=== PATIENT | female | born 1955 | race Caucasian/White ===

== ENCOUNTER → 2018-09-07 07:41 | Outpatient (CLI) | payer BC, SELFPAY ==
--- NOTE | 2018-09-07 07:50 | RAD_ITS ---
STUDY: X-RAY - RIGHT SHOULDER REASON FOR EXAM: Female, 62 years old. Pain. TECHNIQUE: 4 view(s) of the shoulder. COMPARISON: None. FINDINGS: There is mild degenerative arthrosis of the glenohumeral articulation. There is degenerative arthrosis of the acromioclavicular joint without inferior osseous spur formation. Normal acromion. There is no acute fracture, dislocation or destructive osseous pathology. Normal humeral head and visualized proximal humerus. The soft tissue structures are unremarkable. There are surgical clips in the axilla. There is a questionable infiltrate in the lateral right upper lobe. RAD/Shoulder min 2 Views IMPRESSION: 1. Mild degenerative changes of the shoulder without fracture or dislocation. 2. Question infiltrate or mass in the right upper lobe. 3. Surgical clips in the right axilla. Electronically Signed: Aleksandr Velasquez DO at 22:37 EST Tel [phone], Service support ,
--- NOTE | 2018-09-07 07:50 | RAD_ITS ---
STUDY: X-RAY - CERVICAL SPINE REASON FOR EXAM: Female, 62 years old. Back pain. TECHNIQUE: 3 view(s) of the cervical spine were obtained. COMPARISON: None FINDINGS: There are degenerative changes of the anterior atlantoaxial articulation. Normal odontoid process. Normal cervical lordosis. There is mild endplate spondylosis and disc space narrowing at C6-7. The remainder of the disc spaces appear normal. There is no evidence of acute fracture or loss of vertebral axial height.. There is maintenance of normal alignment The soft tissue structures are unremarkable. RAD/Cerv Spine 2 or 3 Views IMPRESSION: Mild degenerative changes of the cervical spine. Electronically Signed: Aleksandr Velasquez DO at 23:23 EST Tel [phone], Service support ,
== END ==
PROVIDERS: Family Provider Internal Medicine; PCP Internal Medicine; Referring Provider Nurse Practitioner Gerontology; Visit Provider Nurse Practitioner Gerontology
DX: M25.511 Pain in right shoulder (principal)
CPT/HCPCS: 72040; 73030

== ENCOUNTER 2018-09-13 16:22 | Outpatient (RCR) | payer BC, SELFPAY ==
--- NOTE | 2018-09-13 18:23 | HP.PTEVAL ---
Patient's Visit Information MARTY LARA is a 62 year old F referred to Physical Therapy by JERRELL Vásquez with a diagnosis of R shoulder pain. Date of Evaluation: 09/13/18 Physical Therapist: DARIEN Snow - Visit Plan Plan: Hold chart X3 weeks and give HEP consisting of watching posture and mid rows with green t-band. Pt reports that she has not had pain since Tuesday. She reports that she is having an old L shoulder issue and nothing now in her R shoulder. - Subjective Findings: Pt was having some pain to the elbow and sometimes to the wrist. Last she could not get her arm behind her back, could not raise it over her head. She did have an x-ray and showed arthritis. She got a inflammation pill and tyleonl and by sat it felt great. It was down her R arm. She has no neck pain. No weakness in arm and fingers. The tuesday before she twisted 250 caps at work repetitive... and it was bothering her a little before. No N$T. Sits some at a computer or lifts 50# pails or repetitive work. She can sleep on that shoulder now. - Pain R shoulder pain Pain Intensity (Out of 10): 0 - Objective Full R shoulder AROM... Pt has some decreased ROM of her L shoulder especially flexion and IR. 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 C-spine AROM: flex 100%, ext 75%, Rot B 75%. No tenderness to palpation. UE MMT: R shld flex 4/5, L 4-/5, L shld abd 4/5 and R NT, L ER 4/5 and IR L 4/5. -Drop arm test L, - empty can test L, -HK test lest, -impingement L - Rehabilitation Potential Rehabilitation Potential: Good - Anticipated Interventions Thank you for the opportunity to evaluate your patient. For Medicare and Medicare HMO plans, please review the plan of care and approve it. It will need to be FAXED BACK to us at [phone] for Medicare purposes. For Medicare only, by signing this I certify the plan of care. Please let me know if there are questions or concerns regarding this plan of care. Physician Signature: Date:
--- OUTSIDE RECORDS SUMMARY | 2018-11-18 16:18 | XMS RPT_ITS | Continuity of Care Document ---
:1955 Author Organization [facility] Address [facility] [address] [place] [address] Phone Care Team Providers Name Role Phone Kalyn Forbes DO Unavailable Ekaterina SIM, Dr. Fidencio Pena Unavailable Bethany Hutchison Unavailable Kalyn Forbes DO Unavailable VENKAT Arthur Unavailable Unavailable Unavailable Unavailable Problems Name Dates Details Acne, NOS (706.1) Comments: L ear ext canal Status: Active Acute sinusitis, unspecified (J01.90, 461.9) Status: Active Allergic Rhinitis (J30.9, 477.9) Status: Active Anxiety (F41.9, 300.00) Status: Active Asthma (J45.909, 493.90) Status: Active BMI 26.0-26.9,adult (Z68.26, V85.22) Status: Active BMI 27.0-27.9,adult (Z68.27, V85.23) Status: Active BMI 28.0-28.9,adult (Z68.28, V85.24) Status: Active BRONCHITIS, NOT SPECIFIED ACUTE OR CHRONIC (490.) (J40, 490) Status: Active Controlled diabetes mellitus type II without complication (E11.9, 250.00) Status: Active Cough (R05, 786.2) Status: Active DEFORMITY, ACQUIRED, CHEST/RIB (738.3) Status: Active Depression (F32.9, 311) Comments: stalbe Status: Active Diabetes type 2, uncontrolled (E11.65, 250.02) Comments: big jump -pt thnks stress and stress eatign related will do laura for stress cortisol reduction , eat clean and exercise again and if doenst improve next visit will chg meds Status: Active Dizziness (R42, 780.4) Comments: currently described as vertigo -- if persistent pt will let me know -- PT for deanne-- or mri to assure no acoustic neuroma Status: Active Dysuria (R30.0, 788.1) Comments: cont to drink oy1esxybyf juice Status: Active Eustachian tube dysfunction (H69.80, 381.81) Status: Active History of breast cancer in adulthood (Z85.3, V10.3) Comments: x 2- different occurrences Status: Active Hypertension, benign (I10, 401.1) Status: Active Influenza vaccination declined (Renamed from Refused influenza vaccine) (Z28.21, V64.06) Status: Active LEUKEMIA, 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) Status: Active Leukocytosis, unspecified type (D72.829, 288.60) Status: Active Leukopenia (D72.819, 288.50) Comments: also elevated LFT -- will stop chemo at end of march and masci thnks they will resolve-- Status: Active Microalbuminuria (R80.9, 791.0) Comments: on Peter Status: Active Mixed hyperlipidemia (E78.2, 272.2) Comments: didnt tolerate lipitor from elev liver fcnlil uncontrolled pt will work on diet and exericse Status: Active Non-smoker (Z78.9, V49.89) Status: Active Otalgia, unspecified ear (H92.09, 388.70) Status: Active Other specified viral infection, in conditions classified elsewhere and of unspecified site (B97.89, 079.89) Comments: start off with martha if not better day 7-10 then get script Status: Active Scleral icterus (R17, 782.4) Status: Active Unspecified Diagnosis Status: Active Vitamin D deficiency, unspecified (E55.9, 268.9) Comments: increaze 5-6,000 daily Status: Active Medications Name Dates Details Advair Diskus 100-50 MCG/DOSE Inhalation Aerosol Powder Breath Activated 1 Misc bid for 0 days Quantity: 1 {Canister} Refills: 5 Ordered:30-Apr-2016 Chris Forbes DO, DO, Kathleen Start : 30-Apr-2016 Active Effexor XR 75 MG Oral Capsule Extended Release 24 Hour 1 (one) Capsule qd for 90 days Quantity: 90 {Capsule} Refills: 2 Ordered:14-Nov-2017 Chris Forbes DO, DO, Kathleen Start : 14-Nov-2017 Active FLONASE, 50MCG/ACT (Nasal Suspension) 2 (two) Puff(s) daily for 0 days Quantity: 1 {Bottle} Refills: 0 Ordered:23-Apr-2015 Lavonne French CNP Start : 23-Apr-2015 Active FREESTYLE LITE TEST (In Vitro Strip) 1 Strip bid for 0 days Quantity: 100 {Strip} Refills: 11 Ordered:11-Mar-2014 Chris Forbes DO, DO, Kathleen Start : 11-Mar-2014 Active Comments:dx 250.00 Glucophage XR 500 MG Oral Tablet Extended Release 24 Hour 2 (two) Tablet ER 24HR bid for 90 days Quantity: 360 {Tablet} Refills: 3 Ordered:21-Apr-2018 Chris Forbes DO, DO, Kathleen Start : 21-Apr-2018 Active Glucophage XR 500 MG Oral Tablet Extended Release 24 Hour 2 (two) Tablet ER 24HR bid for 0 days Quantity: 360 {Tablet} Refills: 3 Ordered:21-Apr-2018 Chris Forbes DO, DO, Kathleen Start : 21-Apr-2018 Active Lisinopril-Hydrochlorothiazide 20-12.5 MG Oral Tablet 1 (one) Tablet qd for 0 days Quantity: 90 {Tablet} Refills: 3 Ordered:13-Mar-2018 Chris Forbes DO, DO, Kathleen Start : 13-Mar-2018 Active Proventil HFA 108 (90 Base) MCG/ACT Inhalation Aerosol Solution 2 (two) Aerosol Soln Aerosol Soln Q 6hr/PRN for 0 days Quantity: 1 {Inhaler} Refills: 0 Ordered:07-Oct-2017 Brenda Arthur LPN Start : 07-Oct-2017 Active Victoza 18 MG/3ML Subcutaneous Solution Pen-injector 1.8 mg qd sc for 90 days Quantity: 3 {Each} Refills: 3 Ordered:08-May-2018 Evan CAMPBELL KalynEvan Kalyn Start : 08-May-2018 Active ACYCLOVIR, 400MG (Oral Tablet) 1 Tablet bid for 30 days Refills: 0 Ordered:29-Jun-2013 Brenda Arthur LPN Start : 23-Feb-2012 End : 29-Jun-2013 Inactive ALBUTEROL SULFATE, 4MG (Oral Tablet Extended Release 12 Hour) 1 (one) Tablet ER 12HR Twice daily for 0 days Quantity: 10 {Tablet_ER_12HR} Refills: 0 Ordered:08-Nov-2007 Sofia Ahmadi Start : 08-Nov-2007 End : 19-Jan-2008 Inactive allergy shots she gives herself Inactive AMARYL, 1MG (Oral Tablet) 1 Tablet bid for 0 days Quantity: 60 {Tablet} Refills: 4 Ordered:21-Feb-2012 Brenda Arthur LPN Start : 25-Oct-2011 End : 21-Feb-2012 Inactive ASPIRIN LOW DOSE, 81MG (Oral Tablet) 1 QD for 0 days Refills: 0 Ordered:17-May-2008 Sofia Ahmadi End : 12-Jun-2007 Inactive AVELOX, 400MG (Oral Tablet) 1 (one) Tablet Daily for 0 days Quantity: 7 {Tablet} Refills: 0 Ordered:08-Oct-2009 Brenda Arthur LPN Start : 22-May-2009 Inactive Benzonatate 200 MG Oral Capsule 1 (one) Capsule tid prn cough for 0 days Quantity: 30 {Capsule} Refills: 0 Ordered:26-May-2018 Brenda Arthur LPN Start : 07-Oct-2017 End : 26-May-2018 Inactive Bethanechol Chloride 10 MG Oral Tablet 1 (one) Tablet qd for 30 days Quantity: 30 {Tablet} Refills: 3 Ordered:13-Aug-2016 Brenda Arthur LPN Start : 04-Apr-2015 End : 13-Aug-2016 Inactive BIAXIN XL PAC, 500MG (Oral Tablet Extended Release 24 Hour) 2 (two) Tablet ER 24HR daily for 10 days Quantity: 20 {Tablet} Refills: 0 Ordered:23-Apr-2015 Lavonne French CNP Start : 23-Apr-2015 End : 03-May-2015 Inactive BIAXIN, 500MG (Oral Tablet) 1 Tablet Twice daily for 0 days Quantity: 20 {Tablet} Refills: 0 Ordered:08-Oct-2009 Brenda Arthur LPN Start : 18-Aug-2009 Inactive CEFDINIR, 300MG (Oral Capsule) 1 Capsule bid for 0 days Quantity: 10 {Capsule} Refills: 0 Ordered:09-Aug-2011 Maria Del Rosario Julien LPN Start : 02-Jul-2011 End : 09-Aug-2011 Inactive CEPHALEXIN, 500MG (Oral Capsule) 1 Capsule tid for 0 days Quantity: 30 {Capsule} Refills: 0 Ordered:30-Mar-2013 Brenda Arthur LPN Start : 01-Jan-2013 End : 30-Mar-2013 Inactive CIPRO HC, 0.2-1% (Otic Suspension) 2 (two) Drop(s) tid for 0 days Quantity: 1 {Bottle(s)} Refills: 0 Ordered:19-Nov-2011 Brenda Arthur LPN Start : 26-Oct-2011 End : 19-Nov-2011 Inactive Claritin 10 MG Oral Capsule 1 (one) Capsule Capsule daily for 0 days Quantity: 30 {Capsule} Refills: 0 Ordered:13-Aug-2016 Brenda Arthur LPN Start : 23-Apr-2015 End : 13-Aug-2016 Inactive CLINDAMYCIN HCL, 150MG (Oral Capsule) 2 Capsule qid for 0 days Quantity: 16 {Capsule} Refills: 0 Ordered:27-Feb-2009 CORBIN Kwok Start : 29-Nov-2008 End : 27-Feb-2009 Inactive COD LIVER OIL (Oral Capsule) 3 (three) Capsule Capsule qd for 360 days Refills: 0 Ordered:11-Jul-2015 Brenda Arthur LPN Start : 27-Dec-2014 End : 11-Jul-2015 Inactive Comments:std process DRISDOL, [id number] (Oral Capsule) 1 Capsule qweek for 360 days Refills: 0 Ordered:02-Aug-2011 Brenda Arthur LPN Start : 20-Jul-2010 End : 15-Jul-2011 Inactive EFFEXOR XR, 37.5MG (Oral Capsule Extended Release 24 Hour) 1 qd (37.5 MG) Inactive ETODOLAC CR, 400MG (Oral Tablet Extended Release 24 Hour) 2 (two) Tablet ER 24HR qd with food for 0 days Quantity: 30 {Tablet_ER_24HR} Refills: 0 Ordered:09-Aug-2011 Maria Del Rosario Julien LPN Start : 31-May-2011 End : 09-Aug-2011 Inactive FOLIC ACID, 1MG (Oral Tablet) 1 Tablet qd for 30 days Refills: 0 Ordered:30-Mar-2013 Brenda Arthur LPN Start : 17-Oct-2012 End : 30-Mar-2013 Inactive Comments:none on tuesday GABAPENTIN, 300MG (Oral Capsule) 1 Capsule qd for 30 days Refills: 0 Ordered:02-Jul-2011 Evan CAMPBELL Sebmark Kalyn Start : 10-May-2011 End : 09-Jun-2011 Inactive HUMALOG MIX 75/25 KWIKPEN, (75-25) 100UNIT/ML (Subcutaneous Suspension Pen-injector) tad Suspension 10 units in am and 10 units in pm for 0 days Quantity: 1 {Suspension} Refills: 6 Ordered:04-Oct-2014 Brenda Arthur LPN Start : 01-Oct-2013 End : 04-Oct-2014 Inactive Comments:new dose HYCODAN, 5-1.5MG/5ML (Oral Syrup) 1 (one) Syrup QHS / HS for 0 days Quantity: 60 {Syrup} Refills: 0 Ordered:08-Nov-2007 Sofia Ahmadi Start : 08-Nov-2007 End : 19-Jan-2008 Inactive LEVAQUIN, 500MG (Oral Tablet) 1 Tablet daily for 10 days Quantity: 10 {Tablet} Refills: 0 Ordered:27-Dec-2014 Brenda Arthur LPN Start : 25-Nov-2014 End : 27-Dec-2014 Inactive LOVAZA, 1GM (Oral Capsule) 4 Capsule Daily for 0 days Refills: 0 Ordered:03-Aug-2007 Sofia Ahmadi Start : 03-Aug-2007 End : 19-Jan-2008 Inactive MAGNESIUM OXIDE, 400MG (Oral Capsule) 1 Capsule bid for 30 days Refills: 0 Ordered:17-Oct-2012 Brenda Arthur LPN Start : 05-Jun-2012 End : 17-Oct-2012 Inactive METAXALONE, 800MG (Oral Tablet) 1 Tablet tid prn for 0 days Quantity: 30 {Tablet} Refills: 0 Ordered:09-Aug-2011 Maria Del Rosario Julien LPN Start : 31-May-2011 End : 09-Aug-2011 Inactive Comments:thirty OMNICEF, 300MG (Oral Capsule) Capsule BID for 0 days Quantity: 20 {Capsule} Refills: 0 Ordered:08-Oct-2009 Brenda Arthur LPN Start : 07-Mar-2009 Inactive PAXIL, 40MG (Oral Tablet) 1 QD for 0 days Refills: 0 Ordered:17-May-2008 Sofia Ahmadi End : 12-Jun-2007 Inactive PREDNISONE, 20MG (Oral Tablet) 1 Tablet Daily for 0 days Quantity: 3 {Tablet} Refills: 0 Ordered:10-May-2011 Brenda Arthur LPN Start : 29-Mar-2011 End : 10-May-2011 Inactive SINGULAIR, 10MG (Oral Tablet) 1 tab Daily for 0 days Refills: 0 Ordered:08-Oct-2009 Brenda Arthurtive Tamoxifen Citrate 10 MG Oral Tablet (10 MG) Inactive Comments:daily TESSALON, 200MG (Oral Capsule) 1 (one) Capsule TID for 0 days Quantity: 30 {Capsule} Refills: 0 Ordered:08-Nov-2007 Sofia Ahmadi Start : 08-Nov-2007 End : 19-Jan-2008 Inactive TRETINOIN, 10MG (Oral Capsule) 4 Capsule bid for 30 days Refills: 0 Ordered:30-Mar-2013 Brenda Arthur LPN Start : 17-Oct-2012 End : 30-Mar-2013 Inactive Comments:start this after cancer tx VESICARE, 5MG (Oral Tablet) 1 qd for 0 days Refills: 0 Ordered:29-Nov-2008 Brenda Arthur LPN End : 29-Nov-2008 Inactive VICODIN HP, 10-660MG (Oral Tablet) 1 Tablet q6-8 hrs prn pain for 0 days Quantity: 10 {Tablet} Refills: 0 Ordered:19-Nov-2011 Brenda Arthur LPN Start : 27-Oct-2011 End : 19-Nov-2011 Inactive Comments:ten VITAMIN D, 92337PSDE (Oral Capsule) 1 q week (25086 U) Inactive VITAMIN D3, 2000UNIT (Oral Capsule) 1 (one) Capsule Capsule qd for 120 days Refills: 0 Ordered:07-Feb-2014 Brenda Arthur LPN Start : 01-Oct-2013 End : 29-Jan-2014 Inactive VITAMIN D3, 99651DYNW (Oral Capsule) 1 Capsule weekly for 0 days Quantity: 4 {Capsule} Refills: 4 Ordered:17-Oct-2012 Brenda Arthur LPN Start : 11-Sep-2012 End : 17-Oct-2012 Inactive Zithromax Z-Tray 250 MG Oral Tablet tad Tablet qd for 0 days Quantity: 1 {Package} Refills: 0 Ordered:26-May-2018 Brenda Arthur LPN Start : 07-Oct-2017 End : 26-May-2018 Inactive ARIMIDEX, 1MG (Oral Tablet) 1 qd (1 MG) End : 25-Mar-2016 Discontinued Benicar HCT 20-12.5 MG Oral Tablet 1 (one) Tablet daily for 0 days Quantity: 30 {Tablet} Refills: 3 Ordered:06-Dec-2016 Chris Forbes DO, DO, Kathleen Start : 06-Dec-2016 End : 06-Dec-2016 Discontinued LIPITOR, 20MG (Oral Tablet) 1 Tablet qd for 0 days Quantity: 30 {Tablet} Refills: 6 Ordered:13-Nov-2012 Chris Forbes DO, DO, Kathleen Start : 13-Nov-2012 End : 13-Nov-2012 Discontinued Comments:elev lft Meclizine HCl 25 MG Oral Tablet 1 (one) Tablet q 8 hr prn for 0 days Quantity: 20 {Tablet} Refills: 0 Ordered:30-Apr-2016 Fatuma Zambrano LPN Start : 25-Mar-2016 End : 30-Apr-2016 Discontinued ONGLYZA, 5MG (Oral Tablet) 1 Tablet qd for 0 days Quantity: 30 {Tablet} Refills: 3 Ordered:04-Jan-2014 Chris Forbes DO, DO, Kathleen Start : 04-Jan-2014 End : 04-Jan-2014 Discontinued Allergies and Adverse Reactions Name Dates Details Penicillins (Allergy) Status: Active Comments: rash and swelling years ago Vicodin *ANALGESICS - OPIOID* (Allergy) Status: Active Past Medical History Name Dates Details Abnormal lung sounds (R09.89, 786.7) Status: Inactive as of 27-Feb-2009 Benign essential hypertension (I10, 401.1) Status: Resolved as of 27-Feb-2009 Cellulitis (L03.90, 682.9) Comments: patient phone call sat- small area on arm red and she has hx of cellulitis- chemo last week as far as she knows recent white count normal- told her to go to er if worse fever feels ill- ;which she felt fine and no fever now-called to [facility] in [place] Status: Inactive as of 30-Mar-2013 Cellulitis of arm (L03.119, 682.3) Status: Inactive as of 12-Jan-2010 Chest pain (R07.9, 786.59) Comments: GI RELATED?? TUMS MADE BETTER - EHCO AND PREV STRSS OK Status: Inactive as of 27-Feb-2009 Cough (R05, 786.2) Status: Inactive as of 22-Jan-2009 Cough (R05, 786.2) Status: Resolved as of 26-May-2018 Fatigue (R53.83, 780.79) Comments: exercise--mvi--and r/o dm Status: Inactive as of 22-Jan-2009 Foot pain (M79.673, 729.5) Comments: ? etiology unclear? Status: Inactive as of 22-Jan-2009 Hyperlipidemia (E78.5, 272.4) Status: Inactive as of 27-Feb-2009 Hypertension (I10, 401.9) Status: Inactive as of 13-Aug-2016 Inflamed skin tag (L91.8, 701.9) Comments: skin cleansed-- [place]ipped [place] and [place] well #11 in total Status: Inactive as of 22-Jan-2009 Jaundice, hepatocellular (573.8) Comments: stopped lipitor adn only on liver clearing chemo agents Status: Resolved as of 13-Nov-2012 Low back pain potentially associated with radiculopathy (M54.5, 724.2) Status: Resolved as of 02-Jul-2011 Malignant neoplasm of breast (female) (C50.919, 174.9) Comments: 1997 and 2009- 2 separate occurrences and 2 separate pathology Status: Inactive as of 31-Jul-2012 Nausea and Vomiting (R11.2, 787.01) Status: Inactive as of 31-Oct-2012 Neoplasm of uncertain behavior, site unspecified (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 no alcohol no pork-- but soft tissue area more tedner so ???will tx with pred nad x-ray to see if improves - if doenst will get in to see pod this week Status: Inactive as of 17-Oct-2012 Pain of lower leg, unspecified laterality (M79.669, 729.5) Status: Inactive as of 27-Feb-2009 Sinusitis, bacterial (J32.9, 473.9) Status: Resolved as of 26-May-2018 Skin lesion (L98.9, 709.9) Comments: irritatedresembles irritated skin tag--no pathology sent Status: Inactive as of 22-Jan-2009 Unspecified asthma with (acute) exacerbation (J45.901, 493.92) Status: Resolved as of 27-Feb-2009 WWV V72.31 Comments: colonscopy 2007 Dr. modesta ugarte, talk about skin screen with assoc melanoma and breast ca Status: Inactive as of 12-Jan-2010 Procedures Procedure Dates Details Colonoscopy Completed Comments: 08/14/07 - Dr. Cramer Hysterectomy; Total Completed Comments: 02/12/13 Tonsillectomy Completed Date Value Details 04-Apr-2015 Spirometry (31288) Comments: restriction disease-technique dependent Result: 01-Apr-2014 Spirometry (22126) Comments: normal Result: Family History Unknown Family Member Name Dates Details Father Comments: perfect health-- from colon cancer at age 70 Status: Active Mother Comments: hi cholesterol Status: Active Social History Name Dates Details No Drug Use Status: Active Non Drinker/No Alcohol Use Status: Active Non Smoker/No Tobacco Use Status: Active Tobacco use: Never smoker. Comments: 11/19/11 Status: Active Tobacco use: Never smoker. Status: Active Smoking Status Name Dates Details Never smoker Vital Signs Date Test Result Details [id number] Temperature 97.5 f Comments: Method: Temporal Pulse 110 /min Comments: Pattern: Regular Respiration Rate 18 /min Comments: Pattern: Unlabored O2 SAT 96 % Comments: Room air BP Systolic 120 mm[Hg] Comments: Patient Position: Sitting; Cuff Location: Left Arm; Cuff Size: Large BP Diastolic 82 mm[Hg] Comments: Patient Position: Sitting; Cuff Location: Left Arm; Cuff Size: Large Weight 164.125 lb Height 65 in Body Mass Index Calculated 27.31 kg/m2 Body Surface Area Calculated 1.82 m2 :15 Pulse 65 /min Comments: Pattern: Regular Respiration Rate 18 /min Comments: Pattern: Unlabored O2 SAT 97 % Comments: Room air BP Systolic 104 mm[Hg] Comments: Patient Position: Sitting; Cuff Location: Left Arm; Cuff Size: Standard BP Diastolic 68 mm[Hg] Comments: Patient Position: Sitting; Cuff Location: Left Arm; Cuff Size: Standard Weight 162.5 lb Height 65 in Body Mass Index Calculated 27.04 kg/m2 Body Surface Area Calculated 1.81 m2 :59 Temperature 98.2 f Comments: Method: Temporal Pulse 119 /min Comments: Pattern: Regular Respiration Rate 18 /min Comments: Pattern: Unlabored O2 SAT 97 % Comments: Room air BP Systolic 128 mm[Hg] Comments: Patient Position: Sitting; Cuff Location: Left Arm; Cuff Size: Large BP Diastolic 78 mm[Hg] Comments: Patient Position: Sitting; Cuff Location: Left Arm; Cuff Size: Large Weight 161.25 lb Height 65 in Body Mass Index Calculated 26.83 kg/m2 Body Surface Area Calculated 1.81 m2 :18 Pulse 94 /min Comments: Pattern: Regular Respiration Rate 18 /min Comments: Pattern: Unlabored O2 SAT 95 % Comments: Room air BP Systolic 120 mm[Hg] Comments: Patient Position: Sitting; Cuff Location: Left Arm; Cuff Size: Large BP Diastolic 78 mm[Hg] Comments: Patient Position: Sitting; Cuff Location: Left Arm; Cuff Size: Large Weight 161.25 lb Height 65 in Body Mass Index Calculated 26.83 kg/m2 Body Surface Area Calculated 1.81 m2 :57 Pulse 107 /min Comments: Pattern: Regular Respiration Rate 18 /min Comments: Pattern: Unlabored O2 SAT 97 % Comments: Room air BP Systolic 118 mm[Hg] Comments: Patient Position: Sitting; Cuff Location: Left Arm; Cuff Size: Large BP Diastolic 80 mm[Hg] Comments: Patient Position: Sitting; Cuff Location: Left Arm; Cuff Size: Large Weight 161.375 lb Height 65 in Body Mass Index Calculated 26.85 kg/m2 Body Surface Area Calculated 1.81 m2 :36 Pulse 84 /min Comments: Pattern: Regular Respiration Rate 18 /min Comments: Pattern: Unlabored O2 SAT 98 % Comments: Room air BP Systolic 120 mm[Hg] Comments: Patient Position: Sitting; Cuff Location: Left Arm; Cuff Size: Large BP Diastolic 80 mm[Hg] Comments: Patient Position: Sitting; Cuff Location: Left Arm; Cuff Size: Large Weight 169.5 lb Height 65 in Body Mass Index Calculated 28.21 kg/m2 Body Surface Area Calculated 1.84 m2 :10 Pulse 94 /min Comments: Pattern: Regular Respiration Rate 18 /min Comments: Pattern: Unlabored O2 SAT 96 % Comments: Room air BP Systolic 120 mm[Hg] Comments: Patient Position: Sitting; Cuff Location: Left Arm; Cuff Size: Standard BP Diastolic 78 mm[Hg] Comments: Patient Position: Sitting; Cuff Location: Left Arm; Cuff Size: Standard Weight 172.125 lb Height 65 in Body Mass Index Calculated 28.64 kg/m2 Body Surface Area Calculated 1.86 m2 :27 Pulse 96 /min Comments: Pattern: Regular Respiration Rate 18 /min Comments: Pattern: Unlabored O2 SAT 97 % Comments: Room air BP Systolic 122 mm[Hg] Comments: Patient Position: Sitting; Cuff Location: Left Arm; Cuff Size: Large BP Diastolic 70 mm[Hg] Comments: Patient Position: Sitting; Cuff Location: Left Arm; Cuff Size: Large Weight 174.125 lb Height 65 in Body Mass Index Calculated 28.98 kg/m2 Body Surface Area Calculated 1.87 m2 :15 Pulse 111 /min Comments: Pattern: Regular Respiration Rate 18 /min Comments: Pattern: Unlabored O2 SAT 96 % Comments: Room air BP Systolic 122 mm[Hg] Comments: Patient Position: Sitting; Cuff Location: Left Arm; Cuff Size: Large BP Diastolic 68 mm[Hg] Comments: Patient Position: Sitting; Cuff Location: Left Arm; Cuff Size: Large Weight 174.125 lb Height 65 in Body Mass Index Calculated 28.98 kg/m2 Body Surface Area Calculated 1.87 m2 :14 Temperature 97.2 f Pulse 99 /min Comments: Pattern: Regular Respiration Rate 17 /min Comments: Pattern: Unlabored O2 SAT 96 % Comments: Room air BP Systolic 122 mm[Hg] Comments: Patient Position: Sitting; Cuff Location: Left Arm; Cuff Size: Standard BP Diastolic 80 mm[Hg] Comments: Patient Position: Sitting; Cuff Location: Left Arm; Cuff Size: Standard Weight 173 lb Height 65 in Body Mass Index Calculated 28.79 kg/m2 Body Surface Area Calculated 1.86 m2 :57 Temperature 97.6 f Pulse 80 /min Comments: Pattern: Regular Respiration Rate 18 /min Comments: Pattern: Unlabored O2 SAT 98 % Comments: Room air BP Systolic 118 mm[Hg] Comments: Patient Position: Sitting; Cuff Location: Left Arm; Cuff Size: Standard BP Diastolic 80 mm[Hg] Comments: Patient Position: Sitting; Cuff Location: Left Arm; Cuff Size: Standard Weight 179.375 lb Height 65 in Body Mass Index Calculated 29.85 kg/m2 Body Surface Area Calculated 1.89 m2 :57 Pulse 93 /min Comments: Pattern: Regular Respiration Rate 18 /min Comments: Pattern: Unlabored O2 SAT 98 % Comments: Room air BP Systolic 122 mm[Hg] Comments: Patient Position: Sitting; Cuff Location: Left Arm; Cuff Size: Standard BP Diastolic 78 mm[Hg] Comments: Patient Position: Sitting; Cuff Location: Left Arm; Cuff Size: Standard Weight 179.375 lb Height 65 in Body Mass Index Calculated 29.85 kg/m2 Body Surface Area Calculated 1.89 m2 :09 Temperature 97.7 f Comments: Method: Temporal Pulse 105 /min Comments: Pattern: Regular Respiration Rate 18 /min Comments: Pattern: Unlabored O2 SAT 98 % Comments: Room air BP Systolic 108 mm[Hg] Comments: Patient Position: Sitting; Cuff Location: Left Arm; Cuff Size: Large BP Diastolic 58 mm[Hg] Comments: Patient Position: Sitting; Cuff Location: Left Arm; Cuff Size: Large Weight 175.375 lb Height 65 in Body Mass Index Calculated 29.18 kg/m2 Body Surface Area Calculated 1.87 m2 :00 Pulse 97 /min Comments: Pattern: Regular Respiration Rate 18 /min Comments: Pattern: Unlabored O2 SAT 97 % Comments: Room air BP Systolic 122 mm[Hg] Comments: Patient Position: Sitting; Cuff Location: Left Arm; Cuff Size: Large BP Diastolic 78 mm[Hg] Comments: Patient Position: Sitting; Cuff Location: Left Arm; Cuff Size: Large Weight 179.25 lb Height 65 in Body Mass Index Calculated 29.83 kg/m2 Body Surface Area Calculated 1.89 m2 :56 Temperature 98.2 f Pulse 103 /min Comments: Pattern: Regular Respiration Rate 16 /min Comments: Pattern: Unlabored O2 SAT 96 % Comments: Room air BP Systolic 122 mm[Hg] Comments: Patient Position: Sitting; Cuff Location: Left Arm; Cuff Size: Standard BP Diastolic 78 mm[Hg] Comments: Patient Position: Sitting; Cuff Location: Left Arm; Cuff Size: Standard Weight 174 lb Height 65 in Body Mass Index Calculated 28.95 kg/m2 Body Surface Area Calculated 1.86 m2 :13 Pulse 97 /min Comments: Pattern: Regular Respiration Rate 18 /min Comments: Pattern: Unlabored O2 SAT 97 % Comments: Room air BP Systolic 118 mm[Hg] Comments: Patient Position: Sitting; Cuff Location: Left Arm; Cuff Size: Large BP Diastolic 62 mm[Hg] Comments: Patient Position: Sitting; Cuff Location: Left Arm; Cuff Size: Large Weight 176.5 lb Height 65 in Body Mass Index Calculated 29.37 kg/m2 Body Surface Area Calculated 1.88 m2 :20 Pulse 72 /min Comments: Pattern: Regular Respiration Rate 18 /min Comments: Pattern: Unlabored O2 SAT 96 % Comments: Room air BP Systolic 120 mm[Hg] Comments: Patient Position: Sitting; Cuff Location: Left Arm; Cuff Size: Large BP Diastolic 78 mm[Hg] Comments: Patient Position: Sitting; Cuff Location: Left Arm; Cuff Size: Large Weight 173.125 lb Height 65 in Body Mass Index Calculated 28.81 kg/m2 Body Surface Area Calculated 1.86 m2 :59 Temperature 97.1 f Comments: Method: Temporal Pulse 107 /min Comments: Pattern: Regular Respiration Rate 18 /min Comments: Pattern: Unlabored O2 SAT 97 % Comments: Room air BP Systolic 128 mm[Hg] Comments: Patient Position: Sitting; Cuff Location: Left Arm; Cuff Size: Large BP Diastolic 78 mm[Hg] Comments: Patient Position: Sitting; Cuff Location: Left Arm; Cuff Size: Large Weight 172.375 lb Height 65 in Body Mass Index Calculated 28.68 kg/m2 Body Surface Area Calculated 1.86 m2 :08 Pulse 102 /min Comments: Pattern: Regular Respiration Rate 20 /min Comments: Pattern: Unlabored O2 SAT 97 % Comments: Room air BP Systolic 118 mm[Hg] Comments: Patient Position: Sitting; Cuff Location: Left Arm; Cuff Size: Large BP Diastolic 70 mm[Hg] Comments: Patient Position: Sitting; Cuff Location: Left Arm; Cuff Size: Large Weight 172.25 lb Height 65 in Body Mass Index Calculated 28.66 kg/m2 Body Surface Area Calculated 1.86 m2 :03 Pulse 94 /min Comments: Pattern: Regular Respiration Rate 20 /min Comments: Pattern: Unlabored O2 SAT 98 % Comments: Room air BP Systolic 118 mm[Hg] Comments: Patient Position: Sitting; Cuff Location: Left Arm; Cuff Size: Large BP Diastolic 68 mm[Hg] Comments: Patient Position: Sitting; Cuff Location: Left Arm; Cuff Size: Large Weight 176.5625 lb Height 65 in Body Mass Index Calculated 29.38 kg/m2 Body Surface Area Calculated 1.88 m2 :00 Temperature 97.9 f Comments: Method: Oral Pulse 65 /min Comments: Pattern: Regular Respiration Rate 18 /min Comments: Pattern: Unlabored O2 SAT 98 % Comments: Room air BP Systolic 118 mm[Hg] Comments: Patient Position: Sitting; Cuff Location: Left Arm; Cuff Size: Standard BP Diastolic 78 mm[Hg] Comments: Patient Position: Sitting; Cuff Location: Left Arm; Cuff Size: Standard Weight 173 lb Height 65 in Body Mass Index Calculated 28.79 kg/m2 Body Surface Area Calculated 1.86 m2 :19 Pulse 80 /min Comments: Pattern: Regular Respiration Rate 18 /min Comments: Pattern: Unlabored O2 SAT 98 % Comments: Room air BP Systolic 118 mm[Hg] Comments: Patient Position: Sitting; Cuff Location: Left Arm; Cuff Size: Standard BP Diastolic 80 mm[Hg] Comments: Patient Position: Sitting; Cuff Location: Left Arm; Cuff Size: Standard Weight 177.5625 lb Height 65 in Body Mass Index Calculated 29.55 kg/m2 Body Surface Area Calculated 1.88 m2 :10 Pulse 112 /min Comments: Pattern: Regular Respiration Rate 20 /min Comments: Pattern: Unlabored O2 SAT 98 % Comments: Room air BP Systolic 118 mm[Hg] Comments: Patient Position: Sitting; Cuff Location: Left Arm; Cuff Size: Large BP Diastolic 62 mm[Hg] Comments: Patient Position: Sitting; Cuff Location: Left Arm; Cuff Size: Large Weight 181.375 lb Height 65 in Body Mass Index Calculated 30.18 kg/m2 Body Surface Area Calculated 1.9 m2 :07 Temperature 98.4 f Comments: Method: Oral Pulse 93 /min Comments: Pattern: Regular Respiration Rate 16 /min Comments: Pattern: Unlabored O2 SAT 98 % Comments: Room air BP Systolic 122 mm[Hg] Comments: Patient Position: Sitting; Cuff Location: Left Arm; Cuff Size: Large BP Diastolic 70 mm[Hg] Comments: Patient Position: Sitting; Cuff Location: Left Arm; Cuff Size: Large Weight 186.25 lb Height 65 in Body Mass Index Calculated 30.99 kg/m2 Body Surface Area Calculated 1.92 m2 :35 Pulse 110 /min Comments: Pattern: Regular Respiration Rate 18 /min Comments: Pattern: Unlabored O2 SAT 98 % Comments: Room air BP Systolic 122 mm[Hg] Comments: Patient Position: Sitting; Cuff Location: Left Arm; Cuff Size: Large BP Diastolic 82 mm[Hg] Comments: Patient Position: Sitting; Cuff Location: Left Arm; Cuff Size: Large Weight 186.25 lb Height 65 in Body Mass Index Calculated 30.99 kg/m2 Body Surface Area Calculated 1.92 m2 :41 Temperature 97.6 f Comments: Method: Oral Pulse 60 /min Comments: Pattern: Regular Respiration Rate 20 /min Comments: Pattern: Unlabored BP Systolic 122 mm[Hg] Comments: Patient Position: Sitting; Cuff Location: Left Arm; Cuff Size: Large BP Diastolic 70 mm[Hg] Comments: Patient Position: Sitting; Cuff Location: Left Arm; Cuff Size: Large Weight 184.4375 lb Height 65 in Body Mass Index Calculated 30.69 kg/m2 Body Surface Area Calculated 1.91 m2 :37 Temperature 98.6 f Comments: Method: Oral Pulse 64 /min Comments: Pattern: Regular Respiration Rate 18 /min Comments: Pattern: Unlabored BP Systolic 108 mm[Hg] Comments: Patient Position: Sitting; Cuff Location: Left Arm; Cuff Size: Thigh BP Diastolic 68 mm[Hg] Comments: Patient Position: Sitting; Cuff Location: Left Arm; Cuff Size: Thigh Weight 178.3125 lb Height 65 in Body Mass Index Calculated 29.67 kg/m2 Body Surface Area Calculated 1.88 m2 :03 Temperature 97.4 f Comments: Method: Oral Pulse 60 /min Comments: Pattern: Regular Respiration Rate 18 /min Comments: Pattern: Unlabored BP Systolic 110 mm[Hg] Comments: Patient Position: Sitting; Cuff Location: Left Arm; Cuff Size: Large BP Diastolic 60 mm[Hg] Comments: Patient Position: Sitting; Cuff Location: Left Arm; Cuff Size: Large Weight 176.4375 lb Height 65 in Body Mass Index Calculated 29.36 kg/m2 Body Surface Area Calculated 1.88 m2 :44 Temperature 98.6 f Comments: Method: Oral Pulse 88 /min Comments: Pattern: Regular Respiration Rate 16 /min Comments: Pattern: Unlabored BP Systolic 116 mm[Hg] Comments: Patient Position: Sitting; Cuff Location: Left Arm; Cuff Size: Standard BP Diastolic 70 mm[Hg] Comments: Patient Position: Sitting; Cuff Location: Left Arm; Cuff Size: Standard Weight 176.4375 lb Height 65 in Body Mass Index Calculated 29.36 kg/m2 Body Surface Area Calculated 1.88 m2 :56 Temperature 97.9 f Comments: Method: Oral Pulse 72 /min Comments: Pattern: Regular Respiration Rate 16 /min Comments: Pattern: Unlabored BP Systolic 118 mm[Hg] Comments: Patient Position: Sitting; Cuff Location: Left Arm; Cuff Size: Standard BP Diastolic 78 mm[Hg] Comments: Patient Position: Sitting; Cuff Location: Left Arm; Cuff Size: Standard Weight 175.125 lb Height 65 in Body Mass Index Calculated 29.14 kg/m2 Body Surface Area Calculated 1.87 m2 :06 Temperature 98.8 f Comments: Method: Oral Pulse 72 /min Comments: Pattern: Regular Respiration Rate 20 /min Comments: Pattern: Unlabored BP Systolic 118 mm[Hg] Comments: Patient Position: Sitting; Cuff Location: Left Arm; Cuff Size: Large BP Diastolic 70 mm[Hg] Comments: Patient Position: Sitting; Cuff Location: Left Arm; Cuff Size: Large Weight 175.4375 lb Height 65 in Body Mass Index Calculated 29.19 kg/m2 Body Surface Area Calculated 1.87 m2 :02 Temperature 99 f Comments: Method: Oral Pulse 94 /min Comments: Pattern: Regular Respiration Rate 16 /min Comments: Pattern: Unlabored O2 SAT 98 % Comments: Room air BP Systolic 112 mm[Hg] Comments: Patient Position: Sitting; Cuff Location: Left Arm; Cuff Size: Standard BP Diastolic 60 mm[Hg] Comments: Patient Position: Sitting; Cuff Location: Left Arm; Cuff Size: Standard Weight 177.4375 lb Height 65 in Body Mass Index Calculated 29.53 kg/m2 Body Surface Area Calculated 1.88 m2 :10 Pulse 88 /min Comments: Pattern: Regular Respiration Rate 20 /min Comments: Pattern: Unlabored BP Systolic 118 mm[Hg] Comments: Patient Position: Sitting; Cuff Location: Left Arm; Cuff Size: Large BP Diastolic 62 mm[Hg] Comments: Patient Position: Sitting; Cuff Location: Left Arm; Cuff Size: Large Weight 179.4375 lb Height 65 in Body Mass Index Calculated 29.86 kg/m2 Body Surface Area Calculated 1.89 m2 :00 Temperature 98.1 f Comments: Method: Oral Pulse 60 /min Comments: Pattern: Regular Respiration Rate 18 /min Comments: Pattern: Unlabored BP Systolic 122 mm[Hg] Comments: Patient Position: Sitting; Cuff Location: Left Arm; Cuff Size: Large BP Diastolic 70 mm[Hg] Comments: Patient Position: Sitting; Cuff Location: Left Arm; Cuff Size: Large Weight 179.4375 lb Height 65 in Body Mass Index Calculated 29.86 kg/m2 Body Surface Area Calculated 1.89 m2 :52 Temperature 98 f Comments: Method: Oral Pulse 60 /min Comments: Pattern: Regular Respiration Rate 18 /min Comments: Pattern: Unlabored BP Systolic 118 mm[Hg] Comments: Patient Position: Sitting; Cuff Location: Left Arm; Cuff Size: Large BP Diastolic 72 mm[Hg] Comments: Patient Position: Sitting; Cuff Location: Left Arm; Cuff Size: Large Weight 181.5 lb Height 65 in Body Mass Index Calculated 30.2 kg/m2 Body Surface Area Calculated 1.9 m2 :34 Temperature 97.6 f Comments: Method: Temporal Pulse 68 /min Comments: Pattern: Regular Respiration Rate 16 /min Comments: Pattern: Unlabored BP Systolic 122 mm[Hg] Comments: Patient Position: Sitting; Cuff Location: Left Arm; Cuff Size: Standard BP Diastolic 76 mm[Hg] Comments: Patient Position: Sitting; Cuff Location: Left Arm; Cuff Size: Standard Weight 181.1875 lb Height 65 in Body Mass Index Calculated 30.15 kg/m2 Body Surface Area Calculated 1.9 m2 :16 Temperature 98.9 f Comments: Method: Oral Pulse 88 /min Comments: Pattern: Regular Respiration Rate 20 /min Comments: Pattern: Unlabored BP Systolic 120 mm[Hg] Comments: Patient Position: Sitting; Cuff Location: Left Arm; Cuff Size: Large BP Diastolic 72 mm[Hg] Comments: Patient Position: Sitting; Cuff Location: Left Arm; Cuff Size: Large Weight 179.1875 lb Height 65 in Body Mass Index Calculated 29.82 kg/m2 Body Surface Area Calculated 1.89 m2 :13 Temperature 98.1 f Comments: Method: Oral Pulse 88 /min Comments: Pattern: Regular Respiration Rate 20 /min Comments: Pattern: Unlabored BP Systolic 118 mm[Hg] Comments: Patient Position: Sitting; Cuff Location: Left Arm; Cuff Size: Large BP Diastolic 60 mm[Hg] Comments: Patient Position: Sitting; Cuff Location: Left Arm; Cuff Size: Large Weight 177.375 lb Height 65 in Body Mass Index Calculated 29.52 kg/m2 Body Surface Area Calculated 1.88 m2 :56 Temperature 98 f Comments: Method: Oral Pulse 60 /min Comments: Pattern: Regular Respiration Rate 18 /min Comments: Pattern: Unlabored BP Systolic 122 mm[Hg] Comments: Patient Position: Sitting; Cuff Location: Left Arm; Cuff Size: Large BP Diastolic 80 mm[Hg] Comments: Patient Position: Sitting; Cuff Location: Left Arm; Cuff Size: Large Weight 168.125 lb Height 65 in Body Mass Index Calculated 27.98 kg/m2 Body Surface Area Calculated 1.84 m2 :11 Temperature 99.2 f Comments: Method: Oral Pulse 80 /min Comments: Pattern: Regular Respiration Rate 20 /min Comments: Pattern: Unlabored BP Systolic 122 mm[Hg] Comments: Patient Position: Sitting; Cuff Location: Left Arm; Cuff Size: Large BP Diastolic 64 mm[Hg] Comments: Patient Position: Sitting; Cuff Location: Left Arm; Cuff Size: Large Weight 185.3125 lb Height 65 in Body Mass Index Calculated 30.84 kg/m2 Body Surface Area Calculated 1.92 m2 :06 Temperature 98.1 f Comments: Method: Oral Pulse 78 /min Comments: Pattern: Regular Respiration Rate 18 /min Comments: Pattern: Unlabored BP Systolic 138 mm[Hg] Comments: Patient Position: Sitting; Cuff Location: Left Arm; Cuff Size: Standard BP Diastolic 84 mm[Hg] Comments: Patient Position: Sitting; Cuff Location: Left Arm; Cuff Size: Standard Weight 187.5625 lb Height 65 in Body Mass Index Calculated 31.21 kg/m2 Body Surface Area Calculated 1.93 m2 :51 Temperature 98.2 f Comments: Method: Oral Pulse 74 /min Comments: Pattern: Regular Respiration Rate 18 /min Comments: Pattern: Unlabored BP Systolic 124 mm[Hg] Comments: Patient Position: Sitting; Cuff Location: Left Arm; Cuff Size: Standard BP Diastolic 74 mm[Hg] Comments: Patient Position: Sitting; Cuff Location: Left Arm; Cuff Size: Standard Weight 189 lb Height 65 in Body Mass Index Calculated 31.45 kg/m2 Body Surface Area Calculated 1.93 m2 :55 Pulse 90 /min Comments: Pattern: Regular Respiration Rate 20 /min Comments: Pattern: Unlabored BP Systolic 122 mm[Hg] Comments: Patient Position: Sitting; Cuff Location: Left Arm; Cuff Size: Standard BP Diastolic 72 mm[Hg] Comments: Patient Position: Sitting; Cuff Location: Left Arm; Cuff Size: Standard Weight 189.4375 lb Height 65 in Body Mass Index Calculated 31.52 kg/m2 Body Surface Area Calculated 1.93 m2 :27 Temperature 99.3 f Comments: Method: Oral Pulse 68 /min Comments: Pattern: Regular Respiration Rate 20 /min Comments: Pattern: Unlabored BP Systolic 138 mm[Hg] Comments: Patient Position: Sitting; Cuff Location: Left Arm; Cuff Size: Large BP Diastolic 70 mm[Hg] Comments: Patient Position: Sitting; Cuff Location: Left Arm; Cuff Size: Large Weight 187 lb Height 65 in Body Mass Index Calculated 31.12 kg/m2 Body Surface Area Calculated 1.92 m2 :47 Temperature 98.4 f Comments: Method: Oral Pulse 80 /min Comments: Pattern: Regular Respiration Rate 20 /min Comments: Pattern: Unlabored BP Systolic 124 mm[Hg] Comments: Patient Position: Sitting; Cuff Location: Left Arm; Cuff Size: Large BP Diastolic 70 mm[Hg] Comments: Patient Position: Sitting; Cuff Location: Left Arm; Cuff Size: Large Weight 183.25 lb Height 65 in Body Mass Index Calculated 30.49 kg/m2 Body Surface Area Calculated 1.91 m2 :16 Temperature 97.8 f Comments: Method: Oral Pulse 60 /min Comments: Pattern: Regular Respiration Rate 20 /min Comments: Pattern: Unlabored BP Systolic 128 mm[Hg] Comments: Patient Position: Sitting; Cuff Location: Left Arm; Cuff Size: Standard BP Diastolic 82 mm[Hg] Comments: Patient Position: Sitting; Cuff Location: Left Arm; Cuff Size: Standard Weight 183.125 lb Height 65 in Body Mass Index Calculated 30.47 kg/m2 Body Surface Area Calculated 1.91 m2 :46 Temperature 97.8 f Comments: Method: Oral Pulse 68 /min Comments: Pattern: Regular Respiration Rate 20 /min Comments: Pattern: Unlabored BP Systolic 122 mm[Hg] Comments: Patient Position: Sitting; Cuff Location: Left Arm; Cuff Size: Large BP Diastolic 68 mm[Hg] Comments: Patient Position: Sitting; Cuff Location: Left Arm; Cuff Size: Large Weight 184.1875 lb Height 65 in Body Mass Index Calculated 30.65 kg/m2 Body Surface Area Calculated 1.91 m2 :31 Pulse 60 /min Comments: Pattern: Regular Respiration Rate 20 /min Comments: Pattern: Unlabored BP Systolic 118 mm[Hg] Comments: Patient Position: Sitting; Cuff Location: Left Arm; Cuff Size: Standard BP Diastolic 62 mm[Hg] Comments: Patient Position: Sitting; Cuff Location: Left Arm; Cuff Size: Standard Weight 179.375 lb Height 65 in Body Mass Index Calculated 29.85 kg/m2 Body Surface Area Calculated 1.89 m2 :50 Temperature 97 f Comments: Method: Oral Pulse 81 /min Comments: Pattern: Regular Respiration Rate 14 /min Comments: Pattern: Unlabored BP Systolic 118 mm[Hg] Comments: Patient Position: Sitting; Cuff Location: Left Arm; Cuff Size: Large BP Diastolic 74 mm[Hg] Comments: Patient Position: Sitting; Cuff Location: Left Arm; Cuff Size: Large Weight 186.5 lb Height 65 in Body Mass Index Calculated 31.03 kg/m2 Body Surface Area Calculated 1.92 m2 :59 Temperature 99 f Comments: Method: Oral Pulse 60 /min Comments: Pattern: Regular Respiration Rate 20 /min Comments: Pattern: Unlabored BP Systolic 122 mm[Hg] Comments: Patient Position: Sitting; Cuff Location: Left Arm; Cuff Size: Large BP Diastolic 78 mm[Hg] Comments: Patient Position: Sitting; Cuff Location: Left Arm; Cuff Size: Large Weight 187.25 lb Height 65 in Body Mass Index Calculated 31.16 kg/m2 Body Surface Area Calculated 1.92 m2 :45 Pulse 62 /min Comments: Pattern: Regular Respiration Rate 16 /min Comments: Pattern: Unlabored BP Systolic 140 mm[Hg] Comments: Patient Position: Sitting; Cuff Location: Left Arm; Cuff Size: Standard BP Diastolic 80 mm[Hg] Comments: Patient Position: Sitting; Cuff Location: Left Arm; Cuff Size: Standard Weight 186.0625 lb Height 65 in Body Mass Index Calculated 30.96 kg/m2 Body Surface Area Calculated 1.92 m2 :14 Pulse 68 /min Comments: Pattern: Regular Respiration Rate 20 /min Comments: Pattern: Unlabored BP Systolic 122 mm[Hg] Comments: Patient Position: Sitting; Cuff Location: Left Arm; Cuff Size: Standard BP Diastolic 82 mm[Hg] Comments: Patient Position: Sitting; Cuff Location: Left Arm; Cuff Size: Standard Weight 187.1875 lb Height 65 in Body Mass Index Calculated 31.15 kg/m2 Body Surface Area Calculated 1.92 m2 :18 Pulse 64 /min Comments: Pattern: Regular Respiration Rate 20 /min Comments: Pattern: Unlabored BP Systolic 118 mm[Hg] Comments: Patient Position: Sitting; Cuff Location: Bilateral Arms; Cuff Size: Large BP Diastolic 76 mm[Hg] Comments: Patient Position: Sitting; Cuff Location: Bilateral Arms; Cuff Size: Large Weight 188.25 lb Height 65 in Body Mass Index Calculated 31.33 kg/m2 Body Surface Area Calculated 1.93 m2 :20 Pulse 60 /min Comments: Pattern: Regular Respiration Rate 20 /min Comments: Pattern: Unlabored BP Systolic 122 mm[Hg] Comments: Patient Position: Sitting; Cuff Location: Left Arm; Cuff Size: Large BP Diastolic 70 mm[Hg] Comments: Patient Position: Sitting; Cuff Location: Left Arm; Cuff Size: Large Weight 184 lb Height 65 in Body Mass Index Calculated 30.62 kg/m2 Body Surface Area Calculated 1.91 m2 :08 Pulse 72 /min Comments: Pattern: Regular Respiration Rate 20 /min Comments: Pattern: Unlabored BP Systolic 128 mm[Hg] Comments: Patient Position: Sitting; Cuff Location: Left Arm; Cuff Size: Large BP Diastolic 70 mm[Hg] Comments: Patient Position: Sitting; Cuff Location: Left Arm; Cuff Size: Large Weight 191.25 lb Height 65 in Body Mass Index Calculated 31.83 kg/m2 Body Surface Area Calculated 1.94 m2 :22 Temperature 100.6 f Comments: Method: Oral Pulse 80 /min Comments: Pattern: Regular Respiration Rate 20 /min Comments: Pattern: Unlabored BP Systolic 118 mm[Hg] Comments: Patient Position: Sitting; Cuff Location: Left Arm; Cuff Size: Large BP Diastolic 78 mm[Hg] Comments: Patient Position: Sitting; Cuff Location: Left Arm; Cuff Size: Large Weight 191.5 lb Height 0 in Head Circumference 0.00 cm :10 Temperature 97.8 f Comments: Method: Oral Pulse 78 /min Comments: Pattern: Regular Respiration Rate 18 /min Comments: Pattern: Unlabored BP Systolic 128 mm[Hg] Comments: Patient Position: Sitting; Cuff Location: Left Arm; Cuff Size: Standard BP Diastolic 74 mm[Hg] Comments: Patient Position: Sitting; Cuff Location: Left Arm; Cuff Size: Standard Weight 191.5 lb Height 0 in Head Circumference 0.00 cm :43 Temperature 97.2 f Comments: Method: Oral Pulse 74 /min Comments: Pattern: Regular Respiration Rate 20 /min Comments: Pattern: Unlabored BP Systolic 118 mm[Hg] Comments: Patient Position: Sitting; Cuff Location: Left Arm; Cuff Size: Large BP Diastolic 76 mm[Hg] Comments: Patient Position: Sitting; Cuff Location: Left Arm; Cuff Size: Large Weight 189 lb Height 65 in Body Mass Index Calculated 31.45 kg/m2 Body Surface Area Calculated 1.93 m2 Head Circumference 0.00 cm :24 Pulse 84 /min Comments: Pattern: Regular Respiration Rate 16 /min Comments: Pattern: Unlabored BP Systolic 126 mm[Hg] Comments: Patient Position: Sitting; Cuff Location: Left Arm; Cuff Size: Large BP Diastolic 80 mm[Hg] Comments: Patient Position: Sitting; Cuff Location: Left Arm; Cuff Size: Large Weight 0 lb Height 0 in Head Circumference 0.00 cm :32 Pulse 88 /min Comments: Pattern: Regular Respiration Rate 16 /min Comments: Pattern: Unlabored BP Systolic 130 mm[Hg] Comments: Patient Position: Supine; Cuff Location: Left Arm; Cuff Size: Standard BP Diastolic 78 mm[Hg] Comments: Patient Position: Supine; Cuff Location: Left Arm; Cuff Size: Standard Weight 189 lb Height 65 in Body Mass Index Calculated 31.45 kg/m2 Body Surface Area Calculated 1.93 m2 Head Circumference 0.00 cm :57 Pulse 84 /min Comments: Pattern: Regular Respiration Rate 16 /min Comments: Pattern: Unlabored BP Systolic 120 mm[Hg] Comments: Patient Position: Sitting; Cuff Location: Left Arm; Cuff Size: Standard BP Diastolic 78 mm[Hg] Comments: Patient Position: Sitting; Cuff Location: Left Arm; Cuff Size: Standard Weight 189 lb Height 0 in Head Circumference 0.00 cm :28 Temperature 97.7 f Comments: Method: Oral Pulse 80 /min Comments: Pattern: Regular Respiration Rate 16 /min Comments: Pattern: Unlabored BP Systolic 102 mm[Hg] Comments: Patient Position: Supine; Cuff Location: Left Arm; Cuff Size: Standard BP Diastolic 64 mm[Hg] Comments: Patient Position: Supine; Cuff Location: Left Arm; Cuff Size: Standard Weight 189 lb Height 65 in Body Mass Index Calculated 31.45 kg/m2 Body Surface Area Calculated 1.93 m2 Head Circumference 0.00 cm :41 Pulse 88 /min Comments: Pattern: Regular Respiration Rate 18 /min Comments: Pattern: Unlabored BP Systolic 120 mm[Hg] Comments: Patient Position: Sitting; Cuff Location: Left Arm; Cuff Size: Large BP Diastolic 78 mm[Hg] Comments: Patient Position: Sitting; Cuff Location: Left Arm; Cuff Size: Large Weight 188.4375 lb Height 67 in Body Mass Index Calculated 29.51 kg/m2 Body Surface Area Calculated 1.97 m2 Head Circumference 0.00 cm :54 Pulse 80 /min Comments: Pattern: Regular Respiration Rate 20 /min Comments: Pattern: Unlabored BP Systolic 122 mm[Hg] Comments: Patient Position: Sitting; Cuff Location: Left Arm; Cuff Size: Large BP Diastolic 78 mm[Hg] Comments: Patient Position: Sitting; Cuff Location: Left Arm; Cuff Size: Large Weight 191.4375 lb Height 67 in Body Mass Index Calculated 29.98 kg/m2 Body Surface Area Calculated 1.98 m2 Head Circumference 0.00 cm :57 Pulse 80 /min Comments: Pattern: Regular Respiration Rate 20 /min Comments: Pattern: Unlabored BP Systolic 138 mm[Hg] Comments: Patient Position: Sitting; Cuff Location: Left Arm; Cuff Size: Standard BP Diastolic 80 mm[Hg] Comments: Patient Position: Sitting; Cuff Location: Left Arm; Cuff Size: Standard Weight 185.5625 lb Height 67 in Body Mass Index Calculated 29.06 kg/m2 Body Surface Area Calculated 1.96 m2 Head Circumference 0.00 cm :31 Temperature 98.5 f Comments: Method: Oral Pulse 72 /min Comments: Pattern: Regular Respiration Rate 20 /min Comments: Pattern: Unlabored BP Systolic 122 mm[Hg] Comments: Patient Position: Sitting; Cuff Location: Left Arm; Cuff Size: Standard BP Diastolic 64 mm[Hg] Comments: Patient Position: Sitting; Cuff Location: Left Arm; Cuff Size: Standard Weight 185.5625 lb Height 67 in Body Mass Index Calculated 29.06 kg/m2 Body Surface Area Calculated 1.96 m2 Head Circumference 0.00 cm :29 Temperature 97.7 f Comments: Method: Oral Pulse 88 /min Comments: Pattern: Regular Respiration Rate 18 /min Comments: Pattern: Unlabored BP Systolic 116 mm[Hg] Comments: Patient Position: Sitting; Cuff Location: Right Arm; Cuff Size: Large BP Diastolic 70 mm[Hg] Comments: Patient Position: Sitting; Cuff Location: Right Arm; Cuff Size: Large Weight 185.5625 lb Height 67 in Body Mass Index Calculated 29.06 kg/m2 Body Surface Area Calculated 1.96 m2 Head Circumference 0.00 cm :23 Pulse 88 /min Comments: Pattern: Regular Respiration Rate 20 /min Comments: Pattern: Unlabored BP Systolic 124 mm[Hg] Comments: Patient Position: Sitting; Cuff Location: Left Arm; Cuff Size: Standard BP Diastolic 62 mm[Hg] Comments: Patient Position: Sitting; Cuff Location: Left Arm; Cuff Size: Standard Weight 185.5625 lb Height 67 in Body Mass Index Calculated 29.06 kg/m2 Body Surface Area Calculated 1.96 m2 Head Circumference 0.00 cm :09 Pulse 80 /min Comments: Pattern: Regular Respiration Rate 20 /min Comments: Pattern: Unlabored BP Systolic 116 mm[Hg] Comments: Patient Position: Sitting; Cuff Location: Right Arm; Cuff Size: Standard BP Diastolic 62 mm[Hg] Comments: Patient Position: Sitting; Cuff Location: Right Arm; Cuff Size: Standard Weight 184.25 lb Height 67 in Body Mass Index Calculated 28.86 kg/m2 Body Surface Area Calculated 1.95 m2 Head Circumference 0.00 cm :46 Weight 182.375 lb Height 67 in Body Mass Index Calculated 28.56 kg/m2 Body Surface Area Calculated 1.94 m2 Head Circumference 0.00 cm :17 Pulse 80 /min Comments: Pattern: Regular Respiration Rate 18 /min Comments: Pattern: Unlabored BP Systolic 120 mm[Hg] Comments: Patient Position: Sitting; Cuff Location: Left Arm; Cuff Size: Standard BP Diastolic 68 mm[Hg] Comments: Patient Position: Sitting; Cuff Location: Left Arm; Cuff Size: Standard Weight 0 lb Height 0 in Head Circumference 0.00 cm :31 Pulse 88 /min Comments: Pattern: Regular Respiration Rate 16 /min Comments: Pattern: Unlabored BP Systolic 128 mm[Hg] Comments: Patient Position: Sitting; Cuff Location: Left Arm; Cuff Size: Standard BP Diastolic 84 mm[Hg] Comments: Patient Position: Sitting; Cuff Location: Left Arm; Cuff Size: Standard Weight 188.5 lb Height 67 in Body Mass Index Calculated 29.52 kg/m2 Body Surface Area Calculated 1.97 m2 Head Circumference 0.00 cm :17 Temperature 98.2 f Comments: Method: Oral Pulse 84 /min Comments: Pattern: Regular Respiration Rate 20 /min Comments: Pattern: Unlabored BP Systolic 144 mm[Hg] Comments: Patient Position: Sitting; Cuff Location: Left Arm; Cuff Size: Standard BP Diastolic 90 mm[Hg] Comments: Patient Position: Sitting; Cuff Location: Left Arm; Cuff Size: Standard Weight 191.125 lb Height 67 in Body Mass Index Calculated 29.93 kg/m2 Body Surface Area Calculated 1.98 m2 Head Circumference 0.00 cm : Temperature 98.2 f Comments: Method: Oral Pulse 84 /min Comments: Pattern: Regular Respiration Rate 20 /min Comments: Pattern: Unlabored BP Systolic 124 mm[Hg] Comments: Patient Position: Sitting; Cuff Location: Left Arm; Cuff Size: Standard BP Diastolic 72 mm[Hg] Comments: Patient Position: Sitting; Cuff Location: Left Arm; Cuff Size: Standard Weight 195.1875 lb Height 67 in Body Mass Index Calculated 30.57 kg/m2 Body Surface Area Calculated 2 m2 Head Circumference 0.00 cm :19 Pulse 76 /min Comments: Pattern: Regular Respiration Rate 16 /min Comments: Pattern: Unlabored BP Systolic 136 mm[Hg] Comments: Patient Position: Sitting; Cuff Location: Left Arm; Cuff Size: Standard BP Diastolic 80 mm[Hg] Comments: Patient Position: Sitting; Cuff Location: Left Arm; Cuff Size: Standard Weight 193.3125 lb Height 0 in Head Circumference 0.00 cm :10 Temperature 99.2 f Comments: Method: Oral Pulse 80 /min Comments: Pattern: Regular Respiration Rate 17 /min Comments: Pattern: Unlabored BP Systolic 124 mm[Hg] Comments: Patient Position: Sitting; Cuff Location: Left Arm; Cuff Size: Standard BP Diastolic 78 mm[Hg] Comments: Patient Position: Sitting; Cuff Location: Left Arm; Cuff Size: Standard Weight 196 lb Height 67 in Body Mass Index Calculated 30.7 kg/m2 Body Surface Area Calculated 2 m2 Head Circumference 0.00 cm :23 Temperature 98.2 f Comments: Method: Undefined Pulse 78 /min Comments: Pattern: Regular Respiration Rate 16 /min Comments: Pattern: Undefined BP Systolic 130 mm[Hg] Comments: Patient Position: Undefined; Cuff Location: Undefined; Cuff Size: Undefined BP Diastolic 80 mm[Hg] Comments: Patient Position: Undefined; Cuff Location: Undefined; Cuff Size: Undefined Weight 0 lb Height 0 in Head Circumference 0.00 cm :39 Temperature 98.4 f Comments: Method: Oral Pulse 62 /min Comments: Pattern: Regular Respiration Rate 16 /min Comments: Pattern: Unlabored BP Systolic 136 mm[Hg] Comments: Patient Position: Sitting; Cuff Location: Left Arm; Cuff Size: Standard BP Diastolic 88 mm[Hg] Comments: Patient Position: Sitting; Cuff Location: Left Arm; Cuff Size: Standard Weight 196 lb Height 67 in Body Mass Index Calculated 30.7 kg/m2 Body Surface Area Calculated 2 m2 Head Circumference 0.00 cm :10 Temperature 97.9 f Comments: Method: Undefined Pulse 68 /min Comments: Pattern: Regular Respiration Rate 16 /min Comments: Pattern: Undefined BP Systolic 148 mm[Hg] Comments: Patient Position: Sitting; Cuff Location: Left Arm; Cuff Size: Large BP Diastolic 80 mm[Hg] Comments: Patient Position: Sitting; Cuff Location: Left Arm; Cuff Size: Large Weight 0 lb Height 0 in Head Circumference 0.00 cm :13 Temperature 97.7 f Comments: Method: Undefined Pulse 68 /min Comments: Pattern: Regular Respiration Rate 16 /min Comments: Pattern: Undefined BP Systolic 156 mm[Hg] Comments: Patient Position: Sitting; Cuff Location: Left Arm; Cuff Size: Standard BP Diastolic 82 mm[Hg] Comments: Patient Position: Sitting; Cuff Location: Left Arm; Cuff Size: Standard Weight 196 lb Height 67 in Body Mass Index Calculated 30.7 kg/m2 Body Surface Area Calculated 2 m2 Head Circumference 0.00 cm Results Date Description Value Details :56 HgA1C , Office (46886) HgA1C , Office 6.7 % (Normal) Range: 4.6 - 7.1 :56 Blood Glucose , Office (28431) Blood Glucose , Office 150 (Normal) :42 HgA1C , Office (10573) HgA1C , Office 6.2 % (Normal) Range: 4.6 - 7.1 :19 HgA1C , Office (63031) HgA1C , Office 7.1 % (Normal) Range: 4.6 - 7.1 :19 Blood Glucose , Office (21030) Blood Glucose , Office 89 (Normal) :25 HgA1C , Office (42828) HgA1C , Office 6.9 % (Normal) Range: 4.6 - 7.1 :25 Blood Glucose , Office (27570) Blood Glucose , Office 112 (Normal) :14 HgA1C , Office (88246) HgA1C , Office 6.5 % (Normal) Range: 4.6 - 7.1 :14 Blood Glucose , Office (23787) Blood Glucose , Office 159 (Normal) :48 HgA1C , Office (10671) HgA1C , Office 6.4 % (Normal) Range: 4.6 - 7.1 :48 Blood Glucose , Office (99938) Blood Glucose , Office 91 (Normal) :39 Microscopic Examination Comments: PATIENT WAS FASTINGPERFORMED BY: [facility] Dcrivk9960 [address] RoadDublin [place] [id number] Bacteria Few (Normal) Mucus Threads Present (Normal) Epithelial Cells (non renal) 0-10 {/hpf} (Normal) Range: 0 - 10 RBC 0-2 {/hpf} (Normal) Range: 0 - 2 WBC 0-5 {/hpf} (Normal) Range: 0 - 5 :39 CALCIFIDIOL (34769) VIT D 25 Comments: PATIENT WAS FASTINGPERFORMED BY: [facility] Rmgylc4330 [address]Dublin [place] [id number] Vitamin D, 25-Hydroxy 37.4 ng/mL (Normal) Range: 30.0-100.0 Comments: Vitamin D deficiency has been defined by the Jackson ofMedicine and an Endocrine Society practice guideline as alevel of serum 25-OH vitamin D less than 20 ng/mL (1,2).The Endocrine Society went on to further define vitamin Dinsufficiency as a level between 21 and 29 ng/mL (2).1. IOM (Jackson of Medicine). 2010. Dietary reference intakes for calcium and D. [place]: The National Academies Press.2. Elizabeth MF, Charles NC, Silke BATISTA, et al. Evaluation, treatment, and prevention of vitamin D deficiency: an Endocrine Society clinical practice guideline. JCEM. 2010; 96(7):1911-30. :39 TSH (06857) Comments: PATIENT WAS FASTINGPERFORMED BY: CB [facility] Niiprh50[address]Dublin [place] [id number] TSH 1.340 {uIU/mL} (Normal) Range: 0.450-4.500 :39 URINALYSIS, W/ MICRO (45342) Comments: PATIENT WAS FASTINGPERFORMED BY: [facility] Yumhlb38[address] RoadDublin [place] [id number] Microscopic Examination See below: (Normal) Comments: Microscopic was indicated and was performed. Microscopic Examination MICRON (Normal) Comments: Microscopic follows if indicated. Nitrite, Urine Negative (Normal) Urobilinogen,Semi-Qn 0.2 mg/dL (Normal) Range: 0.2-1.0 Bilirubin Negative (Normal) Occult Blood Negative (Normal) Ketones Negative (Normal) Glucose Trace (Abnormal) Protein Negative (Normal) WBC Esterase Negative (Normal) Appearance Clear (Normal) Urine-Color Yellow (Normal) pH 6.0 (Normal) Range: 5.0-7.5 Specific [place] 1.021 (Normal) Range: 1.005-1.030 :39 MICROALBUMIN: CREATININE RATIO Comments: PATIENT WAS FASTINGPERFORMED BY: [facility] Tpibzd3255 [facility] [id number] ([id number]) AND (65709) Microalb/Creat Ratio <3.1 {mg/g_creat} (Normal) Range: 0.0-30.0 Microalbumin, Urine <3.0 ug/mL (Normal) Creatinine, Urine 97.1 mg/dL (Normal) :39 METABOLIC PANEL, COMPREHENSIVE Comments: PATIENT WAS FASTINGPERFORMED BY: [facility] Idhohc0027 [facility] [id number] (54131) ALT (SGPT) 40 [iU]/L (Abnormal) Range: 0-32 AST (SGOT) 33 [iU]/L (Normal) Range: 0-40 Alkaline Phosphatase, S 114 [iU]/L (Normal) Range: 39-117 Bilirubin, Total 0.3 mg/dL (Normal) Range: 0.0-1.2 A/G Ratio 1.7 (Normal) Range: 1.1-2.5 Globulin, Total 2.3 g/dL (Normal) Range: 1.5-4.5 Albumin, Serum 3.9 g/dL (Normal) Range: 3.6-4.8 Protein, Total, Serum 6.2 g/dL (Normal) Range: 6.0-8.5 Calcium, Serum 8.6 mg/dL (Abnormal) Range: 8.7-10.3 Carbon Dioxide, Total 23 mmol/L (Normal) Range: 18-29 Chloride, Serum 102 mmol/L (Normal) Range: 97-108 Potassium, Serum 4.1 mmol/L (Normal) Range: 3.5-5.2 Sodium, Serum 143 mmol/L (Normal) Range: 134-144 BUN/Creatinine Ratio 23 (Normal) Range: 11-26 eGFR If Africn Am 112 mL/min/1.73 (Normal) eGFR If NonAfricn Am 97 mL/min/1.73 (Normal) Creatinine, Serum 0.61 mg/dL (Normal) Range: 0.57-1.00 BUN 14 mg/dL (Normal) Range: 8-27 Glucose, Serum 151 mg/dL (Abnormal) Range: 65-99 :39 LIPID PANEL (02574) Comments: PATIENT WAS FASTINGPERFORMED BY: [employer] FloobitsAt[facility] [id number] LDL/HDL Ratio 1.9 {ratio_units} (Normal) Range: 0.0-3.2 Comments: LDL/HDL Ratio Men Women 1/2 Avg.Risk 1.0 1.5 Av g.Risk 3.6 3.2 2X Avg.Risk 6.2 5.0 3X Avg.Risk 8.0 6.1 LDL Cholesterol Calc 101 mg/dL (Abnormal) Range: 0-99 VLDL Cholesterol Josep 21 mg/dL (Normal) Range: 5-40 HDL Cholesterol 52 mg/dL (Normal) Comments: According to ATP-III Guidelines, HDL-C >59 mg/dL is considered anegative risk factor for CHD. Triglycerides 104 mg/dL (Normal) Range: 0-149 Cholesterol, Total 174 mg/dL (Normal) Range: 100-199 :39 CBC W/AUTO DIFF WBC Comments: PATIENT WAS FASTINGPERFORMED BY: [employer] GroupHackettstown Medical CenterNbusvx1957 [facility] [id number] Information: [id number] (62918) Immature Grans (Abs) 0.0 {x10E3/uL} (Normal) Range: 0.0-0.1 Immature Granulocytes 0 % (Normal) Baso (Absolute) 0.0 {x10E3/uL} (Normal) Range: 0.0-0.2 Eos (Absolute) 0.4 {x10E3/uL} (Normal) Range: 0.0-0.4 Monocytes(Absolute) 0.3 {x10E3/uL} (Normal) Range: 0.1-0.9 Lymphs (Absolute) 1.7 {x10E3/uL} (Normal) Range: 0.7-3.1 Neutrophils (Absolute) 2.2 {x10E3/uL} (Normal) Range: 1.4-7.0 Basos 0 % (Normal) Eos 8 % (Normal) Monocytes 6 % (Normal) Lymphs 38 % (Normal) Neutrophils 48 % (Normal) Platelets 144 {x10E3/uL} (Abnormal) Range: 150-379 RDW 14.0 % (Normal) Range: 12.3-15.4 MCHC 33.9 g/dL (Normal) Range: 31.5-35.7 MCH 31.5 pg (Normal) Range: 26.6-33.0 MCV 93 fL (Normal) Range: 79-97 Hematocrit 38.9 % (Normal) Range: 34.0-46.6 Hemoglobin 13.2 g/dL (Normal) Range: 11.1-15.9 RBC 4.19 {x10E6/uL} (Normal) Range: 3.77-5.28 WBC 4.5 {x10E3/uL} (Normal) Range: 3.4-10.8 :56 Blood Glucose , Office (64597) Blood Glucose , Office 130 (Normal) 72-Jrk-043941:41 HgA1C , Office (85450) HgA1C , Office 6.8 % (Normal) Range: 4.6 - 7.1 96-Afh-429780:41 Blood Glucose , Office (29713) Blood Glucose , Office 92 (Normal) 26-Vbg-519441:03 LIPID PANEL (17017) Comments: PATIENT WAS FASTINGPERFORMED BY: LabCoHackettstown Medical CenterOoxmpt5450 [facility] [id number] Information: [id number] LDL/HDL Ratio 2.4 {ratio_units} (Normal) Range: 0.0-3.2 Comments: LDL/HDL Ratio Men Women 1/2 Avg.Risk 1.0 1.5 Av g.Risk 3.6 3.2 2X Avg.Risk 6.2 5.0 3X Avg.Risk 8.0 6.1 LDL Cholesterol Calc 125 mg/dL (Abnormal) Range: 0-99 VLDL Cholesterol Josep 25 mg/dL (Normal) Range: 5-40 HDL Cholesterol 53 mg/dL (Normal) Comments: According to ATP-III Guidelines, HDL-C >59 mg/dL is considered anegative risk factor for CHD. Triglycerides 123 mg/dL (Normal) Range: 0-149 Cholesterol, Total 203 mg/dL (Abnormal) Range: 100-199 35-Vwy-478752:03 CALCIFIDIOL (93341) VIT D 25 Comments: PATIENT WAS FASTINGPERFORMED BY: LabCoHackettstown Medical CenterYfnvvp0334 [facility] [id number] Vitamin D, 25-Hydroxy 26.2 ng/mL (Abnormal) Range: 30.0-100.0 Comments: Vitamin D deficiency has been defined by the Jackson ofThe [facility]cine and an Endocrine Society practice guideline as alevel of serum 25-OH vitamin D less than 20 ng/mL (1,2).The Endocrine Society went on to further define vitamin Dinsufficiency as a level between 21 and 29 ng/mL (2).1. IOM (Jackson of Medicine). 2010. Dietary reference intakes for calcium and D. [place]: The National Academies Press.2. Elizabeth MF, Charles NC, Silke BATISTA, et al. Evaluation, treatment, and prevention of vitamin D deficiency: an Endocrine Society clinical practice guideline. JCEM. 2010; 96(7):1911-30. :11 Blood Glucose , Office (74089) Blood Glucose , Office 118 (Normal) :10 HgA1C , Office (26410) HgA1C , Office 6.4 % (Normal) Range: 4.6 - 7.1 :02 Blood Glucose , Office (20536) Blood Glucose , Office 103 (Normal) :02 HgA1C , Office (73404) HgA1C , Office 6.7 % (Normal) Range: 4.6 - 7.1 :25 HgA1C , Office (75703) HgA1C , Office 6.2 % (Normal) Range: 4.6 - 7.1 :25 Blood Glucose , Office (67533) Blood Glucose , Office 135 (Normal) :27 Blood Glucose , Office (61114) Blood Glucose , Office 73 (Normal) :27 HgA1C , Office (26342) HgA1C , Office 5.9 % (Normal) Range: 4.6 - 7.1 :46 HgA1C , Office (86595) HgA1C , Office 5.8 % (Normal) Range: 4.6 - 7.1 :46 Blood Glucose , Office (22333) Blood Glucose , Office 118 (Normal) :58 HgA1C , Office (07862) HgA1C , Office 5.9 % (Normal) Range: 4.6 - 7.1 :58 Blood Glucose , Office (96587) Blood Glucose , Office 75 (Normal) :58 HgA1C , Office (33933) HgA1C , Office 5.6 % (Normal) Range: 4.6 - 7.1 :58 Blood Glucose , Office (90700) Blood Glucose , Office 99 (Normal) :06 BMP GAP 10 (Normal) Range: 5-15 CO2 30.0 mmol/L (Normal) Range: 21.0-32.0 CL 104 mmol/L (Normal) Range: 98-107 K 3.9 mmol/L (Normal) Range: 3.5-5.1 NA 144 mmol/L (Normal) Range: 136-145 CA 9.4 mg/dL (Normal) Range: 8.5-10.1 BC 18.6 {RATIO} (Normal) Range: 10-20 GFRAA 110 mL/min (Normal) GFR 91 mL/min (Normal) CREAT 0.7 mg/dL (Normal) Range: 0.6-1.0 BUN 13 mg/dL (Normal) Range: 7-18 GLU 100 mg/dL (Normal) Range: 70-110 77-Dkw-381827:06 LIPID VLDL 20 mg/dL (Normal) Range: 5-40 HDL 49 mg/dL (Normal) Comments: Reference RangeHDL <40 mg/dL Low HDL CholesterolHDL >or= 60 mg/dL High HDL Cholesterol LDL 138 mg/dL (Abnormal) Range: 0-130 TRIG 98 mg/dL (Normal) Range: 0-199 Comments: Serum Triglycerides Reference IntervalNormal <150 mg/dLBorderline high 150 - 199 mg/dLHigh 200 - 499 mg/ dLVery High > or = 500 mg/dL CHOL 207 mg/dL (Abnormal) Comments: <200 mg/dL Uylwdikpj367-640 mg/dL Borderline>240 mg/dL High Risk 18-Pkp-829119:06 MIACRE MIALB 10.6 mg/L (Normal) tMICROCREAT 8.1 {mg/g_CRE} (Normal) CREU 130.8 mg/dL (Normal) 71-Sla-578468:06 TSH 1.00 {uIU/mL} (Normal) Range: 0.358-3.74 23-Eex-573942:06 VITD 50.4 mg/mL (Normal) Comments: Vitamin D 25(OH) Status RangeDeficiency <20 ng/mL (50nmol/L)Insuffciency 20 - 30 ng/mL (50 - 75 nmol/L)Sufficiency 30 - 100 ng/mL (75 - 250 nmol/L)Toxicity >100 ng/mL (>250 nmol/L) 5-Gxo-684094:26 URINE KASHIF CULTURE-IDENTIFICATN Comments: PATIENT NOT FASTINGPERFORMED BY: [facility] Tsaukp1701 [facility] [id number] Information: [id number] (54624) Result 1 BETAGB (Abnormal) Comments: Beta hemolytic Streptococcus, group B200 Colonies/mL .Penicillin and ampicillin are drugs of choice for treatment ofbeta-hemolytic streptococcal infe ctions. Susceptibility testing ofpenicillins and other beta-lactam agents approved by the FDA fortreatment of beta-hemolytic streptococcal infections need not beperformed routinely because nonsusceptibl e isolates are extremelyrare in any beta-hemolytic streptococcus and have not been reportedfor Streptococcus pyogenes (group A). (CLSI 2011) Urine Final report (Abnormal) Culture,Comprehensive 6-Hif-340886:07 Urinalysis, Office (24035) UA - LEUKOCYTE ESTERASE Small (Normal) UA - NITRITE Negative (Normal) URINE UROBILINGN ALEX TIMED Normal mg/dL (Normal) UA - PROTEIN Negative mg/dL (Normal) UA - PH 5 (Abnormal) UA - BLOOD Negative (Normal) UA - SPECIFIC GRAVITY 1.010 (Normal) UA - KETONES Negative mg/dL (Normal) UA - BILIRUBIN Negative (Normal) UA - GLUCOSE Negative (Normal) :06 HgA1C , Office (49867) HgA1C , Office 7.0 % (Normal) Range: 4.6 - 7.1 :06 Blood Glucose , Office (95911) Blood Glucose , Office 82 (Normal) :38 HgA1C , Office (60366) HgA1C , Office 6.4 % (Normal) Range: 4.6 - 7.1 :38 Blood Glucose , Office (96018) Blood Glucose , Office 106 (Normal) 19-Rrk-015069:47 CBCD ANC 2.3 {X10_3/uL} (Normal) Range: 2.0-7.7 IG% 0.200 % (Normal) Range: 0.0-0.9 Comments: IG% - Immature Granulocytes (promyelocytes, myelocytes andmetamyelocytes) > 1% indicates that a LEFT SHIFT is Present. B% 0.2 % (Normal) Range: 0-1 E% 4.4 % (Normal) Range: 0-5 M% 8.5 % (Normal) Range: 0-10 L% 34.4 % (Normal) Range: 19-41 N% 52.3 % (Normal) Range: 47-70 MPV 9.3 fL (Normal) Range: 6.2-12.0 PLT 169 K/mm3 (Normal) Range: 150-450 RDWSD 43.7 fL (Normal) Range: 35.1-43.9 RDWCV 12.9 % (Normal) Range: 11.6-14.6 MCHC 34.3 {g/gl} (Normal) Range: 32-36 MCH 32.3 pg (Abnormal) Range: 27.0-32.0 HCT 38.2 % (Normal) Range: 37-47 MCV 94.1 fL (Normal) Range: 81-99 HGB 13.1 g/dL (Normal) Range: 12.0-15.0 RBC 4.06 {M/mm3} (Abnormal) Range: 4.2-5.4 WBC 4.4 K/mm3 (Normal) Range: 4.4-11.0 13-Ttj-783481:47 CMP GAP 6 (Normal) Range: 5-15 CO2 28.0 mmol/L (Normal) Range: 21.0-32.0 CL 106 mmol/L (Normal) Range: 98-107 K 3.9 mmol/L (Normal) Range: 3.5-5.1 NA 140 mmol/L (Normal) Range: 136-145 BIT 0.40 mg/dL (Normal) Range: 0.00-1.00 ALT 78 U/L (Normal) Range: 12-78 ALK 122 U/L (Normal) Range: 50-136 AST 41 U/L (Abnormal) Range: 15-37 CA 8.8 mg/dL (Normal) Range: 8.5-10.1 AG 0.9 {RATIO} (Normal) Range: 0.9-2.4 GLOB 3.8 g/dL (Normal) Range: 2.7-4.2 ALB 3.6 g/dL (Normal) Range: 3.4-5.0 TPROT 7.4 g/dL (Normal) Range: 6.4-8.2 BC 23.3 {RATIO} (Abnormal) Range: 10-20 GFRAA 132 mL/min (Normal) GFR 109 mL/min (Normal) CREAT 0.6 mg/dL (Normal) Range: 0.6-1.0 BUN 14 mg/dL (Normal) Range: 7-18 GLU 127 mg/dL (Abnormal) Range: 70-110 Comments: Fasting Glucose result greater than or equal to 126 mg/dLsuggests DIABETES MELLITUS per A.D.A. criteria. 53-Jjr-645375:47 LIPID LDL 121 mg/dL (Normal) Range: 0-130 VLDL 22 mg/dL (Normal) Range: 5-40 HDL 55 mg/dL (Normal) Comments: Reference RangeHDL <40 mg/dL Low HDL CholesterolHDL >or= 60 mg/dL High HDL Cholesterol TRIG 109 mg/dL (Normal) Range: 0-199 Comments: Serum Triglycerides Reference IntervalNormal <150 mg/dLBorderline high 150 - 199 mg/dLHigh 200 - 499 mg/ dLVery High > or = 500 mg/dL CHOL 198 mg/dL (Normal) Comments: <200 mg/dL Eegqqojyg694-477 mg/dL Borderline>240 mg/dL High Risk :47 MIACRE tMICROCREAT 5.7 {mg/g_CRE} (Normal) MIALB 5.0 mg/L (Normal) CREU 87.7 mg/dL (Normal) :47 TSH 0.62 {uIU/mL} (Normal) Range: 0.358-3.74 49-Axe-014973:47 UAC Comments: How was Urine Obtained? CLEAN CATCH UMUC 0 SEEN {/hpf} (Normal) UBAC 0 SEEN {/hpf} (Normal) UEPIS 0-5 SEEN {/hpf} (Normal) Range: 5-10 URBC 0 SEEN {/hpf} (Normal) Range: 0-5 UWBC 0-5 SEEN {/hpf} (Normal) Range: 0-5 CHAUNCEY 100 /ul (Abnormal) KANA Negative (Normal) UOB Negative /ul (Normal) UROBU Normal mg/dL (Normal) BANDAR 6.0 (Normal) Range: 5.0 - 8.0 uPROTU Negative mg/dL (Normal) KETU Negative mg/dL (Normal) SGU 1.015 (Normal) Range: 1.002-1.030 BILIU Negative mg/dL (Normal) GLUR Normal mg/dL (Normal) UCLAR Clear (Normal) UCOL Yellow (Normal) :47 VITD 24.7 mg/mL (Normal) Comments: Vitamin D 25(OH) Status RangeDeficiency <20 ng/mL (50nmol/L)Insuffciency 20 - 30 ng/mL (50 - 75 nmol/L)Sufficiency 30 - 100 ng/mL (75 - 250 nmol/L)Toxicity >100 ng/mL (>250 nmol/L) :35 HgA1C , Office (28006) HgA1C , Office 6.1 % (Normal) Range: 4.6 - 7.1 :35 Blood Glucose , Office (12100) Blood Glucose , Office 102 (Normal) :24 HgA1C , Office (95436) HgA1C , Office 5.9 % (Normal) Range: 4.6 - 7.1 :24 Blood Glucose , Office (93869) Blood Glucose , Office 375 (Normal) 75-Svc-156718:13 CBCMD ANC 3.2 3/uL (Normal) Range: 2.0-7.7 IG% 0.50 % (Normal) Range: 0.0-0.9 Comments: IG% - Immature Granulocytes (promyelocytes, myelocytes,metamyelocytes) >1.0% indicates that a LEFT SHIFT ispresent. B% 0.7 % (Normal) Range: 0-1 E% 3.4 % (Normal) Range: 0-5 M% 8.2 % (Normal) Range: 0-10 L% 28.3 % (Normal) Range: 19-41 N% 58.9 % (Normal) Range: 47-70 MPV 9.9 fL (Normal) Range: 6.2-12.0 PLT 152 K/mm3 (Normal) Range: 150-450 RDWSD 45.7 fL (Abnormal) Range: 35.1-43.9 RDWCV 13.5 % (Normal) Range: 11.6-14.6 MCHC 34.7 g/dL (Normal) Range: 32-36 MCH 33.5 pg (Abnormal) Range: 27.0-32.0 MCV 96.7 fL (Normal) Range: 81-99 HCT 37.8 % (Normal) Range: 37-47 HGB 13.1 g/dL (Normal) Range: 12.0-15.0 RBC 3.91 {M/mm3} (Abnormal) Range: 4.2-5.4 WBC 5.5 {k/mm3} (Normal) Range: 4.4-11.0 :13 CMP GAP 6 (Normal) Range: 5-15 CO2 29.0 mmol/L (Normal) Range: 21.0-32.0 CL 104 mmol/L (Normal) Range: 98-107 K 4.0 mmol/L (Normal) Range: 3.5-5.1 NA 139 mmol/L (Normal) Range: 136-145 BIT 0.50 mg/dL (Normal) Range: 0.00-1.00 ALT 82 U/L (Abnormal) Range: 12-78 ALK 112 U/L (Normal) Range: 50-136 AST 57 U/L (Abnormal) Range: 15-37 CA 8.6 mg/dL (Normal) Range: 8.5-10.1 AG 1.1 {RATIO} (Normal) Range: 0.9-2.4 GLOB 3.5 g/dL (Normal) Range: 2.7-4.2 ALB 3.7 g/dL (Normal) Range: 3.4-5.0 TPROT 7.2 g/dL (Normal) Range: 6.4-8.2 BC 21.4 {RATIO} (Abnormal) Range: 10-20 GFRAA 110 mL/min (Normal) GFR 91 mL/min (Normal) CREAT 0.7 mg/dL (Normal) Range: 0.6-1.0 BUN 15 mg/dL (Normal) Range: 7-18 GLU 132 mg/dL (Abnormal) Range: 70-110 Comments: Fasting Glucose result greater than or equal to 126 mg/dLsuggests DIABETES MELLITUS per A.D.A. criteria. :13 LIPID VLDL 40 mg/dL (Normal) Range: 5-40 LDL 151 mg/dL (Abnormal) Range: 0-130 HDL 40 mg/dL (Normal) Comments: Reference RangeHDL <40 mg/dL Low HDL CholesterolHDL >or= 60 mg/dL High HDL Cholesterol TRIG 201 mg/dL (Abnormal) Comments: Serum Triglycerides Reference IntervalNormal <150 mg/dLBorderline high 150 - 199 mg/dLHigh 200 - 499 mg/ dLVery High > or = 500 mg/dL CHOL 231 mg/dL (Abnormal) Comments: <200 mg/dL Grysskjip940-882 mg/dL Borderline>240 mg/dL High Risk :13 MIACRE tMICROCREAT 7.0 {mg/g_CRE} (Normal) MIALB 9.2 mg/L (Normal) CREU 130.6 mg/dL (Normal) :13 TSH 0.64 {uIU/mL} (Normal) Range: 0.358-3.74 :13 UAC UMUC 0 SEEN {/hpf} (Normal) UBAC 0 SEEN {/hpf} (Normal) UEPIS 0-5 SEEN {/hpf} (Normal) Range: 5-10 URBC 0-5 SEEN {/hpf} (Normal) Range: 0-5 UWBC 0-5 SEEN {/hpf} (Normal) Range: 0-5 CHAUNCEY 500 /ul (Abnormal) UOB 10 /ul (Abnormal) KANA Negative (Normal) UROBU Normal mg/dL (Normal) uPROTU Negative mg/dL (Normal) BANDAR 5 (Normal) Range: 5.0 - 8.0 SGU 1.020 (Normal) Range: 1.002-1.030 KETU Negative mg/dL (Normal) BILIU Negative mg/dL (Normal) GLUR Normal mg/dL (Normal) UCLAR Clear (Normal) UCOL Yellow (Normal) 14-Zkx-296400:13 VITD 28.1 ng/mL (Normal) Comments: Vitamin D 25(OH) Status RangeDeficiency <20 ng/mL (50nmol/L)Insufficiency 20 - 30 ng/mL (50 - 75 nmol/L)Sufficiency 30 - 100 ng/mL (75 - 250 nm ol/L)Toxicity >100 ng/mL (250 nmol/L) :40 HgA1C , Office (30211) HgA1C , Office 7.1 % (Normal) Range: 4.6 - 7.1 :40 Blood Glucose , Office (46896) Blood Glucose , Office 123 (Normal) :05 Blood Glucose , Office (79967) Blood Glucose , Office 176 (Normal) :43 HEPATIC FUNCTION PANEL Comments: PATIENT NOT FASTINGPERFORMED BY: LabCoHackettstown [facility] CenterAmrsey8077 [facility] [id number] Information: [id number] (41975) ALT (SGPT) 146 [iU]/L (Abnormal) Range: 0-32 AST (SGOT) 101 [iU]/L (Abnormal) Range: 0-40 Alkaline Phosphatase, S 94 [iU]/L (Normal) Range: 25-150 Bilirubin, Direct 0.20 mg/dL (Normal) Range: 0.00-0.40 Albumin, Serum 4.5 g/dL (Normal) Range: 3.5-5.5 Bilirubin, Total 0.6 mg/dL (Normal) Range: 0.0-1.2 Protein, Total, Serum 7.1 g/dL (Normal) Range: 6.0-8.5 :14 Blood Glucose , Office ([id number]) Blood Glucose , Office 193 (Normal) :11 MICROALBUMIN: CREATININE RATIO Comments: PATIENT WAS FASTINGPERFORMED BY: [email or web address] [id number] [facility] [id number] ([id number]) AND ([id number]) Microalb/Creat Ratio 3.8 {mg/g_creat} (Normal) Range: 0.0-30.0 Microalbumin, Urine 6.3 ug/mL (Normal) Range: 0.0-17.0 Creatinine, Urine 167.6 mg/dL (Normal) Range: 15.0-278.0 :11 METABOLIC PANEL, COMPREHENSIVE Comments: PATIENT WAS FASTINGPERFORMED BY: [email or web address] [id number] [facility] [id number] ([id number]) ALT (SGPT) 59 [iU]/L (Abnormal) Range: 0-32 AST (SGOT) 37 [iU]/L (Normal) Range: 0-40 Alkaline Phosphatase, S 101 [iU]/L (Normal) Range: 25-150 Bilirubin, Total 0.3 mg/dL (Normal) Range: 0.0-1.2 A/G Ratio 1.6 (Normal) Range: 1.1-2.5 Globulin, Total 2.7 g/dL (Normal) Range: 1.5-4.5 Albumin, Serum 4.4 g/dL (Normal) Range: 3.5-5.5 Protein, Total, Serum 7.1 g/dL (Normal) Range: 6.0-8.5 Calcium, Serum 9.7 mg/dL (Normal) Range: 8.7-10.2 Carbon Dioxide, Total 19 mmol/L (Abnormal) Range: 20-32 Chloride, Serum 106 mmol/L (Normal) Range: 97-108 Potassium, Serum 4.4 mmol/L (Normal) Range: 3.5-5.2 Sodium, Serum 145 mmol/L (Abnormal) Range: 134-144 BUN/Creatinine Ratio 21 (Normal) Range: 9-23 eGFR If Africn Am 105 mL/min/1.73 (Normal) eGFR If NonAfricn Am 91 mL/min/1.73 (Normal) Creatinine, Serum 0.73 mg/dL (Normal) Range: 0.57-1.00 BUN 15 mg/dL (Normal) Range: 6-24 Glucose, Serum 177 mg/dL (Abnormal) Range: 65-99 [id number] CBC WITH MANUAL DIFF Comments: PATIENT WAS FASTINGPERFORMED BY: [id number] [id number] Information: [id number] (92705) Immature Grans (Abs) 0.0 {x10E3/uL} (Normal) Range: 0.0-0.1 Immature Granulocytes 0 % (Normal) Range: 0-2 Baso (Absolute) 0.0 {x10E3/uL} (Normal) Range: 0.0-0.2 Eos (Absolute) 0.2 {x10E3/uL} (Normal) Range: 0.0-0.4 Monocytes(Absolute) 0.4 {x10E3/uL} (Normal) Range: 0.1-1.0 Lymphs (Absolute) 1.1 {x10E3/uL} (Normal) Range: 0.7-4.5 Neutrophils (Absolute) 2.0 {x10E3/uL} (Normal) Range: 1.8-7.8 Basos 1 % (Normal) Range: 0-3 Eos 5 % (Normal) Range: 0-7 Monocytes 10 % (Normal) Range: 4-13 Lymphs 29 % (Normal) Range: 14-46 Neutrophils 55 % (Normal) Range: 40-74 Platelets 145 {x10E3/uL} (Normal) Range: 140-415 RDW 14.5 % (Normal) Range: 12.3-15.4 MCHC 34.0 g/dL (Normal) Range: 31.5-35.7 MCH 33.6 pg (Abnormal) Range: 26.6-33.0 MCV 99 fL (Abnormal) Range: 79-97 Hematocrit 36.5 % (Normal) Range: 34.0-46.6 Hemoglobin 12.4 g/dL (Normal) Range: 11.1-15.9 RBC 3.69 {x10E6/uL} (Abnormal) Range: 3.77-5.28 WBC 3.7 {x10E3/uL} (Abnormal) Range: 4.0-10.5 :11 LIPID PANEL (39313) Comments: PATIENT WAS FASTINGPERFORMED BY: [facility] [facility] [id number] LDL/HDL Ratio 2.9 {ratio_units} (Normal) Range: 0.0-3.2 LDL Cholesterol Calc 153 mg/dL (Abnormal) Range: 0-99 VLDL Cholesterol Josep 32 mg/dL (Normal) Range: 5-40 HDL Cholesterol 53 mg/dL (Normal) Comments: According to ATP-III Guidelines, HDL-C >59 mg/dL is considered anegative risk factor for CHD. Triglycerides 162 mg/dL (Abnormal) Range: 0-149 Cholesterol, Total 238 mg/dL (Abnormal) Range: 100-199 :11 Vitamin D Hydroxy (68260) Comments: PATIENT WAS FASTINGPERFORMED BY: [facility] [facility] [id number] Vitamin D, 25-Hydroxy 63.5 ng/mL (Normal) Range: 30.0-100.0 Comments: Vitamin D deficiency has been defined by the Jackson ofMedicine and an Endocrine Society practice guideline as alevel of serum 25-OH vitamin D less than 20 ng/mL (1,2).The Endocrine Society went on to further define vitamin Dinsufficiency as a level between 21 and 29 ng/mL (2).1. IOM (Jackson of Medicine). 2010. Dietary reference intakes for calcium and D. [place]: The National Academies Press.2. Elizabeth MF, Charles NC, Silke BATISTA, et al. Evaluation, treatment, and prevention of vitamin D deficiency: an Endocrine Society clinical practice guideline. JCEM. 2010; 96(7):1911-30. :10 HgA1C , Office (18292) HgA1C , Office 5.8 % (Normal) Range: 4.6 - 7.1 :10 Blood Glucose , Office (34194) Blood Glucose , Office 194 (Normal) Comments: fasting :15 HgA1C , Office (92825) HgA1C , Office 5.7 % (Normal) Range: 4.6 - 7.1 :15 Blood Glucose , Office (93081) Blood Glucose , Office 178 (Normal) :15 Vitamin D Hydroxy (61143) Comments: PATIENT NOT FASTINGPERFORMED BY: [facility] [facility] [id number] Information: [id number] Vitamin D, 25-Hydroxy 60.0 ng/mL (Normal) Range: 30.0-100.0 Comments: Vitamin D deficiency has been defined by the Jackson ofMedicine and an Endocrine Society practice guideline as alevel of serum 25-OH vitamin D less than 20 ng/mL (1,2).The Endocrine Society went on to further define vitamin Dinsufficiency as a level between 21 and 29 ng/mL (2).1. IOM (Jackson of Medicine). 2010. Dietary reference intakes for calcium and D. [place]: The National Academies Press.2. Elizabeth MF, Charles LUNDY, Silke BATISTA, et al. Evaluation, treatment, and prevention of vitamin D deficiency: an Endocrine Society clinical practice guideline. JCEM. 2010; 96(7):1911-30. :54 METABOLIC PANEL, Comments: PATIENT WAS FASTINGPERFORMED BY: [facility] [facility] [id number] Information: [id number] COMPREHENSIVE (68932) ALT (SGPT) 24 [iU]/L (Normal) Range: 0-40 AST (SGOT) 28 [iU]/L (Normal) Range: 0-40 Alkaline Phosphatase, S 128 [iU]/L (Normal) Range: 25-150 Bilirubin, Total 0.5 mg/dL (Normal) Range: 0.0-1.2 A/G Ratio 1.9 (Normal) Range: 1.1-2.5 Globulin, Total 2.4 g/dL (Normal) Range: 1.5-4.5 Albumin, Serum 4.5 g/dL (Normal) Range: 3.5-5.5 Protein, Total, Serum 6.9 g/dL (Normal) Range: 6.0-8.5 Calcium, Serum 9.5 mg/dL (Normal) Range: 8.7-10.2 Carbon Dioxide, Total 23 mmol/L (Normal) Range: 20-32 Chloride, Serum 105 mmol/L (Normal) Range: 97-108 Potassium, Serum 4.4 mmol/L (Normal) Range: 3.5-5.2 Sodium, Serum 142 mmol/L (Normal) Range: 134-144 BUN/Creatinine Ratio 23 (Normal) Range: 9-23 eGFR If Africn Am 116 mL/min/1.73 (Normal) eGFR If NonAfricn Am 101 mL/min/1.73 (Normal) Creatinine, Serum 0.60 mg/dL (Normal) Range: 0.57-1.00 BUN 14 mg/dL (Normal) Range: 6-24 Glucose, Serum 105 mg/dL (Abnormal) Range: 65-99 :54 LIPID PANEL (87160) Comments: PATIENT WAS FASTINGPERFORMED BY: [employer] [id number] LDL/HDL Ratio 2.5 {ratio_units} (Normal) Range: 0.0-3.2 LDL Cholesterol Calc 144 mg/dL (Abnormal) Range: 0-99 VLDL Cholesterol Josep 28 mg/dL (Normal) Range: 5-40 HDL Cholesterol 58 mg/dL (Normal) Comments: According to ATP-III Guidelines, HDL-C >59 mg/dL is considered anegative risk factor for CHD. Triglycerides 141 mg/dL (Normal) Range: 0-149 Cholesterol, Total 230 mg/dL (Abnormal) Range: 100-199 :54 Vitamin D Hydroxy (72584) Comments: PATIENT WAS FASTINGPERFORMED BY: [facility] [address]tlxpj[address] [facility] [id number] Vitamin D, 25-Hydroxy 28.0 ng/mL (Abnormal) Range: 30.0-100.0 Comments: Vitamin D deficiency has been defined by the Jackson ofMedicine and an Endocrine Society practice guideline as alevel of serum 25-OH vitamin D less than 20 ng/mL (1,2).The Endocrine Society went on to further define vitamin Dinsufficiency as a level between 21 and 29 ng/mL (2).1. IOM (Jackson of Medicine). 2010. Dietary reference intakes for calcium and D. [place]: The National Academies Press.2. Elizabeth MF, Charles NC, Silke BATISTA, et al. Evaluation, treatment, and prevention of vitamin D deficiency: an Endocrine Society clinical practice guideline. JCEM. 2010; 96(7):1911-30. [id number]:35 HgA1C , Office (31121) HgA1C , Office 5.6 % (Normal) Range: 4.6 - 7.1 22-[id number]-181636:35 Blood Glucose , Office (68293) Blood Glucose , Office 129 (Normal) 66-Kou-81623:45 CBC With Differential/Platelet Comments: Test(s) WBC; Platelets; Neutrophils (Absolute) called to YUNIER Jenkins on 11/29/2011 at 14:08 ESTPATIENT WAS FASTINGPERFORMED BY: [facility] [address]jxcg[address] [facility] [id number] Hematology Comments: Note: (Normal) Comments: Manual differential was performed. Baso (Absolute) 0.0 {x10E3/uL} (Normal) Range: 0.0-0.2 Eos (Absolute) 0.0 {x10E3/uL} (Normal) Range: 0.0-0.4 Monocytes(Absolute) 0.0 {x10E3/uL} (Abnormal) Range: 0.1-1.0 Lymphs (Absolute) 0.8 {x10E3/uL} (Normal) Range: 0.7-4.5 Neutrophils (Absolute) 0.3 {x10E3/uL} (Abnormal) Range: 1.8-7.8 Immature Cells Note (Normal) Basos 0 % (Normal) Range: 0-3 Eos 1 % (Normal) Range: 0-7 Monocytes 1 % (Abnormal) Range: 4-13 Lymphs 58 % (Abnormal) Range: 14-46 Neutrophils 19 % (Abnormal) Range: 40-74 Platelets 61 {x10E3/uL} (Abnormal) Range: 140-415 RDW 18.5 % (Abnormal) Range: 11.7-15.0 MCHC 34.3 g/dL (Normal) Range: 32.0-36.0 MCH 32.3 pg (Normal) Range: 27.0-34.0 MCV 94 fL (Normal) Range: 80-98 Hematocrit 28.0 % (Abnormal) Range: 34.0-44.0 Hemoglobin 9.6 g/dL (Abnormal) Range: 11.5-15.0 RBC 2.97 {x10E6/uL} (Abnormal) Range: 3.80-5.10 WBC 1.4 {x10E3/uL} (Abnormal) Range: 4.0-10.5 :45 Immature Cells Comments: Test(s) WBC; Platelets; Neutrophils (Absolute) called to YUNIER on 11/29/2011 at 14:08 ESTPATIENT WAS FASTINGPERFORMED BY: [email or web address] [id number] [facility] [id number] Blasts/blast like cells 21 % (Abnormal) Range: 0 - 0 :45 Lipid Panel With LDL/HDL Comments: Test(s) WBC; Platelets; Neutrophils (Absolute) called to YUNIER on 11/29/2011 at 14:08 ESTPATIENT WAS FASTINGPERFORMED BY: [email or web address] [id number] [facility] [id number] Ratio LDL/HDL Ratio 1.2 {ratio_units} (Normal) Range: 0.0-3.2 LDL Cholesterol Calc 52 mg/dL (Normal) Range: 0-99 VLDL Cholesterol Josep 22 mg/dL (Normal) Range: 5-40 HDL Cholesterol 43 mg/dL (Normal) Comments: According to ATP-III Guidelines, HDL-C >59 mg/dL is considered anegative risk factor for CHD. Cholesterol, Total 117 mg/dL (Normal) Range: 100-199 Triglycerides 109 mg/dL (Normal) Range: 0-149 :45 Path Review, Per Protocol Comments: Test(s) WBC; Platelets; Neutrophils (Absolute) called to YUNIER on 11/29/2011 at 14:08 ESTPATIENT WAS FASTINGPERFORMED BY: [email or web address] Medical CenterZtfgnu8[address] [facility] [id number] Comments/Recommendations Comment: (Normal) Comments: 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 Suggest bone marrowevaluation and flow cytometry and cytogenetics. Pathologist Comment: (Normal) Comments: This case was reviewed by Lila [place], M.D. PLTs Comment: (Normal) Comments: Thrombocytopenia.Few large platelets were observed. RBC Comment: (Normal) Comments: Decreased.Slight anisocytosis.Poikilocytosis.Rare nucleated RBC seen. WBC Comment: (Normal) Comments: Leukopenia. :54 HgA1C , Office (62689) HgA1C , Office 6.6 % (Normal) Range: 4.6 - 7.1 :54 Blood Glucose , Office (44150) Blood Glucose , 197 (Normal) Office Vitamin D, 23.4 ng/mL Comments: Test(s) WBC; Neutrophils (Absolute) called to Dr Wilson on 11/18/2011 at 05:44 ESTPATIENT NOT FASTINGPERFORMED BY: [email or web address] [id number] [facility] HospitalEcreboSt[facility] [id number] :05 25-Hydroxy (Abnormal) Range: 30.0-100.0 Comments: Vitamin D deficiency has been defined by the Jackson ofThe Jewish Hospitalcine and an Endocrine Society practice guideline as alevel of serum 25-OH vitamin D less than 20 ng/mL (1,2).The Endocrine Society went on to further define vitamin Dinsufficiency as a level between 21 and 29 ng/mL (2).1. IOM (Jackson of Medicine). 2010. Dietary reference intakes for calcium and D. [place]: The National Academies Press.2. lEizabeth MF, Charles LUNDY, Silke BATISTA, et al. Evaluation, treatment, and prevention of vitamin D deficiency: an Endocrine Society clinical practice guideline. JCEM. 2010; 96(7):1911-30. [id number]:05 BLD CNT, MANUAL CELL COUNT, Comments: Test(s) WBC; Neutrophils (Absolute) called to Dr Wilson on 11/18/2011 at 05:44 ESTPATIENT NOT FASTINGPERFORMED BY: [email or web address] Practice Management [employer] [facility] [id number] EACH (06269) Hematology Comments: Note: (Normal) Comments: Verified by microscopic examination. Immature Grans (Abs) 0.0 {x10E3/uL} (Normal) Range: 0.0-0.1 Immature Granulocytes 0 % (Normal) Range: 0-2 Baso (Absolute) 0.0 {x10E3/uL} (Normal) Range: 0.0-0.2 Eos (Absolute) 0.0 {x10E3/uL} (Normal) Range: 0.0-0.4 Monocytes(Absolute) 0.2 {x10E3/uL} (Normal) Range: 0.1-1.0 Lymphs (Absolute) 0.7 {x10E3/uL} (Normal) Range: 0.7-4.5 Neutrophils (Absolute) 0.2 {x10E3/uL} (Abnormal) Range: 1.8-7.8 Basos 1 % (Normal) Range: 0-3 Eos 1 % (Normal) Range: 0-7 Monocytes 16 % (Abnormal) Range: 4-13 Lymphs 61 % (Abnormal) Range: 14-46 Neutrophils 21 % (Abnormal) Range: 40-74 Platelets 104 {x10E3/uL} (Abnormal) Range: 140-415 RDW 17.2 % (Abnormal) Range: 11.7-15.0 MCHC 34.6 g/dL (Normal) Range: 32.0-36.0 MCH 31.6 pg (Normal) Range: 27.0-34.0 MCV 92 fL (Normal) Range: 80-98 Hematocrit 30.1 % (Abnormal) Range: 34.0-44.0 Hemoglobin 10.4 g/dL (Abnormal) Range: 11.5-15.0 RBC 3.29 {x10E6/uL} (Abnormal) Range: 3.80-5.10 WBC 1.2 {x10E3/uL} (Abnormal) Range: 4.0-10.5 [id number]-[id number]:05 EBV Panel (32018) Comments: Test(s) WBC; Neutrophils (Absolute) called to Dr Wilson on 11/18/2011 at 05:44 ESTPATIENT NOT FASTINGPERFORMED BY: [facility] [facility] [id number] Interpretation: SPRCS (Normal) Comments: EBV Interpretation Chart . Interpretation VCA-IgM EA-IgG VCA-IgG NA-ABS . Susceptible - - - - Acute Infection + +or- +or- - Convalescent Phase +or- +or- + + Chronic or Reactivated - + + +or- Old Infection - - +or- + + Antibody Present - Antibody Absent EBV Nuclear Antigen Ab, IgG >8.0 {AI} (Abnormal) Range: 0.0-0.8 Comments: Negative <0.9 Equivocal 0.9 - 1.0 Positive >1.0 EBV Ab VCA, IgG 3.2 {AI} (Abnormal) Range: 0.0-0.8 Comments: Negative <0.9 Equivocal 0.9 - 1.0 Positive >1.0 EBV Early Antigen Ab, IgG <0.2 {AI} (Normal) Range: 0.0-0.8 Comments: Negative <0.9 Equivocal 0.9 - 1.0 Positive >1.0 EBV Ab VCA, IgM 0.5 {AI} (Normal) Range: 0.0-0.8 Comments: Negative <0.9 Equivocal 0.9 - 1.0 Positive >1.0 [id number] CBCMD PATHR Reviewed (Normal) Comments: Leukopenia and neutropenia.Clinical correlation necessary.Ron Ramírez M.D. 11/16/11 AMENDED REPORT 11/16/11 1545 PATH REV previously reported as: Gabriella gorman Reason: Pathologist comment added STIP 1+ (Normal) POLY 1+ (Normal) PE ADEQUATE (Normal) NRBC 1 % (Normal) Range: 0-5 MON 3 % (Normal) Range: 0-10 LYMPH 70 % (Abnormal) Range: 19-41 PMN 27 % (Abnormal) Range: 47-70 MARTHA 100 (Normal) ANC 0.3 3/uL (Abnormal) Range: 2.0-7.7 PLT 161 K/mm3 (Normal) Range: 150-450 RDW 16.3 % (Abnormal) Range: 11.6-14.6 MCHC 35.1 g/dL (Normal) Range: 32-36 MCH 33.0 pg (Abnormal) Range: 27.0-32.0 MCV 94.0 fL (Normal) Range: 81-99 HCT 31.9 % (Abnormal) Range: 37-47 HGB 11.2 g/dL (Abnormal) Range: 12.0-16.0 RBC 3.40 {M/mm3} (Abnormal) Range: 4.2-5.4 WBC 1.2 K/mm3 (Abnormal) Range: 4.4-11.0 Comments: RESULTS CALLED TO DR FORBES 11/13/11 EILEEN OLSON.REPORT READ BACK BY SAME . :55 CMP GAP 6 (Normal) Range: 5-15 CO2 31.0 mmol/L (Normal) Range: 21.0-32.0 CL 103 mmol/L (Normal) Range: 98-107 K 4.1 mmol/L (Normal) Range: 3.5-5.1 NA 140 mmol/L (Normal) Range: 136-145 BIT 0.70 mg/dL (Normal) Range: 0.00-1.00 ALT 53 U/L (Normal) Range: 12-78 ALK 107 U/L (Normal) Range: 50-136 AST 36 U/L (Normal) Range: 15-37 CA 8.9 mg/dL (Normal) Range: 8.5-10.1 AG 1.2 {RATIO} (Normal) Range: 0.9-2.4 GLOB 3.3 g/dL (Normal) Range: 2.7-4.2 ALB 3.9 g/dL (Normal) Range: 3.4-5.0 TPROT 7.2 g/dL (Normal) Range: 6.4-8.2 BC 20.0 {RATIO} (Normal) Range: 10-20 GFRAA 110 mL/min (Normal) GFR 91 mL/min (Normal) CREAT 0.7 mg/dL (Normal) Range: 0.6-1.0 BUN 14 mg/dL (Normal) Range: 7-18 GLU 158 mg/dL (Abnormal) Range: 70-110 Comments: Fasting Glucose result greater than or equal to 126 mg/dL suggests DIABETES MELLITUS per A.D.A. criteria. :55 MIACRE tMICROCREAT 4.7 {mg/g_CRE} (Normal) MIALB 7.9 mg/L (Normal) CREU 166.4 mg/dL (Normal) :55 TSH 0.80 {uIU/mL} (Normal) Range: 0.358-3.74 :55 UA UMUC 1+ {/hpf} (Normal) UBAC 0 SEEN {/hpf} (Normal) UEPIS 5-10 SEEN {/hpf} (Normal) Range: 5-10 URBC 0 SEEN {/hpf} (Normal) Range: 0-5 UWBC 0-5 SEEN {/hpf} (Normal) Range: 0-5 CHAUNCEY NEGATIVE (Normal) UOB NEGATIVE (Normal) KANA NEGATIVE (Normal) UROBU 0.2 EU/dl (Normal) Range: 0.2 - 1.0 uPROTU NEGATIVE (Normal) BANDAR 6.5 (Normal) Range: 5.0-8.0 SGU 1.015 (Normal) Range: 1.002-1.030 KETU NEGATIVE mg/dL (Normal) BILIU NEGATIVE (Normal) GLUR NEGATIVE (Normal) UCLAR SL CLOUDY (Normal) UCOL YELLOW (Normal) 38-Ybs-12560:55 VITD 24.5 ng/mL (Abnormal) Range: 30.0-100.0 Comments: Vitamin D deficiency has been defined by the Jackson ofThe [facility] Hospitalcine and an Endocrine Society practice guideline as alevel of serum 25-OH vitamin D less than 20 ng/mL (1,2).The Endocrine Society went on to further define vitamin Dinsufficiency as a level between 21 and 29 ng/mL (2).1. IOM (Jackson of Medicine). 2010. Dietary reference intakes for calcium and D. [place]: The National Academies Press.2. Elizabeth MF, Charles NC, Silke BATISTA, et al. Evaluation, treatment, and prevention of vitamin D deficiency: an Endocrine Society clinical practice guideline. JCEM. 2010; 96(7): 1911-30. .Effective November 01, 2011, Vitamin D, 25 Hydroxy specimen requirements will change to serum only.Performed at: - Lab[address] [id number] Director: Lila Kingsley MD, Phone: [phone] :[phone] GLU 158 mg/dL (Abnormal) Comments: PATIENT NOT FASTING/DEMANDED TO BE DRAWN Range: 70-110 Comments: Fasting Glucose result greater than or equal to 126 mg/dL suggests DIABETES MELLITUS per A.D.A. criteria. :41 HGB A1C 6.6 % (Abnormal) Comments: PATIENT NOT FASTING/DEMANDED TO BE DRAWN Range: 4.2-6.3 :09 L/S SPINE,MIN 4 VIEWS Radiology Report See Note (Normal) Comments: PROCEDURE: X-RAY - LUMBAR SPINE REASON FOR EXAM: Female, 55 years old. The patient presents withchroniclow back pain. TECHNIQUE: Six views of the lumbar spine were obtained. COMPARISON: None FI NDINGS:Normal lumbar lordosis. There is no substantial scoliosis. Normal lumbar vertebrae. There is a moderate degree of disk space narrowing at the L4, L5, and L5,S1 level, with spondylosis. There's also evidence of facet jointosteoarthritis. The soft tissue structures are unremarkable. IMPRESSION:Degenerative changes of the spine, as detailed above. Dictated on 05/31/111617 by Gilberto Street MD rieleTranscribed on 06/01/111702 by ITS IMPORTSign by Mitch Street MD on 06/01/111702 Sign by: Mitch Street MD 62-Trf-248216:20 HgA1C , Office (41504) HgA1C , Office 6.7 % (Normal) Range: 4.6 - 7.1 93-Fkc-646731:20 Blood Glucose , Office (13606) Blood Glucose , Office 175 (Normal) 9-Ycj-785566:00 LIVER D BILI 0.11 mg/dL (Normal) Range: 0.00-0.30 T BILI 0.40 mg/dL (Normal) Range: 0.00-1.00 ALT 40 U/L (Normal) Range: 12-78 ALK P 89 U/L (Normal) Range: 50-136 AST 19 U/L (Normal) Range: 15-37 ALB 3.6 g/dL (Normal) Range: 3.4-5.0 T PROT 6.8 g/dL (Normal) Range: 6.4-8.2 :00 BMP GAP 9 (Normal) Range: 5-15 CO2 29.0 mmol/L (Normal) Range: 21.0-32.0 CL 103 mmol/L (Normal) Range: 98-107 K 4.3 mmol/L (Normal) Range: 3.5-5.1 NA 141 mmol/L (Normal) Range: 136-145 CA 9.3 mg/dL (Normal) Range: 8.5-10.1 BUN/CRE 21.4 {RATIO} (Abnormal) Range: 10-20 EST GFR - AA 112 mL/min (Normal) EST GFR 92 mL/min (Normal) CREAT,SERUM 0.7 mg/dL (Normal) Range: 0.6-1.0 BUN 15 mg/dL (Normal) Range: 7-18 GLU 184 mg/dL (Abnormal) Range: 70-110 Comments: Fasting Glucose result greater than or equal to 126 mg/dL suggests DIABETES MELLITUS per A.D.A. criteria. :22 HgA1C , Office (31184) HgA1C , Office 6.7 % (Normal) Range: 4.6 - 7.1 :22 Blood Glucose , Office (63806) Blood Glucose , Office 205 (Normal) :00 CHEST WITH CONTRAST Radiology Report See Note (Normal) Comments: CLINICAL:Female, 55 years old. Breast carcinoma, evaluate for malignancy. CT CHEST WITH CONTRAST TECHNIQUE:High resolution transaxial imaging was performed following intravenousadministration of 100 ml of Isovue 300 contrast material. COMPARISON:11/09/2007 chest x-ray. FINDINGS: The trachea and visualized bronchi are normal. Fairly extensive left upper lobe airspace opacity laterally most likelyrelates to radiation fibrosis. Lungs otherwise are clear. There is asmallpartially calcified pleural plaque in the right lower lobe posteriorly onimage 90. Normal heart and pericardium. Normal mediastinum. Nor mal hilar regions. Normal enhancement of the pulmonary arteries. Normal thoracic aorta andvisualized great vessels. Right axillary lymph node dissection, left axillary lymph node dissectionand left lump ectomy cavity are noted. Normal osseous structures. IMPRESSION:No evidence of metastatic disease. 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 Benign-appearing, minimal partially calcified pleural plaque formation inthe right. Postop changes as discussed above. Dictated on 11/18/10 1707 by JAMARI HARRIS MDTranscribed on 11/19/10 1325 by ITS IMPORTSign by JAMARI HARRIS MD on 11/19/10 1326 Sign by: JAMARI HARRIS MD :47 HgA1C , Office (00783) HgA1C , Office 6.8 % (Normal) Range: 4.6 - 7.1 :47 Blood Glucose , Office (97409) Blood Glucose , Office 175 (Normal) :54 CBCD,SMEAR DIFF RED CELL MORPH SeeNote {NORMAL} (Normal) Comments: Result: NORM C+C EOS 7 % (Abnormal) Range: 0-5 MONOCYTE 8 % (Normal) Range: 0-10 PLT EST SeeNote (Normal) Comments: Result: ADEQUATE ABSOLUTE NEUT 2.9 3/uL (Normal) Range: 2.0-7.7 CELLS COUNTED 100 (Normal) LYMPH 27 % (Normal) Range: 19-41 SEGS 58 % (Normal) Range: 47-70 PLT 233 K/mm3 (Normal) Range: 150-450 RDW 13.6 % (Normal) Range: 11.6-14.6 MCH 31.5 pg (Normal) Range: 27.0-32.0 MCHC 35.2 g/dL (Normal) Range: 32-36 MCV 89.3 fL (Normal) Range: 81-99 HCT 38.7 % (Normal) Range: 37-47 HGB 13.6 g/dL (Normal) Range: 12.0-16.0 RBC 4.34 {M/mm3} (Normal) Range: 4.2-5.4 WBC 5.1 K/mm3 (Normal) Range: 4.4-11.0 :54 COMP METABOLIC CO2 27.0 mmol/L (Normal) Range: 21.0-32.0 GAP 9 (Normal) Range: 5-15 CL 106 mmol/L (Normal) Range: 98-107 K 4.4 mmol/L (Normal) Range: 3.5-5.1 NA 142 mmol/L (Normal) Range: 136-145 T BILI 0.40 mg/dL (Normal) Range: 0.00-1.00 ALT 43 U/L (Normal) Range: 12-78 ALK P 98 U/L (Normal) Range: 50-136 A/G 0.9 {RATIO} (Normal) Range: 0.9-2.4 AST 22 U/L (Normal) Range: 15-37 CA 9.5 mg/dL (Normal) Range: 8.5-10.1 GLOB 3.7 g/dL (Normal) Range: 2.7-4.2 ALB 3.5 g/dL (Normal) Range: 3.4-5.0 T PROT 7.2 g/dL (Normal) Range: 6.4-8.2 BUN/CRE 17.5 {RATIO} (Normal) Range: 10-20 EST GFR - AA 96 mL/min (Normal) CREAT,SERUM 0.8 mg/dL (Normal) Range: 0.6-1.0 EST GFR 79 mL/min (Normal) BUN 14 mg/dL (Normal) Range: 7-18 GLU 145 mg/dL (Abnormal) Range: 70-110 Comments: Fasting Glucose result greater than or equal to 126 mg/dL suggests DIABETES MELLITUS per A.D.A. criteria. :54 COMPLETE UA BACTERIA 1+ {/hpf} (Normal) MUCUS, URINE 1+ {/hpf} (Normal) RBC-UA 0 SEEN {/hpf} (Normal) Range: 0-5 SQUAM EPI SeeNote {/hpf} (Normal) Range: 5-10 Comments: Result: 0-5 SEEN WBC SeeNote {/hpf} (Normal) Range: 0-5 Comments: Result: 0-5 SEEN LEUK ESTERASE TRACE (Abnormal) NITRITE UR SeeNote (Normal) Comments: Result: NEGATIVE OCCULT BLOOD-UR SeeNote (Normal) Comments: Result: NEGATIVE UROBILI 0.2 EU/dl (Normal) Range: 0.2 - 1.0 pH UR 6.0 (Normal) Range: 5.0-8.0 PROT DIPSTX SeeNote (Normal) Comments: Result: NEGATIVE SP.GR. DIPSTX 1.015 (Normal) Range: 1.002-1.030 BILIRUBIN URINE SeeNote (Normal) Comments: Result: NEGATIVE GLUCOSE, UR SeeNote (Normal) Comments: Result: NEGATIVE KETONE UR SeeNote mg/dL (Normal) Comments: Result: NEGATIVE CLARITY CLEAR (Normal) COLOR YELLOW (Normal) :54 MICROALB:CRE UR MALB:CREAT 5.2 {mg/g_CRE} (Normal) MICROALBUMIN,UR 5.6 mg/L (Normal) UR CREAT 106.9 mg/dL (Normal) :54 TSH 0.77 {uIU/mL} (Normal) Range: 0.358-3.74 :54 VITD 53955 39.5 pg/mL (Normal) Range: 10.0-75.0 Comments: Performed at: [facility] [id number] Director: Madi Chandler MD, Phone: [phone] HgA1C , Office (73630) HgA1C , Office 6.8 % (Normal) Range: 4.6 - 7.1 :52 Blood Glucose , Office (08487) Blood Glucose , Office 117 (Normal) :35 LIPID HDL 51 mg/dL (Normal) Comments: Reference Range HDL <40 mg/dL Low HDL Cholesterol HDL >or= 60 mg/dL High HDL Cholesterol LDL 69 mg/dL (Normal) Range: 0-130 TRIG 96 mg/dL (Normal) Comments: Serum Triglycerides Reference Interval Normal <150 mg/dL Borderline high 150 - 199 mg/dL High 200 - 499 mg/dL Very High > or = 500 mg/dL VLDL 19 mg/dL (Normal) Range: 5-40 CHOL 139 mg/dL (Normal) Comments: <200 mg/dL Desirable 200-240 mg/dL Borderline >240 mg/dL High Risk :55 HgA1C , Office ([id number]) Comments: done km HgA1C , Office 6.3 % (Normal) Range: 4.6 - 7.1 :55 Blood Glucose , Office ([id number]) Comments: done Blood Glucose , Office 111 (Normal) :10 HgA1C , Office ([id number]) Comments: done km HgA1C , Office 6.6 % (Normal) Range: 4.6 - 7.1 :10 Blood Glucose , Office ([id number]) Comments: done km Blood Glucose , Office 108 (Normal) :00 CBCD,SMEAR DIFF ABSOLUTE NEUT 2.6 3/uL (Normal) Range: 2.0-7.7 BAND 1 % (Normal) Range: 0-5 CELLS COUNTED 100 (Normal) EOS 5 % (Normal) Range: 0-5 LYMPH 47 % (Abnormal) Range: 19-41 MCHC 34.2 g/dL (Normal) Range: 32-36 MONOCYTE 3 % (Normal) Range: 0-10 PLT 198 K/mm3 (Normal) Range: 150-450 PLT EST SeeNote (Normal) Comments: Result: ADEQUATE RDW 13.5 % (Normal) Range: 11.6-14.6 RED CELL MORPH SeeNote {NORMAL} (Normal) Comments: Result: NORM C+C SEGS 44 % (Abnormal) Range: 47-70 HCT 39.3 % (Normal) Range: 37-47 HGB 13.4 g/dL (Normal) Range: 12.0-16.0 MCH 31.1 pg (Normal) Range: 27.0-32.0 MCV 91.0 fL (Normal) Range: 81-99 RBC 4.32 {M/mm3} (Normal) Range: 4.2-5.4 WBC 5.5 K/mm3 (Normal) Range: 4.4-11.0 [id number] COMP METABOLIC ALK P 94 U/L (Normal) Range: 50-136 ALT 31 U/L (Normal) Range: 12-78 CL 104 mmol/L (Normal) Range: 98-107 CO2 28.0 mmol/L (Normal) Range: 21.0-32.0 GAP 7 (Normal) Range: 5-15 K 3.9 mmol/L (Normal) Range: 3.5-5.1 NA 139 mmol/L (Normal) Range: 136-145 T BILI 0.40 mg/dL (Normal) Range: 0.00-1.00 A/G 1.1 {RATIO} (Normal) Range: 0.9-2.4 ALB 3.6 g/dL (Normal) Range: 3.4-5.0 AST 12 U/L (Abnormal) Range: 15-37 BUN 13 mg/dL (Normal) Range: 7-18 BUN/CRE 14.4 {RATIO} (Normal) Range: 10-20 CA 8.4 mg/dL (Abnormal) Range: 8.5-10.1 CREAT,SERUM 0.9 mg/dL (Normal) Range: 0.6-1.0 EST GFR 69 mL/min (Normal) EST GFR - AA 84 mL/min (Normal) GLOB 3.4 g/dL (Normal) Range: 2.7-4.2 T PROT 7.0 g/dL (Normal) Range: 6.4-8.2 GLU 121 mg/dL (Abnormal) Range: 70-110 Comments: Fasting Glucose result from 110 to <126 mg/dLsuggests IMPAIRED HOMEOSTASIS per A.D.A. criteria. [id number] LIPID CHOL 129 mg/dL (Normal) Comments: <200 mg/dL [id number] mg/dL Borderline>240 mg/dL High Risk HDL 46 mg/dL (Normal) Comments: Reference RangeHDL <40 mg/dL Low HDL CholesterolHDL >or= 60 mg/dL High HDL Cholesterol LDL 69 mg/dL (Normal) Range: 0-130 TRIG 69 mg/dL (Normal) Comments: Serum Triglycerides Reference IntervalNormal <150 mg/dLBorderline high 150 - 199 mg/dLHigh 200 - 499 mg/ dLVery High > or = 500 mg/dL VLDL 14 mg/dL (Normal) Range: 5-40 [id number]-[id number]:00 MICROALB:CRE UR MALB:CREAT 3.4 {mg/g_CRE} (Normal) MICROALBUMIN,UR 6.9 mg/L (Normal) UR CREAT 199.6 mg/dL (Normal) [id number]-Aje-451024:00 NMR LIPOPROFILE HDL SIZE 8.5 nm (Abnormal) Comments: Small LDL-P, LDL Particle Size, Large HDL-P, Large VLDL-PVLDL Size, HDL Size, HDL Particle, and LP-IR Scorehave been validated by [facility] but not cleared by US FDA;the clinical utility of these test results has not been fully established. LARGE HDL-P 2.4 umol/L (Abnormal) LDL SIZE 19.9 nm (Abnormal) LP-IR SCORE 62 (Abnormal) Comments: LP-IR Score is inaccurate if patient is non-fasting.The LP-IR Score combines the information from Large VLDL-P,Small LDL-P, Large HDL-P, VLDL Size, LDL Size and HDL Sizeto give improved assessment of in sulin resistance anddiabetes risk. INSULIN RESISTANCE / DIABETES RISK MARKERS<--Insulin Sensitive Insulin Resistant-->Percentile in Re [facility] PopulationLarge VLDL-P Low 25th 50th 75th High<0.9 0.9 2.7 6.9 >6.9.Small LDL-P Low 25th 50th 75th High<117 117 527 839 >839.Large HDL-P High 75th 50th 25th Low>7.3 7.3 4.8 3.1 <3.1.VLDL Size Small 25th 50th 75th Large<42.4 42.4 46.6 52.5 >52.5.LDL Size Large 75th 50th 25th Small>21.2 21.2 20.8 20.4 <20.4.HDL Size Large 75th 50th 25th Small>9.6 9 .6 9.2 8.9 >8.9Insulin Resistance ScoreLP-IR SCORE Low 25th 50th 75th High<27 27 45 63 >63 Performed at: [facility] [id number] [place], [place] [id number] Director: Kirit Venegas PhD SMALL LDL-P 889 nmol/L (Abnormal) VLDL SIZE 44.7 nm (Normal) HDL-C 46 mg/dL (Normal) HDL-P TOTAL 36.3 umol/L (Normal) INS RES/DIAB RK . (Normal) LARGE VLDL-P 1.8 nmol/L (Normal) LD HD PARTICLES . (Normal) LDL SIZE 19.9 nm (Abnormal) Comments: INTERPRETATIVE INFORMATIONPARTICLE CONCENTRATION AND SIZE<--Lower CVD Risk Higher CVD Risk-->LDL AND HDL PARTICLES Percentile i n Reference PopulationHDL-P (total) High 75th 50th 25th Low>34.9 34.9 30.5 26.7 <26.7.Small LDL-P Low 25th 50th 75th High<117 117 527 839 >839.LDL Size <-Large (Pattern A)-> <-Small (Pattern B)->23.0 20.6 20.5 19.0 LDL-C 83 mg/dL (Normal) Comments: LDL-C is inaccurate if patient is nonfasting..Optimal < 100Above optimal 100 - 129Borderline 130 - 159High 160 - 189Very high > 189. LDL-P 1160 nmol/L (Abnormal) Comments: Low < 1000Moderate 1000 - 1299Borderline-High 1300 - 1599High 1600 - 2000Very High > 2000 SMALL LDL-P 889 nmol/L (Abnormal) TRIGLYCERIDES 65 mg/dL (Normal) CHOLESTEROL TOT 142 mg/dL (Normal) LIPIDS . (Normal) :00 TSH 0.79 {uIU/mL} (Normal) Range: 0.358-3.74 :44 HgA1C , Office (40329) Comments: done HgA1C , Office 7.3 % (Abnormal) Range: 4.6 - 7.1 :44 Blood Glucose , Office (09893) Comments: done Blood Glucose , Office 153 (Normal) :59 Blood Glucose , Office (87478) Blood Glucose , Office 102 (Normal) :59 HgA1C , Office (87411) HgA1C , Office 6.5 % (Normal) Range: 4.6 - 7.1 :33 CBCD,SMEAR DIFF BAND 1 % (Normal) Range: 0-5 CELLS COUNTED 100 (Normal) EOS 6 % (Abnormal) Range: 0-5 HCT 40.6 % (Normal) Range: 37-47 HGB 14.1 g/dL (Normal) Range: 12.0-16.0 LYMPH 42 % (Abnormal) Range: 19-41 MCH 30.7 pg (Normal) Range: 27.0-32.0 MCHC 34.6 g/dL (Normal) Range: 32-36 MCV 88.6 fL (Normal) Range: 81-99 MONOCYTE 4 % (Normal) Range: 0-10 PLT 196 K/mm3 (Normal) Range: 150-450 PLT EST SeeNote (Normal) Comments: Result: ADEQUATE RBC 4.59 {M/mm3} (Normal) Range: 4.2-5.4 RDW 13.2 % (Normal) Range: 11.6-14.6 RED CELL MORPH SeeNote {NORMAL} (Normal) Comments: Result: NORM C+C SEGS 47 % (Normal) Range: 47-70 WBC 4.9 K/mm3 (Normal) Range: 4.4-11.0 :33 COMP METABOLIC A/G 1.0 {RATIO} (Normal) Range: 0.9-2.4 ALB 3.6 g/dL (Normal) Range: 3.4-5.0 ALK P 101 U/L (Normal) Range: 50-136 ALT 48 U/L (Normal) Range: 30-65 AST 21 U/L (Normal) Range: 15-37 BUN 14 mg/dL (Normal) Range: 7-18 BUN/CRE 20.0 {RATIO} (Normal) Range: 10-20 CA 8.6 mg/dL (Normal) Range: 8.5-10.1 CL 104 mmol/L (Normal) Range: 98-107 CO2 26.0 mmol/L (Normal) Range: 21.0-32.0 CREAT,SERUM 0.7 mg/dL (Normal) Range: 0.6-1.0 EST GFR 92 mL/min (Normal) EST GFR - AA 112 mL/min (Normal) GAP 9 (Normal) Range: 5-15 GLOB 3.5 g/dL (Normal) Range: 2.7-4.2 GLU 149 mg/dL (Abnormal) Range: 70-110 Comments: Fasting Glucose result greater than or equal to 126 mg/dL suggests DIABETES MELLITUS per A.D.A. criteria. K 3.9 mmol/L (Normal) Range: 3.5-5.1 NA 139 mmol/L (Normal) Range: 136-145 T BILI 0.50 mg/dL (Normal) Range: 0.00-1.00 T PROT 7.1 g/dL (Normal) Range: 6.4-8.2 :33 MICROALB:CRE UR MALB:CREAT <TEST NOT PERFORMED> {mg/g_CRE} (Normal) MICROALBUMIN,UR < 5.0 mg/L (Normal) UR CREAT 93.6 mg/dL (Normal) :33 TSH 0.63 {uIU/mL} (Normal) Range: 0.358-3.74 :56 HgA1C , Office (08148) HgA1C , Office 6.4 % (Normal) Range: 4.6 - 7.1 :56 Blood Glucose , Office (87841) Blood Glucose , Office 235 (Normal) :55 HgA1C , Office (86177) Comments: done km HgA1C , Office 6.7 % (Normal) Range: 4.6 - 7.1 :55 Blood Glucose , Office (62617) Comments: done km Blood Glucose , Office 123 (Normal) :54 UPPER EXT/NO JT W/O CONTRAST Radiology Report See Note (Normal) Comments: Exam Number: [id number] MRI LEFT UPPER EXTREMITY ON THE OPEN MAGNET INDICATIONPalpable lump. COMPARISONNone. TECHNIQUELong and short axis fat and water-weighted MR images were obtainedthrough the mid-lef t humeral shaft in the area of clinical concern inthe coronal, sagittal and axial planes on the open magnet. REPORTMarkers are placed anteriorly localizing the area of a palpable lump. No abnormal mas s, focal signal change, fluid collection or otherabnormality is identified. The visualized musculature demonstratesnormal signal and morphology. Visualized marrow signal is withinnormal limits. IMPRES SIONUnremarkable examination. No abnormality is identified to account forthe clinically-palpable lump. Reported By: JAMARI TRAN M.D. :02 HgA1C , Office (54417) HgA1C , Office 6.0 % (Normal) Range: 4.6 - 7.1 :02 Blood Glucose , Office (43747) Blood Glucose , Office 151 (Normal) :33 HgA1C , Office (78900) HgA1C , Office 6.3 % (Normal) Range: 4.6 - 7.1 Comments: aw :33 Blood Glucose , Office (02958) Blood Glucose , Office 136 (Normal) Comments: :44 CBCD,SMEAR DIFF BASOPHIL 1 % (Normal) Range: 0-1 CELLS COUNTED 100 (Normal) EOS 6 % (Abnormal) Range: 0-5 HCT 41.9 % (Normal) Range: 37-47 HGB 14.4 g/dL (Normal) Range: 12.0-16.0 LYMPH 45 % (Abnormal) Range: 19-41 MCH 31.2 pg (Normal) Range: 27.0-32.0 MCHC 34.5 g/dL (Normal) Range: 32-36 MCV 90.4 fL (Normal) Range: 81-99 MONOCYTE 5 % (Normal) Range: 0-10 PLT 236 K/mm3 (Normal) Range: 150-450 PLT EST SeeNote (Normal) Comments: Result: ADEQUATE RBC 4.63 {M/mm3} (Normal) Range: 4.2-5.4 RDW 13.5 % (Normal) Range: 11.6-14.6 REACTIVE LYMPH 1+ (Normal) RED CELL MORPH SeeNote {NORMAL} (Normal) Comments: Result: NORM C+C SEGS 43 % (Abnormal) Range: 47-70 WBC 6.1 K/mm3 (Normal) Range: 4.4-11.0 :44 COMP METABOLIC A/G 1.1 {RATIO} (Normal) Range: 0.9-2.4 ALB 3.8 g/dL (Normal) Range: 3.4-5.0 ALK P 101 U/L (Normal) Range: 50-136 ALT 46 U/L (Normal) Range: 30-65 AST 19 U/L (Normal) Range: 15-37 BUN 12 mg/dL (Normal) Range: 7-18 BUN/CRE 20.0 {RATIO} (Normal) Range: 10-20 CA 9.0 mg/dL (Normal) Range: 8.5-10.1 CL 106 mmol/L (Normal) Range: 98-107 CO2 28.1 mmol/L (Normal) Range: 21.0-32.0 CREAT,SERUM 0.6 mg/dL (Normal) Range: 0.6-1.0 GAP 9 (Normal) Range: 5-15 GLOB 3.4 g/dL (Normal) Range: 2.7-4.2 GLU 110 mg/dL (Normal) Range: 70-110 Comments: Fasting Glucose result from 110 to <126 mg/dL suggests IMPAIRED HOMEOSTASIS per A.D.A. criteria. K 3.7 mmol/L (Normal) Range: 3.5-5.1 NA 143 mmol/L (Normal) Range: 136-145 T BILI 0.47 mg/dL (Normal) Range: 0.00-1.00 T PROT 7.2 g/dL (Normal) Range: 6.4-8.2 :44 LIPID CHOL 141 mg/dL (Normal) Comments: <200 mg/dL Desirable 200-240 mg/dL Borderline >240 mg/dL High Risk HDL 48 mg/dL (Normal) Comments: Reference Range HDL <40 mg/dL Low HDL Cholesterol HDL >or= 60 mg/dL High HDL Cholesterol LDL 82 mg/dL (Normal) Range: 0-130 TRIG 55 mg/dL (Normal) Comments: Serum Triglycerides Reference Interval Normal <150 mg/dL Borderline high 150 - 199 mg/dL High 200 - 499 mg/dL Very High > or = 500 mg/dL VLDL 11 mg/dL (Normal) Range: 5-40 :44 MICROALB:CRE UR MALB:CREAT <TEST NOT PERFORMED> {mg/g_CRE} (Normal) MICROALBUMIN,UR < 1.3 mg/L (Normal) UR CREAT 93.6 mg/dL (Normal) :44 ROUTINE UA LEUK ESTERASE SeeNote (Normal) Comments: Result: NEGATIVE NITRITE UR SeeNote (Normal) Comments: Result: NEGATIVE OCCULT BLOOD-UR SeeNote (Normal) Comments: Result: NEGATIVE pH UR 6.0 (Normal) Range: 5.0-8.0 PROT DIPSTX SeeNote (Normal) Comments: Result: NEGATIVE UROBILI 0.2 EU/dl (Normal) Range: 0.2 - 1.0 BILIRUBIN URINE SeeNote (Normal) Comments: Result: NEGATIVE CLARITY CLEAR (Normal) COLOR STRAW (Normal) GLUCOSE, UR SeeNote (Normal) Comments: Result: NEGATIVE KETONE UR SeeNote mg/dL (Normal) Comments: Result: NEGATIVE SP.GR. DIPSTX 1.020 (Normal) Range: 1.002-1.030 :44 TSH 0.75 {uIU/mL} (Normal) Range: 0.34-4.82 :58 HgA1C , Office (52303) HgA1C , Office 5.9 % (Normal) Range: 4.6 - 7.1 Comments: aw :00 LIVER ALB 4.2 g/dL (Normal) Range: 3.4-5.0 ALK P 115 U/L (Normal) Range: 50-136 ALT 45 U/L (Normal) Range: 30-65 AST 19 U/L (Normal) Range: 15-37 D BILI 0.11 mg/dL (Normal) Range: 0.00-0.30 T BILI 0.44 mg/dL (Normal) Range: 0.00-1.00 T PROT 7.5 g/dL (Normal) Range: 6.4-8.2 :39 CBCD,SMEAR DIFF CELLS COUNTED 100 (Normal) EOS 4 % (Normal) Range: 0-5 HCT 41.0 % (Normal) Range: 37-47 HGB 14.1 g/dL (Normal) Range: 12.0-16.0 LYMPH 47 % (Abnormal) Range: 19-41 MCH 30.8 pg (Normal) Range: 27.0-32.0 MCHC 34.4 g/dL (Normal) Range: 32-36 MCV 89.5 fL (Normal) Range: 81-99 MONOCYTE 4 % (Normal) Range: 0-10 PLT 247 K/mm3 (Normal) Range: 150-450 PLT EST SeeNote (Normal) Comments: Result: ADEQUATE RBC 4.58 {M/mm3} (Normal) Range: 4.2-5.4 RDW 14.0 % (Normal) Range: 11.6-14.6 RED CELL MORPH SeeNote {NORMAL} (Normal) Comments: Result: NORM C+C SEGS 45 % (Abnormal) Range: 47-70 WBC 5.8 K/mm3 (Normal) Range: 4.4-11.0 :39 COMP METABOLIC A/G 1.0 {RATIO} (Normal) Range: 0.9-2.4 ALB 3.5 g/dL (Normal) Range: 3.4-5.0 ALK P 83 U/L (Normal) Range: 50-136 ALT 46 [iU]/L (Normal) Range: 30-65 AST 19 U/L (Normal) Range: 15-37 BUN 17 mg/dL (Normal) Range: 7-18 BUN/CRE 21.3 {RATIO} (Abnormal) Range: 10-20 CA 8.3 mg/dL (Abnormal) Range: 8.5-10.1 CL 103 mmol/L (Normal) Range: 98-107 CO2 31.6 mmol/L (Normal) Range: 21.0-32.0 CREAT,SERUM 0.8 mg/dL (Normal) Range: 0.6-1.0 GAP 4 (Abnormal) Range: 5-15 GLOB 3.4 g/dL (Normal) Range: 2.7-4.2 GLU 109 mg/dL (Normal) Range: 70-110 K 3.9 mmol/L (Normal) Range: 3.5-5.1 NA 139 mmol/L (Normal) Range: 136-145 T BILI 0.55 mg/dL (Normal) Range: 0.00-1.00 T PROT 6.9 g/dL (Normal) Range: 6.4-8.2 :39 LIPID CHOL 203 mg/dL (Abnormal) Comments: <200 mg/dL Desirable 200-240 mg/dL Borderline >240 mg/dL High Risk HDL 51 mg/dL (Normal) Comments: Reference Range HDL <40 mg/dL Low HDL Cholesterol HDL >or= 60 mg/dL High HDL Cholesterol LDL 141 mg/dL (Abnormal) Range: 0-130 TRIG 53 mg/dL (Normal) Comments: Serum Triglycerides Reference Interval Normal <150 mg/dL Borderline high 150 - 199 mg/dL High 200 - 499 mg/dL Very High > or = 500 mg/dL VLDL 11 mg/dL (Normal) Range: 5-40 :39 MICROALB:CRE UR MALB:CREAT 4.7 {mg/g_CRE} (Normal) MICROALBUMIN,UR 8.7 mg/L (Normal) UR CREAT 185.5 mg/dL (Normal) :39 TSH 0.70 {uIU/mL} (Normal) Range: 0.34-4.82 :57 CHEST, PA AND LATERAL Radiology Report See Note (Normal) Comments: Exam Number: [id number] PA AND LATERAL CHEST HISTORY Being done for cough. Cardiac configuration is normal. No acute infiltrate, effusion, orpneumothorax is identified. IMPRESSIONNo acu te change no marion in the lungs. Reported By: LESLIE VOSS M.D. 70-Hkq-[id number]:19 HgA1C , Office (02000) Comments: done HgA1C , Office 6.0 % (Normal) Range: 4.6 - 7.1 92-Zvj-357231:19 Blood Glucose , Office (26930) Comments: done Blood Glucose , Office 93 (Normal) 4-Qkm-[id number]:12 FOOT,MIN 3 VIEWS Radiology Report See Note (Normal) Comments: Exam Number: [id number] LEFT FOOT, 3 VIEWS HISTORYPain. TECHNIQUEAP, lateral, and oblique views of the left foot were obtained. FINDINGSThere is mild to moderate narrowing in the first metata rsophalangea ljoint. The remainder of the joint spaces is unremarkable. Nofractures are seen. Bony trabecular pattern and soft tissues areunremarkable. If there has been trauma, repeat study in 5 to 7 dayssugges marion. Incidental findings are a small plantar tendon attachment. IMPRESSIONDegenerative changes of the first metatarsal head. Reported By: LESLIE VOSS M.D. 6-[id number]:11 LIPID CHOL 205 mg/dL (Abnormal) Comments: <200 mg/dL Desirable 200-240 mg/dL Borderline >240 mg/dL High Risk HDL 43 mg/dL (Normal) Comments: Reference Range HDL <40 mg/dL Low HDL Cholesterol HDL >or= 60 mg/dL High HDL Cholesterol LDL 147 mg/dL (Abnormal) Range: 0-130 TRIG 77 mg/dL (Normal) Comments: Serum Triglycerides Reference Interval Normal <150 mg/dL Borderline high 150 - 199 mg/dL High 200 - 499 mg/dL Very High > or = 500 mg/dL VLDL 15 mg/dL (Normal) Range: 5-40 [id number]-Tur-[id number]:15 HgA1C , Office (28802) Comments: HgA1C , Office 6.0 % (Normal) Range: 4.6 - 7.1 1-Xfv-377259:15 Blood Glucose , Office (68033) Comments: Blood Glucose , Office 90 (Normal) 4-Dec-15880:10 LIPID PANEL (58881) Comments: do in 3mo; PATIENT WAS FASTINGClinical Information: ADD DRAW FEE [id number] ADD J0 [id number] PERFORMED BY: GURDEEP [facility] [id number] [place] [id number] Cholesterol, Total 227 mg/dL (Abnormal) Range: 100-199 Comment SPRCS (Normal) Comments: If initial LDL-cholesterol result is >100 mg/dL, assess forrisk factors. HDL Cholesterol 46 mg/dL (Normal) Range: 40-59 LDL Cholesterol Calc 165 mg/dL (Abnormal) Range: 0-99 LDL/HDL Ratio 3.6 {ratio_units} (Abnormal) Range: 0.0-3.2 Triglycerides 79 mg/dL (Normal) Range: 0-149 VLDL Cholesterol Josep 16 mg/dL (Normal) Range: 5-40 :55 Blood Glucose , Office (64754) Comments: done Blood Glucose , Office 123 (Normal) :55 HgA1C , Office (23116) Comments: done HgA1C , Office 7.7 % (Abnormal) Range: 4.6 - 7.1 :55 GLUP 343 mg/dL (Abnormal) Comments: GLU,2HPPG 75gm GLUC PPG GLUP from 0825:[id number]. Comments: Glucose result greater than or equal to 200 mg/dLsuggests DIABETES MELLITUS per A.D.A. criteria. 08-Fyv-[id number]:05 MICROALBUMIN,UR 17.2 mg/L (Normal) :05 ROUTINE UA BILIRUBIN URINE SeeNote (Normal) Comments: Result: NEGATIVE CLARITY SeeNote (Normal) Comments: Result: SL CLOUDY COLOR YELLOW (Normal) GLUCOSE, UR TRACE (Normal) KETONE UR SeeNote mg/dL (Normal) Comments: Result: NEGATIVE LEUK ESTERASE SeeNote (Normal) Comments: Result: NEGATIVE NITRITE UR SeeNote (Normal) Comments: Result: NEGATIVE OCCULT BLOOD-UR SeeNote (Abnormal) Comments: Result: TRACE-LYSED pH UR 6.0 (Normal) Range: 5.0-8.0 PROT DIPSTX SeeNote (Normal) Comments: Result: NEGATIVE SP.GR. DIPSTX 1.020 (Normal) Range: 1.002-1.030 UROBILI 0.2 EU/dl (Normal) Range: 0.2 - 1.0 :44 TYESHA-D [id number] TYESHA-DIRECT 57 U/mL (Normal) Range: 0-99 Comments: Negative <100 Equivocal 100 - 120 Positive >120 :44 B12/FOLATES FOLATES,SERUM 20.80 ng/mL (Normal) VITAMIN B12 466 pg/mL (Normal) Range: 211-911 :44 C-REACTIVE PROT 15.56 mg/L (Abnormal) Range: 0.0-6.0 Comments: Test performed using the Dimension C-Reactive ProteinExtended Range assay method. This assay meets the AHA/CDC 2003 recommendations fordetermining patients at high risk for cardiovasculardisease. Reference: High risk CRP >3.0 mg/L :44 CBCD,SMEAR DIFF BAND 2 % (Normal) Range: 0-5 CELLS COUNTED 100 (Normal) HCT 40.1 % (Normal) Range: 37-47 HGB 13.8 g/dL (Normal) Range: 12.0-16.0 LYMPH 54 % (Abnormal) Range: 19-41 MCH 30.2 pg (Normal) Range: 27.0-32.0 MCHC 34.3 g/dL (Normal) Range: 32-36 MCV 87.9 fL (Normal) Range: 81-99 MONOCYTE 2 % (Normal) Range: 0-10 PLT 230 K/mm3 (Normal) Range: 150-450 PLT EST SeeNote (Normal) Comments: Result: ADEQUATE RBC 4.56 {M/mm3} (Normal) Range: 4.2-5.4 RDW 13.3 % (Normal) Range: 11.6-14.6 RED CELL MORPH SeeNote {NORMAL} (Normal) Comments: Result: NORM C&C SEGS 42 % (Abnormal) Range: 47-70 WBC 4.7 K/mm3 (Normal) Range: 4.4-11.0 :44 COMP METABOLIC A/G 0.9 {RATIO} (Normal) Range: 0.9-2.4 ALB 3.5 g/dL (Normal) Range: 3.4-5.0 ALK P 113 U/L (Normal) Range: 50-136 ALT 89 [iU]/L (Abnormal) Range: 30-65 AST 48 U/L (Abnormal) Range: 15-37 BUN 11 mg/dL (Normal) Range: 7-18 BUN/CRE 15.7 {RATIO} (Normal) Range: 10-20 CA 8.4 mg/dL (Abnormal) Range: 8.5-10.1 CL 103 mmol/L (Normal) Range: 98-107 CO2 29.0 mmol/L (Normal) Range: 22.0-29.0 CREAT,SERUM 0.7 mg/dL (Normal) Range: 0.6-1.0 GAP 6 (Normal) Range: 5-15 GLOB 3.7 g/dL (Abnormal) Range: 2.3-3.5 GLU 201 mg/dL (Abnormal) Range: 70-110 Comments: Glucose result greater than or equal to 200 mg/dLsuggests DIABETES MELLITUS per A.D.A. criteria. K 4.3 mmol/L (Normal) Range: 3.5-5.1 NA 138 mmol/L (Normal) Range: 136-145 T BILI 0.40 mg/dL (Normal) Range: 0.00-1.00 T PROT 7.2 g/dL (Normal) Range: 6.4-8.2 :44 ESR SED RATE 21 mm/h (Normal) Range: 0-30 :44 LIPID CHOL 193 mg/dL (Normal) Comments: <200 mg/dL Desirable 200-240 mg/dL Borderline >240 mg/dL High Risk HDL 44 mg/dL (Normal) Comments: Reference Range HDL <40 mg/dL Low HDL Cholesterol HDL >or= 60 mg/dL High HDL Cholesterol LDL 132 mg/dL (Abnormal) Range: 0-130 TRIG 87 mg/dL (Normal) Comments: Serum Triglycerides Reference Interval Normal <150 mg/dL Borderline high 150 - 199 mg/dL High 200 - 499 mg/dL Very High > or = 500 mg/dL VLDL 17 mg/dL (Normal) Range: 5-40 :44 RA LATEX 6502 5.9 {IU/mL} (Normal) Range: 0.0-13.9 Comments: Performed At: [address] [id number] :44 TSH 0.76 {uIU/mL} (Normal) Range: 0.34-4.82 84-Tku-738378:46 MYOCARD PERF SPECT REST/STRESS Radiology Report See Note (Normal) Comments: Exam Number: [id number] MYOCARDIAL PERFUSION SCAN 13.8 millicuries of Tc99m Sestamibi was injected at rest. The patientthen exercised according to the regular Aguilar protocol for 6 minutesand 5 seconds a ttaining 97% of maximum predicted heart rate and workload of 7.1 METs. At peak exercise, 36.0 millicuries of [id number] was injected. Stress images were then obtained. Stress andrest images were r econstructed and compared in the short axis,vertical long and horizontal long axes. Gated images were alsoobtained. Review of the stress images demonstrate normal uptake of tracer notedin all areas of the myocardium. The resting images similarlydemonstrate normal uptake of tracer in all areas of the myocardium. The gated ejection fraction is noted to be 63%. CONCLUSION1. Exercise stress test with no evidence of ischemia at a high work load.2. Preserved ejection fraction. Reported By: MARYLIN FELIPE M.D. Plan of Care Name Dates Details Instructions Hypertension, benign : Diet, Exercise, and Wt loss Indication: Hypertension, benign Hypertension, benign : HTN/CAD Red Flags Indication: Hypertension, benign Mixed hyperlipidemia : Cholesterol mgmt Indication: Mixed hyperlipidemia Diabetes type 2, uncontrolled : Follow up in 3 months Indication: Diabetes type 2, uncontrolled Asthma : Continue Current Prescription(s) Indication: Asthma Diabetes type 2, uncontrolled : Reviewed Lab Indication: Diabetes type 2, uncontrolled Diabetes type 2, uncontrolled : Diet, Exercise, and Wt loss Indication: Diabetes type 2, uncontrolled Diabetes type 2, uncontrolled : *Diabetes Education Indication: Diabetes type 2, uncontrolled Mixed hyperlipidemia : Cholesterol mgmt Indication: Mixed hyperlipidemia Hypertension, benign : Diet, Exercise, and Wt loss Indication: Hypertension, benign Hypertension, benign : HTN/CAD Red Flags Indication: Hypertension, benign Controlled diabetes mellitus type II without complication : Follow up in 4 months Indication: Controlled diabetes mellitus type II without complication Controlled diabetes mellitus type II without complication : Reviewed Lab Indication: Controlled diabetes mellitus type II without complication Hypertension, benign : Continue Current Prescription(s) Indication: Hypertension, benign Hypertension, benign : Diet, Exercise, and Wt loss Indication: Hypertension, benign Hypertension, benign : HTN/CAD Red Flags Indication: Hypertension, benign Mixed hyperlipidemia : Cholesterol mgmt Indication: Mixed hyperlipidemia Controlled diabetes mellitus type II without complication : Diet, Exercise, and Wt loss Indication: Controlled diabetes mellitus type II without complication Controlled diabetes mellitus type II without complication : *Diabetes Education Indication: Controlled diabetes mellitus type II without complication Asthma : Continue Current Prescription(s) Indication: Asthma Controlled diabetes mellitus type II without complication : Follow up in 3 months Indication: Controlled diabetes mellitus type II without complication Hypertension, benign : Diet, Exercise, and Wt loss Indication: Hypertension, benign Hypertension, benign : HTN/CAD Red Flags Indication: Hypertension, benign Mixed hyperlipidemia : Cholesterol mgmt Indication: Mixed hyperlipidemia Controlled diabetes mellitus type II without complication : *Diabetes Education Indication: Controlled diabetes mellitus type II without complication Controlled diabetes mellitus type II without complication : Follow up in 3 months Indication: Controlled diabetes mellitus type II without complication Mixed hyperlipidemia : Cholesterol mgmt Indication: Mixed hyperlipidemia Hypertension, benign : Diet, Exercise, and Wt loss Indication: Hypertension, benign Hypertension, benign : HTN/CAD Red Flags Indication: Hypertension, benign Controlled diabetes mellitus type II without complication : Diet, Exercise, and Wt loss Indication: Controlled diabetes mellitus type II without complication Controlled diabetes mellitus type II without complication : *Diabetes Education Indication: Controlled diabetes mellitus type II without complication Hypertension, benign : Diet, Exercise, and Wt loss Indication: Hypertension, benign Hypertension, benign : HTN/CAD Red Flags Indication: Hypertension, benign Hypertension, benign : Continue Current Prescription(s) Indication: Hypertension, benign Hypertension, benign : Eprescribed prescriptions ([id number]) Indication: Hypertension, benign Diabetes type 2, uncontrolled : Reviewed Lab Indication: Diabetes type 2, uncontrolled Hypertension, benign : Follow up in 3 weeks- bp ck Indication: Hypertension, benign Asthma : Continue Current Prescription(s) Indication: Asthma Diabetes type 2, uncontrolled : Follow up in 3 months Indication: Diabetes type 2, uncontrolled Hypertension, benign : HTN/CAD Red Flags Indication: Hypertension, benign Mixed hyperlipidemia : Cholesterol mgmt Indication: Mixed hyperlipidemia Diabetes type 2, uncontrolled : Diabetes and Exercise: Preventing Low Blood Sugar: blood sugar Indication: Diabetes type 2, uncontrolled Controlled diabetes mellitus type II without complication : Eprescribed prescriptions ([id number]) Indication: Controlled diabetes mellitus type II without complication Controlled diabetes mellitus type II without complication : Follow up in 3 months Indication: Controlled diabetes mellitus type II without complication Mixed hyperlipidemia : Cholesterol mgmt Indication: Mixed hyperlipidemia Hypertension, benign : HTN/CAD Red Flags Indication: Hypertension, benign Hypertension, benign : Diet, Exercise, and Wt loss Indication: Hypertension, benign Controlled diabetes mellitus type II without complication : Diabetes and Exercise: Preventing Low Blood Sugar: blood sugar Indication: Controlled diabetes mellitus type II without complication Controlled diabetes mellitus type II without complication : Follow up in 3 months Indication: Controlled diabetes mellitus type II without complication LEUKEMIA, PLASMA CELL IN REMISSION : Reviewed Sheet Heater Letter Indication: LEUKEMIA, PLASMA CELL IN REMISSION Mixed hyperlipidemia : Cholesterol mgmt Indication: Mixed hyperlipidemia Hypertension : Diet, Exercise, and Wt loss Indication: Hypertension Hypertension : HTN/CAD Red Flags Indication: Hypertension Controlled diabetes mellitus type II without complication : Eprescribed prescriptions (G8553) Indication: Controlled diabetes mellitus type II without complication Controlled diabetes mellitus type II without complication : Diabetes and Exercise: Preventing Low Blood Sugar: blood sugar Indication: Controlled diabetes mellitus type II without complication Dizziness : Eprescribed prescriptions (G8553) Indication: Dizziness Dizziness : Eprescribed prescriptions (G8553) Indication: Dizziness Asthma : Continue Current Prescription(s) Indication: Asthma Hypertension : Diet, Exercise, and Wt loss Indication: Hypertension Hypertension : HTN/CAD Red Flags Indication: Hypertension Mixed hyperlipidemia : Cholesterol mgmt Indication: Mixed hyperlipidemia Diabetes type 2, uncontrolled : Follow up in 3 months Indication: Diabetes type 2, uncontrolled Diabetes type 2, uncontrolled : Eprescribed prescriptions (G8553) Indication: Diabetes type 2, uncontrolled Diabetes type 2, uncontrolled : Diabetes and Exercise: Preventing Low Blood Sugar: blood sugar Indication: Diabetes type 2, uncontrolled Controlled diabetes mellitus type II without complication : Follow up in 3 months Indication: Controlled diabetes mellitus type II without complication Controlled diabetes mellitus type II without complication : Reviewed Lab Indication: Controlled diabetes mellitus type II without complication Mixed hyperlipidemia : Cholesterol mgmt Indication: Mixed hyperlipidemia Controlled diabetes mellitus type II without complication : Diabetes and Exercise: Preventing Low Blood Sugar: blood sugar Indication: Controlled diabetes mellitus type II without complication Mixed hyperlipidemia : Cholesterol mgmt Indication: Mixed hyperlipidemia Hypertension : HTN/CAD Red Flags Indication: Hypertension Asthma : Continue Current Prescription(s) Indication: Asthma Diabetes type 2, uncontrolled : Eprescribed prescriptions (G8553) Indication: Diabetes type 2, uncontrolled Diabetes type 2, uncontrolled : Diabetes and Exercise: Preventing Low Blood Sugar: blood sugar Indication: Diabetes type 2, uncontrolled LEUKEMIA, PLASMA CELL IN REMISSION : Reviewed Sheet Heater Letter Indication: LEUKEMIA, PLASMA CELL IN REMISSION Controlled diabetes mellitus type II without complication : Follow up in 3 months Indication: Controlled diabetes mellitus type II without complication Mixed hyperlipidemia : Reviewed Lab Indication: Mixed hyperlipidemia Controlled diabetes mellitus type II without complication : Follow up in 3 months Indication: Controlled diabetes mellitus type II without complication Mixed hyperlipidemia : Cholesterol mgmt Indication: Mixed hyperlipidemia Hypertension : HTN/CAD Red Flags Indication: Hypertension Cough : Eprescribed prescriptions (G8553) Indication: Cough Controlled diabetes mellitus type II without complication : Follow up 2 week fu cleanse Indication: Controlled diabetes mellitus type II without complication Controlled diabetes mellitus type II without complication : Reviewed Lab Indication: Controlled diabetes mellitus type II without complication Controlled diabetes mellitus type II without complication : Follow up in 3 months Indication: Controlled diabetes mellitus type II without complication Asthma : Continue Current Prescription(s) Indication: Asthma Mixed hyperlipidemia : Cholesterol mgmt Indication: Mixed hyperlipidemia Controlled diabetes mellitus type II without complication : Eprescribed prescriptions (G8553) Indication: Controlled diabetes mellitus type II without complication Controlled diabetes mellitus type II without complication : Diabetes and Exercise: Preventing Low Blood Sugar: blood sugar Indication: Controlled diabetes mellitus type II without complication Controlled diabetes mellitus type II without complication : Follow up in 3 months Indication: Controlled diabetes mellitus type II without complication Hypertension : HTN/CAD Red Flags Indication: Hypertension Mixed hyperlipidemia : Cholesterol mgmt Indication: Mixed hyperlipidemia Hypertension : Continue Current Prescription(s) Indication: Hypertension Controlled diabetes mellitus type II without complication : Eprescribed prescriptions (G8553) Indication: Controlled diabetes mellitus type II without complication Controlled diabetes mellitus type II without complication : Diabetes and Exercise: Preventing Low Blood Sugar: blood sugar Indication: Controlled diabetes mellitus type II without complication Controlled diabetes mellitus type II without complication : Follow up in 3 months Indication: Controlled diabetes mellitus type II without complication Controlled diabetes mellitus type II without complication : Reviewed Lab Indication: Controlled diabetes mellitus type II without complication Controlled diabetes mellitus type II without complication : *Diabetes Education Indication: Controlled diabetes mellitus type II without complication Mixed hyperlipidemia : *Cholesterol - Nonprescription Treatment Indication: Mixed hyperlipidemia Mixed hyperlipidemia : Cholesterol mgmt Indication: Mixed hyperlipidemia Hypertension : HTN/CAD Red Flags Indication: Hypertension Controlled diabetes mellitus type II without complication : Eprescribed prescriptions (G8553) Indication: Controlled diabetes mellitus type II without complication Controlled diabetes mellitus type II without complication : Diabetes and Exercise: Preventing Low Blood Sugar: blood sugar Indication: Controlled diabetes mellitus type II without complication Diabetes type 2, uncontrolled : Follow up -- at march appt Indication: Diabetes type 2, uncontrolled Diabetes type 2, uncontrolled : Follow up in 2 weeks- rev Indication: Diabetes type 2, uncontrolled Diabetes type 2, uncontrolled : Continue Current Prescription(s) Indication: Diabetes type 2, uncontrolled Diabetes type 2, uncontrolled : Follow up in 3 months- gen med Indication: Diabetes type 2, uncontrolled Diabetes type 2, uncontrolled : Follow up in 3 weeks: ck bs Indication: Diabetes type 2, uncontrolled Asthma : Continue Current Prescription(s) Indication: Asthma Mixed hyperlipidemia : Cholesterol mgmt Indication: Mixed hyperlipidemia Vitamin D deficiency, unspecified : Continue Current Prescription(s) Indication: Vitamin D deficiency, unspecified Hypertension : Continue Current Prescription(s) Indication: Hypertension Controlled diabetes mellitus type II without complication : Follow up in 3 months Indication: Controlled diabetes mellitus type II without complication Controlled diabetes mellitus type II without complication : Diet, Exercise, and Wt loss Indication: Controlled diabetes mellitus type II without complication Controlled diabetes mellitus type II without complication : *Diabetes Education Indication: Controlled diabetes mellitus type II without complication Hypertension : Reviewed Lab Indication: Hypertension Mixed hyperlipidemia : *Cholesterol - Nonprescription Treatment Indication: Mixed hyperlipidemia Mixed hyperlipidemia : Cholesterol mgmt Indication: Mixed hyperlipidemia Controlled diabetes mellitus type II without complication : Follow up in 3 months Indication: Controlled diabetes mellitus type II without complication Vitamin D deficiency, unspecified : Continue Current Prescription(s) Indication: Vitamin D deficiency, unspecified LEUKEMIA, PLASMA CELL IN REMISSION : Reviewed Sheet Heater Letter Indication: LEUKEMIA, PLASMA CELL IN REMISSION Asthma : Continue Current Prescription(s) Indication: Asthma Mixed hyperlipidemia : Cholesterol mgmt Indication: Mixed hyperlipidemia Controlled diabetes mellitus type II without complication : Diabetes Mellitus: Type 2 *: diabetes mellitus Indication: Controlled diabetes mellitus type II without complication LEUKEMIA, PLASMA CELL IN REMISSION : Reviewed Sheet Heater Letter Indication: LEUKEMIA, PLASMA CELL IN REMISSION Controlled diabetes mellitus type II without complication : Follow up in 3 months Indication: Controlled diabetes mellitus type II without complication Mixed hyperlipidemia : Cholesterol mgmt Indication: Mixed hyperlipidemia Controlled diabetes mellitus type II without complication : Diabetes Overview (Living with Diabetes): type 2 diabetes Indication: Controlled diabetes mellitus type II without complication Cellulitis : Continue Current Prescription(s) Indication: Cellulitis Diabetes type 2, uncontrolled : Follow up in 3 months Indication: Diabetes type 2, uncontrolled Vitamin D deficiency, unspecified : Continue Current Prescription(s) Indication: Vitamin D deficiency, unspecified Depression : Continue Current Prescription(s) Indication: Depression Asthma : Continue Current Prescription(s) Indication: Asthma Mixed hyperlipidemia : Cholesterol mgmt Indication: Mixed hyperlipidemia Hypertension : Diet, Exercise, and Wt loss Indication: Hypertension Hypertension : HTN/CAD Red Flags Indication: Hypertension Diabetes type 2, uncontrolled : Diabetes Overview (Living with Diabetes): diabetes type 2 Indication: Diabetes type 2, uncontrolled Hypertension : Follow up next week for gen med Indication: Hypertension Hypertension : Follow up in 3 weeks Indication: Hypertension Hypertension : Diabetes and Illness: diabetes Indication: Hypertension Controlled diabetes mellitus type II without complication : Diet, Exercise, and Wt loss Indication: Controlled diabetes mellitus type II without complication Controlled diabetes mellitus type II without complication : *Diabetes Education Indication: Controlled diabetes mellitus type II without complication Diabetes type 2, uncontrolled : Follow up in 1 week Indication: Diabetes type 2, uncontrolled Diabetes type 2, uncontrolled : Follow up in 1 week Indication: Diabetes type 2, uncontrolled Diabetes type 2, uncontrolled : *Diabetes Education Indication: Diabetes type 2, uncontrolled Nausea and Vomiting : Follow up tuesday to review blood sugars and new meds Indication: Nausea and Vomiting Nausea and Vomiting : Reviewed Sheet Heater Letter Indication: Nausea and Vomiting Nausea and Vomiting : Continue Current Prescription(s) Indication: Nausea and Vomiting Diabetes type 2, uncontrolled : Reviewed Lab Indication: Diabetes type 2, uncontrolled Controlled diabetes mellitus type II without complication : Follow up in 2 weeks Indication: Controlled diabetes mellitus type II without complication Controlled diabetes mellitus type II without complication : Diabetes Mellitus: Type 2 *: diabetes mellitus Indication: Controlled diabetes mellitus type II without complication Controlled diabetes mellitus type II without complication : Follow up in 3 months Indication: Controlled diabetes mellitus type II without complication Controlled diabetes mellitus type II without complication : *Diabetes Education Indication: Controlled diabetes mellitus type II without complication Mixed hyperlipidemia : Cholesterol mgmt Indication: Mixed hyperlipidemia Controlled diabetes mellitus type II without complication : Flu Shots (Influenza Vaccine): prevention Indication: Controlled diabetes mellitus type II without complication Asthma : Continue Current Prescription(s) Indication: Asthma Controlled diabetes mellitus type II without complication : Follow up in 3 months Indication: Controlled diabetes mellitus type II without complication Mixed hyperlipidemia : Cholesterol mgmt Indication: Mixed hyperlipidemia Mixed hyperlipidemia : *Cholesterol - Nonprescription Treatment Indication: Mixed hyperlipidemia LEUKEMIA, PLASMA CELL IN REMISSION : Reviewed Sheet Heater Letter Indication: LEUKEMIA, PLASMA CELL IN REMISSION Vitamin D deficiency, unspecified : Reviewed Lab Indication: Vitamin D deficiency, unspecified Controlled diabetes mellitus type II without complication : Diabetes Mellitus: Type 2 *: high blood glucose Indication: Controlled diabetes mellitus type II without complication Controlled diabetes mellitus type II without complication : Reviewed Sheet Heater Letter Indication: Controlled diabetes mellitus type II without complication Controlled diabetes mellitus type II without complication : Follow up in 3 months Indication: Controlled diabetes mellitus type II without complication Controlled diabetes mellitus type II without complication : Continue Current Prescription(s) Indication: Controlled diabetes mellitus type II without complication Hypertension : Diet, Exercise, and Wt loss Indication: Hypertension Hypertension : HTN/CAD Red Flags Indication: Hypertension Controlled diabetes mellitus type II without complication : Diabetes and Exercise: Preventing Low Blood Sugar: blood sugar Indication: Controlled diabetes mellitus type II without complication Hypertension : Continue Current Prescription(s) Indication: Hypertension Hypertension : HTN/CAD Red Flags Indication: Hypertension Mixed hyperlipidemia : *Cholesterol - Nonprescription Treatment Indication: Mixed hyperlipidemia Mixed hyperlipidemia : Cholesterol mgmt Indication: Mixed hyperlipidemia Diabetes type 2, uncontrolled : Follow up in 3 months Indication: Diabetes type 2, uncontrolled Diabetes type 2, uncontrolled : Reviewed Lab Indication: Diabetes type 2, uncontrolled Leukopenia : Reviewed Lab Indication: Leukopenia Diabetes type 2, uncontrolled : Diet, Exercise, and Wt loss Indication: Diabetes type 2, uncontrolled Diabetes type 2, uncontrolled : *Diabetes Education Indication: Diabetes type 2, uncontrolled Other specified viral infection, in conditions classified elsewhere and of unspecified site : *URI Treatment Indication: Other specified viral infection, in conditions classified elsewhere and of unspecified site Other specified viral infection, in conditions classified elsewhere and of unspecified site : *URI Symptoms Indication: Other specified viral infection, in conditions classified elsewhere and of unspecified site Diabetes type 2, uncontrolled : Follow up in 3 months Indication: Diabetes type 2, uncontrolled Mixed hyperlipidemia : *Cholesterol - Nonprescription Treatment Indication: Mixed hyperlipidemia Mixed hyperlipidemia : Cholesterol mgmt Indication: Mixed hyperlipidemia Diabetes type 2, uncontrolled : Diet, Exercise, and Wt loss Indication: Diabetes type 2, uncontrolled Diabetes type 2, uncontrolled : *Diabetes Education Indication: Diabetes type 2, uncontrolled Low back pain potentially associated with radiculopathy : Reviewed Diagnostic Tests Indication: Low back pain potentially associated with radiculopathy Low back pain potentially associated with radiculopathy : Follow up in 1 month Indication: Low back pain potentially associated with radiculopathy Diabetes type 2, uncontrolled : Follow up in 3 months-do ekg at visit Indication: Diabetes type 2, uncontrolled Diabetes type 2, uncontrolled : Diet, Exercise, and Wt loss Indication: Diabetes type 2, uncontrolled Diabetes type 2, uncontrolled : *Diabetes Education Indication: Diabetes type 2, uncontrolled Hypertension : Diet, Exercise, and Wt loss Indication: Hypertension Hypertension : HTN/CAD Red Flags Indication: Hypertension Mixed hyperlipidemia : *Cholesterol - Medication Side Effects Indication: Mixed hyperlipidemia Mixed hyperlipidemia : *Cholesterol - Nonprescription Treatment Indication: Mixed hyperlipidemia Mixed hyperlipidemia : Cholesterol mgmt Indication: Mixed hyperlipidemia Diabetes type 2, uncontrolled : FOLLOW UP IN 3 MONTHS Indication: Diabetes type 2, uncontrolled Mixed hyperlipidemia : CHOLESTEROL MGMT. Indication: Mixed hyperlipidemia Mixed hyperlipidemia : *Cholesterol - Nonprescription Treatment Indication: Mixed hyperlipidemia Mixed hyperlipidemia : *Cholesterol - Medication Side Effects Indication: Mixed hyperlipidemia Diabetes type 2, uncontrolled : Diet, Exercise, and Wt loss Indication: Diabetes type 2, uncontrolled Diabetes type 2, uncontrolled : *Diabetes Education Indication: Diabetes type 2, uncontrolled Asthma : FOLLOW UP IN 2 WEEKS Indication: Asthma Diabetes type 2, uncontrolled : FOLLOW UP IN 3 MONTHS Indication: Diabetes type 2, uncontrolled Mixed hyperlipidemia : Reviewed Lab Indication: Mixed hyperlipidemia Mixed hyperlipidemia : *Cholesterol - Nonprescription Treatment Indication: Mixed hyperlipidemia Mixed hyperlipidemia : CHOLESTEROL MGMT. Indication: Mixed hyperlipidemia Diabetes type 2, uncontrolled : *Diabetes Education Indication: Diabetes type 2, uncontrolled Diabetes type 2, uncontrolled : Diet, Exercise, and Wt loss Indication: Diabetes type 2, uncontrolled Hypertension : Diet, Exercise, and Wt loss Indication: Hypertension Hypertension : HTN/CAD Red Flags Indication: Hypertension Mixed hyperlipidemia : Reviewed Lab Indication: Mixed hyperlipidemia Diabetes type 2, uncontrolled : FOLLOW UP IN 3 MONTHS Indication: Diabetes type 2, uncontrolled Mixed hyperlipidemia : *Cholesterol - Nonprescription Treatment Indication: Mixed hyperlipidemia Mixed hyperlipidemia : CHOLESTEROL MGMT. Indication: Mixed hyperlipidemia Diabetes type 2, uncontrolled : Diet, Exercise, and Wt loss Indication: Diabetes type 2, uncontrolled Diabetes type 2, uncontrolled : *Diabetes Education Indication: Diabetes type 2, uncontrolled Diabetes type 2, uncontrolled : FOLLOW UP IN 3 MONTHS Indication: Diabetes type 2, uncontrolled Hypertension : Diet, Exercise, and Wt loss Indication: Hypertension Hypertension : HTN/CAD Red Flags Indication: Hypertension Mixed hyperlipidemia : CHOLESTEROL MGMT. Indication: Mixed hyperlipidemia Mixed hyperlipidemia : *Cholesterol - Nonprescription Treatment Indication: Mixed hyperlipidemia Mixed hyperlipidemia : *Cholesterol - Medication Side Effects Indication: Mixed hyperlipidemia Mixed hyperlipidemia : Diet, Exercise, and Wt loss Indication: Mixed hyperlipidemia Diabetes type 2, uncontrolled : *Diabetes Education Indication: Diabetes type 2, uncontrolled Diabetes type 2, uncontrolled : FOLLOW UP IN 3 MONTHS Indication: Diabetes type 2, uncontrolled Diabetes type 2, uncontrolled : *Diabetes Education Indication: Diabetes type 2, uncontrolled Diabetes type 2, uncontrolled : Diet, Exercise, and Wt loss Indication: Diabetes type 2, uncontrolled Mixed hyperlipidemia : CHOLESTEROL MGMT. Indication: Mixed hyperlipidemia Mixed hyperlipidemia : *Cholesterol - Nonprescription Treatment Indication: Mixed hyperlipidemia Mixed hyperlipidemia : *Cholesterol - Medication Side Effects Indication: Mixed hyperlipidemia Hypertension : Diet, Exercise, and Wt loss Indication: Hypertension Hypertension : HTN/CAD Red Flags Indication: Hypertension Diabetes type 2, uncontrolled : FOLLOW UP IN 3 MONTHS Indication: Diabetes type 2, uncontrolled Mixed hyperlipidemia : CHOLESTEROL MGMT. Indication: Mixed hyperlipidemia Mixed hyperlipidemia : *Cholesterol - Nonprescription Treatment Indication: Mixed hyperlipidemia Mixed hyperlipidemia : *Cholesterol - Medication Side Effects Indication: Mixed hyperlipidemia Hypertension : Diet, Exercise, and Wt loss Indication: Hypertension Hypertension : HTN/CAD Red Flags Indication: Hypertension Diabetes type 2, uncontrolled : *Diabetes Education Indication: Diabetes type 2, uncontrolled Acute sinusitis, unspecified : *URI Treatment Indication: Acute sinusitis, unspecified Acute sinusitis, unspecified : Antibiotic Usage Education - Female Indication: Acute sinusitis, unspecified Acute sinusitis, unspecified : URI Symptoms Indication: Acute sinusitis, unspecified Hypertension : HTN/CAD Red Flags Indication: Hypertension Controlled diabetes mellitus type II without complication : *Diabetes Education Indication: Controlled diabetes mellitus type II without complication Controlled diabetes mellitus type II without complication : Diet, Exercise, and Wt loss Indication: Controlled diabetes mellitus type II without complication Mixed hyperlipidemia : CHOLESTEROL MGMT. Indication: Mixed hyperlipidemia Mixed hyperlipidemia : Cholesterol - Medication Side Effects Indication: Mixed hyperlipidemia Mixed hyperlipidemia : Cholesterol - Nonprescription Treatment Indication: Mixed hyperlipidemia Cellulitis of arm : Continue Current Prescription(s) Indication: Cellulitis of arm Cellulitis of arm : Reviewed Lab Indication: Cellulitis of arm Cellulitis of arm : Reviewed Diagnostic Tests Indication: Cellulitis of arm Mixed hyperlipidemia : CHOLESTEROL MGMT. Indication: Mixed hyperlipidemia Mixed hyperlipidemia : Cholesterol - Nonprescription Treatment Indication: Mixed hyperlipidemia Mixed hyperlipidemia : Cholesterol - Medication Side Effects Indication: Mixed hyperlipidemia Benign essential hypertension : Continue Current Prescription(s) Indication: Benign essential hypertension Controlled diabetes mellitus type II without complication : *Diabetes Education Indication: Controlled diabetes mellitus type II without complication Controlled diabetes mellitus type II without complication : Reviewed Lab Indication: Controlled diabetes mellitus type II without complication Benign essential hypertension : Reviewed Lab Indication: Benign essential hypertension Benign essential hypertension : Continue Current Prescription(s) Indication: Benign essential hypertension Mixed hyperlipidemia : Cholesterol - Nonprescription Treatment Indication: Mixed hyperlipidemia Mixed hyperlipidemia : CHOLESTEROL MGMT. Indication: Mixed hyperlipidemia Mixed hyperlipidemia : Cholesterol - Medication Side Effects Indication: Mixed hyperlipidemia Unspecified asthma with (acute) exacerbation : MDI Education Indication: Unspecified asthma with (acute) exacerbation Abnormal lung sounds : Solu Medrol Injection/ Education Indication: Abnormal lung sounds Acute sinusitis, unspecified : *URI Treatment Indication: Acute sinusitis, unspecified Acute sinusitis, unspecified : Antibiotic Usage Education - Female Indication: Acute sinusitis, unspecified Acute sinusitis, unspecified : URI Symptoms Indication: Acute sinusitis, unspecified Controlled diabetes mellitus type II without complication : *Diabetes Education Indication: Controlled diabetes mellitus type II without complication Mixed hyperlipidemia : Cholesterol - Nonprescription Treatment Indication: Mixed hyperlipidemia Mixed hyperlipidemia : CHOLESTEROL MGMT. Indication: Mixed hyperlipidemia Benign essential hypertension : Diet, Exercise, and Wt loss Indication: Benign essential hypertension Benign essential hypertension : HTN/CAD Red Flags Indication: Benign essential hypertension Benign essential hypertension : Diet, Exercise, and Wt loss Indication: Benign essential hypertension Benign essential hypertension : HTN/CAD Red Flags Indication: Benign essential hypertension Mixed hyperlipidemia : CHOLESTEROL MGMT. Indication: Mixed hyperlipidemia Mixed hyperlipidemia : Cholesterol - Medication Side Effects Indication: Mixed hyperlipidemia Mixed hyperlipidemia : Cholesterol - Nonprescription Treatment Indication: Mixed hyperlipidemia Abnormal lung sounds : MDI Education Indication: Abnormal lung sounds Abnormal lung sounds : Solu Medrol Injection/ Education Indication: Abnormal lung sounds BRONCHITIS, NOT SPECIFIED ACUTE OR CHRONIC (490.) : *URI Treatment Indication: BRONCHITIS, NOT SPECIFIED ACUTE OR CHRONIC (490.) BRONCHITIS, NOT SPECIFIED ACUTE OR CHRONIC (490.) : Antibiotic Usage Education - Female Indication: BRONCHITIS, NOT SPECIFIED ACUTE OR CHRONIC (490.) BRONCHITIS, NOT SPECIFIED ACUTE OR CHRONIC (490.) : URI Symptoms Indication: BRONCHITIS, NOT SPECIFIED ACUTE OR CHRONIC (490.) Hyperlipidemia : CHOLESTEROL MGMT. Indication: Hyperlipidemia Hyperlipidemia : Cholesterol - Medication Side Effects Indication: Hyperlipidemia Hyperlipidemia : Cholesterol - Nonprescription Treatment Indication: Hyperlipidemia Controlled diabetes mellitus type II without complication : Diet, Exercise, and Wt loss Indication: Controlled diabetes mellitus type II without complication Controlled diabetes mellitus type II without complication : *Diabetes Education Indication: Controlled diabetes mellitus type II without complication Benign essential hypertension : Diet, Exercise, and Wt loss Indication: Benign essential hypertension Benign essential hypertension : HTN/CAD Red Flags Indication: Benign essential hypertension Benign essential hypertension : Continue Current Prescription(s) Indication: Benign essential hypertension Mixed hyperlipidemia : CHOLESTEROL MGMT. Indication: Mixed hyperlipidemia Mixed hyperlipidemia : Cholesterol - Medication Side Effects Indication: Mixed hyperlipidemia Mixed hyperlipidemia : Cholesterol - Nonprescription Treatment Indication: Mixed hyperlipidemia Benign essential hypertension : Continue Current Prescription(s) Indication: Benign essential hypertension Hypertension : FOLLOW UP IN 3 WEEKS Indication: Hypertension Diabetes type 2, uncontrolled : Diet and Exercise Indication: Diabetes type 2, uncontrolled Mixed hyperlipidemia : CHOLESTEROL MGMT. Indication: Mixed hyperlipidemia Mixed hyperlipidemia : Cholesterol - Medication Side Effects Indication: Mixed hyperlipidemia Mixed hyperlipidemia : Cholesterol - Nonprescription Treatment Indication: Mixed hyperlipidemia Hypertension : HTN/CAD Red Flags Indication: Hypertension Diabetes type 2, uncontrolled : *Diabetes Education Indication: Diabetes type 2, uncontrolled Mixed hyperlipidemia : CHOLESTEROL MGMT. Indication: Mixed hyperlipidemia Mixed hyperlipidemia : Cholesterol - Nonprescription Treatment Indication: Mixed hyperlipidemia Mixed hyperlipidemia : Cholesterol - Medication Side Effects Indication: Mixed hyperlipidemia Hypertension : Continue Current Prescription(s) Indication: Hypertension Hypertension : BP MONITORING - SELF Indication: Hypertension Hypertension : HTN/CAD Red Flags Indication: Hypertension Acute sinusitis, unspecified : Antibiotic Usage Education - Female Indication: Acute sinusitis, unspecified Acute sinusitis, unspecified : URI Symptoms Indication: Acute sinusitis, unspecified Acute sinusitis, unspecified : URI treament Indication: Acute sinusitis, unspecified Skin lesion : Shave Biopsy without Epi Indication: Skin lesion Hypertension : Diet and Exercise Indication: Hypertension Inflamed skin tag : Skin Tags Indication: Inflamed skin tag Inflamed skin tag : Skin Infection - Signs and Symptoms Indication: Inflamed skin tag Hypertension : HTN/CAD Red Flags Indication: Hypertension Hyperlipidemia : Diet and Exercise Indication: Hyperlipidemia Hyperlipidemia : Cholesterol - Nonprescription Treatment Indication: Hyperlipidemia Planned Observations LIPOPROTEIN, BLD, BY NMR ([id number])Indication: Mixed hyperlipidemia On: :54 Request CALCIFIDIOL ([id number]) VIT D 25Indication: Vitamin D deficiency, unspecified On: :54 Request TSH ([id number])Indication: Controlled diabetes mellitus type II without complication On: :53 Request URINALYSIS, W/ MICRO ([id number])Indication: Controlled diabetes mellitus type II without complication On: :53 Request MICROALBUMIN: CREATININE RATIO ([id number]) AND ([id number])Indication: Controlled diabetes mellitus type II without complication On: :53 Request METABOLIC PANEL, COMPREHENSIVE ([id number])Indication: Controlled diabetes mellitus type II without complication On: 53 Request CBC W/AUTO DIFF WBC ([id number])Indication: Controlled diabetes mellitus type II without complication On: 33-Lhg-761664:53 Request HGB A1C ([id number])Indication: Diabetes type 2, uncontrolled On: 43-Rjc-259373:41 Request MICROALBUMIN: CREATININE RATIO ([id number]) AND ([id number])Indication: Hypertension, benign On: 10-Hnk-574030:03 Request URINALYSIS ([id number])Indication: Hypertension, benign On: 70-Xex-349897:03 Request Metabolic Panel, Comprehensive ([id number])Indication: Hypertension, benign On: :03 Request TSH ([id number])Indication: Hypertension, benign On: 70-Qlk-524594:03 Request CALCIFEDIOL ([id number])Indication: Vitamin D deficiency, unspecified On: : Request CBC WITH MANUAL DIFF ([id number])Indication: Mixed hyperlipidemia On: :02 Request Lipid Panel ([id number])Indication: Mixed hyperlipidemia On: 69-Cck-017273:02 Request HGB A1C ([id number])Indication: Diabetes type 2, uncontrolled On: 04-Lag-373311:02 Request CALCIFEDIOL ([id number])Indication: Vitamin D deficiency, unspecified On: 0-Rdg-262145:59 Request HGB A1C ([id number])Indication: Controlled diabetes mellitus type II without complication On: 7-Gjl-545396:42 Request CALCIFIDIOL ([id number]) VIT D 25Indication: Vitamin D deficiency, unspecified On: :32 Request TSH ([id number])Indication: Controlled diabetes mellitus type II without complication On: :32 Request URINALYSIS, W/ MICRO ([id number])Indication: Controlled diabetes mellitus type II without complication On: :32 Request MICROALBUMIN: CREATININE RATIO ([id number]) AND ([id number])Indication: Controlled diabetes mellitus type II without complication On: :32 Request METABOLIC PANEL, COMPREHENSIVE ([id number])Indication: Controlled diabetes mellitus type II without complication On: :32 Request LIPID PANEL ([id number])Indication: Controlled diabetes mellitus type II without complication On: :32 Request CBC W/AUTO DIFF WBC ([id number])Indication: Controlled diabetes mellitus type II without complication On: :32 Request TSH ([id number])Indication: Mixed hyperlipidemia On: :55 Request URINALYSIS, W/ MICRO ([id number])Indication: Controlled diabetes mellitus type II without complication On: :55 Request MICROALBUMIN: CREATININE RATIO ([id number]) AND ([id number])Indication: Controlled diabetes mellitus type II without complication On: :55 Request CBC W/AUTO DIFF WBC ([id number])Indication: Controlled diabetes mellitus type II without complication On: :52 Request METABOLIC PANEL, COMPREHENSIVE ([id number])Indication: Controlled diabetes mellitus type II without complication On: :52 Request CALCIFIDIOL ([id number]) VIT D 25Indication: Vitamin D deficiency, unspecified On: :52 Request LIPID PANEL ([id number])Indication: Mixed hyperlipidemia On: :52 Request CALCIFIDIOL ([id number]) VIT D 25Indication: Vitamin D deficiency, unspecified On: :32 Request TSH ([id number])Indication: Controlled diabetes mellitus type II without complication On: 5-Adp-809422:32 Request URINALYSIS, W/ MICRO ([id number])Indication: Controlled diabetes mellitus type II without complication On: :32 Request MICROALBUMIN: CREATININE RATIO ([id number]) AND ([id number])Indication: Controlled diabetes mellitus type II without complication On: :32 Request METABOLIC PANEL, COMPREHENSIVE ([id number])Indication: Controlled diabetes mellitus type II without complication On: :32 Request CBC W/AUTO DIFF WBC ([id number])Indication: Controlled diabetes mellitus type II without complication On: :32 Request TSH ([id number])Indication: Diabetes type 2, uncontrolled On: :28 Request URINALYSIS, W/ MICRO ([id number])Indication: Diabetes type 2, uncontrolled On: :28 Request MICROALBUMIN: CREATININE RATIO ([id number]) AND ([id number])Indication: Diabetes type 2, uncontrolled On: :28 Request METABOLIC PANEL, COMPREHENSIVE ([id number])Indication: Diabetes type 2, uncontrolled On: :27 Request LIPID PANEL ([id number])Indication: Mixed hyperlipidemia On: :27 Request CBC W/AUTO DIFF WBC ([id number])Indication: Diabetes type 2, uncontrolled On: : Request CALCIFIDIOL ([id number]) VIT D 25Indication: Vitamin D deficiency, unspecified On: :27 Request Vitamin D Hydroxy ([id number])Indication: Vitamin D deficiency, unspecified On: :46 Request TSH ([id number])Indication: Controlled diabetes mellitus type II without complication On: :17 Request URINALYSIS, W/ MICRO ([id number])Indication: Hypertension On: :17 Request MICROALBUMIN: CREATININE RATIO ([id number]) AND ([id number])Indication: Controlled diabetes mellitus type II without complication On: :17 Request METABOLIC PANEL, COMPREHENSIVE ([id number])Indication: Hypertension On: :17 Request LIPID PANEL ([id number])Indication: Hypertension On: :17 Request CBC with auto diff ([id number])Indication: Hypertension On: :17 Request Vitamin D Hydroxy ([id number])Indication: Vitamin D deficiency, unspecified On: 5-Bnr-751355:17 Request Vitamin D Hydroxy ([id number])Indication: Controlled diabetes mellitus type II without complication On: 1-Twa-236738:57 Request TSH ([id number])Indication: Controlled diabetes mellitus type II without complication On: :57 Request URINALYSIS, W/ MICRO ([id number])Indication: Controlled diabetes mellitus type II without complication On: :57 Request MICROALBUMIN: CREATININE RATIO ([id number]) AND ([id number])Indication: Controlled diabetes mellitus type II without complication On: :57 Request METABOLIC PANEL, COMPREHENSIVE ([id number])Indication: Controlled diabetes mellitus type II without complication On: 3-Adb-349581:57 Request LIPID PANEL ([id number])Indication: Mixed hyperlipidemia On: :57 Request CBC W/AUTO DIFF WBC ([id number])Indication: Controlled diabetes mellitus type II without complication On: :56 Request Vitamin D Hydroxy ([id number])Indication: Vitamin D deficiency, unspecified On: 8-Szs-692005:01 Request LIPID PANEL ([id number])Indication: Mixed hyperlipidemia On: 6-Jkq-994177:01 Request TSH ([id number])Indication: Diabetes type 2, uncontrolled On: :00 Request URINALYSIS, W/ MICRO ([id number])Indication: Diabetes type 2, uncontrolled On: 8-Bbg-978622:00 Request MICROALBUMIN: CREATININE RATIO ([id number]) AND ([id number])Indication: Diabetes type 2, uncontrolled On: : Request METABOLIC PANEL, COMPREHENSIVE (61572)Indication: Diabetes type 2, uncontrolled On: :00 Request CBC WITH MANUAL DIFF ([id number])Indication: Diabetes type 2, uncontrolled On: : Request CALCIFIDIOL ([id number]) VIT D 25Indication: Vitamin D deficiency, unspecified On: 4-Hoc-107638:55 Request Vitamin D Hydroxy ([id number])Indication: Vitamin D deficiency, unspecified On: :13 Request TSH ([id number])Indication: Diabetes type 2, uncontrolled On: 0-Rha-052336:13 Request URINALYSIS, W/ MICRO ([id number])Indication: Diabetes type 2, uncontrolled On: 1-Drw-664617:13 Request MICROALBUMIN: CREATININE RATIO ([id number]) AND ([id number])Indication: Diabetes type 2, uncontrolled On: :13 Request METABOLIC PANEL, COMPREHENSIVE ([id number])Indication: Diabetes type 2, uncontrolled On: :13 Request CBC WITH MANUAL DIFF ([id number])Indication: Diabetes type 2, uncontrolled On: 9-Coq-332261:13 Request LIPID PANEL ([id number])Indication: Diabetes type 2, uncontrolled On: 7-Agx-838380:13 Request Vitamin D Hydroxy ([id number])Indication: Vitamin D deficiency, unspecified On: 0-Sgw-482630:00 Request TSH ([id number])Indication: Diabetes type 2, uncontrolled On: :59 Request URINALYSIS, W/ MICRO ([id number])Indication: Diabetes type 2, uncontrolled On: 1-Pvu-363370:59 Request MICROALBUMIN: CREATININE RATIO ([id number]) AND ([id number])Indication: Diabetes type 2, uncontrolled On: 3-Ycb-205757:59 Request METABOLIC PANEL, COMPREHENSIVE ([id number])Indication: Diabetes type 2, uncontrolled On: :59 Request LIPID PANEL ([id number])Indication: Diabetes type 2, uncontrolled On: :59 Request CBC WITH MANUAL DIFF ([id number])Indication: Diabetes type 2, uncontrolled On: :59 Request Lipid Panel ([id number])Indication: Mixed hyperlipidemia On: :12 Request HEPATIC FUNCTION PANEL (43833)Indication: Mixed hyperlipidemia On: :12 Request LIPID PANEL ([id number])Indication: Mixed hyperlipidemia On: 8-Wyz-585764:04 Request CBC with manual diff ([id number])Indication: Leukopenia On: :14 Request VITAMIN B12 AND FOLATES ([id number])Indication: Leukopenia On: 15-Ctd-169669:14 Request TSH ([id number])Indication: Diabetes type 2, uncontrolled On: :42 Request URINALYSIS, W/ MICRO ([id number])Indication: Diabetes type 2, uncontrolled On: 57-Ioi-497499:42 Request MICROALBUMIN: CREATININE RATIO ([id number]) AND ([id number])Indication: Diabetes type 2, uncontrolled On: :42 Request METABOLIC PANEL, COMPREHENSIVE ([id number])Indication: Diabetes type 2, uncontrolled On: :42 Request CBC WITH MANUAL DIFF ([id number])Indication: Diabetes type 2, uncontrolled On: 91-Yzh-388164:42 Request CALCIFIDIOL ([id number]) VIT D 25Indication: Vitamin D deficiency, unspecified On: 43-Drq-913899:42 Request LIPID PANEL ([id number])Indication: Mixed hyperlipidemia On: 74-Kuy-027436:06 Request TSH ([id number])Indication: Diabetes type 2, uncontrolled On: 26-Asv-894075:33 Request MICROALBUMIN: CREATININE RATIO ([id number]) AND ([id number])Indication: Diabetes type 2, uncontrolled On: :33 Request METABOLIC PANEL, COMPREHENSIVE ([id number])Indication: Diabetes type 2, uncontrolled On: 10-Anf-786695:33 Request LIPOPROTEIN, BLD, BY NMR ([id number])Indication: Diabetes type 2, uncontrolled On: :33 Request LIPID PANEL ([id number])Indication: Diabetes type 2, uncontrolled On: :33 Request CBC WITH MANUAL DIFF ([id number])Indication: Diabetes type 2, uncontrolled On: :33 Request LIPID PANEL ([id number])Indication: Mixed hyperlipidemia On: : Request LIPOPROTEIN, BLD, BY NMR ([id number])Indication: Mixed hyperlipidemia On: : Request Comments: DO IN 3 MONTHS TSH ([id number])Indication: Controlled diabetes mellitus type II without complication On: :34 Request MICROALBUMIN: CREATININE RATIO ([id number]) AND ([id number])Indication: Controlled diabetes mellitus type II without complication On: :34 Request METABOLIC PANEL, COMPREHENSIVE ([id number])Indication: Controlled diabetes mellitus type II without complication On: :34 Request LIPOPROTEIN, BLD, BY NMR ([id number])Indication: Controlled diabetes mellitus type II without complication On: :34 Request LIPID PANEL ([id number])Indication: Controlled diabetes mellitus type II without complication On: :34 Request CBC WITH MANUAL DIFF ([id number])Indication: Controlled diabetes mellitus type II without complication On: 76-Fqj-812819:34 Request MICROALBUMIN: CREATININE RATIO ([id number]) AND ([id number])Indication: Controlled diabetes mellitus type II without complication On: 48-Oat-357683:08 Request URINALYSIS W/O MICRO ([id number])Indication: Benign essential hypertension On: 52-Qgy-623908:08 Request TSH ([id number])Indication: Benign essential hypertension On: 26-Jff-388625:08 Request LIPID PANEL ([id number])Indication: Benign essential hypertension On: 34-Lit-838145:08 Request METABOLIC PANEL, COMPREHENSIVE ([id number])Indication: Benign essential hypertension On: 87-Mqm-967804:08 Request CBC WITH MANUAL DIFF ([id number])Indication: Benign essential hypertension On: 36-Axm-734516:08 Request HEPATIC FUNCTION PANEL ([id number])Indication: Mixed hyperlipidemia On: 15-Thn-322929:58 Request TSH ([id number])Indication: Controlled diabetes mellitus type II without complication On: 57-Eyt-112878:17 Request MICROALBUMIN: CREATININE RATIO ([id number]) AND ([id number])Indication: Controlled diabetes mellitus type II without complication On: :17 Request METABOLIC PANEL, COMPREHENSIVE ([id number])Indication: Controlled diabetes mellitus type II without complication On: : Request CBC WITH MANUAL DIFF ([id number])Indication: Controlled diabetes mellitus type II without complication On: :17 Request LIPID PANEL ([id number])Indication: Controlled diabetes mellitus type II without complication On: : Request LIPID PANEL ([id number])Indication: Mixed hyperlipidemia On: :46 Request Glucose, PP/2 Hour ([id number])Indication: Other specified abnormal findings of blood chemistry On: : Request LIPID PANEL ([id number])Indication: Mixed hyperlipidemia On: : Request Comments: do in 4 months TSH ([id number])Indication: Fatigue On: : Request Folate ([id number])Indication: Fatigue On: Request VITAMIN B-12 (CYANOCOBALAMIN) ([id number])Indication: Fatigue On: : Request SED RATE ERYTHROCYTE ([id number])Indication: Fatigue On: : Request RHEUMATOID FACTOR-QUANT ([id number])Indication: Fatigue On: Request C-REACTIVE PROTEIN ([id number])Indication: Fatigue On: : Request METABOLIC PANEL, COMPREHENSIVE ([id number])Indication: Fatigue On: : Request CBC (AUTO) ([id number])Indication: Fatigue On: Request TYESHA (ANTINUCLEAR ANTIBODY) ([id number])Indication: Fatigue On: :31 Request TSH ([id number])Indication: Hypertension On: Request URINALYSIS W/O MICRO ([id number])Indication: Hypertension On: Request MICROALBUMIN URINE QUANT ([id number])Indication: Hypertension On: : Request METABOLIC PANEL, COMPREHENSIVE ([id number])Indication: Hypertension On: Request CBC WITH MANUAL DIFF ([id number])Indication: Hypertension On: 4-Yrv-315377:28 Request LIPID PANEL ([id number])Indication: Mixed hyperlipidemia On: :28 Request METABOLIC PANEL, BASIC ([id number])Indication: Hypertension On: 75-Uyq-827472:57 Request Comments: do before next appt Planned Encounters Medical; 3 Month FU - On: 25-Aug-2018 13:15 [facility] Kalyn Forbes DO, DO, Kathleen Planned Procedures Spirometry ([id number])By: Evan CAMPBELL, On: 26-May-2018 Intent Kalyn Meyer DO Comments: really poor technique -- ELECTROCARDIOGRAM, COMPLETE (ECG) On: 17-Feb-2018 Intent ([id number])By: Kalyn Forbes DO Comments: nsr no acute chg Kalyn Forbes DO Spirometry ([id number])By: Evan CAMPBELL, On: 01-Jul-2017 Intent Kalyn Meyer DO Comments: mmild restirctive- asx- poor technique??-- didnt order TLC now since asx -- will follow ELECTROCARDIOGRAM, COMPLETE (ECG) On: 18-Mar-2017 Intent ([id number])By: Kalyn Forbes DO Comments: nsr no acute chg Kalyn Forbes DO Spirometry ([id number])By: Evan CAMPBELL, On: 30-Apr-2016 Intent Kalyn Meyer DO Comments: mild obstruction -- enc to take advair more routinely EKG ([id number])By: Evan CAMPBELL, On: 04-Apr-2015 Intent Kalyn Meyer DO Comments: nsr no acute chg IMMUNIZ ADMNIN, 1 VAC, SNGL/COMBO On: 05-Jul-2014 Intent ([id number])By: Kalyn Forbes DO Comments: lot [id number] 10/23/15location L armroute imgiven by - msmith VIS and/or ABN signed Kalyn Forbes DO PNEUM VAC ADLT/IMUMNOSPR, On: 05-Jul-2014 Intent SBC/INTRM ([id number])By: Kalyn Forbes DO, DO, Kathleen EKG ([id number])By: Evan CAMPBELL, On: 01-Apr-2014 Intent Kalyn Meyer DO Comments: nsr no acute chg Eprescribed prescriptions On: 01-Oct-2013 Intent (G8553)By: Kalyn Forbes DO DO, Kalyn Eprescribed prescriptions On: 29-Jun-2013 Intent (G8553)By: Brenda Arthur LPN Spirometry ([id number])By: Evan CAMPBELL, On: 30-Mar-2013 Intent Kalyn Meyer DO Comments: normal EKG ([id number])By: Evan CAMPBELL, On: 30-Mar-2013 Intent Kalyn Meyer DO Comments: nsr no acute chg Eprescribed prescriptions On: 30-Mar-2013 Intent (G8553)By: Brenda Arthur LPN Eprescribed prescriptions On: 25-Dec-2012 Intent (G8553)By: Oksana Caldera Eprescribed prescriptions On: 04-Dec-2012 Intent (G8553)By: Melissa Romero Eprescribed prescriptions On: 17-Oct-2012 Intent (G8553)By: Brenda Arthur LPN Eprescribed prescriptions On: 11-Sep-2012 Intent (G8553)By: Amy Wilder LPN Spirometry ([id number])By: Evan CAMPBELL, On: 21-Feb-2012 Intent Kalyn Meyer DO Comments: restrictive -- but so poor techniq - dont want to put alot of weight on that Eprescribed prescriptions On: 02-Jul-2011 Intent (G8553)By: Kalyn Forbes DO, DO, Kathleen Radiology - Lumbar SpineBy: Evan On: 31-May-2011 Intent Kalyn CAMPBELL DO, Kathleen Eprescribed prescriptions On: 10-May-2011 Intent (G8553)By: Kalyn Forbes DO, DO, Kathleen Eprescribed prescriptions On: 03-Feb-2011 Intent (G8553)By: Kalyn Forbes DO, DO, Kathleen Nuclear Medicine - Bone ScanBy: On: 23-Nov-2010 Intent Kalyn Forbes DO, DO, Comments: Please CC to Masci's office also. 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 qd will try but lets see what bid EKG ([id number])By: Evan CAMPBELL, On: 20-Jul-2010 Intent Kalyn Meyer DO Comments: nsr no acute chg Spirometry ([id number])By: Evan CAMPBELL, On: 08-Oct-2009 Intent Kalyn Meyer DO Comments: obstruction but poor tch EKG ([id number])By: Wily ROBLEDO, On: 30-May-2009 Intent Maria Del Rosario Comments: nsr no acute changes THER/PROPH/DIAG IV INF, INIT On: 07-Mar-2009 Intent ([id number])By: CORBIN Kwok INFUSION, NORMAL SALINE SOLUTION , On: 07-Mar-2009 Intent 250 CC ([id number])By: CORBIN Kwok Rocephin Injection, 2 Gram On: 07-Mar-2009 Intent (J0696)By: CORBIN Kwok Comments: Lot #:[id number] date:mount given:2 grams Route:IV Site given:left hand Given by: casafused without diff patient voiced no complaints INFUSION, NORMAL SALINE SOLUTION , On: 06-Mar-2009 Intent 1000 CC (Special Coverage Instructions Apply. See MCM: 2049) (J7030)By: Lavonne French CNP HYDRATION IV INFUSION, INIT On: 06-Mar-2009 Intent ([id number])By: Lavonne French CNP Rocephin Injection, 2 Gram On: 06-Mar-2009 Intent (J0696)By: Lavonne French CNP Spirometry ([id number])By: Evan CAMPBELL, On: 15-Nov-2008 Intent Kalyn Meyer DO Comments: done-AWpoor effort -- obstruciton -- asx not using resuce inhaler MRI - OtherBy: Kalyn Forbes DO On: 19-Aug-2008 Intent Kalyn Forbes DO Comments: Left Arm Inhaler Demo ([id number])By: Evan CAMPBELL, On: 10-Jul-2008 Intent Kalyn Meyer DO Comments: done km Aerosol Treatment ([id number])By: On: 10-Jul-2008 Intent Kalyn Forbes DO, DO, Comments: done with albuterol 0.83%better air exchange no wheeze Kalyn Solu- Medrol Injection, 125mg On: 10-Jul-2008 Intent (J2930)By: Kalyn Forbes DO Comments: 2ml given im lt hip lot oatd6 exp 5-11 Kalyn Forbes DO Inhaler Demo ([id number])By: Evan CAMPBELL, On: 08-Nov-2007 Intent Kalyn Meyer DO Solu- Medrol Injection, 125mg On: 08-Nov-2007 Intent ([id number])By: Kalyn Forbes DO Comments: 2ml given imk lt hip lot oajmt exp -10 Kalyn Forbes DO Aerosol Treatment ([id number])By: On: 08-Nov-2007 Intent Kalyn Forbes DO, DO, Comments: doneMORE AIR EXCHANGE AND NO JUNKY NOISE ANYMORE Kalyn Radiology - Chest- PA and LatBy: On: 08-Nov-2007 Intent Kalyn Forbes DO, DO, Kathleen Spirometry ([id number])By: Evan CAMPBELL, On: 08-Nov-2007 Intent Kalyn Meyer DO Comments: done kmNORMAL Radiology - Foot - LeftBy: Evan On: 03-Aug-2007 Intent Kalyn CAMPBELL DO, Kathleen Nuclear Stress Test/Stress On: 03-Apr-2007 Intent SPECT/TreadmillBy: Evan CAMPBELL, Comments: heart group to read Kalyn Meyer DO Echo CompleteBy: Evan CAMPBELL, On: 03-Apr-2007 Intent Kalyn Meyer DO Comments: heart group to read EKG ([id number])By: Evan CAMPBELL, On: 03-Apr-2007 Intent Kalyn Meyer DO Comments: nsr no acute ischemic changes SHAVE LESION, On: 31-Oct-2006 Intent FACE/LID/EAR/NOSE/LIP ([id number])By: Kalyn Forbes DO, DO, Kathleen Spirometry ([id number])By: Evan CAMPBELL, On: 19-Sep-2006 Intent Kalyn Meyer DO Comments: moderate obstruction--on no inhalers encouraged her to resume advair discus and will repeat in one month EKG ([id number])By: Evan CAMPBELL, On: 19-Sep-2006 Intent Kalyn Meyer DO Comments: nsr no acute ischemic changes Instructions Name Dates Details Controlled diabetes mellitus type II without complication : How to access health information online Indication: Controlled diabetes mellitus type II without complication Controlled diabetes mellitus type II without complication : How to access health information online - Detail Indication: Controlled diabetes mellitus type II without complication Controlled diabetes mellitus type II without complication : Patient Instructions Indication: Controlled diabetes mellitus type II without complication BMI 27.0-27.9,adult : How to access health information online Indication: BMI 27.0-27.9,adult BMI 27.0-27.9,adult : How to access health information online - Detail Indication: BMI 27.0-27.9,adult BMI 27.0-27.9,adult : Patient Instructions Indication: BMI 27.0-27.9,adult Non-smoker : How to access health information online Indication: Non-smoker Non-smoker : How to access health information online - Detail Indication: Non-smoker Non-smoker : Patient Instructions Indication: Non-smoker Non-smoker : How to access health information online Indication: Non-smoker Non-smoker : How to access health information online - Detail Indication: Non-smoker Non-smoker : Patient Instructions Indication: Non-smoker BMI 26.0-26.9,adult : How to access health information online Indication: BMI 26.0-26.9,adult BMI 26.0-26.9,adult : How to access health information online - Detail Indication: BMI 26.0-26.9,adult BMI 26.0-26.9,adult : Patient Instructions Indication: BMI 26.0-26.9,adult BMI 28.0-28.9,adult : How to access health information online Indication: BMI 28.0-28.9,adult BMI 28.0-28.9,adult : How to access health information online - Detail Indication: BMI 28.0-28.9,adult BMI 28.0-28.9,adult : Patient Instructions Indication: BMI 28.0-28.9,adult Hypertension, benign : How to access health information online Indication: Hypertension, benign Hypertension, benign : How to access health information online - Detail Indication: Hypertension, benign Hypertension, benign : Patient Instructions Indication: Hypertension, benign Diabetes type 2, uncontrolled : How to access health information online Indication: Diabetes type 2, uncontrolled Diabetes type 2, uncontrolled : How to access health information online - Detail Indication: Diabetes type 2, uncontrolled Diabetes type 2, uncontrolled : Patient Instructions Indication: Diabetes type 2, uncontrolled Controlled diabetes mellitus type II without complication : How to access health information online Indication: Controlled diabetes mellitus type II without complication Controlled diabetes mellitus type II without complication : How to access health information online - Detail Indication: Controlled diabetes mellitus type II without complication Controlled diabetes mellitus type II without complication : Patient Instructions Indication: Controlled diabetes mellitus type II without complication Controlled diabetes mellitus type II without complication : How to access health information online Indication: Controlled diabetes mellitus type II without complication Controlled diabetes mellitus type II without complication : How to access health information online - Detail Indication: Controlled diabetes mellitus type II without complication Controlled diabetes mellitus type II without complication : Patient Instructions Indication: Controlled diabetes mellitus type II without complication Dizziness : How to access health information online Indication: Dizziness Dizziness : How to access health information online - Detail Indication: Dizziness Dizziness : How to access health information online Indication: Dizziness Dizziness : How to access health information online - Detail Indication: Dizziness Dizziness : Patient Instructions Indication: Dizziness Diabetes type 2, uncontrolled : How to access health information online Indication: Diabetes type 2, uncontrolled Diabetes type 2, uncontrolled : How to access health information online - Detail Indication: Diabetes type 2, uncontrolled Diabetes type 2, uncontrolled : Patient Instructions Indication: Diabetes type 2, uncontrolled Controlled diabetes mellitus type II without complication : How to access health information online Indication: Controlled diabetes mellitus type II without complication Controlled diabetes mellitus type II without complication : How to access health information online - Detail Indication: Controlled diabetes mellitus type II without complication Controlled diabetes mellitus type II without complication : Patient Instructions Indication: Controlled diabetes mellitus type II without complication Diabetes type 2, uncontrolled : How to access health information online Indication: Diabetes type 2, uncontrolled Diabetes type 2, uncontrolled : How to access health information online - Detail Indication: Diabetes type 2, uncontrolled Diabetes type 2, uncontrolled : Patient Instructions Indication: Diabetes type 2, uncontrolled Controlled diabetes mellitus type II without complication : How to access health information online Indication: Controlled diabetes mellitus type II without complication Controlled diabetes mellitus type II without complication : How to access health information online - Detail Indication: Controlled diabetes mellitus type II without complication Controlled diabetes mellitus type II without complication : Patient Instructions Indication: Controlled diabetes mellitus type II without complication Cough : How to access health information online Indication: Cough Cough : How to access health information online - Detail Indication: Cough Cough : Patient Instructions Indication: Cough Controlled diabetes mellitus type II without complication : Patient Instructions Indication: Controlled diabetes mellitus type II without complication Controlled diabetes mellitus type II without complication : Patient Instructions Indication: Controlled diabetes mellitus type II without complication Controlled diabetes mellitus type II without complication : Patient Instructions Indication: Controlled diabetes mellitus type II without complication Diabetes type 2, uncontrolled : Patient Instructions Indication: Diabetes type 2, uncontrolled Diabetes type 2, uncontrolled : Patient Instructions Indication: Diabetes type 2, uncontrolled Diabetes type 2, uncontrolled : Patient Instructions-- stop onglyza Indication: Diabetes type 2, uncontrolled Controlled diabetes mellitus type II without complication : Patient Instructions Indication: Controlled diabetes mellitus type II without complication Controlled diabetes mellitus type II without complication : Patient Instructions Indication: Controlled diabetes mellitus type II without complication Controlled diabetes mellitus type II without complication : Patient Instructions Indication: Controlled diabetes mellitus type II without complication Cellulitis : Patient Instructions Indication: Cellulitis Diabetes type 2, uncontrolled : Patient Instructions Indication: Diabetes type 2, uncontrolled Hypertension : Patient Instructions Indication: Hypertension Diabetes type 2, uncontrolled : Patient Instructions Indication: Diabetes type 2, uncontrolled Nausea and Vomiting : Patient Instructions Indication: Nausea and Vomiting Controlled diabetes mellitus type II without complication : Patient Instructions Indication: Controlled diabetes mellitus type II without complication Controlled diabetes mellitus type II without complication : Patient Instructions Indication: Controlled diabetes mellitus type II without complication Controlled diabetes mellitus type II without complication : Patient Instructions Indication: Controlled diabetes mellitus type II without complication Encounters Office Visit On: 26-May-2018 14:55 Encounter Reason: Follow up for chronic medical issues - The patient feels well with minor complaints, has good energy level and is sleeping well. Patient has been compliant with instructions. Current medication use: no End: 26-May-2018 16:35 side effects and compliant with dosing regimen. Patient sleeps 7 hours per night. Nutrition: balanced diet and supplemental vitamins. The medical issues the patient is following up for include All ident ified problems below, blood sugar issues, high blood pressure and high cholesterol. 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 Patient has been compliant with instructions. Current medication use: no side effects and compliant with dosing regimen. Patient sleeps 7 hours per night . Nutrition: balanced diet and supplemental vitamins. The medical issues the patient is following up for include All identified problems below, blood sugar issues, high blood pressure and high cholesterol. fasting blood sugars : and weight :. Encounter Diagnosis: Non-smoker, BMI 27.0-27.9,adult, Hypertension, benign, Vitamin D deficiency, unspecified, Mixed hyperlipidemia, Diabetes type 2, uncontrolled, Asthma [facility] Phone Encounter On: 11-Jan-2018 15:00 Encounter Diagnosis: Diabetes type 2, uncontrolled, Mixed hyperlipidemia, Vitamin D deficiency, unspecified, Hypertension, benign End: 11-Jan-2018 15:04 [facility] Office Visit On: 07-Oct-2017 14:48 Encounter Reason: Cough - No changes in management were made at the last visit. Symptoms include cough, wheezing, chills, runny nose and stuffy nose, while symptoms do not include fever. The cough is described as loose. End: 07-Oct-2017 15:06 Cough onset was sudden. There is no known event that preceded symptom onset. The cough occurs constantly. Symptoms are described as moderate in severity and worsening.Encounter Diagnosis: BMI 26.0-26.9,adult, Non-smoker, Sinusitis, bacterial, Cough, Asthma [facility] Office Visit On: 30-Sep-2017 13:07 Encounter Reason: Follow up tests - Date: (scanned in 09/12)., [ADDITIONAL REASON] Follow up for chronic medical issues - The patient feels well with minor complai End: 30-Sep-2017 15:04 nts, has good energy level and is sleeping well. Patient has been compliant with instructions. Current medication use: no side effects and compliant with dosing regimen. Patient sleeps 7 hours per night . Nutrition: balanced diet and no supplemental vitamins & iron. The medical issues the patient is following up for include All identified problems below, blood sugar issues, high blood pressure and high cholesterol. blood pressure range :, fasting blood sugars : and peak flows. Encounter Diagnosis: BMI 26.0-26.9,adult, Non-smoker, Controlled diabetes mellitus type II without complication, Asthma, Hypertension, benign, Mixed hyperlipidemia, Vitamin D deficiency, unspecified, Depression, LEUKEMIA, 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), Leukocytosis, unspecified type, Microalbuminuria [facility] Office Visit On: 01-Jul-2017 12:55 Encounter Reason: Follow up for chronic medical issues - The patient feels well with minor complaints, has good energy level and is sleeping well. Patient has been compliant with instructions. Current medication use: no End: 01-Jul-2017 14:47 side effects and compliant with dosing regimen. Patient sleeps 7 hours per night. Nutrition: balanced diet and no supplemental vitamins & iron. The medical issues the patient is following up for inc lude All identified problems below, asthma, blood sugar issues and depression (anxiety). blood pressure range :, fasting blood sugars : and weight :.Encounter Diagnosis: Non-smoker, BMI 26.0-26.9,adult, Mixed hyperlipidemia, Vitamin D deficiency, unspecified, Hypertension, benign, Controlled diabetes mellitus type II without complication, Asthma [facility] Office Visit On: 18-Mar-2017 13:18 Encounter Reason: Follow up for chronic medical issues - The patient feels well with minor complaints, has good energy level and is sleeping well. Patient has been compliant with instructions. Current medication use: no End: 18-Mar-2017 15:22 side effects and compliant with dosing regimen. Patient sleeps 7 hours per night. Nutrition: balanced diet and no supplemental vitamins & iron. The medical issues the patient is following up for inc lude All identified problems below, blood sugar issues, high blood pressure, high cholesterol and other. fasting blood sugars :.Encounter Diagnosis: Controlled diabetes mellitus type II without complication, BMI 28.0-28.9,adult, Hypertension, benign , Vitamin D deficiency, unspecified, Mixed hyperlipidemia, Anxiety (300.00) [facility] Office Visit On: 27-Dec-2016 16:07 Encounter Reason: Follow up Hypertension, [ADDITIONAL REASON] Follow up Meds - The patient feels well with minor complaints, has good energy level and is sleeping well. Patient has been compliant with instructions. Current medication use: no s End: 27-Dec-2016 17:09 angela effects and compliant with dosing regimen. Patient sleeps 7 hours per night. Nutrition: balanced diet. Encounter Diagnosis: BMI 28.0-28.9,adult, Non-smoker, Hypertension, benign [facility] Office Visit On: 06-Dec-2016 15:24 Encounter Reason: Follow up for chronic medical issues - The patient feels well with minor complaints, has good energy level and is sleeping well. Patient has been compliant with instructions. Current medication use: no End: 06-Dec-2016 18:15 side effects and compliant with dosing regimen. Patient sleeps 7 hours per night. Nutrition: balanced diet and no supplemental vitamins & iron. The medical issues the patient is following up for inc lude All identified problems below, blood sugar issues, high blood pressure and high cholesterol. blood pressure range :, fasting blood sugars : and weight :.Encounter Diagnosis: Diabetes type 2, uncontrolled, BMI 28.0-28.9,adult, Non-smoker, Mixed hyperlipidemia, Vitamin D deficiency, unspecified, Hypertension, benign, Asthma, Depression [facility] Office Visit On: 13-Aug-2016 14:10 Encounter Reason: Follow up for chronic medical issues - The patient feels well with minor complaints, has good energy level and is sleeping well. Patient has been compliant with instructions. Current medication use: no End: 13-Aug-2016 14:58 side effects and compliant with dosing regimen. Patient sleeps 8 hours per night. Nutrition: balanced diet and supplemental vitamins. The medical issues the patient is following up for include All ident ified problems below, blood sugar issues, high blood pressure, high cholesterol and other. 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 Patient has been compliant with instructions. Current medication use: no side effects. Patient slee End: 30-Apr-2016 16:54 ps 7 hours per night. Impact of disease: no overall impact. The medical issues the patient is following up for include blood sugar issues and other. 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 Symptoms include dizziness and difficulty ambulating. The dizziness is described as a spinning sensation. Onset was sudden 7 hour(s) ago. The sympto End: 25-Mar-2016 8:34 ms occur intermittently. The episodes occur daily. The patient describes this as moderate in severity and unchanged. Previous presentation included dizziness and headache.Encounter Diagnosis: Dizziness, Diabetes type 2, uncontrolled, Vitamin D deficiency, unspecified, Mixed hyperlipidemia [facility] Office Visit On: 23-Jan-2016 12:40 Encounter Reason: Follow up for chronic medical issues - The patient feels well with minor complaints, has good energy level and is sleeping well. Patient has been compliant with instructions. Current medication use: no End: 23-Jan-2016 13:58 side effects and compliant with dosing regimen. Patient sleeps 7 hours per night. Nutrition: balanced diet and supplemental vitamins. The medical issues the patient is following up for include All ident ified problems below, asthma, blood sugar issues, depression, high blood pressure and high cholesterol. 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 Patient has been compliant with instructions. Current medication use: no End: 17-Oct-2015 13:39 side effects and compliant with dosing regimen. Patient sleeps 7 hours per night. Nutrition: balanced diet and supplemental vitamins. The medical issues the patient is following up for include All ident ified problems below, blood sugar issues, depression, high blood pressure and high cholesterol. 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 Patient has been compliant with instructions. Current medication use: no End: 11-Jul-2015 14:29 side effects and compliant with dosing regimen. Patient sleeps 7 hours per night. Nutrition: balanced diet and no supplemental vitamins & iron. The medical issues the patient is following up for inc lude All identified problems below, blood sugar issues, high blood pressure and high cholesterol. blood pressure range :, fasting blood sugars : and weight :.Encounter Diagnosis: Vitamin D deficiency, unspecified, Asthma, Hypertension 401.1 (Renamed from Hypertension (401.0)), Hyperlipidemia, Mixed (272.2), Diabetes type 2, uncontrolled [facility] Office Visit On: 23-Apr-2015 12:52 Encounter Reason: Sinusitis - The last clinic visit was 2 day(s) ago. Symptoms include nasal congestion and postnasal drainage. Onset was sudden 2 day(s) ago. The symptoms occur constantly. The episodes occur daily and l End: 23-Apr-2015 13:13 ast for 2 days. The patient describes this as worsening. Symptoms are not exacerbated by bending forward, lying down, remaining upright, Valsalva maneuver or air conditioning. Symptoms are not relieved by air conditioning, elevating head of bed, lying down, remaining upright, steam inhalation, hot compresses, non-prescription analgesics, oral antihistamine, oral decongestant, decongestant nasal spray, oral mucolytic, saline nasal drops or oral antibiotic. Associated symptoms do not include chills, fever, diplopia, periorbital redness, periorbital swelling, nausea, neck stiffness or sore throat. The patient is not currently being treated for this problem. Previous presentation included nasal congestion, postnasal drainage and cheek discomfort. This problem has not been previously evaluated. This problem has not been previously treated. Encounter Diagnosis: Acute sinusitis, unspecified (461.9), Allergic Rhinitis(477.9) [facility] Office Visit On: 04-Apr-2015 13:13 Encounter Reason: Follow up for chronic medical issues - The patient feels well with minor complaints, has good energy level and is sleeping well. Patient has been compliant with instructions. Current medication use: no End: 04-Apr-2015 14:47 side effects and compliant with dosing regimen. Patient sleeps 7 hours per night. Nutrition: balanced diet and supplemental vitamins. The medical issues the patient is following up for include All ident ified problems below, blood sugar issues, high blood pressure, high cholesterol and other. blood pressure range :, fasting blood sugars : and weight :., [ADDITIONAL REASON] Follow up tests - Date: (04/01/15 labs). Encounter Diagnosis: Type II Diabetes,controlled (250.00), Hyperlipidemia, Mixed (272.2), Vitamin D deficiency, unspecified (268.9), Depression (311.), LEUKEMIA, 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), Asthma (493.11) [facility] Office Visit On: 27-Dec-2014 13:04 Encounter Reason: Follow up for chronic medical issues - The patient feels well with minor complaints, has good energy level and is sleeping well. Patient has been compliant with instructions. Current medication use: no End: 27-Dec-2014 14:23 side effects and compliant with dosing regimen. Patient sleeps 7 hours per night. Nutrition: balanced diet and no supplemental vitamins & iron. The medical issues the patient is following up for inc lude All identified problems below, blood sugar issues, high blood pressure and high cholesterol. blood pressure range :, fasting blood sugars : and weight :.Encounter Diagnosis: Type II Diabetes,controlled (250.00), LEUKEMIA, 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), Hypertension 401.1 (Renamed from Hypertension (401.0)), Hyperlipidemia, Mixed (272.2), Vitamin D deficiency, unspecified (268.9) [facility] Office Visit On: 25-Nov-2014 14:59 Encounter Reason: Upper Respiratory Infection (URI) - The last clinic visit was 3 day(s) ago. No changes in management were made at the last visit. Symptoms include sneezing, nasal congestion, runny nose, productive coug End: 25-Nov-2014 16:11 h, wheezing and general malaise, while symptoms do not include fever or chills. The symptoms occur constantly. The patient describes this as severe and worsening. Associated symptoms include shortness o f breath and colored sputum, while associated symptoms do not include ear pain or ear plugging.Encounter Diagnosis: Cough, BRONCHITIS, NOT SPECIFIED ACUTE OR CHRONIC (490.) [facility] Office Visit On: 04-Oct-2014 12:46 Encounter Reason: Follow up for chronic medical issues - The patient feels well with minor complaints, has good energy level and is sleeping well. Patient has been compliant with instructions. Current medication use: no End: 04-Oct-2014 15:54 side effects and compliant with dosing regimen. Patient sleeps 8 hours per night. Nutrition: balanced diet and supplemental vitamins. The medical issues the patient is following up for include All ident ified problems below, blood sugar issues, high blood pressure, high cholesterol and other. blood pressure range :, fasting blood sugars : and weight :.Encounter Diagnosis: Type II Diabetes,controlled (250.00), Hyperlipidemia, Mixed (272.2), Vitamin D deficiency, unspecified (268.9), Asthma (493.11), Anxiety (300.00), LEUKEMIA, 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) [facility] Office Visit On: 05-Jul-2014 12:58 Encounter Reason: Follow up for chronic medical issues - The patient feels well with minor complaints, has good energy level and is sleeping well. Patient has been compliant with instructions. Current medication use: no End: 05-Jul-2014 14:31 side effects and compliant with dosing regimen. Patient sleeps 8 hours per night. Nutrition: balanced diet and supplemental vitamins. The medical issues the patient is following up for include All ident ified problems below, blood sugar issues and depression. blood pressure range :, fasting blood sugars : and weight :.Encounter Diagnosis: Type II Diabetes,controlled (250.00), Hyperlipidemia, Mixed (272.2), Hypertension 401.1 (Renamed from Hypertension (401.0)), Asthma (493.11), LEUKEMIA, 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) [facility] Office Visit On: 01-Apr-2014 16:57 Encounter Reason: Follow up for chronic medical issues - Patient has been compliant with instructions. Current medication use: no side effects and compliant with dosing regimen. Patient sleeps 7 hours per night. Nutritio End: 01-Apr-2014 18:28 n: balanced diet and supplemental vitamins. The medical issues the patient is following up for include All identified problems below, blood sugar issues, high blood pressure, high cholesterol and other. blood pressure range :, fasting blood sugars : and weight :., [ADDITIONAL REASON] Follow up tests - Date: (03/26/14 labs). Encounter Diagnosis: Type II Diabetes,controlled (250.00), Asthma (493.11), Depression (311.), Hyperlipidemia, Mixed (272.2) , Hypertension 401.1 (Renamed from Hypertension (401.0)) [facility] Office Visit On: 15-Feb-2014 13:12 Encounter Reason: Follow up Meds - The patient feels well with minor complaints, has good energy level and is sleeping well. Patient has been compliant with instructions. Current medication use: no side effects and compl End: 15-Feb-2014 13:44 iant with dosing regimen. Patient sleeps 7 hours per night. Nutrition: balanced diet., [ADDITIONAL REASON] Follow up for diabetes/glucose intolerance - fasting blood sugars :. Encounter Diagnosis: Type II Diabetes,uncontrolled (250.02) [facility] Office Visit On: 25-Jan-2014 13:09 Encounter Reason: Follow up for diabetes/glucose intolerance - The patient feels well with minor complaints, has good energy level and is sleeping well. Patient has been compliant with instructions. Current medication End: 25-Jan-2014 13:35 e: non-compliant with dosing regimen. Nutrition: balanced diet., [ADDITIONAL REASON] Follow up Meds - Patient has been compliant with instructions. Current medication use: no side effects and compliant with dosing regimen. Encounter Diagnosis: Type II Diabetes,uncontrolled (250.02) [facility] Office Visit On: 04-Jan-2014 13:05 Encounter Reason: Follow up for chronic medical issues - The patient feels well with minor complaints, has good energy level and is sleeping well. Patient has been compliant with instructions. Current medication use: no End: 04-Jan-2014 14:02 side effects and compliant with dosing regimen. Patient sleeps 7 hours per night. Nutrition: balanced diet and no supplemental vitamins & iron. The medical issues the patient is following up for inc lude All identified problems below, blood sugar issues, high blood pressure and high cholesterol. blood pressure range : and weight :.Encounter Diagnosis: Type II Diabetes,uncontrolled (250.02), Dysuria, Vitamin D deficiency, unspecified (268.9), Hyperlipidemia, Mixed (272.2), Asthma (493.11), Depression (311.) [facility] Office Visit On: 01-Oct-2013 15:29 Encounter Reason: Follow up tests - Date: (09/15/13 labs)., [ADDITIONAL REASON] Follow up for chronic medical issues - The patient feels well with minor complai End: 01-Oct-2013 16:06 nts, has good energy level and is sleeping well. Patient has been compliant with instructions. Current medication use: no side effects and compliant with dosing regimen. Patient sleeps 7 hours per night . Nutrition: balanced diet and no supplemental vitamins & iron. The medical issues the patient is following up for include All identified problems below, blood sugar issues, depression and high bloo d pressure. blood pressure range :, fasting blood sugars : and weight :. Encounter Diagnosis: Asthma (493.11), Anxiety (300.00), Hyperlipidemia, Mixed (272.2), Hypertension 401.1 (Renamed from Hypertension (401.0)), Type II Diabetes,controlled (250.00), Vitamin D deficiency, unspecified (268.9) [facility] Office Visit On: 29-Jun-2013 11:29 Encounter Reason: Follow up for chronic medical issues - The patient feels well with minor complaints, has decreased energy level and is sleeping well. Patient has been compliant with instructions. Current medication use End: 29-Jun-2013 12:16 : no side effects and compliant with dosing regimen. Patient sleeps 8 hours per night. Nutrition: balanced diet and no supplemental vitamins & iron. The medical issues the patient is following up fo r include All identified problems below, blood sugar issues, depression, high blood pressure and high cholesterol. fasting blood sugars :.Encounter Diagnosis: Type II Diabetes,controlled (250.00), Anxiety (300.00), LEUKEMIA, 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), Asthma (493.11), Hyperlipidemia, Mixed (272.2), Vitamin D deficiency, unspecified (268.9) [facility] Office Visit On: 30-Mar-2013 10:22 Encounter Reason: Follow up tests - Date: (03/23/13 labs)., [ADDITIONAL REASON] Follow up for chronic medical issues - The patient feels well with minor complai End: 30-Mar-2013 14:49 nts, has decreased energy level and is sleeping well. Patient has been compliant with instructions. Current medication use: no side effects and compliant with dosing regimen. Patient sleeps 7 hours per night. Nutrition: balanced diet and no supplemental vitamins & iron. The medical issues the patient is following up for include All identified problems below, blood sugar issues, high blood pressure and high cholesterol. fasting blood sugars :. Encounter Diagnosis: Type II Diabetes,controlled (250.00), Hyperlipidemia, Mixed (272.2), Vitamin D deficiency, unspecified (268.9), LEUKOPENIA, NOS (288.0), Asthma (493.11), LEUKEMIA, 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) [facility] Office Visit On: 01-Jan-2013 12:03 Encounter Reason: Skin Problems - The onset of the skin problems has been sudden and they have been occurring in a persistent pattern for 2 days. The course has been constant. The problem is characterized as infection. L End: 01-Jan-2013 12:33 esions are described as red. The spots were first seen on the trunk. There has been no associated itching.Encounter Diagnosis: Cellulitis [facility] Office Visit On: 01-Jan-2013 8:38 Encounter Diagnosis: Cellulitis End: 01-Jan-2013 8:42 [facility] Office Visit On: 25-Dec-2012 15:39 Encounter Reason: Follow up for chronic medical issues - The patient feels well with minor complaints, has good energy level and is sleeping well. Patient has been compliant with instructions. Current medication use: no End: 25-Dec-2012 16:04 side effects and compliant with dosing regimen. Patient sleeps 7 hours per night. Nutrition: balanced diet and low salt diet. fasting blood sugars :.Encounter Diagnosis: Type II Diabetes,uncontrolled (250.02), Hypertension 401.1 (Renamed from Hypertension (401.0)), Vitamin D deficiency, unspecified (268.9), Hyperlipidemia, Mixed (272.2), Asthma (493.11), Depression (311.) [facility] Office Visit On: 04-Dec-2012 15:49 Encounter Reason: Follow up for chronic medical issues - The patient feels well with no complaints, has decreased energy level and is sleeping well. Patient has been compliant with instructions. Current medication use: n End: 04-Dec-2012 16:20 o side effects. Patient sleeps 8 hours per night.Encounter Diagnosis: Hypertension 401.1 (Renamed from Hypertension (401.0)), Type II Diabetes,uncontrolled (250.02) [facility] Office Visit On: 20-Nov-2012 11:05 Encounter Reason: Follow up for diabetes/glucose intolerance - The patient feels well with minor complaints. Patient has been compliant with instructions. Nutrition: balanced diet. fasting blood sugars :. Note for Follo End: 20-Nov-2012 11:52 w up for diabetes/glucose intolerance: doing better but still has a high one once a dayEncounter Diagnosis: Type II Diabetes,controlled (250.00) [facility] Office Visit On: 13-Nov-2012 14:57 Encounter Reason: Follow up for diabetes/glucose intolerance - The patient does not feel well. Patient has been compliant with instructions. Current medication use: non-compliant with dosing regimen. Nutrition: balanced End: 13-Nov-2012 15:57 diet. fasting blood sugars : (106-249).Encounter Diagnosis: Type II Diabetes,uncontrolled (250.02), Jaundice, hepatocellular (573.8), Hyperlipidemia, Mixed (272.2) [facility] Office Visit On: 03-Nov-2012 13:01 Encounter Reason: Follow up for diabetes/glucose intolerance - The patient feels well with minor complaints, has good energy level and is sleeping well. Patient has been compliant with instructions. Current medication End: 03-Nov-2012 13:38 e: experiencing side effects. Nutrition: balanced diet. fasting blood sugars : (132 to 185) and postprandial sugars : (169).Encounter Diagnosis: Type II Diabetes,uncontrolled (250.02), Jaundice, hepatocellular (573.8), Scleral icterus (782.4) [facility] Office Visit On: 31-Oct-2012 8:55 Encounter Reason: Follow up for diabetes/glucose intolerance - The patient does not feel well, has decreased energy level and is sleeping poorly. Patient has been compliant with instructions. Nutrition: balanced diet. fa End: 31-Oct-2012 9:49 sting blood sugars :, postprandial sugars : and evening sugars :. Note for Follow up for diabetes/glucose intolerance: had her weekly labs drawn at [facility] [place] and they called stating her sugar was 440. SO i went to er last night at 10:30 bc i started vomiting and was so weak and they gave me fluids and I was released at 4am today. i am not vomiting anymore. still weak and tired. pt in active chemo now Encounter Diagnosis: Type II Diabetes,uncontrolled (250.02), Nausea and Vomiting (787.01) [facility] Office Visit On: 17-Oct-2012 12:46 Encounter Reason: Follow up for diabetes/glucose intolerance - The patient feels well with minor complaints, has decreased energy level and is sleeping well. Patient has been compliant with instructions. Nutrition: erasmo End: 17-Oct-2012 13:44 lenny diet. fasting blood sugars : and postprandial sugars :.Encounter Diagnosis: Type II Diabetes,controlled (250.00) [facility] Office Visit On: 14-Sep-2012 9:06 Encounter Diagnosis: Hyperlipidemia, Mixed (272.2) End: 14-Sep-2012 9:13 [facility] Visit On: 11-Sep-2012 8:09 Encounter Reason: Follow up for chronic medical issues - The patient feels well with minor complaints, has decreased energy level and is sleeping well. Patient has been compliant with instructions. Current medication use End: 11-Sep-2012 9:06 : no side effects and compliant with dosing regimen. Patient sleeps 8 hours per night. Nutrition: balanced diet and no supplemental vitamins & iron. The medical issues the patient is following up fo r include All identified problems below, blood sugar issues, high blood pressure and high cholesterol. fasting blood sugars :.Encounter Diagnosis: Type II Diabetes,controlled (250.00), Vitamin D deficiency, unspecified (268.9), Depression (311.), Hyperlipidemia, Mixed (272.2) [facility] Office Visit On: 31-Jul-2012 15:16 Encounter Reason: Disablity formsEncounter Diagnosis: LEUKEMIA, 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), Depression (311.), Anxiety (300.00), Breast Cancer (174.9) End: 31-Jul-2012 16:04 [facility] Office Visit On: 05-Jun-2012 13:13 Encounter Reason: Follow up for chronic medical issues - The patient feels well with minor complaints, has decreased energy level and is sleeping well. Patient has been compliant with instructions. Current medication use End: 05-Jun-2012 14:20 : no side effects and compliant with dosing regimen. Patient sleeps 8 hours per night. Nutrition: balanced diet and no supplemental vitamins & iron. The medical issues the patient is following up fo r include All identified problems below, blood sugar issues, high blood pressure and high cholesterol. fasting blood sugars :.Encounter Diagnosis: Hyperlipidemia, Mixed (272.2), LEUKEMIA, 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), Vitamin D deficiency, unspecified (268.9), Type II Diabetes,controlled (250.00), Asthma (493.11), Depression (311.) [facility] Lab Order On: 30-Mar-2012 12:14 Encounter Diagnosis: Vitamin D deficiency, unspecified (268.9) End: 30-Mar-2012 12:15 [facility] Phone Encounter On: 23-Feb-2012 14:58 Encounter Diagnosis: Vitamin D deficiency, unspecified (268.9) End: 23-Feb-2012 15:01 [facility] Office Visit On: 21-Feb-2012 10:33 Encounter Reason: Follow up for chronic medical issues - The patient feels well with minor complaints, has good energy level and is sleeping well. Patient has been compliant with instructions. Current medication use: no End: 21-Feb-2012 13:09 side effects and compliant with dosing regimen. Patient sleeps 6 hours per night. Nutrition: balanced diet and no supplemental vitamins & iron. The medical issues the patient is following up for inc lude All identified problems below, blood sugar issues, high blood pressure and high cholesterol. blood pressure range :, fasting blood sugars : and weight :.Encounter Diagnosis: Type II Diabetes,controlled (250.00), Vitamin D deficiency, unspecified (268.9), Asthma (493.11), Hypertension 401.1 (Renamed from Hypertension (401.0)), LEUKEMIA, 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) [facility] Phone Encounter On: 04-Jan-2012 14:09 Encounter Diagnosis: Type II Diabetes,controlled (250.00) End: 04-Jan-2012 14:10 [facility] Office Visit On: 19-Nov-2011 14:53 Encounter Reason: Follow up tests - Date: (3/21/12 labs and 11-13-11)., [ADDITIONAL REASON] Follow up for chronic medical issues - The patient feels well with minor complai End: 19-Nov-2011 17:34 nts (i am just so tired even before the infection stuff -- ), has decreased energy level and is sleeping poorly. Patient has been compliant with instructions. Current medication use: no side effects and compliant with dosing regimen. Patient sleeps 6 hours per night. Nutrition: balanced diet and no supplemental vitamins & iron. The medical issues the patient is following up for include All identif ied problems below, asthma, blood sugar issues and high blood pressure. blood pressure range :, fasting blood sugars : and weight :. Encounter Diagnosis: LEUKOPENIA, NOS (288.0), Type II Diabetes,uncontrolled (250.02), Otitis media (382.9), Vitamin D deficiency, unspecified (268.9), Hyperlipidemia, Mixed (272.2), Hypertension 401.1 (Renamed from Hypertension (401.0)) [facility] Phone Encounter On: 16-Nov-2011 17:12 Encounter Diagnosis: LEUKOPENIA, NOS (288.0) End: 16-Nov-2011 17:14 [facility] Annotation/Addendum On: 27-Oct-2011 8:48 Encounter Diagnosis: Otalgia, unspecified (388.70) End: 27-Oct-2011 16:39 [facility] Office Visit On: 26-Oct-2011 7:59 Encounter Reason: Follow up acute care visit - The patient feels the same and worsening. Patient has been compliant with instructions. Current medication use: no side effects and compliant with dosing regimen (finished Z End: 26-Oct-2011 8:21 Tray). The medical issues the patient is following up for include All identified problems below and other (viral inf).Encounter Diagnosis: Eustachian tube dysfunction (381.81), Otalgia, unspecified (388.70), Otitis externa (380.10) [facility] Office Visit On: 21-Oct-2011 10:48 Encounter Reason: Sinusitis/ - The duration of the symptoms are 3 days The course has been constant. The sinusitis/ has no relieving factors. Associated features include The symptoms have been associated with cough, ear End: 21-Oct-2011 11:44 pain, nasal discharge/stuffy nose and sinus pain. Note for Sinusitis/: alot yellow drainageEncounter Diagnosis: Viral infection, unspecified (079.99), Vitamin D deficiency, unspecified (268.9), Type II Diabetes,uncontrolled (250.02) [facility] Office Visit On: 09-Aug-2011 15:45 Encounter Reason: Follow up for chronic medical issues - The patient feels well with no complaints, has good energy level and is sleeping well. Patient has been compliant with instructions. Current medication use: no harsh End: 09-Aug-2011 16:40 e effects, compliant with dosing regimen and considered effective by patient. Patient sleeps 7 hours per night. Nutrition: balanced diet. The medical issues the patient is following up for include All i dentified problems below, asthma, blood sugar issues (DM), high blood pressure, high cholesterol and other (Vit D deficency, anxiety ). fasting blood sugars : (122).Encounter Diagnosis: Type II Diabetes,uncontrolled (250.02), Depression (311.), Hyperlipidemia, Mixed (272.2), Asthma (493.11) [facility] Office Visit On: 06-Aug-2011 8:38 [facility] End: 06-Aug-2011 9:07 Office Visit On: 02-Jul-2011 14:27 Encounter Reason: Back Pain - This condition occurred without any known injury. The injury involved the lower back. The last clinic visit was 2 month(s) ago. No changes in management were made at the last visit. Symptoms End: 02-Jul-2011 15:15 include back pain. Symptoms are located in the symmetrically. There is no radiation. The patient describes the pain as aching. Onset was gradual. The symptoms occur intermittently. The patient describe s symptoms as moderate in severity and worsening. Symptoms are exacerbated by standing, sitting, prolonged standing and prolonged sitting. Symptoms are not relieved by rest or ice. Associated symptoms i nclude leg numbness and leg weakness. The patient is not currently being treated for this problem., [ADDITIONAL REASON] Follow up, Diagnostic Procedure Results - Date: (05/31/11 x-ray). , [ADDITIONAL REASON] Ear Discharge - The history today is reported by the patient. The last clinic visit was 2 week(s) ago. Symptoms include ear pain. Symptoms are located in the left ear. Encounter Diagnosis: Acne, NOS (706.1), LOW BACK PAIN WITH RADICULOPATHY (724.4) [facility] Office Visit On: 31-May-2011 14:43 Encounter Reason: Back Pain - This condition occurred without any known injury. The injury involved the lower back. The last clinic visit was 2 month(s) ago. No changes in management were made at the last visit. Symptoms End: 31-May-2011 15:40 include back pain. Symptoms are located in the symmetrically. There is no radiation. The patient describes the pain as aching. Onset was gradual. The symptoms occur intermittently. The patient describe s symptoms as moderate in severity and worsening. Symptoms are exacerbated by standing, sitting, prolonged standing and prolonged sitting. Symptoms are not relieved by rest or ice. Associated symptoms i nclude leg numbness and leg weakness. The patient is not currently being treated for this problem.Encounter Diagnosis: LOW BACK PAIN WITH RADICULOPATHY (724.4) [facility] Office Visit On: 10-May-2011 15:16 Encounter Reason: Follow up for chronic medical issues - The patient feels well with minor complaints, has good energy level and is sleeping well. Patient has been compliant with instructions. Current medication use: no End: 10-May-2011 16:06 side effects and compliant with dosing regimen. Patient sleeps 7 hours per night. Nutrition: balanced diet and supplemental vitamins. The medical issues the patient is following up for include All ident ified problems below, blood sugar issues, high blood pressure and high cholesterol. fasting blood sugars :.Encounter Diagnosis: Hypertension 401.1 (Renamed from Hypertension (401.0)), Hyperlipidemia, Mixed (272.2), Type II Diabetes,uncontrolled (250.02), Vitamin D deficiency, unspecified (268.9) [facility] Office Visit On: 29-Mar-2011 11:45 Encounter Reason: Foot Problem - This condition occurred without any known injury. The injury involved the right foot. This occurred 1 day(s) ago. The last clinic visit was 1 day(s) ago. No changes in management were mad End: 29-Mar-2011 12:07 e at the last visit. Symptoms include foot pain and foot swelling. Symptoms are located in the right foot. Onset was sudden week(s) after the injury. The symptoms occur constantly. The patient describes symptoms as severe and worsening. Symptoms are exacerbated by weight bearing, walking and standing, while symptoms are not exacerbated by tight shoes. Symptoms are not relieved by immobilization, rest or analgesics. Current treatment includes rest, ice and elevation.Encounter Diagnosis: Ankle/Foot Pain (719.47) [facility] Office Visit On: 03-Feb-2011 15:21 Encounter Reason: Follow up for chronic medical issues - The patient feels well with minor complaints, has good energy level and is sleeping well. Patient has been compliant with instructions. Current medication use: no End: 03-Feb-2011 16:05 side effects and compliant with dosing regimen. Patient sleeps 7 hours per night. Nutrition: balanced diet and supplemental vitamins. The medical issues the patient is following up for include All ident ified problems below, asthma, depression, high blood pressure and high cholesterol. blood pressure range :, fasting blood sugars : and weight :.Encounter Diagnosis: Type II Diabetes,uncontrolled (250.02), Hyperlipidemia, Mixed (272.2), Vitamin D deficiency, unspecified (268.9), Asthma (493.11) [facility] Phone Encounter On: 23-Nov-2010 10:46 Encounter Diagnosis: ABNORMAL FINDINGS NEC (796.9) End: 23-Nov-2010 10:58 [facility] Office Visit On: 12-Nov-2010 11:50 Encounter Reason: Lumps - The onset of the lumps has been sudden and has been occurring in a persistent pattern for 1 week. The course has been constant. The lumps are described as mild. Note for Lumps: I noticed a lum End: 12-Nov-2010 12:39 p on the rt side of my collar bone and with my hx I thought I should get this checked outEncounter Diagnosis: Breast Cancer (174.9), DEFORMITY, ACQUIRED, CHEST/RIB (738.3) [facility] Office Visit On: 30-Oct-2010 12:54 Encounter Diagnosis: Asthma (493.11) End: 30-Oct-2010 13:46 [facility] Office Visit On: 15-Oct-2010 11:42 Encounter Reason: Follow up for chronic medical issues - The patient feels well with no complaints, has good energy level and is sleeping well. Patient has been compliant with instructions. Current medication use: no harsh End: 15-Oct-2010 12:59 e effects. Patient sleeps 7 hours per night. Impact of disease: no overall impact. Nutrition: balanced diet and supplemental vitamins. The medical issues the patient is following up for include blood bhakta gar issues, high blood pressure and high cholesterol. fasting blood sugars :, postprandial sugars :, evening sugars : and peak flows.Encounter Diagnosis: Breast Cancer (174.9), Hyperlipidemia, Mixed (272.2), Asthma (493.11), Type II Diabetes,uncontrolled (250.02) [facility] Office Visit On: 20-Jul-2010 15:52 Encounter Reason: Follow up for chronic medical issues - The patient feels well with minor complaints, has good energy level and is sleeping well. Patient has been compliant with instructions. Current medication use: no End: 20-Jul-2010 18:13 side effects and compliant with dosing regimen. Patient sleeps 7 hours per night. Nutrition: balanced diet and supplemental vitamins. The medical issues the patient is following up for include All ident ified problems below, blood sugar issues, high blood pressure and high cholesterol. fasting blood sugars :.Encounter Diagnosis: Type II Diabetes,uncontrolled (250.02), Breast Cancer (174.9), Asthma (493.11), Hyperlipidemia, Mixed (272.2), Vitamin D deficiency, unspecified (268.9), Hypertension 401.1 (Renamed from Hypertension (401.0)) [facility] Office Visit On: 15-Apr-2010 14:55 Encounter Reason: Follow up for chronic medical issues - The patient feels well with minor complaints ,has good energy level and is sleeping well. Patient has been compliant with instructions. Current medication use: no End: 15-Apr-2010 16:26 side effects and compliant with dosing regimen. Nutrition: inappropriate diet and supplemental vitamins. The medical issues the patient is following up for include All identified problems below ,blood s ugar issues ,high blood pressure and high cholesterol. fasting blood sugars :. Encounter Diagnosis: Type II Diabetes,uncontrolled (250.02), Hyperlipidemia, Mixed (272.2), Hypertension 401.1 (Renamed from Hypertension (401.0)), Asthma (493.11), Anxiety (300.00) [facility] Office Visit On: 12-Jan-2010 15:48 Encounter Reason: Follow up for chronic medical issues - The patient feels well with minor complaints ,has good energy level and is sleeping well. Patient has been compliant with instructions. Current medication use: no End: 12-Jan-2010 16:58 side effects and compliant with dosing regimen. Patient sleeps 6 hours per night. Nutrition: balanced diet and supplemental vitamins. The medical issues the patient is following up for include All ident ified problems below ,asthma ,blood sugar issues ,depression ,high blood pressure and high cholesterol. fasting blood sugars : (good). Encounter Diagnosis: Type II Diabetes,uncontrolled (250.02), Hypertension 401.1 (Renamed from Hypertension (401.0)) , Hyperlipidemia, Mixed (272.2), Breast Cancer (174.9) [facility] Office Visit On: 08-Oct-2009 15:43 Encounter Reason: Follow up for chronic medical issues - The patient feels well with minor complaints ,has good energy level and is sleeping well. Patient has been compliant with instructions. Current medication use: no End: 09-Oct-2009 9:53 side effects and compliant with dosing regimen. Patient sleeps 7 hours per night. Nutrition: balanced diet and supplemental vitamins. The medical issues the patient is following up for include All ident ified problems below ,blood sugar issues ,high blood pressure and high cholesterol. fasting blood sugars : (120 to 140). Encounter Diagnosis: Type II Diabetes,uncontrolled (250.02), Hypertension 401.1 (Renamed from Hypertension (401.0)), Hyperlipidemia, Mixed (272.2), Asthma (493.11) [facility] Office Visit On: 18-Aug-2009 17:21 Encounter Reason: Sinusitis/ - The duration of the symptoms are 3 days The course has been gradually worsening. The sinusitis/ has no relieving factors. Associated features include The symptoms have been associated with End: 18-Aug-2009 17:25 cough ,ear pain ,sinus pain and sore throat, while the symptoms have not been associated with teeth pain. No previous evaluations were reported. Encounter Diagnosis: Acute sinusitis, unspecified (461.9) [facility] Office Visit On: 30-May-2009 12:56 Encounter Reason: Follow up for chronic medical issues - The patient feels well with no complaints ,has good energy level and is sleeping well. Patient has been compliant with instructions. Current medication use: no harsh End: 30-May-2009 14:27 e effects ,compliant with dosing regimen and considered effective by patient. Patient sleeps 6 hours per night. Nutrition: balanced diet. The medical issues the patient is following up for include All i dentified problems below ,asthma ,blood sugar issues (DM) ,depression (anxiety) ,high blood pressure and high cholesterol. blood pressure range : (117/72) and fasting blood sugars : (161). Encounter Diagnosis: Type II Diabetes,controlled (250.00), Hypertension 401.1 (Renamed from Hypertension (401.0)), Hyperlipidemia, Mixed (272.2) [facility] Office Visit On: 22-May-2009 11:43 Encounter Reason: Skin changes - The onset of the skin changes has been sudden (this am) and they have been occurring in a persistent pattern for 1 days. The course has been increasing. The skin changes are described as mild. Encounter Diagnosis: End: 22-May-2009 12:05 Cellulitis of arm (682.3) [facility] Office Visit On: 07-Mar-2009 10:13 Encounter Reason: Follow up acute care visit - The patient feeling better since last seen and improving. Patient has been compliant with instructions. Current medication use: no side effects ,compliant with dosing regime End: 07-Mar-2009 10:32 n and considered effective by patient. Patient sleeps 7 hours per night. Impact of disease: emotional impact-mild. Nutrition: balanced diet. The medical issues the patient is following up for include cellulitis (rt. arm ). Encounter Diagnosis: Cellulitis of arm (682.3) [facility] Office Visit On: 06-Mar-2009 15:30 Encounter Reason: Skin changes - The onset of the skin changes has been sudden and they have been occurring in a persistent pattern for 1 days. The course has been increasing. The skin changes are described as severe. Encounter Diagnosis: End: 06-Mar-2009 16:14 Cellulitis of arm (682.3) [facility] Office Visit On: 27-Feb-2009 12:55 Encounter Reason: Follow up for chronic medical issues - The patient feels well with no complaints ,has good energy level and is sleeping well. Patient has been compliant with instructions. Current medication use: no harsh End: 27-Feb-2009 13:24 e effects ,compliant with dosing regimen and considered effective by patient. Patient sleeps 7 hours per night. Impact of disease: emotional impact-mild. Nutrition: balanced diet and supplemental vitami ns. The medical issues the patient is following up for include asthma ,blood sugar issues ,cardiac issues ,depression (anxiety ) ,high blood pressure ,high cholesterol and other (hx. breast cancer, obesity ). 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 Patient has been compliant with instructions. Current medication use: no side effects. Patient sleeps 8 hours per night. Impact o End: 05-Dec-2008 10:09 f disease: no overall impact. Nutrition: balanced diet. The medical issues the patient is following up for include cellulitis. Encounter Diagnosis: Cellulitis of arm (682.3) [facility] Office Visit On: 29-Nov-2008 9:41 Encounter Reason: Follow up hospital - Reason for ER visit: note: (went in tuesday and was out on for cellulitis opn the right arm). The patient feels well with minor complaints ,has good energy level and is sleeping End: 29-Nov-2008 9:56 well. Patient has been compliant with instructions. Current medication use: no side effects and compliant with dosing regimen. Patient sleeps 7 hours per night. Nutrition: balanced diet and no supplemental vitamins & iron. Encounter Diagnosis: Cellulitis of arm (682.3) [facility] Office Visit On: 15-Nov-2008 11:49 Encounter Reason: Follow up for chronic medical issues - The patient feels well with minor complaints ,has decreased energy level and is sleeping poorly. Patient has been compliant with instructions. Current medication u End: 15-Nov-2008 13:03 se: no side effects and compliant with dosing regimen. Patient sleeps 6 hours per night. Nutrition: inappropriate diet and no supplemental vitamins & iron. The medical issues the patient is followin g up for include All identified problems below ,high blood pressure and high cholesterol. fasting blood sugars : (103 to 140). Encounter Diagnosis: Type II Diabetes,controlled (250.00), Benign essential hypertension (401.1), Hyperlipidemia, Mixed (272.2), Asthma (493.11), Anxiety (300.00) [facility] Office Visit On: 19-Aug-2008 13:52 Encounter Reason: Follow up for chronic medical issues - The patient feels well with minor complaints ,has good energy level and is sleeping well. Patient has been compliant with instructions. Current medication use: no End: 19-Aug-2008 14:43 side effects and compliant with dosing regimen. Patient sleeps 6 hours per night. Nutrition: inadequate caloric intake and supplemental vitamins. The medical issues the patient is following up for inclu de All identified problems below ,blood sugar issues ,high blood pressure and high cholesterol. fasting blood sugars :. 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 The sinusitis/ has no relieving factors. Associated features include The symptoms have been associated with cough ,na End: 10-Jul-2008 13:28 miladis discharge/stuffy nose and sinus pain, while the symptoms have not been associated with sore throat. No previous evaluations were reported. Encounter Diagnosis: Acute sinusitis, unspecified (461.9), ASTHMA, UNSPECIFIED, WITH ACUTE EXACERBATION (493.92), Abnormal Lung Sounds/Rales (786.7) [facility] Office Visit On: 17-May-2008 11:28 Encounter Diagnosis: Type II Diabetes,controlled (250.00) End: 17-May-2008 13:29 [facility] Office Visit On: 26-Apr-2008 11:10 Encounter Reason: Follow up for chronic medical issues - The patient feels well with minor complaints ,has good energy level and is sleeping well. Patient has been compliant with instructions. Current medication use: no End: 26-Apr-2008 12:38 side effects and compliant with dosing regimen. Patient sleeps 6 hours per night. Nutrition: inappropriate diet and supplemental vitamins. The medical issues the patient is following up for include All identified problems below ,blood sugar issues ,gastric reflux ,high blood pressure and high cholesterol. fasting blood sugars :. Encounter Diagnosis: Type II Diabetes,controlled (250.00), Benign essential hypertension (401.1), Hyperlipidemia, Mixed (272.2), Chest pain (786.59) [facility] Nurse Visit (Non-[place]) On: 05-Feb-2008 15:57 Encounter Diagnosis: Type II Diabetes,uncontrolled (250.02) End: 05-Feb-2008 16:08 [facility] Office Visit On: 19-Jan-2008 10:07 Encounter Reason: Follow up for chronic medical issues - The patient feels well with minor complaints ,has good energy level and is sleeping well. Patient has been compliant with instructions. Current medication use: exp End: 19-Jan-2008 10:58 eriencing side effects (the glucophage made her have mood swings so I am not on it.) and compliant with dosing regimen. Patient sleeps 7 hours per night. Nutrition: balanced diet and supplemental vitami ns. The medical issues the patient is following up for include All identified problems below ,asthma ,blood sugar issues ,depression ,high blood pressure and high cholesterol. blood pressure range : and evening sugars : (178 to 200's). Encounter Diagnosis: Type II Diabetes,controlled (250.00), Benign essential hypertension (401.1), Hyperlipidemia, Mixed (272.2), Asthma (493.11) [facility] Historical Summary On: 01-Dec-2007 16:07 [facility] End: 01-Dec-2007 16:07 Office Visit On: 08-Nov-2007 11:18 Encounter Reason: Follow up for chronic medical issues - The patient feels well with minor complaints (cough since Jul) ,has decreased energy level and is sleeping poorly. Patient has been compliant with instructions. Cu End: 08-Nov-2007 12:47 rrent medication use: no side effects and compliant with dosing regimen. Patient sleeps 6 hours per night. Nutrition: inappropriate diet and supplemental vitamins. The medical issues the patient is foll owing up for include All identified problems below ,blood sugar issues ,gastric reflux ,high blood pressure and high cholesterol. blood pressure range : and fasting blood sugars :. Encounter Diagnosis: Type II Diabetes,controlled (250.00), BRONCHITIS, NOT SPECIFIED ACUTE OR CHRONIC (490.), Benign essential hypertension (401.1), Asthma (493.11), Hyperlipidemia (272.4), Cough (786.2), Abnormal Lung Sounds/Rales (786.7) [facility] Historical Summary On: 24-Aug-2007 8:11 [facility] End: 24-Aug-2007 8:12 Office Visit On: 03-Aug-2007 15:11 Encounter Reason: Follow up, Laboratory Test Results - Date: (08.01.07 on face sheet under 05.10.07). , [ADDITIONAL REASON] Follow up for chronic medical issues - The patient feels well with minor complai End: 03-Aug-2007 16:57 nts (has pain on top part of left foot) ,has good energy level and is sleeping well. Patient has been compliant with instructions. Current medication use: no side effects. Patient sleeps 9 hours per nig ht. Nutrition: inappropriate diet ,no supplemental vitamins & iron and low salt diet. Encounter Diagnosis: Type II Diabetes,controlled (250.00), Benign essential hypertension (401.1), Hyperlipidemia, Mixed (272.2), Asthma (493.11), Foot pain (729.5) [facility] Office Visit On: 12-Jun-2007 13:31 Encounter Reason: Follow up Meds - The patient feels well with minor complaints ,has good energy level and is sleeping well. Patient has been compliant with instructions. Current medication use: no side effects and compl End: 12-Jun-2007 13:51 iant with dosing regimen. Patient sleeps 7 hours per night. Nutrition: balanced diet and supplemental vitamins. Encounter Diagnosis: Type II Diabetes,uncontrolled (250.02), Benign essential hypertension (401.1) [facility] Office Visit On: 10-May-2007 12:13 Encounter Reason: Follow up, Diagnostic Procedure Results - Diagnostic tests include ECHO (scanned on face sheet 05/02/07). Date:. , [ADDITIONAL REASON] Follow up, Laboratory Test Results - Date: (04/22/07). Encounter Diagnosis: End: 10-May-2007 15:36 Type II Diabetes,uncontrolled (250.02), Hypertension (401.0), Hyperlipidemia, Mixed (272.2), Breast Cancer (174.9) [facility] Office Visit On: 14-Apr-2007 7:46 Encounter Reason: Follow up, Diagnostic Procedure Results - Diagnostic tests include other (stress test). Date: (04-07-07 on face sheet). , [ADDITIONAL REASON] Follow up, Laboratory Test Results - Lab results: other (review all labs). Date: End: 14-Apr-2007 9:15 (04/08/07). Encounter Diagnosis: Hyperlipidemia, Mixed (272.2), Fatigue (780.79), Hyperglycemia (790.29) [facility] Office Visit On: 03-Apr-2007 15:07 Encounter Reason: Follow up for chronic medical issues - The patient feels well with minor complaints (fatigue) ,has decreased energy level and is sleeping poorly (broken thinks d/t to hot flashes). Patient has been comp End: 03-Apr-2007 16:03 liant with instructions. Current medication use: experiencing side effects (thinks effexor is making tired) ,compliant with dosing regimen and considered effective by patient. Patient sleeps 6 hours per night. Impact of disease: no overall impact. Nutrition: balanced diet. The medical issues the patient is following up for include All identified problems below ,asthma ,depression ,high blood pressure and high cholesterol. blood pressure range : (148/90). Encounter Diagnosis: Hypertension (401.0), Hyperlipidemia, Mixed (272.2), Fatigue (780.79), Chest pain (786.59) [facility] Office Visit On: 08-Dec-2006 8:02 Encounter Reason: Sinusitis/ - The duration of the symptoms are 4 days The course has been worsening. The sinusitis/ has no relieving factors. Associated features include The symptoms have been associated with nasal disc End: 08-Dec-2006 8:37 harge/stuffy nose (yellow/green) and sinus pain, while the symptoms have not been associated with cough ,ear pain ,purulent nasal discharge ,red eyes ,sore throat ,swollen lymph glands or teeth pain. No previous evaluations were reported. allergies. , [ADDITIONAL REASON] Follow up Meds - The patient feels well with minor complaints (had surgery last week. getting sinus inf.) ,has good energy level and is sleeping well. Patient has been compliant wit h instructions. Current medication use: experiencing side effects (larthargic, lightheadness) ,compliant with dosing regimen and considered effective by patient. Patient sleeps 8 hours per night. Nutrition: balanced diet. Encounter Diagnosis: Hypertension (401.0), Fatigue (780.79), Acute sinusitis, unspecified (461.9) [facility] Office Visit On: 31-Oct-2006 10:23 Encounter Reason: Skin lesion - The skin lesion appeared gradually and has been occurring for years. It has been increasing in size. The skin lesion is characterized as red. The skin lesion is located on the face (RIGHT SIDE OF NOSE). 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 blood pressure range : (145/80 ). Encounter Diagnosis: Hypertension (401.0) [facility] Office Visit On: 29-Sep-2006 15:10 Encounter Reason: Skin lesion - The skin lesion appeared gradually (and irritated from jewey, sweaters,turtlenecks) and has been occurring for years. It has been increasing in size. The skin lesion is located on the neck. Encounter Diagnosis: End: 29-Sep-2006 15:49 Skin Tag, Irritated (701.9) [facility] Office Visit On: 19-Sep-2006 15:13 Encounter Reason: new patient female physical - Last seen more than 1 year ago. General health: feels well with no complaints. The patient's appetite is normal. Nutrition: normal/adequate. Exercises 2 (walks occasionally End: 19-Sep-2006 16:27 walks 1-2 days a week) days per week. Sleeps on average 8 hours per night. Current emotional problems include anxiety and depression (h/o of not current). Encounter Diagnosis: Hypertension (401.0), Hyperlipidemia (272.4), Asthma (493.11), Depression (311.), Anxiety (300.00) [facility] Payers Lisette MENARD/Bobbi Combs; a guarantor
--- OUTSIDE RECORDS SUMMARY | 2018-11-18 16:20 | XMS RPT_ITS | Continuity of Care Document ---
:1955 Author Organization [facility] Address [address] [facility] [address] [place] [address] Phone Care Team Providers Name Role Phone Kalyn Forbes DO Unavailable Dr. Fidencio Tobar MD Unavailable Dr. Bethany Hutchison Unavailable Kalyn Forbes DO Unavailable Jazmyn CAMPBELL Jamari Chris Unavailable Maxi Valadez Unavailable Unavailable VENKAT Arthur Unavailable Unavailable Brenda Jones Unavailable Unavailable Madhuri De La Paz Unavailable Unavailable Manolo CRAWFORDLavonne Unavailable Unavailable Unavailable Problems Name Dates Details Acne, NOS (706.1) Comments: L ear ext canal Status: Active Acute sinusitis, unspecified (J01.90, 461.9) Status: Active Allergic Rhinitis (J30.9, 477.9) Status: Active Anxiety (F41.9, 300.00) Status: Active Asthma (J45.909, 493.90) Status: Active BMI 27.0-27.9,adult (Z68.27, V85.23) Status: Active BRONCHITIS, NOT SPECIFIED ACUTE OR CHRONIC (490.) (J40, 490) Status: Active Controlled diabetes mellitus type II without complication (E11.9, 250.00) Status: Active Cough (R05, 786.2) Status: Active Decreased ROM of right shoulder (M25.611, 719.51) Status: Active DEFORMITY, ACQUIRED, CHEST/RIB (738.3) Status: Active Depression (F32.9, 311) Comments: stalbe Status: Active Diabetes type 2, uncontrolled (E11.65, 250.02) Comments: big jump -pt thnks holiday related/ stress huge lately will do laura for stress cortisol reduction , eat clean and exercise again and if doenst improve next visit will chg meds Status: Active Dizziness (R42, 780.4) Comments: currently described as vertigo -- if persistent pt will let me know -- PT for deanne-- or mri to assure no acoustic neuroma Status: Active Dysuria (R30.0, 788.1) Comments: cont to drink lt8ibicgfr juice Status: Active Eustachian tube dysfunction (H69.80, [...] chemo at end of march and masci thn they will resolve-- Status: Active Lung infiltrate (R91.8, 793.19) Status: Active Mass of upper lobe of right lung (R91.8, 786.6) Status: Active Microalbuminuria (R80.9, 791.0) Comments: on Peter Status: Active Mixed hyperlipidemia (E78.2, 272.2) Comments: didnt tolerate lipitor from elev liver fcnlil uncontrolled pt will work on diet and exericse Status: Active Non-smoker (Z78.9, V49.89) Status: Active Otalgia, unspecified ear (H92.09, 388.70) Status: Active Other specified viral infection, in conditions classified elsewhere and of unspecified site (B97.89, 079.89) Comments: start off with karan if not better day 7-10 then get script Status: Active Right shoulder pain (M25.511, 719.41) Status: Active Scleral icterus (R17, 782.4) Status: Active Unspecified Diagnosis Status: Active Unspecified Diagnosis Status: Active Vitamin D deficiency, unspecified (E55.9, 268.9) Comments: increaze 5-6,000 daily Status: Active Medications Name Dates Details Advair Diskus 100-50 MCG/DOSE Inhalation Aerosol Powder Breath Activated 1 Misc bid for 0 days Quantity: 1 {Canister} Refills: 5 Ordered:30-Apr-2016 Chris Forbes DO, DO, Kathleen Start : 30-Apr-2016 Active Doxycycline Monohydrate 100 MG Oral Tablet 1 (one) Tablet bid for 7 days Quantity: 14 {Tablet} Refills: 0 Ordered:19-Sep-2018 Lavonne French CNP Start : 19-Sep-2018 Active Effexor XR 75 MG Oral Capsule [...] DO, DO, Kathleen Start : 13-Mar-2018 Active Meloxicam 7.5 MG Oral Tablet 1 (one) Tablet PO QD for 30 days Quantity: 30 {Tablet} Refills: 0 Ordered:07-Sep-2018 Brenda Jones Start : 07-Sep-2018 Active Ozempic 1 MG/DOSE Subcutaneous Solution Pen-injector 1 (one) Milligram Milligram qweek for 0 days Quantity: 3 {Box} Refills: 3 Ordered:25-Aug-2018 Maxi Valadez Start : 25-Aug-2018 Active Comments:3month supply Proventil HFA 108 (90 Base) MCG/ACT Inhalation Aerosol Solution 2 (two) Aerosol Soln Aerosol Soln Q 6hr/PRN for 0 days Quantity: 1 {Inhaler} Refills: 0 Ordered:07-Oct-2017 Brenda Arthur LPN Start : 07-Oct-2017 Active Victoza 18 MG/3ML Subcutaneous Solution Pen-injector 1.8 mg qd sc for 90 days Quantity: 3 {Each} Refills: 3 Ordered:08-May-2018 Chris Forbes DO, DO, Kathleen Start : 08-May-2018 Active ACYCLOVIR, 400MG (Oral [...] days Quantity: 20 {Tablet} Refills: 0 Ordered:23-Apr-2015 Roselinecici YVETTELavonne Start : 23-Apr-2015 End : 03-May-2015 Inactive [...] End : 11-Jul-2015 Inactive Comments:std process DRISDOL, 82034GLUS (Oral Capsule) 1 Capsule qweek for 360 [...] qd for 30 days Refills: 0 Ordered:02-Jul-2011 Chris Forbes DO, DO, Kathleen Start : 10-May-2011 End : 09-Jun-2011 Inactive [...] Start : 08-Nov-2007 End : 19-Jan-2008 Inactive Levaquin 750 MG Oral Tablet 1 (one) Tablet daily for 7 days Quantity: 7 {Tablet} Refills: 0 Ordered:18-Sep-2018 CORBIN Kwok Start : 18-Sep-2018 End : 18-Sep-2018 Inactive LEVAQUIN, 500MG (Oral Tablet) 1 Tablet [...] for 0 days Refills: 0 Ordered:08-Oct-2009 Brenda Arthurnactive Tamoxifen Citrate 10 MG Oral Tablet (10 [...] End : 19-Nov-2011 Inactive Comments:ten VITAMIN D, 94099WBRC (Oral Capsule) 1 q week (71042 U) Inactive VITAMIN D3, 2000UNIT (Oral Capsule) 1 (one) Capsule Capsule qd for 120 days Refills: 0 Ordered:07-Feb-2014 Brenda Arthur LPN Start : 01-Oct-2013 End : 29-Jan-2014 Inactive VITAMIN D3, 51103HVTG (Oral Capsule) 1 Capsule weekly for 0 [...] days Quantity: 20 {Tablet} Refills: 0 Ordered:30-Apr-2016 Slarb 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Fatuma Start : 25-Mar-2016 End : 30-Apr-2016 Discontinued [...] (I10, 401.1) Status: Resolved as of 27-Feb-2009 BMI 26.0-26.9,adult (Z68.26, V85.22) Status: Inactive as of 25-Aug-2018 BMI 28.0-28.9,adult (Z68.28, V85.24) Status: Inactive as of 25-Aug-2018 Cellulitis (L03.90, 682.9) Comments: patient phone call sat- small area on arm red and she has hx of cellulitis- chemo last week as far as she knows recent white count normal- told her to go to er if worse fever feels ill- ;which she felt fine and no fever now-called to [facility] in [place] Status: Inactive as of 30-Mar-2013 Cellulitis of [...] Comments: 02/12/13 Tonsillectomy Completed Date Value Details 14-Sep-2018 Chest WITH Contrast Result: Comments: See Note; NOTES: [facility] Imaging Services [address] [place] [address] Chest WITH Contrast MR#: [id number] Acct: [id number] Name: LAZARA LARA Rep #: [id number] : 1955 F 62 From: Artemio Guerra PCP: Kalyn Forbes DO Status: REG CLI Study: Chest WITH Contrast Date of Exam: 09/14/18 Exam# [id number] Ordering Dr: Kalyn Forbes DO STUDY: CT CHES T WITH CONTRAST REASON FOR EXAM: Female, 62 years old. Lung mass RADIATION DOSAGE (If Supplied By Facility): CTDIvol = ( 11.74 ) mGy, DLP = ( 467.67 ) mGycm TECHNIQUE: Transaxial imaging was performe d following intravenous administration of 75ML ml of Isovue 300 contrast material. Individualized dose optimization techniques were used for this CT. COMPARISON: May 31, 2012 FINDINGS: The lungs are expanded. There are groundglass and reticular opacities in the RIGHT upper lung and superior segment of the RIGHT lower lung. These suggest infiltrates. NO discre te nodule or mass is present. There is NO pleural effusion or pneumothorax. Normal heart and pericardium. Normal mediastinum. Normal hilar regions. Normal enhanced pulmonary arteries. Normal aorta arc h and descending thoracic aorta. Normal osseous structures. Images of the upper abdomen demonstrate cholelithiasis. CT/Chest WITH Contrast IMPR ESSION: RIGHT lung pneumonitis. Electronically Signed: Artemio Guerra MD at 6:15 EST , Service support , CC: Kalyn Forbes DO Hairspring Truing Inspector: Signed 07-Sep-2018 Cerv Spine 2 or 3 Views Result: Comments: See Note; NOTES: [facility] Imaging Services [address] [place] [address] Cerv Spine 2 or 3 Views MR#: [id number] Acct: [id number] Name: LAZARA LARA Rep #: [id number] : 1955 F 62 From: Aleksandr Velasquez DO PCP: Kalyn Forbes DO Status: REG CLI Study: Cerv Spine 2 or 3 Views Date of Exam: 09/07/18 Exam# [id number] Ordering Dr: Brenda Jones PROPELLANT CHARGE LOADER-Thee STUDY: X-RAY - CERVICAL SPINE REASON FOR EXAM: Female, 62 years old. Back pain. TECHNIQUE: 3 view(s) of the cervical spine were obtained. COMPARISON: None FINDINGS: The re are degenerative changes of the anterior atlantoaxial articulation. Normal odontoid process. Normal cervical lordosis. There is mild endplate spondylosis and disc space narrowing at C6-7. The remain william of the disc spaces appear normal. There is no evidence of acute fracture or loss of vertebral axial height.. There is maintenance of normal alignment The soft tissue structures are unremarkable. __ RAD/Cerv Spine 2 or 3 Views IMPRESSION: Mild degenerative changes of the cervical spine. Electronically Signed: Aleksandr Velasquez DO at 23:2 3 EST Tel [phone], Service support , CC: JERRELL Jones; Kalyn Forbes DO Hairspring Truing Inspector: Signed 07-Sep-2018 Cerv Spine 2 or 3 Views Result: Comments: See Note; NOTES: [facility] Imaging Services [address] [place] [address] Cerv Spine 2 or 3 Views MR#: [id number] Acct: [id number] Name: LAZARA LARA Rep #: [id number] : 1955 F 62 From: Aleksandr Velasquez DO PCP: Kalyn Forbes DO Status: REG CLI Study: Cerv Spine 2 or 3 Views Date of Exam: 09/07/18 Exam# [id number] Ordering Dr: Brenda Jones STUDY: X-RAY - CERVICAL SPINE REASON FOR EXAM: Female, 62 years old. Back pain. TECHNIQUE: 3 view(s) of the cervical spine were obtained. COMPARISON: None FINDINGS: The re are degenerative changes of the anterior atlantoaxial articulation. Normal odontoid process. Normal cervical lordosis. There is mild endplate spondylosis and disc space narrowing at C6-7. The remain william of the disc spaces appear normal. There is no evidence of acute fracture or loss of vertebral axial height.. There is maintenance of normal alignment The soft tissue structures are unremarkable. __ RAD/Cerv Spine 2 or 3 Views IMPRESSION: Mild degenerative changes of the cervical spine. Electronically Signed: Aleksandr Velasquez DO at 23:2 3 EST Tel [phone], Service support , CC: JERRELL Jones; Kalyn Forbes DO Hairspring Truing Inspector: Signed 07-Sep-2018 Shoulder min 2 Views Result: Comments: See Note; NOTES: [facility] Imaging Services [address] [place] [address] Shoulder min 2 Views MR#: [id number] Acct: [id number] Name: LAZARA LARA Rep #: [id number] : 1955 F 62 From: Aleksandr Velasquez DO PCP: Kalyn Forbes DO Status: REG CLI Study: Shoulder min 2 Views Date of Exam: 09/07/18 Exam# [id number] Ordering Dr: Brenda Jones STUDY: X-RAY - RIGHT SHOULDER REASON FOR EXAM: Female, 62 years old. Pain. TECHNIQUE: 4 view(s) of the shoulder. COMPARISON: None. FINDINGS: There is mild degenerative arthro sis of the glenohumeral articulation. There is degenerative arthrosis of the acromioclavicular joint without inferior osseous spur formation. Normal acromion. There is no acute fracture, dislocation or destructive osseous pathology. Normal humeral head and visualized proximal humerus. The soft tissue structures are unremarkable. There are surgical clips in the axilla. There is a questionable infiltr ate in the lateral right upper lobe. RAD/Shoulder min 2 Views IMPRESSION: 1. Mild degenerative changes of the shoulder without fracture or dislo cation. 2. Question infiltrate or mass in the right upper lobe. 3. Surgical clips in the right axilla. Electronically Signed: Aleksandr Velasquez DO at 22:37 EST Tel [phone], Service support 09-05 [phone], CC: JERRELL Jones; Kalyn Forbes DO Hairspring Truing Inspector: Signed 07-Sep-2018 Shoulder min 2 Views Result: Comments: See Note; NOTES: [facility] Imaging Services [address] [place] [address] Shoulder min 2 Views MR#: [id number] Acct: [id number] Name: LAZARA LARA Rep #: [id number] : 1955 F 62 From: Aleksandr Velasquez DO PCP: Kalyn Forbes DO Status: REG CLI Study: Shoulder min 2 Views Date of Exam: 09/07/18 Exam# [id number] Ordering Dr: Brenda Jones STUDY: X-RAY - RIGHT SHOULDER REASON FOR EXAM: Female, 62 years old. Pain. TECHNIQUE: 4 view(s) of the shoulder. COMPARISON: None. FINDINGS: There is mild degenerative arthro sis of the glenohumeral articulation. There is degenerative arthrosis of the acromioclavicular joint without inferior osseous spur formation. Normal acromion. There is no acute fracture, dislocation or destructive osseous pathology. Normal humeral head and visualized proximal humerus. The soft tissue structures are unremarkable. There are surgical clips in the axilla. There is a questionable infiltr ate in the lateral right upper lobe. RAD/Shoulder min 2 Views IMPRESSION: 1. Mild degenerative changes of the shoulder without fracture or dislo cation. 2. Question infiltrate or mass in the right upper lobe. 3. Surgical clips in the right axilla. Electronically Signed: Aleksandr Velasquez DO at 22:37 EST Tel [phone], Service support 09-05 [phone], CC: JERRELL Jones; Kalyn Forbes DO Hairspring Truing Inspector: Signed 04-Apr-2015 Spirometry (14067) Comments: restriction disease-technique dependent Result: 01-Apr-2014 Spirometry (98368) Comments: normal Result: Family History Unknown Family [...] smoker Vital Signs Date Test Result Details :00 Temperature 97 f Comments: Method: Temporal Pulse 90 /min Comments: Pattern: Regular Respiration Rate 18 /min Comments: Pattern: Unlabored O2 SAT 97 % Comments: Room air BP Systolic 142 mm[Hg] Comments: Patient Position: Sitting; Cuff Location: Left Arm; Cuff Size: Standard BP Diastolic 84 mm[Hg] Comments: Patient Position: Sitting; Cuff Location: Left Arm; Cuff Size: Standard Weight 165 lb Height 65 in Body Mass Index Calculated 27.46 kg/m2 Body Surface Area Calculated 1.82 m2 :47 Temperature 97.9 f Comments: Method: Temporal Pulse 91 /min Comments: Pattern: Regular Respiration Rate 16 /min Comments: Pattern: Unlabored O2 SAT 97 % Comments: Room air BP Systolic 122 mm[Hg] Comments: Patient Position: Sitting; Cuff Location: Left Arm; Cuff Size: Standard BP Diastolic 78 mm[Hg] Comments: Patient Position: Sitting; Cuff Location: Left Arm; Cuff Size: Standard Weight 165 lb Height 65 in Body Mass Index Calculated 27.46 kg/m2 Body Surface Area Calculated 1.82 m2 :01 Temperature 97.5 f Comments: Method: Temporal Pulse [...] kg/m2 Body Surface Area Calculated 1.89 m2 : Temperature 98.1 f Comments: Method: Oral Pulse [...] Calculated 1.98 m2 Head Circumference 0.00 cm :27 Temperature 98.2 f Comments: Method: Oral Pulse [...] 0.00 cm Results Date Description Value Details 18-Syr-442650:57 CREATININE FINGERSTICK Comments: [facility] [place] [address] EGFR WB 57.0000 mL/min (Abnormal) CREATININE WB 1.0 mg/dL (Normal) Range: 0.55-1.02 27-Kzz-524980:29 LIPOPROTEIN, BLD, BY NMR Comments: PATIENT WAS FASTINGPERFORMED BY: [facility] [id number] ([id number]) LP-IR Score 59 (Abnormal) Comments: INSULIN RESISTANCE MARKER <--Insulin Sensitive Insulin Resistant--> Percentile in Reference PopulationInsulin Resistance ScoreLP-IR Score Low 25th 50th 75th High <27 27 45 63 >63LP-IR Score is inaccurate if patient is non-fasting. .The LP-IR score is a laboratory developed i [facility] that has beenassociated with insulin resistance and diabetes risk and should beused as one component of a physician's clinical assessment. TheLP-IR score listed above has not been cleared by the [place] Food andDrug Administration. LDL Size 20.7 nm (Normal) Comments: INTERPRETATIVE INFORMATION PARTICLE CONCENTRATION AND SIZE <--Lower CVD Risk Highe r CVD Risk--> LDL AND HDL PARTICLES Percentile in Reference Population HDL-P (total) High 75th 50th 25th Low >34.9 34.9 30.5 26.7 <26.7 . Small LDL-P Low 25th 50th 75th High <117 117 527 839 >839 . LDL Size <-Large (Pattern A)-> <-Small (Pattern B)-> 23.0 20.6 20.5 19.0 Small LDL-P and LDL Size are associated with CVD risk, but not afterLDL-P is taken into account. .These assays were developed and their performance characteristicsdetermined by [employer]. These assays have not been cleared by [place] Food and Drug Administration. The clinical utility of theselaboratory values have not been fully established. Small LDL-P 1048 nmol/L (Abnormal) HDL-P (Total) 35.5 umol/L (Normal) Cholesterol, Total 213 mg/dL (Abnormal) Range: 100-199 Triglycerides 147 mg/dL (Normal) Range: 0-149 HDL-C 56 mg/dL (Normal) LDL-C 128 mg/dL (Abnormal) Range: 0-99 Comments: . Optimal < 100 Above optimal 100 - 129 Borderline 1 30 - 159 High 160 - 189 Very high > 189 .LDL-C is inaccurate if patient is non-fasting. LDL-P 1980 nmol/L (Abnormal) Comments: Low < 1000 Moderate 1000 - 1299 Borderline-High 1300 - 1599 High 1600 - 2000 Very High > 2000 :42 HgA1C , Office (55958) HgA1C , Office 7.5 % (Abnormal) Range: 4.6 - 7.1 :42 Blood Glucose , Office (54927) Blood Glucose , Office 157 (Normal) :56 HgA1C , Office (96927) HgA1C , Office 6.7 % (Normal) Range: 4.6 - 7.1 :56 Blood Glucose , Office (08706) Blood Glucose , Office 150 (Normal) :42 HgA1C , Office (80307) HgA1C , Office 6.2 % (Normal) Range: 4.6 - 7.1 :19 HgA1C , Office (33176) HgA1C , Office 7.1 % (Normal) Range: 4.6 - 7.1 :19 Blood Glucose , Office (57768) Blood Glucose , Office 89 (Normal) :25 HgA1C , Office (88966) HgA1C , Office 6.9 % (Normal) Range: 4.6 - 7.1 :25 Blood Glucose , Office (41879) Blood Glucose , Office 112 (Normal) :14 HgA1C , Office (48550) HgA1C , Office 6.5 % (Normal) Range: 4.6 - 7.1 :14 Blood Glucose , Office (13445) Blood Glucose , Office 159 (Normal) :48 HgA1C , Office (65994) HgA1C , Office 6.4 % (Normal) Range: 4.6 - 7.1 :48 Blood Glucose , Office (87980) Blood Glucose , Office 91 (Normal) :39 Microscopic Examination Comments: PATIENT WAS FASTINGPERFORMED BY: AskuityDeborah [facility] and Lung CenterIwnflw7342 [facility] [id number] Bacteria Few (Normal) Mucus Threads Present (Normal) Epithelial Cells (non renal) 0-10 {/hpf} (Normal) Range: 0 - 10 RBC 0-2 {/hpf} (Normal) Range: 0 - 2 WBC 0-5 {/hpf} (Normal) Range: 0 - 5 :39 CALCIFIDIOL (61824) VIT D 25 Comments: PATIENT WAS FASTINGPERFORMED BY: [facility]uityLos [facility]amos Medical CenterWqzbhw8848 [facility] [id number] Vitamin D, 25-Hydroxy 37.4 ng/mL (Normal) Range: 30.0-100.0 Comments: Vitamin D deficiency has been defined by the [place] [facility] and an Endocrine Society practice guideline as alevel of serum 25-OH vitamin D less than 20 ng/mL (1,2).The Endocrine Society went on to further define vitamin Dinsufficiency as a level between 21 and 29 ng/mL (2).1. IOM ([place] of Medicine). 2010. Dietary reference intakes for calcium and D. [place]: The National Academies Press.2. Elizabeth MF, Charles LUNDY, Silke BATISTA, et al. Evaluation, treatment, and prevention of vitamin D deficiency: an Endocrine Society clinical practice guideline. JCEM. 2010; 96(7):1911-30. :39 TSH (24400) Comments: PATIENT WAS FASTINGPERFORMED BY: [facility]uityDebor[facility] Lung CenterRxouby5850 [facility] [id number] TSH 1.340 {uIU/mL} (Normal) Range: 0.450-4.500 :39 URINALYSIS, W/ MICRO (84200) Comments: PATIENT WAS FASTINGPERFORMED BY: [facility]cyS[facility] CenterNdeavg5628 [facility] [id number] Microscopic Examination See below: (Normal) Comments: Microscopic was indicated and was performed. Microscopic Examination MICRON (Normal) Comments: Microscopic follows if indicated. Nitrite, Urine Negative (Normal) Urobilinogen,Semi-Qn 0.2 mg/dL (Normal) Range: 0.2-1.0 Bilirubin Negative (Normal) Occult Blood Negative (Normal) Ketones Negative (Normal) Glucose Trace (Abnormal) Protein Negative (Normal) WBC Esterase Negative (Normal) Appearance Clear (Normal) Urine-Color Yellow (Normal) pH 6.0 (Normal) Range: 5.0-7.5 Specific [place] 1.021 (Normal) Range: 1.005-1.030 :39 MICROALBUMIN: CREATININE RATIO Comments: PATIENT WAS FASTINGPERFORMED BY: [facility]uityLos [facility] Medical CenterAbnmit7381 [facility] [id number] ([id number]) AND (43744) Microalb/Creat Ratio <3.1 {mg/g_creat} (Normal) Range: 0.0-30.0 Microalbumin, Urine <3.0 ug/mL (Normal) Creatinine, Urine 97.1 mg/dL (Normal) :39 METABOLIC PANEL, COMPREHENSIVE Comments: PATIENT WAS FASTINGPERFORMED BY: [facility] CenterEbvqqy0471 [facility] [id number] (62440) ALT (SGPT) 40 [iU]/L (Abnormal) Range: 0-32 [...] mg/dL (Abnormal) Range: 65-99 :39 LIPID PANEL (30715) Comments: PATIENT WAS FASTINGPERFORMED BY: [facility]rumz6370 [facility] [id number] LDL/HDL Ratio 1.9 {ratio_units} (Normal) Range: 0.0-3.2 [...] DIFF WBC Comments: PATIENT WAS FASTINGPERFORMED BY: [employer]70 [facility] [id number] Information: [id number] (03868) Immature Grans (Abs) 0.0 {x10E3/uL} (Normal) Range: [...] Range: 3.4-10.8 :56 Blood Glucose , Office (55330) Blood Glucose , Office 130 (Normal) 84-Hld-037665:41 HgA1C , Office (94914) HgA1C , Office 6.8 % (Normal) Range: 4.6 - 7.1 67-Qcq-507117:41 Blood Glucose , Office (30053) Blood Glucose , Office 92 (Normal) 95-Xco-027173:03 LIPID PANEL (81258) Comments: PATIENT WAS FASTINGPERFORMED BY: [facility]CoDebor[facility] Lung CenterRtoycn9515 [facility] [id number] Information: [id number] LDL/HDL Ratio 2.4 {ratio_units} (Normal) Range: 0.0-3.2 [...] Cholesterol, Total 203 mg/dL (Abnormal) Range: 100-199 32-Jgr-323337:03 CALCIFIDIOL (40432) VIT D 25 Comments: PATIENT WAS FASTINGPERFORMED BY: [facility]CoDeb[facility] Lung CenterAxhjnl1390 [facility] [id number] Vitamin D, 25-Hydroxy 26.2 ng/mL (Abnormal) Range: 30.0-100.0 Comments: Vitamin D deficiency has been defined by the [place] of[place]icine and an Endocrine Society practice guideline as alevel of serum 25-OH vitamin D less than 20 ng/mL (1,2).The Endocrine Society went on to further define vitamin Dinsufficiency as a level between 21 and 29 ng/mL (2).1. IOM ([place] of Medicine). 2010. Dietary reference intakes for calcium and D. [place]: The National Academies Press.2. Elizabeth MF, Charles NC, Silke BATISTA, et al. Evaluation, treatment, and prevention of vitamin D deficiency: an Endocrine Society clinical practice guideline. JCEM. 2010; 96(7):1911-30. :11 Blood Glucose , Office (59802) Blood Glucose , Office 118 (Normal) :10 HgA1C , Office (49588) HgA1C , Office 6.4 % (Normal) Range: 4.6 - 7.1 :02 Blood Glucose , Office (47715) Blood Glucose , Office 103 (Normal) :02 HgA1C , Office (85911) HgA1C , Office 6.7 % (Normal) Range: 4.6 - 7.1 :25 HgA1C , Office (00684) HgA1C , Office 6.2 % (Normal) Range: 4.6 - 7.1 :25 Blood Glucose , Office (17098) Blood Glucose , Office 135 (Normal) :27 Blood Glucose , Office (34831) Blood Glucose , Office 73 (Normal) :27 HgA1C , Office (15829) HgA1C , Office 5.9 % (Normal) Range: 4.6 - 7.1 :46 HgA1C , Office (50309) HgA1C , Office 5.8 % (Normal) Range: 4.6 - 7.1 :46 Blood Glucose , Office (77436) Blood Glucose , Office 118 (Normal) :58 HgA1C , Office (07820) HgA1C , Office 5.9 % (Normal) Range: 4.6 - 7.1 :58 Blood Glucose , Office (91033) Blood Glucose , Office 75 (Normal) :58 HgA1C , Office (81487) HgA1C , Office 5.6 % (Normal) Range: 4.6 - 7.1 :58 Blood Glucose , Office (01532) Blood Glucose , Office 99 (Normal) :06 [...] 7-18 GLU 100 mg/dL (Normal) Range: 70-110 77-Oyj-616643:06 LIPID VLDL 20 mg/dL (Normal) Range: 5-40 [...] CHOL 207 mg/dL (Abnormal) Comments: <200 mg/dL Zsochpmco728-477 mg/dL Borderline>240 mg/dL High Risk 05-Ebz-867467:06 MIACRE MIALB 10.6 mg/L (Normal) tMICROCREAT 8.1 {mg/g_CRE} (Normal) CREU 130.8 mg/dL (Normal) 21-Fcq-720276:06 TSH 1.00 {uIU/mL} (Normal) Range: 0.358-3.74 85-Oyp-130954:06 VITD 50.4 mg/mL (Normal) Comments: Vitamin D 25(OH) Status RangeDeficiency <20 ng/mL (50nmol/L)Insuffciency 20 - 30 ng/mL (50 - 75 nmol/L)Sufficiency 30 - 100 ng/mL (75 - 250 nmol/L)Toxicity >100 ng/mL (>250 nmol/L) 3-Phw-936853:26 URINE KAHSIF CULTURE-IDENTIFICATN Comments: PATIENT NOT FASTINGPERFORMED BY: [facility]Co[facility] Lung CenterVkluho1107 [facility] [id number] Information: [id number] (55968) Result 1 BETAGB (Abnormal) Comments: Beta hemolytic [...] (CLSI 2011) Urine Final report (Abnormal) Culture,Comprehensive 8-Dyo-625643:07 Urinalysis, Office (76357) UA - LEUKOCYTE ESTERASE Small (Normal) UA - NITRITE Negative (Normal) URINE UROBILINGN ALEX TIMED Normal mg/dL (Normal) UA - PROTEIN Negative mg/dL (Normal) UA - PH 5 (Abnormal) UA - BLOOD Negative (Normal) UA - SPECIFIC GRAVITY 1.010 (Normal) UA - KETONES Negative mg/dL (Normal) UA - BILIRUBIN Negative (Normal) UA - GLUCOSE Negative (Normal) :06 HgA1C , Office (22046) HgA1C , Office 7.0 % (Normal) Range: 4.6 - 7.1 :06 Blood Glucose , Office (57215) Blood Glucose , Office 82 (Normal) :38 HgA1C , Office (10811) HgA1C , Office 6.4 % (Normal) Range: 4.6 - 7.1 :38 Blood Glucose , Office (88574) Blood Glucose , Office 106 (Normal) 06-Qgc-706283:47 CBCD ANC 2.3 {X10_3/uL} (Normal) Range: 2.0-7.7 [...] 4.2-5.4 WBC 4.4 K/mm3 (Normal) Range: 4.4-11.0 :47 CMP GAP 6 (Normal) Range: 5-15 CO2 [...] 126 mg/dLsuggests DIABETES MELLITUS per A.D.A. criteria. 71-Wgm-114173:47 LIPID LDL 121 mg/dL (Normal) Range: 0-130 [...] CHOL 198 mg/dL (Normal) Comments: <200 mg/dL Bdafquodg443-662 mg/dL Borderline>240 mg/dL High Risk 26-Msw-487159:47 MIACRE tMICROCREAT 5.7 {mg/g_CRE} (Normal) MIALB 5.0 mg/L (Normal) CREU 87.7 mg/dL (Normal) 15-Lzy-028894:47 TSH 0.62 {uIU/mL} (Normal) Range: 0.358-3.74 95-Vat-250443:47 UAC Comments: How was Urine Obtained? CLEAN [...] (Normal) UCLAR Clear (Normal) UCOL Yellow (Normal) 36-Ojm-136053:47 VITD 24.7 mg/mL (Normal) Comments: Vitamin D 25(OH) Status RangeDeficiency <20 ng/mL (50nmol/L)Insuffciency 20 - 30 ng/mL (50 - 75 nmol/L)Sufficiency 30 - 100 ng/mL (75 - 250 nmol/L)Toxicity >100 ng/mL (>250 nmol/L) :35 HgA1C , Office (59359) HgA1C , Office 6.1 % (Normal) Range: 4.6 - 7.1 :35 Blood Glucose , Office (36296) Blood Glucose , Office 102 (Normal) :24 HgA1C , Office (16032) HgA1C , Office 5.9 % (Normal) Range: 4.6 - 7.1 :24 Blood Glucose , Office (40695) Blood Glucose , Office 375 (Normal) :13 CBCMD ANC 3.2 3/uL (Normal) Range: 2.0-7.7 [...] 126 mg/dLsuggests DIABETES MELLITUS per A.D.A. criteria. 36-Mmb-373613:13 LIPID VLDL 40 mg/dL (Normal) Range: 5-40 [...] CHOL 231 mg/dL (Abnormal) Comments: <200 mg/dL Zzvvrfuog295-192 mg/dL Borderline>240 mg/dL High Risk :13 MIACRE tMICROCREAT 7.0 {mg/g_CRE} (Normal) MIALB 9.2 mg/L (Normal) CREU 130.6 mg/dL (Normal) :13 TSH 0.64 {uIU/mL} (Normal) Range: 0.358-3.74 :13 [facility] 0 SEEN {/hpf} (Normal) UBAC 0 [...] (Normal) UCLAR Clear (Normal) UCOL Yellow (Normal) :13 VITD 28.1 ng/mL (Normal) Comments: Vitamin D 25(OH) Status RangeDeficiency <20 ng/mL (50nmol/L)Insufficiency 20 - 30 ng/mL (50 - 75 nmol/L)Sufficiency 30 - 100 ng/mL (75 - 250 nm ol/L)Toxicity >100 ng/mL (250 nmol/L) :40 HgA1C , Office (52936) HgA1C , Office 7.1 % (Normal) Range: 4.6 - 7.1 :40 Blood Glucose , Office (73063) Blood Glucose , Office 123 (Normal) :05 Blood Glucose , Office (71481) Blood Glucose , Office 176 (Normal) :43 HEPATIC FUNCTION PANEL Comments: PATIENT NOT FASTINGPERFORMED BY: [facility] Flyefz3615 [facility] [id number] Information: [id number] (16091) ALT (SGPT) 146 [iU]/L (Abnormal) Range: 0-32 AST (SGOT) 101 [iU]/L (Abnormal) Range: 0-40 Alkaline Phosphatase, S 94 [iU]/L (Normal) Range: 25-150 Bilirubin, Direct 0.20 mg/dL (Normal) Range: 0.00-0.40 Albumin, Serum 4.5 g/dL (Normal) Range: 3.5-5.5 Bilirubin, Total 0.6 mg/dL (Normal) Range: 0.0-1.2 Protein, Total, Serum 7.1 g/dL (Normal) Range: 6.0-8.5 :14 Blood Glucose , Office (40611) Blood Glucose , Office 193 (Normal) :11 MICROALBUMIN: CREATININE RATIO Comments: PATIENT WAS FASTINGPERFORMED BY: [facility] GreenhousesDeborah Heart and Lung CenterAzwaak3790 [facility] [id number] (03258) AND (13798) Microalb/Creat Ratio 3.8 {mg/g_creat} (Normal) Range: 0.0-30.0 Microalbumin, Urine 6.3 ug/mL (Normal) Range: 0.0-17.0 Creatinine, Urine 167.6 mg/dL (Normal) Range: 15.0-278.0 :11 METABOLIC PANEL, COMPREHENSIVE Comments: PATIENT WAS FASTINGPERFORMED BY: [facility] GreenhousesDeborah Heart and Lung CenterAyeggd7635 [facility] [id number] (71698) ALT (SGPT) 59 [iU]/L (Abnormal) Range: 0-32 [...] Glucose, Serum 177 mg/dL (Abnormal) Range: 65-99 13-Woe-52530:11 CBC WITH MANUAL DIFF Comments: PATIENT WAS FASTINGPERFORMED BY: LabCoDeborah Heart and Lung CenterQvtlmo1911 [facility] [id number] Information: [id number] (63849) Immature Grans (Abs) 0.0 {x10E3/uL} (Normal) Range: [...] {x10E3/uL} (Abnormal) Range: 4.0-10.5 :11 LIPID PANEL (14143) Comments: PATIENT WAS FASTINGPERFORMED BY: AskuityDeborah Heart and Lung CenterMxgqxd9096 [facility] [id number] LDL/HDL Ratio 2.9 {ratio_units} (Normal) Range: 0.0-3.2 LDL Cholesterol Calc 153 mg/dL (Abnormal) Range: 0-99 VLDL Cholesterol Josep 32 mg/dL (Normal) Range: 5-40 HDL Cholesterol 53 mg/dL (Normal) Comments: According to ATP-III Guidelines, HDL-C >59 mg/dL is considered anegative risk factor for CHD. Triglycerides 162 mg/dL (Abnormal) Range: 0-149 Cholesterol, Total 238 mg/dL (Abnormal) Range: 100-199 :11 Vitamin D Hydroxy (59712) Comments: PATIENT WAS FASTINGPERFORMED BY: AskuityDeborah Heart and Lung CenterYklwhn9864 [facility] [id number] Vitamin D, 25-Hydroxy 63.5 ng/mL (Normal) Range: 30.0-100.0 Comments: Vitamin D deficiency has been defined by the [place] and an Endocrine Society practice guideline as alevel of serum 25-OH vitamin D less than 20 ng/mL (1,2).The Endocrine Society went on to further define vitamin Dinsufficiency as a level between 21 and 29 ng/mL (2).1. IOM ([place] [employer]). 2010. Dietary reference intakes for calcium and D. [place]: The National Academies Press.2. Elizabeth MF, Charles NC, Silke BATISTA, et al. Evaluation, treatment, and prevention of vitamin D deficiency: an Endocrine Society clinical practice guideline. JCEM. 2010; 96(7):1911-30. :10 HgA1C , Office (83633) HgA1C , Office 5.8 % (Normal) Range: 4.6 - 7.1 :10 Blood Glucose , Office (27100) Blood Glucose , Office 194 (Normal) Comments: fasting :15 HgA1C , Office (38690) HgA1C , Office 5.7 % (Normal) Range: 4.6 - 7.1 :15 Blood Glucose , Office (09912) Blood Glucose , Office 178 (Normal) :15 Vitamin D Hydroxy (52503) Comments: PATIENT NOT FASTINGPERFORMED BY: AskuityLos Alamos Medical CenterZyudqc8854 [facility] [id number] Information: [id number] Vitamin D, 25-Hydroxy 60.0 ng/mL (Normal) Range: 30.0-100.0 Comments: Vitamin D deficiency has been defined by the [place] of[place] and an Endocrine Society practice guideline as alevel of serum 25-OH vitamin D less than 20 ng/mL (1,2).The Endocrine Society went on to further define vitamin Dinsufficiency as a level between 21 and 29 ng/mL (2).1. IOM ([place] [employer]). 2010. Dietary reference intakes for calcium and D. [place]: The National Academies Press.2. Elizabeth MF, Charles NC, Silke BATISTA, et al. Evaluation, treatment, and prevention of vitamin D deficiency: an Endocrine Society clinical practice guideline. JCEM. 2010; 96(7):1911-30. :54 METABOLIC PANEL, Comments: PATIENT WAS FASTINGPERFORMED BY: LabCoDeborah [facility] and Lung CenterEygqbu2910 [facility] [id number] Information: [id number] COMPREHENSIVE (31701) ALT (SGPT) 24 [iU]/L (Normal) Range: 0-40 [...] Glucose, Serum 105 mg/dL (Abnormal) Range: 65-99 95-Eta-315049:54 LIPID PANEL (16537) Comments: PATIENT WAS FASTINGPERFORMED BY: [facility] [id number] LDL/HDL Ratio 2.5 {ratio_units} (Normal) Range: 0.0-3.2 LDL Cholesterol Calc 144 mg/dL (Abnormal) Range: 0-99 VLDL Cholesterol Josep 28 mg/dL (Normal) Range: 5-40 HDL Cholesterol 58 mg/dL (Normal) Comments: According to ATP-III Guidelines, HDL-C >59 mg/dL is considered anegative risk factor for CHD. Triglycerides 141 mg/dL (Normal) Range: 0-149 Cholesterol, Total 230 mg/dL (Abnormal) Range: 100-199 :54 Vitamin D Hydroxy (97212) Comments: PATIENT WAS FASTINGPERFORMED BY: [employer]70 [facility] ConceptsSandhills [facility] Center [id number] Vitamin D, 25-Hydroxy 28.0 ng/mL (Abnormal) Range: 30.0-100.0 Comments: Vitamin D deficiency has been defined by the [place] and an Endocrine Society practice guideline as alevel of serum 25-OH vitamin D less than 20 ng/mL (1,2).The Endocrine Society went on to further define vitamin Dinsufficiency as a level between 21 and 29 ng/mL (2).1. IOM ([place] [employer]). 2010. Dietary reference intakes for calcium and D. [place]: The National Academies Press.2. Elizabeth MF, Charles LUNDY, Silke BATISTA, et al. Evaluation, treatment, and prevention of vitamin D deficiency: an Endocrine Society clinical practice guideline. JCEM. 2010; 96(7):1911-30. :35 HgA1C , Office (66845) HgA1C , Office 5.6 % (Normal) Range: 4.6 - 7.1 :35 Blood Glucose , Office (12046) Blood Glucose , Office 129 (Normal) :45 CBC With Differential/Platelet Comments: Test(s) WBC; Platelets; Neutrophils (Absolute) called to YUNIER on 11/29/2011 at 14:08 ESTPATIENT WAS FASTINGPERFORMED BY: [facility] Wactkm2687 [facility] [id number] Hematology Comments: Note: (Normal) Comments: Manual differential [...] 11/29/2011 at 14:08 ESTPATIENT WAS FASTINGPERFORMED BY: [employer]70 [facility] [id number] Blasts/blast like cells 21 % (Abnormal) Range: 0 - 0 :45 Lipid Panel With LDL/HDL Comments: Test(s) WBC; Platelets; Neutrophils (Absolute) called to YUNIER on 11/29/2011 at 14:08 ESTPATIENT WAS FASTINGPERFORMED BY: iCrumz6370 [facility] [id number] Ratio LDL/HDL Ratio 1.2 {ratio_units} (Normal) Range: [...] 11/29/2011 at 14:08 ESTPATIENT WAS FASTINGPERFORMED BY: VivactaHenry [facility]6370 [facility] [id number] Comments/Recommendations Comment: (Normal) Comments: 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 Suggest bone marrowevaluation and flow cytometry and cytogenetics. Pathologist Comment: (Normal) Comments: This case was reviewed by Lila Kingsley M.D. PLTs Comment: (Normal) Comments: Thrombocytopenia.Few large platelets were observed. RBC Comment: (Normal) Comments: Decreased.Slight anisocytosis.Poikilocytosis.Rare nucleated RBC seen. WBC Comment: (Normal) Comments: Leukopenia. :54 HgA1C , Office (50974) HgA1C , Office 6.6 % (Normal) Range: 4.6 - 7.1 :54 Blood Glucose , Office (32190) Blood Glucose , 197 (Normal) Office Vitamin D, 23.4 ng/mL Comments: Test(s) WBC; Neutrophils (Absolute) called to Dr Wilson on 11/18/2011 at 05:44 ESTPATIENT NOT FASTINGPERFORMED BY: [facility] [id number] 25-Hydroxy (Abnormal) Range: 30.0-100.0 Comments: Vitamin D deficiency has been defined by the [place] of[place] and an Endocrine Society practice guideline as alevel of serum 25-OH vitamin D less than 20 ng/mL (1,2).The Endocrine Society went on to further define vitamin Dinsufficiency as a level between 21 and 29 ng/mL (2).1. IOM ([place]). 2010. Dietary reference intakes for calcium and D. [place]: The National Academies Press.2. Elizabeth MF, Charles NC, Silke BATISTA, et al. Evaluation, treatment, and prevention of vitamin D deficiency: an Endocrine Society clinical practice guideline. JCEM. 2010; 96(7):1911-30. :05 BLD CNT, MANUAL CELL COUNT, Comments: Test(s) WBC; Neutrophils (Absolute) called to Dr Wilson on 11/18/2011 at 05:44 ESTPATIENT NOT FASTINGPERFORMED BY: [facility] Wbswzu0104 [employer] [facility] [id number] EACH (35305) Hematology Comments: Note: (Normal) Comments: Verified by [...] 3.80-5.10 WBC 1.2 {x10E3/uL} (Abnormal) Range: 4.0-10.5 70-Ftq-173363:05 EBV Panel (06492) Comments: Test(s) WBC; Neutrophils (Absolute) called to Dr Wilson on 11/18/2011 at 05:44 ESTPATIENT NOT FASTINGPERFORMED BY: [facility] Psdvwc7349 [facility] [id number] Interpretation: SPRCS (Normal) Comments: EBV Interpretation Chart [...] <0.9 Equivocal 0.9 - 1.0 Positive >1.0 00-Ijm-74549:55 CBCMD PATHR Reviewed (Normal) Comments: Leukopenia and neutropenia.Clinical correlation necessary.Ron Ramírez M.D. 11/16/11 AMENDED REPORT 11/16/11 1545 PATH REV previously reported as: December sherif Reason: Pathologist comment added STIP 1+ (Normal) POLY 1+ (Normal) PE ADEQUATE (Normal) NRBC 1 % (Normal) Range: 0-5 MON 3 % (Normal) Range: 0-10 LYMPH 70 % (Abnormal) Range: 19-41 PMN 27 % (Abnormal) Range: 47-70 KARAN 100 (Normal) ANC 0.3 3/uL (Abnormal) Range: [...] TSH 0.80 {uIU/mL} (Normal) Range: 0.358-3.74 :55 UAC UMUC 1+ {/hpf} (Normal) UBAC 0 SEEN [...] UCLAR SL CLOUDY (Normal) UCOL YELLOW (Normal) :55 VITD 24.5 ng/mL (Abnormal) Range: 30.0-100.0 Comments: Vitamin D deficiency has been defined by the [place] ofHol[facility] Hospitalcine and an Endocrine Society practice guideline as alevel of serum 25-OH vitamin D less than 20 ng/mL (1,2).The Endocrine Society went on to further define vitamin Dinsufficiency as a level between 21 and 29 ng/mL (2).1. IOM ([place]). 2010. Dietary reference intakes for calcium and D. [place]: The National Academies Press.2. Elizabeth MF, Charles NC, Silke BATISTA, et al. Evaluation, treatment, and prevention of vitamin D deficiency: an Endocrine Society clinical practice guideline. JCEM. 2010; 96(7): 1911-30. .Effective November 01, 2011, Vitamin D, 25 Hydroxy specimen requirements will change to serum only.Performed at: - [facility] [id number] Director: Lila Kingsley MD, Phone: [phone] 51-Sgw-121286:41 GLU 158 mg/dL (Abnormal) Comments: PATIENT NOT FASTING/DEMANDED TO BE DRAWN Range: 70-110 Comments: Fasting Glucose result greater than or equal to 126 mg/dL suggests DIABETES MELLITUS per A.D.A. criteria. 89-Skv-333008:41 HGB A1C 6.6 % (Abnormal) Comments: PATIENT [...] the spine, as detailed above. Dictated on 05/31/[address] MDranscribed on 06/01/111702 by ITS IMPORTSign by Mitch Street MD on 06/01/111702 Sign by: Mitch Street MD 24-Fil-094494:20 HgA1C , Office (46775) HgA1C , Office 6.7 % (Normal) Range: 4.6 - 7.1 51-Ijm-975505:20 Blood Glucose , Office (42325) Blood Glucose , Office 175 (Normal) 1-Uyh-065437:00 LIVER D BILI 0.11 mg/dL (Normal) Range: [...] per A.D.A. criteria. :22 HgA1C , Office (02000) HgA1C , Office 6.7 % (Normal) Range: 4.6 - 7.1 :22 Blood Glucose , Office (65960) Blood Glucose , Office 205 (Normal) 57-Xxt-482120:00 CHEST WITH CONTRAST Radiology Report See Note [...] JAMARI HARRIS MD :47 HgA1C , Office (94673) HgA1C , Office 6.8 % (Normal) Range: 4.6 - 7.1 :47 Blood Glucose , Office (80107) Blood Glucose , Office 175 (Normal) :54 [...] mg/dL suggests DIABETES MELLITUS per A.D.A. criteria. 31-Niq-06069:54 COMPLETE UA BACTERIA 1+ {/hpf} (Normal) MUCUS, [...] NEGATIVE CLARITY CLEAR (Normal) COLOR YELLOW (Normal) 34-Ksc-62741:54 MICROALB:CRE UR MALB:CREAT 5.2 {mg/g_CRE} (Normal) MICROALBUMIN,UR 5.6 mg/L (Normal) UR CREAT 106.9 mg/dL (Normal) :54 TSH 0.77 {uIU/mL} (Normal) Range: 0.358-3.74 :54 VITD 1,25 53184 39.5 pg/mL (Normal) Range: 10.0-75.0 Comments: Performed at: - [facility] [id number] Director: Madi Chandler MD, Phone: [phone] HgA1C , Office (51367) HgA1C , Office 6.8 % (Normal) Range: 4.6 - 7.1 :52 Blood Glucose , Office (62012) Blood Glucose , Office 117 (Normal) :35 [...] mg/dL High Risk :55 HgA1C , Office (02543) Comments: done km HgA1C , Office 6.3 % (Normal) Range: 4.6 - 7.1 :55 Blood Glucose , Office (83135) Comments: done km Blood Glucose , Office 111 (Normal) :10 HgA1C , Office (30845) Comments: done km HgA1C , Office 6.6 % (Normal) Range: 4.6 - 7.1 :10 Blood Glucose , Office (19470) Comments: done km Blood Glucose , Office 108 (Normal) 1-Utq-912802:00 CBCD,SMEAR DIFF ABSOLUTE NEUT 2.6 3/uL (Normal) [...] 4.2-5.4 WBC 5.5 K/mm3 (Normal) Range: 4.4-11.0 8-Wxh-745894:00 COMP METABOLIC ALK P 94 U/L (Normal) [...] <126 mg/dLsuggests IMPAIRED HOMEOSTASIS per A.D.A. criteria. 1-Fdt-597665:00 LIPID CHOL 129 mg/dL (Normal) Comments: <200 mg/dL Scpfyradd436-158 mg/dL Borderline>240 mg/dL High Risk HDL 46 mg/dL (Normal) Comments: Reference RangeHDL <40 mg/dL Low HDL CholesterolHDL >or= 60 mg/dL High HDL Cholesterol LDL 69 mg/dL (Normal) Range: 0-130 TRIG 69 mg/dL (Normal) Comments: Serum Triglycerides Reference IntervalNormal <150 mg/dLBorderline high 150 - 199 mg/dLHigh 200 - 499 mg/ dLVery High > or = 500 mg/dL VLDL 14 mg/dL (Normal) Range: 5-40 6-Rcs-136157:00 MICROALB:CRE UR MALB:CREAT 3.4 {mg/g_CRE} (Normal) MICROALBUMIN,UR 6.9 mg/L (Normal) UR CREAT 199.6 mg/dL (Normal) 5-Hzy-798372:00 NMR LIPOPROFILE HDL SIZE 8.5 nm (Abnormal) [...] DIABETES RISK MARKERS<--Insulin Sensitive Insulin Resistant-->Percentile in [facility] VLDL-P Low 25th 50th 75th High<0.9 0.9 [...] High<27 27 45 63 >63 Performed at: [facility] [place], [place] [id number] Director: Kirit Venegas PhD SMALL LDL-P 889 [...] TOT 142 mg/dL (Normal) LIPIDS . (Normal) 4-Iwl-703054:00 TSH 0.79 {uIU/mL} (Normal) Range: 0.358-3.74 :44 HgA1C , Office (55744) Comments: done km HgA1C , Office 7.3 % (Abnormal) Range: 4.6 - 7.1 :44 Blood Glucose , Office (45679) Comments: done km Blood Glucose , Office 153 (Normal) :59 Blood Glucose , Office (54754) Blood Glucose , Office 102 (Normal) :59 HgA1C , Office (49164) HgA1C , Office 6.5 % (Normal) Range: [...] 47-70 WBC 4.9 K/mm3 (Normal) Range: 4.4-11.0 05-Apr-20099:33 COMP METABOLIC A/G 1.0 {RATIO} (Normal) Range: [...] (Normal) Range: 0.358-3.74 :56 HgA1C , Office (31186) HgA1C , Office 6.4 % (Normal) Range: 4.6 - 7.1 :56 Blood Glucose , Office (28901) Blood Glucose , Office 235 (Normal) :55 HgA1C , Office (48048) Comments: done HgA1C , Office 6.7 % (Normal) Range: 4.6 - 7.1 :55 Blood Glucose , Office (00549) Comments: done Blood Glucose , Office 123 (Normal) :54 UPPER EXT/NO JT W/O CONTRAST Radiology Report See Note (Normal) Comments: Exam Number: [id number] MRI LEFT UPPER EXTREMITY ON THE OPEN [...] JAMARI TRAN M.D. :02 HgA1C , Office (06340) HgA1C , Office 6.0 % (Normal) Range: 4.6 - 7.1 :02 Blood Glucose , Office (85167) Blood Glucose , Office 151 (Normal) :33 HgA1C , Office (15950) HgA1C , Office 6.3 % (Normal) Range: 4.6 - 7.1 Comments: :33 Blood Glucose , Office (24192) Blood Glucose , Office 136 (Normal) Comments: [...] (Normal) Range: 0.34-4.82 :58 HgA1C , Office (12783) HgA1C , Office 5.9 % (Normal) Range: [...] :39 TSH 0.70 {uIU/mL} (Normal) Range: 0.34-4.82 84-Giq-573257:57 CHEST, PA AND LATERAL Radiology Report See Note (Normal) Comments: Exam Number: [id number] PA AND LATERAL CHEST HISTORY Being done for cough. Cardiac configuration is normal. No acute infiltrate, effusion, orpneumothorax is identified. IMPRESSIONNo acu te change no marion in the lungs. Reported By: LESLIE VOSS M.D. 37-Ryi-616006:19 HgA1C , Office (07767) Comments: done km HgA1C , Office 6.0 % (Normal) Range: 4.6 - 7.1 :19 Blood Glucose , Office (59184) Comments: done Blood Glucose , Office 93 (Normal) :12 FOOT,MIN 3 VIEWS Radiology Report See Note (Normal) Comments: Exam Number: [id number] LEFT FOOT, 3 VIEWS HISTORYPain. TECHNIQUEAP, lateral, [...] metatarsal head. Reported By: LESLIE VOSS M.D. 9-Sht-718146:11 LIPID CHOL 205 mg/dL (Abnormal) Comments: <200 [...] mg/dL VLDL 15 mg/dL (Normal) Range: 5-40 :15 HgA1C , Office (22404) Comments: HgA1C , Office 6.0 % (Normal) Range: 4.6 - 7.1 3-Akr-474954:15 Blood Glucose , Office (63623) Comments: Blood Glucose , Office 90 (Normal) :10 LIPID PANEL (26390) Comments: do in 3mo; PATIENT WAS FASTINGClinical Information: ADD DRAW FEE [id number] ADD J0 3378 PERFORMED BY: LabCoDeborah Heart and Lung CenterAqtmgr6353 [facility] [id number] Cholesterol, Total 227 mg/dL (Abnormal) Range: 100-199 Comment SPRCS (Normal) Comments: If initial LDL-cholesterol result is >100 mg/dL, assess forrisk factors. HDL Cholesterol 46 mg/dL (Normal) Range: 40-59 LDL Cholesterol Calc 165 mg/dL (Abnormal) Range: 0-99 LDL/HDL Ratio 3.6 {ratio_units} (Abnormal) Range: 0.0-3.2 Triglycerides 79 mg/dL (Normal) Range: 0-149 VLDL Cholesterol Josep 16 mg/dL (Normal) Range: 5-40 :55 Blood Glucose , Office (58658) Comments: done Blood Glucose , Office 123 (Normal) :55 HgA1C , Office (59025) Comments: done HgA1C , Office 7.7 % (Abnormal) Range: 4.6 - 7.1 :55 GLUP 343 mg/dL (Abnormal) Comments: GLU,2HPPG 75gm GLUC PPG GLUP from 0825:[id number]. Comments: Glucose result greater than or equal to 200 mg/dLsuggests DIABETES MELLITUS per A.D.A. criteria. :05 MICROALBUMIN,UR 17.2 mg/L (Normal) :05 ROUTINE UA [...] (Normal) Range: 0.2 - 1.0 :44 TYESHA-D [id number] TYESHA-DIRECT 57 U/mL (Normal) Range: 0-99 Comments: [...] {IU/mL} (Normal) Range: 0.0-13.9 Comments: Performed At: [facility] [place], [place] [id number] :44 TSH 0.76 {uIU/mL} (Normal) Range: 0.34-4.82 :46 MYOCARD PERF SPECT REST/STRESS Radiology Report See Note (Normal) Comments: Exam Number: [id number] MYOCARDIAL PERFUSION SCAN 13.8 millicuries of Tc99m Sestamibi was injected at rest. The patientthen exercised according to the regular Aguilar protocol for 6 minutesand 5 seconds a ttaining 97% of maximum predicted heart rate and workload of 7.1 METs. At peak exercise, 36.0 millicuries of Zm25zNwtvbpwrp was injected. Stress images were then obtained. [...] Plan of Care Name Dates Details Instructions Decreased ROM of right shoulder : Follow up if no improvement or if symptoms worsen Indication: Decreased ROM of right shoulder BMI 27.0-27.9,adult : Eprescribed prescriptions (G8553) Indication: BMI 27.0-27.9,adult Diabetes type 2, uncontrolled : Follow up in 3 months Indication: Diabetes type 2, uncontrolled Hypertension, benign : Diet, Exercise, and Wt loss Indication: Hypertension, benign Hypertension, benign : HTN/CAD Red Flags Indication: Hypertension, benign Mixed hyperlipidemia : Cholesterol mgmt Indication: Mixed hyperlipidemia Asthma : Continue Current Prescription(s) Indication: Asthma Vitamin D deficiency, unspecified : Cholesterol mgmt Indication: Vitamin D deficiency, unspecified Diabetes type 2, uncontrolled : Eprescribed prescriptions (G8553) Indication: Diabetes type 2, uncontrolled Hypertension, benign : Diet, Exercise, and Wt [...] LEUKEMIA, PLASMA CELL IN REMISSION : Reviewed Federal Appellate Law Clerk Letter Indication: LEUKEMIA, PLASMA CELL IN REMISSION [...] LEUKEMIA, PLASMA CELL IN REMISSION : Reviewed Federal Appellate Law Clerk Letter Indication: LEUKEMIA, PLASMA CELL IN REMISSION [...] uncontrolled : Follow up -- at march Indication: Diabetes type 2, uncontrolled Diabetes type 2, uncontrolled : Follow up in 2 weeks- bs rev Indication: Diabetes type 2, uncontrolled Diabetes [...] LEUKEMIA, PLASMA CELL IN REMISSION : Reviewed Federal Appellate Law Clerk Letter Indication: LEUKEMIA, PLASMA CELL IN REMISSION Asthma : Continue Current Prescription(s) Indication: Asthma Mixed hyperlipidemia : Cholesterol mgmt Indication: Mixed hyperlipidemia Controlled diabetes mellitus type II without complication : Diabetes Mellitus: Type 2 *: diabetes mellitus Indication: Controlled diabetes mellitus type II without complication LEUKEMIA, PLASMA CELL IN REMISSION : Reviewed Federal Appellate Law Clerk Letter Indication: LEUKEMIA, PLASMA CELL IN REMISSION [...] and Vomiting Nausea and Vomiting : Reviewed Federal Appellate Law Clerk Letter Indication: Nausea and Vomiting Nausea and [...] LEUKEMIA, PLASMA CELL IN REMISSION : Reviewed Federal Appellate Law Clerk Letter Indication: LEUKEMIA, PLASMA CELL IN REMISSION Vitamin D deficiency, unspecified : Reviewed Lab Indication: Vitamin D deficiency, unspecified Controlled diabetes mellitus type II without complication : Diabetes Mellitus: Type 2 *: high blood glucose Indication: Controlled diabetes mellitus type II without complication Controlled diabetes mellitus type II without complication : Reviewed Federal Appellate Law Clerk Letter Indication: Controlled diabetes mellitus type II [...] Hyperlipidemia Planned Observations LIPOPROTEIN, BLD, BY NMR (61665)Indication: Mixed hyperlipidemia On: :54 Request CALCIFIDIOL (75139) VIT D 25Indication: Vitamin D deficiency, unspecified On: :54 Request TSH ([id number])Indication: Controlled diabetes mellitus type II without complication On: :53 Request URINALYSIS, W/ MICRO ([id number])Indication: Controlled diabetes mellitus type II without complication On: :53 Request MICROALBUMIN: CREATININE RATIO ([id number]) AND ([id number])Indication: Controlled diabetes mellitus type II without complication On: :53 Request METABOLIC PANEL, COMPREHENSIVE ([id number])Indication: Controlled diabetes mellitus type II without complication On: 89-Wjh-320291:53 Request CBC W/AUTO DIFF WBC ([id number])Indication: Controlled diabetes mellitus type II without complication On: 74-Dhz-842812:53 Request HGB A1C ([id number])Indication: Diabetes type 2, uncontrolled On: 83-End-941914:41 Request MICROALBUMIN: CREATININE RATIO ([id number]) AND ([id number])Indication: Hypertension, benign On: 69-Ebx-456352:03 Request URINALYSIS ([id number])Indication: Hypertension, benign On: 07-Pgr-620225:03 Request Metabolic Panel, Comprehensive ([id number])Indication: Hypertension, benign On: 46-Ksx-230648:03 Request TSH ([id number])Indication: Hypertension, benign On: 08-Kne-257331:03 Request CALCIFEDIOL ([id number])Indication: Vitamin D deficiency, unspecified On: 82-Kal-790583:03 Request CBC WITH MANUAL DIFF ([id number])Indication: Mixed hyperlipidemia On: 35-Sir-518291:02 Request Lipid Panel ([id number])Indication: Mixed hyperlipidemia On: 56-Kbz-151980:02 Request HGB A1C ([id number])Indication: Diabetes type 2, uncontrolled On: 63-Gwj-113468:02 Request CALCIFEDIOL ([id number])Indication: Vitamin D deficiency, unspecified On: 5-Cvi-958106:59 Request HGB A1C (75721)Indication: Controlled diabetes mellitus type II without complication On: 1-Dud-288036:42 Request CALCIFIDIOL (44383) VIT D 25Indication: Vitamin D deficiency, unspecified On: 4-Ntl-741555:32 Request TSH ([id number])Indication: Controlled diabetes mellitus type II without complication On: :32 Request URINALYSIS, W/ MICRO ([id number])Indication: Controlled diabetes mellitus type II without complication On: 6-Myk-584795:32 Request MICROALBUMIN: CREATININE RATIO ([id number]) AND ([id number])Indication: Controlled diabetes mellitus type II without complication On: :32 Request METABOLIC PANEL, COMPREHENSIVE ([id number])Indication: Controlled diabetes mellitus type II without complication On: :32 Request LIPID PANEL ([id number])Indication: Controlled diabetes mellitus type II without complication On: :32 Request CBC W/AUTO DIFF WBC ([id number])Indication: Controlled diabetes mellitus type II without complication On: 2-Dix-618766:32 Request TSH ([id number])Indication: Mixed hyperlipidemia On: 12-Tsq-101197:55 Request URINALYSIS, W/ MICRO ([id number])Indication: Controlled diabetes mellitus type II without complication On: 53-Tiw-347974:55 Request MICROALBUMIN: CREATININE RATIO ([id number]) AND ([id number])Indication: Controlled diabetes mellitus type II without complication On: 78-Pyo-250754:55 Request CBC W/AUTO DIFF WBC ([id number])Indication: Controlled diabetes mellitus type II without complication On: 79-Hnc-956128:52 Request METABOLIC PANEL, COMPREHENSIVE ([id number])Indication: Controlled diabetes mellitus type II without complication On: 46-Tcy-863067:52 Request CALCIFIDIOL ([id number]) VIT D 25Indication: Vitamin D deficiency, unspecified On: 85-Mmx-940587:52 Request LIPID PANEL ([id number])Indication: Mixed hyperlipidemia On: 31-Ffz-320402:52 Request CALCIFIDIOL ([id number]) VIT D 25Indication: Vitamin D deficiency, unspecified On: 4-Xql-246973:32 Request TSH ([id number])Indication: Controlled diabetes mellitus type II without complication On: :32 Request URINALYSIS, W/ MICRO ([id number])Indication: Controlled diabetes mellitus type II without complication On: :32 Request MICROALBUMIN: CREATININE RATIO ([id number]) AND ([id number])Indication: Controlled diabetes mellitus type II without complication On: :32 Request METABOLIC PANEL, COMPREHENSIVE ([id number])Indication: Controlled diabetes mellitus type II without complication On: : Request CBC W/AUTO DIFF WBC ([id number])Indication: Controlled diabetes mellitus type II without complication On: :32 Request TSH ([id number])Indication: Diabetes type 2, uncontrolled On: : Request URINALYSIS, W/ MICRO ([id number])Indication: Diabetes type 2, uncontrolled On: :28 Request MICROALBUMIN: CREATININE RATIO ([id number]) AND ([id number])Indication: Diabetes type 2, uncontrolled On: :28 Request METABOLIC PANEL, COMPREHENSIVE ([id number])Indication: Diabetes type 2, uncontrolled On: :27 Request LIPID PANEL ([id number])Indication: Mixed hyperlipidemia On: :27 Request CBC W/AUTO DIFF WBC ([id number])Indication: Diabetes type 2, uncontrolled On: :27 Request CALCIFIDIOL ([id number]) VIT D 25Indication: Vitamin D deficiency, unspecified On: :27 Request Vitamin D Hydroxy ([id number])Indication: Vitamin D deficiency, unspecified On: 6-Rzf-921784:46 Request TSH ([id number])Indication: Controlled diabetes mellitus type II without complication On: :17 Request URINALYSIS, W/ MICRO ([id number])Indication: Hypertension On: 3-Fpm-311910:17 Request MICROALBUMIN: CREATININE RATIO ([id number]) AND ([id number])Indication: Controlled diabetes mellitus type II without complication On: :17 Request METABOLIC PANEL, COMPREHENSIVE (07929)Indication: Hypertension On: 2-Wmg-132092:17 Request LIPID PANEL ([id number])Indication: Hypertension On: :17 Request CBC with auto diff ([id number])Indication: Hypertension On: 3-Uzw-261009:17 Request Vitamin D Hydroxy ([id number])Indication: Vitamin D deficiency, unspecified On: 4-Vid-642149:17 Request Vitamin D Hydroxy (54551)Indication: Controlled diabetes mellitus type II without complication On: 4-Iib-239020:57 Request TSH ([id number])Indication: Controlled diabetes mellitus type II without complication On: 7-Vtn-661594:57 Request URINALYSIS, W/ MICRO ([id number])Indication: Controlled diabetes mellitus type II without complication On: 7-Jdu-765923:57 Request MICROALBUMIN: CREATININE RATIO ([id number]) AND ([id number])Indication: Controlled diabetes mellitus type II without complication On: :57 Request METABOLIC PANEL, COMPREHENSIVE ([id number])Indication: Controlled diabetes mellitus type II without complication On: :57 Request LIPID PANEL ([id number])Indication: Mixed hyperlipidemia On: :57 Request CBC W/AUTO DIFF WBC ([id number])Indication: Controlled diabetes mellitus type II without complication On: 0-Hbv-585445:56 Request Vitamin D Hydroxy ([id number])Indication: Vitamin D deficiency, unspecified On: 2-Asz-885838:01 Request LIPID PANEL ([id number])Indication: Vitamin D deficiency, unspecified On: 8-Efc-115434:01 Request TSH ([id number])Indication: Diabetes type 2, uncontrolled On: 9-Kgd-072819:00 Request URINALYSIS, W/ MICRO ([id number])Indication: Diabetes type 2, uncontrolled On: 6-Sml-794892:00 Request MICROALBUMIN: CREATININE RATIO ([id number]) AND ([id number])Indication: Diabetes type 2, uncontrolled On: 3-Pkl-829467:00 Request METABOLIC PANEL, COMPREHENSIVE ([id number])Indication: Diabetes type 2, uncontrolled On: 5-Fbs-729551:00 Request CBC WITH MANUAL DIFF ([id number])Indication: Diabetes type 2, uncontrolled On: 1-Wsm-037866:00 Request CALCIFIDIOL ([id number]) VIT D 25Indication: Vitamin D deficiency, unspecified On: 9-Ria-941250:55 Request Vitamin D Hydroxy (95731)Indication: Vitamin D deficiency, unspecified On: 1-Dvi-222773:13 Request TSH ([id number])Indication: Diabetes type 2, uncontrolled On: :13 Request URINALYSIS, W/ MICRO ([id number])Indication: Diabetes type 2, uncontrolled On: :13 Request MICROALBUMIN: CREATININE RATIO ([id number]) AND ([id number])Indication: Diabetes type 2, uncontrolled On: :13 Request METABOLIC PANEL, COMPREHENSIVE ([id number])Indication: Diabetes type 2, uncontrolled On: :13 Request CBC WITH MANUAL DIFF ([id number])Indication: Diabetes type 2, uncontrolled On: :13 Request LIPID PANEL ([id number])Indication: Diabetes type 2, uncontrolled On: :13 Request Vitamin D Hydroxy (31082)Indication: Vitamin D deficiency, unspecified On: 7-Sdx-910438:00 Request TSH ([id number])Indication: Diabetes type 2, uncontrolled On: 2-Nyd-275319:59 Request URINALYSIS, W/ MICRO ([id number])Indication: Diabetes type 2, uncontrolled On: 6-Nvn-022184:59 Request MICROALBUMIN: CREATININE RATIO ([id number]) AND ([id number])Indication: Diabetes type 2, uncontrolled On: 0-Sro-926949:59 Request METABOLIC PANEL, COMPREHENSIVE ([id number])Indication: Diabetes type 2, uncontrolled On: :59 Request LIPID PANEL (07817)Indication: Diabetes type 2, uncontrolled On: 5-Hef-622189:59 Request CBC WITH MANUAL DIFF ([id number])Indication: Diabetes type 2, uncontrolled On: 2-Jck-998909:59 Request Lipid Panel ([id number])Indication: Vitamin D deficiency, unspecified On: :12 Request HEPATIC FUNCTION PANEL (02730)Indication: Vitamin D deficiency, unspecified On: :12 Request LIPID PANEL ([id number])Indication: Vitamin D deficiency, unspecified On: 9-Jik-587084:04 Request CBC with manual diff ([id number])Indication: Leukopenia On: 57-Zlp-481083:14 Request VITAMIN B12 AND FOLATES ([id number])Indication: Leukopenia On: 37-Uzn-247198:14 Request TSH ([id number])Indication: Diabetes type 2, uncontrolled On: 00-Tfe-488401:42 Request URINALYSIS, W/ MICRO ([id number])Indication: Diabetes type 2, uncontrolled On: :42 Request MICROALBUMIN: CREATININE RATIO ([id number]) AND ([id number])Indication: Diabetes type 2, uncontrolled On: :42 Request METABOLIC PANEL, COMPREHENSIVE ([id number])Indication: Diabetes type 2, uncontrolled On: :42 Request CBC WITH MANUAL DIFF ([id number])Indication: Diabetes type 2, uncontrolled On: : Request CALCIFIDIOL ([id number]) VIT D 25Indication: Vitamin D deficiency, unspecified On: :42 Request LIPID PANEL ([id number])Indication: Mixed hyperlipidemia On: :06 Request TSH ([id number])Indication: Diabetes type 2, uncontrolled On: :33 Request MICROALBUMIN: CREATININE RATIO ([id number]) AND ([id number])Indication: Diabetes type 2, uncontrolled On: :33 Request METABOLIC PANEL, COMPREHENSIVE ([id number])Indication: Diabetes type 2, uncontrolled On: :33 Request LIPOPROTEIN, BLD, BY NMR ([id number])Indication: Diabetes type 2, uncontrolled On: :33 Request LIPID PANEL ([id number])Indication: Diabetes type 2, uncontrolled On: :33 Request CBC WITH MANUAL DIFF ([id number])Indication: Diabetes type 2, uncontrolled On: 52-Oxs-373594:33 Request LIPID PANEL (40441)Indication: Mixed hyperlipidemia On: :25 Request LIPOPROTEIN, BLD, BY NMR ([id number])Indication: Mixed hyperlipidemia On: :25 Request Comments: DO IN 3 MONTHS TSH ([id number])Indication: Controlled diabetes mellitus type II without complication On: :34 Request MICROALBUMIN: CREATININE RATIO ([id number]) AND ([id number])Indication: Controlled diabetes mellitus type II without complication On: :34 Request METABOLIC PANEL, COMPREHENSIVE ([id number])Indication: Controlled diabetes mellitus type II without complication On: :34 Request LIPOPROTEIN, BLD, BY NMR ([id number])Indication: Controlled diabetes mellitus type II without complication On: 01-Vpd-113743:34 Request LIPID PANEL ([id number])Indication: Controlled diabetes mellitus type II without complication On: 37-Ths-166779:34 Request CBC WITH MANUAL DIFF ([id number])Indication: Controlled diabetes mellitus type II without complication On: 77-Vjv-760076:34 Request MICROALBUMIN: CREATININE RATIO ([id number]) AND ([id number])Indication: Controlled diabetes mellitus type II without complication On: 66-Fay-355075:08 Request URINALYSIS W/O MICRO ([id number])Indication: Benign essential hypertension On: 97-Ggf-738056:08 Request TSH ([id number])Indication: Benign essential hypertension On: 57-Fjz-412996:08 Request LIPID PANEL ([id number])Indication: Benign essential hypertension On: :08 Request METABOLIC PANEL, COMPREHENSIVE ([id number])Indication: Benign essential hypertension On: 35-Mgs-770651:08 Request CBC WITH MANUAL DIFF ([id number])Indication: Benign essential hypertension On: 09-Tbl-922540:08 Request HEPATIC FUNCTION PANEL ([id number])Indication: Mixed hyperlipidemia On: 00-Kzu-337612:58 Request TSH ([id number])Indication: Controlled diabetes mellitus type II without complication On: 75-Jcd-428606:17 Request MICROALBUMIN: CREATININE RATIO (68871) AND ([id number])Indication: Controlled diabetes mellitus type II without complication On: 35-Fqg-390490:17 Request METABOLIC PANEL, COMPREHENSIVE ([id number])Indication: Controlled diabetes mellitus type II without complication On: 71-Zwh-713319:17 Request CBC WITH MANUAL DIFF ([id number])Indication: Controlled diabetes mellitus type II without complication On: 45-Mgu-613190:17 Request LIPID PANEL ([id number])Indication: Controlled diabetes mellitus type II without complication On: 77-Vvl-578556:17 Request LIPID PANEL (42951)Indication: Mixed hyperlipidemia On: 5-Dag-086509:46 Request Glucose, PP/2 Hour (57662)Indication: Other specified abnormal findings of blood chemistry On: :06 Request LIPID PANEL ([id number])Indication: Mixed hyperlipidemia On: :06 Request Comments: do in 4 months TSH ([id number])Indication: Fatigue On: 8-Lqd-726516:31 Request Folate ([id number])Indication: Fatigue On: 3-Kgl-896605:31 Request VITAMIN B-12 (CYANOCOBALAMIN) ([id number])Indication: Fatigue On: : Request SED RATE ERYTHROCYTE ([id number])Indication: Fatigue On: : Request RHEUMATOID FACTOR-QUANT (30963)Indication: Fatigue On: : Request C-REACTIVE PROTEIN ([id number])Indication: Fatigue On: : Request METABOLIC PANEL, COMPREHENSIVE ([id number])Indication: Fatigue On: Request CBC (AUTO) ([id number])Indication: Fatigue On: Request TYESHA (ANTINUCLEAR ANTIBODY) (46840)Indication: Fatigue On: Request TSH ([id number])Indication: Hypertension On: Request URINALYSIS W/O MICRO ([id number])Indication: Hypertension On: Request MICROALBUMIN URINE QUANT ([id number])Indication: Hypertension On: : Request METABOLIC PANEL, COMPREHENSIVE ([id number])Indication: Hypertension On: : Request CBC WITH MANUAL DIFF ([id number])Indication: Hypertension On: : Request LIPID PANEL (86074)Indication: Mixed hyperlipidemia On: :28 Request METABOLIC PANEL, BASIC (85761)Indication: Hypertension On: :57 Request Comments: do before next appt Planned Encounters Medical; 3 Month FU - On: 24-Nov-2018 14:00 [facility] Kalyn Forbes DO, DO, Kathleen Planned Procedures CT - Chest (IV Contrast Needed)By: On: 08-Sep-2018 Intent Kalyn Forbes DO, DO, Kathleen PHYSICAL THERAPY ([id number])By: On: 07-Sep-2018 Intent Brenda Jonse Radiology - Cervical SpineBy: On: 07-Sep-2018 Intent Brenda Jones Radiology - Shoulder - RightBy: On: 07-Sep-2018 Intent Brenda Jones Toradol Injection, 30 mg On: 07-Sep-2018 Intent ([id number])By: Brenda Jones Comments: toradol 30mg injection lot:[id number]:7/2020R 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,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 Spirometry (32113)By: Evan CAMPBELL, On: 26-May-2018 Intent Kalyn Meyer DO Comments: really poor technique -- ELECTROCARDIOGRAM, COMPLETE (ECG) On: 17-Feb-2018 Intent ([id number])By: Kalyn Forbes DO Comments: nsr no acute chg Kalyn Forbes DO Spirometry ([id number])By: Evan CAMPBELL, On: 01-Jul-2017 Intent Kalyn Meyer DO Comments: mmild restirctive- asx- poor technique??-- didnt order TLC now since asx -- will follow ELECTROCARDIOGRAM, COMPLETE (ECG) On: 18-Mar-2017 Intent ([id number])By: Kalyn Forbes DO Comments: nsr no acute chg Kalyn Forbes DO Spirometry ([id number])By: Evan CAMPBELL, On: 30-Apr-2016 Intent Kalyn Meyer DO Comments: mild obstruction -- enc to take advair more routinely EKG (41295)By: Evan CAMPBELL, On: 04-Apr-2015 Intent Kalyn Meyer DO Comments: nsr no acute chg IMMUNIZ ADMNIN, 1 VAC, SNGL/COMBO On: 05-Jul-2014 Intent ([id number])By: Kalyn Forbes DO Comments: lot [id number] 10/23/15location L armroute imgiven by - msmith VIS and/or ABN signed Kalyn Forbes DO PNEUM VAC ADLT/IMUMNOSPR, On: 05-Jul-2014 Intent SBC/INTRM ([id number])By: Kalyn Forbes DO, DO, Kathleen EKG (76312)By: Evan CAMPBELL, On: 01-Apr-2014 Intent Kalyn Meyer DO Comments: nsr no acute chg Eprescribed prescriptions On: 01-Oct-2013 Intent (G8553)By: Kalyn Forbes DO, DO, Kathleen Eprescribed prescriptions On: 29-Jun-2013 Intent (G8553)By: Brenda Arthur LPN Spirometry ([id number])By: Evan CAMPBELL, On: 30-Mar-2013 Intent Kalyn Meyer DO Comments: normal EKG (40093)By: Evan CAMPBELL, On: 30-Mar-2013 Intent Kalyn Meyer DO Comments: nsr no acute chg Eprescribed prescriptions On: 30-Mar-2013 Intent (G8553)By: Brenda Arthur LPN Eprescribed prescriptions On: 25-Dec-2012 Intent (G8553)By: Oksana Caldera Eprescribed prescriptions On: 04-Dec-2012 Intent (G8553)By: Melissa Romero Eprescribed prescriptions On: 17-Oct-2012 Intent (G8553)By: Brenda Arthur LPN Eprescribed prescriptions On: 11-Sep-2012 Intent (G8553)By: Amy Wilder LPN Spirometry ([id number])By: Evan CAMPBELL, On: 21-Feb-2012 Intent Kalyn Meyer DO Comments: restrictive -- but so poor techniq - dont want to put alot of weight on that Eprescribed prescriptions On: 02-Jul-2011 Intent (G8553)By: Kalyn Forbes DO, DO, Kathleen Radiology - Lumbar SpineBy: Evan On: 31-May-2011 Intent Kalyn CAMPBELL DO, Kathleen Eprescribed prescriptions On: 10-May-2011 Intent (G8553)By: Kalyn Forbes DO, DO, Kalyn Eprescribed prescriptions On: 03-Feb-2011 Intent (G8553)By: Kalyn Forbes DO, DO, Kathleen Nuclear Medicine - Bone ScanBy: On: 23-Nov-2010 Intent Kalyn Forbes DO, DO, Comments: Please CC to Masci's office also. 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 will try but lets see what bid EKG (49591)By: Evan CAMPBELL, On: 20-Jul-2010 Intent Kalyn Meyer DO Comments: nsr no acute chg Spirometry (17194)By: Evan CAMPBELL, On: 08-Oct-2009 Intent Kalyn Meyer DO Comments: obstruction but poor tch EKG ([id number])By: Wily ROBLEDO, On: 30-May-2009 Intent Maria Del Rosario Comments: nsr no acute changes THER/PROPH/DIAG IV INF, INIT On: 07-Mar-2009 Intent ([id number])By: CORBIN Kwok INFUSION, NORMAL SALINE SOLUTION , On: 07-Mar-2009 Intent 250 CC (J7050)By: CORBIN Kwok Rocephin Injection, 2 Gram On: 07-Mar-2009 Intent (J0696)By: CORBIN Kwok Comments: Lot #:[id number] date:mount given:2 grams Route:IV Site given:left hand Given by: casafused without diff patient voiced no complaints INFUSION, NORMAL SALINE SOLUTION , On: 06-Mar-2009 Intent 1000 CC (Special Coverage Instructions Apply. See MCM: 2049) (J7030)By: Lavonne French CNP HYDRATION IV INFUSION, INIT On: 06-Mar-2009 Intent (49520)By: Lavonne French CNP Rocephin Injection, 2 Gram On: 06-Mar-2009 Intent (J0696)By: Lavonne French CNP Spirometry ([id number])By: Evan CAMPBELL, On: 15-Nov-2008 Intent Kalyn Meyer DO Comments: done-AWpoor effort -- obstruciton -- asx not using resuce inhaler MRI - OtherBy: Kalyn Forbes DO On: 19-Aug-2008 Intent Kalyn Forbes DO Comments: Left Arm Inhaler Demo ([id number])By: Evan CAMPBELL, On: 10-Jul-2008 Intent Kalyn Meyer DO Comments: done km Aerosol Treatment ([id number])By: On: 10-Jul-2008 Intent Kalyn Forbes DO, DO, Comments: done with albuterol 0.83%better air exchange no wheeze Kalyn Solu- Medrol Injection, 125mg On: 10-Jul-2008 Intent (J2930)By: Kalyn Forbes DO Comments: 2ml given im lt hip lot oatd6 exp 5-11 Kalyn Forbes DO Inhaler Demo (47550)By: Evan CAMPBELL, On: 08-Nov-2007 Intent Kalyn Meyer DO Solu- Medrol Injection, 125mg On: 08-Nov-2007 Intent (J2930)By: Kalyn Forbes DO Comments: 2ml given imk lt hip lot oajmt exp 9-10 Kalyn Forbes DO Aerosol Treatment ([id number])By: On: 08-Nov-2007 Intent Kalyn Forbes DO, DO, Comments: doneMORE AIR EXCHANGE AND NO JUNKY NOISE ANYMORE Kalyn Radiology - Chest- PA and LatBy: On: 08-Nov-2007 Intent Kalyn Forbes DO, DO, Kathleen Spirometry ([id number])By: Evan CAMPBELL, On: 08-Nov-2007 Intent Kalyn Meyer DO Comments: done kmNORMAL Radiology - Foot - LeftBy: Evan On: 03-Aug-2007 Intent Kalyn CAMPBELL DO, Kathleen Nuclear Stress Test/Stress On: 03-Apr-2007 Intent SPECT/TreadmillBy: Evan CAMPBELL, Comments: heart group to read Kalyn Meyer DO Echo CompleteBy: Evan CAMPBELL, On: 03-Apr-2007 Intent Kalyn Meyer DO Comments: heart group to read EKG ([id number])By: Evan CAMPBELL, On: 03-Apr-2007 Intent Kalyn Meyer DO Comments: nsr no acute ischemic changes SHAVE LESION, On: 31-Oct-2006 Intent FACE/LID/EAR/NOSE/LIP (44445)By: Kalyn Forbes DO, DO Kalyn Spirometry ([id number])By: Evan CAMPBELL, On: 19-Sep-2006 Intent Kalyn Meyer DO Comments: moderate obstruction--on no inhalers encouraged her to resume advair discus and will repeat in one month EKG ([id number])By: Evan CAMPBELL, On: 19-Sep-2006 Intent Kalyn Meyer DO Comments: nsr no acute ischemic changes Planned Medications INJECTION, KETOROLAC TROMETHAMINE, PER 15 MG Ordered: 07-Sep-2018 Pending Brenda Jones Instructions Name Dates Details BMI 27.0-27.9,adult : How to access health information online Indication: BMI 27.0-27.9,adult BMI 27.0-27.9,adult : How to access health information online - Detail Indication: BMI 27.0-27.9,adult Right shoulder pain : Patient Instructions Indication: Right shoulder pain Diabetes type 2, uncontrolled : How to [...] Controlled diabetes mellitus type II without complication Advance Directives Name Dates Details Immunization Registry [place] - Effective on Effective: 25-Aug-201808/25/2018. Expiration date unspecified Encounters Annotation/Addendum On: 19-Sep-2018 14:25 Encounter Diagnosis: Unspecified Diagnosis End: 19-Sep-2018 14:26 [facility] Phone Encounter On: 18-Sep-2018 15:27 Encounter Diagnosis: Lung infiltrate End: 18-Sep-2018 15:31 [facility] Annotation/Addendum On: 08-Sep-2018 16:29 Encounter Diagnosis: Mass of upper lobe of right lung End: 08-Sep-2018 16:31 [facility] Office Visit On: 07-Sep-2018 7:00 Encounter Reason: Shoulder Problem - The patient is right hand dominant. The injury involved the right shoulder. Symptoms include shoulder pain and decreased range of motion. Symptoms are located in the right shoulder. T End: 07-Sep-2018 9:21 he pain radiates to the right elbow and right upper arm. Onset was 3 week(s) ago. Note for Shoulder problem: Symptoms started about 3 weeks ago off and on with pain and then last night was very painfu l and couldn't sleep due to the pain-used right hand doing a lot of repetative work and now can you. Decreased ROM-has trouble pulling arm back and raising. Pain and achiness starts at shoulder and ends just below elbow in right arm. No numbness or tingling-no neck pain. NO known injury. NO fever, chills, night sweats. Has tried Biofreeze, and ice-no relief. No OTC pain relief.Encounter Diagnosis: Non-smoker, BMI 27.0-27.9,adult, Right shoulder pain, Decreased ROM of right shoulder [facility] Office Visit On: 25-Aug-2018 13:41 Encounter Reason: Follow up for chronic medical issues - The patient feels well with minor complaints, has good energy level and is sleeping well. Patient has been compliant with instructions. Current medication use: no End: 25-Aug-2018 14:20 side effects and compliant with dosing regimen. Patient sleeps 7 hours per night. Nutrition: balanced diet and supplemental vitamins. The medical issues the patient is following up for include All ident ified problems below, blood sugar issues, high blood pressure and high cholesterol. fasting blood sugars : and weight :.Encounter Diagnosis: Vitamin D deficiency, unspecified, Asthma, Hypertension, benign, Mixed hyperlipidemia, Diabetes type 2, uncontrolled [facility] Office Visit On: 26-May-2018 14:55 Encounter Reason: [...] (203.11) [facility] Office Visit On: 17-Feb-2018 [...] has been compliant with instructions. Current medication us End: 25-Jan-2014 13:35 e: non-compliant with dosing [...] has been compliant with instructions. Current medication us End: 03-Nov-2012 13:38 e: experiencing side effects. [...] intolerance: [place] [facility] [place] was [...] Encounter Reason: Follow up tests - Date: (11/17/11 labs and 11-13-11)., [ADDITIONAL REASON] Follow up [...] (238.9), ASTHMA, UNSPECIFIED, WITH ACUTE EXACERBATION (493.92), [facility] V72.31 [facility] Office Visit On: [...] (300.00) [facility] Payers Lisette MENARD/Bobbi Lara; a guarantor
--- OUTSIDE RECORDS SUMMARY | 2018-11-18 16:22 | XMS RPT_ITS | Continuity of Care Document ---
:1955 Author Organization [facility] Address [address] [facility] [address] [place] [address] Phone Care Team Providers Name Role Phone Kalyn Forbes DO Unavailable Dr. Fidencio Tobar MD Unavailable Dr. Bethany Hutchison Unavailable Kalyn Forbes DO Unavailable Jamari Eldridge DO Unavailable Maxi Valadez Unavailable Unavailable VENKAT Arthur Unavailable Unavailable Brenda Jones Unavailable Unavailable Madhuri De La Paz Unavailable Unavailable Unavailable Unavailable Problems Name Dates [...] Dysuria (R30.0, 788.1) Comments: cont to drink ae4neuuyqd juice Status: Active Eustachian tube dysfunction (H69.80, [...] masci thnks they will resolve-- Status: Active Lung infiltrate [...] days Quantity: 1 {Bottle} Refills: 0 Ordered:23-Apr-2015 Manolo CRAWFORD Monet Start : 23-Apr-2015 Active FREESTYLE LITE TEST [...] Quantity: 360 {Tablet} Refills: 3 Ordered:21-Apr-2018 Chris Forbse DO, DO, Kathleen Start : 21-Apr-2018 Active [...] Quantity: 1 {Inhaler} Refills: 0 Ordered:07-Oct-2017 Brenda Arhtur LPN Start : 07-Oct-2017 Active Victoza 18 [...] days Quantity: 20 {Tablet} Refills: 0 Ordered:23-Apr-2015 Roselinekarennavi CRAWFORD Monet Start : 23-Apr-2015 End : 03-May-2015 Inactive [...] Quantity: 30 {Capsule} Refills: 0 Ordered:30-Mar-2013 Brenda Atrhur LPN Start : 01-Jan-2013 End : 30-Mar-2013 [...] End : 11-Jul-2015 Inactive Comments:std process DRISDOL, 43264CWNI (Oral Capsule) 1 Capsule qweek for 360 [...] End : 19-Nov-2011 Inactive Comments:ten VITAMIN D, 92087WAQH (Oral Capsule) 1 q week (74606 U) Inactive VITAMIN D3, 2000UNIT (Oral Capsule) 1 (one) Capsule Capsule qd for 120 days Refills: 0 Ordered:07-Feb-2014 Brenda Arthur LPN Start : 01-Oct-2013 End : 29-Jan-2014 Inactive VITAMIN D3, 27669WUXR (Oral Capsule) 1 Capsule weekly for 0 [...] days Quantity: 20 {Tablet} Refills: 0 Ordered:30-Apr-2016 SlaFatuma kaplan LPN Start : 25-Mar-2016 End : 30-Apr-2016 [...] felt fine and no fever now-called to [facility] in [place] Status: Inactive as of 30-Mar-2013 Cellulitis of [...] WWV V72.31 Comments: colonscopy 2007 Dr. modesta ugatre, talk about skin screen with assoc melanoma and breast ca Status: Inactive as of 12-Jan-2010 Procedures Procedure Dates Details Colonoscopy Completed Comments: 08/14/07 - Dr. Cramer Hysterectomy; Total Completed Comments: 02/12/13 Tonsillectomy Completed Date Value Details 14-Sep-2018 Chest WITH Contrast Result: Comments: See Note; NOTES: [facility] Imaging Services [address] [place] [address] Chest WITH Contrast MR#: [id number] Acct: [id number] Name: LAZARA LARA Rep #: [id number] : 1955 F 62 From: Artemio Guerra PCP: Kalyn Forbes DO Status: REG CLI Study: Chest WITH Contrast Date of Exam: 09/14/18 Exam# [id number] Ordering Dr: Kalyn Forbes DO STUDY: CT [...] Service support , CC: Kalyn Forbes DO Tree And Shrub Technician: Signed 07-Sep-2018 Cerv Spine 2 or 3 Views Result: Comments: See Note; NOTES: [facility] Imaging Services [address] [place] [address] Cerv Spine 2 or 3 Views MR#: [id number] Acct: [id number] Name: LAZARA LARA Rep #: [id number] : 1955 F 62 From: Aleksandr Velasquez DO PCP: Kalyn Forbes DO Status: REG CLI Study: Cerv Spine 2 or 3 Views Date of Exam: 09/07/18 Exam# [id number] Ordering Dr: Brenda Jones HANDLE ROUNDER OPERATOR-C STUDY: X-RAY - CERVICAL SPINE REASON FOR [...] Velasquez DO at 23:2 3 EST Tel [phone], Service support , CC: JERRELL Jones; Kalyn Forbes DO Tree And Shrub Technician: Signed 07-Sep-2018 Cerv Spine 2 or 3 Views Result: Comments: See Note; NOTES: [facility] Imaging Services [address] [place] [address] Cerv Spine 2 or 3 Views MR#: [id number] Acct: [id number] Name: LAZARA LARA Rep #: [id number] : 1955 F 62 From: Aleksandr Velasquez DO PCP: Kalyn Forbes DO Status: REG CLI Study: Cerv Spine 2 or 3 Views Date of Exam: 09/07/18 Exam# [id number] Ordering Dr: Brenda Jones STUDY: X-RAY - [...] Velasquez DO at 23:2 3 EST Tel [phone], Service support , CC: JERRELL Forbes DO Tree And Shrub Technician: Signed 07-Sep-2018 Shoulder min 2 Views Result: Comments: See Note; NOTES: [facility] Imaging Services [address] [place] [address] Shoulder min 2 Views MR#: [id number] Acct: [id number] Name: LAZARA LARA Rep #: [id number] : 1955 F 62 From: Aleksandr Velasquez DO PCP: Kalyn Forbes DO Status: REG CLI Study: Shoulder min 2 Views Date of Exam: 09/07/18 Exam# [id number] Ordering Dr: Brenda Jones STUDY: X-RAY - [...] Aleksandr Velasquez DO at 22:37 EST Tel [phone], Service support 09-05 [phone], CC: JERRELL Jones; Kalyn Forbes DO Tree And Shrub Technician: Signed 07-Sep-2018 Shoulder min 2 Views Result: Comments: See Note; NOTES: [facility] Imaging Services [address] [place] [address] Shoulder min 2 Views MR#: [id number] Acct: [id number] Name: LAZARA LARA Rep #: [id number] : 1955 F 62 From: Aleksandr Velasquez DO PCP: Kalyn Forbes DO Status: REG CLI Study: Shoulder min 2 Views Date of Exam: 09/07/18 Exam# [id number] Ordering Dr: Brenda Jones STUDY: X-RAY - [...] Aleksandr Velasquez DO at 22:37 EST Tel [phone], Service support 09-05 [phone], CC: JERRELL Jones; Kalyn Forbes DO Tree And Shrub Technician: Signed 04-Apr-2015 Spirometry (16610) Comments: restriction disease-technique dependent Result: 01-Apr-2014 Spirometry (86061) Comments: normal Result: Family History Unknown Family [...] kg/m2 Body Surface Area Calculated 1.81 m2 1-Qst-102077:18 Pulse 94 /min Comments: Pattern: Regular Respiration [...] 0.00 cm Results Date Description Value Details :57 CREATININE FINGERSTICK Comments: [facility] [address] [place] [address] EGFR WB 57.0000 mL/min (Abnormal) CREATININE WB 1.0 mg/dL (Normal) Range: 0.55-1.02 83-Wtf-782878:29 LIPOPROTEIN, BLD, BY NMR Comments: PATIENT WAS FASTINGPERFORMED BY: LabCoTodd [place] 531277 [facility] [id number] (78554) LP-IR Score 59 (Abnormal) Comments: INSULIN RESISTANCE MARKER <--Insulin Sensitive Insulin Resistant--> Percentile in Reference PopulationInsulin Resistance ScoreLP-IR Score Low 25th 50th 75th High <27 27 45 63 >63LP-IR Score is inaccurate if patient is non-fasting. .The LP-IR score is a laboratory developed i [facility] that has beenassociated with insulin resistance and [...] were developed and their performance characteristicsdetermined by Moya Okruga. These assays have not been cleared by [...] High > 2000 :42 HgA1C , Office (66428) HgA1C , Office 7.5 % (Abnormal) Range: 4.6 - 7.1 :42 Blood Glucose , Office (00883) Blood Glucose , Office 157 (Normal) :56 HgA1C , Office (65905) HgA1C , Office 6.7 % (Normal) Range: 4.6 - 7.1 :56 Blood Glucose , Office (23073) Blood Glucose , Office 150 (Normal) :42 HgA1C , Office (01330) HgA1C , Office 6.2 % (Normal) Range: 4.6 - 7.1 :19 HgA1C , Office (86654) HgA1C , Office 7.1 % (Normal) Range: 4.6 - 7.1 :19 Blood Glucose , Office (91565) Blood Glucose , Office 89 (Normal) :25 HgA1C , Office (55332) HgA1C , Office 6.9 % (Normal) Range: 4.6 - 7.1 :25 Blood Glucose , Office (76214) Blood Glucose , Office 112 (Normal) :14 HgA1C , Office (78081) HgA1C , Office 6.5 % (Normal) Range: 4.6 - 7.1 :14 Blood Glucose , Office (56211) Blood Glucose , Office 159 (Normal) :48 HgA1C , Office (39621) HgA1C , Office 6.4 % (Normal) Range: 4.6 - 7.1 :48 Blood Glucose , Office (66563) Blood Glucose , Office 91 (Normal) :39 Microscopic Examination Comments: PATIENT WAS FASTINGPERFORMED BY: [facility] Zwjsio7341 [facility] [place] [id number] Bacteria Few (Normal) Mucus Threads Present (Normal) Epithelial Cells (non renal) 0-10 {/hpf} (Normal) Range: 0 - 10 RBC 0-2 {/hpf} (Normal) Range: 0 - 2 WBC 0-5 {/hpf} (Normal) Range: 0 - 5 :39 CALCIFIDIOL (01837) VIT D 25 Comments: PATIENT WAS FASTINGPERFORMED BY: [employer]6370 [facility] [id number] Vitamin D, 25-Hydroxy 37.4 ng/mL (Normal) Range: 30.0-100.0 Comments: Vitamin D deficiency has been defined by the [place] ofMedicine and an Endocrine Society practice guideline as alevel of serum 25-OH vitamin D less than 20 ng/mL (1,2).The Endocrine Society went on to further define vitamin Dinsufficiency as a level between 21 and 29 ng/mL (2).1. IOM ([place] of Medicine). 2010. Dietary reference intakes for calcium and D. [place]: The National Academies Press.2. Elizabeth MF, Charles NC, Silke BATISTA, et al. Evaluation, treatment, and prevention of vitamin D deficiency: an Endocrine Society clinical practice guideline. JCEM. 2010; 96(7):1911-30. :39 TSH (31776) Comments: PATIENT WAS FASTINGPERFORMED BY: LabKlick2Contactrp Iyasbx3509 [facility] HospitalD[facility] [place] [id number] TSH 1.340 {uIU/mL} (Normal) Range: 0.450-4.500 :39 URINALYSIS, W/ MICRO (67123) Comments: PATIENT WAS FASTINGPERFORMED BY: [facility]HealthSaint [facility] Medical CenterSauswa6281 [facility] [id number] Microscopic Examination See below: (Normal) Comments: Microscopic was indicated and was performed. Microscopic Examination MICRON (Normal) Comments: Microscopic follows if indicated. Nitrite, Urine Negative (Normal) Urobilinogen,Semi-Qn 0.2 mg/dL (Normal) Range: 0.2-1.0 Bilirubin Negative (Normal) Occult Blood Negative (Normal) Ketones Negative (Normal) Glucose Trace (Abnormal) Protein Negative (Normal) WBC Esterase Negative (Normal) Appearance Clear (Normal) Urine-Color Yellow (Normal) pH 6.0 (Normal) Range: 5.0-7.5 Specific [place] 1.021 (Normal) Range: 1.005-1.030 :39 MICROALBUMIN: CREATININE RATIO Comments: PATIENT WAS FASTINGPERFORMED BY: [employer]Saint [facility] Medical CenterSwankh9622 [facility] [id number] (41142) AND (73940) Microalb/Creat Ratio <3.1 {mg/g_creat} (Normal) Range: 0.0-30.0 Microalbumin, Urine <3.0 ug/mL (Normal) Creatinine, Urine 97.1 mg/dL (Normal) :39 METABOLIC PANEL, COMPREHENSIVE Comments: PATIENT WAS FASTINGPERFORMED BY: [facility]HealthSaint [facility] Medical CenterCxtect3221 [facility] [id number] (16128) ALT (SGPT) 40 [iU]/L (Abnormal) Range: 0-32 [...] mg/dL (Abnormal) Range: 65-99 :39 LIPID PANEL (82023) Comments: PATIENT WAS FASTINGPERFORMED BY: [facility]70 [facility] [id number] LDL/HDL Ratio 1.9 {ratio_units} (Normal) Range: 0.0-3.2 [...] DIFF WBC Comments: PATIENT WAS FASTINGPERFORMED BY: [facility]70 [facility] [id number] Information: [id number] (59731) Immature Grans (Abs) 0.0 {x10E3/uL} (Normal) Range: [...] Range: 3.4-10.8 :56 Blood Glucose , Office (00769) Blood Glucose , Office 130 (Normal) 43-Znn-572150:41 HgA1C , Office (51094) HgA1C , Office 6.8 % (Normal) Range: 4.6 - 7.1 19-Hha-636409:41 Blood Glucose , Office (67829) Blood Glucose , Office 92 (Normal) 16-Gti-761279:03 LIPID PANEL (42902) Comments: PATIENT WAS FASTINGPERFORMED BY: LabCoSaint Francis Medical CenterItskbs8275 [facility] [id number] Information: [id number] LDL/HDL Ratio 2.4 {ratio_units} (Normal) Range: 0.0-3.2 [...] Cholesterol, Total 203 mg/dL (Abnormal) Range: 100-199 :03 CALCIFIDIOL (02681) VIT D 25 Comments: PATIENT WAS FASTINGPERFORMED BY: LabCoSaint Francis Medical CenterPsdzyv8183 [facility] [id number] Vitamin D, 25-Hydroxy 26.2 ng/mL (Abnormal) Range: 30.0-100.0 Comments: Vitamin D deficiency has been defined by the [facility]Way[facility] Hospitalcine and an Endocrine Society practice guideline as alevel of serum 25-OH vitamin D less than 20 ng/mL (1,2).The Endocrine Society went on to further define vitamin Dinsufficiency as a level between 21 and 29 ng/mL (2).1. IOM ([place] of Medicine). 2010. Dietary reference intakes for calcium and D. [place]: The National Academies Press.2. Elizabeth MF, Charles NC, Silke BATISTA, et al. Evaluation, treatment, and prevention of vitamin D deficiency: an Endocrine Society clinical practice guideline. JCEM. 2010; 96(7):1911-30. :11 Blood Glucose , Office (96516) Blood Glucose , Office 118 (Normal) :10 HgA1C , Office (30065) HgA1C , Office 6.4 % (Normal) Range: 4.6 - 7.1 :02 Blood Glucose , Office (61593) Blood Glucose , Office 103 (Normal) :02 HgA1C , Office (29976) HgA1C , Office 6.7 % (Normal) Range: 4.6 - 7.1 :25 HgA1C , Office (07756) HgA1C , Office 6.2 % (Normal) Range: 4.6 - 7.1 :25 Blood Glucose , Office (91911) Blood Glucose , Office 135 (Normal) :27 Blood Glucose , Office (17730) Blood Glucose , Office 73 (Normal) :27 HgA1C , Office (40227) HgA1C , Office 5.9 % (Normal) Range: 4.6 - 7.1 :46 HgA1C , Office (01003) HgA1C , Office 5.8 % (Normal) Range: 4.6 - 7.1 :46 Blood Glucose , Office (16759) Blood Glucose , Office 118 (Normal) :58 HgA1C , Office (18814) HgA1C , Office 5.9 % (Normal) Range: 4.6 - 7.1 :58 Blood Glucose , Office (12780) Blood Glucose , Office 75 (Normal) :58 HgA1C , Office (02946) HgA1C , Office 5.6 % (Normal) Range: 4.6 - 7.1 :58 Blood Glucose , Office (10289) Blood Glucose , Office 99 (Normal) 57-Rel-652790:06 BMP GAP 10 (Normal) Range: 5-15 CO2 [...] 7-18 GLU 100 mg/dL (Normal) Range: 70-110 01-Igh-389159:06 LIPID VLDL 20 mg/dL (Normal) Range: 5-40 [...] CHOL 207 mg/dL (Abnormal) Comments: <200 mg/dL Txsylutuh913-182 mg/dL Borderline>240 mg/dL High Risk 85-Pak-118206:06 MIACRE MIALB 10.6 mg/L (Normal) tMICROCREAT 8.1 {mg/g_CRE} (Normal) CREU 130.8 mg/dL (Normal) 52-Mje-730472:06 TSH 1.00 {uIU/mL} (Normal) Range: 0.358-3.74 31-Fdv-303686:06 VITD 50.4 mg/mL (Normal) Comments: Vitamin D 25(OH) Status RangeDeficiency <20 ng/mL (50nmol/L)Insuffciency 20 - 30 ng/mL (50 - 75 nmol/L)Sufficiency 30 - 100 ng/mL (75 - 250 nmol/L)Toxicity >100 ng/mL (>250 nmol/L) 6-Syx-610712:26 URINE KASHIF CULTURE-IDENTIFICATN Comments: PATIENT NOT FASTINGPERFORMED BY: LabCoSaint Francis Medical CenterVvfgwq3212 [facility] [id number] Information: [id number] (86998) Result 1 BETAGB (Abnormal) Comments: Beta hemolytic [...] (CLSI 2011) Urine Final report (Abnormal) Culture,Comprehensive 6-Ses-052423:07 Urinalysis, Office (48119) UA - LEUKOCYTE ESTERASE Small (Normal) UA - NITRITE Negative (Normal) URINE UROBILINGN ALEX TIMED Normal mg/dL (Normal) UA - PROTEIN Negative mg/dL (Normal) UA - PH 5 (Abnormal) UA - BLOOD Negative (Normal) UA - SPECIFIC GRAVITY 1.010 (Normal) UA - KETONES Negative mg/dL (Normal) UA - BILIRUBIN Negative (Normal) UA - GLUCOSE Negative (Normal) :06 HgA1C , Office (58622) HgA1C , Office 7.0 % (Normal) Range: 4.6 - 7.1 :06 Blood Glucose , Office (22548) Blood Glucose , Office 82 (Normal) :38 HgA1C , Office (11847) HgA1C , Office 6.4 % (Normal) Range: 4.6 - 7.1 :38 Blood Glucose , Office (38106) Blood Glucose , Office 106 (Normal) :47 CBCD ANC 2.3 {X10_3/uL} (Normal) Range: 2.0-7.7 [...] 4.2-5.4 WBC 4.4 K/mm3 (Normal) Range: 4.4-11.0 63-Cea-076556:47 CMP GAP 6 (Normal) Range: 5-15 CO2 [...] 126 mg/dLsuggests DIABETES MELLITUS per A.D.A. criteria. 52-Dbd-849289:47 LIPID LDL 121 mg/dL (Normal) Range: 0-130 [...] CHOL 198 mg/dL (Normal) Comments: <200 mg/dL Vvfmltwzt481-862 mg/dL Borderline>240 mg/dL High Risk 85-Kds-971199:47 MIACRE tMICROCREAT 5.7 {mg/g_CRE} (Normal) MIALB 5.0 mg/L (Normal) CREU 87.7 mg/dL (Normal) 81-Tip-659428:47 TSH 0.62 {uIU/mL} (Normal) Range: 0.358-3.74 17-Boh-826392:47 UAC Comments: How was Urine Obtained? CLEAN [...] - 250 nmol/L)Toxicity >100 ng/mL (>250 nmol/L) 7-Nea-688107:35 HgA1C , Office (82385) HgA1C , Office 6.1 % (Normal) Range: 4.6 - 7.1 5-Iqy-431710:35 Blood Glucose , Office (16989) Blood Glucose , Office 102 (Normal) :24 HgA1C , Office (50243) HgA1C , Office 5.9 % (Normal) Range: 4.6 - 7.1 :24 Blood Glucose , Office (29825) Blood Glucose , Office 375 (Normal) :13 [...] 126 mg/dLsuggests DIABETES MELLITUS per A.D.A. criteria. 88-Qgr-061268:13 LIPID VLDL 40 mg/dL (Normal) Range: 5-40 [...] CHOL 231 mg/dL (Abnormal) Comments: <200 mg/dL Lopqhqclp486-344 mg/dL Borderline>240 mg/dL High Risk :13 MIACRE tMICROCREAT 7.0 {mg/g_CRE} (Normal) MIALB 9.2 mg/L (Normal) CREU 130.6 mg/dL (Normal) 10-Wzd-822267:13 TSH 0.64 {uIU/mL} (Normal) Range: 0.358-3.74 :13 [...] (Normal) UCLAR Clear (Normal) UCOL Yellow (Normal) 75-Jlt-217590:13 VITD 28.1 ng/mL (Normal) Comments: Vitamin D 25(OH) Status RangeDeficiency <20 ng/mL (50nmol/L)Insufficiency 20 - 30 ng/mL (50 - 75 nmol/L)Sufficiency 30 - 100 ng/mL (75 - 250 nm ol/L)Toxicity >100 ng/mL (250 nmol/L) 19-Oem-158925:40 HgA1C , Office (30340) HgA1C , Office 7.1 % (Normal) Range: 4.6 - 7.1 :40 Blood Glucose , Office (30951) Blood Glucose , Office 123 (Normal) 42-Krd-564857:05 Blood Glucose , Office (02763) Blood Glucose , Office 176 (Normal) :43 HEPATIC FUNCTION PANEL Comments: PATIENT NOT FASTINGPERFORMED BY: LabCoSaint Francis Medical CenterKxaygn1819 [facility] [id number] Information: [id number] (86532) ALT (SGPT) 146 [iU]/L (Abnormal) Range: 0-32 AST (SGOT) 101 [iU]/L (Abnormal) Range: 0-40 Alkaline Phosphatase, S 94 [iU]/L (Normal) Range: 25-150 Bilirubin, Direct 0.20 mg/dL (Normal) Range: 0.00-0.40 Albumin, Serum 4.5 g/dL (Normal) Range: 3.5-5.5 Bilirubin, Total 0.6 mg/dL (Normal) Range: 0.0-1.2 Protein, Total, Serum 7.1 g/dL (Normal) Range: 6.0-8.5 :14 Blood Glucose , Office (85895) Blood Glucose , Office 193 (Normal) :11 MICROALBUMIN: CREATININE RATIO Comments: PATIENT WAS FASTINGPERFORMED BY: [employer] Ijfbzf2278 [facility] [id number] (26731) AND (32142) Microalb/Creat Ratio 3.8 {mg/g_creat} (Normal) Range: 0.0-30.0 Microalbumin, Urine 6.3 ug/mL (Normal) Range: 0.0-17.0 Creatinine, Urine 167.6 mg/dL (Normal) Range: 15.0-278.0 :11 METABOLIC PANEL, COMPREHENSIVE Comments: PATIENT WAS FASTINGPERFORMED BY: [facility]6370 [facility] [id number] (28271) ALT (SGPT) 59 [iU]/L (Abnormal) Range: 0-32 [...] Glucose, Serum 177 mg/dL (Abnormal) Range: 65-99 64-Vqp-51037:11 CBC WITH MANUAL DIFF Comments: PATIENT WAS FASTINGPERFORMED BY: LabCoUNM Carrie Tingley HospitalEnrdei0808 [facility] [id number] Information: [id number] (86614) Immature Grans (Abs) 0.0 {x10E3/uL} (Normal) Range: [...] {x10E3/uL} (Abnormal) Range: 4.0-10.5 :11 LIPID PANEL (90451) Comments: PATIENT WAS FASTINGPERFORMED BY: [facility]6370 [facility] [id number] LDL/HDL Ratio 2.9 {ratio_units} (Normal) Range: 0.0-3.2 LDL Cholesterol Calc 153 mg/dL (Abnormal) Range: 0-99 VLDL Cholesterol Josep 32 mg/dL (Normal) Range: 5-40 HDL Cholesterol 53 mg/dL (Normal) Comments: According to ATP-III Guidelines, HDL-C >59 mg/dL is considered anegative risk factor for CHD. Triglycerides 162 mg/dL (Abnormal) Range: 0-149 Cholesterol, Total 238 mg/dL (Abnormal) Range: 100-199 :11 Vitamin D Hydroxy (74968) Comments: PATIENT WAS FASTINGPERFORMED BY: LabCoSaint Francis Medical CenterMwldrt1922 [facility] [id number] Vitamin D, 25-Hydroxy 63.5 ng/mL (Normal) Range: 30.0-100.0 Comments: Vitamin D deficiency has been defined by the [place] ofMedicine and an Endocrine Society practice guideline as alevel of serum 25-OH vitamin D less than 20 ng/mL (1,2).The Endocrine Society went on to further define vitamin Dinsufficiency as a level between 21 and 29 ng/mL (2).1. IOM ([place] of Medicine). 2010. Dietary reference intakes for calcium and D. [place]: The National Academies Press.2. Elizabeth MF, Charles NC, Silke BATISTA, et al. Evaluation, treatment, and prevention of vitamin D deficiency: an Endocrine Society clinical practice guideline. JCEM. 2010; 96(7):1911-30. :10 HgA1C , Office (37020) HgA1C , Office 5.8 % (Normal) Range: 4.6 - 7.1 :10 Blood Glucose , Office (85628) Blood Glucose , Office 194 (Normal) Comments: fasting :15 HgA1C , Office (68598) HgA1C , Office 5.7 % (Normal) Range: 4.6 - 7.1 :15 Blood Glucose , Office (49764) Blood Glucose , Office 178 (Normal) :15 Vitamin D Hydroxy (83923) Comments: PATIENT NOT FASTINGPERFORMED BY: LabCoSaint Francis Medical CenterOhysty1248 [facility] [id number] Information: [id number] Vitamin D, 25-Hydroxy 60.0 ng/mL (Normal) Range: 30.0-100.0 Comments: Vitamin D deficiency has been defined by the [place] ofMedicine and an Endocrine Society practice guideline as alevel of serum 25-OH vitamin D less than 20 ng/mL (1,2).The Endocrine Society went on to further define vitamin Dinsufficiency as a level between 21 and 29 ng/mL (2).1. IOM ([place] of Medicine). 2010. Dietary reference intakes for calcium and D. [place]: The National Academies Press.2. Elizabeth MF, Charles NC, Silke BATISTA, et al. Evaluation, treatment, and prevention of vitamin D deficiency: an Endocrine Society clinical practice guideline. JCEM. 2010; 96(7):1911-30. :54 METABOLIC PANEL, Comments: PATIENT WAS FASTINGPERFORMED BY: LabCoSaint Francis Medical CenterWphsfq2154 [facility] [id number] Information: [id number] COMPREHENSIVE (06944) ALT (SGPT) 24 [iU]/L (Normal) Range: 0-40 [...] mg/dL (Abnormal) Range: 65-99 :54 LIPID PANEL (00730) Comments: PATIENT WAS FASTINGPERFORMED BY: [employer] [place] [id number] LDL/HDL Ratio 2.5 {ratio_units} (Normal) Range: 0.0-3.2 LDL Cholesterol Calc 144 mg/dL (Abnormal) Range: 0-99 VLDL Cholesterol Josep 28 mg/dL (Normal) Range: 5-40 HDL Cholesterol 58 mg/dL (Normal) Comments: According to ATP-III Guidelines, HDL-C >59 mg/dL is considered anegative risk factor for CHD. Triglycerides 141 mg/dL (Normal) Range: 0-149 Cholesterol, Total 230 mg/dL (Abnormal) Range: 100-199 :54 Vitamin D Hydroxy (37272) Comments: PATIENT WAS FASTINGPERFORMED BY: [facility]6370 [facility] [id number] Vitamin D, 25-Hydroxy 28.0 ng/mL (Abnormal) Range: 30.0-100.0 Comments: Vitamin D deficiency has been defined by the [place] ofMedicine and an Endocrine Society practice guideline as alevel of serum 25-OH vitamin D less than 20 ng/mL (1,2).The Endocrine Society went on to further define vitamin Dinsufficiency as a level between 21 and 29 ng/mL (2).1. IOM ([place] of Medicine). 2010. Dietary reference intakes for calcium and D. [place]: The National Academies Press.2. Elizabeth MF, Charles LUNDY, Silke BATISTA, et al. Evaluation, treatment, and prevention of vitamin D deficiency: an Endocrine Society clinical practice guideline. JCEM. 2010; 96(7):1911-30. 33-Yui-893024:35 HgA1C , Office (31111) HgA1C , Office 5.6 % (Normal) Range: 4.6 - 7.1 97-Dok-909377:35 Blood Glucose , Office (51638) Blood Glucose , Office 129 (Normal) :45 CBC With Differential/Platelet Comments: Test(s) WBC; Platelets; Neutrophils (Absolute) called to YUNIER Jenkins on 11/29/2011 at 14:08 ESTPATIENT WAS FASTINGPERFORMED BY: LabMclaren Northern Michigan6370 [facility] [id number] Hematology Comments: Note: (Normal) Comments: Manual differential [...] Test(s) WBC; Platelets; Neutrophils (Absolute) called to [employer] on 11/29/2011 at 14:08 ESTPATIENT WAS FASTINGPERFORMED BY: Millican [facility] [id number] Blasts/blast like cells 21 % (Abnormal) Range: 0 - 0 :45 Lipid Panel With LDL/HDL Comments: Test(s) WBC; Platelets; Neutrophils (Absolute) called to [employer] on 11/29/2011 at 14:08 ESTPATIENT WAS FASTINGPERFORMED BY: [facility]70 [facility] [id number] Ratio LDL/HDL Ratio 1.2 {ratio_units} (Normal) Range: [...] Test(s) WBC; Platelets; Neutrophils (Absolute) called to [employer] on 11/29/2011 at 14:08 ESTPATIENT WAS FASTINGPERFORMED BY: [employer] 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 Suggest bone marrowevaluation and flow cytometry and cytogenetics. Pathologist Comment: (Normal) Comments: This case was reviewed by Lila Kingsley M.D. PLTs Comment: (Normal) Comments: Thrombocytopenia.Few large platelets were observed. RBC Comment: (Normal) Comments: Decreased.Slight anisocytosis.Poikilocytosis.Rare nucleated RBC seen. WBC Comment: (Normal) Comments: Leukopenia. :54 HgA1C , Office (93363) HgA1C , Office 6.6 % (Normal) Range: 4.6 - 7.1 :54 Blood Glucose , Office (58159) Blood Glucose , 197 (Normal) Office Vitamin D, 23.4 ng/mL Comments: Test(s) WBC; Neutrophils (Absolute) called to Dr Wilson on 11/18/2011 at 05:44 ESTPATIENT NOT FASTINGPERFORMED BY: [facility] [id number] :05 25-Hydroxy (Abnormal) Range: 30.0-100.0 Comments: Vitamin D deficiency has been defined by the [place] [employer] and an Endocrine Society practice guideline as alevel of serum 25-OH vitamin D less than 20 ng/mL (1,2).The Endocrine Society went on to further define vitamin Dinsufficiency as a level between 21 and 29 ng/mL (2).1. IOM ([place] [employer]). 2010. Dietary reference intakes for calcium and D. [place]: The National Academies Press.2. Elizabeth MF, Charles NC, Silke BATISTA, et al. Evaluation, treatment, and prevention of vitamin D deficiency: an Endocrine Society clinical practice guideline. JCEM. 2010; 96(7):1911-30. 41-Zea-851023:05 BLD CNT, MANUAL CELL COUNT, Comments: Test(s) WBC; Neutrophils (Absolute) called to Dr Wilson on 11/18/2011 at 05:44 ESTPATIENT NOT FASTINGPERFORMED BY: [facility] Qgbeyv6243 [facility] [id number] EACH (61730) Hematology Comments: Note: (Normal) Comments: Verified by [...] 3.80-5.10 WBC 1.2 {x10E3/uL} (Abnormal) Range: 4.0-10.5 63-Zbx-628538:05 EBV Panel (67293) Comments: Test(s) WBC; Neutrophils (Absolute) called to Dr Wilson on 11/18/2011 at 05:44 ESTPATIENT NOT FASTINGPERFORMED BY: [facility]6370 [facility] [id number] Interpretation: SPRCS (Normal) Comments: EBV Interpretation Chart [...] <0.9 Equivocal 0.9 - 1.0 Positive >1.0 62-Eis-18616:55 CBCMD PATHR Reviewed (Normal) Comments: Leukopenia and [...] D deficiency has been defined by the [place] [employer] and an Endocrine Society practice guideline as alevel of serum 25-OH vitamin D less than 20 ng/mL (1,2).The Endocrine Society went on to further define vitamin Dinsufficiency as a level between 21 and 29 ng/mL (2).1. IOM ([place] [employer]). 2010. Dietary reference intakes for calcium and D. [place]: The National Academies Press.2. Elizabeth MF, Charles [place], Silke BATISTA, et al. Evaluation, treatment, and prevention of vitamin D deficiency: an Endocrine Society clinical practice guideline. JCEM. 2010; 96(7): 1911-30. .Effective November 01, 2011, Vitamin D, 25 Hydroxy specimen requirements will change to serum only.Performed at: - [facility] [id number] Director: Lila Kingsley MD, Phone: [phone] GLU 158 mg/dL (Abnormal) Comments: PATIENT [...] the spine, as detailed above. Dictated on 05/31/[address] MDscribed on 06/01/111702 by ITS IMPORTSign by Mitch Street MD on 06/01/111702 Sign by: Mitch Street MD 91-Lik-618486:20 HgA1C , Office (27117) HgA1C , Office 6.7 % (Normal) Range: 4.6 - 7.1 32-Ttf-582799:20 Blood Glucose , Office (52911) Blood Glucose , Office 175 (Normal) :00 LIVER D BILI 0.11 mg/dL (Normal) Range: [...] per A.D.A. criteria. :22 HgA1C , Office (56153) HgA1C , Office 6.7 % (Normal) Range: 4.6 - 7.1 :22 Blood Glucose , Office (02258) Blood Glucose , Office 205 (Normal) 69-Uuk-584934:00 CHEST WITH CONTRAST Radiology Report See Note [...] 11/19/10 1326 Sign by: JAMARI HARRIS MD 75-Uml-101383:47 HgA1C , Office (23257) HgA1C , Office 6.8 % (Normal) Range: 4.6 - 7.1 :47 Blood Glucose , Office (53171) Blood Glucose , Office 175 (Normal) :54 [...] 0.77 {uIU/mL} (Normal) Range: 0.358-3.74 :54 VITD 07296 39.5 pg/mL (Normal) Range: 10.0-75.0 Comments: Performed at: - [facility] [id number] Director: Madi Chandler MD, Phone: [phone] HgA1C , Office (86498) HgA1C , Office 6.8 % (Normal) Range: 4.6 - 7.1 :52 Blood Glucose , Office (01096) Blood Glucose , Office 117 (Normal) :35 [...] mg/dL High Risk :55 HgA1C , Office (04336) Comments: done km HgA1C , Office 6.3 % (Normal) Range: 4.6 - 7.1 :55 Blood Glucose , Office (97942) Comments: done km Blood Glucose , Office 111 (Normal) :10 HgA1C , Office (00640) Comments: done km HgA1C , Office 6.6 % (Normal) Range: 4.6 - 7.1 :10 Blood Glucose , Office (32716) Comments: done km Blood Glucose , Office 108 (Normal) 4-Aln-730359:00 CBCD,SMEAR DIFF ABSOLUTE NEUT 2.6 3/uL (Normal) [...] 4.2-5.4 WBC 5.5 K/mm3 (Normal) Range: 4.4-11.0 7-Gdm-087003:00 COMP METABOLIC ALK P 94 U/L (Normal) [...] <126 mg/dLsuggests IMPAIRED HOMEOSTASIS per A.D.A. criteria. 9-Coi-726350:00 LIPID CHOL 129 mg/dL (Normal) Comments: <200 mg/dL Bcmrykdru612-979 mg/dL Borderline>240 mg/dL High Risk HDL 46 mg/dL (Normal) Comments: Reference RangeHDL <40 mg/dL Low HDL CholesterolHDL >or= 60 mg/dL High HDL Cholesterol LDL 69 mg/dL (Normal) Range: 0-130 TRIG 69 mg/dL (Normal) Comments: Serum Triglycerides Reference IntervalNormal <150 mg/dLBorderline high 150 - 199 mg/dLHigh 200 - 499 mg/ dLVery High > or = 500 mg/dL VLDL 14 mg/dL (Normal) Range: 5-40 8-Kon-811771:00 MICROALB:CRE UR MALB:CREAT 3.4 {mg/g_CRE} (Normal) MICROALBUMIN,UR 6.9 mg/L (Normal) UR CREAT 199.6 mg/dL (Normal) 9-Qvx-710736:00 NMR LIPOPROFILE HDL SIZE 8.5 nm (Abnormal) [...] RISK MARKERS<--Insulin Sensitive Insulin Resistant-->Percentile [facility] PopulationLarge VLDL-P Low 25th 50th 75th High<0.9 [...] High<27 27 45 63 >63 Performed at: [facility] [address] [place], [place] [id number] Director: Kirit Vengeas PhD SMALL LDL-P 889 nmol/L (Abnormal) VLDL [...] TOT 142 mg/dL (Normal) LIPIDS . (Normal) 2-Nwv-967909:00 TSH 0.79 {uIU/mL} (Normal) Range: 0.358-3.74 :44 HgA1C , Office (19453) Comments: done HgA1C , Office 7.3 % (Abnormal) Range: 4.6 - 7.1 :44 Blood Glucose , Office (46788) Comments: done Blood Glucose , Office 153 (Normal) :59 Blood Glucose , Office (40314) Blood Glucose , Office 102 (Normal) :59 HgA1C , Office (69097) HgA1C , Office 6.5 % (Normal) Range: [...] (Normal) Range: 0.358-3.74 :56 HgA1C , Office (24180) HgA1C , Office 6.4 % (Normal) Range: 4.6 - 7.1 :56 Blood Glucose , Office (15637) Blood Glucose , Office 235 (Normal) :55 HgA1C , Office (35976) Comments: done km HgA1C , Office 6.7 % (Normal) Range: 4.6 - 7.1 :55 Blood Glucose , Office (03603) Comments: done Blood Glucose , Office 123 (Normal) :54 UPPER EXT/NO JT W/O CONTRAST Radiology Report See Note (Normal) Comments: Exam Number: [id number] MRI LEFT UPPER EXTREMITY ON THE OPEN [...] JAMARI TRAN M.D. :02 HgA1C , Office (28427) HgA1C , Office 6.0 % (Normal) Range: 4.6 - 7.1 :02 Blood Glucose , Office (11787) Blood Glucose , Office 151 (Normal) :33 HgA1C , Office (29528) HgA1C , Office 6.3 % (Normal) Range: 4.6 - 7.1 Comments: :33 Blood Glucose , Office (90752) Blood Glucose , Office 136 (Normal) Comments: [...] (Normal) Range: 0.34-4.82 :58 HgA1C , Office (47077) HgA1C , Office 5.9 % (Normal) Range: [...] :39 TSH 0.70 {uIU/mL} (Normal) Range: 0.34-4.82 41-Zlk-200450:57 CHEST, PA AND LATERAL Radiology Report See Note (Normal) Comments: Exam Number: [id number] PA AND LATERAL CHEST HISTORY Being done for cough. Cardiac configuration is normal. No acute infiltrate, effusion, orpneumothorax is identified. IMPRESSIONNo acu te change no marion in the lungs. Reported By: LESLIE VOSS M.D. 49-Rjz-542127:19 HgA1C , Office (59640) Comments: done km HgA1C , Office 6.0 % (Normal) Range: 4.6 - 7.1 65-Wad-391127:19 Blood Glucose , Office (52467) Comments: done km Blood Glucose , Office 93 (Normal) 8-Mcp-248961:12 FOOT,MIN 3 VIEWS Radiology Report See Note (Normal) Comments: Exam Number: [id number] LEFT FOOT, 3 VIEWS HISTORYPain. TECHNIQUEAP, lateral, [...] metatarsal head. Reported By: LESLIE VOSS M.D. 5-Xjo-956510:11 LIPID CHOL 205 mg/dL (Abnormal) Comments: <200 [...] mg/dL VLDL 15 mg/dL (Normal) Range: 5-40 1-Puu-136340:15 HgA1C , Office (88228) Comments: wf HgA1C , Office 6.0 % (Normal) Range: 4.6 - 7.1 0-Agy-384512:15 Blood Glucose , Office (43100) Comments: Blood Glucose , Office 90 (Normal) :10 LIPID PANEL (98272) Comments: do in 3mo; PATIENT WAS FASTINGClinical Information: ADD DRAW FEE [id number] ADD J0 337 PERFORMED BY: GURDEEP [facility] [id number] [place] [id number] Cholesterol, Total 227 mg/dL (Abnormal) Range: 100-199 Comment SPRCS (Normal) Comments: If initial LDL-cholesterol result is >100 mg/dL, assess forrisk factors. HDL Cholesterol 46 mg/dL (Normal) Range: 40-59 LDL Cholesterol Calc 165 mg/dL (Abnormal) Range: 0-99 LDL/HDL Ratio 3.6 {ratio_units} (Abnormal) Range: 0.0-3.2 Triglycerides 79 mg/dL (Normal) Range: 0-149 VLDL Cholesterol Josep 16 mg/dL (Normal) Range: 5-40 :55 Blood Glucose , Office (47225) Comments: done Blood Glucose , Office 123 (Normal) :55 HgA1C , Office (78955) Comments: done HgA1C , Office 7.7 % (Abnormal) Range: 4.6 - 7.1 :55 GLUP 343 mg/dL (Abnormal) Comments: GLU,2HPPG 75gm GLUC PPG GLUP from 0825:[id number]. Comments: Glucose result greater than or equal [...] (Normal) Range: 0.2 - 1.0 :44 TYESHA-D [id number] TYESHA-DIRECT 57 U/mL (Normal) Range: 0-99 Comments: [...] {IU/mL} (Normal) Range: 0.0-13.9 Comments: Performed At: [address] [id number] TSH 0.76 {uIU/mL} (Normal) Range: 0.34-4.82 :46 MYOCARD PERF SPECT REST/STRESS Radiology Report See Note (Normal) Comments: Exam Number: [id number] MYOCARDIAL PERFUSION SCAN 13.8 millicuries of Tc99m Sestamibi was injected at rest. The patientthen exercised according to the regular Aguilar protocol for 6 minutesand 5 seconds a ttaining 97% of maximum predicted heart rate and workload of 7.1 METs. At peak exercise, 36.0 millicuries of Ad67sZgukthzgd was injected. Stress images were then obtained. [...] LEUKEMIA, PLASMA CELL IN REMISSION : Reviewed Smoke Eater Letter Indication: LEUKEMIA, PLASMA CELL IN REMISSION [...] LEUKEMIA, PLASMA CELL IN REMISSION : Reviewed Smoke Eater Letter Indication: LEUKEMIA, PLASMA CELL IN REMISSION [...] LEUKEMIA, PLASMA CELL IN REMISSION : Reviewed Smoke Eater Letter Indication: LEUKEMIA, PLASMA CELL IN REMISSION Asthma : Continue Current Prescription(s) Indication: Asthma Mixed hyperlipidemia : Cholesterol mgmt Indication: Mixed hyperlipidemia Controlled diabetes mellitus type II without complication : Diabetes Mellitus: Type 2 *: diabetes mellitus Indication: Controlled diabetes mellitus type II without complication LEUKEMIA, PLASMA CELL IN REMISSION : Reviewed Smoke Eater Letter Indication: LEUKEMIA, PLASMA CELL IN REMISSION [...] and Vomiting Nausea and Vomiting : Reviewed Smoke Eater Letter Indication: Nausea and Vomiting Nausea and [...] LEUKEMIA, PLASMA CELL IN REMISSION : Reviewed Smoke Eater Letter Indication: LEUKEMIA, PLASMA CELL IN REMISSION Vitamin D deficiency, unspecified : Reviewed Lab Indication: Vitamin D deficiency, unspecified Controlled diabetes mellitus type II without complication : Diabetes Mellitus: Type 2 *: high blood glucose Indication: Controlled diabetes mellitus type II without complication Controlled diabetes mellitus type II without complication : Reviewed Smoke Eater Letter Indication: Controlled diabetes mellitus type II [...] Hyperlipidemia Planned Observations LIPOPROTEIN, BLD, BY NMR (45898)Indication: Mixed hyperlipidemia On: 17-Luz-127696:54 Request CALCIFIDIOL (61485) VIT D 25Indication: Vitamin D deficiency, unspecified On: :54 Request TSH (59363)Indication: Controlled diabetes mellitus type II without complication On: :53 Request URINALYSIS, W/ MICRO (60244)Indication: Controlled diabetes mellitus type II without complication On: :53 Request MICROALBUMIN: CREATININE RATIO (07066) AND (31581)Indication: Controlled diabetes mellitus type II without complication On: :53 Request METABOLIC PANEL, COMPREHENSIVE (37873)Indication: Controlled diabetes mellitus type II without complication On: :53 Request CBC W/AUTO DIFF WBC (59863)Indication: Controlled diabetes mellitus type II without complication On: :53 Request HGB A1C (43306)Indication: Diabetes type 2, uncontrolled On: 89-Whi-486672:41 Request MICROALBUMIN: CREATININE RATIO (74374) AND (54061)Indication: Hypertension, benign On: 28-Add-878783:03 Request URINALYSIS (29930)Indication: Hypertension, benign On: 88-Dkx-456040:03 Request Metabolic Panel, Comprehensive (01247)Indication: Hypertension, benign On: 81-Htx-378148:03 Request TSH (85246)Indication: Hypertension, benign On: 86-Mvp-825282:03 Request CALCIFEDIOL (12595)Indication: Vitamin D deficiency, unspecified On: 05-Pix-983982:03 Request CBC WITH MANUAL DIFF (59267)Indication: Mixed hyperlipidemia On: 74-Rdv-324986:02 Request Lipid Panel (21097)Indication: Mixed hyperlipidemia On: 63-Dmv-285640:02 Request HGB A1C (16880)Indication: Diabetes type 2, uncontrolled On: 02-Lie-015920:02 Request CALCIFEDIOL (31506)Indication: Vitamin D deficiency, unspecified On: 6-Kji-945206:59 Request HGB A1C (52763)Indication: Controlled diabetes mellitus type II without complication On: 2-Kel-202718:42 Request CALCIFIDIOL (31120) VIT D 25Indication: Vitamin D deficiency, unspecified On: :32 Request TSH (50511)Indication: Controlled diabetes mellitus type II without complication On: :32 Request URINALYSIS, W/ MICRO (24571)Indication: Controlled diabetes mellitus type II without complication On: :32 Request MICROALBUMIN: CREATININE RATIO (25071) AND (63743)Indication: Controlled diabetes mellitus type II without complication On: :32 Request METABOLIC PANEL, COMPREHENSIVE (04785)Indication: Controlled diabetes mellitus type II without complication On: :32 Request LIPID PANEL (70818)Indication: Controlled diabetes mellitus type II without complication On: :32 Request CBC W/AUTO DIFF WBC (77222)Indication: Controlled diabetes mellitus type II without complication On: :32 Request TSH (94174)Indication: Mixed hyperlipidemia On: :55 Request URINALYSIS, W/ MICRO (73570)Indication: Controlled diabetes mellitus type II without complication On: :55 Request MICROALBUMIN: CREATININE RATIO (98232) AND (53999)Indication: Controlled diabetes mellitus type II without complication On: :55 Request CBC W/AUTO DIFF WBC (94734)Indication: Controlled diabetes mellitus type II without complication On: :52 Request METABOLIC PANEL, COMPREHENSIVE (11190)Indication: Controlled diabetes mellitus type II without complication On: :52 Request CALCIFIDIOL (51144) VIT D 25Indication: Vitamin D deficiency, unspecified On: :52 Request LIPID PANEL (94024)Indication: Mixed hyperlipidemia On: 34-Rdk-455342:52 Request CALCIFIDIOL (97407) VIT D 25Indication: Vitamin D deficiency, unspecified On: :32 Request TSH (97668)Indication: Controlled diabetes mellitus type II without complication On: :32 Request URINALYSIS, W/ MICRO (76644)Indication: Controlled diabetes mellitus type II without complication On: :32 Request MICROALBUMIN: CREATININE RATIO (25036) AND (64523)Indication: Controlled diabetes mellitus type II without complication On: 5-Cjj-955439:32 Request METABOLIC PANEL, COMPREHENSIVE (33361)Indication: Controlled diabetes mellitus type II without complication On: 1-Ekk-085322:32 Request CBC W/AUTO DIFF WBC (47949)Indication: Controlled diabetes mellitus type II without complication On: 3-Nch-669851:32 Request TSH (55671)Indication: Diabetes type 2, uncontrolled On: 81-Kfd-880440:28 Request URINALYSIS, W/ MICRO (24767)Indication: Diabetes type 2, uncontrolled On: 40-Fvr-149558:28 Request MICROALBUMIN: CREATININE RATIO (36364) AND (98840)Indication: Diabetes type 2, uncontrolled On: :28 Request METABOLIC PANEL, COMPREHENSIVE (16926)Indication: Diabetes type 2, uncontrolled On: :27 Request LIPID PANEL (57802)Indication: Mixed hyperlipidemia On: :27 Request CBC W/AUTO DIFF WBC (91801)Indication: Diabetes type 2, uncontrolled On: 08-Lzv-598240:27 Request CALCIFIDIOL (21627) VIT D 25Indication: Vitamin D deficiency, unspecified On: 41-Cum-007707:27 Request Vitamin D Hydroxy (38092)Indication: Vitamin D deficiency, unspecified On: 4-Iui-485064:46 Request TSH (01444)Indication: Controlled diabetes mellitus type II without complication On: 2-Fwr-129311:17 Request URINALYSIS, W/ MICRO (18388)Indication: Hypertension On: 9-Exs-387979:17 Request MICROALBUMIN: CREATININE RATIO (80802) AND (75724)Indication: Controlled diabetes mellitus type II without complication On: 1-Hll-961561:17 Request METABOLIC PANEL, COMPREHENSIVE (22584)Indication: Hypertension On: 3-Bym-370452:17 Request LIPID PANEL (79427)Indication: Hypertension On: 6-Zhy-095174:17 Request CBC with auto diff (91820)Indication: Hypertension On: 3-Tdq-784372:17 Request Vitamin D Hydroxy (95214)Indication: Vitamin D deficiency, unspecified On: 6-Cbm-427708:17 Request Vitamin D Hydroxy (72286)Indication: Controlled diabetes mellitus type II without complication On: 7-Ojz-845824:57 Request TSH (71906)Indication: Controlled diabetes mellitus type II without complication On: 0-Qeh-160641:57 Request URINALYSIS, W/ MICRO (74839)Indication: Controlled diabetes mellitus type II without complication On: 5-Syi-735954:57 Request MICROALBUMIN: CREATININE RATIO (06880) AND (09471)Indication: Controlled diabetes mellitus type II without complication On: 5-Yxz-763988:57 Request METABOLIC PANEL, COMPREHENSIVE (55678)Indication: Controlled diabetes mellitus type II without complication On: 1-Tbt-981856:57 Request LIPID PANEL (11877)Indication: Mixed hyperlipidemia On: :57 Request CBC W/AUTO DIFF WBC (78444)Indication: Controlled diabetes mellitus type II without complication On: 4-Yhe-185369:56 Request Vitamin D Hydroxy (69660)Indication: Vitamin D deficiency, unspecified On: 6-Lly-945220:01 Request LIPID PANEL (59356)Indication: Vitamin D deficiency, unspecified On: 8-Sgt-431807:01 Request TSH (53256)Indication: Diabetes type 2, uncontrolled On: 6-Oqg-011012:00 Request URINALYSIS, W/ MICRO (06864)Indication: Diabetes type 2, uncontrolled On: 8-Tud-016915:00 Request MICROALBUMIN: CREATININE RATIO (70049) AND (80942)Indication: Diabetes type 2, uncontrolled On: 0-Qwe-757845:00 Request METABOLIC PANEL, COMPREHENSIVE (62786)Indication: Diabetes type 2, uncontrolled On: 7-Stu-453124:00 Request CBC WITH MANUAL DIFF (67082)Indication: Diabetes type 2, uncontrolled On: 6-Jmp-433751:00 Request CALCIFIDIOL (45052) VIT D 25Indication: Vitamin D deficiency, unspecified On: 8-Sww-685262:55 Request Vitamin D Hydroxy (93032)Indication: Vitamin D deficiency, unspecified On: 9-Xrw-009167:13 Request TSH (44492)Indication: Diabetes type 2, uncontrolled On: :13 Request URINALYSIS, W/ MICRO (86194)Indication: Diabetes type 2, uncontrolled On: 5-Alx-653042:13 Request MICROALBUMIN: CREATININE RATIO (63220) AND (79780)Indication: Diabetes type 2, uncontrolled On: 0-Too-554463:13 Request METABOLIC PANEL, COMPREHENSIVE (48390)Indication: Diabetes type 2, uncontrolled On: :13 Request CBC WITH MANUAL DIFF (94491)Indication: Diabetes type 2, uncontrolled On: :13 Request LIPID PANEL (50170)Indication: Diabetes type 2, uncontrolled On: :13 Request Vitamin D Hydroxy (92342)Indication: Vitamin D deficiency, unspecified On: 2-Ktk-036472:00 Request TSH (67060)Indication: Diabetes type 2, uncontrolled On: 5-Vpk-760754:59 Request URINALYSIS, W/ MICRO (85359)Indication: Diabetes type 2, uncontrolled On: :59 Request MICROALBUMIN: CREATININE RATIO (29766) AND (53397)Indication: Diabetes type 2, uncontrolled On: :59 Request METABOLIC PANEL, COMPREHENSIVE (71482)Indication: Diabetes type 2, uncontrolled On: :59 Request LIPID PANEL (26985)Indication: Diabetes type 2, uncontrolled On: :59 Request CBC WITH MANUAL DIFF (99464)Indication: Diabetes type 2, uncontrolled On: 0-Xht-726581:59 Request Lipid Panel (79958)Indication: Vitamin D deficiency, unspecified On: :12 Request HEPATIC FUNCTION PANEL (71139)Indication: Vitamin D deficiency, unspecified On: :12 Request LIPID PANEL (66140)Indication: Vitamin D deficiency, unspecified On: 1-Rmv-240915:04 Request CBC with manual diff (95892)Indication: Leukopenia On: 00-Kut-722849:14 Request VITAMIN B12 AND FOLATES (09643)Indication: Leukopenia On: 37-Guj-416355:14 Request TSH (32268)Indication: Diabetes type 2, uncontrolled On: 23-Upb-946889:42 Request URINALYSIS, W/ MICRO (96332)Indication: Diabetes type 2, uncontrolled On: 00-Jqk-490012:42 Request MICROALBUMIN: CREATININE RATIO (48857) AND (67310)Indication: Diabetes type 2, uncontrolled On: 27-Xak-863497:42 Request METABOLIC PANEL, COMPREHENSIVE (74906)Indication: Diabetes type 2, uncontrolled On: : Request CBC WITH MANUAL DIFF (65313)Indication: Diabetes type 2, uncontrolled On: Request CALCIFIDIOL (31652) VIT D 25Indication: Vitamin D deficiency, unspecified On: : Request LIPID PANEL (09977)Indication: Mixed hyperlipidemia On: 46-Zla-571091:06 Request TSH (13190)Indication: Diabetes type 2, uncontrolled On: :33 Request MICROALBUMIN: CREATININE RATIO (27553) AND (27216)Indication: Diabetes type 2, uncontrolled On: : Request METABOLIC PANEL, COMPREHENSIVE (76449)Indication: Diabetes type 2, uncontrolled On: Request LIPOPROTEIN, BLD, BY NMR (81455)Indication: Diabetes type 2, uncontrolled On: : Request LIPID PANEL (24222)Indication: Diabetes type 2, uncontrolled On: : Request CBC WITH MANUAL DIFF (01739)Indication: Diabetes type 2, uncontrolled On: :33 Request LIPID PANEL (90942)Indication: Mixed hyperlipidemia On: : Request LIPOPROTEIN, BLD, BY NMR (98801)Indication: Mixed hyperlipidemia On: : Request Comments: DO IN 3 MONTHS TSH (83229)Indication: Controlled diabetes mellitus type II without complication On: :34 Request MICROALBUMIN: CREATININE RATIO (19380) AND (27167)Indication: Controlled diabetes mellitus type II without complication On: :34 Request METABOLIC PANEL, COMPREHENSIVE (64422)Indication: Controlled diabetes mellitus type II without complication On: :34 Request LIPOPROTEIN, BLD, BY NMR (11475)Indication: Controlled diabetes mellitus type II without complication On: :34 Request LIPID PANEL (92860)Indication: Controlled diabetes mellitus type II without complication On: :34 Request CBC WITH MANUAL DIFF (97875)Indication: Controlled diabetes mellitus type II without complication On: :34 Request MICROALBUMIN: CREATININE RATIO (15158) AND (60293)Indication: Controlled diabetes mellitus type II without complication On: 05-Bft-957362:08 Request URINALYSIS W/O MICRO (16551)Indication: Benign essential hypertension On: 38-Pzl-008094:08 Request TSH (99024)Indication: Benign essential hypertension On: 91-Nfi-574082:08 Request LIPID PANEL (48232)Indication: Benign essential hypertension On: 21-Hcf-668660:08 Request METABOLIC PANEL, COMPREHENSIVE (89843)Indication: Benign essential hypertension On: 47-Asb-476897:08 Request CBC WITH MANUAL DIFF (31826)Indication: Benign essential hypertension On: 77-Hdb-078892:08 Request HEPATIC FUNCTION PANEL (54702)Indication: Mixed hyperlipidemia On: 80-Zlj-126771:58 Request TSH (19983)Indication: Controlled diabetes mellitus type II without complication On: 71-Sqg-281552:17 Request MICROALBUMIN: CREATININE RATIO (08343) AND (92053)Indication: Controlled diabetes mellitus type II without complication On: :17 Request METABOLIC PANEL, COMPREHENSIVE (39724)Indication: Controlled diabetes mellitus type II without complication On: 12-Xqm-930944:17 Request CBC WITH MANUAL DIFF (94877)Indication: Controlled diabetes mellitus type II without complication On: 12-Fow-055331:17 Request LIPID PANEL (25900)Indication: Controlled diabetes mellitus type II without complication On: 31-Pwk-762046:17 Request LIPID PANEL (40177)Indication: Mixed hyperlipidemia On: 6-Rqp-007071:46 Request Glucose, PP/2 Hour (40421)Indication: Other specified abnormal findings of blood chemistry On: :06 Request LIPID PANEL (99094)Indication: Mixed hyperlipidemia On: :06 Request Comments: do in 4 months TSH (54626)Indication: Fatigue On: 4-Agj-488011:31 Request Folate (87572)Indication: Fatigue On: :31 Request VITAMIN B-12 (CYANOCOBALAMIN) (03341)Indication: Fatigue On: :31 Request SED RATE ERYTHROCYTE (89670)Indication: Fatigue On: :31 Request RHEUMATOID FACTOR-QUANT (08492)Indication: Fatigue On: 3-Mlp-074343:31 Request C-REACTIVE PROTEIN (24551)Indication: Fatigue On: :31 Request METABOLIC PANEL, COMPREHENSIVE ([id number])Indication: Fatigue On: :31 Request CBC (AUTO) ([id number])Indication: Fatigue On: :31 Request TYESHA (ANTINUCLEAR ANTIBODY) ([id number])Indication: Fatigue On: :31 Request TSH ([id number])Indication: Hypertension On: :28 Request URINALYSIS W/O MICRO ([id number])Indication: Hypertension On: : Request MICROALBUMIN URINE QUANT ([id number])Indication: Hypertension On: : Request METABOLIC PANEL, COMPREHENSIVE ([id number])Indication: Hypertension On: Request CBC WITH MANUAL DIFF ([id number])Indication: Hypertension On: : Request LIPID PANEL ([id number])Indication: Mixed hyperlipidemia On: Request METABOLIC PANEL, BASIC ([id number])Indication: Hypertension On: :57 Request Comments: do before next appt Planned Encounters Medical; 3 Month FU - On: 24-Nov-2018 14:00 [facility] Kalyn Forbes DO, DO, Kathleen Planned Procedures CT - Chest (IV Contrast Needed)By: On: 08-Sep-2018 Kalyn Hudson DO, DO, Kathleen PHYSICAL THERAPY ([id number])By: On: 07-Sep-2018 Intent Brenda Jones Radiology - Cervical SpineBy: On: 07-Sep-2018 Intent [facility] Jones [facility]iology - Shoulder - RightBy: On: 07-Sep-2018 Intent Brenda Jones Toradol Injection, 30 mg On: 07-Sep-2018 Intent ([id number])By: Brenda Jones Comments: toradol 30mg injection lot:[id number]: 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,HEALTH PLAN MANAGER Spirometry ([id number])By: Evan CAMPBELL, On: 26-May-2018 Intent Kalyn Meyer DO Comments: really poor technique -- ELECTROCARDIOGRAM, COMPLETE (ECG) On: 17-Feb-2018 Intent ([id number])By: Kalyn Forbes DO Comments: nsr no acute chg Kalyn Forbes DO Spirometry ([id number])By: Evan CAMPBELL, On: 01-Jul-2017 Intent Kalyn Meyer DO Comments: mmild restirctive- asx- poor technique??-- didnt order TLC now since asx -- will follow ELECTROCARDIOGRAM, COMPLETE (ECG) On: 18-Mar-2017 Intent ([id number])By: Kalyn Forbes DO Comments: nsr no acute chg Kalyn Forbes DO Spirometry ([id number])By: Evan CAMPBELL, On: 30-Apr-2016 Intent Kalyn Meyer DO Comments: mild obstruction -- enc to take advair more routinely EKG ([id number])By: Evan CAMPBELL, On: 04-Apr-2015 Intent Kalyn Meyer DO Comments: nsr no acute chg IMMUNIZ ADMNIN, 1 VAC, SNGL/COMBO On: 05-Jul-2014 Intent ([id number])By: Kalyn Forbes DO Comments: lot [id number] 10/23/15location L armroute imgiven by - msmith VIS and/or ABN signed Kalyn Forbes DO PNEUM VAC ADLT/IMUMNOSPR, On: 05-Jul-2014 Intent SBC/INTRM ([id number])By: Kalyn Forbes DO, DO, Kathleen EKG ([id number])By: Evan CAMPBELL, On: 01-Apr-2014 Intent Kalyn Meyer DO Comments: nsr no acute chg Eprescribed prescriptions On: 01-Oct-2013 Intent ([id number])By: Kalyn Forbes DO, DO, Kathleen Eprescribed prescriptions On: 29-Jun-2013 Intent ([id number])By: Brenda Arthur LPN Spirometry ([id number])By: Evan CAMPBELL, On: 30-Mar-2013 Intent Kalyn Meyer DO Comments: normal EKG ([id number])By: Evan CAMPBELL, On: 30-Mar-2013 Intent Kalyn Meyer DO Comments: nsr no acute chg Eprescribed prescriptions On: 30-Mar-2013 Intent ([id number])By: Brenda Arthur LPN Eprescribed prescriptions On: 25-Dec-2012 Intent ([id number])By: Oksana Caldera Eprescribed prescriptions On: 04-Dec-2012 Intent ([id number])By: Melissa Romero Eprescribed prescriptions On: 17-Oct-2012 Intent ([id number])By: Brenda Arthur LPN Eprescribed prescriptions On: 11-Sep-2012 Intent ([id number])By: Amy Wilder LPN Spirometry ([id number])By: Evan CAMPBELL, On: 21-Feb-2012 Intent Kalyn Meyer [...] Needed)By: Kalyn Forbes DO, DO, Kathleen Spirometry ([id number])By: Jerson, On: 30-Oct-2010 Intent Brenda ROBLEDO Comments: normal--using advair bid now improved Spirometry ([id number])By: Evan CAMPBELL, On: 15-Oct-2010 Intent Kalyn Meyer DO Comments: severe obstruction but poor tech-- asx and no use of rescue inhaler- but admits doesnt use advair daily 0-- will use bid for 2 weeks then fu to repeat spirometry and see -- 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 will try but lets see what bid EKG ([id number])By: Evan CAMPBELL, On: 20-Jul-2010 Intent Kalyn Meyer DO Comments: nsr no acute chg Spirometry ([id number])By: Evan CAMPBELL, On: 08-Oct-2009 Intent Kalyn Meyer DO Comments: obstruction but poor tch EKG ([id number])By: Wily ROBLEDO, On: 30-May-2009 Intent Maria Del Rosario Comments: nsr no acute changes THER/PROPH/DIAG IV INF, INIT On: 07-Mar-2009 Intent ([id number])By: CORBIN Kwok INFUSION, NORMAL SALINE SOLUTION , On: 07-Mar-2009 Intent 250 CC ([id number])By: CORBIN Kwok Rocephin Injection, 2 Gram On: 07-Mar-2009 Intent ([id number])By: CORBIN Kwok Comments: Lot #:[id number] date:mount given:2 grams Route:IV Site given:left hand Given by: erussellinfused without diff patient voiced no complaints INFUSION, NORMAL SALINE SOLUTION , On: 06-Mar-2009 Intent 1000 CC (Special Coverage Instructions Apply. See MCM: 2049) ([id number])By: Lavonne French CNP HYDRATION IV INFUSION, INIT On: 06-Mar-2009 Intent ([id number])By: Lavonne French CNP Rocephin Injection, 2 Gram On: 06-Mar-2009 Intent ([id number])By: Lavonne French CNP Spirometry ([id number])By: Evan CAMPBELL, On: 15-Nov-2008 Intent Kalyn Meyer DO Comments: done-AWpoor effort -- obstruciton -- asx not using resuce inhaler MRI - OtherBy: Kalyn Forbes DO On: 19-Aug-2008 Intent Kalyn Forbes DO Comments: Left Arm Inhaler Demo ([id number])By: Evan CAMPBELL, On: 10-Jul-2008 Intent Kalyn Meyer DO Comments: done km Aerosol Treatment ([id number])By: On: 10-Jul-2008 Intent Kalyn Forbes DO, DO, Comments: done with albuterol 0.83%better air exchange no wheeze Kalyn Solu- Medrol Injection, 125mg On: 10-Jul-2008 Intent ([id number])By: Kalyn Forbes DO Comments: 2ml given im lt hip lot oatd6 exp 5-11 Kalyn Forbes DO Inhaler Demo ([id number])By: Evan CAMPBELL, On: 08-Nov-2007 Intent Kalyn Meyer DO Solu- Medrol Injection, 125mg On: 08-Nov-2007 Intent ([id number])By: Kalyn Forbes DO Comments: 2ml given imk lt hip lot oajmt exp 9-10 Kalyn Forbes DO Aerosol Treatment ([id number])By: On: 08-Nov-2007 Intent Kalyn Forbes DO, DO, Comments: doneMORE AIR EXCHANGE AND NO JUNKY NOISE ANYMORE Kalyn Radiology - Chest- PA and LatBy: On: 08-Nov-2007 Intent Kalyn Forbes DO, DO, Kathleen Spirometry ([id number])By: Evan CAMPBELL, On: 08-Nov-2007 Intent Kalyn Meyer DO Comments: done kmNORMAL Radiology - Foot - LeftBy: Evan On: 03-Aug-2007 Intent Kalyn CAMPBELL DO, Kathleen Nuclear Stress Test/Stress On: 03-Apr-2007 Intent SPECT/TreadmillBy: Evan CAMPBELL, Comments: heart group to read Kalyn Meyer DO Echo CompleteBy: Evan CAMPBELL, On: 03-Apr-2007 Intent Kalyn Meyer DO Comments: heart group to read EKG ([id number])By: Evan CAMPBELL, On: 03-Apr-2007 Intent Kalyn Meyer DO Comments: nsr no acute ischemic changes SHAVE LESION, On: 31-Oct-2006 Intent FACE/LID/EAR/NOSE/LIP ([id number])By: Kalyn Forbes DO, DO, Kathleen Spirometry ([id number])By: Evan CAMPBLEL, On: 19-Sep-2006 Intent Kalyn Meyer DO Comments: moderate obstruction--on no inhalers encouraged her to resume advair discus and will repeat in one month EKG ([id number])By: Evan CAMPBELL, On: 19-Sep-2006 Intent Kalyn Meyer [...] Advance Directives Name Dates Details Immunization Registry [place] - Effective on Effective: 25-Aug-201808/25/2018. Expiration date unspecified Encounters Phone Encounter On: 18-Sep-2018 15:27 Encounter Diagnosis: [...] intolerance: had her weekly labs drawn at [facility] and they called stating her sugar was [...] (238.9), ASTHMA, UNSPECIFIED, WITH ACUTE EXACERBATION (493.92), [facility] V72.31 [facility] Office Visit On: [...] [facility] Payers Lisette MENARD/Bobbi Lara; navi guarantor
--- OUTSIDE RECORDS SUMMARY | 2018-11-18 16:23 | XMS RPT_ITS | Continuity of Care Document ---
:1955 Author Organization [facility] Address [address] [facility] [address] [place] [address] Phone Care Team Providers Name Role Phone Kalyn Forbes DO Unavailable Ekaterina SIM, Dr. Fidencio Pena Unavailable Bethany Hutchison Unavailable Kalyn Forbes DO Unavailable Jamari Eldridge DO Unavailable Maxi Valadez Unavailable Unavailable VENKAT Arthur Unavailable Unavailable Brenda Jones Unavailable Unavailable Unavailable Unavailable Problems Name Dates [...] Dysuria (R30.0, 788.1) Comments: cont to drink uz6qrrvzhg juice Status: Active Eustachian tube dysfunction (H69.80, [...] masci thnks they will resolve-- Status: Active Mass of upper lobe of [...] 1 {Bottle} Refills: 0 Ordered:23-Apr-2015 Manolo CRAWFORD Lavonne Agustin Start : 23-Apr-2015 Active FREESTYLE LITE TEST [...] 27-Dec-2014 End : 11-Jul-2015 Inactive Comments:std process LINK, 17165MIJJ (Oral Capsule) 1 Capsule qweek for 360 [...] End : 19-Nov-2011 Inactive Comments:ten VITAMIN D, 59195TRIZ (Oral Capsule) 1 q week (91487 U) Inactive VITAMIN D3, 2000UNIT (Oral Capsule) 1 (one) Capsule Capsule qd for 120 days Refills: 0 Ordered:07-Feb-2014 Brenda Arthur LPN Start : 01-Oct-2013 End : 29-Jan-2014 Inactive VITAMIN D3, 19673ZIQB (Oral Capsule) 1 Capsule weekly for 0 days Quantity: 4 {Capsule} Refills: 4 Ordered:17-Oct-2012 Brenda Arthur LPN Start : 11-Sep-2012 End : 17-Oct-2012 Inactive Zithromax Z-Tray 250 MG Oral Tablet tad Tablet qd for 0 days Quantity: 1 {Package} Refills: 0 Ordered:26-May-2018 Brenad Arthur LPN Start : 07-Oct-2017 End : [...] felt fine and no fever now-called to [facility] in [place] Status: Inactive as of 30-Mar-2013 Cellulitis of [...] as of 27-Feb-2009 WWV V72.31 Comments: colonscopy 2008 Dr. modesta ugarte, talk about skin screen with assoc melanoma and breast ca Status: Inactive as of 12-Jan-2010 Procedures Procedure Dates Details Colonoscopy Completed Comments: 08/14/07 - Dr. Cramer Hysterectomy; Total Completed Comments: 02/12/13 Tonsillectomy Completed Date Value Details 07-Sep-2018 Cerv Spine 2 or 3 Views Result: Comments: See Note; NOTES: [facility] [address] [place] [address] Cerv Spine 2 or 3 Views MR#: [id number] Acct: [id number] Name: MARTY LARA Rep #: [id number] : 1955 F 62 From: Aleksandr Velasquez DO PCP: Kalyn Forbes DO Status: REG CLI Study: Cerv Spine 2 or 3 Views Date of Exam: 09/07/18 Exam# [id number] Ordering Dr: Brenda Jones STUDY: X-RAY - [...] Velasquez DO at 23:2 3 EST Tel [phone], Service support , CC: JERRELL Jones; Kalyn Forbes DO Branch Account Manager: Signed 07-Sep-2018 Cerv Spine 2 or 3 Views Result: Comments: See Note; NOTES: [facility] [address] [place] [address] Cerv Spine 2 or 3 Views MR#: [id number] Acct: [id number] Name: MARTY LARA Rep #: [id number] : 1955 F 62 From: Aleksandr Velasquez DO PCP: Kalyn Forbes DO Status: REG CLI Study: Cerv Spine 2 or 3 Views Date of Exam: 09/07/18 Exam# [id number] Ordering Dr: Brenda Jones STUDY: X-RAY - [...] Velasquez DO at 23:2 3 EST Tel [phone], Service support , CC: JERRELL Jones; Kalyn Forbes DO Branch Account Manager: Signed 07-Sep-2018 Shoulder min 2 Views Result: Comments: See Note; NOTES: [facility] [address] [place] [address] Shoulder min 2 Views MR#: [id number] Acct: [id number] Name: MARTY LARA Rep #: [id number] : 1955 F 62 From: Aleksandr Velasquez DO PCP: Kalyn Forbes DO Status: REG CLI Study: Shoulder min 2 Views Date of Exam: 09/07/18 Exam# [id number] Ordering Dr: Brenda Jones STUDY: X-RAY - [...] Aleksandr Velasquez DO at 22:37 EST Tel [phone], Service support 09-05 [phone], CC: JERRELL Jones; Kalyn Forbes DO Branch Account Manager: Signed 07-Sep-2018 Shoulder min 2 Views Result: Comments: See Note; NOTES: [facility] [address] [place] [address] Shoulder min 2 Views MR#: [id number] Acct: [id number] Name: MARTY LARA Rep #: [id number] : 1955 F 62 From: Aleksandr Velasquez DO PCP: Kalyn Forbes DO Status: REG CLI Study: Shoulder min 2 Views Date of Exam: 09/07/18 Exam# [id number] Ordering Dr: Brenda Jones STUDY: X-RAY - [...] Aleksandr Velasquez DO at 22:37 EST Tel [phone], Service support 09-05 [phone], CC: JERRELL Jones; Kalyn Forbes DO Branch Account Manager: Signed 04-Apr-2015 Spirometry (92161) Comments: restriction disease-technique dependent Result: 01-Apr-2014 Spirometry (30236) Comments: normal Result: Family History Unknown Family [...] smoker Vital Signs Date Test Result Details 64-Kwn-18329:00 Temperature 97 f Comments: Method: Temporal Pulse [...] kg/m2 Body Surface Area Calculated 1.87 m2 63-Hbn-575280:02 Temperature 99 f Comments: Method: Oral Pulse [...] Height 0 in Head Circumference 0.00 cm : Temperature 97.8 f Comments: Method: Oral Pulse [...] 0.00 cm Results Date Description Value Details :29 LIPOPROTEIN, BLD, BY NMR Comments: PATIENT WAS FASTINGPERFORMED BY: [facility] [address] [id number] (39555) LP-IR Score 59 (Abnormal) Comments: INSULIN RESISTANCE MARKER <--Insulin Sensitive Insulin Resistant--> Percentile in Reference PopulationInsulin Resistance ScoreLP-IR Score Low 25th 50th 75th High <27 27 45 63 >63LP-IR Score is inaccurate if patient is non-fasting. .The LP-IR score is a laboratory developed i [facility] that has beenassociated with insulin resistance and [...] were developed and their performance characteristicsdetermined by [employer]. These assays have not been cleared by [...] High > 2000 :42 HgA1C , Office (92952) HgA1C , Office 7.5 % (Abnormal) Range: 4.6 - 7.1 :42 Blood Glucose , Office (00090) Blood Glucose , Office 157 (Normal) :56 HgA1C , Office (65607) HgA1C , Office 6.7 % (Normal) Range: 4.6 - 7.1 :56 Blood Glucose , Office (12625) Blood Glucose , Office 150 (Normal) :42 HgA1C , Office (61565) HgA1C , Office 6.2 % (Normal) Range: 4.6 - 7.1 :19 HgA1C , Office (11165) HgA1C , Office 7.1 % (Normal) Range: 4.6 - 7.1 :19 Blood Glucose , Office (13045) Blood Glucose , Office 89 (Normal) :25 HgA1C , Office (30450) HgA1C , Office 6.9 % (Normal) Range: 4.6 - 7.1 :25 Blood Glucose , Office (30316) Blood Glucose , Office 112 (Normal) :14 HgA1C , Office (10385) HgA1C , Office 6.5 % (Normal) Range: 4.6 - 7.1 :14 Blood Glucose , Office (21336) Blood Glucose , Office 159 (Normal) :48 HgA1C , Office (09052) HgA1C , Office 6.4 % (Normal) Range: 4.6 - 7.1 :48 Blood Glucose , Office (12122) Blood Glucose , Office 91 (Normal) :39 Microscopic Examination Comments: PATIENT WAS FASTINGPERFORMED BY: [facility] Qasvzd3456 [facility] [id number] Bacteria Few (Normal) Mucus Threads Present (Normal) Epithelial Cells (non renal) 0-10 {/hpf} (Normal) Range: 0 - 10 RBC 0-2 {/hpf} (Normal) Range: 0 - 2 WBC 0-5 {/hpf} (Normal) Range: 0 - 5 :39 CALCIFIDIOL (76639) VIT D 25 Comments: PATIENT WAS FASTINGPERFORMED BY: Sina [facility]qdjfz3704 [facility] [place] [id number] Vitamin D, 25-Hydroxy 37.4 ng/mL (Normal) Range: 30.0-100.0 Comments: Vitamin D deficiency has been defined by the [place] of[facility] Medical Centercine and an Endocrine Society practice guideline as alevel of serum 25-OH vitamin D less than 20 ng/mL (1,2).The Endocrine Society went on to further define vitamin Dinsufficiency as a level between 21 and 29 ng/mL (2).1. IOM ([place] of Medicine). 2010. Dietary reference intakes for calcium and D. [place]: The National Academies Press.2. Elizabeth MF, Charles LUNDY, Silke BATISTA, et al. Evaluation, treatment, and prevention of vitamin D deficiency: an Endocrine Society clinical practice guideline. JCEM. 2010; 96(7):1911-30. :39 TSH (77891) Comments: PATIENT WAS FASTINGPERFORMED BY: [employer] Bickby8488 [facility] HospitalDublin [place] [id number] TSH 1.340 {uIU/mL} (Normal) Range: 0.450-4.500 :39 URINALYSIS, W/ MICRO (03282) Comments: PATIENT WAS FASTINGPERFORMED BY: [facility] Zvcods3547 [facility] [place] [id number] Microscopic Examination See below: (Normal) Comments: Microscopic was indicated and was performed. Microscopic Examination MICRON (Normal) Comments: Microscopic follows if indicated. Nitrite, Urine Negative (Normal) Urobilinogen,Semi-Qn 0.2 mg/dL (Normal) Range: 0.2-1.0 Bilirubin Negative (Normal) Occult Blood Negative (Normal) Ketones Negative (Normal) Glucose Trace (Abnormal) Protein Negative (Normal) WBC Esterase Negative (Normal) Appearance Clear (Normal) Urine-Color Yellow (Normal) pH 6.0 (Normal) Range: 5.0-7.5 Specific [place] 1.021 (Normal) Range: 1.005-1.030 :39 MICROALBUMIN: CREATININE RATIO Comments: PATIENT WAS FASTINGPERFORMED BY: [employer] Fvjfxd8305 [facility] [id number] (98561) AND (73518) Microalb/Creat Ratio <3.1 {mg/g_creat} (Normal) Range: 0.0-30.0 Microalbumin, Urine <3.0 ug/mL (Normal) Creatinine, Urine 97.1 mg/dL (Normal) :39 METABOLIC PANEL, COMPREHENSIVE Comments: PATIENT WAS FASTINGPERFORMED BY: [employer]6370 [facility] [id number] (33094) ALT (SGPT) 40 [iU]/L (Abnormal) Range: 0-32 [...] mg/dL (Abnormal) Range: 65-99 :39 LIPID PANEL (68438) Comments: PATIENT WAS FASTINGPERFORMED BY: [facility] HospitalOMsignalRehabilitation Hospital of South JerseyPlmqek6879 [facility] [id number] LDL/HDL Ratio 1.9 {ratio_units} (Normal) Range: 0.0-3.2 [...] DIFF WBC Comments: PATIENT WAS FASTINGPERFORMED BY: [facility]CoRehabilitation Hospital of South JerseyOjabqf7258 [facility] [id number] Information: [id number] (96351) Immature Grans (Abs) 0.0 {x10E3/uL} (Normal) Range: [...] Range: 3.4-10.8 :56 Blood Glucose , Office (80446) Blood Glucose , Office 130 (Normal) :41 HgA1C , Office (36439) HgA1C , Office 6.8 % (Normal) Range: 4.6 - 7.1 :41 Blood Glucose , Office (72542) Blood Glucose , Office 92 (Normal) 60-Rfj-208046:03 LIPID PANEL (08537) Comments: PATIENT WAS FASTINGPERFORMED BY: [facility]CoRehabilitation Hospital of South JerseyPpfzxg7004 [facility] [id number] Information: [id number] LDL/HDL Ratio 2.4 {ratio_units} (Normal) Range: 0.0-3.2 [...] 203 mg/dL (Abnormal) Range: 100-199 :03 CALCIFIDIOL (67933) VIT D 25 Comments: PATIENT WAS FASTINGPERFORMED BY: [facility]CoRehabilitation Hospital of South JerseyVaqssk1379 [facility]UNC [facility] Rex [id number] Vitamin D, 25-Hydroxy 26.2 ng/mL (Abnormal) Range: 30.0-100.0 Comments: Vitamin D deficiency has been defined by the [place] of[facility] Centercine and an Endocrine Society practice guideline as alevel of serum 25-OH vitamin D less than 20 ng/mL (1,2).The Endocrine Society went on to further define vitamin Dinsufficiency as a level between 21 and 29 ng/mL (2).1. IOM ([place] of Medicine). 2010. Dietary reference intakes for calcium and D. [place]: The National Academies Press.2. Elizabeth MF, Charles LUNDY, Silke BATISTA, et al. Evaluation, treatment, and prevention of vitamin D deficiency: an Endocrine Society clinical practice guideline. JCEM. 2010; 96(7):1911-30. :11 Blood Glucose , Office (91018) Blood Glucose , Office 118 (Normal) :10 HgA1C , Office (14417) HgA1C , Office 6.4 % (Normal) Range: 4.6 - 7.1 :02 Blood Glucose , Office (53068) Blood Glucose , Office 103 (Normal) :02 HgA1C , Office (13040) HgA1C , Office 6.7 % (Normal) Range: 4.6 - 7.1 :25 HgA1C , Office (18396) HgA1C , Office 6.2 % (Normal) Range: 4.6 - 7.1 :25 Blood Glucose , Office (02746) Blood Glucose , Office 135 (Normal) :27 Blood Glucose , Office (30220) Blood Glucose , Office 73 (Normal) :27 HgA1C , Office (75063) HgA1C , Office 5.9 % (Normal) Range: 4.6 - 7.1 :46 HgA1C , Office (75818) HgA1C , Office 5.8 % (Normal) Range: 4.6 - 7.1 :46 Blood Glucose , Office (05471) Blood Glucose , Office 118 (Normal) :58 HgA1C , Office (88140) HgA1C , Office 5.9 % (Normal) Range: 4.6 - 7.1 :58 Blood Glucose , Office (72560) Blood Glucose , Office 75 (Normal) :58 HgA1C , Office (96673) HgA1C , Office 5.6 % (Normal) Range: 4.6 - 7.1 :58 Blood Glucose , Office (97576) Blood Glucose , Office 99 (Normal) :06 [...] 7-18 GLU 100 mg/dL (Normal) Range: 70-110 40-Nae-679137:06 LIPID VLDL 20 mg/dL (Normal) Range: 5-40 [...] CHOL 207 mg/dL (Abnormal) Comments: <200 mg/dL Viprzizkw664-339 mg/dL Borderline>240 mg/dL High Risk 73-Dtw-911251:06 MIACRE MIALB 10.6 mg/L (Normal) tMICROCREAT 8.1 {mg/g_CRE} (Normal) CREU 130.8 mg/dL (Normal) 36-Foo-441056:06 TSH 1.00 {uIU/mL} (Normal) Range: 0.358-3.74 71-Ple-782900:06 VITD 50.4 mg/mL (Normal) Comments: Vitamin D 25(OH) Status RangeDeficiency <20 ng/mL (50nmol/L)Insuffciency 20 - 30 ng/mL (50 - 75 nmol/L)Sufficiency 30 - 100 ng/mL (75 - 250 nmol/L)Toxicity >100 ng/mL (>250 nmol/L) 8-Hpt-199585:26 URINE KASHIF CULTURE-IDENTIFICATN Comments: PATIENT NOT FASTINGPERFORMED BY: LabCoRehabilitation Hospital of South JerseyQoaacc5931 [facility] [id number] Information: [id number] (46890) Result 1 BETAGB (Abnormal) Comments: Beta hemolytic [...] (CLSI 2011) Urine Final report (Abnormal) Culture,Comprehensive 9-Nug-145394:07 Urinalysis, Office (83957) UA - LEUKOCYTE ESTERASE Small (Normal) UA - NITRITE Negative (Normal) URINE UROBILINGN ALEX TIMED Normal mg/dL (Normal) UA - PROTEIN Negative mg/dL (Normal) UA - PH 5 (Abnormal) UA - BLOOD Negative (Normal) UA - SPECIFIC GRAVITY 1.010 (Normal) UA - KETONES Negative mg/dL (Normal) UA - BILIRUBIN Negative (Normal) UA - GLUCOSE Negative (Normal) 2-Zfr-051395:06 HgA1C , Office (76212) HgA1C , Office 7.0 % (Normal) Range: 4.6 - 7.1 :06 Blood Glucose , Office (95965) Blood Glucose , Office 82 (Normal) :38 HgA1C , Office (09011) HgA1C , Office 6.4 % (Normal) Range: 4.6 - 7.1 :38 Blood Glucose , Office (44115) Blood Glucose , Office 106 (Normal) :47 [...] 126 mg/dLsuggests DIABETES MELLITUS per A.D.A. criteria. 40-Omg-128900:47 LIPID LDL 121 mg/dL (Normal) Range: 0-130 [...] CHOL 198 mg/dL (Normal) Comments: <200 mg/dL Acpcdcvqo340-550 mg/dL Borderline>240 mg/dL High Risk 84-Bqm-043993:47 MIACRE tMICROCREAT 5.7 {mg/g_CRE} (Normal) MIALB 5.0 mg/L (Normal) CREU 87.7 mg/dL (Normal) 08-Jsr-325713:47 TSH 0.62 {uIU/mL} (Normal) Range: 0.358-3.74 40-Gam-906487:47 UAC Comments: How was Urine Obtained? CLEAN [...] (Normal) UCLAR Clear (Normal) UCOL Yellow (Normal) 99-Oac-735511:47 VITD 24.7 mg/mL (Normal) Comments: Vitamin D 25(OH) Status RangeDeficiency <20 ng/mL (50nmol/L)Insuffciency 20 - 30 ng/mL (50 - 75 nmol/L)Sufficiency 30 - 100 ng/mL (75 - 250 nmol/L)Toxicity >100 ng/mL (>250 nmol/L) :35 HgA1C , Office (28564) HgA1C , Office 6.1 % (Normal) Range: 4.6 - 7.1 :35 Blood Glucose , Office (68128) Blood Glucose , Office 102 (Normal) :24 HgA1C , Office (97248) HgA1C , Office 5.9 % (Normal) Range: 4.6 - 7.1 :24 Blood Glucose , Office (90502) Blood Glucose , Office 375 (Normal) :13 [...] 4.2-5.4 WBC 5.5 {k/mm3} (Normal) Range: 4.4-11.0 81-Hmr-284848:13 CMP GAP 6 (Normal) Range: 5-15 CO2 [...] 126 mg/dLsuggests DIABETES MELLITUS per A.D.A. criteria. 36-Cyb-198132:13 LIPID VLDL 40 mg/dL (Normal) Range: 5-40 [...] CHOL 231 mg/dL (Abnormal) Comments: <200 mg/dL Vjplejnla303-430 mg/dL Borderline>240 mg/dL High Risk :13 MIACRE tMICROCREAT 7.0 {mg/g_CRE} (Normal) MIALB 9.2 mg/L (Normal) CREU 130.6 mg/dL (Normal) :13 TSH 0.64 {uIU/mL} (Normal) Range: 0.358-3.74 :[address] [facility] 0 SEEN {/hpf} (Normal) UBAC 0 [...] (Normal) UCLAR Clear (Normal) UCOL Yellow (Normal) 11-Cir-605505:13 VITD 28.1 ng/mL (Normal) Comments: Vitamin D 25(OH) Status RangeDeficiency <20 ng/mL (50nmol/L)Insufficiency 20 - 30 ng/mL (50 - 75 nmol/L)Sufficiency 30 - 100 ng/mL (75 - 250 nm ol/L)Toxicity >100 ng/mL (250 nmol/L) :40 HgA1C , Office (22128) HgA1C , Office 7.1 % (Normal) Range: 4.6 - 7.1 :40 Blood Glucose , Office (78726) Blood Glucose , Office 123 (Normal) 77-Jek-070730:05 Blood Glucose , Office (40880) Blood Glucose , Office 176 (Normal) 9-Egy-548895:43 HEPATIC FUNCTION PANEL Comments: PATIENT NOT FASTINGPERFORMED BY: [facility]Pixowl70 [facility] [id number] Information: [id number] (43633) ALT (SGPT) 146 [iU]/L (Abnormal) Range: 0-32 AST (SGOT) 101 [iU]/L (Abnormal) Range: 0-40 Alkaline Phosphatase, S 94 [iU]/L (Normal) Range: 25-150 Bilirubin, Direct 0.20 mg/dL (Normal) Range: 0.00-0.40 Albumin, Serum 4.5 g/dL (Normal) Range: 3.5-5.5 Bilirubin, Total 0.6 mg/dL (Normal) Range: 0.0-1.2 Protein, Total, Serum 7.1 g/dL (Normal) Range: 6.0-8.5 :14 Blood Glucose , Office (95565) Blood Glucose , Office 193 (Normal) :11 MICROALBUMIN: CREATININE RATIO Comments: PATIENT WAS FASTINGPERFORMED BY: LabCoFort Defiance Indian HospitalKjtcnu4589 [facility] [id number] (57121) AND (34326) Microalb/Creat Ratio 3.8 {mg/g_creat} (Normal) Range: 0.0-30.0 Microalbumin, Urine 6.3 ug/mL (Normal) Range: 0.0-17.0 Creatinine, Urine 167.6 mg/dL (Normal) Range: 15.0-278.0 :11 METABOLIC PANEL, COMPREHENSIVE Comments: PATIENT WAS FASTINGPERFORMED BY: [employer] [id number] (04781) ALT (SGPT) 59 [iU]/L (Abnormal) Range: 0-32 [...] Glucose, Serum 177 mg/dL (Abnormal) Range: 65-99 :11 CBC WITH MANUAL DIFF Comments: PATIENT WAS FASTINGPERFORMED BY: [employer] Jacome [facility] [id number] Information: [id number] (70116) Immature Grans (Abs) 0.0 {x10E3/uL} (Normal) Range: [...] 3.77-5.28 WBC 3.7 {x10E3/uL} (Abnormal) Range: 4.0-10.5 34-Xwi-03496:11 LIPID PANEL (25942) Comments: PATIENT WAS FASTINGPERFORMED BY: LabCoRehabilitation Hospital of South JerseyVtdlww1977 Ayaz [facility] [id number] LDL/HDL Ratio 2.9 {ratio_units} (Normal) Range: 0.0-3.2 LDL Cholesterol Calc 153 mg/dL (Abnormal) Range: 0-99 VLDL Cholesterol Josep 32 mg/dL (Normal) Range: 5-40 HDL Cholesterol 53 mg/dL (Normal) Comments: According to ATP-III Guidelines, HDL-C >59 mg/dL is considered anegative risk factor for CHD. Triglycerides 162 mg/dL (Abnormal) Range: 0-149 Cholesterol, Total 238 mg/dL (Abnormal) Range: 100-199 :11 Vitamin D Hydroxy (61396) Comments: PATIENT WAS FASTINGPERFORMED BY: [facility] Ewqlpi0818 [facility] [id number] Vitamin D, 25-Hydroxy 63.5 ng/mL (Normal) Range: 30.0-100.0 Comments: Vitamin D deficiency has been defined by the [place] of[facility] Centercine and an Endocrine Society practice guideline as alevel of serum 25-OH vitamin D less than 20 ng/mL (1,2).The Endocrine Society went on to further define vitamin Dinsufficiency as a level between 21 and 29 ng/mL (2).1. IOM ([place] of Medicine). 2010. Dietary reference intakes for calcium and D. [place]: The National Academies Press.2. Elizabeth MF, Charles NC, Silke BATISTA, et al. Evaluation, treatment, and prevention of vitamin D deficiency: an Endocrine Society clinical practice guideline. JCEM. 2010; 96(7):1911-30. :10 HgA1C , Office (05643) HgA1C , Office 5.8 % (Normal) Range: 4.6 - 7.1 :10 Blood Glucose , Office (58739) Blood Glucose , Office 194 (Normal) Comments: fasting :15 HgA1C , Office (32322) HgA1C , Office 5.7 % (Normal) Range: 4.6 - 7.1 :15 Blood Glucose , Office (74349) Blood Glucose , Office 178 (Normal) :15 Vitamin D Hydroxy (13041) Comments: PATIENT NOT FASTINGPERFORMED BY: [facility] Hscihw2918 [facility] [id number] Information: [id number] Vitamin D, 25-Hydroxy 60.0 ng/mL (Normal) Range: 30.0-100.0 Comments: Vitamin D deficiency has been defined by the [place] ofMedicine and an Endocrine Society practice guideline as alevel of serum 25-OH vitamin D less than 20 ng/mL (1,2).The Endocrine Society went on to further define vitamin Dinsufficiency as a level between 21 and 29 ng/mL (2).1. IOM ([place] of Medicine). 2010. Dietary reference intakes for calcium and D. [place]: The National Academies Press.2. Elizabeth MF, Charles LUNDY, Silke BATISTA, et al. Evaluation, treatment, and prevention of vitamin D deficiency: an Endocrine Society clinical practice guideline. JCEM. 2010; 96(7):1911-30. 42-Zgx-355777:54 METABOLIC PANEL, Comments: PATIENT WAS FASTINGPERFORMED BY: LabCoRehabilitation Hospital of South JerseyEunlda7291 [facility] [id number] Information: [id number] COMPREHENSIVE (61482) ALT (SGPT) 24 [iU]/L (Normal) Range: 0-40 [...] mg/dL (Abnormal) Range: 65-99 :54 LIPID PANEL (41303) Comments: PATIENT WAS FASTINGPERFORMED BY: [employer] LabCoCibandoVgpmor1701 [facility] [id number] LDL/HDL Ratio 2.5 {ratio_units} (Normal) Range: 0.0-3.2 LDL Cholesterol Calc 144 mg/dL (Abnormal) Range: 0-99 VLDL Cholesterol Josep 28 mg/dL (Normal) Range: 5-40 HDL Cholesterol 58 mg/dL (Normal) Comments: According to ATP-III Guidelines, HDL-C >59 mg/dL is considered anegative risk factor for CHD. Triglycerides 141 mg/dL (Normal) Range: 0-149 Cholesterol, Total 230 mg/dL (Abnormal) Range: 100-199 :54 Vitamin D Hydroxy (93449) Comments: PATIENT WAS FASTINGPERFORMED BY: [employer] [facility] Cvvvpy3216 [facility] [id number] Vitamin D, 25-Hydroxy 28.0 ng/mL (Abnormal) Range: 30.0-100.0 Comments: Vitamin D deficiency has been defined by the [place] ofMedicine and an Endocrine Society practice guideline as alevel of serum 25-OH vitamin D less than 20 ng/mL (1,2).The Endocrine Society went on to further define vitamin Dinsufficiency as a level between 21 and 29 ng/mL (2).1. IOM ([place] of Medicine). 2010. Dietary reference intakes for calcium and D. [place]: The National Academies Press.2. Elizabeth MF, Charles NC, Silke BATISTA, et al. Evaluation, treatment, and prevention of vitamin D deficiency: an Endocrine Society clinical practice guideline. JCEM. 2010; 96(7):1911-30. 35-Xsg-981242:35 HgA1C , Office (96016) HgA1C , Office 5.6 % (Normal) Range: 4.6 - 7.1 13-Ssn-675627:35 Blood Glucose , Office (57528) Blood Glucose , Office 129 (Normal) :45 CBC With Differential/Platelet Comments: Test(s) WBC; Platelets; Neutrophils (Absolute) called to YUNIER Jenkins on 11/29/2011 at 14:08 ESTPATIENT WAS FASTINGPERFORMED BY: GURDEEP [facility] Zlcche8224 [facility] [id number] Hematology Comments: Note: (Normal) Comments: Manual differential [...] Test(s) WBC; Platelets; Neutrophils (Absolute) called to [facility] on 11/29/2011 at 14:08 ESTPATIENT WAS FASTINGPERFORMED BY: [facility]6370 [facility] [id number] Blasts/blast like cells 21 % (Abnormal) Range: 0 - 0 :45 Lipid Panel With LDL/HDL Comments: Test(s) WBC; Platelets; Neutrophils (Absolute) called to [facility] on 11/29/2011 at 14:08 ESTPATIENT WAS FASTINGPERFORMED BY: [facility]6370 [facility] [id number] Ratio LDL/HDL Ratio 1.2 {ratio_units} (Normal) Range: 0.0-3.2 LDL Cholesterol Calc 52 mg/dL (Normal) Range: 0-99 VLDL Cholesterol Josep 22 mg/dL (Normal) Range: 5-40 HDL Cholesterol 43 mg/dL (Normal) Comments: According to ATP-III Guidelines, HDL-C >59 mg/dL is considered anegative risk factor for CHD. 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 Suggest bone marrowevaluation and flow cytometry and cytogenetics. Pathologist Comment: (Normal) Comments: This case was reviewed by Lila Kingsley M.D. PLTs Comment: (Normal) Comments: Thrombocytopenia.Few large platelets were observed. RBC Comment: (Normal) Comments: Decreased.Slight anisocytosis.Poikilocytosis.Rare nucleated RBC seen. WBC Comment: (Normal) Comments: Leukopenia. :54 HgA1C , Office (66322) HgA1C , Office 6.6 % (Normal) Range: 4.6 - 7.1 :54 Blood Glucose , Office (18280) Blood Glucose , 197 (Normal) Office Vitamin D, 23.4 ng/mL Comments: Test(s) WBC; Neutrophils (Absolute) called to Dr Wilson on 11/18/2011 at 05:44 ESTPATIENT NOT FASTINGPERFORMED BY: [facility] [id number] :[id number] 25-Hydroxy (Abnormal) Range: 30.0-100.0 Comments: Vitamin D deficiency has been defined by the [place] ofMedicine and an Endocrine Society practice guideline as alevel of serum 25-OH vitamin D less than 20 ng/mL (1,2).The Endocrine Society went on to further define vitamin Dinsufficiency as a level between 21 and 29 ng/mL (2).1. IOM ([place] of Medicine). 2010. Dietary reference intakes for calcium and D. [place]: The National Academies Press.2. Elizabeth MF, Charles NC, Silke BATISTA, et al. Evaluation, treatment, and prevention of vitamin D deficiency: an Endocrine Society clinical practice guideline. JCEM. 2010; 96(7):1911-30. 93-Wxe-417106:05 BLD CNT, MANUAL CELL COUNT, Comments: Test(s) WBC; Neutrophils (Absolute) called to Dr Wilson on 11/18/2011 at 05:44 ESTPATIENT NOT FASTINGPERFORMED BY: [facility] [facility] [id number] EACH (88782) Hematology Comments: Note: (Normal) Comments: Verified by [...] 3.80-5.10 WBC 1.2 {x10E3/uL} (Abnormal) Range: 4.0-10.5 81-Ujv-895458:05 EBV Panel (11434) Comments: Test(s) WBC; Neutrophils (Absolute) called to Dr Wilson on 11/18/2011 at 05:44 ESTPATIENT NOT FASTINGPERFORMED BY: [facility] [id number] Interpretation: SPRCS (Normal) Comments: EBV Interpretation Chart [...] <0.9 Equivocal 0.9 - 1.0 Positive >1.0 :55 CBCMD PATHR Reviewed (Normal) Comments: Leukopenia and [...] TSH 0.80 {uIU/mL} (Normal) Range: 0.358-3.74 :[address] [facility] UMUC 1+ {/hpf} (Normal) UBAC 0 SEEN [...] D deficiency has been defined by the [place] ofMedicine and an Endocrine Society practice guideline as alevel of serum 25-OH vitamin D less than 20 ng/mL (1,2).The Endocrine Society went on to further define vitamin Dinsufficiency as a level between 21 and 29 ng/mL (2).1. IOM ([place] of [employer]). 2010. Dietary reference intakes for calcium and D. [place]: The National Academies Press.2. Elizabeth MF, Charles NC, Silke BATISTA, et al. Evaluation, treatment, and prevention of vitamin D deficiency: an Endocrine Society clinical practice guideline. JCEM. 2010; 96(7): 1911-30. .Effective November 01, 2011, Vitamin D, 25 Hydroxy specimen requirements will change to serum only.Performed at: [facility] Lab[address] [id number] Director: Lila Kingsley MD, Phone: [phone] GLU 158 mg/dL (Abnormal) Comments: PATIENT [...] Dictated on 05/31/[address] MDribed on 06/01/111702 by ITS IMPORTSign by Mitch Street MD on 06/01/111702 Sign by: Mitch Street MD 18-Gst-192651:20 HgA1C , Office (15468) HgA1C , Office 6.7 % (Normal) Range: 4.6 - 7.1 :20 Blood Glucose , Office (14790) Blood Glucose , Office 175 (Normal) :00 [...] per A.D.A. criteria. :22 HgA1C , Office (92606) HgA1C , Office 6.7 % (Normal) Range: 4.6 - 7.1 :22 Blood Glucose , Office (11359) Blood Glucose , Office 205 (Normal) 23-Tee-018437:00 CHEST WITH CONTRAST Radiology Report See Note [...] 11/19/10 1326 Sign by: JAMARI HARRIS MD 72-Cls-962394:47 HgA1C , Office (74971) HgA1C , Office 6.8 % (Normal) Range: 4.6 - 7.1 :47 Blood Glucose , Office (84185) Blood Glucose , Office 175 (Normal) :54 [...] {uIU/mL} (Normal) Range: 0.358-3.74 :54 VITD 1,25 88127 39.5 pg/mL (Normal) Range: 10.0-75.0 Comments: Performed at: [facility] Lab[address] [id number] Director: Madi Chandler MD, Phone: [phone] 27-Fbp-840761:52 HgA1C , Office (21350) HgA1C , Office 6.8 % (Normal) Range: 4.6 - 7.1 99-Pld-914066:52 Blood Glucose , Office (50851) Blood Glucose , Office 117 (Normal) :35 [...] mg/dL High Risk :55 HgA1C , Office (08967) Comments: done HgA1C , Office 6.3 % (Normal) Range: 4.6 - 7.1 :55 Blood Glucose , Office (93067) Comments: done Blood Glucose , Office 111 (Normal) :10 HgA1C , Office (17855) Comments: done HgA1C , Office 6.6 % (Normal) Range: 4.6 - 7.1 :10 Blood Glucose , Office (72739) Comments: done Blood Glucose , Office 108 (Normal) 2-Xbn-983177:00 CBCD,SMEAR DIFF ABSOLUTE NEUT 2.6 3/uL (Normal) [...] 4.2-5.4 WBC 5.5 K/mm3 (Normal) Range: 4.4-11.0 1-Klv-762811:00 COMP METABOLIC ALK P 94 U/L (Normal) [...] <126 mg/dLsuggests IMPAIRED HOMEOSTASIS per A.D.A. criteria. 1-Ouc-677135:00 LIPID CHOL 129 mg/dL (Normal) Comments: <200 mg/dL Pubmgbqxm659-512 mg/dL Borderline>240 mg/dL High Risk HDL 46 mg/dL (Normal) Comments: Reference RangeHDL <40 mg/dL Low HDL CholesterolHDL >or= 60 mg/dL High HDL Cholesterol LDL 69 mg/dL (Normal) Range: 0-130 TRIG 69 mg/dL (Normal) Comments: Serum Triglycerides Reference IntervalNormal <150 mg/dLBorderline high 150 - 199 mg/dLHigh 200 - 499 mg/ dLVery High > or = 500 mg/dL VLDL 14 mg/dL (Normal) Range: 5-40 0-Pjs-412379:00 MICROALB:CRE UR MALB:CREAT 3.4 {mg/g_CRE} (Normal) MICROALBUMIN,UR 6.9 mg/L (Normal) UR CREAT 199.6 mg/dL (Normal) 1-Qmq-425394:00 NMR LIPOPROFILE HDL SIZE 8.5 nm (Abnormal) [...] DIABETES RISK MARKERS<--Insulin Sensitive Insulin Resistant-->Percentile in [facility] PopulationLarge VLDL-P Low 25th 50th 75th High<0.9 [...] High<27 27 45 63 >63 Performed at: [facility] [address] [place], [place] [id number] Director: Kirit Venegas PhD SMALL LDL-P 889 [...] (Normal) Range: 0.358-3.74 :44 HgA1C , Office (94911) Comments: done km HgA1C , Office 7.3 % (Abnormal) Range: 4.6 - 7.1 :44 Blood Glucose , Office (62660) Comments: done km Blood Glucose , Office 153 (Normal) :59 Blood Glucose , Office (03010) Blood Glucose , Office 102 (Normal) :59 HgA1C , Office (49611) HgA1C , Office 6.5 % (Normal) Range: [...] (Normal) Range: 0.358-3.74 :56 HgA1C , Office (75758) HgA1C , Office 6.4 % (Normal) Range: 4.6 - 7.1 :56 Blood Glucose , Office (14489) Blood Glucose , Office 235 (Normal) :55 HgA1C , Office (30766) Comments: done km HgA1C , Office 6.7 % (Normal) Range: 4.6 - 7.1 :55 Blood Glucose , Office (13282) Comments: done km Blood Glucose , Office 123 (Normal) :54 UPPER EXT/NO JT W/O CONTRAST Radiology Report See Note (Normal) Comments: Exam Number: [id number] MRI LEFT UPPER EXTREMITY ON THE OPEN [...] JAMARI TRAN M.D. :02 HgA1C , Office (26294) HgA1C , Office 6.0 % (Normal) Range: 4.6 - 7.1 :02 Blood Glucose , Office (33759) Blood Glucose , Office 151 (Normal) :33 HgA1C , Office (17956) HgA1C , Office 6.3 % (Normal) Range: 4.6 - 7.1 Comments: :33 Blood Glucose , Office (26820) Blood Glucose , Office 136 (Normal) Comments: [...] 47-70 WBC 6.1 K/mm3 (Normal) Range: 4.4-11.0 05-Gnv-068335:44 COMP METABOLIC A/G 1.1 {RATIO} (Normal) Range: [...] (Normal) Range: 0.34-4.82 :58 HgA1C , Office (88234) HgA1C , Office 5.9 % (Normal) Range: [...] Report See Note (Normal) Comments: Exam Number: [id number] PA AND LATERAL CHEST HISTORY Being done for cough. Cardiac configuration is normal. No acute infiltrate, effusion, orpneumothorax is identified. IMPRESSIONNo acu te change no marion in the lungs. Reported By: LESLIE VOSS M.D. :19 HgA1C , Office (87906) Comments: done km HgA1C , Office 6.0 % (Normal) Range: 4.6 - 7.1 02-Vxp-852121:19 Blood Glucose , Office (39992) Comments: done Blood Glucose , Office 93 (Normal) 7-Lzw-762696:12 FOOT,MIN 3 VIEWS Radiology Report See Note (Normal) Comments: Exam Number: [id number] LEFT FOOT, 3 VIEWS HISTORYPain. TECHNIQUEAP, lateral, [...] metatarsal head. Reported By: LESLIE VOSS M.D. 0-Kmi-153071:11 LIPID CHOL 205 mg/dL (Abnormal) Comments: <200 [...] mg/dL VLDL 15 mg/dL (Normal) Range: 5-40 3-Jes-357317:15 HgA1C , Office (87704) Comments: HgA1C , Office 6.0 % (Normal) Range: 4.6 - 7.1 2-Fmx-560059:15 Blood Glucose , Office (83846) Comments: Blood Glucose , Office 90 (Normal) 01-Aug-20078:10 LIPID PANEL (51118) Comments: do in 3mo; PATIENT WAS FASTINGClinical Information: ADD DRAW FEE [id number] ADD J0 2135 PERFORMED BY: [facility]u[address] [facility] [id number] Cholesterol, Total 227 mg/dL (Abnormal) Range: 100-199 Comment SPRCS (Normal) Comments: If initial LDL-cholesterol result is >100 mg/dL, assess forrisk factors. HDL Cholesterol 46 mg/dL (Normal) Range: 40-59 LDL Cholesterol Calc 165 mg/dL (Abnormal) Range: 0-99 LDL/HDL Ratio 3.6 {ratio_units} (Abnormal) Range: 0.0-3.2 Triglycerides 79 mg/dL (Normal) Range: 0-149 VLDL Cholesterol Josep 16 mg/dL (Normal) Range: 5-40 :55 Blood Glucose , Office (27945) Comments: done km Blood Glucose , Office 123 (Normal) :55 HgA1C , Office (16190) Comments: done km HgA1C , Office 7.7 % (Abnormal) Range: 4.6 - 7.1 :55 GLUP 343 mg/dL (Abnormal) Comments: GLU,2HPPG 75gm GLUC PPG GLUP from 0825:L10935P. Comments: Glucose result greater than or equal [...] (Normal) Range: 0.2 - 1.0 :44 TYESHA-D 871293 TYESHA-DIRECT 57 U/mL (Normal) Range: 0-99 Comments: [...] {IU/mL} (Normal) Range: 0.0-13.9 Comments: Performed At: [facility] [place] [address] [id number] :44 TSH 0.76 {uIU/mL} (Normal) Range: 0.34-4.82 :46 MYOCARD PERF SPECT REST/STRESS Radiology Report See Note (Normal) Comments: Exam Number: [id number] MYOCARDIAL PERFUSION SCAN 13.8 millicuries of Tc99m Sestamibi was injected at rest. The patientthen exercised according to the regular Aguilar protocol for 6 minutesand 5 seconds a ttaining 97% of maximum predicted heart rate and workload of 7.1 METs. At peak exercise, 36.0 millicuries of Fx74bWitjddlix was injected. Stress images were then obtained. [...] LEUKEMIA, PLASMA CELL IN REMISSION : Reviewed Brand Executive Letter Indication: LEUKEMIA, PLASMA CELL IN REMISSION [...] LEUKEMIA, PLASMA CELL IN REMISSION : Reviewed Brand Executive Letter Indication: LEUKEMIA, PLASMA CELL IN REMISSION [...] LEUKEMIA, PLASMA CELL IN REMISSION : Reviewed Brand Executive Letter Indication: LEUKEMIA, PLASMA CELL IN REMISSION Asthma : Continue Current Prescription(s) Indication: Asthma Mixed hyperlipidemia : Cholesterol mgmt Indication: Mixed hyperlipidemia Controlled diabetes mellitus type II without complication : Diabetes Mellitus: Type 2 *: diabetes mellitus Indication: Controlled diabetes mellitus type II without complication LEUKEMIA, PLASMA CELL IN REMISSION : Reviewed Brand Executive Letter Indication: LEUKEMIA, PLASMA CELL IN REMISSION [...] and Vomiting Nausea and Vomiting : Reviewed Brand Executive Letter Indication: Nausea and Vomiting Nausea and [...] LEUKEMIA, PLASMA CELL IN REMISSION : Reviewed Brand Executive Letter Indication: LEUKEMIA, PLASMA CELL IN REMISSION Vitamin D deficiency, unspecified : Reviewed Lab Indication: Vitamin D deficiency, unspecified Controlled diabetes mellitus type II without complication : Diabetes Mellitus: Type 2 *: high blood glucose Indication: Controlled diabetes mellitus type II without complication Controlled diabetes mellitus type II without complication : Reviewed Brand Executive Letter Indication: Controlled diabetes mellitus type II [...] Hyperlipidemia Planned Observations LIPOPROTEIN, BLD, BY NMR (88269)Indication: Mixed hyperlipidemia On: 65-Iip-875880:54 Request CALCIFIDIOL (02477) VIT D 25Indication: Vitamin D deficiency, unspecified On: :54 Request TSH (36402)Indication: Controlled diabetes mellitus type II without complication On: :53 Request URINALYSIS, W/ MICRO (99115)Indication: Controlled diabetes mellitus type II without complication On: :53 Request MICROALBUMIN: CREATININE RATIO (54735) AND (68887)Indication: Controlled diabetes mellitus type II without complication On: 48-Nlf-399359:53 Request METABOLIC PANEL, COMPREHENSIVE (76738)Indication: Controlled diabetes mellitus type II without complication On: :53 Request CBC W/AUTO DIFF WBC (06054)Indication: Controlled diabetes mellitus type II without complication On: 06-Tcv-828462:53 Request HGB A1C (30733)Indication: Diabetes type 2, uncontrolled On: 89-Lpp-847193:41 Request MICROALBUMIN: CREATININE RATIO (67182) AND (14300)Indication: Hypertension, benign On: 01-Qem-449600:03 Request URINALYSIS (34345)Indication: Hypertension, benign On: 92-Wuw-976386:03 Request Metabolic Panel, Comprehensive (96849)Indication: Hypertension, benign On: :03 Request TSH (51285)Indication: Hypertension, benign On: 23-Qdp-375289:03 Request CALCIFEDIOL (07404)Indication: Vitamin D deficiency, unspecified On: :03 Request CBC WITH MANUAL DIFF (33317)Indication: Mixed hyperlipidemia On: 80-Sew-404522:02 Request Lipid Panel (52123)Indication: Mixed hyperlipidemia On: 32-Jec-392684:02 Request HGB A1C (10227)Indication: Diabetes type 2, uncontrolled On: 14-Ybe-232066:02 Request CALCIFEDIOL (60535)Indication: Vitamin D deficiency, unspecified On: 8-Bxc-154696:59 Request HGB A1C (70224)Indication: Controlled diabetes mellitus type II without complication On: :42 Request CALCIFIDIOL (45471) VIT D 25Indication: Vitamin D deficiency, unspecified On: :32 Request TSH (25716)Indication: Controlled diabetes mellitus type II without complication On: :32 Request URINALYSIS, W/ MICRO (87174)Indication: Controlled diabetes mellitus type II without complication On: :32 Request MICROALBUMIN: CREATININE RATIO (66969) AND (99531)Indication: Controlled diabetes mellitus type II without complication On: :32 Request METABOLIC PANEL, COMPREHENSIVE (85335)Indication: Controlled diabetes mellitus type II without complication On: 7-Tzu-633792:32 Request LIPID PANEL (35555)Indication: Controlled diabetes mellitus type II without complication On: :32 Request CBC W/AUTO DIFF WBC (87917)Indication: Controlled diabetes mellitus type II without complication On: :32 Request TSH (15152)Indication: Mixed hyperlipidemia On: :55 Request URINALYSIS, W/ MICRO (42480)Indication: Controlled diabetes mellitus type II without complication On: :55 Request MICROALBUMIN: CREATININE RATIO (86184) AND (18439)Indication: Controlled diabetes mellitus type II without complication On: :55 Request CBC W/AUTO DIFF WBC (36758)Indication: Controlled diabetes mellitus type II without complication On: :52 Request METABOLIC PANEL, COMPREHENSIVE (51265)Indication: Controlled diabetes mellitus type II without complication On: :52 Request CALCIFIDIOL (06693) VIT D 25Indication: Vitamin D deficiency, unspecified On: :52 Request LIPID PANEL (82579)Indication: Mixed hyperlipidemia On: 33-Cjd-619872:52 Request CALCIFIDIOL (53142) VIT D 25Indication: Vitamin D deficiency, unspecified On: :32 Request TSH (18603)Indication: Controlled diabetes mellitus type II without complication On: :32 Request URINALYSIS, W/ MICRO (94777)Indication: Controlled diabetes mellitus type II without complication On: :32 Request MICROALBUMIN: CREATININE RATIO (72927) AND (14273)Indication: Controlled diabetes mellitus type II without complication On: :32 Request METABOLIC PANEL, COMPREHENSIVE (89590)Indication: Controlled diabetes mellitus type II without complication On: :32 Request CBC W/AUTO DIFF WBC (22522)Indication: Controlled diabetes mellitus type II without complication On: :32 Request TSH (80640)Indication: Diabetes type 2, uncontrolled On: :28 Request URINALYSIS, W/ MICRO (59889)Indication: Diabetes type 2, uncontrolled On: :28 Request MICROALBUMIN: CREATININE RATIO (98704) AND (51082)Indication: Diabetes type 2, uncontrolled On: 80-Qex-457657:28 Request METABOLIC PANEL, COMPREHENSIVE (99612)Indication: Diabetes type 2, uncontrolled On: :27 Request LIPID PANEL (13746)Indication: Mixed hyperlipidemia On: :27 Request CBC W/AUTO DIFF WBC (02788)Indication: Diabetes type 2, uncontrolled On: : Request CALCIFIDIOL (62870) VIT D 25Indication: Vitamin D deficiency, unspecified On: :27 Request Vitamin D Hydroxy (23377)Indication: Vitamin D deficiency, unspecified On: 0-Jsc-043498:46 Request TSH (77927)Indication: Controlled diabetes mellitus type II without complication On: 4-Dlm-479211:17 Request URINALYSIS, W/ MICRO (84905)Indication: Hypertension On: 9-Cim-269207:17 Request MICROALBUMIN: CREATININE RATIO (63924) AND (80548)Indication: Controlled diabetes mellitus type II without complication On: 2-Kok-303800:17 Request METABOLIC PANEL, COMPREHENSIVE (66027)Indication: Hypertension On: 2-Kiv-767546:17 Request LIPID PANEL (51563)Indication: Hypertension On: :17 Request CBC with auto diff (17477)Indication: Hypertension On: 9-Muj-176315:17 Request Vitamin D Hydroxy (02314)Indication: Vitamin D deficiency, unspecified On: 7-Etm-635849:17 Request Vitamin D Hydroxy (42511)Indication: Controlled diabetes mellitus type II without complication On: 4-Fnr-275633:57 Request TSH (75255)Indication: Controlled diabetes mellitus type II without complication On: 0-Kwi-175981:57 Request URINALYSIS, W/ MICRO (23614)Indication: Controlled diabetes mellitus type II without complication On: 7-Eja-484439:57 Request MICROALBUMIN: CREATININE RATIO (10910) AND (32122)Indication: Controlled diabetes mellitus type II without complication On: 6-Usz-258785:57 Request METABOLIC PANEL, COMPREHENSIVE (70106)Indication: Controlled diabetes mellitus type II without complication On: 0-Hty-661090:57 Request LIPID PANEL (40790)Indication: Mixed hyperlipidemia On: 5-Rfc-180856:57 Request CBC W/AUTO DIFF WBC (44349)Indication: Controlled diabetes mellitus type II without complication On: 7-Srl-720171:56 Request Vitamin D Hydroxy (50653)Indication: Vitamin D deficiency, unspecified On: :01 Request LIPID PANEL (20016)Indication: Vitamin D deficiency, unspecified On: 0-Qcn-842713:01 Request TSH (94565)Indication: Diabetes type 2, uncontrolled On: 1-Uhz-299501:00 Request URINALYSIS, W/ MICRO (35776)Indication: Diabetes type 2, uncontrolled On: 3-Cdd-208992:00 Request MICROALBUMIN: CREATININE RATIO (05107) AND (97645)Indication: Diabetes type 2, uncontrolled On: :00 Request METABOLIC PANEL, COMPREHENSIVE (67793)Indication: Diabetes type 2, uncontrolled On: :00 Request CBC WITH MANUAL DIFF (11507)Indication: Diabetes type 2, uncontrolled On: 7-Mdx-919988:00 Request CALCIFIDIOL (41199) VIT D 25Indication: Vitamin D deficiency, unspecified On: 1-Srv-871974:55 Request Vitamin D Hydroxy (19967)Indication: Vitamin D deficiency, unspecified On: 1-Qxc-870168:13 Request TSH (23611)Indication: Diabetes type 2, uncontrolled On: 4-Xov-579721:13 Request URINALYSIS, W/ MICRO (12075)Indication: Diabetes type 2, uncontrolled On: 6-Mgu-736003:13 Request MICROALBUMIN: CREATININE RATIO (43865) AND (98676)Indication: Diabetes type 2, uncontrolled On: 1-Yvd-277772:13 Request METABOLIC PANEL, COMPREHENSIVE (13446)Indication: Diabetes type 2, uncontrolled On: 7-Dbo-108796:13 Request CBC WITH MANUAL DIFF (46996)Indication: Diabetes type 2, uncontrolled On: 9-Ove-177252:13 Request LIPID PANEL (29346)Indication: Diabetes type 2, uncontrolled On: 8-Jsk-632791:13 Request Vitamin D Hydroxy (30901)Indication: Vitamin D deficiency, unspecified On: 8-Pke-617433:00 Request TSH (71986)Indication: Diabetes type 2, uncontrolled On: 3-Lal-695028:59 Request URINALYSIS, W/ MICRO (60657)Indication: Diabetes type 2, uncontrolled On: :59 Request MICROALBUMIN: CREATININE RATIO (67936) AND (97708)Indication: Diabetes type 2, uncontrolled On: :59 Request METABOLIC PANEL, COMPREHENSIVE (33237)Indication: Diabetes type 2, uncontrolled On: :59 Request LIPID PANEL (06688)Indication: Diabetes type 2, uncontrolled On: :59 Request CBC WITH MANUAL DIFF (88853)Indication: Diabetes type 2, uncontrolled On: :59 Request Lipid Panel (34360)Indication: Vitamin D deficiency, unspecified On: :12 Request HEPATIC FUNCTION PANEL (19117)Indication: Vitamin D deficiency, unspecified On: :12 Request LIPID PANEL (69726)Indication: Vitamin D deficiency, unspecified On: 9-Vyw-793791:04 Request CBC with manual diff (52284)Indication: Leukopenia On: 58-Yam-044627:14 Request VITAMIN B12 AND FOLATES (27029)Indication: Leukopenia On: 81-Dfb-563343:14 Request TSH (83493)Indication: Diabetes type 2, uncontrolled On: 00-Ycy-455660:42 Request URINALYSIS, W/ MICRO (39860)Indication: Diabetes type 2, uncontrolled On: 62-Kcq-958265:42 Request MICROALBUMIN: CREATININE RATIO (83081) AND (64984)Indication: Diabetes type 2, uncontrolled On: 06-Vsl-787373:42 Request METABOLIC PANEL, COMPREHENSIVE (66910)Indication: Diabetes type 2, uncontrolled On: 44-Ohw-759940:42 Request CBC WITH MANUAL DIFF (38670)Indication: Diabetes type 2, uncontrolled On: 73-Xqp-089187:42 Request CALCIFIDIOL (48538) VIT D 25Indication: Vitamin D deficiency, unspecified On: 20-Tsf-117273:42 Request LIPID PANEL (85759)Indication: Mixed hyperlipidemia On: 60-Swk-852504:06 Request TSH (40579)Indication: Diabetes type 2, uncontrolled On: 51-Qku-756790:33 Request MICROALBUMIN: CREATININE RATIO (33130) AND (21145)Indication: Diabetes type 2, uncontrolled On: :33 Request METABOLIC PANEL, COMPREHENSIVE (99326)Indication: Diabetes type 2, uncontrolled On: Request LIPOPROTEIN, BLD, BY NMR (71445)Indication: Diabetes type 2, uncontrolled On: : Request LIPID PANEL (33239)Indication: Diabetes type 2, uncontrolled On: : Request CBC WITH MANUAL DIFF (31452)Indication: Diabetes type 2, uncontrolled On: : Request LIPID PANEL (51558)Indication: Mixed hyperlipidemia On: : Request LIPOPROTEIN, BLD, BY NMR (06473)Indication: Mixed hyperlipidemia On: : Request Comments: DO IN 3 MONTHS TSH (98343)Indication: Controlled diabetes mellitus type II without complication On: :34 Request MICROALBUMIN: CREATININE RATIO (02092) AND (51923)Indication: Controlled diabetes mellitus type II without complication On: :34 Request METABOLIC PANEL, COMPREHENSIVE (76786)Indication: Controlled diabetes mellitus type II without complication On: :34 Request LIPOPROTEIN, BLD, BY NMR (26209)Indication: Controlled diabetes mellitus type II without complication On: :34 Request LIPID PANEL (88468)Indication: Controlled diabetes mellitus type II without complication On: :34 Request CBC WITH MANUAL DIFF (20059)Indication: Controlled diabetes mellitus type II without complication On: :34 Request MICROALBUMIN: CREATININE RATIO (22589) AND (36677)Indication: Controlled diabetes mellitus type II without complication On: 73-Twg-437877:08 Request URINALYSIS W/O MICRO (36416)Indication: Benign essential hypertension On: 69-Why-680352:08 Request TSH (71523)Indication: Benign essential hypertension On: 71-Juv-378947:08 Request LIPID PANEL (33250)Indication: Benign essential hypertension On: :08 Request METABOLIC PANEL, COMPREHENSIVE (86915)Indication: Benign essential hypertension On: :08 Request CBC WITH MANUAL DIFF (03438)Indication: Benign essential hypertension On: 14-Yud-330457:08 Request HEPATIC FUNCTION PANEL (56228)Indication: Mixed hyperlipidemia On: 85-Juw-205712:58 Request TSH (49175)Indication: Controlled diabetes mellitus type II without complication On: 65-Kti-090778:17 Request MICROALBUMIN: CREATININE RATIO (29511) AND (98191)Indication: Controlled diabetes mellitus type II without complication On: :17 Request METABOLIC PANEL, COMPREHENSIVE (22151)Indication: Controlled diabetes mellitus type II without complication On: :17 Request CBC WITH MANUAL DIFF (21500)Indication: Controlled diabetes mellitus type II without complication On: :17 Request LIPID PANEL (03825)Indication: Controlled diabetes mellitus type II without complication On: :17 Request LIPID PANEL (54353)Indication: Mixed hyperlipidemia On: 4-Adp-343680:46 Request Glucose, PP/2 Hour (40917)Indication: Other specified abnormal findings of blood chemistry On: :06 Request LIPID PANEL (91399)Indication: Mixed hyperlipidemia On: 72-Lrv-52448:06 Request Comments: do in 4 months TSH (81508)Indication: Fatigue On: :31 Request Folate (23691)Indication: Fatigue On: :31 Request VITAMIN B-12 (CYANOCOBALAMIN) (52393)Indication: Fatigue On: :31 Request SED RATE ERYTHROCYTE (93428)Indication: Fatigue On: :31 Request RHEUMATOID FACTOR-QUANT (31660)Indication: Fatigue On: :31 Request C-REACTIVE PROTEIN (66305)Indication: Fatigue On: 6-Plp-897728:31 Request METABOLIC PANEL, COMPREHENSIVE (35199)Indication: Fatigue On: :31 Request CBC (AUTO) (84238)Indication: Fatigue On: :31 Request TYESHA (ANTINUCLEAR ANTIBODY) (41263)Indication: Fatigue On: 0-Syk-379544:31 Request TSH ([id number])Indication: Hypertension On: :28 Request URINALYSIS W/O MICRO ([id number])Indication: Hypertension On: :28 Request MICROALBUMIN URINE QUANT ([id number])Indication: Hypertension On: :28 Request METABOLIC PANEL, COMPREHENSIVE ([id number])Indication: Hypertension On: :28 Request CBC WITH MANUAL DIFF ([id number])Indication: Hypertension On: :28 Request LIPID PANEL ([id number])Indication: Mixed hyperlipidemia On: :28 Request METABOLIC PANEL, BASIC ([id number])Indication: Hypertension On: [id number] Request Comments: do before next appt Planned Encounters Medical; 3 Month FU - On: 24-Nov-2018 14:00 [facility] Kalyn Forbes DO, DO, Kathleen Planned Procedures CT - Chest (IV Contrast Needed)By: On: 08-Sep-2018 Kalyn Hudson DO, DO, Kathleen PHYSICAL THERAPY ([id number])By: On: 07-Sep-2018 Intent Brenda Jones Radiology - Cervical SpineBy: On: 07-Sep-2018 Intent Brenda Jones Radiology - Shoulder - RightBy: On: 07-Sep-2018 Intent Brenda Jones Toradol Injection, 30 mg On: 07-Sep-2018 Intent ([id number])By: Brenda Jones Comments: toradol 30mg injection lot:[id number]: 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,HYPERBARIC 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 Spirometry ([id number])By: Evan CAMPBELL, On: 26-May-2018 Intent Kalyn Meyer DO Comments: really poor technique -- ELECTROCARDIOGRAM, COMPLETE (ECG) On: 17-Feb-2018 Intent ([id number])By: Kalyn Forbes DO Comments: nsr no acute chg Kalyn Forbes DO Spirometry ([id number])By: Evan CAMPBELL, On: 01-Jul-2017 Intent Kalyn Meyer DO Comments: mmild restirctive- asx- poor technique??-- didnt order TLC now since asx -- will follow ELECTROCARDIOGRAM, COMPLETE (ECG) On: 18-Mar-2017 Intent ([id number])By: Kalyn Forbes DO Comments: nsr no acute chg Kalyn Forbes DO Spirometry ([id number])By: Evan CAMPBELL, On: 30-Apr-2016 Intent KalynJaida Chun DOhleen Comments: mild obstruction -- enc to take advair more routinely EKG ([id number])By: Evan CAMPBELL, On: 04-Apr-2015 Intent Kalyn Evan DOJaidaKalyn Comments: nsr no acute chg IMMUNIZ ADMNIN, 1 VAC, SNGL/COMBO On: 05-Jul-2014 Intent ([id number])By: Kalyn Forbes DO Comments: lot [id number] 10/23/15location L armroute imgiven by - msmith VIS and/or ABN signed Kalyn Forbes DO PNEUM VAC ADLT/IMUMNOSPR, On: 05-Jul-2014 Intent SBC/INTRM ([id number])By: Kalyn Forbes DO, DO, Kalyn EKG ([id number])By: Evan CAMPBELL, On: 01-Apr-2014 Intent Kalyn Evan DOJaidaKalyn Comments: nsr no acute chg Eprescribed prescriptions On: 01-Oct-2013 Intent ([id number])By: Kalyn Forbes DO, DO, Kalyn Eprescribed prescriptions On: 29-Jun-2013 Intent ([id number])By: Brenda Arthur LPN Spirometry ([id number])By: Evan CAMPBELL, On: 30-Mar-2013 Intent KalynJaida Chun DOhleen Comments: normal EKG ([id number])By: Evan CAMPBELL, On: 30-Mar-2013 Intent Kalyn Evan DO Kalyn Comments: nsr no acute chg Eprescribed prescriptions On: 30-Mar-2013 Intent ([id number])By: Brenda Arthur LPN Eprescribed prescriptions On: 25-Dec-2012 Intent ([id number])By: Oksana Caldera Eprescribed prescriptions On: 04-Dec-2012 Intent ([id number])By: Melissa Romero Eprescribed prescriptions On: 17-Oct-2012 Intent ([id number])By: Brenda Arthur LPN Eprescribed prescriptions On: 11-Sep-2012 Intent ([id number])By: Amy Wilder LPN L Spirometry ([id number])By: Evan CAMPBELL, On: 21-Feb-2012 Intent Kalyn Meyer [...] Needed)By: Kalyn Forbes DO, DO, Kathleen Spirometry ([id number])By: Jerson, On: 30-Oct-2010 Intent Brenda ROBLEDO Comments: normal--using advair bid now improved Spirometry ([id number])By: Evan CAMPBELL, On: 15-Oct-2010 Intent Kalyn Meyer DO Comments: severe obstruction but poor tech-- asx and no use of rescue inhaler- but admits doesnt use advair daily 0-- will use bid for 2 weeks then fu to repeat spirometry and see -- 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 will try but lets see what bid EKG ([id number])By: Evan CAMPBELL, On: 20-Jul-2010 Intent Kalyn Meyer DO Comments: nsr no acute chg Spirometry ([id number])By: Evan CAMPBELL, On: 08-Oct-2009 Intent Kalyn Meyer DO Comments: obstruction but poor tch EKG ([id number])By: Wily ROBLEDO, On: 30-May-2009 Intent Maria Del Rosario Comments: nsr no acute changes THER/PROPH/DIAG IV INF, INIT On: 07-Mar-2009 Intent ([id number])By: CORBIN Kwok INFUSION, NORMAL SALINE SOLUTION , On: 07-Mar-2009 Intent 250 CC ([id number])By: CORBIN Kwok Rocephin Injection, 2 Gram On: 07-Mar-2009 Intent ([id number])By: CORBIN Kwok Comments: Lot #:[id number] date:mount given:2 grams Route:IV Site given:left hand Given by: erussellinfused without diff patient voiced no complaints INFUSION, NORMAL SALINE SOLUTION , On: 06-Mar-2009 Intent 1000 CC (Special Coverage Instructions Apply. See MCM: 2049) ([id number])By: Lavonne French CNP HYDRATION IV INFUSION, INIT On: 06-Mar-2009 Intent ([id number])By: Lavonne French CNP Rocephin Injection, 2 Gram On: 06-Mar-2009 Intent ([id number])By: Lavonne French CNP Spirometry ([id number])By: Evan CAMPBELL, On: 15-Nov-2008 Intent Kalyn Meyer DO Comments: done-AWpoor effort -- obstruciton -- asx not using resuce inhaler MRI - OtherBy: Kalyn Forbes DO On: 19-Aug-2008 Intent Kalyn Forbes DO Comments: Left Arm Inhaler Demo ([id number])By: Evan CAMPBELL, On: 10-Jul-2008 Intent Kalyn Meyer DO Comments: done km Aerosol Treatment ([id number])By: On: 10-Jul-2008 Intent Kalyn Forbes DO, DO, Comments: done with albuterol 0.83%better air exchange no wheeze Kalyn Solu- Medrol Injection, 125mg On: 10-Jul-2008 Intent ([id number])By: Kalyn Forbes DO Comments: 2ml given im lt hip lot oatd6 exp - Kalyn Forbes DO Inhaler Demo ([id number])By: Evan CAMPBELL, On: 08-Nov-2007 Intent Kalyn Meyer DO Solu- Medrol Injection, 125mg On: 08-Nov-2007 Intent ([id number])By: Kalyn Forbes DO Comments: 2ml given imk lt hip lot oajmt exp - Kalyn Forbes DO Aerosol Treatment ([id number])By: On: 08-Nov-2007 Intent Kalyn Forbes DO, DO, Comments: doneMORE AIR EXCHANGE AND NO JUNKY NOISE ANYMORE Kalyn Radiology - Chest- PA and LatBy: On: 08-Nov-2007 Intent Kalyn Forbes DO, DO, Kathleen Spirometry ([id number])By: Evan CAMPBELL, On: 08-Nov-2007 Intent Kalyn Meyer DO Comments: done kmNORMAL Radiology - Foot - LeftBy: Evan On: 03-Aug-2007 Intent Kalyn CAMPBELL DO, Kathleen Nuclear Stress Test/Stress On: 03-Apr-2007 Intent SPECT/TreadmillBy: Evan CAMPBELL, Comments: heart group to read Kalyn Meyer DO Echo CompleteBy: Evan CAMPBELL, On: 03-Apr-2007 Intent Kalyn Meyer DO Comments: heart group to read EKG ([id number])By: Evan CAMPBELL, On: 03-Apr-2007 Intent Kalyn Meyer DO Comments: nsr no acute ischemic changes SHAVE LESION, On: 31-Oct-2006 Intent FACE/LID/EAR/NOSE/LIP ([id number])By: Kalyn Forbes DO, DO, Kathleen Spirometry ([id number])By: Evan CAMPBELL, On: 19-Sep-2006 Intent Kalyn Meyer DO Comments: moderate obstruction--on no inhalers encouraged her to resume advair discus and will repeat in one month EKG ([id number])By: Evan CAMPBELL, On: 19-Sep-2006 Intent Kalyn Meyer [...] Advance Directives Name Dates Details Immunization Registry [place] - Effective on Effective: 25-Aug-201808/25/2018. Expiration date unspecified Encounters Annotation/Addendum On: 08-Sep-2018 16:29 Encounter Diagnosis: Mass [...] the patient is following up for inc aromnd All identified problems below, blood sugar issues, [...] intolerance: [place] [facility] [place] was [...] (238.9), ASTHMA, UNSPECIFIED, WITH ACUTE EXACERBATION (493.92), [facility] V72.31 [facility] Office [...]
--- OUTSIDE RECORDS SUMMARY | 2018-11-18 16:25 | XMS RPT_ITS | Continuity of Care Document ---
:1955 Author Organization [facility] Address [address] [facility] [address] [place] [address] Phone Care Team Providers Name Role Phone [...] Dysuria (R30.0, 788.1) Comments: cont to drink qp6qbqitml juice Status: Active Eustachian tube dysfunction (H69.80, [...] chemo at end of march and masci n they will resolve-- Status: Active Microalbuminuria (R80.9, [...] Quantity: 1 {Bottle} Refills: 0 Ordered:23-Apr-2015 Manolo CRAWFORDLavonne Start : 23-Apr-2015 Active FREESTYLE LITE TEST [...] End : 11-Jul-2015 Inactive Comments:std process DRISDOL, 87723EQOC (Oral Capsule) 1 Capsule qweek for 360 [...] End : 19-Nov-2011 Inactive Comments:ten VITAMIN D, 04421ISUF (Oral Capsule) 1 q week (04586 U) Inactive VITAMIN D3, 2000UNIT (Oral Capsule) 1 (one) Capsule Capsule qd for 120 days Refills: 0 Ordered:07-Feb-2014 Brenda Arthur LPN Start : 01-Oct-2013 End : 29-Jan-2014 Inactive VITAMIN D3, 67202ZQAO (Oral Capsule) 1 Capsule weekly for 0 [...] felt fine and no fever now-called to [facility] in [place] Status: Inactive as of 30-Mar-2013 Cellulitis of [...] Tonsillectomy Completed Date Value Details 04-Apr-2015 Spirometry (25096) Comments: restriction disease-technique dependent Result: 01-Apr-2014 Spirometry (49278) Comments: normal Result: Family History Unknown Family [...] smoker Vital Signs Date Test Result Details 08-Uyn-26884:00 Temperature 97 f Comments: Method: Temporal Pulse [...] kg/m2 Body Surface Area Calculated 1.92 m2 5-Sae-670999:35 Pulse 110 /min Comments: Pattern: Regular Respiration [...] 0.00 cm Results Date Description Value Details 33-Gvp-582683:29 LIPOPROTEIN, BLD, BY NMR Comments: PATIENT WAS FASTINGPERFORMED BY: [address] [id number] ([id number]) LP-IR Score 59 (Abnormal) Comments: INSULIN RESISTANCE MARKER <--Insulin Sensitive Insulin Resistant--> Percentile in Reference PopulationInsulin Resistance ScoreLP-IR Score Low 25th 50th 75th High <27 27 45 63 >63LP-IR Score is inaccurate if patient is non-fasting. .The LP-IR score is a laboratory developed i [facility] that has beenassociated with insulin resistance and [...] were developed and their performance characteristicsdetermined by [employer]. These assays have not been cleared by [...] High > 2000 :42 HgA1C , Office (07880) HgA1C , Office 7.5 % (Abnormal) Range: 4.6 - 7.1 :42 Blood Glucose , Office (62577) Blood Glucose , Office 157 (Normal) 77-Udr-252857:56 HgA1C , Office (75622) HgA1C , Office 6.7 % (Normal) Range: 4.6 - 7.1 :56 Blood Glucose , Office (87692) Blood Glucose , Office 150 (Normal) :42 HgA1C , Office (64324) HgA1C , Office 6.2 % (Normal) Range: 4.6 - 7.1 :19 HgA1C , Office (34531) HgA1C , Office 7.1 % (Normal) Range: 4.6 - 7.1 :19 Blood Glucose , Office (05385) Blood Glucose , Office 89 (Normal) :25 HgA1C , Office (42278) HgA1C , Office 6.9 % (Normal) Range: 4.6 - 7.1 :25 Blood Glucose , Office (73142) Blood Glucose , Office 112 (Normal) :14 HgA1C , Office (00915) HgA1C , Office 6.5 % (Normal) Range: 4.6 - 7.1 :14 Blood Glucose , Office (34285) Blood Glucose , Office 159 (Normal) :48 HgA1C , Office (36886) HgA1C , Office 6.4 % (Normal) Range: 4.6 - 7.1 :48 Blood Glucose , Office (00005) Blood Glucose , Office 91 (Normal) :39 Microscopic Examination Comments: PATIENT WAS FASTINGPERFORMED BY: [facility] Fbytmk7859 [facility] [id number] Bacteria Few (Normal) Mucus Threads Present (Normal) Epithelial Cells (non renal) 0-10 {/hpf} (Normal) Range: 0 - 10 RBC 0-2 {/hpf} (Normal) Range: 0 - 2 WBC 0-5 {/hpf} (Normal) Range: 0 - 5 :39 CALCIFIDIOL (30698) VIT D 25 Comments: PATIENT WAS FASTINGPERFORMED BY: [facility] Zrtmyh1982 [facility] [id number] Vitamin D, 25-Hydroxy 37.4 ng/mL (Normal) Range: 30.0-100.0 Comments: Vitamin D deficiency has been defined by the [place] of[place]icine and an Endocrine Society practice guideline as alevel of serum 25-OH vitamin D less than 20 ng/mL (1,2).The Endocrine Society went on to further define vitamin Dinsufficiency as a level between 21 and 29 ng/mL (2).1. IOM ([place] of [employer]). 2010. Dietary reference intakes for calcium and D. [place]: The National Academies Press.2. Elizabeth MF, Charles NC, Silke BATISTA, et al. Evaluation, treatment, and prevention of vitamin D deficiency: an Endocrine Society clinical practice guideline. JCEM. 2010; 96(7):1911-30. :39 TSH (46938) Comments: PATIENT WAS FASTINGPERFORMED BY: [facility] [facility] [id number] TSH 1.340 {uIU/mL} (Normal) Range: 0.450-4.500 :39 URINALYSIS, W/ MICRO (05021) Comments: PATIENT WAS FASTINGPERFORMED BY: [facility]6[address] [facility] [id number] Microscopic Examination See below: (Normal) Comments: Microscopic was indicated and was performed. Microscopic Examination MICRON (Normal) Comments: Microscopic follows if indicated. Nitrite, Urine Negative (Normal) Urobilinogen,Semi-Qn 0.2 mg/dL (Normal) Range: 0.2-1.0 Bilirubin Negative (Normal) Occult Blood Negative (Normal) Ketones Negative (Normal) Glucose Trace (Abnormal) Protein Negative (Normal) WBC Esterase Negative (Normal) Appearance Clear (Normal) Urine-Color Yellow (Normal) pH 6.0 (Normal) Range: 5.0-7.5 Specific [place] 1.021 (Normal) Range: 1.005-1.030 :39 MICROALBUMIN: CREATININE RATIO Comments: PATIENT WAS FASTINGPERFORMED BY: [facility]6[address] [facility] [id number] (85451) AND (02116) Microalb/Creat Ratio <3.1 {mg/g_creat} (Normal) Range: 0.0-30.0 Microalbumin, Urine <3.0 ug/mL (Normal) Creatinine, Urine 97.1 mg/dL (Normal) :39 METABOLIC PANEL, COMPREHENSIVE Comments: PATIENT WAS FASTINGPERFORMED BY: [facility]6[address] [facility] [id number] (49676) ALT (SGPT) 40 [iU]/L (Abnormal) Range: 0-32 [...] Glucose, Serum 151 mg/dL (Abnormal) Range: 65-99 26-Qjb-06787:39 LIPID PANEL (11760) Comments: PATIENT WAS FASTINGPERFORMED BY: [facility]CoTrinitas HospitalCungkh0195 [facility] [id number] LDL/HDL Ratio 1.9 {ratio_units} (Normal) Range: 0.0-3.2 [...] DIFF WBC Comments: PATIENT WAS FASTINGPERFORMED BY: [facility] [id number] Information: [id number] (18786) Immature Grans (Abs) 0.0 {x10E3/uL} (Normal) Range: [...] Range: 3.4-10.8 :56 Blood Glucose , Office (42206) Blood Glucose , Office 130 (Normal) :41 HgA1C , Office (16063) HgA1C , Office 6.8 % (Normal) Range: 4.6 - 7.1 40-Wel-686723:41 Blood Glucose , Office (27112) Blood Glucose , Office 92 (Normal) 90-Zfo-639454:03 LIPID PANEL (32574) Comments: PATIENT WAS FASTINGPERFORMED BY: [facility]6[address] [facility] [id number] Information: [id number] LDL/HDL Ratio 2.4 {ratio_units} (Normal) Range: 0.0-3.2 [...] Cholesterol, Total 203 mg/dL (Abnormal) Range: 100-199 18-Iym-845251:03 CALCIFIDIOL (71130) VIT D 25 Comments: PATIENT WAS FASTINGPERFORMED BY: GazemetrixTrinitas HospitalQhgzhf2856 [facility] [id number] Vitamin D, 25-Hydroxy 26.2 ng/mL (Abnormal) Range: 30.0-100.0 Comments: Vitamin D deficiency has been defined by the [place] of[place]icine and an Endocrine Society practice guideline as alevel of serum 25-OH vitamin D less than 20 ng/mL (1,2).The Endocrine Society went on to further define vitamin Dinsufficiency as a level between 21 and 29 ng/mL (2).1. IOM ([place] of [employer]). 2010. Dietary reference intakes for calcium and D. [place]: The National Academies Press.2. Elizabeth MF, Charles NC, Silke BATISTA, et al. Evaluation, treatment, and prevention of vitamin D deficiency: an Endocrine Society clinical practice guideline. JCEM. 2010; 96(7):1911-30. 91-Xfs-005520:11 Blood Glucose , Office (31221) Blood Glucose , Office 118 (Normal) :10 HgA1C , Office (79077) HgA1C , Office 6.4 % (Normal) Range: 4.6 - 7.1 :02 Blood Glucose , Office (64938) Blood Glucose , Office 103 (Normal) :02 HgA1C , Office (01160) HgA1C , Office 6.7 % (Normal) Range: 4.6 - 7.1 :25 HgA1C , Office (71862) HgA1C , Office 6.2 % (Normal) Range: 4.6 - 7.1 :25 Blood Glucose , Office (43959) Blood Glucose , Office 135 (Normal) :27 Blood Glucose , Office (50883) Blood Glucose , Office 73 (Normal) :27 HgA1C , Office (64290) HgA1C , Office 5.9 % (Normal) Range: 4.6 - 7.1 :46 HgA1C , Office (21543) HgA1C , Office 5.8 % (Normal) Range: 4.6 - 7.1 :46 Blood Glucose , Office (63958) Blood Glucose , Office 118 (Normal) :58 HgA1C , Office (59580) HgA1C , Office 5.9 % (Normal) Range: 4.6 - 7.1 :58 Blood Glucose , Office (39852) Blood Glucose , Office 75 (Normal) :58 HgA1C , Office (98769) HgA1C , Office 5.6 % (Normal) Range: 4.6 - 7.1 :58 Blood Glucose , Office (09288) Blood Glucose , Office 99 (Normal) :06 [...] 7-18 GLU 100 mg/dL (Normal) Range: 70-110 12-Cax-793639:06 LIPID VLDL 20 mg/dL (Normal) Range: 5-40 [...] CHOL 207 mg/dL (Abnormal) Comments: <200 mg/dL Fosfoinjl392-450 mg/dL Borderline>240 mg/dL High Risk 46-Zkt-524935:06 MIACRE MIALB 10.6 mg/L (Normal) tMICROCREAT 8.1 {mg/g_CRE} (Normal) CREU 130.8 mg/dL (Normal) 43-Arn-596635:06 TSH 1.00 {uIU/mL} (Normal) Range: 0.358-3.74 08-Wkc-360592:06 VITD 50.4 mg/mL (Normal) Comments: Vitamin D 25(OH) Status RangeDeficiency <20 ng/mL (50nmol/L)Insuffciency 20 - 30 ng/mL (50 - 75 nmol/L)Sufficiency 30 - 100 ng/mL (75 - 250 nmol/L)Toxicity >100 ng/mL (>250 nmol/L) 4-Wes-680633:26 URINE KASHIF CULTURE-IDENTIFICATN Comments: PATIENT NOT FASTINGPERFORMED BY: [facility] Uqsfvl3123 [facility] [id number] Information: [id number] (86697) Result 1 BETAGB (Abnormal) Comments: Beta hemolytic [...] (CLSI 2011) Urine Final report (Abnormal) Culture,Comprehensive 7-Ahn-710740:07 Urinalysis, Office (74131) UA - LEUKOCYTE ESTERASE Small (Normal) UA - NITRITE Negative (Normal) URINE UROBILINGN ALEX TIMED Normal mg/dL (Normal) UA - PROTEIN Negative mg/dL (Normal) UA - PH 5 (Abnormal) UA - BLOOD Negative (Normal) UA - SPECIFIC GRAVITY 1.010 (Normal) UA - KETONES Negative mg/dL (Normal) UA - BILIRUBIN Negative (Normal) UA - GLUCOSE Negative (Normal) :06 HgA1C , Office (26162) HgA1C , Office 7.0 % (Normal) Range: 4.6 - 7.1 :06 Blood Glucose , Office (72614) Blood Glucose , Office 82 (Normal) :38 HgA1C , Office (05440) HgA1C , Office 6.4 % (Normal) Range: 4.6 - 7.1 :38 Blood Glucose , Office (08620) Blood Glucose , Office 106 (Normal) 97-Unw-055571:47 CBCD ANC 2.3 {X10_3/uL} (Normal) Range: 2.0-7.7 [...] 4.2-5.4 WBC 4.4 K/mm3 (Normal) Range: 4.4-11.0 62-Bjl-528780:47 CMP GAP 6 (Normal) Range: 5-15 CO2 [...] 126 mg/dLsuggests DIABETES MELLITUS per A.D.A. criteria. 34-Wgz-086744:47 LIPID LDL 121 mg/dL (Normal) Range: 0-130 [...] CHOL 198 mg/dL (Normal) Comments: <200 mg/dL Lnabwdydi041-697 mg/dL Borderline>240 mg/dL High Risk 03-Fon-235042:47 MIACRE tMICROCREAT 5.7 {mg/g_CRE} (Normal) MIALB 5.0 mg/L (Normal) CREU 87.7 mg/dL (Normal) :47 TSH 0.62 {uIU/mL} (Normal) Range: 0.358-3.74 20-Umw-908582:47 UAC Comments: How was Urine Obtained? CLEAN [...] ng/mL (>250 nmol/L) :35 HgA1C , Office (03394) HgA1C , Office 6.1 % (Normal) Range: 4.6 - 7.1 :35 Blood Glucose , Office (59414) Blood Glucose , Office 102 (Normal) :24 HgA1C , Office (83624) HgA1C , Office 5.9 % (Normal) Range: 4.6 - 7.1 :24 Blood Glucose , Office (30961) Blood Glucose , Office 375 (Normal) :13 [...] 4.2-5.4 WBC 5.5 {k/mm3} (Normal) Range: 4.4-11.0 26-Dde-022189:13 CMP GAP 6 (Normal) Range: 5-15 CO2 [...] 126 mg/dLsuggests DIABETES MELLITUS per A.D.A. criteria. 96-Cfr-754626:13 LIPID VLDL 40 mg/dL (Normal) Range: 5-40 [...] CHOL 231 mg/dL (Abnormal) Comments: <200 mg/dL Ohbpmrvyt459-710 mg/dL Borderline>240 mg/dL High Risk 74-Kjv-797264:13 MIACRE tMICROCREAT 7.0 {mg/g_CRE} (Normal) MIALB 9.2 [...] ng/mL (250 nmol/L) :40 HgA1C , Office (81684) HgA1C , Office 7.1 % (Normal) Range: 4.6 - 7.1 :40 Blood Glucose , Office (51862) Blood Glucose , Office 123 (Normal) :05 Blood Glucose , Office (09167) Blood Glucose , Office 176 (Normal) :43 HEPATIC FUNCTION PANEL Comments: PATIENT NOT FASTINGPERFORMED BY: [facility]CoTrinitas HospitalYvltbk3486 [facility] [id number] Information: [id number] (99842) ALT (SGPT) 146 [iU]/L (Abnormal) Range: 0-32 AST (SGOT) 101 [iU]/L (Abnormal) Range: 0-40 Alkaline Phosphatase, S 94 [iU]/L (Normal) Range: 25-150 Bilirubin, Direct 0.20 mg/dL (Normal) Range: 0.00-0.40 Albumin, Serum 4.5 g/dL (Normal) Range: 3.5-5.5 Bilirubin, Total 0.6 mg/dL (Normal) Range: 0.0-1.2 Protein, Total, Serum 7.1 g/dL (Normal) Range: 6.0-8.5 :14 Blood Glucose , Office (87360) Blood Glucose , Office 193 (Normal) :11 MICROALBUMIN: CREATININE RATIO Comments: PATIENT WAS FASTINGPERFORMED BY: Intent HQTrinitas HospitalUewids3572 [facility] [id number] (67534) AND (70702) Microalb/Creat Ratio 3.8 {mg/g_creat} (Normal) Range: 0.0-30.0 Microalbumin, Urine 6.3 ug/mL (Normal) Range: 0.0-17.0 Creatinine, Urine 167.6 mg/dL (Normal) Range: 15.0-278.0 :11 METABOLIC PANEL, COMPREHENSIVE Comments: PATIENT WAS FASTINGPERFORMED BY: [employer] LabCoTrinitas HospitalHktliw7330 [facility] [id number] (33294) ALT (SGPT) 59 [iU]/L (Abnormal) Range: 0-32 [...] Glucose, Serum 177 mg/dL (Abnormal) Range: 65-99 66-Ngv-60376:11 CBC WITH MANUAL DIFF Comments: PATIENT WAS FASTINGPERFORMED BY: [facility] Kxduug3254 [facility] [id number] Information: [id number] (06260) Immature Grans (Abs) 0.0 {x10E3/uL} (Normal) Range: [...] {x10E3/uL} (Abnormal) Range: 4.0-10.5 :11 LIPID PANEL (32731) Comments: PATIENT WAS FASTINGPERFORMED BY: [employer]6370 [facility] [id number] LDL/HDL Ratio 2.9 {ratio_units} (Normal) Range: 0.0-3.2 LDL Cholesterol Calc 153 mg/dL (Abnormal) Range: 0-99 VLDL Cholesterol Josep 32 mg/dL (Normal) Range: 5-40 HDL Cholesterol 53 mg/dL (Normal) Comments: According to ATP-III Guidelines, HDL-C >59 mg/dL is considered anegative risk factor for CHD. Triglycerides 162 mg/dL (Abnormal) Range: 0-149 Cholesterol, Total 238 mg/dL (Abnormal) Range: 100-199 :11 Vitamin D Hydroxy (56153) Comments: PATIENT WAS FASTINGPERFORMED BY: [employer] Uacpin6823 [facility] [id number] Vitamin D, 25-Hydroxy 63.5 ng/mL (Normal) Range: 30.0-100.0 Comments: Vitamin D deficiency has been defined by the [place] of[place]icine and an Endocrine Society practice guideline as alevel of serum 25-OH vitamin D less than 20 ng/mL (1,2).The Endocrine Society went on to further define vitamin Dinsufficiency as a level between 21 and 29 ng/mL (2).1. IOM ([place] [employer]). 2010. Dietary reference intakes for calcium and D. [place]: The National Academies Press.2. Elizabeth HOWE, Charles LUNDY, Silke BATISTA, et al. Evaluation, treatment, and prevention of vitamin D deficiency: an Endocrine Society clinical practice guideline. JCEM. 2010; 96(7):1911-30. :10 HgA1C , Office (18355) HgA1C , Office 5.8 % (Normal) Range: 4.6 - 7.1 :10 Blood Glucose , Office (35247) Blood Glucose , Office 194 (Normal) Comments: fasting :15 HgA1C , Office (65285) HgA1C , Office 5.7 % (Normal) Range: 4.6 - 7.1 :15 Blood Glucose , Office (98420) Blood Glucose , Office 178 (Normal) :15 Vitamin D Hydroxy (80132) Comments: PATIENT NOT FASTINGPERFORMED BY: [facility] [employer] [facility] [employer] Nqepoy1856 [facility] [id number] Information: [id number] Vitamin D, 25-Hydroxy 60.0 ng/mL (Normal) Range: 30.0-100.0 Comments: Vitamin D deficiency has been defined by the [place] of[place] and an Endocrine Society practice guideline as alevel of serum 25-OH vitamin D less than 20 ng/mL (1,2).The Endocrine Society went on to further define vitamin Dinsufficiency as a level between 21 and 29 ng/mL (2).1. IOM ([place] [employer]). 2010. Dietary reference intakes for calcium and D. [place]: The National Academies Press.2. Elizabeth MF, Charles LUNDY, Silke BATISTA et al. Evaluation, treatment, and prevention of vitamin D deficiency: an Endocrine Society clinical practice guideline. JCEM. 2010; 96(7):1911-30. :54 METABOLIC PANEL, Comments: PATIENT WAS FASTINGPERFORMED BY: [facility]CoTrinit[facility] HospitalKsagzy4215 [facility] [id number] Information: [id number] COMPREHENSIVE (99561) ALT (SGPT) 24 [iU]/L (Normal) Range: 0-40 [...] Glucose, Serum 105 mg/dL (Abnormal) Range: 65-99 71-Zdy-844361:54 LIPID PANEL (42407) Comments: PATIENT WAS FASTINGPERFORMED BY: [facility] [id number] LDL/HDL Ratio 2.5 {ratio_units} (Normal) Range: 0.0-3.2 LDL Cholesterol Calc 144 mg/dL (Abnormal) Range: 0-99 VLDL Cholesterol Josep 28 mg/dL (Normal) Range: 5-40 HDL Cholesterol 58 mg/dL (Normal) Comments: According to ATP-III Guidelines, HDL-C >59 mg/dL is considered anegative risk factor for CHD. Triglycerides 141 mg/dL (Normal) Range: 0-149 Cholesterol, Total 230 mg/dL (Abnormal) Range: 100-199 :54 Vitamin D Hydroxy (66548) Comments: PATIENT WAS FASTINGPERFORMED BY: [facility]the [facility] [place] [id number] Vitamin D, 25-Hydroxy 28.0 ng/mL (Abnormal) Range: 30.0-100.0 Comments: Vitamin D deficiency has been defined by the [place] of[place]icine and an Endocrine Society practice guideline as alevel of serum 25-OH vitamin D less than 20 ng/mL (1,2).The Endocrine Society went on to further define vitamin Dinsufficiency as a level between 21 and 29 ng/mL (2).1. IOM ([place] [employer]). 2010. Dietary reference intakes for calcium and D. [place]: The National AcademStudent [employer].2. Elizabeth MF, Charles LUNDY, Silke BATISTA, et al. Evaluation, treatment, and prevention of vitamin D deficiency: an Endocrine Society clinical practice guideline. JCEM. 2010; 96(7):1911-30. 85-Ykl-035761:35 HgA1C , Office (50792) HgA1C , Office 5.6 % (Normal) Range: 4.6 - 7.1 17-Jfg-472636:35 Blood Glucose , Office (18100) Blood Glucose , Office 129 (Normal) 37-Sbi-62387:45 CBC With Differential/Platelet Comments: Test(s) WBC; Platelets; Neutrophils (Absolute) called to YUNIER Jenkins on 11/29/2011 at 14:08 ESTPATIENT WAS FASTINGPERFORMED BY: [facility] Zmrpyf0162 [facility] [id number] Hematology Comments: Note: (Normal) Comments: Manual differential [...] 11/29/2011 at 14:08 ESTPATIENT WAS FASTINGPERFORMED BY: [employer] Rbbphg5267 [facility] [id number] Blasts/blast like cells 21 % (Abnormal) Range: 0 - 0 :45 Lipid Panel With LDL/HDL Comments: Test(s) WBC; Platelets; Neutrophils (Absolute) called to YUNIER on 11/29/2011 at 14:08 ESTPATIENT WAS FASTINGPERFORMED BY: [employer]6370 [facility] [id number] Ratio LDL/HDL Ratio 1.2 {ratio_units} (Normal) Range: [...] 11/29/2011 at 14:08 ESTPATIENT WAS FASTINGPERFORMED BY: [facility]6370 [facility] [id number] Comments/Recommendations Comment: (Normal) Comments: 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 Suggest bone marrowevaluation and flow cytometry and cytogenetics. Pathologist Comment: (Normal) Comments: This case was reviewed by Lila Kingsley M.D. PLTs Comment: (Normal) Comments: Thrombocytopenia.Few large platelets were observed. RBC Comment: (Normal) Comments: Decreased.Slight anisocytosis.Poikilocytosis.Rare nucleated RBC seen. WBC Comment: (Normal) Comments: Leukopenia. :54 HgA1C , Office (09551) HgA1C , Office 6.6 % (Normal) Range: 4.6 - 7.1 :54 Blood Glucose , Office (91930) Blood Glucose , 197 (Normal) Office Vitamin D, 23.4 ng/mL Comments: Test(s) WBC; Neutrophils (Absolute) called to Dr Wilson on 11/18/2011 at 05:44 ESTPATIENT NOT FASTINGPERFORMED BY: [facility]6370 [facility] [id number] 25-Hydroxy (Abnormal) Range: 30.0-100.0 Comments: Vitamin D deficiency has been defined by the [place] ofF[facility] Hospitalcine and an Endocrine Society practice guideline as alevel of serum 25-OH vitamin D less than 20 ng/mL (1,2).The Endocrine Society went on to further define vitamin Dinsufficiency as a level between 21 and 29 ng/mL (2).1. IOM ([place] of [employer]). 2010. Dietary reference intakes for [...] 11/18/2011 at 05:44 ESTPATIENT NOT FASTINGPERFORMED BY: [facility]6370 [facility] [id number] EACH (87150) Hematology Comments: Note: (Normal) Comments: Verified by [...] 3.80-5.10 WBC 1.2 {x10E3/uL} (Abnormal) Range: 4.0-10.5 43-Jpu-668861:05 EBV Panel (09920) Comments: Test(s) WBC; Neutrophils (Absolute) called to Dr Wilson on 11/18/2011 at 05:44 ESTPATIENT NOT FASTINGPERFORMED BY: LabCoTrinitas HospitalOfnlyh5600 [facility] [id number] Interpretation: SPRCS (Normal) Comments: EBV Interpretation Chart [...] <0.9 Equivocal 0.9 - 1.0 Positive >1.0 42-Lzs-67692:55 CBCMD PATHR Reviewed (Normal) Comments: Leukopenia and [...] TSH 0.80 {uIU/mL} (Normal) Range: 0.358-3.74 :55 [facility] UMUC 1+ {/hpf} (Normal) UBAC 0 [...] D deficiency has been defined by the [place] of[place]icine and an Endocrine Society practice guideline as alevel of serum 25-OH vitamin D less than 20 ng/mL (1,2).The Endocrine Society went on to further define vitamin Dinsufficiency as a level between 21 and 29 ng/mL (2).1. IOM ([place] [employer]). 2010. Dietary reference intakes for calcium and D. [place]: The National Academies Press.2. Elizabeth MF, Charles NC, Silke BATISTA, et al. Evaluation, treatment, and prevention of vitamin D deficiency: an Endocrine Society clinical practice guideline. JCEM. 2010; 96(7): 1911-30. .Effective November 01, 2011, Vitamin D, 25 Hydroxy specimen requirements will change to serum only.Performed at: - Lab[address] [id number] Director: Lila Kingsley MD, Phone: [phone] :[phone] GLU 158 mg/dL (Abnormal) Comments: PATIENT [...] above. Dictated on 05/31/111617 by Gilberto Street MDranscribed on 06/01/111702 by ITS IMPORTSign by Mitch Street MD on 06/01/111702 Sign by: Mitch Street MD 97-Nmh-862427:20 HgA1C , Office (84399) HgA1C , Office 6.7 % (Normal) Range: 4.6 - 7.1 :20 Blood Glucose , Office (16048) Blood Glucose , Office 175 (Normal) :00 LIVER D BILI 0.11 mg/dL (Normal) Range: 0.00-0.30 T BILI 0.40 mg/dL (Normal) Range: 0.00-1.00 ALT 40 U/L (Normal) Range: 12-78 ALK P 89 U/L (Normal) Range: 50-136 AST 19 U/L (Normal) Range: 15-37 ALB 3.6 g/dL (Normal) Range: 3.4-5.0 T PROT 6.8 g/dL (Normal) Range: 6.4-8.2 6-Nnq-447762:00 BMP GAP 9 (Normal) Range: 5-15 CO2 [...] mg/dL suggests DIABETES MELLITUS per A.D.A. criteria. 5-Wgt-238100:22 HgA1C , Office (98817) HgA1C , Office 6.7 % (Normal) Range: 4.6 - 7.1 :22 Blood Glucose , Office (02981) Blood Glucose , Office 205 (Normal) 42-Fbm-405698:00 CHEST WITH CONTRAST Radiology Report See Note [...] JAMARI HARRIS MD :47 HgA1C , Office (23325) HgA1C , Office 6.8 % (Normal) Range: 4.6 - 7.1 :47 Blood Glucose , Office (38617) Blood Glucose , Office 175 (Normal) :54 [...] mg/dL suggests DIABETES MELLITUS per A.D.A. criteria. 84-Hro-06733:54 COMPLETE UA BACTERIA 1+ {/hpf} (Normal) MUCUS, [...] 0.77 {uIU/mL} (Normal) Range: 0.358-3.74 :54 VITD 44142 39.5 pg/mL (Normal) Range: 10.0-75.0 Comments: Performed at: [facility] Lab[address] [id number] Director: Madi Chandler MD, Phone: [phone] HgA1C , Office (15507) HgA1C , Office 6.8 % (Normal) Range: 4.6 - 7.1 :52 Blood Glucose , Office (15560) Blood Glucose , Office 117 (Normal) :35 [...] mg/dL High Risk :55 HgA1C , Office (48036) Comments: done km HgA1C , Office 6.3 % (Normal) Range: 4.6 - 7.1 :55 Blood Glucose , Office (92978) Comments: done km Blood Glucose , Office 111 (Normal) :10 HgA1C , Office (44179) Comments: done km HgA1C , Office 6.6 % (Normal) Range: 4.6 - 7.1 87-Ave-757993:10 Blood Glucose , Office (00957) Comments: done km Blood Glucose , Office 108 (Normal) 8-Bny-711039:00 CBCD,SMEAR DIFF ABSOLUTE NEUT 2.6 3/uL (Normal) [...] 4.2-5.4 WBC 5.5 K/mm3 (Normal) Range: 4.4-11.0 6-Aav-844232:00 COMP METABOLIC ALK P 94 U/L (Normal) [...] <126 mg/dLsuggests IMPAIRED HOMEOSTASIS per A.D.A. criteria. 6-Ssl-082393:00 LIPID CHOL 129 mg/dL (Normal) Comments: <200 mg/dL Mpjorxzar413-582 mg/dL Borderline>240 mg/dL High Risk HDL 46 mg/dL (Normal) Comments: Reference RangeHDL <40 mg/dL Low HDL CholesterolHDL >or= 60 mg/dL High HDL Cholesterol LDL 69 mg/dL (Normal) Range: 0-130 TRIG 69 mg/dL (Normal) Comments: Serum Triglycerides Reference IntervalNormal <150 mg/dLBorderline high 150 - 199 mg/dLHigh 200 - 499 mg/ dLVery High > or = 500 mg/dL VLDL 14 mg/dL (Normal) Range: 5-40 0-Bpw-572647:00 MICROALB:CRE UR MALB:CREAT 3.4 {mg/g_CRE} (Normal) MICROALBUMIN,UR 6.9 mg/L (Normal) UR CREAT 199.6 mg/dL (Normal) 6-Jlr-276309:00 NMR LIPOPROFILE HDL SIZE 8.5 nm (Abnormal) [...] DIABETES RISK MARKERS<--Insulin Sensitive Insulin Resistant-->Percentile in [place] VLDL-P Low 25th 50th 75th High<0.9 0.9 [...] 27 45 63 >63 Performed at: [facility] [address] [place], [place] [id number] Director: Kirit Venegas PhD SMALL LDL-P 889 [...] TOT 142 mg/dL (Normal) LIPIDS . (Normal) 1-Qzi-346456:00 TSH 0.79 {uIU/mL} (Normal) Range: 0.358-3.74 :44 HgA1C , Office (27261) Comments: done km HgA1C , Office 7.3 % (Abnormal) Range: 4.6 - 7.1 :44 Blood Glucose , Office (27246) Comments: done km Blood Glucose , Office 153 (Normal) :59 Blood Glucose , Office (74942) Blood Glucose , Office 102 (Normal) :59 HgA1C , Office (50598) HgA1C , Office 6.5 % (Normal) Range: [...] (Normal) Range: 0.358-3.74 :56 HgA1C , Office (37714) HgA1C , Office 6.4 % (Normal) Range: 4.6 - 7.1 :56 Blood Glucose , Office (87589) Blood Glucose , Office 235 (Normal) :55 HgA1C , Office (48392) Comments: done km HgA1C , Office 6.7 % (Normal) Range: 4.6 - 7.1 :55 Blood Glucose , Office (26028) Comments: done Blood Glucose , Office 123 (Normal) :54 UPPER EXT/NO JT W/O CONTRAST Radiology Report See Note (Normal) Comments: Exam Number: [id number] MRI LEFT UPPER EXTREMITY ON THE OPEN [...] JAMARI TRAN M.D. :02 HgA1C , Office (32001) HgA1C , Office 6.0 % (Normal) Range: 4.6 - 7.1 :02 Blood Glucose , Office (31926) Blood Glucose , Office 151 (Normal) :33 HgA1C , Office (83409) HgA1C , Office 6.3 % (Normal) Range: 4.6 - 7.1 Comments: :33 Blood Glucose , Office (71120) Blood Glucose , Office 136 (Normal) Comments: [...] (Normal) Range: 0.34-4.82 :58 HgA1C , Office (82284) HgA1C , Office 5.9 % (Normal) Range: 4.6 - 7.1 Comments: :00 LIVER ALB 4.2 g/dL (Normal) Range: [...] Report See Note (Normal) Comments: Exam Number: [id number] PA AND LATERAL CHEST HISTORY Being done for cough. Cardiac configuration is normal. No acute infiltrate, effusion, orpneumothorax is identified. IMPRESSIONNo acu te change no marion in the lungs. Reported By: LESLIE VOSS M.D. :19 HgA1C , Office (85751) Comments: done km HgA1C , Office 6.0 % (Normal) Range: 4.6 - 7.1 :19 Blood Glucose , Office (02718) Comments: done km Blood Glucose , Office 93 (Normal) 0-Sys-671747:12 FOOT,MIN 3 VIEWS Radiology Report See Note (Normal) Comments: Exam Number: [id number] LEFT FOOT, 3 VIEWS HISTORYPain. TECHNIQUEAP, lateral, [...] metatarsal head. Reported By: LESLIE VOSS M.D. 1-Cjd-924395:11 LIPID CHOL 205 mg/dL (Abnormal) Comments: <200 [...] mg/dL VLDL 15 mg/dL (Normal) Range: 5-40 5-Qhu-743334:15 HgA1C , Office (45518) Comments: HgA1C , Office 6.0 % (Normal) Range: 4.6 - 7.1 :15 Blood Glucose , Office (70846) Comments: Blood Glucose , Office 90 (Normal) :10 LIPID PANEL (51632) Comments: do in 3mo; PATIENT WAS FASTINGClinical Information: ADD DRAW FEE [id number] ADD [id number] [id number] PERFORMED BY: [id number] [id number] Cholesterol, Total 227 mg/dL (Abnormal) Range: 100-199 Comment SPRCS (Normal) Comments: If initial LDL-cholesterol result is >100 mg/dL, assess forrisk factors. HDL Cholesterol 46 mg/dL (Normal) Range: 40-59 LDL Cholesterol Calc 165 mg/dL (Abnormal) Range: 0-99 LDL/HDL Ratio 3.6 {ratio_units} (Abnormal) Range: 0.0-3.2 Triglycerides 79 mg/dL (Normal) Range: 0-149 VLDL Cholesterol Josep 16 mg/dL (Normal) Range: 5-40 :55 Blood Glucose , Office (17298) Comments: done Blood Glucose , Office 123 (Normal) :55 HgA1C , Office (07472) Comments: done HgA1C , Office 7.7 % (Abnormal) Range: 4.6 - 7.1 :55 GLUP 343 mg/dL (Abnormal) Comments: GLU,2HPPG 75gm GLUC PPG GLUP from [id number]. Comments: Glucose result greater than or equal [...] (Normal) Range: 0.2 - 1.0 :44 TYESHA-D 026905 TYESHA-DIRECT 57 U/mL (Normal) Range: 0-99 Comments: [...] {IU/mL} (Normal) Range: 0.0-13.9 Comments: Performed At: [address] [id number] :44 TSH 0.76 {uIU/mL} (Normal) Range: 0.34-4.82 :46 MYOCARD PERF SPECT REST/STRESS Radiology Report See Note (Normal) Comments: Exam Number: [id number] MYOCARDIAL PERFUSION SCAN 13.8 millicuries of Tc99m Sestamibi was injected at rest. The patientthen exercised according to the regular Aguilar protocol for 6 minutesand 5 seconds a ttaining 97% of maximum predicted heart rate and workload of 7.1 METs. At peak exercise, 36.0 millicuries of Nz56bYrlollaon was injected. Stress images were then obtained. [...] LEUKEMIA, PLASMA CELL IN REMISSION : Reviewed Hedis Coordinator Letter Indication: LEUKEMIA, PLASMA CELL IN REMISSION [...] LEUKEMIA, PLASMA CELL IN REMISSION : Reviewed Hedis Coordinator Letter Indication: LEUKEMIA, PLASMA CELL IN REMISSION [...] uncontrolled : Follow up -- at march app Indication: Diabetes type 2, uncontrolled Diabetes type [...] LEUKEMIA, PLASMA CELL IN REMISSION : Reviewed Hedis Coordinator Letter Indication: LEUKEMIA, PLASMA CELL IN REMISSION Asthma : Continue Current Prescription(s) Indication: Asthma Mixed hyperlipidemia : Cholesterol mgmt Indication: Mixed hyperlipidemia Controlled diabetes mellitus type II without complication : Diabetes Mellitus: Type 2 *: diabetes mellitus Indication: Controlled diabetes mellitus type II without complication LEUKEMIA, PLASMA CELL IN REMISSION : Reviewed Hedis Coordinator Letter Indication: LEUKEMIA, PLASMA CELL IN REMISSION [...] and Vomiting Nausea and Vomiting : Reviewed Hedis Coordinator Letter Indication: Nausea and Vomiting Nausea and [...] LEUKEMIA, PLASMA CELL IN REMISSION : Reviewed Hedis Coordinator Letter Indication: LEUKEMIA, PLASMA CELL IN REMISSION Vitamin D deficiency, unspecified : Reviewed Lab Indication: Vitamin D deficiency, unspecified Controlled diabetes mellitus type II without complication : Diabetes Mellitus: Type 2 *: high blood glucose Indication: Controlled diabetes mellitus type II without complication Controlled diabetes mellitus type II without complication : Reviewed Hedis Coordinator Letter Indication: Controlled diabetes mellitus type II [...] Hyperlipidemia Planned Observations LIPOPROTEIN, BLD, BY NMR (39659)Indication: Mixed hyperlipidemia On: :54 Request CALCIFIDIOL (39411) VIT D 25Indication: Vitamin D deficiency, unspecified On: :54 Request TSH (79510)Indication: Controlled diabetes mellitus type II without complication On: :53 Request URINALYSIS, W/ MICRO (03830)Indication: Controlled diabetes mellitus type II without complication On: :53 Request MICROALBUMIN: CREATININE RATIO (00688) AND (43656)Indication: Controlled diabetes mellitus type II without complication On: :53 Request METABOLIC PANEL, COMPREHENSIVE (04692)Indication: Controlled diabetes mellitus type II without complication On: :53 Request CBC W/AUTO DIFF WBC (31448)Indication: Controlled diabetes mellitus type II without complication On: :53 Request HGB A1C (80183)Indication: Diabetes type 2, uncontrolled On: 11-Oha-506386:41 Request MICROALBUMIN: CREATININE RATIO (73232) AND (30021)Indication: Hypertension, benign On: 92-Bjq-313059:03 Request URINALYSIS (99231)Indication: Hypertension, benign On: 67-Rux-851805:03 Request Metabolic Panel, Comprehensive (61135)Indication: Hypertension, benign On: 70-Qqy-955851:03 Request TSH (38505)Indication: Hypertension, benign On: 64-Ouu-737431:03 Request CALCIFEDIOL (62190)Indication: Vitamin D deficiency, unspecified On: 74-Ndb-223980:03 Request CBC WITH MANUAL DIFF ([id number])Indication: Mixed hyperlipidemia On: 93-Ouv-054506:02 Request Lipid Panel (09392)Indication: Mixed hyperlipidemia On: 96-Abg-677638:02 Request HGB A1C (55616)Indication: Diabetes type 2, uncontrolled On: 42-Kgw-381755:02 Request CALCIFEDIOL (48569)Indication: Vitamin D deficiency, unspecified On: 9-Mlm-383802:59 Request HGB A1C (96058)Indication: Controlled diabetes mellitus type II without complication On: 8-Wzr-640531:42 Request CALCIFIDIOL (44760) VIT D 25Indication: Vitamin D deficiency, unspecified On: :32 Request TSH (43932)Indication: Controlled diabetes mellitus type II without complication On: :32 Request URINALYSIS, W/ MICRO (41603)Indication: Controlled diabetes mellitus type II without complication On: :32 Request MICROALBUMIN: CREATININE RATIO (52641) AND (96116)Indication: Controlled diabetes mellitus type II without complication On: :32 Request METABOLIC PANEL, COMPREHENSIVE (12244)Indication: Controlled diabetes mellitus type II without complication On: :32 Request LIPID PANEL (21361)Indication: Controlled diabetes mellitus type II without complication On: :32 Request CBC W/AUTO DIFF WBC (80809)Indication: Controlled diabetes mellitus type II without complication On: :32 Request TSH (42615)Indication: Mixed hyperlipidemia On: :55 Request URINALYSIS, W/ MICRO (82933)Indication: Controlled diabetes mellitus type II without complication On: :55 Request MICROALBUMIN: CREATININE RATIO (76634) AND (41594)Indication: Controlled diabetes mellitus type II without complication On: :55 Request CBC W/AUTO DIFF WBC (72249)Indication: Controlled diabetes mellitus type II without complication On: :52 Request METABOLIC PANEL, COMPREHENSIVE (30043)Indication: Controlled diabetes mellitus type II without complication On: :52 Request CALCIFIDIOL (24566) VIT D 25Indication: Vitamin D deficiency, unspecified On: :52 Request LIPID PANEL (52444)Indication: Mixed hyperlipidemia On: :52 Request CALCIFIDIOL (62612) VIT D 25Indication: Vitamin D deficiency, unspecified On: :32 Request TSH (92304)Indication: Controlled diabetes mellitus type II without complication On: : Request URINALYSIS, W/ MICRO (28412)Indication: Controlled diabetes mellitus type II without complication On: :32 Request MICROALBUMIN: CREATININE RATIO (39442) AND (77055)Indication: Controlled diabetes mellitus type II without complication On: :32 Request METABOLIC PANEL, COMPREHENSIVE (09006)Indication: Controlled diabetes mellitus type II without complication On: : Request CBC W/AUTO DIFF WBC (84399)Indication: Controlled diabetes mellitus type II without complication On: : Request TSH (79015)Indication: Diabetes type 2, uncontrolled On: :28 Request URINALYSIS, W/ MICRO (32389)Indication: Diabetes type 2, uncontrolled On: :28 Request MICROALBUMIN: CREATININE RATIO (81863) AND (63373)Indication: Diabetes type 2, uncontrolled On: :28 Request METABOLIC PANEL, COMPREHENSIVE (26238)Indication: Diabetes type 2, uncontrolled On: :27 Request LIPID PANEL (91235)Indication: Mixed hyperlipidemia On: :27 Request CBC W/AUTO DIFF WBC (39093)Indication: Diabetes type 2, uncontrolled On: :27 Request CALCIFIDIOL (80782) VIT D 25Indication: Vitamin D deficiency, unspecified On: :27 Request Vitamin D Hydroxy (59816)Indication: Vitamin D deficiency, unspecified On: 6-Iwb-199641:46 Request TSH (37542)Indication: Controlled diabetes mellitus type II without complication On: :17 Request URINALYSIS, W/ MICRO (44732)Indication: Hypertension On: :17 Request MICROALBUMIN: CREATININE RATIO (31562) AND (48819)Indication: Controlled diabetes mellitus type II without complication On: 9-Mqc-281000:17 Request METABOLIC PANEL, COMPREHENSIVE (03535)Indication: Hypertension On: 5-Sph-207480:17 Request LIPID PANEL (24434)Indication: Hypertension On: 9-Jyv-104377:17 Request CBC with auto diff (63281)Indication: Hypertension On: 1-Xpz-056906:17 Request Vitamin D Hydroxy (38321)Indication: Vitamin D deficiency, unspecified On: 9-Jvp-243869:17 Request Vitamin D Hydroxy (39938)Indication: Controlled diabetes mellitus type II without complication On: 5-Rvu-215279:57 Request TSH (01210)Indication: Controlled diabetes mellitus type II without complication On: 8-Qno-883245:57 Request URINALYSIS, W/ MICRO (64476)Indication: Controlled diabetes mellitus type II without complication On: 8-Gox-171284:57 Request MICROALBUMIN: CREATININE RATIO (52120) AND (41802)Indication: Controlled diabetes mellitus type II without complication On: 6-Mqf-828746:57 Request METABOLIC PANEL, COMPREHENSIVE (89575)Indication: Controlled diabetes mellitus type II without complication On: 4-Gff-136306:57 Request LIPID PANEL (77503)Indication: Mixed hyperlipidemia On: 2-Yzz-944425:57 Request CBC W/AUTO DIFF WBC (31990)Indication: Controlled diabetes mellitus type II without complication On: 2-Gqp-753293:56 Request Vitamin D Hydroxy (93292)Indication: Vitamin D deficiency, unspecified On: 8-Sbd-321910:01 Request LIPID PANEL (53391)Indication: Vitamin D deficiency, unspecified On: 7-Fyy-368326:01 Request TSH (48070)Indication: Diabetes type 2, uncontrolled On: 4-Kge-009849:00 Request URINALYSIS, W/ MICRO (99134)Indication: Diabetes type 2, uncontrolled On: 9-Esk-337497:00 Request MICROALBUMIN: CREATININE RATIO (36056) AND (06140)Indication: Diabetes type 2, uncontrolled On: 3-Lay-965230:00 Request METABOLIC PANEL, COMPREHENSIVE (38951)Indication: Diabetes type 2, uncontrolled On: :00 Request CBC WITH MANUAL DIFF (40371)Indication: Diabetes type 2, uncontrolled On: 4-Pks-713855:00 Request CALCIFIDIOL (29519) VIT D 25Indication: Vitamin D deficiency, unspecified On: 1-Ije-140067:55 Request Vitamin D Hydroxy (01071)Indication: Vitamin D deficiency, unspecified On: :13 Request TSH (40724)Indication: Diabetes type 2, uncontrolled On: :13 Request URINALYSIS, W/ MICRO (42345)Indication: Diabetes type 2, uncontrolled On: :13 Request MICROALBUMIN: CREATININE RATIO (95500) AND (50299)Indication: Diabetes type 2, uncontrolled On: :13 Request METABOLIC PANEL, COMPREHENSIVE (08837)Indication: Diabetes type 2, uncontrolled On: :13 Request CBC WITH MANUAL DIFF (74004)Indication: Diabetes type 2, uncontrolled On: :13 Request LIPID PANEL (46897)Indication: Diabetes type 2, uncontrolled On: :13 Request Vitamin D Hydroxy (08670)Indication: Vitamin D deficiency, unspecified On: 5-Lcn-298217:00 Request TSH (39602)Indication: Diabetes type 2, uncontrolled On: 0-Jtk-622558:59 Request URINALYSIS, W/ MICRO (40820)Indication: Diabetes type 2, uncontrolled On: 3-Lwy-543669:59 Request MICROALBUMIN: CREATININE RATIO (71679) AND (49392)Indication: Diabetes type 2, uncontrolled On: 3-Lye-669937:59 Request METABOLIC PANEL, COMPREHENSIVE (68793)Indication: Diabetes type 2, uncontrolled On: 4-Jbs-566320:59 Request LIPID PANEL (24799)Indication: Diabetes type 2, uncontrolled On: 8-Rco-357897:59 Request CBC WITH MANUAL DIFF (96210)Indication: Diabetes type 2, uncontrolled On: 3-Ass-680653:59 Request Lipid Panel (53882)Indication: Vitamin D deficiency, unspecified On: 92-Fvp-84410:12 Request HEPATIC FUNCTION PANEL (80641)Indication: Vitamin D deficiency, unspecified On: :12 Request LIPID PANEL (13458)Indication: Vitamin D deficiency, unspecified On: 5-Uzi-061149:04 Request CBC with manual diff (88157)Indication: Leukopenia On: 50-Wws-976779:14 Request VITAMIN B12 AND FOLATES (71597)Indication: Leukopenia On: 12-Gpk-111086:14 Request TSH (38690)Indication: Diabetes type 2, uncontrolled On: :42 Request URINALYSIS, W/ MICRO (12054)Indication: Diabetes type 2, uncontrolled On: : Request MICROALBUMIN: CREATININE RATIO (51908) AND (98555)Indication: Diabetes type 2, uncontrolled On: :42 Request METABOLIC PANEL, COMPREHENSIVE (50988)Indication: Diabetes type 2, uncontrolled On: : Request CBC WITH MANUAL DIFF (64921)Indication: Diabetes type 2, uncontrolled On: :42 Request CALCIFIDIOL (98291) VIT D 25Indication: Vitamin D deficiency, unspecified On: : Request LIPID PANEL (47086)Indication: Mixed hyperlipidemia On: 37-Aze-828858:06 Request TSH (89149)Indication: Diabetes type 2, uncontrolled On: 48-Ety-656461:33 Request MICROALBUMIN: CREATININE RATIO (24095) AND (63954)Indication: Diabetes type 2, uncontrolled On: 97-Ruf-380151:33 Request METABOLIC PANEL, COMPREHENSIVE (62323)Indication: Diabetes type 2, uncontrolled On: 42-Zmb-084439:33 Request LIPOPROTEIN, BLD, BY NMR (71216)Indication: Diabetes type 2, uncontrolled On: 12-Tlx-885440:33 Request LIPID PANEL (88324)Indication: Diabetes type 2, uncontrolled On: 48-Plv-667883:33 Request CBC WITH MANUAL DIFF (51079)Indication: Diabetes type 2, uncontrolled On: :33 Request LIPID PANEL (48351)Indication: Mixed hyperlipidemia On: :25 Request LIPOPROTEIN, BLD, BY NMR (31643)Indication: Mixed hyperlipidemia On: 9-Ile-771709:25 Request Comments: DO IN 3 MONTHS TSH (72858)Indication: Controlled diabetes mellitus type II without complication On: :34 Request MICROALBUMIN: CREATININE RATIO (00365) AND (42574)Indication: Controlled diabetes mellitus type II without complication On: 51-Dsk-995326:34 Request METABOLIC PANEL, COMPREHENSIVE (78470)Indication: Controlled diabetes mellitus type II without complication On: :34 Request LIPOPROTEIN, BLD, BY NMR (35442)Indication: Controlled diabetes mellitus type II without complication On: 53-Tap-997360:34 Request LIPID PANEL (89497)Indication: Controlled diabetes mellitus type II without complication On: 54-Yuh-280287:34 Request CBC WITH MANUAL DIFF ([id number])Indication: Controlled diabetes mellitus type II without complication On: 06-Ukp-981878:34 Request MICROALBUMIN: CREATININE RATIO (66848) AND (22835)Indication: Controlled diabetes mellitus type II without complication On: 60-Mit-294743:08 Request URINALYSIS W/O MICRO (76029)Indication: Benign essential hypertension On: :08 Request TSH (53595)Indication: Benign essential hypertension On: :08 Request LIPID PANEL (40921)Indication: Benign essential hypertension On: :08 Request METABOLIC PANEL, COMPREHENSIVE (10728)Indication: Benign essential hypertension On: :08 Request CBC WITH MANUAL DIFF (13950)Indication: Benign essential hypertension On: 15-Cpn-977973:08 Request HEPATIC FUNCTION PANEL (30134)Indication: Mixed hyperlipidemia On: 37-Qee-749245:58 Request TSH (36231)Indication: Controlled diabetes mellitus type II without complication On: 01-Wwu-602770:17 Request MICROALBUMIN: CREATININE RATIO (34318) AND ([id number])Indication: Controlled diabetes mellitus type II without complication On: 90-Ewm-980661:17 Request METABOLIC PANEL, COMPREHENSIVE (89466)Indication: Controlled diabetes mellitus type II without complication On: 54-Hfa-166010:17 Request CBC WITH MANUAL DIFF (62560)Indication: Controlled diabetes mellitus type II without complication On: 81-Kbu-129312:17 Request LIPID PANEL (87933)Indication: Controlled diabetes mellitus type II without complication On: 12-Vid-429593:17 Request LIPID PANEL (26337)Indication: Mixed hyperlipidemia On: 8-Nbq-265975:46 Request Glucose, PP/2 Hour (35792)Indication: Other specified abnormal findings of blood chemistry On: :06 Request LIPID PANEL (49783)Indication: Mixed hyperlipidemia On: :06 Request Comments: do in 4 months TSH (66999)Indication: Fatigue On: : Request Folate (79176)Indication: Fatigue On: : Request VITAMIN B-12 (CYANOCOBALAMIN) (50132)Indication: Fatigue On: Request SED RATE ERYTHROCYTE (26857)Indication: Fatigue On: : Request RHEUMATOID FACTOR-QUANT (60669)Indication: Fatigue On: Request C-REACTIVE PROTEIN (24607)Indication: Fatigue On: : Request METABOLIC PANEL, COMPREHENSIVE (59367)Indication: Fatigue On: Request CBC (AUTO) (56260)Indication: Fatigue On: Request TYESHA (ANTINUCLEAR ANTIBODY) (20049)Indication: Fatigue On: Request TSH (32716)Indication: Hypertension On: Request URINALYSIS W/O MICRO (39856)Indication: Hypertension On: Request MICROALBUMIN URINE QUANT (48233)Indication: Hypertension On: : Request METABOLIC PANEL, COMPREHENSIVE (44521)Indication: Hypertension On: Request CBC WITH MANUAL DIFF (28999)Indication: Hypertension On: :28 Request LIPID PANEL (60730)Indication: Mixed hyperlipidemia On: :28 Request METABOLIC PANEL, BASIC (73243)Indication: Hypertension On: :57 Request Comments: do before next appt Planned Encounters Medical; Other symptoms - right shoulder pain On: 08-Sep-2018 14:15 [facility] Kalyn Forbes DO, DO, [facility]; 3 Month FU - On: 24-Nov-2018 14:00 [facility] Kalyn Forbes DO, DO, Kathleen Planned Procedures PHYSICAL THERAPY (85456)By: On: 07-Sep-2018 Intent Brenda Jones Radiology - Cervical SpineBy: On: 07-Sep-2018 Intent Brenda Jones Radiology - Shoulder - RightBy: On: 07-Sep-2018 Intent Brenda Jones Toradol Injection, 30 mg On: 07-Sep-2018 Intent (J1885)By: Brenda Jones Comments: toradol 30mg injection lot:[id number]: 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,DICTAPHONE TRANSCRIBER Spirometry (71756)By: Evan CAMPBELL, On: 26-May-2018 Intent Kalyn Meyer DO Comments: really poor technique -- ELECTROCARDIOGRAM, COMPLETE (ECG) On: 17-Feb-2018 Intent (08246)By: Kalyn Forbes DO Comments: nsr no acute chg Kalyn Forbes DO Spirometry (18944)By: Evan CAMPBELL, On: 01-Jul-2017 Intent Kalyn Meyer DO Comments: mmild restirctive- asx- poor technique??-- didnt order TLC now since asx -- will follow ELECTROCARDIOGRAM, COMPLETE (ECG) On: 18-Mar-2017 Intent (75679)By: Kalyn Forbes DO Comments: nsr no acute chg Kalyn Forbes DO Spirometry (45901)By: Evan CAMPBELL, On: 30-Apr-2016 Intent Kalyn Meyer DO Comments: mild obstruction -- enc to take advair more routinely EKG (46882)By: Evan CAMPBELL, On: 04-Apr-2015 Intent Kalyn Meyer DO Comments: nsr no acute chg IMMUNIZ ADMNIN, 1 VAC, SNGL/COMBO On: 05-Jul-2014 Intent (51028)By: Kalyn Forbes DO Comments: lot [id number] 10/23/15location L armroute imgiven by - msmith VIS and/or ABN signed Kalyn Forbes DO PNEUM VAC ADLT/IMUMNOSPR, On: 05-Jul-2014 Intent SBC/INTRM (39319)By: Kalyn Forbes DO, DO, Kathleen EKG (48684)By: Evan CAMPBELL, On: 01-Apr-2014 Intent Kalyn Meyer DO Comments: nsr no acute chg Eprescribed prescriptions On: 01-Oct-2013 Intent (G8553)By: Kalyn Forbes DO, DO, Kathleen Eprescribed prescriptions On: 29-Jun-2013 Intent (G8553)By: Brenda Arthur LPN Spirometry (00476)By: Evan CAMPBELL, On: 30-Mar-2013 Intent Kalyn Meyer DO Comments: normal EKG (58136)By: Evan CAMPBELL, On: 30-Mar-2013 Intent Kalyn Meyer DO Comments: nsr no acute chg Eprescribed prescriptions On: 30-Mar-2013 Intent (G8553)By: Brenda Arthur LPN Eprescribed prescriptions On: 25-Dec-2012 Intent (G8553)By: Oksana Caldera Eprescribed prescriptions On: 04-Dec-2012 Intent (G8553)By: Melissa Romero Eprescribed prescriptions On: 17-Oct-2012 Intent (G8553)By: Brenda Arthur LPN Eprescribed prescriptions On: 11-Sep-2012 Intent (G8553)By: Amy Wilder LPN Spirometry (44501)By: Evan CAMPBELL, On: 21-Feb-2012 Intent Kalyn Meyer DO Comments: restrictive -- but so poor techniq - dont want to put alot of weight on that Eprescribed prescriptions On: 02-Jul-2011 Intent (G8553)By: Kalyn Forbes DO, DO, Kathleen Radiology - Lumbar SpineBy: Evan On: 31-May-2011 Intent Kalyn CAMPBELL DO, Kalyn Eprescribed prescriptions On: 10-May-2011 Intent (G8553)By: Kalyn Forbes DO, DO, Kalyn Eprescribed prescriptions On: 03-Feb-2011 Intent (G8553)By: Kalyn Forbes DO, DO, Kathleen Nuclear Medicine - Bone ScanBy: On: 23-Nov-2010 Intent Kalyn Forbes DO, DO, Comments: [facility]. 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 will try but lets see what bid EKG (36100)By: Evan CAMPBELL, On: 20-Jul-2010 Intent Kalyn Meyer DO Comments: nsr no acute chg Spirometry ([id number])By: Evan CAMPBELL, On: 08-Oct-2009 Intent Kalyn Meyer DO Comments: obstruction but poor tch EKG ([id number])By: Wily ROBLEDO, On: 30-May-2009 Intent Maria Del Rosario Comments: nsr no acute changes THER/PROPH/DIAG IV INF, INIT On: 07-Mar-2009 Intent ([id number])By: CORBIN Kwok INFUSION, NORMAL SALINE SOLUTION , On: 07-Mar-2009 Intent 250 CC ([id number])By: CORBIN Kwok Rocephin Injection, 2 Gram On: 07-Mar-2009 Intent ([id number])By: CORBIN Kwok Comments: Lot #:[id number] date:mount given:2 grams Route:IV Site given:left hand Given by: lorraineellinfused without diff patient voiced no complaints INFUSION, NORMAL SALINE SOLUTION , On: 06-Mar-2009 Intent 1000 CC (Special Coverage Instructions Apply. See MCM: 2049) ([id number])By: Lavonne French CNP HYDRATION IV INFUSION, INIT On: 06-Mar-2009 Intent ([id number])By: Lavonne French CNP Rocephin Injection, 2 Gram On: 06-Mar-2009 Intent ([id number])By: Lavonne French CNP Spirometry ([id number])By: Evan CAMPBELL, On: 15-Nov-2008 Intent Kayln Meyer DO Comments: done-AWpoor effort -- obstruciton -- asx not using resuce inhaler MRI - OtherBy: Kalyn Forbes DO On: 19-Aug-2008 Intent Kalyn Forbes DO Comments: Left Arm Inhaler Demo ([id number])By: Evan CAMPBELL, On: 10-Jul-2008 Intent Kalyn Meyer DO Comments: done km Aerosol Treatment ([id number])By: On: 10-Jul-2008 Intent Kalyn Forbes DO, DO, Comments: done with albuterol 0.83%better air exchange no wheeze Kalyn Solu- Medrol Injection, 125mg On: 10-Jul-2008 Intent ([id number])By: Kalyn Forbes DO Comments: 2ml given im lt hip lot oatd6 exp 5-11 Kalyn Forbes DO Inhaler Demo ([id number])By: Evan CAMPBELL, On: 08-Nov-2007 Intent Kalyn Meyer DO Solu- Medrol Injection, 125mg On: 08-Nov-2007 Intent ([id number])By: Kalyn Forbes DO Comments: 2ml given imk lt hip lot oajmt exp -10 Kalyn Forbes DO Aerosol Treatment ([id number])By: On: 08-Nov-2007 Intent Kalyn Forbes DO, DO, Comments: doneMORE AIR EXCHANGE AND NO JUNKY NOISE ANYMORE Kalyn Radiology - Chest- PA and LatBy: On: 08-Nov-2007 Intent Kalyn Forbes DO, DO, Kalyn Spirometry ([id number])By: Evan CAMPBELL, On: 08-Nov-2007 Intent Kalyn Meyer DO Comments: done kmNORMAL Radiology - Foot - LeftBy: Evan On: 03-Aug-2007 Intent Kalyn CAMPBELL DO, Kathleen Nuclear Stress Test/Stress On: 03-Apr-2007 Intent SPECT/TreadmillBy: Evan CAMPBELL, Comments: heart group to read Kalyn Meyer DO Echo CompleteBy: Evan CAMPBELL, On: 03-Apr-2007 Intent Kalyn Meyer DO Comments: heart group to read EKG ([id number])By: Evan CAMPBELL, On: 03-Apr-2007 Intent Kalyn Meyer DO Comments: nsr no acute ischemic changes SHAVE LESION, On: 31-Oct-2006 Intent FACE/LID/EAR/NOSE/LIP ([id number])By: Kalyn Forbes DO, DO, Kathleen Spirometry ([id number])By: Evan CAMPBELL, On: 19-Sep-2006 Intent Kalyn Meyer DO Comments: moderate obstruction--on no inhalers encouraged her to resume advair discus and will repeat in one month EKG ([id number])By: Evan CAMPBELL, On: 19-Sep-2006 Intent Kalyn Meyer [...] Advance Directives Name Dates Details Immunization Registry [place] - Effective on Effective: 25-Aug-201808/25/2018. Expiration date unspecified Encounters Office Visit On: 07-Sep-2018 7:00 Encounter Reason: [...] intolerance: had her weekly labs drawn at [facility] [place] and they called stating her sugar was [...] (238.9), ASTHMA, UNSPECIFIED, WITH ACUTE EXACERBATION (493.92), [facility] V72.31 [facility] Office [...]
--- OUTSIDE RECORDS SUMMARY | 2018-11-18 16:27 | XMS RPT_ITS | Continuity of Care Document ---
:1955 Author Organization [facility] Address [facility] [address] Phone Care Team Providers Name Role Phone Kalyn Forbes DO Unavailable Ekaterina SIM, Dr. 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 Unavailable Unavailable VENKAT Arthur Unavailable Unavailable Unavailable Unavailable [...] Dysuria (R30.0, 788.1) Comments: cont to drink ja8peggbvv juice Status: Active Eustachian tube dysfunction (H69.80, [...] masci thn they will resolve-- Status: Active Microalbuminuria (R80.9, [...] DO, DO, Kathleen Start : 13-Mar-2018 Active Ozempic 1 MG/DOSE Subcutaneous Solution Pen-injector 1 (one) Milligram qweek for 0 days Quantity: 3 {Box} Refills: 3 Ordered:25-Aug-2018 Chris Forbes DO, DO, Kathleen Start : 25-Aug-2018 Active Comments:3month supply Proventil HFA 108 (90 Base) MCG/ACT Inhalation Aerosol Solution 2 (two) Aerosol Soln Aerosol Soln Q 6hr/PRN for 0 days Quantity: 1 {Inhaler} Refills: 0 Ordered:07-Oct-2017 Brenda Arthur LPN Start : 07-Oct-2017 Active Victoza 18 MG/3ML Subcutaneous Solution Pen-injector 1.8 mg qd sc for 90 days Quantity: 3 {Each} Refills: 3 Ordered:08-May-2018 Evan DOChris NegarKalyn Start : 08-May-2018 Active ACYCLOVIR, 400MG (Oral [...] Quantity: 30 {Capsule} Refills: 0 Ordered:26-May-2018 Brenda Artuhr LPN Start : 07-Oct-2017 End : 26-May-2018 [...] End : 11-Jul-2015 Inactive Comments:std process LINK, 34193CRXG (Oral Capsule) 1 Capsule qweek for 360 days Refills: 0 Ordered:02-Aug-2011 Brenda Arthur LPN Start : 20-Jul-2010 End : 15-Jul-2011 Inactive EFFEXOR XR, 37.5MG (Oral Capsule Extended Release 24 Hour) 1 qd (37.5 MG) Inactive ETODOLAC CR, 400MG (Oral Tablet Extended Release 24 Hour) 2 (two) Tablet ER 24HR qd with food for 0 days Quantity: 30 {Tablet_ER_24HR} Refills: 0 Ordered:09-Aug-2011 Wily ROBLEDO Maria Del Rosario Start : 31-May-2011 End : 09-Aug-2011 Inactive [...] End : 19-Nov-2011 Inactive Comments:ten VITAMIN D, 31064AKSD (Oral Capsule) 1 q week (70598 U) Inactive VITAMIN D3, 2000UNIT (Oral Capsule) 1 (one) Capsule Capsule qd for 120 days Refills: 0 Ordered:07-Feb-2014 Brenda Arthur LPN Start : 01-Oct-2013 End : 29-Jan-2014 Inactive VITAMIN D3, 05459JPIY (Oral Capsule) 1 Capsule weekly for 0 [...] felt fine and no fever now-called to [facility] in [place] Status: Inactive as of 30-Mar-2013 Cellulitis of [...] Tonsillectomy Completed Date Value Details 04-Apr-2015 Spirometry (53584) Comments: restriction disease-technique dependent Result: 01-Apr-2014 Spirometry (93008) Comments: normal Result: Family History Unknown Family [...] smoker Vital Signs Date Test Result Details :47 Temperature 97.9 f Comments: Method: Temporal [...] kg/m2 Body Surface Area Calculated 1.87 m2 92-Bam-717813:06 Temperature 98.8 f Comments: Method: Oral Pulse [...] kg/m2 Body Surface Area Calculated 1.87 m2 33-Yye-393028:02 Temperature 99 f Comments: Method: Oral Pulse [...] 0.00 cm Results Date Description Value Details :42 HgA1C , Office (33066) HgA1C , Office 7.5 % (Abnormal) Range: 4.6 - 7.1 :42 Blood Glucose , Office (85658) Blood Glucose , Office 157 (Normal) :56 HgA1C , Office (35739) HgA1C , Office 6.7 % (Normal) Range: 4.6 - 7.1 :56 Blood Glucose , Office (52192) Blood Glucose , Office 150 (Normal) :42 HgA1C , Office (48679) HgA1C , Office 6.2 % (Normal) Range: 4.6 - 7.1 :19 HgA1C , Office (84226) HgA1C , Office 7.1 % (Normal) Range: 4.6 - 7.1 :19 Blood Glucose , Office (23243) Blood Glucose , Office 89 (Normal) :25 HgA1C , Office (93595) HgA1C , Office 6.9 % (Normal) Range: 4.6 - 7.1 :25 Blood Glucose , Office (21192) Blood Glucose , Office 112 (Normal) :14 HgA1C , Office (58141) HgA1C , Office 6.5 % (Normal) Range: 4.6 - 7.1 :14 Blood Glucose , Office (33859) Blood Glucose , Office 159 (Normal) :48 HgA1C , Office (31736) HgA1C , Office 6.4 % (Normal) Range: 4.6 - 7.1 :48 Blood Glucose , Office (43188) Blood Glucose , Office 91 (Normal) :39 Microscopic Examination Comments: PATIENT WAS FASTINGPERFORMED BY: [facility] [id number] Bacteria Few (Normal) Mucus Threads Present (Normal) Epithelial Cells (non renal) 0-10 {/hpf} (Normal) Range: 0 - 10 RBC 0-2 {/hpf} (Normal) Range: 0 - 2 WBC 0-5 {/hpf} (Normal) Range: 0 - 5 :39 CALCIFIDIOL (54775) VIT D 25 Comments: PATIENT WAS FASTINGPERFORMED BY: geoladAt[facility] [id number] Vitamin D, 25-Hydroxy 37.4 ng/mL (Normal) Range: 30.0-100.0 Comments: Vitamin D deficiency has been defined by the [place] of[place]icine and an Endocrine Society practice guideline as alevel of serum 25-OH vitamin D less than 20 ng/mL (1,2).The Endocrine Society went on to further define vitamin Dinsufficiency as a level between 21 and 29 ng/mL (2).1. IOM ([place] of Medicine). 2010. Dietary reference intakes for calcium and D. [place]: The National Academies Press.2. Elizabeth MF, Charles LUNDY, Silke BATISTA, et al. Evaluation, treatment, and prevention of vitamin D deficiency: an Endocrine Society clinical practice guideline. JCEM. 2010; 96(7):1911-30. :39 TSH (07392) Comments: PATIENT WAS FASTINGPERFORMED BY: [employer] [place] [id number] TSH 1.340 {uIU/mL} (Normal) Range: 0.450-4.500 :39 URINALYSIS, W/ MICRO (63910) Comments: PATIENT WAS FASTINGPERFORMED BY: [employer] [place] [id number] Microscopic Examination See below: (Normal) Comments: Microscopic was indicated and was performed. Microscopic Examination MICRON (Normal) Comments: Microscopic follows if indicated. Nitrite, Urine Negative (Normal) Urobilinogen,Semi-Qn 0.2 mg/dL (Normal) Range: 0.2-1.0 Bilirubin Negative (Normal) Occult Blood Negative (Normal) Ketones Negative (Normal) Glucose Trace (Abnormal) Protein Negative (Normal) WBC Esterase Negative (Normal) Appearance Clear (Normal) Urine-Color Yellow (Normal) pH 6.0 (Normal) Range: 5.0-7.5 Specific [place] 1.021 (Normal) Range: 1.005-1.030 :39 MICROALBUMIN: CREATININE RATIO Comments: PATIENT WAS FASTINGPERFORMED BY: [employer] [address] [place] [place] [id number] (39941) AND (39832) Microalb/Creat Ratio <3.1 {mg/g_creat} (Normal) Range: 0.0-30.0 Microalbumin, Urine <3.0 ug/mL (Normal) Creatinine, Urine 97.1 mg/dL (Normal) :39 METABOLIC PANEL, COMPREHENSIVE Comments: PATIENT WAS FASTINGPERFORMED BY: TinyTap70 [facility] [id number] ([id number]) ALT (SGPT) 40 [iU]/L (Abnormal) Range: 0-32 [...] mg/dL (Abnormal) Range: 65-99 :39 LIPID PANEL (20790) Comments: PATIENT WAS FASTINGPERFORMED BY: [employer]6370 [facility] [id number] LDL/HDL Ratio 1.9 {ratio_units} (Normal) Range: 0.0-3.2 [...] Cholesterol, Total 174 mg/dL (Normal) Range: 100-199 46-Uhu-55115:39 CBC W/AUTO DIFF WBC Comments: PATIENT WAS FASTINGPERFORMED BY: LabCoPSE&G [facility] Special[facility] HospitalFmlcxi2586 [facility] [id number] Information: [id number] (21900) Immature Grans (Abs) 0.0 {x10E3/uL} (Normal) Range: [...] Range: 3.4-10.8 :56 Blood Glucose , Office (76762) Blood Glucose , Office 130 (Normal) 96-Nwi-197890:41 HgA1C , Office (77973) HgA1C , Office 6.8 % (Normal) Range: 4.6 - 7.1 05-Oxa-588282:41 Blood Glucose , Office (76153) Blood Glucose , Office 92 (Normal) 00-Gpu-172058:03 LIPID PANEL (65906) Comments: PATIENT WAS FASTINGPERFORMED BY: [employer]ore[employer]6370 [facility] [id number] Information: [id number] LDL/HDL Ratio 2.4 {ratio_units} (Normal) Range: 0.0-3.2 [...] Cholesterol, Total 203 mg/dL (Abnormal) Range: 100-199 97-Ayx-130704:03 CALCIFIDIOL (18595) VIT D 25 Comments: PATIENT WAS FASTINGPERFORMED BY: DuX[employer]orelin6370 [facility] [id number] Vitamin D, 25-Hydroxy 26.2 ng/mL (Abnormal) Range: 30.0-100.0 Comments: Vitamin D deficiency has been defined by the [place] of[place] and an Endocrine Society practice guideline as alevel of serum 25-OH vitamin D less than 20 ng/mL (1,2).The Endocrine Society went on to further define vitamin Dinsufficiency as a level between 21 and 29 ng/mL (2).1. IOM ([place] of [place]). 2010. Dietary reference intakes for calcium and D. [place]: The National AcademMape Press.2. Elizabeth MF, Charles LUNDY, Silke BATISTA, et al. Evaluation, treatment, and prevention of vitamin D deficiency: an Endocrine Society clinical practice guideline. JCEM. 2010; 96(7):1911-30. :11 Blood Glucose , Office (27283) Blood Glucose , Office 118 (Normal) :10 HgA1C , Office (16506) HgA1C , Office 6.4 % (Normal) Range: 4.6 - 7.1 :02 Blood Glucose , Office (79921) Blood Glucose , Office 103 (Normal) :02 HgA1C , Office (43477) HgA1C , Office 6.7 % (Normal) Range: 4.6 - 7.1 :25 HgA1C , Office (58797) HgA1C , Office 6.2 % (Normal) Range: 4.6 - 7.1 :25 Blood Glucose , Office (44389) Blood Glucose , Office 135 (Normal) :27 Blood Glucose , Office (45157) Blood Glucose , Office 73 (Normal) :27 HgA1C , Office (83525) HgA1C , Office 5.9 % (Normal) Range: 4.6 - 7.1 :46 HgA1C , Office (14952) HgA1C , Office 5.8 % (Normal) Range: 4.6 - 7.1 :46 Blood Glucose , Office (01604) Blood Glucose , Office 118 (Normal) :58 HgA1C , Office (08105) HgA1C , Office 5.9 % (Normal) Range: 4.6 - 7.1 :58 Blood Glucose , Office (83510) Blood Glucose , Office 75 (Normal) :58 HgA1C , Office (21889) HgA1C , Office 5.6 % (Normal) Range: 4.6 - 7.1 :58 Blood Glucose , Office (36526) Blood Glucose , Office 99 (Normal) :06 [...] 7-18 GLU 100 mg/dL (Normal) Range: 70-110 :06 LIPID VLDL 20 mg/dL (Normal) Range: 5-40 [...] CHOL 207 mg/dL (Abnormal) Comments: <200 mg/dL Ctnbhhors337-083 mg/dL Borderline>240 mg/dL High Risk :06 MIACRE MIALB 10.6 mg/L (Normal) tMICROCREAT 8.1 {mg/g_CRE} (Normal) CREU 130.8 mg/dL (Normal) :06 TSH 1.00 {uIU/mL} (Normal) Range: 0.358-3.74 :06 VITD 50.4 mg/mL (Normal) Comments: Vitamin D 25(OH) Status RangeDeficiency <20 ng/mL (50nmol/L)Insuffciency 20 - 30 ng/mL (50 - 75 nmol/L)Sufficiency 30 - 100 ng/mL (75 - 250 nmol/L)Toxicity >100 ng/mL (>250 nmol/L) 6-Zjs-211564:26 URINE KASHIF CULTURE-IDENTIFICATN Comments: PATIENT NOT FASTINGPERFORMED BY: LabCoPSE&G [facility] Specialized HospitalBggidj8675 [facility] [id number] Information: [id number] (99983) Result 1 BETAGB (Abnormal) Comments: Beta hemolytic [...] (CLSI 2011) Urine Final report (Abnormal) Culture,Comprehensive 4-Mqp-666395:07 Urinalysis, Office (03484) UA - LEUKOCYTE ESTERASE Small (Normal) UA - NITRITE Negative (Normal) URINE UROBILINGN ALEX TIMED Normal mg/dL (Normal) UA - PROTEIN Negative mg/dL (Normal) UA - PH 5 (Abnormal) UA - BLOOD Negative (Normal) UA - SPECIFIC GRAVITY 1.010 (Normal) UA - KETONES Negative mg/dL (Normal) UA - BILIRUBIN Negative (Normal) UA - GLUCOSE Negative (Normal) 9-Kss-791838:06 HgA1C , Office (73482) HgA1C , Office 7.0 % (Normal) Range: 4.6 - 7.1 :06 Blood Glucose , Office (79445) Blood Glucose , Office 82 (Normal) :38 HgA1C , Office (48420) HgA1C , Office 6.4 % (Normal) Range: 4.6 - 7.1 1-Dwt-753207:38 Blood Glucose , Office (27014) Blood Glucose , Office 106 (Normal) 55-Blh-849235:47 CBCD ANC 2.3 {X10_3/uL} (Normal) Range: 2.0-7.7 [...] 4.2-5.4 WBC 4.4 K/mm3 (Normal) Range: 4.4-11.0 05-Rhh-556306:47 CMP GAP 6 (Normal) Range: 5-15 CO2 [...] 126 mg/dLsuggests DIABETES MELLITUS per A.D.A. criteria. 71-Dos-750455:47 LIPID LDL 121 mg/dL (Normal) Range: 0-130 [...] CHOL 198 mg/dL (Normal) Comments: <200 mg/dL Pufrxqiuu687-069 mg/dL Borderline>240 mg/dL High Risk 14-Ead-519342:47 MIACRE tMICROCREAT 5.7 {mg/g_CRE} (Normal) MIALB 5.0 mg/L (Normal) CREU 87.7 mg/dL (Normal) 11-Krq-478066:47 TSH 0.62 {uIU/mL} (Normal) Range: 0.358-3.74 55-Oof-334685:47 UAC Comments: How was Urine Obtained? CLEAN [...] ng/mL (>250 nmol/L) :35 HgA1C , Office (01262) HgA1C , Office 6.1 % (Normal) Range: 4.6 - 7.1 :35 Blood Glucose , Office (46667) Blood Glucose , Office 102 (Normal) 2-Lqz-086179:24 HgA1C , Office (41057) HgA1C , Office 5.9 % (Normal) Range: 4.6 - 7.1 :24 Blood Glucose , Office (98147) Blood Glucose , Office 375 (Normal) 99-Wtv-899899:13 CBCMD ANC 3.2 3/uL (Normal) Range: 2.0-7.7 [...] 4.2-5.4 WBC 5.5 {k/mm3} (Normal) Range: 4.4-11.0 05-Tju-294310:13 CMP GAP 6 (Normal) Range: 5-15 CO2 [...] 126 mg/dLsuggests DIABETES MELLITUS per A.D.A. criteria. 32-Zre-896961:13 LIPID VLDL 40 mg/dL (Normal) Range: 5-40 [...] CHOL 231 mg/dL (Abnormal) Comments: <200 mg/dL Hppfmelee174-148 mg/dL Borderline>240 mg/dL High Risk :13 MIACRE tMICROCREAT 7.0 {mg/g_CRE} (Normal) MIALB 9.2 mg/L (Normal) CREU 130.6 mg/dL (Normal) :13 TSH 0.64 {uIU/mL} (Normal) Range: 0.358-3.74 :13 [facility] 0 SEEN {/hpf} (Normal) UBAC [...] ng/mL (250 nmol/L) :40 HgA1C , Office (43146) HgA1C , Office 7.1 % (Normal) Range: 4.6 - 7.1 :40 Blood Glucose , Office (71420) Blood Glucose , Office 123 (Normal) :05 Blood Glucose , Office (69206) Blood Glucose , Office 176 (Normal) 4-Bja-599984:43 HEPATIC FUNCTION PANEL Comments: PATIENT NOT FASTINGPERFORMED BY: [facility]6370 [facility] [id number] Information: [id number] (39159) ALT (SGPT) 146 [iU]/L (Abnormal) Range: 0-32 AST (SGOT) 101 [iU]/L (Abnormal) Range: 0-40 Alkaline Phosphatase, S 94 [iU]/L (Normal) Range: 25-150 Bilirubin, Direct 0.20 mg/dL (Normal) Range: 0.00-0.40 Albumin, Serum 4.5 g/dL (Normal) Range: 3.5-5.5 Bilirubin, Total 0.6 mg/dL (Normal) Range: 0.0-1.2 Protein, Total, Serum 7.1 g/dL (Normal) Range: 6.0-8.5 :14 Blood Glucose , Office (18463) Blood Glucose , Office 193 (Normal) :11 MICROALBUMIN: CREATININE RATIO Comments: PATIENT WAS FASTINGPERFORMED BY: [facility]toeatSche[facility]6370 [facility] [id number] (53890) AND (49097) Microalb/Creat Ratio 3.8 {mg/g_creat} (Normal) Range: 0.0-30.0 Microalbumin, Urine 6.3 ug/mL (Normal) Range: 0.0-17.0 Creatinine, Urine 167.6 mg/dL (Normal) Range: 15.0-278.0 :11 METABOLIC PANEL, COMPREHENSIVE Comments: PATIENT WAS FASTINGPERFORMED BY: [facility]6370 [facility] [id number] (80549) ALT (SGPT) 59 [iU]/L (Abnormal) Range: 0-32 [...] Glucose, Serum 177 mg/dL (Abnormal) Range: 65-99 76-Sjc-14373:11 CBC WITH MANUAL DIFF Comments: PATIENT WAS FASTINGPERFORMED BY: LabCoPSE&[facility] Special[facility] HospitalXijoye3401 [facility] [id number] Information: [id number] (96980) Immature Grans (Abs) 0.0 {x10E3/uL} (Normal) Range: [...] {x10E3/uL} (Abnormal) Range: 4.0-10.5 :11 LIPID PANEL (19695) Comments: PATIENT WAS FASTINGPERFORMED BY: TinyTap70 [facility]At[facility] [id number] LDL/HDL Ratio 2.9 {ratio_units} (Normal) Range: 0.0-3.2 LDL Cholesterol Calc 153 mg/dL (Abnormal) Range: 0-99 VLDL Cholesterol Josep 32 mg/dL (Normal) Range: 5-40 HDL Cholesterol 53 mg/dL (Normal) Comments: According to ATP-III Guidelines, HDL-C >59 mg/dL is considered anegative risk factor for CHD. Triglycerides 162 mg/dL (Abnormal) Range: 0-149 Cholesterol, Total 238 mg/dL (Abnormal) Range: 100-199 :11 Vitamin D Hydroxy (04879) Comments: PATIENT WAS FASTINGPERFORMED BY: geoladAt[facility] [id number] Vitamin D, 25-Hydroxy 63.5 ng/mL (Normal) Range: 30.0-100.0 Comments: Vitamin D deficiency has been defined by the [place] of[place]icine and an Endocrine Society practice guideline as alevel of serum 25-OH vitamin D less than 20 ng/mL (1,2).The Endocrine Society went on to further define vitamin Dinsufficiency as a level between 21 and 29 ng/mL (2).1. IOM ([place] of [place]). 2010. Dietary reference intakes for calcium and D. [place]: The National [employer] Press.2. Elizabeth HOWE, Charles LUNDY, Silke BATISTA, et al. Evaluation, treatment, and prevention of vitamin D deficiency: an Endocrine Society clinical practice guideline. JCEM. 2010; 96(7):1911-30. :10 HgA1C , Office (91386) HgA1C , Office 5.8 % (Normal) Range: 4.6 - 7.1 :10 Blood Glucose , Office (15690) Blood Glucose , Office 194 (Normal) Comments: fasting :15 HgA1C , Office (57104) HgA1C , Office 5.7 % (Normal) Range: 4.6 - 7.1 :15 Blood Glucose , Office (34989) Blood Glucose , Office 178 (Normal) :15 Vitamin D Hydroxy (49120) Comments: PATIENT NOT FASTINGPERFORMED BY: [facility] Rxohxv0920 [facility] [id number] Information: [id number] Vitamin D, 25-Hydroxy 60.0 ng/mL (Normal) Range: 30.0-100.0 Comments: Vitamin D deficiency has been defined by the [place] of[place]icine and an Endocrine Society practice guideline as alevel of serum 25-OH vitamin D less than 20 ng/mL (1,2).The Endocrine Society went on to further define vitamin Dinsufficiency as a level between 21 and 29 ng/mL (2).1. IOM ([place] of [place]). 2010. Dietary reference intakes for calcium and D. [place]: The National Academies Press.2. Elizabeth HOWE, Charles LUNDY, Silke BATISTA, et al. Evaluation, treatment, and prevention of vitamin D deficiency: an Endocrine Society clinical practice guideline. JCEM. 2010; 96(7):1911-30. :54 METABOLIC PANEL, Comments: PATIENT WAS FASTINGPERFORMED BY: Pr[employer]70 [facility] [id number] Information: [id number] COMPREHENSIVE (58623) ALT (SGPT) 24 [iU]/L (Normal) Range: 0-40 [...] mg/dL (Abnormal) Range: 65-99 :54 LIPID PANEL (91019) Comments: PATIENT WAS FASTINGPERFORMED BY: [employer]70 [facility] [id number] LDL/HDL Ratio 2.5 {ratio_units} (Normal) Range: 0.0-3.2 LDL Cholesterol Calc 144 mg/dL (Abnormal) Range: 0-99 VLDL Cholesterol Josep 28 mg/dL (Normal) Range: 5-40 HDL Cholesterol 58 mg/dL (Normal) Comments: According to ATP-III Guidelines, HDL-C >59 mg/dL is considered anegative risk factor for CHD. Triglycerides 141 mg/dL (Normal) Range: 0-149 Cholesterol, Total 230 mg/dL (Abnormal) Range: 100-199 66-Rfn-512134:54 Vitamin D Hydroxy (75487) Comments: PATIENT WAS FASTINGPERFORMED BY: [facility] Zkrnvv1679 [facility] [id number] Vitamin D, 25-Hydroxy 28.0 ng/mL (Abnormal) Range: 30.0-100.0 Comments: Vitamin D deficiency has been defined by the [place] of[place]icine and an Endocrine Society practice guideline as alevel of serum 25-OH vitamin D less than 20 ng/mL (1,2).The Endocrine Society went on to further define vitamin Dinsufficiency as a level between 21 and 29 ng/mL (2).1. IOM ([place] of [place]). 2010. Dietary reference intakes for calcium and D. [place]: The National Academies Press.2. Elizabeth MF, Charles NC, Silke BATISTA, et al. Evaluation, treatment, and prevention of vitamin D deficiency: an Endocrine Society clinical practice guideline. JCEM. 2010; 96(7):1911-30. [address]-Hwy-596465:35 HgA1C , Office (81384) HgA1C , Office 5.6 % (Normal) Range: 4.6 - 7.1 75-Tlt-289070:35 Blood Glucose , Office (47480) Blood Glucose , Office 129 (Normal) :45 CBC With Differential/Platelet Comments: Test(s) WBC; Platelets; Neutrophils (Absolute) called to YUNIER Jenkins on 11/29/2011 at 14:08 ESTPATIENT WAS FASTINGPERFORMED BY: [facility] Gafgvt7616 [facility] [id number] Hematology Comments: Note: (Normal) Comments: Manual differential [...] 3.80-5.10 WBC 1.4 {x10E3/uL} (Abnormal) Range: 4.0-10.5 24-Jij-84389:45 Immature Cells Comments: Test(s) WBC; Platelets; Neutrophils (Absolute) called to YUNIER on 11/29/2011 at 14:08 ESTPATIENT WAS FASTINGPERFORMED BY: [employer] Xfydxx3064 [facility] [id number] Blasts/blast like cells 21 % (Abnormal) Range: 0 - 0 :45 Lipid Panel With LDL/HDL Comments: Test(s) WBC; Platelets; Neutrophils (Absolute) called to [employer] on 11/29/2011 at 14:08 ESTPATIENT WAS FASTINGPERFORMED BY: [employer] Bsalcl2975 [facility] [id number] Ratio LDL/HDL Ratio 1.2 {ratio_units} (Normal) Range: 0.0-3.2 LDL Cholesterol Calc 52 mg/dL (Normal) Range: 0-99 VLDL Cholesterol Josep 22 mg/dL (Normal) Range: 5-40 HDL Cholesterol 43 mg/dL (Normal) Comments: According to ATP-III Guidelines, HDL-C >59 mg/dL is considered anegative risk factor for CHD. 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 Suggest bone marrowevaluation and flow cytometry and cytogenetics. Pathologist Comment: (Normal) Comments: This case was reviewed by Lila Kingsley M.D. PLTs Comment: (Normal) Comments: Thrombocytopenia.Few large platelets were observed. RBC Comment: (Normal) Comments: Decreased.Slight anisocytosis.Poikilocytosis.Rare nucleated RBC seen. WBC Comment: (Normal) Comments: Leukopenia. 76-Mzt-869024:54 HgA1C , Office (07693) HgA1C , Office 6.6 % (Normal) Range: 4.6 - 7.1 49-Siq-809961:54 Blood Glucose , Office (96946) Blood Glucose , 197 (Normal) Office Vitamin D, 23.4 ng/mL Comments: Test(s) WBC; Neutrophils (Absolute) called to Dr Wilson on 11/18/2011 at 05:44 ESTPATIENT NOT FASTINGPERFORMED BY: [facility] Wcjfmz1230 [facility] [id number] 25-Hydroxy (Abnormal) Range: 30.0-100.0 Comments: Vitamin D deficiency has been defined by the [place] of[place]icine and an Endocrine Society practice guideline as alevel of serum 25-OH vitamin D less than 20 ng/mL (1,2).The Endocrine Society went on to further define vitamin Dinsufficiency as a level between 21 and 29 ng/mL (2).1. IOM ([place] of [place]). 2010. Dietary reference intakes for calcium and D. [place]: The National Academies Press.2. Elizabeth MF, Charles NC, Silke BATISTA, et al. Evaluation, treatment, and prevention of vitamin D deficiency: an Endocrine Society clinical practice guideline. JCEM. 2010; 96(7):5011-30. 28-Jib-118033:05 BLD CNT, MANUAL CELL COUNT, Comments: Test(s) WBC; Neutrophils (Absolute) called to Dr Wilson on 11/18/2011 at 05:44 ESTPATIENT NOT FASTINGPERFORMED BY: LabCoPSE&G [facility] Specialized HospitalPxlyud9502 [facility] [id number] EACH (22810) Hematology Comments: Note: (Normal) Comments: Verified by [...] 3.80-5.10 WBC 1.2 {x10E3/uL} (Abnormal) Range: 4.0-10.5 40-Gsi-205324:05 EBV Panel (25574) Comments: Test(s) WBC; Neutrophils (Absolute) called to Dr Wilson on 11/18/2011 at 05:44 ESTPATIENT NOT FASTINGPERFORMED BY: LabScheurer Hospital6370 [facility] [id number] Interpretation: SPRCS (Normal) Comments: EBV Interpretation Chart [...] <0.9 Equivocal 0.9 - 1.0 Positive >1.0 43-Qqk-67088:55 CBCMD PATHR Reviewed (Normal) Comments: Leukopenia and [...] Comments: RESULTS CALLED TO DR FORBES 11/13/11 133EILEEN BARAJAS.REPORT READ BACK BY SAME . 77-Enk-20085:55 CMP GAP 6 (Normal) Range: 5-15 CO2 [...] D deficiency has been defined by the [place] of[place]icine and an Endocrine Society practice guideline as alevel of serum 25-OH vitamin D less than 20 ng/mL (1,2).The Endocrine Society went on to further define vitamin Dinsufficiency as a level between 21 and 29 ng/mL (2).1. IOM ([place] of [place]). 2010. Dietary reference intakes for calcium and D. [place]: The National Academies Press.2. Elizabeth MF, Charles LUNDY, Silke BATISTA, et al. Evaluation, treatment, and prevention of vitamin D deficiency: an Endocrine Society clinical practice guideline. JCEM. 2010; 96(7): 1911-30. .Effective November 01, 2011, Vitamin D, 25 Hydroxy specimen requirements will change to serum only.Performed at: - Lab[address] [id number] Director: Lila Kingsley MD, Phone: [phone] GLU 158 mg/dL (Abnormal) Comments: PATIENT [...] on 06/01/111702 Sign by: Mitch Street MD 63-Ele-344525:20 HgA1C , Office (81293) HgA1C , Office 6.7 % (Normal) Range: 4.6 - 7.1 :20 Blood Glucose , Office (35210) Blood Glucose , Office 175 (Normal) 2-Jdx-262746:00 LIVER D BILI 0.11 mg/dL (Normal) Range: [...] per A.D.A. criteria. :22 HgA1C , Office (45018) HgA1C , Office 6.7 % (Normal) Range: 4.6 - 7.1 :22 Blood Glucose , Office (95709) Blood Glucose , Office 205 (Normal) 78-Eoa-212915:00 CHEST WITH CONTRAST Radiology Report See Note [...] 11/19/10 1326 Sign by: JAMARI HARRIS MD 06-Mrp-554634:47 HgA1C , Office (52059) HgA1C , Office 6.8 % (Normal) Range: 4.6 - 7.1 :47 Blood Glucose , Office (87473) Blood Glucose , Office 175 (Normal) :54 [...] 0.77 {uIU/mL} (Normal) Range: 0.358-3.74 :54 VITD 1, 36213 39.5 pg/mL (Normal) Range: 10.0-75.0 Comments: Performed at: - [facility] [id number] Director: Madi Chandler MD, Phone: [phone] HgA1C , Office (84104) HgA1C , Office 6.8 % (Normal) Range: 4.6 - 7.1 :52 Blood Glucose , Office (21884) Blood Glucose , Office 117 (Normal) :35 [...] mg/dL High Risk :55 HgA1C , Office (68302) Comments: done HgA1C , Office 6.3 % (Normal) Range: 4.6 - 7.1 :55 Blood Glucose , Office (42238) Comments: done Blood Glucose , Office 111 (Normal) :10 HgA1C , Office (31465) Comments: done HgA1C , Office 6.6 % (Normal) Range: 4.6 - 7.1 :10 Blood Glucose , Office (98684) Comments: done Blood Glucose , Office 108 (Normal) 7-Ywn-765311:00 CBCD,SMEAR DIFF ABSOLUTE NEUT 2.6 3/uL (Normal) [...] 4.2-5.4 WBC 5.5 K/mm3 (Normal) Range: 4.4-11.0 5-Zkc-403135:00 COMP METABOLIC ALK P 94 U/L (Normal) [...] <126 mg/dLsuggests IMPAIRED HOMEOSTASIS per A.D.A. criteria. 5-Stv-393576:00 LIPID CHOL 129 mg/dL (Normal) Comments: <200 mg/dL Pdsqacvox589-672 mg/dL Borderline>240 mg/dL High Risk HDL 46 mg/dL (Normal) Comments: Reference RangeHDL <40 mg/dL Low HDL CholesterolHDL >or= 60 mg/dL High HDL Cholesterol LDL 69 mg/dL (Normal) Range: 0-130 TRIG 69 mg/dL (Normal) Comments: Serum Triglycerides Reference IntervalNormal <150 mg/dLBorderline high 150 - 199 mg/dLHigh 200 - 499 mg/ dLVery High > or = 500 mg/dL VLDL 14 mg/dL (Normal) Range: 5-40 5-Yob-466117:00 MICROALB:CRE UR MALB:CREAT 3.4 {mg/g_CRE} (Normal) MICROALBUMIN,UR 6.9 mg/L (Normal) UR CREAT 199.6 mg/dL (Normal) 9-Evv-107177:00 NMR LIPOPROFILE HDL SIZE 8.5 nm (Abnormal) [...] DIABETES RISK MARKERS<--Insulin Sensitive Insulin Resistant-->Percentile in [facility] PopulationLarge VLDL-P Low 25th 50th 75th High<0.9 [...] High<27 27 45 63 >63 Performed at: S7 - [facility] [facility], [place], [place] [id number] Director: Kirit Venegas PhD SMALL LDL-P 889 [...] TOT 142 mg/dL (Normal) LIPIDS . (Normal) 6-Col-440566:00 TSH 0.79 {uIU/mL} (Normal) Range: 0.358-3.74 :44 HgA1C , Office (12809) Comments: done km HgA1C , Office 7.3 % (Abnormal) Range: 4.6 - 7.1 :44 Blood Glucose , Office (02591) Comments: done km Blood Glucose , Office 153 (Normal) :59 Blood Glucose , Office (39212) Blood Glucose , Office 102 (Normal) :59 HgA1C , Office (49476) HgA1C , Office 6.5 % (Normal) Range: [...] (Normal) Range: 0.358-3.74 :56 HgA1C , Office (24521) HgA1C , Office 6.4 % (Normal) Range: 4.6 - 7.1 :56 Blood Glucose , Office (88804) Blood Glucose , Office 235 (Normal) :55 HgA1C , Office (97188) Comments: done km HgA1C , Office 6.7 % (Normal) Range: 4.6 - 7.1 :55 Blood Glucose , Office (13179) Comments: done km Blood Glucose , Office 123 (Normal) :54 UPPER EXT/NO JT W/O CONTRAST Radiology Report See Note (Normal) Comments: Exam Number: [id number] MRI LEFT UPPER EXTREMITY ON THE OPEN [...] JAMARI TRAN M.D. :02 HgA1C , Office (80765) HgA1C , Office 6.0 % (Normal) Range: 4.6 - 7.1 :02 Blood Glucose , Office (46784) Blood Glucose , Office 151 (Normal) :33 HgA1C , Office (21272) HgA1C , Office 6.3 % (Normal) Range: 4.6 - 7.1 Comments: :33 Blood Glucose , Office (82356) Blood Glucose , Office 136 (Normal) Comments: [...] (Normal) Range: 0.34-4.82 :58 HgA1C , Office (85441) HgA1C , Office 5.9 % (Normal) Range: [...] :39 TSH 0.70 {uIU/mL} (Normal) Range: 0.34-4.82 28-Ylg-842712:57 CHEST, PA AND LATERAL Radiology Report See Note (Normal) Comments: Exam Number: [id number] PA AND LATERAL CHEST HISTORY Being done for cough. Cardiac configuration is normal. No acute infiltrate, effusion, orpneumothorax is identified. IMPRESSIONNo acu te change no marion in the lungs. Reported By: LESLIE VOSS M.D. 54-Den-624470:19 HgA1C , Office (09467) Comments: done km HgA1C , Office 6.0 % (Normal) Range: 4.6 - 7.1 77-Txd-603708:19 Blood Glucose , Office (10821) Comments: done km Blood Glucose , Office 93 (Normal) 4-Ipw-000088:12 FOOT,MIN 3 VIEWS Radiology Report See Note (Normal) Comments: Exam Number: [id number] LEFT FOOT, 3 VIEWS HISTORYPain. TECHNIQUEAP, lateral, [...] metatarsal head. Reported By: LESLIE VOSS M.D. 4-Stb-421891:11 LIPID CHOL 205 mg/dL (Abnormal) Comments: <200 [...] 500 mg/dL VLDL 15 mg/dL (Normal) Range: -40 :15 HgA1C , Office (62474) Comments: HgA1C , Office 6.0 % (Normal) Range: 4.6 - 7.1 :15 Blood Glucose , Office (89264) Comments: Blood Glucose , Office 90 (Normal) :10 LIPID PANEL (40393) Comments: do in 3mo; PATIENT WAS FASTINGClinical Information: ADD DRAW FEE 108186 ADD J0 3378 PERFORMED BY: [facility] [id number] Cholesterol, Total 227 mg/dL (Abnormal) Range: 100-199 Comment SPRCS (Normal) Comments: If initial LDL-cholesterol result is >100 mg/dL, assess forrisk factors. HDL Cholesterol 46 mg/dL (Normal) Range: 40-59 LDL Cholesterol Calc 165 mg/dL (Abnormal) Range: 0-99 LDL/HDL Ratio 3.6 {ratio_units} (Abnormal) Range: 0.0-3.2 Triglycerides 79 mg/dL (Normal) Range: 0-149 VLDL Cholesterol Josep 16 mg/dL (Normal) Range: 5-40 :55 Blood Glucose , Office (24220) Comments: done Blood Glucose , Office 123 (Normal) :55 HgA1C , Office (76033) Comments: done km HgA1C , Office 7.7 % (Abnormal) Range: 4.6 - 7.1 :55 GLUP 343 mg/dL (Abnormal) Comments: GLU,2HPPG 75gm GLUC PPG GLUP from 0825:W23200P. Comments: Glucose result greater than or equal [...] (Normal) Range: 0.2 - 1.0 :44 TYESHA-D [id number] TYESHA-DIRECT 57 U/mL (Normal) Range: 0-99 Comments: [...] {IU/mL} (Normal) Range: 0.0-13.9 Comments: Performed At: [address] [id number] TSH 0.76 {uIU/mL} (Normal) Range: 0.34-4.82 :46 MYOCARD PERF SPECT REST/STRESS Radiology Report See Note (Normal) Comments: Exam Number: [id number] MYOCARDIAL PERFUSION SCAN 13.8 millicuries of Tc99m Sestamibi was injected at rest. The patientthen exercised according to the regular Aguilar protocol for 6 minutesand 5 seconds a ttaining 97% of maximum predicted heart rate and workload of 7.1 METs. At peak exercise, 36.0 millicuries of Rx03sCeelxhqdr was injected. Stress images were then obtained. [...] Plan of Care Name Dates Details Instructions Diabetes type 2, uncontrolled : Follow up [...] LEUKEMIA, PLASMA CELL IN REMISSION : Reviewed Primary Class Teacher Letter Indication: LEUKEMIA, PLASMA CELL IN REMISSION [...] LEUKEMIA, PLASMA CELL IN REMISSION : Reviewed Primary Class Teacher Letter Indication: LEUKEMIA, PLASMA CELL IN REMISSION [...] LEUKEMIA, PLASMA CELL IN REMISSION : Reviewed Primary Class Teacher Letter Indication: LEUKEMIA, PLASMA CELL IN REMISSION Asthma : Continue Current Prescription(s) Indication: Asthma Mixed hyperlipidemia : Cholesterol mgmt Indication: Mixed hyperlipidemia Controlled diabetes mellitus type II without complication : Diabetes Mellitus: Type 2 *: diabetes mellitus Indication: Controlled diabetes mellitus type II without complication LEUKEMIA, PLASMA CELL IN REMISSION : Reviewed Primary Class Teacher Letter Indication: LEUKEMIA, PLASMA CELL IN REMISSION [...] and Vomiting Nausea and Vomiting : Reviewed Primary Class Teacher Letter Indication: Nausea and Vomiting Nausea and [...] LEUKEMIA, PLASMA CELL IN REMISSION : Reviewed Primary Class Teacher Letter Indication: LEUKEMIA, PLASMA CELL IN REMISSION Vitamin D deficiency, unspecified : Reviewed Lab Indication: Vitamin D deficiency, unspecified Controlled diabetes mellitus type II without complication : Diabetes Mellitus: Type 2 *: high blood glucose Indication: Controlled diabetes mellitus type II without complication Controlled diabetes mellitus type II without complication : Reviewed Primary Class Teacher Letter Indication: Controlled diabetes mellitus type II [...] Hyperlipidemia Planned Observations LIPOPROTEIN, BLD, BY NMR ([id number])Indication: Mixed hyperlipidemia On: :20 Request LIPOPROTEIN, BLD, BY NMR (87650)Indication: Mixed hyperlipidemia On: 80-Xfr-473469:54 Request CALCIFIDIOL (67874) VIT D 25Indication: Vitamin D deficiency, unspecified On: :54 Request TSH (22316)Indication: Controlled diabetes mellitus type II without complication On: 49-Bmd-580237:53 Request URINALYSIS, W/ MICRO (11931)Indication: Controlled diabetes mellitus type II without complication On: :53 Request MICROALBUMIN: CREATININE RATIO (20320) AND (21245)Indication: Controlled diabetes mellitus type II without complication On: 42-Wif-006002:53 Request METABOLIC PANEL, COMPREHENSIVE (50597)Indication: Controlled diabetes mellitus type II without complication On: :53 Request CBC W/AUTO DIFF WBC (98086)Indication: Controlled diabetes mellitus type II without complication On: :53 Request HGB A1C (68312)Indication: Diabetes type 2, uncontrolled On: 41-Sjs-563641:41 Request MICROALBUMIN: CREATININE RATIO (23895) AND (14034)Indication: Hypertension, benign On: 81-Lzm-695406:03 Request URINALYSIS (75018)Indication: Hypertension, benign On: 27-Qyk-502540:03 Request Metabolic Panel, Comprehensive (97029)Indication: Hypertension, benign On: 87-Ziw-945640:03 Request TSH (03917)Indication: Hypertension, benign On: 09-Jlm-067275:03 Request CALCIFEDIOL (91283)Indication: Vitamin D deficiency, unspecified On: 60-Xiq-629393:03 Request CBC WITH MANUAL DIFF (60824)Indication: Mixed hyperlipidemia On: 01-Rcd-143203:02 Request Lipid Panel (32869)Indication: Mixed hyperlipidemia On: 20-Vsc-840440:02 Request HGB A1C (09701)Indication: Diabetes type 2, uncontrolled On: 11-Oos-185178:02 Request CALCIFEDIOL (12712)Indication: Vitamin D deficiency, unspecified On: 5-Kcj-323445:59 Request HGB A1C (28167)Indication: Controlled diabetes mellitus type II without complication On: 9-Nvh-589040:42 Request CALCIFIDIOL (51099) VIT D 25Indication: Vitamin D deficiency, unspecified On: 5-Iib-905513:32 Request TSH (55762)Indication: Controlled diabetes mellitus type II without complication On: 0-Owr-132125:32 Request URINALYSIS, W/ MICRO (14720)Indication: Controlled diabetes mellitus type II without complication On: 6-Mkd-866682:32 Request MICROALBUMIN: CREATININE RATIO (92041) AND (03191)Indication: Controlled diabetes mellitus type II without complication On: 3-Vhh-878078:32 Request METABOLIC PANEL, COMPREHENSIVE (26189)Indication: Controlled diabetes mellitus type II without complication On: 2-Qql-973091:32 Request LIPID PANEL (20391)Indication: Controlled diabetes mellitus type II without complication On: 5-Yoh-130358:32 Request CBC W/AUTO DIFF WBC (98349)Indication: Controlled diabetes mellitus type II without complication On: 4-Cgn-584584:32 Request TSH (46805)Indication: Mixed hyperlipidemia On: :55 Request URINALYSIS, W/ MICRO (33538)Indication: Controlled diabetes mellitus type II without complication On: :55 Request MICROALBUMIN: CREATININE RATIO (01514) AND (53871)Indication: Controlled diabetes mellitus type II without complication On: 37-Rnd-218451:55 Request CBC W/AUTO DIFF WBC (83196)Indication: Controlled diabetes mellitus type II without complication On: :52 Request METABOLIC PANEL, COMPREHENSIVE (39536)Indication: Controlled diabetes mellitus type II without complication On: :52 Request CALCIFIDIOL (35442) VIT D 25Indication: Vitamin D deficiency, unspecified On: :52 Request LIPID PANEL (75214)Indication: Mixed hyperlipidemia On: :52 Request CALCIFIDIOL (58974) VIT D 25Indication: Vitamin D deficiency, unspecified On: :32 Request TSH (24898)Indication: Controlled diabetes mellitus type II without complication On: :32 Request URINALYSIS, W/ MICRO (56237)Indication: Controlled diabetes mellitus type II without complication On: :32 Request MICROALBUMIN: CREATININE RATIO (31955) AND (51778)Indication: Controlled diabetes mellitus type II without complication On: :32 Request METABOLIC PANEL, COMPREHENSIVE (19608)Indication: Controlled diabetes mellitus type II without complication On: :32 Request CBC W/AUTO DIFF WBC (52409)Indication: Controlled diabetes mellitus type II without complication On: :32 Request TSH (37679)Indication: Diabetes type 2, uncontrolled On: :28 Request URINALYSIS, W/ MICRO (79913)Indication: Diabetes type 2, uncontrolled On: :28 Request MICROALBUMIN: CREATININE RATIO (71622) AND (83921)Indication: Diabetes type 2, uncontrolled On: :28 Request METABOLIC PANEL, COMPREHENSIVE (47574)Indication: Diabetes type 2, uncontrolled On: :27 Request LIPID PANEL (58394)Indication: Mixed hyperlipidemia On: :27 Request CBC W/AUTO DIFF WBC (81697)Indication: Diabetes type 2, uncontrolled On: :27 Request CALCIFIDIOL (68269) VIT D 25Indication: Vitamin D deficiency, unspecified On: :27 Request Vitamin D Hydroxy (27352)Indication: Vitamin D deficiency, unspecified On: 8-Sld-126460:46 Request TSH (44291)Indication: Controlled diabetes mellitus type II without complication On: :17 Request URINALYSIS, W/ MICRO (73109)Indication: Hypertension On: :17 Request MICROALBUMIN: CREATININE RATIO (96292) AND (79717)Indication: Controlled diabetes mellitus type II without complication On: :17 Request METABOLIC PANEL, COMPREHENSIVE (94338)Indication: Hypertension On: :17 Request LIPID PANEL (22021)Indication: Hypertension On: :17 Request CBC with auto diff (01720)Indication: Hypertension On: : Request Vitamin D Hydroxy (07316)Indication: Vitamin D deficiency, unspecified On: :17 Request Vitamin D Hydroxy (21067)Indication: Controlled diabetes mellitus type II without complication On: 4-Jsy-660944:57 Request TSH (41710)Indication: Controlled diabetes mellitus type II without complication On: 7-Ipa-747961:57 Request URINALYSIS, W/ MICRO (90748)Indication: Controlled diabetes mellitus type II without complication On: 5-Mjn-518804:57 Request MICROALBUMIN: CREATININE RATIO (42632) AND (30632)Indication: Controlled diabetes mellitus type II without complication On: 3-Tay-789652:57 Request METABOLIC PANEL, COMPREHENSIVE (02267)Indication: Controlled diabetes mellitus type II without complication On: 8-Cip-812035:57 Request LIPID PANEL (25364)Indication: Mixed hyperlipidemia On: :57 Request CBC W/AUTO DIFF WBC (91161)Indication: Controlled diabetes mellitus type II without complication On: 1-Jue-648558:56 Request Vitamin D Hydroxy (13324)Indication: Vitamin D deficiency, unspecified On: :01 Request LIPID PANEL (74410)Indication: Vitamin D deficiency, unspecified On: :01 Request TSH (92635)Indication: Diabetes type 2, uncontrolled On: 9-Ici-716854:00 Request URINALYSIS, W/ MICRO (02708)Indication: Diabetes type 2, uncontrolled On: 1-Mzl-628639:00 Request MICROALBUMIN: CREATININE RATIO (39898) AND (06922)Indication: Diabetes type 2, uncontrolled On: 8-Mxd-928471:00 Request METABOLIC PANEL, COMPREHENSIVE (50143)Indication: Diabetes type 2, uncontrolled On: 8-Hlw-432829:00 Request CBC WITH MANUAL DIFF (11749)Indication: Diabetes type 2, uncontrolled On: 5-Vuw-150777:00 Request CALCIFIDIOL (02187) VIT D 25Indication: Vitamin D deficiency, unspecified On: 7-Cuj-147464:55 Request Vitamin D Hydroxy (64665)Indication: Vitamin D deficiency, unspecified On: 2-Jgs-951145:13 Request TSH (92004)Indication: Diabetes type 2, uncontrolled On: :13 Request URINALYSIS, W/ MICRO (73471)Indication: Diabetes type 2, uncontrolled On: :13 Request MICROALBUMIN: CREATININE RATIO (80494) AND (45932)Indication: Diabetes type 2, uncontrolled On: :13 Request METABOLIC PANEL, COMPREHENSIVE (12934)Indication: Diabetes type 2, uncontrolled On: 4-Hgt-731884:13 Request CBC WITH MANUAL DIFF (78775)Indication: Diabetes type 2, uncontrolled On: 6-Lkg-510063:13 Request LIPID PANEL (72956)Indication: Diabetes type 2, uncontrolled On: :13 Request Vitamin D Hydroxy (82559)Indication: Vitamin D deficiency, unspecified On: 7-Kkp-295280:00 Request TSH (66613)Indication: Diabetes type 2, uncontrolled On: 7-Fdm-282886:59 Request URINALYSIS, W/ MICRO (88289)Indication: Diabetes type 2, uncontrolled On: 2-Axd-586931:59 Request MICROALBUMIN: CREATININE RATIO (22700) AND (84790)Indication: Diabetes type 2, uncontrolled On: 4-Dir-598425:59 Request METABOLIC PANEL, COMPREHENSIVE (35968)Indication: Diabetes type 2, uncontrolled On: 6-Hgk-046574:59 Request LIPID PANEL (21938)Indication: Diabetes type 2, uncontrolled On: 9-Szn-508933:59 Request CBC WITH MANUAL DIFF (68451)Indication: Diabetes type 2, uncontrolled On: 6-Ljw-317236:59 Request Lipid Panel (59696)Indication: Vitamin D deficiency, unspecified On: :12 Request HEPATIC FUNCTION PANEL (69232)Indication: Vitamin D deficiency, unspecified On: :12 Request LIPID PANEL (01402)Indication: Vitamin D deficiency, unspecified On: 7-Ktd-134412:04 Request CBC with manual diff (06475)Indication: Leukopenia On: 04-Txw-824219:14 Request VITAMIN B12 AND FOLATES (95394)Indication: Leukopenia On: 71-Tdz-019974:14 Request TSH (84992)Indication: Diabetes type 2, uncontrolled On: :42 Request URINALYSIS, W/ MICRO (81380)Indication: Diabetes type 2, uncontrolled On: :42 Request MICROALBUMIN: CREATININE RATIO (80169) AND (13037)Indication: Diabetes type 2, uncontrolled On: :42 Request METABOLIC PANEL, COMPREHENSIVE (12688)Indication: Diabetes type 2, uncontrolled On: :42 Request CBC WITH MANUAL DIFF (67404)Indication: Diabetes type 2, uncontrolled On: :42 Request CALCIFIDIOL (13665) VIT D 25Indication: Vitamin D deficiency, unspecified On: :42 Request LIPID PANEL (78087)Indication: Mixed hyperlipidemia On: 67-Dak-777355:06 Request TSH (14629)Indication: Diabetes type 2, uncontrolled On: 61-Jnu-663638:33 Request MICROALBUMIN: CREATININE RATIO (66285) AND (69045)Indication: Diabetes type 2, uncontrolled On: 14-Bbe-299512:33 Request METABOLIC PANEL, COMPREHENSIVE (35431)Indication: Diabetes type 2, uncontrolled On: 26-Bqy-352345:33 Request LIPOPROTEIN, BLD, BY NMR (09250)Indication: Diabetes type 2, uncontrolled On: 82-Zwc-464947:33 Request LIPID PANEL (44808)Indication: Diabetes type 2, uncontrolled On: 98-Nwr-782943:33 Request CBC WITH MANUAL DIFF (55856)Indication: Diabetes type 2, uncontrolled On: 58-Jcj-259717:33 Request LIPID PANEL (50128)Indication: Mixed hyperlipidemia On: : Request LIPOPROTEIN, BLD, BY NMR (18250)Indication: Mixed hyperlipidemia On: : Request Comments: DO IN 3 MONTHS TSH (88067)Indication: Controlled diabetes mellitus type II without complication On: :34 Request MICROALBUMIN: CREATININE RATIO (11479) AND (36908)Indication: Controlled diabetes mellitus type II without complication On: :34 Request METABOLIC PANEL, COMPREHENSIVE (89662)Indication: Controlled diabetes mellitus type II without complication On: :34 Request LIPOPROTEIN, BLD, BY NMR (81862)Indication: Controlled diabetes mellitus type II without complication On: :34 Request LIPID PANEL (53294)Indication: Controlled diabetes mellitus type II without complication On: : Request CBC WITH MANUAL DIFF (30152)Indication: Controlled diabetes mellitus type II without complication On: :34 Request MICROALBUMIN: CREATININE RATIO (33301) AND (45135)Indication: Controlled diabetes mellitus type II without complication On: 64-Xje-105721:08 Request URINALYSIS W/O MICRO (87598)Indication: Benign essential hypertension On: 25-Tjp-561330:08 Request TSH (57209)Indication: Benign essential hypertension On: 30-Kvr-456690:08 Request LIPID PANEL (52295)Indication: Benign essential hypertension On: 16-Imv-157919:08 Request METABOLIC PANEL, COMPREHENSIVE (88485)Indication: Benign essential hypertension On: 91-Nfx-270658:08 Request CBC WITH MANUAL DIFF (57145)Indication: Benign essential hypertension On: 05-Uly-242079:08 Request HEPATIC FUNCTION PANEL (15043)Indication: Mixed hyperlipidemia On: 88-Bri-391516:58 Request TSH (09502)Indication: Controlled diabetes mellitus type II without complication On: 77-Yvp-792905:17 Request MICROALBUMIN: CREATININE RATIO (04722) AND (91783)Indication: Controlled diabetes mellitus type II without complication On: 95-Bcg-769092:17 Request METABOLIC PANEL, COMPREHENSIVE (67851)Indication: Controlled diabetes mellitus type II without complication On: 36-Gjz-470189:17 Request CBC WITH MANUAL DIFF (03659)Indication: Controlled diabetes mellitus type II without complication On: :17 Request LIPID PANEL (66243)Indication: Controlled diabetes mellitus type II without complication On: :17 Request LIPID PANEL (87718)Indication: Mixed hyperlipidemia On: 4-Zks-672224:46 Request Glucose, PP/2 Hour (45636)Indication: Other specified abnormal findings of blood chemistry On: : Request LIPID PANEL (66355)Indication: Mixed hyperlipidemia On: :06 Request Comments: do in 4 months TSH (68137)Indication: Fatigue On: :31 Request Folate (92361)Indication: Fatigue On: : Request VITAMIN B-12 (CYANOCOBALAMIN) (94922)Indication: Fatigue On: Request SED RATE ERYTHROCYTE (74344)Indication: Fatigue On: : Request RHEUMATOID FACTOR-QUANT (32413)Indication: Fatigue On: Request C-REACTIVE PROTEIN (05838)Indication: Fatigue On: :31 Request METABOLIC PANEL, COMPREHENSIVE (44505)Indication: Fatigue On: :31 Request CBC (AUTO) (44359)Indication: Fatigue On: Request TYESHA (ANTINUCLEAR ANTIBODY) (11056)Indication: Fatigue On: :31 Request TSH (04646)Indication: Hypertension On: :28 Request URINALYSIS W/O MICRO (52687)Indication: Hypertension On: 28 Request MICROALBUMIN URINE QUANT (42752)Indication: Hypertension On: :28 Request METABOLIC PANEL, COMPREHENSIVE (53831)Indication: Hypertension On: : Request CBC WITH MANUAL DIFF (22642)Indication: Hypertension On: :28 Request LIPID PANEL (82422)Indication: Mixed hyperlipidemia On: :28 Request METABOLIC PANEL, BASIC (85488)Indication: Hypertension On: 92-Fbi-964914:57 Request Comments: do before next appt Planned Encounters Medical; 3 Month FU - On: 24-Nov-2018 14:00 [facility] Evan DO, Kalyn Evan DO, Kalyn Planned Procedures Spirometry (47656)By: Evan CAMPBELL, On: 26-May-2018 Intent Kalyn Meyer DO Comments: really poor technique -- ELECTROCARDIOGRAM, COMPLETE (ECG) On: 17-Feb-2018 Intent (55589)By: Kalyn Forbes DO Comments: nsr no acute chg Kalyn Frobes DO Spirometry (05311)By: Evan CAMPBELL, On: 01-Jul-2017 Intent Kalyn Meyer DO Comments: mmild restirctive- asx- poor technique??-- didnt order TLC now since asx -- will follow ELECTROCARDIOGRAM, COMPLETE (ECG) On: 18-Mar-2017 Intent (13758)By: Kalyn Forbes DO Comments: nsr no acute chg Kalyn Forbes DO Spirometry (17832)By: Evan CAMPBELL, On: 30-Apr-2016 Intent Kalyn Meyer DO Comments: mild obstruction -- enc to take advair more routinely EKG (54978)By: Evan CAMPBELL, On: 04-Apr-2015 Intent Kalyn Meyer DO Comments: nsr no acute chg IMMUNIZ ADMNIN, 1 VAC, SNGL/COMBO On: 05-Jul-2014 Intent (42385)By: Kalyn Forbes DO Comments: lot [id number] 10/23/15location L armroute imgiven by - msmith VIS and/or ABN signed Kalyn Forbes DO PNEUM VAC ADLT/IMUMNOSPR, On: 05-Jul-2014 Intent SBC/INTRM (76081)By: Kalyn Forbes DO, DO, Kathleen EKG (15501)By: Evan CAMPBELL, On: 01-Apr-2014 Intent Kalyn Meyer DO Comments: nsr no acute chg Eprescribed prescriptions On: 01-Oct-2013 Intent (G8553)By: Kalyn Forbes DO, DO, Kathleen Eprescribed prescriptions On: 29-Jun-2013 Intent (G8553)By: Brenda Arthur LPN Spirometry (74763)By: Evan CAMPBELL, On: 30-Mar-2013 Intent Kalyn Meyer DO Comments: normal EKG (74360)By: Evan CAMPBELL, On: 30-Mar-2013 Intent Kalyn Meyer DO Comments: nsr no acute chg Eprescribed prescriptions On: 30-Mar-2013 Intent (G8553)By: Brenda Arthur LPN Eprescribed prescriptions On: 25-Dec-2012 Intent (G8553)By: Oksana Caldera Eprescribed prescriptions On: 04-Dec-2012 Intent (G8553)By: Melissa Romero Eprescribed prescriptions On: 17-Oct-2012 Intent (G8553)By: Brenda Arthur LPN Eprescribed prescriptions On: 11-Sep-2012 Intent (G8553)By: Amy Wilder LPN Spirometry (68484)By: Evan CAMPBELL, On: 21-Feb-2012 Intent Kalyn Meyer [...] Needed)By: Kalyn Forbes DO, DO, Kathleen Spirometry ([id number])By: Jerson, On: 30-Oct-2010 Intent Brenda ROBLEDO Comments: normal--using advair bid now improved Spirometry ([id number])By: Evna CAMPBELL, On: 15-Oct-2010 Intent Kalyn Meyer DO Comments: severe obstruction but poor tech-- asx and no use of rescue inhaler- but admits doesnt use advair daily 0-- will use bid for 2 weeks then fu to repeat spirometry and see -- if pastoral counselor get away with maintenance qd will try but lets see what bid EKG ([id number])By: Evan CAMPBELL, On: 20-Jul-2010 Intent Kalyn Meyer DO Comments: nsr no acute chg Spirometry ([id number])By: Evan CAMPBELL, On: 08-Oct-2009 Intent Kalyn Meyer DO Comments: obstruction but poor tch EKG ([id number])By: Wily ROBLEDO, On: 30-May-2009 Intent Maria Del Rosario Comments: nsr no acute changes THER/PROPH/DIAG IV INF, INIT On: 07-Mar-2009 Intent ([id number])By: CORBIN Kwok INFUSION, NORMAL SALINE SOLUTION , On: 07-Mar-2009 Intent 250 CC ([id number])By: CORBIN Kwok Rocephin Injection, 2 Gram On: 07-Mar-2009 Intent ([id number])By: CORBIN Kwok Comments: Lot #:[id number] date:mount given:2 grams Route:IV Site given:left hand Given by: casafused without diff patient voiced no complaints INFUSION, NORMAL SALINE SOLUTION , On: 06-Mar-2009 Intent 1000 CC (Special Coverage Instructions Apply. See MCM: 2049) ([id number])By: Lavonne French CNP HYDRATION IV INFUSION, INIT On: 06-Mar-2009 Intent ([id number])By: Lavonne French CNP Rocephin Injection, 2 Gram On: 06-Mar-2009 Intent ([id number])By: Lavonne French CNP Spirometry ([id number])By: Evan CAMPBELL, On: 15-Nov-2008 Intent Kalyn Meyer DO Comments: done-AWpoor effort -- obstruciton -- asx not using resuce inhaler MRI - OtherBy: Kalyn Forbes DO On: 19-Aug-2008 Intent Kalyn Forbes DO Comments: Left Arm Inhaler Demo ([id number])By: Evan CAMPBELL, On: 10-Jul-2008 Intent Kalyn Meyer DO Comments: done km Aerosol Treatment ([id number])By: On: 10-Jul-2008 Intent Kalyn Forbes DO, DO, Comments: done with albuterol 0.83%better air exchange no wheeze Kalyn Solu- Medrol Injection, 125mg On: 10-Jul-2008 Intent ([id number])By: Kalyn Forbes DO Comments: 2ml given im lt hip lot oatd6 exp 5-11 Kalyn Forbes DO Inhaler Demo ([id number])By: Evan CAMPBELL, On: 08-Nov-2007 Intent Kalyn Meyer DO Solu- Medrol Injection, 125mg On: 08-Nov-2007 Intent ([id number])By: Kalyn Forbes DO Comments: 2ml given imk lt hip lot oajmt exp 9-10 Kalyn Forbes DO Aerosol Treatment ([id number])By: On: 08-Nov-2007 Intent Kalyn Forbes DO, DO, Comments: doneMORE AIR EXCHANGE AND NO JUNKY NOISE ANYMORE [facility]yn Radiology - Chest- PA and LatBy: On: 08-Nov-2007 Intent Kalyn Forbes DO, DO, [facility] Spirometry ([id number])By: Evan CAMPBELL, On: 08-Nov-2007 Intent Kalyn Meyer DO Comments: done kmNORMAL Radiology - Foot - LeftBy: Evan On: 03-Aug-2007 Intent , Kalyn Meyer DO Nuclear Stress Test/Stress On: 03-Apr-2007 Intent SPECT/TreadmillBy: Evan CAMPBELL, Comments: heart group to read Kalyn Meyer DO Echo CompleteBy: Evan CAMPBELL, On: 03-Apr-2007 Intent Kalyn Meyer DO Comments: heart group to read EKG ([id number])By: Evan CAMPBELL, On: 03-Apr-2007 Intent Kalyn Meyer DO Comments: nsr no acute ischemic changes SHAVE LESION, On: 31-Oct-2006 Intent FACE/LID/EAR/NOSE/LIP ([id number])By: Kalyn Forbes DO, DO, Kathleen Spirometry ([id number])By: Evan CAMPBELL, On: 19-Sep-2006 Intent Kalyn Meyer DO Comments: moderate obstruction--on no inhalers encouraged her to resume advair discus and will repeat in one month EKG ([id number])By: Evan CAMPBELL, On: 19-Sep-2006 Intent Kalyn Meyer DO Comments: nsr no acute ischemic changes Instructions Name Dates Details Diabetes type 2, uncontrolled : How to [...] Advance Directives Name Dates Details Immunization Registry [place] - Effective on Effective: 25-Aug-201808/25/2018. Expiration date unspecified Encounters Office Visit On: 25-Aug-2018 13:41 Encounter Reason: [...] the patient is following up for inc armond All identified problems below, blood sugar issues, [...] intolerance: had her weekly labs drawn at [facility] [place] and they called stating her sugar was [...] (238.9), ASTHMA, UNSPECIFIED, WITH ACUTE EXACERBATION (493.92), V V72.31 [facility] Office Visit On: [...] [facility] Payers Lisette MENARD/Bobbi Combs; navi guarantor
--- OUTSIDE RECORDS SUMMARY | 2018-11-18 16:29 | XMS RPT_ITS | Continuity of Care Document ---
:1955 Author Organization [facility] Address [address] [facility] [address] [place] [address] Phone Care Team Providers Name Role Phone [...] Dysuria (R30.0, 788.1) Comments: cont to drink ig3uvxrbwy juice Status: Active Eustachian tube dysfunction (H69.80, [...] DO, DO, Kathleen Start : 21-Apr-2018 Active Levaquin 750 MG Oral Tablet 1 (one) Tablet daily for 7 days Quantity: 7 {Tablet} Refills: 0 Ordered:18-Sep-2018 Madhuri De La Paz Start : 18-Sep-2018 Active Lisinopril-Hydrochlorothiazide 20-12.5 MG Oral Tablet 1 [...] days Quantity: 20 {Tablet} Refills: 0 Ordered:23-Apr-2015 Manolo CRAWFORD Monet Start : 23-Apr-2015 End : [...] End : 11-Jul-2015 Inactive Comments:std process DRISDOL, 85785NFMJ (Oral Capsule) 1 Capsule qweek for 360 [...] End : 19-Nov-2011 Inactive Comments:ten VITAMIN D, 53670SOQW (Oral Capsule) 1 q week (85093 U) Inactive VITAMIN D3, 2000UNIT (Oral Capsule) 1 (one) Capsule Capsule qd for 120 days Refills: 0 Ordered:07-Feb-2014 Brenda Arthur LPN Start : 01-Oct-2013 End : 29-Jan-2014 Inactive VITAMIN D3, 12525AAUB (Oral Capsule) 1 Capsule weekly for 0 [...] days Quantity: 30 {Tablet} Refills: 3 Ordered:04-Jan-2014 Evan CAMPBELL KalynGinaKalyn kaba DO Start : 04-Jan-2014 End : 04-Jan-2014 Discontinued [...] and no fever now-called to [facility] in [place] Status: Inactive as of 30-Mar-2013 Cellulitis of [...] WITH Contrast Result: Comments: See Note; NOTES: [facility] Imaging Services [address] [place] [address] Chest WITH Contrast MR#: [id number] Acct: [id number] Name: MARTY LARA Rep #: [id number] : 1955 F 62 From: Artemio Guerra PCP: Kalyn Forbes DO Status: REG CLI Study: Chest WITH Contrast Date of Exam: 09/14/18 Exam# [id number] Ordering Dr: Kalyn Forbes DO STUDY: CT [...] Service support , CC: Kalyn Forbes DO District Court Reporter: Signed 07-Sep-2018 Cerv Spine 2 or 3 Views Result: Comments: See Note; NOTES: [facility] Services [address] [place] [address] Cerv Spine 2 or 3 Views MR#: [id number] Acct: [id number] Name: MARTY LARA Rep #: [id number] : 1955 F 62 From: Aleksandr Vealsquez DO PCP: Kalyn Forbes DO Status: REG CLI Study: Cerv Spine 2 or 3 Views Date of Exam: 09/07/18 Exam# [id number] Ordering Dr: 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 Jones 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: X-RAY - CERVICAL SPINE REASON [...] Velasquez DO at 23:2 3 EST Tel [phone], Service support , CC: JERRELL Jones; Kalyn Forbes DO District Court Reporter: Signed 07-Sep-2018 Cerv Spine 2 or 3 Views Result: Comments: See Note; NOTES: [facility] Imaging Services [address] [place] [address] Cerv Spine 2 or 3 Views MR#: [id number] Acct: [id number] Name: MARTY LARA Rep #: [id number] : 1955 F 62 From: Aleksandr Velasquez DO PCP: Kalyn Forbes DO Status: REG CLI Study: Cerv Spine 2 or 3 Views Date of Exam: 09/07/18 Exam# [id number] Ordering Dr: Brenda Jones STUDY: X-RAY - [...] Velasquez DO at 23:2 3 EST Tel [phone], Service support , CC: JERRELL Forbes DO District Court Reporter: Signed 07-Sep-2018 Shoulder min 2 Views Result: Comments: See Note; NOTES: [facility] Imaging Services [address] [place] [address] Shoulder min 2 Views MR#: [id number] Acct: [id number] Name: MARTY LARA Rep #: [id number] : 1955 F 62 From: Aleksandr Velasquez DO PCP: Kalyn Forbes DO Status: REG CLI Study: Shoulder min 2 Views Date of Exam: 09/07/18 Exam# [id number] Ordering Dr: Brenda Jones STUDY: X-RAY - [...] Aleksandr Velasquez DO at 22:37 EST Tel [phone], Service support 09-05 [phone], CC: JERRELL Jones; Kalyn Forbes DO District Court Reporter: Signed 07-Sep-2018 Shoulder min 2 Views Result: Comments: See Note; NOTES: [facility] Imaging Services [address] [place] [address] Shoulder min 2 Views MR#: [id number] Acct: [id number] Name: AMRTY LARA Rep #: [id number] : 1955 F 62 From: Aleksandr Velasquez DO PCP: Kalyn Forbes DO Status: REG CLI Study: Shoulder min 2 Views Date of Exam: 09/07/18 Exam# [id number] Ordering Dr: Brenda Jones STUDY: X-RAY - [...] Aleksandr Velasquez DO at 22:37 EST Tel [phone], Service support 09-05 [phone], CC: JERRELL Jones; Kalyn Forbes DO District Court Reporter: Signed 04-Apr-2015 Spirometry (81294) Comments: restriction disease-technique dependent Result: 01-Apr-2014 Spirometry (97914) Comments: normal Result: Family History Unknown Family [...] kg/m2 Body Surface Area Calculated 1.87 m2 94-Kxe-249496:06 Temperature 98.8 f Comments: Method: Oral Pulse [...] Description Value Details :57 CREATININE FINGERSTICK Comments: [facility] [place] [address] [place], [place] [id number] EGFR WB 57.0000 mL/min (Abnormal) CREATININE WB 1.0 mg/dL (Normal) Range: 0.55-1.02 49-Lks-791404:29 LIPOPROTEIN, BLD, BY NMR Comments: PATIENT WAS FASTINGPERFORMED BY: [facility] [id number] (53856) LP-IR Score 59 (Abnormal) Comments: INSULIN RESISTANCE MARKER <--Insulin Sensitive Insulin Resistant--> Percentile in Reference PopulationInsulin Resistance ScoreLP-IR Score Low 25th 50th 75th High <27 27 45 63 >63LP-IR Score is inaccurate if patient is non-fasting. .The LP-IR score is a laboratory developed i [facility] that has beenassociated with insulin resistance and [...] were developed and their performance characteristicsdetermined by [employer]. These assays have not been cleared by [...] High > 2000 :42 HgA1C , Office (67669) HgA1C , Office 7.5 % (Abnormal) Range: 4.6 - 7.1 :42 Blood Glucose , Office (97110) Blood Glucose , Office 157 (Normal) :56 HgA1C , Office (69293) HgA1C , Office 6.7 % (Normal) Range: 4.6 - 7.1 :56 Blood Glucose , Office (33169) Blood Glucose , Office 150 (Normal) :42 HgA1C , Office (95895) HgA1C , Office 6.2 % (Normal) Range: 4.6 - 7.1 :19 HgA1C , Office (22823) HgA1C , Office 7.1 % (Normal) Range: 4.6 - 7.1 :19 Blood Glucose , Office (06169) Blood Glucose , Office 89 (Normal) :25 HgA1C , Office (26209) HgA1C , Office 6.9 % (Normal) Range: 4.6 - 7.1 :25 Blood Glucose , Office (36471) Blood Glucose , Office 112 (Normal) :14 HgA1C , Office (41058) HgA1C , Office 6.5 % (Normal) Range: 4.6 - 7.1 94-Xzq-290554:14 Blood Glucose , Office (11083) Blood Glucose , Office 159 (Normal) :48 HgA1C , Office (15365) HgA1C , Office 6.4 % (Normal) Range: 4.6 - 7.1 :48 Blood Glucose , Office (05207) Blood Glucose , Office 91 (Normal) :39 Microscopic Examination Comments: PATIENT WAS FASTINGPERFORMED BY: [employer] Kdrjgl3241 [facility] [id number] Bacteria Few (Normal) Mucus Threads Present (Normal) Epithelial Cells (non renal) 0-10 {/hpf} (Normal) Range: 0 - 10 RBC 0-2 {/hpf} (Normal) Range: 0 - 2 WBC 0-5 {/hpf} (Normal) Range: 0 - 5 :39 CALCIFIDIOL (95134) VIT D 25 Comments: PATIENT WAS FASTINGPERFORMED BY: [employer] Igwbns4047 [facility] [id number] Vitamin D, 25-Hydroxy 37.4 ng/mL (Normal) Range: 30.0-100.0 Comments: Vitamin D deficiency has been defined by the [place] [facility] and an Endocrine Society practice guideline as alevel of serum 25-OH vitamin D less than 20 ng/mL (1,2).The Endocrine Society went on to further define vitamin Dinsufficiency as a level between 21 and 29 ng/mL (2).1. IOM ([place] of Medicine). 2010. Dietary reference intakes for calcium and D. [place]: The National Academies Press.2. Elizabeth MF, Charles NC, Silke BATISTA, et al. Evaluation, treatment, and prevention of vitamin D deficiency: an Endocrine Society clinical practice guideline. JCEM. 2010; 96(7):1911-30. :39 TSH (56175) Comments: PATIENT WAS FASTINGPERFORMED BY: [facility] Jgytso3017 [facility] [id number] TSH 1.340 {uIU/mL} (Normal) Range: 0.450-4.500 :39 URINALYSIS, W/ MICRO (71813) Comments: PATIENT WAS FASTINGPERFORMED BY: FreebaseTrinitas HospitalMmdfct2689 [facility] [id number] Microscopic Examination See below: (Normal) Comments: Microscopic was indicated and was performed. Microscopic Examination MICRON (Normal) Comments: Microscopic follows if indicated. Nitrite, Urine Negative (Normal) Urobilinogen,Semi-Qn 0.2 mg/dL (Normal) Range: 0.2-1.0 Bilirubin Negative (Normal) Occult Blood Negative (Normal) Ketones Negative (Normal) Glucose Trace (Abnormal) Protein Negative (Normal) WBC Esterase Negative (Normal) Appearance Clear (Normal) Urine-Color Yellow (Normal) pH 6.0 (Normal) Range: 5.0-7.5 Specific [place] 1.021 (Normal) Range: 1.005-1.030 :39 MICROALBUMIN: CREATININE RATIO Comments: PATIENT WAS FASTINGPERFORMED BY: FreebaseTrinitas HospitalVvnuiz7960 [facility] [id number] (63628) AND (35767) Microalb/Creat Ratio <3.1 {mg/g_creat} (Normal) Range: 0.0-30.0 Microalbumin, Urine <3.0 ug/mL (Normal) Creatinine, Urine 97.1 mg/dL (Normal) :39 METABOLIC PANEL, COMPREHENSIVE Comments: PATIENT WAS FASTINGPERFORMED BY: FreebaseTrinitas HospitalVjjjeq5032 [facility] [id number] (19383) ALT (SGPT) 40 [iU]/L (Abnormal) Range: 0-32 [...] mg/dL (Abnormal) Range: 65-99 :39 LIPID PANEL (85523) Comments: PATIENT WAS FASTINGPERFORMED BY: [facility] [id number] LDL/HDL Ratio 1.9 {ratio_units} (Normal) Range: 0.0-3.2 [...] DIFF WBC Comments: PATIENT WAS FASTINGPERFORMED BY: [employer]70 [facility] [id number] Information: [id number] (99714) Immature Grans (Abs) 0.0 {x10E3/uL} (Normal) Range: [...] Range: 3.4-10.8 :56 Blood Glucose , Office (25964) Blood Glucose , Office 130 (Normal) 46-Ksy-363432:41 HgA1C , Office (85351) HgA1C , Office 6.8 % (Normal) Range: 4.6 - 7.1 42-Hgd-121071:41 Blood Glucose , Office (90637) Blood Glucose , Office 92 (Normal) 54-Wyb-756339:03 LIPID PANEL (02151) Comments: PATIENT WAS FASTINGPERFORMED BY: LabCoTrinitas HospitalFvdxrc9665 [facility] [id number] Information: [id number] LDL/HDL Ratio 2.4 {ratio_units} (Normal) Range: 0.0-3.2 [...] 203 mg/dL (Abnormal) Range: 100-199 :03 CALCIFIDIOL (22404) VIT D 25 Comments: PATIENT WAS FASTINGPERFORMED BY: LabCoTrinitas HospitalCpyklw2341 [facility] [id number] Vitamin D, 25-Hydroxy 26.2 ng/mL (Abnormal) Range: 30.0-100.0 Comments: Vitamin D deficiency has been defined by the [place] [facility] and an Endocrine Society practice guideline as alevel of serum 25-OH vitamin D less than 20 ng/mL (1,2).The Endocrine Society went on to further define vitamin Dinsufficiency as a level between 21 and 29 ng/mL (2).1. IOM ([place] of Medicine). 2010. Dietary reference intakes for calcium and D. [place]: The National Academies Press.2. Elizabeth MF, Charles LUNDY, Silke BATISTA, et al. Evaluation, treatment, and prevention of vitamin D deficiency: an Endocrine Society clinical practice guideline. JCEM. 2010; 96(7):1911-30. :11 Blood Glucose , Office (09437) Blood Glucose , Office 118 (Normal) :10 HgA1C , Office (37349) HgA1C , Office 6.4 % (Normal) Range: 4.6 - 7.1 :02 Blood Glucose , Office (68551) Blood Glucose , Office 103 (Normal) :02 HgA1C , Office (19083) HgA1C , Office 6.7 % (Normal) Range: 4.6 - 7.1 :25 HgA1C , Office (91691) HgA1C , Office 6.2 % (Normal) Range: 4.6 - 7.1 :25 Blood Glucose , Office (18116) Blood Glucose , Office 135 (Normal) :27 Blood Glucose , Office (14284) Blood Glucose , Office 73 (Normal) :27 HgA1C , Office (63590) HgA1C , Office 5.9 % (Normal) Range: 4.6 - 7.1 :46 HgA1C , Office (16167) HgA1C , Office 5.8 % (Normal) Range: 4.6 - 7.1 :46 Blood Glucose , Office (28332) Blood Glucose , Office 118 (Normal) :58 HgA1C , Office (20928) HgA1C , Office 5.9 % (Normal) Range: 4.6 - 7.1 :58 Blood Glucose , Office (25584) Blood Glucose , Office 75 (Normal) :58 HgA1C , Office (36440) HgA1C , Office 5.6 % (Normal) Range: 4.6 - 7.1 :58 Blood Glucose , Office (69858) Blood Glucose , Office 99 (Normal) :06 [...] CHOL 207 mg/dL (Abnormal) Comments: <200 mg/dL Njaflsnqo856-256 mg/dL Borderline>240 mg/dL High Risk 62-Tww-553614:06 MIACRE MIALB 10.6 mg/L (Normal) tMICROCREAT 8.1 {mg/g_CRE} (Normal) CREU 130.8 mg/dL (Normal) 75-Btb-793607:06 TSH 1.00 {uIU/mL} (Normal) Range: 0.358-3.74 24-Bvl-606436:06 VITD 50.4 mg/mL (Normal) Comments: Vitamin D 25(OH) Status RangeDeficiency <20 ng/mL (50nmol/L)Insuffciency 20 - 30 ng/mL (50 - 75 nmol/L)Sufficiency 30 - 100 ng/mL (75 - 250 nmol/L)Toxicity >100 ng/mL (>250 nmol/L) 5-Jlj-044334:26 URINE KASHIF CULTURE-IDENTIFICATN Comments: PATIENT NOT FASTINGPERFORMED BY: LabCoTrinitas HospitalZiammo5969 [facility] [id number] Information: [id number] (60224) Result 1 BETAGB (Abnormal) Comments: Beta hemolytic [...] (CLSI 2011) Urine Final report (Abnormal) Culture,Comprehensive 9-Aeh-427294:07 Urinalysis, Office (24905) UA - LEUKOCYTE ESTERASE Small (Normal) UA - NITRITE Negative (Normal) URINE UROBILINGN ALEX TIMED Normal mg/dL (Normal) UA - PROTEIN Negative mg/dL (Normal) UA - PH 5 (Abnormal) UA - BLOOD Negative (Normal) UA - SPECIFIC GRAVITY 1.010 (Normal) UA - KETONES Negative mg/dL (Normal) UA - BILIRUBIN Negative (Normal) UA - GLUCOSE Negative (Normal) :06 HgA1C , Office (18137) HgA1C , Office 7.0 % (Normal) Range: 4.6 - 7.1 :06 Blood Glucose , Office (47342) Blood Glucose , Office 82 (Normal) :38 HgA1C , Office (00866) HgA1C , Office 6.4 % (Normal) Range: 4.6 - 7.1 :38 Blood Glucose , Office (83578) Blood Glucose , Office 106 (Normal) :47 [...] 4.2-5.4 WBC 4.4 K/mm3 (Normal) Range: 4.4-11.0 99-Orb-178926:47 CMP GAP 6 (Normal) Range: 5-15 CO2 [...] 126 mg/dLsuggests DIABETES MELLITUS per A.D.A. criteria. 27-Drv-865749:47 LIPID LDL 121 mg/dL (Normal) Range: 0-130 [...] CHOL 198 mg/dL (Normal) Comments: <200 mg/dL Xrkdajmct051-866 mg/dL Borderline>240 mg/dL High Risk :47 MIACRE tMICROCREAT 5.7 {mg/g_CRE} (Normal) MIALB 5.0 mg/L (Normal) CREU 87.7 mg/dL (Normal) 59-Hot-672821:47 TSH 0.62 {uIU/mL} (Normal) Range: 0.358-3.74 70-Gma-697064:47 UAC Comments: How was Urine Obtained? CLEAN [...] - 250 nmol/L)Toxicity >100 ng/mL (>250 nmol/L) 9-Yhy-223860:35 HgA1C , Office (10699) HgA1C , Office 6.1 % (Normal) Range: 4.6 - 7.1 :35 Blood Glucose , Office (89695) Blood Glucose , Office 102 (Normal) :24 HgA1C , Office (73451) HgA1C , Office 5.9 % (Normal) Range: 4.6 - 7.1 :24 Blood Glucose , Office (77781) Blood Glucose , Office 375 (Normal) :13 [...] 126 mg/dLsuggests DIABETES MELLITUS per A.D.A. criteria. 00-Oyj-647455:13 LIPID VLDL 40 mg/dL (Normal) Range: 5-40 [...] CHOL 231 mg/dL (Abnormal) Comments: <200 mg/dL Zbkymsiud486-384 mg/dL Borderline>240 mg/dL High Risk :13 MIACRE tMICROCREAT 7.0 {mg/g_CRE} (Normal) MIALB 9.2 mg/L (Normal) CREU 130.6 mg/dL (Normal) 94-Ykg-774174:13 TSH 0.64 {uIU/mL} (Normal) Range: 0.358-3.74 :13 [...] (Normal) UCLAR Clear (Normal) UCOL Yellow (Normal) 49-Bjx-527114:13 VITD 28.1 ng/mL (Normal) Comments: Vitamin D 25(OH) Status RangeDeficiency <20 ng/mL (50nmol/L)Insufficiency 20 - 30 ng/mL (50 - 75 nmol/L)Sufficiency 30 - 100 ng/mL (75 - 250 nm ol/L)Toxicity >100 ng/mL (250 nmol/L) :40 HgA1C , Office (44578) HgA1C , Office 7.1 % (Normal) Range: 4.6 - 7.1 :40 Blood Glucose , Office (77418) Blood Glucose , Office 123 (Normal) 76-Kzw-500822:05 Blood Glucose , Office (80472) Blood Glucose , Office 176 (Normal) :43 HEPATIC FUNCTION PANEL Comments: PATIENT NOT FASTINGPERFORMED BY: LabCoTrinitas HospitalTxiuko5164 [facility] [id number] Information: [id number] (70568) ALT (SGPT) 146 [iU]/L (Abnormal) Range: 0-32 AST (SGOT) 101 [iU]/L (Abnormal) Range: 0-40 Alkaline Phosphatase, S 94 [iU]/L (Normal) Range: 25-150 Bilirubin, Direct 0.20 mg/dL (Normal) Range: 0.00-0.40 Albumin, Serum 4.5 g/dL (Normal) Range: 3.5-5.5 Bilirubin, Total 0.6 mg/dL (Normal) Range: 0.0-1.2 Protein, Total, Serum 7.1 g/dL (Normal) Range: 6.0-8.5 :14 Blood Glucose , Office (37051) Blood Glucose , Office 193 (Normal) :11 MICROALBUMIN: CREATININE RATIO Comments: PATIENT WAS FASTINGPERFORMED BY: [facility]baseUniversity [facility] New Mexico HospitalsLxhzpq5512 [facility] [id number] (38648) AND (51026) Microalb/Creat Ratio 3.8 {mg/g_creat} (Normal) Range: 0.0-30.0 Microalbumin, Urine 6.3 ug/mL (Normal) Range: 0.0-17.0 Creatinine, Urine 167.6 mg/dL (Normal) Range: 15.0-278.0 :11 METABOLIC PANEL, COMPREHENSIVE Comments: PATIENT WAS FASTINGPERFORMED BY: [employer]6370 [facility] [id number] (80354) ALT (SGPT) 59 [iU]/L (Abnormal) Range: 0-32 [...] Glucose, Serum 177 mg/dL (Abnormal) Range: 65-99 91-Jox-75439:11 CBC WITH MANUAL DIFF Comments: PATIENT WAS FASTINGPERFORMED BY: [facility]6370 [facility] [id number] Information: [id number] (56443) Immature Grans (Abs) 0.0 {x10E3/uL} (Normal) Range: [...] {x10E3/uL} (Abnormal) Range: 4.0-10.5 :11 LIPID PANEL (61936) Comments: PATIENT WAS FASTINGPERFORMED BY: K1 [facility]6370 [facility] [id number] LDL/HDL Ratio 2.9 {ratio_units} (Normal) Range: 0.0-3.2 LDL Cholesterol Calc 153 mg/dL (Abnormal) Range: 0-99 VLDL Cholesterol Josep 32 mg/dL (Normal) Range: 5-40 HDL Cholesterol 53 mg/dL (Normal) Comments: According to ATP-III Guidelines, HDL-C >59 mg/dL is considered anegative risk factor for CHD. Triglycerides 162 mg/dL (Abnormal) Range: 0-149 Cholesterol, Total 238 mg/dL (Abnormal) Range: 100-199 :11 Vitamin D Hydroxy (28087) Comments: PATIENT WAS FASTINGPERFORMED BY: LabKolo TechnologiesTrinitas HospitalJglgjx1316 [facility] [id number] Vitamin D, 25-Hydroxy 63.5 ng/mL (Normal) Range: 30.0-100.0 Comments: Vitamin D deficiency has been defined by the [place] [employer] and an Endocrine Society practice guideline as alevel of serum 25-OH vitamin D less than 20 ng/mL (1,2).The Endocrine Society went on to further define vitamin Dinsufficiency as a level between 21 and 29 ng/mL (2).1. IOM ([place] of Medicine). 2010. Dietary reference intakes for calcium and D. [place]: The National Academies Press.2. Elizabeth MF, Charles NC, Silke BATISTA, et al. Evaluation, treatment, and prevention of vitamin D deficiency: an Endocrine Society clinical practice guideline. JCEM. 2010; 96(7):1911-30. :10 HgA1C , Office (17867) HgA1C , Office 5.8 % (Normal) Range: 4.6 - 7.1 :10 Blood Glucose , Office (13358) Blood Glucose , Office 194 (Normal) Comments: fasting :15 HgA1C , Office (02976) HgA1C , Office 5.7 % (Normal) Range: 4.6 - 7.1 :15 Blood Glucose , Office (79293) Blood Glucose , Office 178 (Normal) :15 Vitamin D Hydroxy (44076) Comments: PATIENT NOT FASTINGPERFORMED BY: [facility] Fekbxo6235 [facility] [id number] Information: [id number] Vitamin D, 25-Hydroxy 60.0 ng/mL (Normal) Range: 30.0-100.0 Comments: Vitamin D deficiency has been defined by the [place] of[place]icine and an Endocrine Society practice guideline as alevel of serum 25-OH vitamin D less than 20 ng/mL (1,2).The Endocrine Society went on to further define vitamin Dinsufficiency as a level between 21 and 29 ng/mL (2).1. IOM ([place] of Medicine). 2010. Dietary reference intakes for calcium and D. [place]: The National Academies Press.2. Elizabeth MF, Charles NC, Silke BATISTA, et al. Evaluation, treatment, and prevention of vitamin D deficiency: an Endocrine Society clinical practice guideline. JCEM. 2010; 96(7):1911-30. :54 METABOLIC PANEL, Comments: PATIENT WAS FASTINGPERFORMED BY: [facility] Gubeuw7957 [facility] [id number] Information: [id number] COMPREHENSIVE (06468) ALT (SGPT) 24 [iU]/L (Normal) Range: 0-40 [...] mg/dL (Abnormal) Range: 65-99 :54 LIPID PANEL (37795) Comments: PATIENT WAS FASTINGPERFORMED BY: [employer] [id number] LDL/HDL Ratio 2.5 {ratio_units} (Normal) Range: 0.0-3.2 LDL Cholesterol Calc 144 mg/dL (Abnormal) Range: 0-99 VLDL Cholesterol Josep 28 mg/dL (Normal) Range: 5-40 HDL Cholesterol 58 mg/dL (Normal) Comments: According to ATP-III Guidelines, HDL-C >59 mg/dL is considered anegative risk factor for CHD. Triglycerides 141 mg/dL (Normal) Range: 0-149 Cholesterol, Total 230 mg/dL (Abnormal) Range: 100-199 :54 Vitamin D Hydroxy (95073) Comments: PATIENT WAS FASTINGPERFORMED BY: [employer]6370 [facility] [id number] Vitamin D, 25-Hydroxy 28.0 ng/mL (Abnormal) Range: 30.0-100.0 Comments: Vitamin D deficiency has been defined by the [place] of[place]icine and an Endocrine Society practice guideline as alevel of serum 25-OH vitamin D less than 20 ng/mL (1,2).The Endocrine Society went on to further define vitamin Dinsufficiency as a level between 21 and 29 ng/mL (2).1. IOM ([place] of Medicine). 2010. Dietary reference intakes for calcium and D. [place]: The National Academies Press.2. Elizabeth MF, Charles LUNDY, Silke BATISTA, et al. Evaluation, treatment, and prevention of vitamin D deficiency: an Endocrine Society clinical practice guideline. JCEM. 2010; 96(7):1911-30. 24-Qoc-386121:35 HgA1C , Office (33154) HgA1C , Office 5.6 % (Normal) Range: 4.6 - 7.1 43-Nmc-589815:35 Blood Glucose , Office (04703) Blood Glucose , Office 129 (Normal) :45 CBC With Differential/Platelet Comments: Test(s) WBC; Platelets; Neutrophils (Absolute) called to YUNIER Jenkins on 11/29/2011 at 14:08 ESTPATIENT WAS FASTINGPERFORMED BY: [facility] [employer]4882 [facility] [id number] Hematology Comments: Note: (Normal) Comments: Manual differential [...] 3.80-5.10 WBC 1.4 {x10E3/uL} (Abnormal) Range: 4.0-10.5 67-Hlr-49685:45 Immature Cells Comments: Test(s) WBC; Platelets; Neutrophils (Absolute) called to [place] on 11/29/2011 at 14:08 ESTPATIENT WAS FASTINGPERFORMED BY: [facility] [id number] Blasts/blast like cells 21 % (Abnormal) Range: 0 - 0 :45 Lipid Panel With LDL/HDL Comments: Test(s) WBC; Platelets; Neutrophils (Absolute) called to [place] on 11/29/2011 at 14:08 ESTPATIENT WAS FASTINGPERFORMED BY: [employer]6370 [facility] [id number] Ratio LDL/HDL Ratio 1.2 {ratio_units} (Normal) Range: [...] Test(s) WBC; Platelets; Neutrophils (Absolute) called to [place] on 11/29/2011 at 14:08 ESTPATIENT WAS FASTINGPERFORMED BY: [employer]70 [facility] [id number] Comments/Recommendations Comment: (Normal) Comments: 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 Suggest bone marrowevaluation and flow cytometry and cytogenetics. Pathologist Comment: (Normal) Comments: This case was reviewed by Lila Kingsley M.D. PLTs Comment: (Normal) Comments: Thrombocytopenia.Few large platelets were observed. RBC Comment: (Normal) Comments: Decreased.Slight anisocytosis.Poikilocytosis.Rare nucleated RBC seen. WBC Comment: (Normal) Comments: Leukopenia. :54 HgA1C , Office (64120) HgA1C , Office 6.6 % (Normal) Range: 4.6 - 7.1 :54 Blood Glucose , Office (61020) Blood Glucose , 197 (Normal) Office Vitamin D, 23.4 ng/mL Comments: Test(s) WBC; Neutrophils (Absolute) called to Dr Wilson on 11/18/2011 at 05:44 ESTPATIENT NOT FASTINGPERFORMED BY: [employer] Hrpwwf9032 [facility] [id number] :05 25-Hydroxy (Abnormal) Range: 30.0-100.0 Comments: Vitamin D deficiency has been defined by the [place] Healthcine and an Endocrine Society practice guideline as alevel of serum 25-OH vitamin D less than 20 ng/mL (1,2).The Endocrine Society went on to further define vitamin Dinsufficiency as a level between 21 and 29 ng/mL (2).1. IOM ([place] of Medicine). 2010. Dietary reference intakes for calcium and D. [place]: The National Academies Press.2. Elizabeth MF, Charles NC, Silke BATISTA, et al. Evaluation, treatment, and prevention of vitamin D deficiency: an Endocrine Society clinical practice guideline. JCEM. 2010; 96(7):1911-30. 09-Cnk-549429:05 BLD CNT, MANUAL CELL COUNT, Comments: Test(s) WBC; Neutrophils (Absolute) called to Dr Wilson on 11/18/2011 at 05:44 ESTPATIENT NOT FASTINGPERFORMED BY: [employer] [id number] [facility] [id number] EACH ([id number]) Hematology Comments: Note: (Normal) Comments: Verified by [...] 3.80-5.10 WBC 1.2 {x10E3/uL} (Abnormal) Range: 4.0-10.5 95-Oow-028432:05 EBV Panel (18214) Comments: Test(s) WBC; Neutrophils (Absolute) called to Dr Wilson on 11/18/2011 at 05:44 ESTPATIENT NOT FASTINGPERFORMED BY: [facility] [id number] Interpretation: SPRCS (Normal) Comments: EBV Interpretation Chart [...] <0.9 Equivocal 0.9 - 1.0 Positive >1.0 76-Kal-85823:55 CBCMD PATHR Reviewed (Normal) Comments: Leukopenia and [...] D deficiency has been defined by the [place] [facility] and an Endocrine Society practice guideline as alevel of serum 25-OH vitamin D less than 20 ng/mL (1,2).The Endocrine Society went on to further define vitamin Dinsufficiency as a level between 21 and 29 ng/mL (2).1. IOM ([place] of Medicine). 2010. Dietary reference intakes for calcium and D. [place]: The National Academies Press.2. Elizabeth MF, Charles NC, Silke BATISTA, et al. Evaluation, treatment, and prevention of vitamin D deficiency: an Endocrine Society clinical practice guideline. JCEM. 2010; 96(7): 1911-30. .Effective November 01, 2011, Vitamin D, 25 Hydroxy specimen requirements will change to serum only.Performed at: - [address] [id number] Director: Lila Kingsley MD, Phone: [phone] :[phone] GLU 158 mg/dL (Abnormal) Comments: PATIENT [...] as detailed above. Dictated on 05/31/[address] MDranscribed on 06/01/111702 by ITS IMPORTSign by Mitch Street MD on 06/01/111702 Sign by: Mitch Street MD 23-Pno-508472:20 HgA1C , Office (45649) HgA1C , Office 6.7 % (Normal) Range: 4.6 - 7.1 68-Gqg-165471:20 Blood Glucose , Office (86410) Blood Glucose , Office 175 (Normal) 4-Ohw-753630:00 LIVER D BILI 0.11 mg/dL (Normal) Range: [...] per A.D.A. criteria. :22 HgA1C , Office (95195) HgA1C , Office 6.7 % (Normal) Range: 4.6 - 7.1 :22 Blood Glucose , Office (98240) Blood Glucose , Office 205 (Normal) 00-Tzm-963504:00 CHEST WITH CONTRAST Radiology Report See Note [...] 11/19/10 1326 Sign by: JAMARI HARRIS MD 32-Mjo-418719:47 HgA1C , Office (49161) HgA1C , Office 6.8 % (Normal) Range: 4.6 - 7.1 :47 Blood Glucose , Office (55969) Blood Glucose , Office 175 (Normal) :54 [...] 0.77 {uIU/mL} (Normal) Range: 0.358-3.74 :54 VITD 70984 39.5 pg/mL (Normal) Range: 10.0-75.0 Comments: Performed at: - [facility] [id number] Director: Madi Chandler MD, Phone: [phone] HgA1C , Office (81175) HgA1C , Office 6.8 % (Normal) Range: 4.6 - 7.1 :52 Blood Glucose , Office (47922) Blood Glucose , Office 117 (Normal) :35 [...] mg/dL High Risk :55 HgA1C , Office (44084) Comments: done km HgA1C , Office 6.3 % (Normal) Range: 4.6 - 7.1 :55 Blood Glucose , Office (94134) Comments: done km Blood Glucose , Office 111 (Normal) :10 HgA1C , Office (59850) Comments: done km HgA1C , Office 6.6 % (Normal) Range: 4.6 - 7.1 :10 Blood Glucose , Office (50062) Comments: done km Blood Glucose , Office [...] 4.2-5.4 WBC 5.5 K/mm3 (Normal) Range: 4.4-11.0 6-Imq-158514:00 COMP METABOLIC ALK P 94 U/L (Normal) [...] <126 mg/dLsuggests IMPAIRED HOMEOSTASIS per A.D.A. criteria. 9-Sei-830674:00 LIPID CHOL 129 mg/dL (Normal) Comments: <200 mg/dL Vjcdkpbdz604-860 mg/dL Borderline>240 mg/dL High Risk HDL 46 mg/dL (Normal) Comments: Reference RangeHDL <40 mg/dL Low HDL CholesterolHDL >or= 60 mg/dL High HDL Cholesterol LDL 69 mg/dL (Normal) Range: 0-130 TRIG 69 mg/dL (Normal) Comments: Serum Triglycerides Reference IntervalNormal <150 mg/dLBorderline high 150 - 199 mg/dLHigh 200 - 499 mg/ dLVery High > or = 500 mg/dL VLDL 14 mg/dL (Normal) Range: 5-40 6-Zot-977396:00 MICROALB:CRE UR MALB:CREAT 3.4 {mg/g_CRE} (Normal) MICROALBUMIN,UR 6.9 mg/L (Normal) UR CREAT 199.6 mg/dL (Normal) 6-Bru-169972:00 NMR LIPOPROFILE HDL SIZE 8.5 nm (Abnormal) [...] RISK MARKERS<--Insulin Sensitive Insulin Resistant-->Percentile in [facility] PopulationLarge VLDL-P Low 25th 50th 75th [...] High<27 27 45 63 >63 Performed at: [facility] [address] [place], [place] [id number] Director: Kirit Venegas PhD SMALL LDL-P 889 [...] (Normal) Range: 0.358-3.74 :44 HgA1C , Office (42882) Comments: done HgA1C , Office 7.3 % (Abnormal) Range: 4.6 - 7.1 :44 Blood Glucose , Office (62687) Comments: done Blood Glucose , Office 153 (Normal) :59 Blood Glucose , Office (17895) Blood Glucose , Office 102 (Normal) :59 HgA1C , Office (84978) HgA1C , Office 6.5 % (Normal) Range: [...] (Normal) Range: 0.358-3.74 :56 HgA1C , Office (64531) HgA1C , Office 6.4 % (Normal) Range: 4.6 - 7.1 :56 Blood Glucose , Office (35873) Blood Glucose , Office 235 (Normal) :55 HgA1C , Office (06956) Comments: done km HgA1C , Office 6.7 % (Normal) Range: 4.6 - 7.1 :55 Blood Glucose , Office (52007) Comments: done Blood Glucose , Office 123 (Normal) :54 UPPER EXT/NO JT W/O CONTRAST Radiology Report See Note (Normal) Comments: Exam Number: [id number] MRI LEFT UPPER EXTREMITY ON THE OPEN [...] JAMARI TRAN M.D. :02 HgA1C , Office (11825) HgA1C , Office 6.0 % (Normal) Range: 4.6 - 7.1 :02 Blood Glucose , Office (31008) Blood Glucose , Office 151 (Normal) :33 HgA1C , Office (66870) HgA1C , Office 6.3 % (Normal) Range: 4.6 - 7.1 Comments: :33 Blood Glucose , Office (57045) Blood Glucose , Office 136 (Normal) Comments: [...] (Normal) Range: 0.34-4.82 :58 HgA1C , Office (55976) HgA1C , Office 5.9 % (Normal) Range: [...] :39 TSH 0.70 {uIU/mL} (Normal) Range: 0.34-4.82 30-Gcw-688907:57 CHEST, PA AND LATERAL Radiology Report See Note (Normal) Comments: Exam Number: [id number] PA AND LATERAL CHEST HISTORY Being done for cough. Cardiac configuration is normal. No acute infiltrate, effusion, orpneumothorax is identified. IMPRESSIONNo acu te change no marion in the lungs. Reported By: LESLIE VOSS M.D. 89-Cxx-744557:19 HgA1C , Office (71170) Comments: done km HgA1C , Office 6.0 % (Normal) Range: 4.6 - 7.1 54-Afc-215520:19 Blood Glucose , Office (37945) Comments: done km Blood Glucose , Office 93 (Normal) :12 FOOT,MIN 3 VIEWS Radiology Report See Note (Normal) Comments: Exam Number: [id number] LEFT FOOT, 3 VIEWS HISTORYPain. TECHNIQUEAP, lateral, [...] metatarsal head. Reported By: LESLIE VOSS M.D. 9-Hkj-678558:11 LIPID CHOL 205 mg/dL (Abnormal) Comments: <200 [...] mg/dL VLDL 15 mg/dL (Normal) Range: 5-40 3-Jkf-160013:15 HgA1C , Office (71564) Comments: wf HgA1C , Office 6.0 % (Normal) Range: 4.6 - 7.1 7-Pot-514290:15 Blood Glucose , Office (90692) Comments: Blood Glucose , Office 90 (Normal) 01-Aug-20078:10 LIPID PANEL (43926) Comments: do in 3mo; PATIENT WAS FASTINGClinical Information: ADD DRAW FEE [id number] ADD J0 3370 PERFORMED BY: GURDEEP [facility] [id number] [facility] [id number] Cholesterol, Total 227 mg/dL (Abnormal) Range: 100-199 Comment SPRCS (Normal) Comments: If initial LDL-cholesterol result is >100 mg/dL, assess forrisk factors. HDL Cholesterol 46 mg/dL (Normal) Range: 40-59 LDL Cholesterol Calc 165 mg/dL (Abnormal) Range: 0-99 LDL/HDL Ratio 3.6 {ratio_units} (Abnormal) Range: 0.0-3.2 Triglycerides 79 mg/dL (Normal) Range: 0-149 VLDL Cholesterol Josep 16 mg/dL (Normal) Range: 5-40 :55 Blood Glucose , Office (12506) Comments: done Blood Glucose , Office 123 (Normal) :55 HgA1C , Office (44251) Comments: done HgA1C , Office 7.7 % (Abnormal) Range: 4.6 - 7.1 :55 GLUP 343 mg/dL (Abnormal) Comments: GLU,2HPPG 75gm GLUC PPG GLUP from 0825:[id number]. Comments: Glucose result greater than or equal to 200 mg/dLsuggests DIABETES MELLITUS per A.D.A. criteria. 21-Lfc-605085:05 MICROALBUMIN,UR 17.2 mg/L (Normal) :05 ROUTINE UA [...] (Normal) Range: 0.2 - 1.0 :44 TYESHA-D [id number] TYESHA-DIRECT 57 U/mL (Normal) Range: 0-99 Comments: [...] {IU/mL} (Normal) Range: 0.0-13.9 Comments: Performed At: [facility] [place] [id number] :44 TSH 0.76 {uIU/mL} (Normal) Range: 0.34-4.82 :46 MYOCARD PERF SPECT REST/STRESS Radiology Report See Note (Normal) Comments: Exam Number: [id number] MYOCARDIAL PERFUSION SCAN 13.8 millicuries of Tc99m Sestamibi was injected at rest. The patientthen exercised according to the regular Aguilar protocol for 6 minutesand 5 seconds a ttaining 97% of maximum predicted heart rate and workload of 7.1 METs. At peak exercise, 36.0 millicuries of Ac90sJrtxvzptk was injected. Stress images were then obtained. [...] LEUKEMIA, PLASMA CELL IN REMISSION : Reviewed [employer] Letter Indication: LEUKEMIA, PLASMA CELL IN REMISSION [...] LEUKEMIA, PLASMA CELL IN REMISSION : Reviewed [employer] Letter Indication: LEUKEMIA, PLASMA CELL IN REMISSION [...] LEUKEMIA, PLASMA CELL IN REMISSION : Reviewed [employer] Miller Letter Indication: LEUKEMIA, PLASMA CELL IN REMISSION Asthma : Continue Current Prescription(s) Indication: Asthma Mixed hyperlipidemia : Cholesterol mgmt Indication: Mixed hyperlipidemia Controlled diabetes mellitus type II without complication : Diabetes Mellitus: Type 2 *: diabetes mellitus Indication: Controlled diabetes mellitus type II without complication LEUKEMIA, PLASMA CELL IN REMISSION : Reviewed [employer] Miller Letter Indication: LEUKEMIA, PLASMA CELL IN REMISSION [...] and Vomiting Nausea and Vomiting : Reviewed [employer] Letter Indication: Nausea and Vomiting Nausea and [...] LEUKEMIA, PLASMA CELL IN REMISSION : Reviewed [employer] Letter Indication: LEUKEMIA, PLASMA CELL IN REMISSION Vitamin D deficiency, unspecified : Reviewed Lab Indication: Vitamin D deficiency, unspecified Controlled diabetes mellitus type II without complication : Diabetes Mellitus: Type 2 *: high blood glucose Indication: Controlled diabetes mellitus type II without complication Controlled diabetes mellitus type II without complication : Reviewed [employer] Miller Letter Indication: Controlled diabetes mellitus type II [...] Hyperlipidemia Planned Observations LIPOPROTEIN, BLD, BY NMR (35618)Indication: Mixed hyperlipidemia On: 70-Nji-448421:54 Request CALCIFIDIOL (28635) VIT D 25Indication: Vitamin D deficiency, unspecified On: :54 Request TSH (90713)Indication: Controlled diabetes mellitus type II without complication On: :53 Request URINALYSIS, W/ MICRO (18541)Indication: Controlled diabetes mellitus type II without complication On: :53 Request MICROALBUMIN: CREATININE RATIO (67728) AND (26969)Indication: Controlled diabetes mellitus type II without complication On: :53 Request METABOLIC PANEL, COMPREHENSIVE (03280)Indication: Controlled diabetes mellitus type II without complication On: :53 Request CBC W/AUTO DIFF WBC (99405)Indication: Controlled diabetes mellitus type II without complication On: :53 Request HGB A1C (10271)Indication: Diabetes type 2, uncontrolled On: 86-Kdt-876325:41 Request MICROALBUMIN: CREATININE RATIO (46808) AND (78884)Indication: Hypertension, benign On: 00-Mqq-837222:03 Request URINALYSIS (98109)Indication: Hypertension, benign On: 18-Vej-515024:03 Request Metabolic Panel, Comprehensive (15553)Indication: Hypertension, benign On: 46-Wkh-850151:03 Request TSH (86088)Indication: Hypertension, benign On: 33-Liz-528637:03 Request CALCIFEDIOL (67468)Indication: Vitamin D deficiency, unspecified On: 99-Hgi-672947:03 Request CBC WITH MANUAL DIFF (85055)Indication: Mixed hyperlipidemia On: 58-Hru-066299:02 Request Lipid Panel (38433)Indication: Mixed hyperlipidemia On: 57-Wyh-850054:02 Request HGB A1C (99799)Indication: Diabetes type 2, uncontrolled On: 75-Kxj-198078:02 Request CALCIFEDIOL (57481)Indication: Vitamin D deficiency, unspecified On: 8-Eeu-396893:59 Request HGB A1C (77230)Indication: Controlled diabetes mellitus type II without complication On: 5-Poa-938014:42 Request CALCIFIDIOL (67406) VIT D 25Indication: Vitamin D deficiency, unspecified On: :32 Request TSH (67241)Indication: Controlled diabetes mellitus type II without complication On: :32 Request URINALYSIS, W/ MICRO (48050)Indication: Controlled diabetes mellitus type II without complication On: :32 Request MICROALBUMIN: CREATININE RATIO (52573) AND (10603)Indication: Controlled diabetes mellitus type II without complication On: :32 Request METABOLIC PANEL, COMPREHENSIVE (57981)Indication: Controlled diabetes mellitus type II without complication On: :32 Request LIPID PANEL (88478)Indication: Controlled diabetes mellitus type II without complication On: :32 Request CBC W/AUTO DIFF WBC (28198)Indication: Controlled diabetes mellitus type II without complication On: :32 Request TSH (52551)Indication: Mixed hyperlipidemia On: :55 Request URINALYSIS, W/ MICRO (11144)Indication: Controlled diabetes mellitus type II without complication On: :55 Request MICROALBUMIN: CREATININE RATIO (97442) AND (35825)Indication: Controlled diabetes mellitus type II without complication On: :55 Request CBC W/AUTO DIFF WBC (63427)Indication: Controlled diabetes mellitus type II without complication On: :52 Request METABOLIC PANEL, COMPREHENSIVE (34002)Indication: Controlled diabetes mellitus type II without complication On: :52 Request CALCIFIDIOL (62082) VIT D 25Indication: Vitamin D deficiency, unspecified On: :52 Request LIPID PANEL (03981)Indication: Mixed hyperlipidemia On: 34-Lbn-452727:52 Request CALCIFIDIOL (20740) VIT D 25Indication: Vitamin D deficiency, unspecified On: :32 Request TSH (51966)Indication: Controlled diabetes mellitus type II without complication On: :32 Request URINALYSIS, W/ MICRO (09871)Indication: Controlled diabetes mellitus type II without complication On: :32 Request MICROALBUMIN: CREATININE RATIO (57325) AND (62288)Indication: Controlled diabetes mellitus type II without complication On: :32 Request METABOLIC PANEL, COMPREHENSIVE (92767)Indication: Controlled diabetes mellitus type II without complication On: :32 Request CBC W/AUTO DIFF WBC (34716)Indication: Controlled diabetes mellitus type II without complication On: :32 Request TSH (06790)Indication: Diabetes type 2, uncontrolled On: :28 Request URINALYSIS, W/ MICRO (11946)Indication: Diabetes type 2, uncontrolled On: :28 Request MICROALBUMIN: CREATININE RATIO (90695) AND (74025)Indication: Diabetes type 2, uncontrolled On: :28 Request METABOLIC PANEL, COMPREHENSIVE (15902)Indication: Diabetes type 2, uncontrolled On: : Request LIPID PANEL (02818)Indication: Mixed hyperlipidemia On: :27 Request CBC W/AUTO DIFF WBC (52301)Indication: Diabetes type 2, uncontrolled On: : Request CALCIFIDIOL (73026) VIT D 25Indication: Vitamin D deficiency, unspecified On: 38-Ezj-881962:27 Request Vitamin D Hydroxy (07814)Indication: Vitamin D deficiency, unspecified On: 2-Ftk-705220:46 Request TSH (01145)Indication: Controlled diabetes mellitus type II without complication On: 2-Rdu-979464:17 Request URINALYSIS, W/ MICRO (39432)Indication: Hypertension On: 2-Jha-754939:17 Request MICROALBUMIN: CREATININE RATIO (68606) AND (71840)Indication: Controlled diabetes mellitus type II without complication On: 3-Mde-118642:17 Request METABOLIC PANEL, COMPREHENSIVE (16561)Indication: Hypertension On: 0-Jjj-054622:17 Request LIPID PANEL (25464)Indication: Hypertension On: 0-Zcz-913754:17 Request CBC with auto diff (00074)Indication: Hypertension On: 7-Ihu-327543:17 Request Vitamin D Hydroxy (97245)Indication: Vitamin D deficiency, unspecified On: 5-Vvj-399077:17 Request Vitamin D Hydroxy (11716)Indication: Controlled diabetes mellitus type II without complication On: 1-Wzm-494860:57 Request TSH (88084)Indication: Controlled diabetes mellitus type II without complication On: :57 Request URINALYSIS, W/ MICRO (70004)Indication: Controlled diabetes mellitus type II without complication On: 4-Cxj-984884:57 Request MICROALBUMIN: CREATININE RATIO (19400) AND (72587)Indication: Controlled diabetes mellitus type II without complication On: 8-Sbu-249323:57 Request METABOLIC PANEL, COMPREHENSIVE (59532)Indication: Controlled diabetes mellitus type II without complication On: :57 Request LIPID PANEL (16959)Indication: Mixed hyperlipidemia On: :57 Request CBC W/AUTO DIFF WBC (15334)Indication: Controlled diabetes mellitus type II without complication On: 2-Gjh-786690:56 Request Vitamin D Hydroxy (67747)Indication: Vitamin D deficiency, unspecified On: 2-Cjc-425934:01 Request LIPID PANEL (46633)Indication: Vitamin D deficiency, unspecified On: 6-Cpl-316175:01 Request TSH (78149)Indication: Diabetes type 2, uncontrolled On: 3-Flx-286690:00 Request URINALYSIS, W/ MICRO (16433)Indication: Diabetes type 2, uncontrolled On: 1-Lyk-387646:00 Request MICROALBUMIN: CREATININE RATIO (53202) AND (89006)Indication: Diabetes type 2, uncontrolled On: 2-Icj-380706:00 Request METABOLIC PANEL, COMPREHENSIVE (16203)Indication: Diabetes type 2, uncontrolled On: 3-Oov-133342:00 Request CBC WITH MANUAL DIFF (59821)Indication: Diabetes type 2, uncontrolled On: 6-Cej-137535:00 Request CALCIFIDIOL (79320) VIT D 25Indication: Vitamin D deficiency, unspecified On: 9-Kkl-348241:55 Request Vitamin D Hydroxy (44843)Indication: Vitamin D deficiency, unspecified On: :13 Request TSH (28063)Indication: Diabetes type 2, uncontrolled On: 6-Mjk-784266:13 Request URINALYSIS, W/ MICRO (82447)Indication: Diabetes type 2, uncontrolled On: 0-Bwd-645242:13 Request MICROALBUMIN: CREATININE RATIO (44006) AND (43387)Indication: Diabetes type 2, uncontrolled On: 6-Hcm-257633:13 Request METABOLIC PANEL, COMPREHENSIVE (02010)Indication: Diabetes type 2, uncontrolled On: :13 Request CBC WITH MANUAL DIFF (92005)Indication: Diabetes type 2, uncontrolled On: :13 Request LIPID PANEL (75346)Indication: Diabetes type 2, uncontrolled On: :13 Request Vitamin D Hydroxy (14528)Indication: Vitamin D deficiency, unspecified On: 2-Ozj-397551:00 Request TSH (14987)Indication: Diabetes type 2, uncontrolled On: 0-Izr-284366:59 Request URINALYSIS, W/ MICRO (46522)Indication: Diabetes type 2, uncontrolled On: :59 Request MICROALBUMIN: CREATININE RATIO (03666) AND (82050)Indication: Diabetes type 2, uncontrolled On: :59 Request METABOLIC PANEL, COMPREHENSIVE (30486)Indication: Diabetes type 2, uncontrolled On: :59 Request LIPID PANEL (23993)Indication: Diabetes type 2, uncontrolled On: :59 Request CBC WITH MANUAL DIFF (77273)Indication: Diabetes type 2, uncontrolled On: 2-Zfh-010898:59 Request Lipid Panel (30773)Indication: Vitamin D deficiency, unspecified On: :12 Request HEPATIC FUNCTION PANEL (62826)Indication: Vitamin D deficiency, unspecified On: :12 Request LIPID PANEL (29221)Indication: Vitamin D deficiency, unspecified On: 8-Jaf-205566:04 Request CBC with manual diff (48508)Indication: Leukopenia On: 90-Zeu-817965:14 Request VITAMIN B12 AND FOLATES (69884)Indication: Leukopenia On: 90-Bio-652652:14 Request TSH (19706)Indication: Diabetes type 2, uncontrolled On: :42 Request URINALYSIS, W/ MICRO (66421)Indication: Diabetes type 2, uncontrolled On: 27-Xvo-893354:42 Request MICROALBUMIN: CREATININE RATIO (01983) AND (10274)Indication: Diabetes type 2, uncontrolled On: 95-Typ-099085:42 Request METABOLIC PANEL, COMPREHENSIVE (83721)Indication: Diabetes type 2, uncontrolled On: : Request CBC WITH MANUAL DIFF (66472)Indication: Diabetes type 2, uncontrolled On: :42 Request CALCIFIDIOL (83512) VIT D 25Indication: Vitamin D deficiency, unspecified On: :42 Request LIPID PANEL (55780)Indication: Mixed hyperlipidemia On: 06-Olf-819683:06 Request TSH (71867)Indication: Diabetes type 2, uncontrolled On: :33 Request MICROALBUMIN: CREATININE RATIO (22714) AND (72587)Indication: Diabetes type 2, uncontrolled On: : Request METABOLIC PANEL, COMPREHENSIVE (50431)Indication: Diabetes type 2, uncontrolled On: : Request LIPOPROTEIN, BLD, BY NMR (33591)Indication: Diabetes type 2, uncontrolled On: : Request LIPID PANEL (83608)Indication: Diabetes type 2, uncontrolled On: : Request CBC WITH MANUAL DIFF (96839)Indication: Diabetes type 2, uncontrolled On: : Request LIPID PANEL (46648)Indication: Mixed hyperlipidemia On: : Request LIPOPROTEIN, BLD, BY NMR (85868)Indication: Mixed hyperlipidemia On: : Request Comments: DO IN 3 MONTHS TSH (96569)Indication: Controlled diabetes mellitus type II without complication On: :34 Request MICROALBUMIN: CREATININE RATIO (46643) AND (21775)Indication: Controlled diabetes mellitus type II without complication On: :34 Request METABOLIC PANEL, COMPREHENSIVE (31034)Indication: Controlled diabetes mellitus type II without complication On: :34 Request LIPOPROTEIN, BLD, BY NMR (17476)Indication: Controlled diabetes mellitus type II without complication On: :34 Request LIPID PANEL (28194)Indication: Controlled diabetes mellitus type II without complication On: :34 Request CBC WITH MANUAL DIFF (36269)Indication: Controlled diabetes mellitus type II without complication On: :34 Request MICROALBUMIN: CREATININE RATIO (42634) AND (40676)Indication: Controlled diabetes mellitus type II without complication On: 28-Rdz-305455:08 Request URINALYSIS W/O MICRO (93155)Indication: Benign essential hypertension On: 53-Lxm-255916:08 Request TSH (99125)Indication: Benign essential hypertension On: 69-Lid-350125:08 Request LIPID PANEL (47810)Indication: Benign essential hypertension On: 41-Xyk-876914:08 Request METABOLIC PANEL, COMPREHENSIVE (51835)Indication: Benign essential hypertension On: 84-Ang-727842:08 Request CBC WITH MANUAL DIFF (57909)Indication: Benign essential hypertension On: 63-Uzl-593706:08 Request HEPATIC FUNCTION PANEL (20003)Indication: Mixed hyperlipidemia On: 74-Ufv-932030:58 Request TSH (09936)Indication: Controlled diabetes mellitus type II without complication On: 21-Ysc-841083:17 Request MICROALBUMIN: CREATININE RATIO (41179) AND (92861)Indication: Controlled diabetes mellitus type II without complication On: 93-Vbe-372841:17 Request METABOLIC PANEL, COMPREHENSIVE (58661)Indication: Controlled diabetes mellitus type II without complication On: 51-Qsu-270561:17 Request CBC WITH MANUAL DIFF (30975)Indication: Controlled diabetes mellitus type II without complication On: 67-Bou-780478:17 Request LIPID PANEL (93364)Indication: Controlled diabetes mellitus type II without complication On: 93-Esu-155874:17 Request LIPID PANEL (86491)Indication: Mixed hyperlipidemia On: 1-Gfe-140582:46 Request Glucose, PP/2 Hour (67759)Indication: Other specified abnormal findings of blood chemistry On: :06 Request LIPID PANEL (22727)Indication: Mixed hyperlipidemia On: 60-Mmr-33062:06 Request Comments: do in 4 months TSH (67326)Indication: Fatigue On: 0-Nkd-514496:31 Request Folate (89068)Indication: Fatigue On: 7-Mmk-788851:31 Request VITAMIN B-12 (CYANOCOBALAMIN) (99179)Indication: Fatigue On: 6-Ktv-278199:31 Request SED RATE ERYTHROCYTE (19114)Indication: Fatigue On: 1-Ypj-350131:31 Request RHEUMATOID FACTOR-QUANT (93715)Indication: Fatigue On: 3-Zue-486613:31 Request C-REACTIVE PROTEIN (38422)Indication: Fatigue On: :31 Request METABOLIC PANEL, COMPREHENSIVE (64999)Indication: Fatigue On: :31 Request CBC (AUTO) (24322)Indication: Fatigue On: :31 Request TYESHA (ANTINUCLEAR ANTIBODY) (28760)Indication: Fatigue On: :31 Request TSH (71965)Indication: Hypertension On: :28 Request URINALYSIS W/O MICRO (42535)Indication: Hypertension On: : Request MICROALBUMIN URINE QUANT (32644)Indication: Hypertension On: :28 Request METABOLIC PANEL, COMPREHENSIVE (17256)Indication: Hypertension On: : Request CBC WITH MANUAL DIFF (63736)Indication: Hypertension On: :28 Request LIPID PANEL (28043)Indication: Mixed hyperlipidemia On: :28 Request METABOLIC PANEL, BASIC (71300)Indication: Hypertension On: :57 Request Comments: do before next appt Planned Encounters Medical; 3 Month FU - On: 24-Nov-2018 14:00 [facility] Kalyn Forbes DO, DO, Kathleen Planned Procedures CT - Chest (IV Contrast Needed)By: On: 08-Sep-2018 Kalyn Hudson DO, DO, Kathleen PHYSICAL THERAPY (63318)By: On: 07-Sep-2018 Intent Brenda Jones Radiology - Cervical SpineBy: On: 07-Sep-2018 Intent Brenda Jones Radiology - Shoulder - RightBy: On: 07-Sep-2018 Intent Brenda Jones Toradol Injection, 30 mg On: 07-Sep-2018 Intent ([id number])By: Brenda Jones Comments: toradol 30mg injection lot:[id number]: 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,INTERMEDIATE MANAGER Spirometry ([id number])By: Evan CAMPBELL, On: 26-May-2018 Intent Kalyn Meyer DO Comments: really poor technique -- ELECTROCARDIOGRAM, COMPLETE (ECG) On: 17-Feb-2018 Intent ([id number])By: Kalyn Forbes DO Comments: nsr no acute chg Kalyn Forbes DO Spirometry ([id number])By: Evan CAMPBELL, On: 01-Jul-2017 Intent Kalyn Meyer DO Comments: mmild restirctive- asx- poor technique??-- didnt order TLC now since asx -- will follow ELECTROCARDIOGRAM, COMPLETE (ECG) On: 18-Mar-2017 Intent ([id number])By: Kalyn Forbes DO Comments: nsr no acute chg Kalyn Forbes DO Spirometry ([id number])By: Evan CAMPBELL, On: 30-Apr-2016 Intent Kalyn Meyer DO Comments: mild obstruction -- enc to take advair more routinely EKG ([id number])By: Evan CAMPBELL, On: 04-Apr-2015 Intent Kalyn Meyer DO Comments: nsr no acute chg IMMUNIZ ADMNIN, 1 VAC, SNGL/COMBO On: 05-Jul-2014 Intent ([id number])By: Kalyn Forbes DO Comments: lot [id number] 10/23/15location L armroute imgiven by - msmith VIS and/or ABN signed Kalyn Forbes DO PNEUM VAC ADLT/IMUMNOSPR, On: 05-Jul-2014 Intent SBC/INTRM ([id number])By: Kalyn Forbes DO, DO, Kathleen EKG ([id number])By: Evan CAMPBELL, On: 01-Apr-2014 Intent Kalyn Meyer DO Comments: nsr no acute chg Eprescribed prescriptions On: 01-Oct-2013 Intent ([id number])By: Kalyn Forbes DO, DO, Kathleen Eprescribed prescriptions On: 29-Jun-2013 Intent ([id number])By: Brenda Arthur LPN Spirometry ([id number])By: Evan CAMPBELL, On: 30-Mar-2013 Intent Kalyn Meyer DO Comments: normal EKG ([id number])By: Evan CAMPBELL, On: 30-Mar-2013 Intent Kalyn Meyer DO Comments: nsr no acute chg Eprescribed prescriptions On: 30-Mar-2013 Intent ([id number])By: Brenda Arthur LPN Eprescribed prescriptions On: 25-Dec-2012 Intent ([id number])By: Oksana Caldera Eprescribed prescriptions On: 04-Dec-2012 Intent ([id number])By: Melissa Romero Eprescribed prescriptions On: 17-Oct-2012 Intent ([id number])By: Brenda Arthur LPN Eprescribed prescriptions On: 11-Sep-2012 Intent ([id number])By: Amy Wilder LPN Spirometry ([id number])By: Evan CAMPBELL, On: 21-Feb-2012 Intent Kalyn Meyer [...] Needed)By: Kalyn Forbes DO, DO, Kathleen Spirometry ([id number])By: Jerson, On: 30-Oct-2010 Intent Brenda ROBLEDO Comments: normal--using advair bid now improved Spirometry ([id number])By: Evan CAMPBELL, On: 15-Oct-2010 Intent Kalyn Meyer DO Comments: severe obstruction but poor tech-- asx and no use of rescue inhaler- but admits doesnt use advair daily 0-- will use bid for 2 weeks then fu to repeat spirometry and see -- if soap chipper get away with maintenance qd will try but lets see what bid EKG ([id number])By: Evan CAMPBELL, On: 20-Jul-2010 Intent Kalyn Meyer DO Comments: nsr no acute chg Spirometry ([id number])By: Evan CAMPBELL, On: 08-Oct-2009 Intent Kalyn Meyer DO Comments: obstruction but poor tch EKG ([id number])By: Wily ROBLEDO, On: 30-May-2009 Intent Maria Del Rosario Comments: nsr no acute changes THER/PROPH/DIAG IV INF, INIT On: 07-Mar-2009 Intent ([id number])By: CORBIN Kwok INFUSION, NORMAL SALINE SOLUTION , On: 07-Mar-2009 Intent 250 CC ([id number])By: CORBIN Kwok Rocephin Injection, 2 Gram On: 07-Mar-2009 Intent ([id number])By: CORBIN Kwok Comments: Lot #:[id number] date:mount given:2 grams Route:IV Site given:left hand Given by: erussellinfused without diff patient voiced no complaints INFUSION, NORMAL SALINE SOLUTION , On: 06-Mar-2009 Intent 1000 CC (Special Coverage Instructions Apply. See MCM: 2049) ([id number])By: Lavonne French CNP HYDRATION IV INFUSION, INIT On: 06-Mar-2009 Intent ([id number])By: Lavonne French CNP Rocephin Injection, 2 Gram On: 06-Mar-2009 Intent ([id number])By: Lavonne French CNP Spirometry ([id number])By: Evan CAMPBELL, On: 15-Nov-2008 Intent Kalyn Meyer DO Comments: done-AWpoor effort -- obstruciton -- asx not using resuce inhaler MRI - OtherBy: Kalyn Forbes DO On: 19-Aug-2008 Intent Kalyn Forbes DO Comments: Left Arm Inhaler Demo ([id number])By: Evan CAMPBELL, On: 10-Jul-2008 Intent Kalyn Meyer DO Comments: done km Aerosol Treatment ([id number])By: On: 10-Jul-2008 Intent Kalyn Forbes DO, DO, Comments: done with albuterol 0.83%better air exchange no wheeze Kalyn Solu- Medrol Injection, 125mg On: 10-Jul-2008 Intent ([id number])By: Kalyn Forbes DO Comments: 2ml given im lt hip lot oatd6 exp 5-11 Kalyn Forbes DO Inhaler Demo ([id number])By: Evan CAMPBELL, On: 08-Nov-2007 Intent Kalyn Meyer DO Solu- Medrol Injection, 125mg On: 08-Nov-2007 Intent ([id number])By: Kalyn Forbes DO Comments: 2ml given imk lt hip lot oajmt exp 9-10 Kalyn Forbes DO Aerosol Treatment ([id number])By: On: 08-Nov-2007 Intent Kalyn Forbes DO, DO, Comments: doneMORE AIR EXCHANGE AND NO JUNKY NOISE ANYMORE Kalyn Radiology - Chest- PA and LatBy: On: 08-Nov-2007 Intent Kalyn Forbes DO, DO, Kathleen Spirometry ([id number])By: Evan CAMPBELL, On: 08-Nov-2007 Intent Kalyn Meyer DO Comments: done kmNORMAL Radiology - Foot - LeftBy: Evan On: 03-Aug-2007 Intent Kalyn CAMPBELL DO, Kathleen Nuclear Stress Test/Stress On: 03-Apr-2007 Intent SPECT/TreadmillBy: Evan CAMPBELL, Comments: heart group to read Kalyn Meyer DO Echo CompleteBy: Evan CAMPBELL, On: 03-Apr-2007 Intent Kalyn Meyer DO Comments: heart group to read EKG ([id number])By: Evan CAMPBELL, On: 03-Apr-2007 Intent Kalyn Meyer DO Comments: nsr no acute ischemic changes SHAVE LESION, On: 31-Oct-2006 Intent FACE/LID/EAR/NOSE/LIP ([id number])By: Kalyn Forbes DO, DO, Kathleen Spirometry ([id number])By: Evan CAMPBELL, On: 19-Sep-2006 Intent Kalyn Meyer DO Comments: moderate obstruction--on no inhalers encouraged her to resume advair discus and will repeat in one month EKG ([id number])By: Evan CAMPBELL, On: 19-Sep-2006 Intent Kalyn Meyer [...] Advance Directives Name Dates Details Immunization Registry [place] - Effective on Effective: 25-Aug-201808/25/2018. Expiration date [...] intolerance: had her weekly labs drawn at [facility] and they called stating her sugar was [...]
--- OUTSIDE RECORDS SUMMARY | 2018-11-18 16:29 | XMS RPT_ITS ---
:1955 Author Organization [facility] Care Team Providers Name Role Phone SCOTT VERNON MD Attending Unavailable DR. KALYN FORBES DO Primary Care Unavailable SCOTT VERNON MD Attending Unavailable DR. KALYN FORBES DO Primary Care Unavailable ANDREY PERSAUD Referring Unavailable MASCI, ANDREY A Referring Unavailable MASCI, ANDREY A Referring Unavailable MASCI, ANDREY A Referring Unavailable MASCI, ANDREY A Attending Unavailable MASCI, ANDREY A Referring Unavailable Evan DO, Kalyn Attending Unavailable Evan DO, Kalyn Referring Unavailable Evan DO, Kalyn Consulting Unavailable Evan, Kalyn Attending Unavailable Evan, Kalyn Referring Unavailable Evan, Kalyn Primary Care Unavailable Brenda Jones Attending Unavailable Brenda Jonse Referring Unavailable Evan, Kalyn Primary Care Unavailable Brenda Jones Attending Unavailable Brenda Jones Referring Unavailable Evan, Kalyn Primary Care Unavailable PROBLEMS PROBLEMS DATE TYPE CONDITION / CODE ATTENDING STATUS SOURCE 03/17/2018 Active Unknown / STERLINGAdonis ANDREY Artem Active [facility] UNK(Unknown) [place] Repository 03/07/2018 Active Malignant neoplasm NA Active [facility] of unspecified site [place] of left female Repository breast / C50.912(ICD-10) 10/24/2017 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, 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 / Repository C92.41(ICD-10) PROCEDURES PROCEDURES No Procedure Records FoundRESULTS RESULTS INITAL EVALUATION (1) Observed: 09/20/2018 Status: F Source: [place] - PT 6:51 PM [facility] REPOSITORY [facility] Physical [facility] [address] [place] [address] [address] [place] [address] / REHABILITATION SERVICES INITIAL EVALUATION MR#: [id number] Acct: [id number] Name: MARTY LARA Rep #: [id number] : 1955 62 From: Walter LEDEZMA Referring Dr.: JERRELL Jones Status: REG [facility] Insurance: ANTHEM SELF PAY INSURANCE Patient's Visit Information MARTY LARA is a 62 year old F referred to Physical Therapy by JERRELL Vásquez with a diagnosis of R shoulder pain. Date of Evaluation: 09/13/18 Physical Therapist: DARIEN Snow - Visit Plan Plan: Hold chart X3 weeks and give HEP consisting of watching posture and mid rows with green t-band. Pt reports that she has not had pain since Tuesday. She reports that she is having an old L shoulder issue and nothing now in her R shoulder. - Subjective Findings: Pt was having some pain to the elbow and sometimes to the wrist. Last she could not get her arm behind her back, could not raise it over her head. She did have an x-ray and showed arthritis. She got a inflammation pill and tyleonl and by sat it felt great. It was down her R arm. She has no neck pain. No weakness in arm and fingers. The tuesday before she twisted 250 caps at work repetitive... and it was bothering her a little before. No N$T. Sits some at a computer or lifts 50# pails or repetitive work. She can sleep on that shoulder now. - Pain R shoulder pain Pain Intensity (Out of 10): 0 - Objective Full R shoulder AROM... Pt has some decreased ROM of her L shoulder especially flexion and IR. 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 C-spine AROM: flex 100%, ext 75%, Rot B 75%. No tenderness to palpation. UE MMT: R shld flex 4/5, L 4- /5, L shld abd 4/5 and R NT, L ER 4/5 and IR L 4/5. -Drop arm test L, - empty can test L, - HK test lest, -impingement L - Rehabilitation Potential Rehabilitation Potential: Good - Anticipated Interventions Thank you for the opportunity to evaluate your patient. For Medicare and Medicare HMO plans, please review the plan of care and approve it. It will need to be FAXED BACK to us at [phone] for Medicare purposes. For Medicare only, by signing this I certify the plan of care. Please let me know if there are questions or concerns regarding this plan of care. Physician Signature: Date: <Electronically signed by Walter Walker MPT> 09/20/18 1851 CC: JERRELL Jones; Kalyn Forbes DO Signed GEETHA GALO Collected: 09/14/2018 Status: F Source: [place] 4:57 PM [facility] REPOSITORY TYPE CODE TESTS RESULT OUT OF RANGE REFERENCE UNITS LAB L9100.0210 0.55-1.02 mg/dL Normal CREATININE WB 1.0 LAB L9100.0220 >60 mL/min Low EGFR WB 57.0000 Performed By: #### L9100.0200 #### [facility] Laboratory Point of Care [address] [place] [address] CHEST WITH CONTRAST Observed: 09/14/2018 Status: F Source: [place] 4:47 PM [facility] REPOSITORY [facility] Imaging Services [address] [place] [address] Chest WITH Contrast MR#: [id number] Acct: [id number] Name: MARTY LARA Rep #: [id number] : 1955 F 62 From: Artemio Guerra PCP: Kalyn Forbes DO Status: REG CLI Study: Chest WITH Contrast Date of Exam: 09/14/18 Exam# [id number] Ordering Dr: Kalyn Forbes DO STUDY: CT CHEST WITH CONTRAST REASON FOR EXAM: Female, 62 years old. Lung mass RADIATION DOSAGE (If Supplied By Facility): CTDIvol = ( 11.74 ) mGy, DLP = ( 467.67 ) mGycm TECHNIQUE: Transaxial imaging was performed following intravenous administration of 75ML ml of Isovue 300 contrast material. Individualized dose optimization techniques were used for this CT. COMPARISON: May 31, 2012 FINDINGS: The lungs are expanded. There are groundglass and reticular opacities in the RIGHT upper lung and superior segment of the RIGHT lower lung. These suggest infiltrates. NO discrete nodule or mass is present. There is NO pleural effusion or pneumothorax. Normal heart and pericardium. Normal mediastinum. Normal hilar regions. Normal enhanced pulmonary arteries. Normal aorta arch and descending thoracic aorta. Normal osseous structures. Images of the upper abdomen demonstrate cholelithiasis. CT/Chest WITH Contrast IMPRESSION: RIGHT lung pneumonitis. Electronically Signed: Artemio Guerra MD at 6:15 EST , Service support , CC: Kalyn Forbes DO Radiological Technologist: Signed SHOULDER MIN 2 VIEWS Observed: 09/07/2018 Status: F Source: [place] 7:50 AM [facility] REPOSITORY [facility] Imaging Services [address] [place] [address] Shoulder min 2 Views MR#: [id number] Acct: [id number] Name: MARTY LARA Rep #: [id number] : 1955 F 62 From: Aleksandr Velasquez DO PCP: Kalyn Forbes DO Status: REG CLI Study: Shoulder min 2 Views Date of Exam: 09/07/18 Exam# [id number] Ordering Dr: Brenda Jones RESIDENCE MANAGER-C STUDY: X-RAY - RIGHT SHOULDER REASON FOR EXAM: Female, 62 years old. Pain. TECHNIQUE: 4 view(s) of the shoulder. COMPARISON: None. FINDINGS: There is mild degenerative arthrosis of the glenohumeral articulation. There is degenerative arthrosis of the acromioclavicular joint without inferior osseous spur formation. Normal acromion. There is no acute fracture, dislocation or destructive osseous pathology. Normal humeral head and visualized proximal humerus. The soft tissue structures are unremarkable. There are surgical clips in the axilla. There is a questionable infiltrate in the lateral right upper lobe. RAD/Shoulder min 2 Views IMPRESSION: 1. Mild degenerative changes of the shoulder without fracture or dislocation. 2. Question infiltrate or mass in the right upper lobe. 3. Surgical clips in the right axilla. Electronically Signed: Aleksandr Velasquez DO at 22:37 EST Tel [phone], Service support , CC: JERRELL Jones; Kalyn Forbes DO Radiological Technologist: Signed CERV SPINE 2 OR 3 Observed: 09/07/2018 Status: F Source: [place] VIEWS 7:50 AM [facility] REPOSITORY [facility] Imaging Services [address] [place] [address] Cerv Spine 2 or 3 Views MR#: [id number] Acct: [id number] Name: MARTY LARA Rep #: [id number] : 1955 F 62 From: Aleksandr Velasquez DO PCP: Kalyn Forbes DO Status: REG CLI Study: Cerv Spine 2 or 3 Views Date of Exam: 09/07/18 Exam# [id number] Ordering Dr: Brenda Jones STUDY: X-RAY - CERVICAL SPINE REASON FOR EXAM: Female, 62 years old. Back pain. TECHNIQUE: 3 view(s) of the cervical spine were obtained. COMPARISON: None FINDINGS: There are degenerative changes of the anterior atlantoaxial articulation. Normal odontoid process. Normal cervical lordosis. There is mild endplate spondylosis and disc space narrowing at C6-7. The remainder of the disc spaces appear normal. There is no evidence of acute fracture or loss of vertebral axial height.. There is maintenance of normal alignment The soft tissue structures are unremarkable. RAD/Cerv Spine 2 or 3 Views IMPRESSION: Mild degenerative changes of the cervical spine. Electronically Signed: Aleksandr Velasquez DO at 23:23 EST Tel [phone], Service support , CC: JERRELL Forbes DO Radiological Technologist: Signed US ROWE RIGHT Observed: 04/14/2018 Status: F Source: [facility] 1:09 PM FOUNDATION REPOSITORY ORIGINAL FROM: [address] [place] [address] PROCEDURE FOR: MARTY LARA [address] [place] [address] Home: PID#: [id number] Exam#: [id number] : 1955 Age: 62 TO: SCOTT VERNON MD [facility] [address] [place] [address] #[id number] ULTRASOUND OF RIGHT BREAST: 04/14/2018 CLINICAL: MAMMOGRAPHIC DENSITY RIGHT BREAST. Comparison is made to exam dated: 03/31/2018 mammogram - [facility]. Color flow and real-time ultrasound of the right breast were performed. There is a 7 mm oval cyst in the right breast at 2 o'clock middle depth. This oval cyst is hypoechoic. This correlates with mammography findings. Color flow imaging demonstrates that there is no vascula rity present. A 3mm thick walled cyst is seen adjacent to this, also likely an oil cyst. IMPRESSION: PROBABLY BENIGN - FOLLOW-UP RECOMMENDED The 7 mm oval cyst in the right breast likely represents an oil cyst and appears probably benign. A follow-up diagnostic mammogram and an ultrasound in 6 months is recommended to demonstrate stability. GARRICK QUINONEZ MD ab/:04/14/2018 13:47:31 Patients Transporter: FRITZ MIRANDA [facility], [facility] letter sent: Probably Benign BI-RADS 3 Ultrasound BI-RADS: 3 Probably benign PROGRESS Observed: 04/10/2018 Status: COMPLETED Source: [place] 10:59 AM [facility] REPOSITORY HNO ID: [id number] Author: Vannesa Baker Cma Service: (none) Author Type: (none) Type: Progress Notes Filed: 04/10/2018 11:00 AM Note Text: I spoke with Marty and she states she has a different PCP now. Dr. Marcio motta MA MAMMOGRAM SCREENING Observed: 03/31/2018 Status: F Source: [facility] BILATERAL W/TAYA 2:30 PM FOUNDATION REPOSITORY ORIGINAL FROM: [place] [address] PROCEDURE FOR: MARTY LARA [address] [place] [address] Home: PID#: [id number] Exam#: [id number] : 1955 Age: 62 TO: SCOTT VERNON MD [facility] [address] [place] [address] #[id number] DIGITAL SCREENING MAMMOGRAM 3D/2D WITH CAD WITH EXAGGERATED CC MEDIOLATERAL OBLIQUE CRANIOCAUDAL: 03/31/2018 Comparison is made to exams dated: 01/30/2016 mammogram, 04/18/2015 mammogram, and 10/11/2014 mammogram - [facility]. The tissue of both breasts is predominately fatty. Current study was also evaluated with a Computer Aided Detection (CAD) system. Benign appearing calcifications are present in both breasts. There is evidence of post surgical and radiation changes associated with both breasts. Examination indicates a biopsy marker in both breasts. There is a new 8 mm oval nodular density with a circumscribed margin in the right breast at 2 o'clock anterior depth. This is seen in additional views. No other significant masses, calcifications, or ot her findings are seen in either breast. IMPRESSION: INCOMPLETE: NEEDS ADDITIONAL IMAGING EVALUATION The new 8 mm oval nodular density in the right breast is most consistent with fat necrosis but is indeterminate. An ultrasound is recommended. Brendan Westbrook M.D., F.A.C.R. tbp/:04/04/2018 16:28:22 Patients Transporter: LOUISE BAHENA (Sam)(Melanie), [facility] letter sent: Abnormal-Needs W/U BI-RADS 0 Mammogram BI-RADS: 0 Indeterminate PROGRESS Observed: 03/30/2018 Status: COMPLETED Source: [place] 10:21 AM [facility] REPOSITORY HNO ID: [id number] Author: Vannesa Baker Cma Service: (none) Author Type: (none) Type: Progress Notes Filed: 04/10/2018 11:00 AM Note Text: MyChart message sent. PROGRESS Observed: 03/30/2018 Status: COMPLETED Source: [place] 10:18 AM [facility] REPOSITORY HNO ID: [id number] Author: Vannesa Baker Cma Service: (none) Author Type: (none) Type: Progress Notes Filed: 04/10/2018 11:00 AM Note Text: [facility] CARE GAP REGISTRY DOCUMENTATION (OUTSIDE TEAMLET) Provider Action/FYI: Please file labs and specify dm dx. PSR Action/FYI: Due for Physical and/or Follow up with labs prior Discuss/review HM due for dm retinal exam Patient identified by name and date of . Last BP/Labs: Blood Pressure: Last 3 Encounter BP Readings: Date: BP: 03/17/2018 114/67 03/07/2017 105/60 07/14/2016 110/60 Lipids: No results found for: CHOL No results found for: HDL LDL Chol, Santos (mg/dL) Date Value 08/27/2006 181 08/26/2004 158 No results found for: TG HGB A1C: Lab Results Component Value Date HBA1C 6.7 08/04/2016 TSH: No results found for: TSH) ? Patient has the following care gap registry disease diagnosis:DM ? HTN ? Hyercholesteremia ? Patient has the following open care gaps:DM - Need Urine Albumin / NOT checked in last 12 months ? Needs dilated eye exam - overdue Health Maintenance Due: DIABETIC FOOT EXAM due on 1963 ANNUAL PCP TEAM CHRONIC DISEASE VISIT due on 1971 ADULT PREVNAR-13 due on 1972 MAMMOGRAM due on 01/29/2017 - dx breast ca HBA1C due on 02/02/2017 - order pending DILATED RETINAL EXAM due on 02/19/2017 URINE ALBUMIN:CREATININE RATIO due on 08/04/2017 - order pending LDL CHOLESTEROL due on 08/04/2017 - order Pending INFLUENZA(1) due on 04/29/2018 ? Last office visit: 08/03/2006 ? Future office visit:Physical and/or follow up next available with PCP Or penny Baker Photographic Aide CNPTOUTREACH Observed: 03/30/2018 Status: COMPLETED Source: [place] 12:00 AM [facility] REPOSITORY Patient Outreach (INTMWS) MARTY LARA ([id number]) 1955 F Date Time Provider Department 03/30/18 VANNESA BAKER (ADOLFO) INTMWS During your visit today, we recorded the following information about you: Vannesa Baker Cma 04/10/2018 11:00 AM Signed [facility] CARE GAP REGISTRY DOCUMENTATION (OUTSIDE TEAMLET) Provider Action/FYI: Please file labs and specify dm dx. PSR Action/FYI: Due for Physical and/or Follow up with labs prior Discuss/review HM due for dm retinal exam Patient identified by name and date of . Last BP/Labs: Blood Pressure: Last 3 Encounter BP Readings: Date: BP: 03/17/2018 114/67 03/07/2017 105/60 07/14/2016 110/60 Lipids: No results found for: CHOL No results found for: HDL LDL CholSantos (mg/dL) Date Value 08/27/2006 181 08/26/2004 158 No results found for: TG HGB A1C: Lab Results Component Value Date HBA1C 6.7 08/04/2016 TSH: No results found for: TSH) ? Patient has the following care gap registry disease diagnosis:DM ? HTN ? Hyercholesteremia ? Patient has the following open care gaps:DM - Need Urine Albumin / NOT checked in last 12 months ? Needs dilated eye exam - HM overdue Health Maintenance Due: DIABETIC FOOT EXAM due on 1963 ANNUAL PCP TEAM CHRONIC DISEASE VISIT due on 1971 ADULT PREVNAR-13 due on 1972 MAMMOGRAM due on 01/29/2017 - dx breast ca HBA1C due on 02/02/2017 - order pending DILATED RETINAL EXAM due on 02/19/2017 URINE ALBUMIN:CREATININE RATIO due on 08/04/2017 - order pending LDL CHOLESTEROL due on 08/04/2017 - order Pending INFLUENZA(1) due on 04/29/2018 ? Last office visit: 08/03/2006 ? Future office visit:Physical and/or follow up next available with PCP Or penny Baker Cma 04/10/2018 11:00 AM Signed MyChart message sent. Vannesa Baker Cma 04/10/2018 11:00 AM Signed I spoke with Marty and she states she has a different PCP now. Dr. Buckley removed. Allergies As of Date: 03/30/2018 Noted Allergy Reaction CEFTAZIDIME 12/07/2011 2 - Rash COMPAZINE (PROCHLORPERAZINE) 12/08/2011 14 - Other: See Comments Comments: Anxiety, skin crawling PENICILLINS 09/10/2005 Comments: unsure of reaction, had PCN as child Date Reviewed: 03/17/2018 Reviewed by: Billie Cartagena - Fully Assessed Reason for Visit: PHMA/Care Gap Outreach [3605] Primary Visit Diagnosis:Hypercholesteremia [E78.00] Other Visit Diagnosis:Essential hypertension [I10] Prescriptions as of 03/30/2018 Sig: TAMOXIFEN 20 MG TABLET Take 1 tablet by mouth once d* OLMESARTAN 20 MG-HYDROCHLOROT* Take 1 tablet by mouth once d* LIRAGLUTIDE 0.6 MG/0.1 ML (18* Inject 1.8 mg subcutaneously * VENLAFAXINE ER 75 MG CAPSULE,* Take 75 mg by mouth once torsten* METFORMIN 500 MG TABLET Take 2 tablets by mouth twice* LORAZEPAM 0.5 MG TABLET Take 1 tablet by mouth twice * ADVAIR DISKUS 100 MCG-50 MCG/* ONE INHALATION TWICE DAILY, a* Problem List As Of Date 03/30/2018 Noted Resolved DIASTASIS RECTI [M62.00] INVALID FOR* Breast Cancer [C50.919] INVALID FOR* Hypercholesteremia [E78.00] Diabetes [E11.9] HTN (Hypertension) [I10] Vitamin D deficiency [E55.9] INVALID FOR* 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 2) APL. HPI: The patient is a 62-year-old female who had a small abnormality visualized on mammogram. There was a small change in this abnormality and further investigation was undertaken. The patient ultimately underwent a targeted left breast ultrasound-guided core biopsy. Per the report, there was an approximate 5 mm hypoechoic shadowing area at the 3 o'clock position of the left breast. Tissue from the core biopsy revealed a moderately differentiated infiltrating ductal carcinoma. Estrogen/progesterone receptors were both positive at 90% and 30% respectively. HER-2 was nonoverexpressed by immunohistochemistry stain, quantified at 1+. The patient then underwent a bilateral breast MRI. The radiologist notes that in the posterior aspect of the left breast near the 3 to 4 o'clock position there was a small area of enhancement demonstrating 1% rapid washout after 128% enhancement. This was noted to be low in signal on T1 and T2 weighted images. Most of the area was of persistent of plateau type curve, and it was felt that this most likely represented the known area of breast cancer. Additionally, anterior to this area, approximately 2.6 cm away was a somewhat lobulated mass measuring 5 mm in length having low signal on T2 and T1 weighted images with persistent enhancement. It demonstrated an approximate 40% maximal enhancement with no evidence of plateauing or rapid washout and was felt likely to be benign. There were no other abnormal areas of focal or nonmass enhancement. The right breast had no identified abnormalities. The patient's history is significant for a stage IIA breast cancer diagnosed in 1996. She had appreciated a lump in the right breast. She ultimately underwent a partial mastectomy, which required 2 redoes to obtain clear margins. The tumor was rendered to be 2.7 cm in total aggregate size. ER and TN were both negative. 20 out of 20 lymph nodes were negative for disease. The patient did not receive postoperative chemotherapy, but did receive whole breast radiation. Underwent breast conserving surgery: FINAL DIAGNOSIS 1. Left breast, lumpectomy tissue (A) - Infiltrating ductal carcinoma (1.3 cm, microscopic measurement). 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 2. Left breast margin, superior, inferior, medial, lateral, anterior, and deep, multiple biopsies (B-G) - Negative for neoplasm. 3. Left sentinel nodes, excision (H) - Negative for neoplasm, five lymph nodes. COMMENT pTpN: pT1c pN0 Tumor size: 1.3 cm - infiltrating carcinoma. This is represented as mass #1. Mass #2 represents an area of fat necrosis. Margins of excision: Free of neoplasm. Tubule score: 3 Mitotic score: 2 Nuclear grade (infiltrating carcinoma): 2 Butler-Cullen grade: II Angiolymphatic invasion: Not identified. Nipple/skin: Not present in the specimen. Ductal carcinoma in-situ: 5% of the main tumor mass is composed of ductal carcinoma in situ. Nuclear grade (ductal carcinoma in situ): 2 ER+/TN-; HER2 nonamplified by FISH. Oncotype DX: Recurrence score 21 (intermediate; 13% estimated risk of recurrence). Declined adjuvant chemotherapy. Previous therapy for breast cancer: 1) Completed RT 05/11/2010. 2) Started anastrozole right after RT. Current therapy for breast cancer: 1) Tamoxifen. Diagnosed with APL after discovered to have pancytopenia on a routine CBC. No hemorrhagic complications at diagnosis. Completed cycle #2 ISABEL 04/14/12. Tolerated well with no symptomatic side effects. Underwent an MRI of the thoracic and lumbar spine 05/05/12--[place]. Received 2 cycles daunorubicin. Cycle #1 complicated by NF and possible line infection. Removed. Began therapy wit Imuran and ATRA. Had 2 doses of MTX. Held thereafter due to increase in LFTs. Therapy stopped 03/2013. Presents for follow up/surveillance. Interim history: She has no complaints today. She still getting rather frequent and bothersome hot flashes. No other side effects from tamoxifen. She hasn't had any acute illnesses in the last year. No episodes of fever, chills or night sweats. Appetite is normal. No unusual bleeding or unexplained bruising. Energy level is doing very well. She is active. She is due for mammogram next week in [place]. She's had no musculoskeletal pain and in particular no back pain. PMH, medications and allergies personally reviewed by me today. Any changes documented in appropriate section. ROS: Constitutional: See above. Neuro: Denies BATISTA, vertigo and imbalance. No symptoms of neuropathy. HEENT: No recent change in voice, vision or hearing. Resp: Denies cough, wheeze and hemoptysis. No shortness of breath at rest. No CAMACHO. CVS: Denies exertional chest pain and LE edema. GI: Denies reflux, n/v, change in bowel habits and abdominal pain. : No dysuria or gross hematuria. Derm: No jaundice or rash. Heme: See above. Psych: Normal mood. PHYSICAL EXAM: Vitals: Blood pressure 114/67, pulse 100, temperature 36.8 ?C (98.2 ?F), temperature source Oral, weight 73.7 kg (162 lb 8 oz). Well-appearing and in no acute distress. EYES: Sclerae are anicteric bilaterally. NECK: Supple. LYMPHATIC: There is no palpable cervical, supraclavicular or axillary adenopathy. RESPIRATORY: Inspiratory breath sounds are of normal intensity in all carlson. CARDIOVASCULAR: Rhythm is regular. Normal intensity S1/S2. There is no gallop or murmur. ABDOMEN: The abdomen is nondistended. There is no organomegaly. No tenderness. Extremities: Free of edema. SKIN: No jaundice or rash. No petechiae. NEUROLOGIC: police officer II-XII are grossly intact. LABS: Component Latest Ref Rng AND Units 03/07/2018 03/10/2018 WBC, [place] 3.70 - 11.00 k/uL 6.48 RBC, [place] 3.90 - 5.20 m/uL 3.94 Hemoglobin, [place] 11.5 - 15.5 g/dL 12.7 Hematocrit, [place] 36.0 - 46.0 % 37.8 MCV, [place] 80.0 - 100.0 fL 95.9 MCH, [place] 26.0 - 34.0 pg 32.2 MCHC, [place] 30.5 - 36.0 g/dL 33.6 RDW, [place] 11.5 - 15.0 % 12.9 Platelet Cnt, [place] 150 - 400 k/uL 165 MPV, [place] 9.0 - 12.7 fL 9.5 Absol Gran Count 1.45 - 7.50 k/uL 2.55 PML-DEV Translocation NOT DETECTED PML-DEV Translocation, Q 0.36137 CA27.29 <38.6 U/mL 27.3 Breast CA 15-3 <26.0 U/mL 21.7 ASSESSMENT/PLAN: 1) APL. Received induction therapy. Bone marrow CALISTA by PCR. Completed 2 cycles ISABEL followed by 2 cycles daunorubicin. Marrow negative by RTPCR following consolidation therapy. -Now 5 years out from treatment of APL. She had low risk disease at presentation. According to most recent guidelines okay to stop surveillance molecular monitoring. -OV with CBC and a year. 2) T1c (1.3 cm; grade II; no AL invasion) N0 MX ER+/TN- HER2 nonamplified left sided breast cancer. Received RT. Tolerating tamoxifen well. Getting mammograms at [facility] in [place]. MRI in 11/2011 suspicious for mets. Follow up MRI 05/10--CR. -Very uncertain as to whether or not she originally had metastatic disease. She is having problematic hot flashes with tamoxifen so I advised her to hold the drug for 2 months. If hot flashes continue then she'll resume tamoxifen if hot flashes resolved and we can consider a different type of aromatase inhibitor therapy. Plan: -She will contact me about 2 months from now to let me know how the hot flashes are doing. -Imaging based on symptoms. Andrey Persaud DO CNOVSP Observed: 03/17/2018 Status: COMPLETED Source: TODD 2:50 PM [facility] REPOSITORY Visit (SP) Office (DANIELA) MARTY LARA ([id number]) 1955 F Date Time Provider Department 03/17/18 2:50 PM ANDREY PERSAUD During your visit today, we recorded the following information about you: Temperature Pulse Blood pressure Weight 98.2 degrees 100/minute 114/67 73.7 kg Andrey Persaud DO 03/17/2018 3:22 PM Signed Diagnosis: 1) Stage I breast cancer. 2) APL. HPI: The patient is a 62-year-old female who had a small abnormality visualized on mammogram. There was a small change in this abnormality and further investigation was undertaken. The patient ultimately underwent a targeted left breast ultrasound-guided core biopsy. Per the report, there was an approximate 5 mm hypoechoic shadowing area at the 3 o'clock position of the left breast. Tissue from the core biopsy revealed a moderately differentiated infiltrating ductal carcinoma. Estrogen/progesterone receptors were both positive at 90% and 30% respectively. HER-2 was nonoverexpressed by immunohistochemistry stain, quantified at 1+. The patient then underwent a bilateral breast MRI. The radiologist notes that in the posterior aspect of the left breast near the 3 to 4 o'clock position there was a small area of enhancement demonstrating 1% rapid washout after 128% enhancement. This was noted to be low in signal on T1 and T2 weighted images. Most of the area was of persistent of plateau type curve, and it was felt that this most likely represented the known area of breast cancer. Additionally, anterior to this area, approximately 2.6 cm away was a somewhat lobulated mass measuring 5 mm in length having low signal on T2 and T1 weighted images with persistent enhancement. It demonstrated an approximate 40% maximal enhancement with no evidence of plateauing or rapid washout and was felt likely to be benign. There were no other abnormal areas of focal or nonmass enhancement. The right breast had no identified abnormalities. The patient's history is significant for a stage IIA breast cancer diagnosed in 1996. She had appreciated a lump in the right breast. She ultimately underwent a partial mastectomy, which required 2 redoes to obtain clear margins. The tumor was rendered to be 2.7 cm in total aggregate size. ER and TN were both negative. 20 out of 20 lymph nodes were negative for disease. The patient did not receive postoperative chemotherapy, but did receive whole breast radiation. Underwent breast conserving surgery: FINAL DIAGNOSIS 1. Left breast, lumpectomy tissue (A) - Infiltrating ductal carcinoma (1.3 cm, microscopic measurement). 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 2. Left breast margin, superior, inferior, medial, lateral, anterior, and deep, multiple biopsies (B-G) - Negative for neoplasm. 3. Left sentinel nodes, excision (H) - Negative for neoplasm, five lymph nodes. COMMENT pTpN: pT1c pN0 Tumor size: 1.3 cm - infiltrating carcinoma. This is represented as mass #1. Mass #2 represents an area of fat necrosis. Margins of excision: Free of neoplasm. Tubule score: 3 Mitotic score: 2 Nuclear grade (infiltrating carcinoma): 2 Butler-Cullen grade: II Angiolymphatic invasion: Not identified. Nipple/skin: Not present in the specimen. Ductal carcinoma in-situ: 5% of the main tumor mass is composed of ductal carcinoma in situ. Nuclear grade (ductal carcinoma in situ): 2 ER+/TN-; HER2 nonamplified by FISH. Oncotype DX: Recurrence score 21 (intermediate; 13% estimated risk of recurrence). Declined adjuvant chemotherapy. Previous therapy for breast cancer: 1) Completed RT 05/11/2010. 2) Started anastrozole right after RT. Current therapy for breast cancer: 1) Tamoxifen. Diagnosed with APL after discovered to have pancytopenia on a routine CBC. No hemorrhagic complications at diagnosis. Completed cycle #2 ISABEL 04/14/12. Tolerated well with no symptomatic side effects. Underwent an MRI of the thoracic and lumbar spine 05/05/12--CALISTA. Received 2 cycles daunorubicin. Cycle #1 complicated by NF and possible line infection. Removed. Began therapy wit Imuran and ATRA. Had 2 doses of MTX. Held thereafter due to increase in LFTs. Therapy stopped 03/2013. Presents for follow up/surveillance. Interim history: She has no complaints today. She still getting rather frequent and bothersome hot flashes. No other side effects from tamoxifen. She hasn't had any acute illnesses in the last year. No episodes of fever, chills or night sweats. Appetite is normal. No unusual bleeding or unexplained bruising. Energy level is doing very well. She is active. She is due for mammogram next week in [place]. She's had no musculoskeletal pain and in particular no back pain. PMH, medications and allergies personally reviewed by me today. Any changes documented in appropriate section. ROS: Constitutional: See above. Neuro: Denies BATISTA, vertigo and imbalance. No symptoms of neuropathy. HEENT: No recent change in voice, vision or hearing. Resp: Denies cough, wheeze and hemoptysis. No shortness of breath at rest. No CAMACHO. CVS: Denies exertional chest pain and LE edema. GI: Denies reflux, n/v, change in bowel habits and abdominal pain. : No dysuria or gross hematuria. Derm: No jaundice or rash. Heme: See above. Psych: Normal mood. PHYSICAL EXAM: Vitals: Blood pressure 114/67, pulse 100, temperature 36.8 ?C (98.2 ?F), temperature source Oral, weight 73.7 kg (162 lb 8 oz). Well-appearing and in no acute distress. EYES: Sclerae are anicteric bilaterally. NECK: Supple. LYMPHATIC: There is no palpable cervical, supraclavicular or axillary adenopathy. RESPIRATORY: Inspiratory breath sounds are of normal intensity in all carlson. CARDIOVASCULAR: Rhythm is regular. Normal intensity S1/S2. There is no gallop or murmur. ABDOMEN: The abdomen is nondistended. There is no organomegaly. No tenderness. Extremities: Free of edema. SKIN: No jaundice or rash. No petechiae. NEUROLOGIC: police officer II-XII are grossly intact. LABS: Component Latest Ref Rng AND Units 03/07/2018 03/10/2018 WBC, [place] 3.70 - 11.00 k/uL 6.48 RBC, [place] 3.90 - 5.20 m/uL 3.94 Hemoglobin, [place] 11.5 - 15.5 g/dL 12.7 Hematocrit, [place] 36.0 - 46.0 % 37.8 MCV, [place] 80.0 - 100.0 fL 95.9 MCH, [place] 26.0 - 34.0 pg 32.2 MCHC, [place] 30.5 - 36.0 g/dL 33.6 RDW, [place] 11.5 - 15.0 % 12.9 Platelet Cnt, [place] 150 - 400 k/uL 165 MPV, [place] 9.0 - 12.7 fL 9.5 Absol Gran Count 1.45 - 7.50 k/uL 2.55 PML-DEV Translocation NOT DETECTED PML-DEV Translocation, Q 0.66156 CA27.29 <38.6 U/mL 27.3 Breast CA 15-3 <26.0 U/mL 21.7 ASSESSMENT/PLAN: 1) APL. Received induction therapy. Bone marrow CALISTA by PCR. Completed 2 cycles ISABEL followed by 2 cycles daunorubicin. Marrow negative by RTPCR following consolidation therapy. -Now 5 years out from treatment of APL. She had low risk disease at presentation. According to most recent guidelines okay to stop surveillance molecular monitoring. -OV with CBC and a year. 2) T1c (1.3 cm; grade II; no AL invasion) N0 MX ER+/TN- HER2 nonamplified left sided breast cancer. Received RT. Tolerating tamoxifen well. Getting mammograms at [facility] in [place]. MRI in 11/2011 suspicious for mets. Follow up MRI 05/10--CR. -Very uncertain as to whether or not she originally had metastatic disease. She is having problematic hot flashes with tamoxifen so I advised her to hold the drug for 2 months. If hot flashes continue then she'll resume tamoxifen if hot flashes resolved and we can consider a different type of aromatase inhibitor therapy. Plan: -She will contact me about 2 months from now to let me know how the hot flashes are doing. -Imaging based on symptoms. Andrey Persaud DO Referring Provider: ANDREY PERSAUD [[id number]] Allergies As of Date: 03/17/2018 Noted Allergy Reaction CEFTAZIDIME 12/07/2011 2 - Rash COMPAZINE (PROCHLORPERAZINE) 12/08/2011 14 - Other: See Comments Comments: Anxiety, skin crawling PENICILLINS 09/10/2005 Comments: unsure of reaction, had PCN as child Date Reviewed: 03/17/2018 Reviewed by: Billie Cartagena - Fully Assessed Reason for Visit: Established Patient [175] Primary Visit Diagnosis:Malignant neoplasm of left female breast, unspecified estrogen receptor status, unspecified site of breast (HCC) [C50.912] Other Visit Diagnosis: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] Follow-up and Disposition History Recorded Prescriptions as of 03/17/2018 Sig: TAMOXIFEN 20 MG TABLET Take 1 tablet by mouth once d* OLMESARTAN 20 MG-HYDROCHLOROT* Take 1 tablet by mouth once d* LIRAGLUTIDE 0.6 MG/0.1 ML (18* Inject 1.8 mg subcutaneously * VENLAFAXINE ER 75 MG CAPSULE,* Take 75 mg by mouth once torsten* METFORMIN 500 MG TABLET Take 2 tablets by mouth twice* LORAZEPAM 0.5 MG TABLET Take 1 tablet by mouth twice * ADVAIR DISKUS 100 MCG-50 MCG/* ONE INHALATION TWICE DAILY, a* Problem List As Of Date 03/17/2018 Noted Resolved DIASTASIS RECTI [M62.00] INVALID FOR* Breast Cancer [C50.919] INVALID FOR* Hypercholesteremia [E78.00] Diabetes [E11.9] HTN (Hypertension) [I10] Vitamin D deficiency [E55.9] INVALID FOR* Acute promyelocytic leukemia [C92.40] INVALID FOR* Hypomagnesemia [E83.42] INVALID FOR*02/28/2014 Muscle weakness (generalized) [M62.81] INVALID FOR* Encounter Status:Closed by ANDREY PERSAUD DO on 03/17/18 PML/DEV RTPCR Collected: 03/10/2018 Status: F Source: TODD 11:24 AM [facility] REPOSITORY TYPE CODE TESTS RESULT OUT OF REFERENCE UNITS RANGE LAB PMLRAR PML-DEV Translocate NOT DETECTED Result Comment: (NOTE) PML-DEV fusion transcripts were not detected by RT-PCR. This result does not entirely exclude the possibility of t(15;17) positive cells in the sample below the test limit of detection. This result has been reviewed and approved by Khari Ronquillo M.D. BACKGROUND INFORMATION: PML-DEV Translocation, t(15;17) This test is designed to detect t(15;17) PML-DEV, a recurrent genetic abnormality found in a subset of patients with acute myeloid leukemia. This test detects all three gene fusion patterns: type A (short, S-form, bcr-3), type B (long, L-form, bcr-1), and type B variant (variable, V-form, bcr-2). Methodology: Patient RNA is isolated, reverse transcribed into cDNA, and amplified using primers specific for the PML and DEV genes. Real time PCR is then performed to detect t(15;17). PML-DEV and ABL (control) transcripts are quantified. Results are reported as a normalized ratio of PML-DEV transcripts to ABL transcripts present in the sample. Limitations: Translocations involving other genes or gene partners will not be detected. Limit of detection for this test is 1 in 10,000 cells. Results of this test must always be interpreted within the patient's clinical context and in conjunction with other relevant data, and should not be used alone for a diagnosis of malignancy. This test is performed pursuant to an agreement with [employer] Test developed and characteristics determined by [employer]. See Compliance Statement B: [facility]/ LAB PMLQT PML-DEV Trnsloc,Qnt 0.18963 Result Comment: (NOTE) Performed by [employer] [facility], [address] [place] [address],[place] [address] [email or web address], Ramesh Goodwin MD, Lab. Director Performed By: #### APLPCR #### [facility] [address] [place] [address] [phone] CA 15-3 Collected: 03/07/2018 Status: F Source: TODD 4:27 PM [facility] REPOSITORY TYPE CODE TESTS RESULT OUT OF RANGE REFERENCE UNITS LAB CA153 <26.0 U/mL CA 15-3 21.7 Result Comment: The CA 15-3 test methodology used is the Electrochemiluminescence Immunoassay by [employer]. Performed By: #### CA153, [id number] #### [facility] [address], [place] [id number] CA27.29 Collected: 03/07/2018 Status: F Source: TODD 4:27 PM [facility] REPOSITORY TYPE CODE TESTS RESULT OUT OF RANGE REFERENCE UNITS LAB CA272 <38.6 U/mL CA27.29 27.3 Result Comment: Test performed by [employer]ochemilumin[employer] (ICMA). Performed By: #### CA153, [id number] #### [facility] [address], [place] [id number] SANTOS ABS GR + CBC Collected: 03/07/2018 Status: F Source: TODD 4:26 PM [facility] REPOSITORY TYPE CODE TESTS RESULT OUT OF REFERENCE UNITS RANGE LAB WWBC 3.70-11.00 k/uL [place] WBC 6.48 LAB WRBC 3.90-5.20 m/uL [place] RBC 3.94 LAB WHGB 11.5-15.5 g/dL [place] Hemoglobin 12.7 LAB WHCT 36.0-46.0 % [place] Hematocrit 37.8 LAB WMCV 80.0-100.0 fL [place] MCV 95.9 LAB WMCH 26.0-34.0 pg [place] MCH 32.2 LAB WMCHC 30.5-36.0 g/dL [place] MCHC 33.6 LAB WRDW 11.5-15.0 % [place] RDW 12.9 LAB WPLT 150-400 k/uL [place] Platelet Cnt 165 LAB WMPV 9.0-12.7 fL [place] MPV 9.5 Result Comment: Test performed at: [facility], [address] [place], [place] [address] [place] [address]. LAB ABGRAN 1.45-7.50 k/uL Absol Gran 2.55 Count PML/DEV RTPCR Collected: 10/26/2017 Status: F Source: TODD 7:40 [facility] REPOSITORY TYPE CODE TESTS RESULT OUT OF REFERENCE UNITS RANGE LAB PMLRAR PML-DEV Translocate NOT DETECTED Result Comment: (NOTE) PML-DEV fusion transcripts were not detected by RT-PCR. This result does not entirely exclude the possibility of t(15;17) positive cells in the sample below the test limit of detection. This result has been reviewed and approved by Sohail Maria M.D., Ph.D. BACKGROUND INFORMATION: PML-DEV Translocation, t(15;17) This test is designed to detect t(15;17) PML-DEV, a recurrent genetic abnormality found in a subset of patients with acute myeloid leukemia. This test detects all three gene fusion patterns: type A (short, S-form, bcr-3), type B (long, L-form, bcr-1), and type B variant (variable, V-form, bcr-2). Methodology: Patient RNA is isolated, reverse transcribed into cDNA, and amplified using primers specific for the PML and DEV genes. Real time PCR is then performed to detect t(15;17). PML-DEV and ABL (control) transcripts are quantified. Results are reported as a normalized ratio of PML-DEV transcripts to ABL transcripts present in the sample. Limitations: Translocations involving other genes or gene partners will not be detected. Limit of detection for this test is 1 in 10,000 cells. Results of this test must always be interpreted within the patient's clinical context and in conjunction with other relevant data, and should not be used alone for a diagnosis of malignancy. This test is performed pursuant to an agreement with [employer] Test developed and characteristics determined by [employer]. See Compliance Statement B: [facility]/ LAB PMLQT PML-DEV Trnsloc,Qnt 0.05523 Result Comment: (NOTE) Performed by [facility], [address] [place] [id number] [email or web address], Ramesh Goodwin MD, Lab. Director Performed By: #### APLPCR #### [facility] [address] [place] [address] [phone] SANTOS CBC AND DIFF Collected: 10/24/2017 Status: F Source: TODD 4:25 PM [facility] REPOSITORY TYPE CODE TESTS RESULT OUT OF REFERENCE UNITS RANGE LAB WWBC 3.70-11.00 k/uL [place] WBC 7.58 LAB WRBC 3.90-5.20 m/uL [place] RBC 3.97 LAB WHGB 11.5-15.5 g/dL [place] Hemoglobin 12.6 LAB WHCT 36.0-46.0 % [place] Hematocrit 37.1 LAB WMCV 80.0-100.0 fL [place] MCV 93.5 LAB WMCH 26.0-34.0 pg [place] MCH 31.7 LAB WMCHC 30.5-36.0 g/dL [place] MCHC 34.0 LAB WRDW 11.5-15.0 % [place] RDW 13.1 LAB WPLT 150-400 k/uL [place] Platelet Cnt 167 LAB WMPV 9.0-12.7 fL [place] MPV 9.7 Result Comment: Test performed at: [facility], [address] [place] [address] Rd[address] [place] [address]. LAB WNEUT % [place] Neut% 50.6 LAB WLYMP % [place] Lymp% 38.5 LAB WMONOC % [place] Putnam% 8.0 LAB WEOS % [place] Eos% 2.5 LAB WBASO % [place] Baso% 0.4 LAB WANEUT 1.45-7.50 k/uL [place] Abs Neut 3.83 LAB WALYMP 1.00-4.00 k/uL [place] Abs Lymp 2.92 LAB WAMONO <0.87 k/uL [place] Abs [place] 0.61 LAB WAEOS <0.46 k/uL [place] Abs Eos 0.19 LAB WABASO <0.11 k/uL [place] Abs Baso 0.03 ALLERGIES ALLERGIES DATE TYPE / NAME / CODE REACTION SEVERITY SOURCE CODE 12/08/2011 DRUG PROCHLORPERAZINE OTHER: SEE C [address] Main [id number]([facility]) Repository 12/07/2011 DRUG CEFTAZIDIME RASH N[facility] INGREDI/41 Clinic Main [id number]([facility] OMED CT) Repository 09/10/2005 Drug PENICILLINS Naylor Class/4195 Clinic Main [address]([facility] ED CT) Repository ENCOUNTERS ENCOUNTERS ADMIT/DISCHARGE ACCOUNT NUMBER ADMITTING ENCOUNTER LOCATION SOURCE CLASS 09/14/2018 [id number] [facility] ding:CT Repository 09/13/2018 [id number] [facility] ding:PT Repository 09/07/2018 [id number] [facility] ding:HPRAD Repository 09/07/2018 [id number] Ambulatory Building:[facility] [place] Practices Repository 04/14/2018/04/14/20 [id number] Ambulatory [address] ding:[facility] Repository 03/31/2018/03/31/20 [id number] Ambulatory [address] ding:[facility] Repository 03/17/2018/03/23/20 [id number] Ambulatory [address] Repository 03/10/2018/03/10/20 [id number] Ambulatory [address] Repository 03/07/2018/03/08/20 [id number] Ambulatory [address] Repository 10/26/2017/10/26/19 [id number] Ambulatory [address] Repository 10/24/2017/10/24/19 [id number] Ambulatory [address] Repository PAYERS PAYERS ENCOUNTER GUARANTOR PAYER SUBSCRIBER SOURCE 09/14/2018 MARTY Vizcaino Primary MARTY [id number] Insurance:ANTHEMPolicy RICHOB: [facility] [place]: [id number] [id number] Repository [address]Eqj: 330) Date:9594-60-43QA [phone] ([facility] [address], [place] [address]TU: 09/14/2018 Secondary NOT GIVENUNK [place] Insurance:SELF PAY [facility] Number: Effective Repository Date:2018-09-11 09/13/2018 MARTY Vizcaino Primary MARTY Graahm [id number] Insurance:ANTHEMPolicy KEPLARDOB: [facility] Number: [id number], [place] [id number] Repository [address]Abd: (330) Date:0625-98-44YD [phone] () [place], [place] [address]ZF: 09/13/2018 Secondary NOT GIVENUNK [place] Insurance:SELF PAY [facility] Number: Effective Repository Date:2018-09-07 09/07/2018 MARTY NINOSKA Primary MARTY NINOSKA [place] [id number] Insurance:ANTHEMPolicy KEPLARDOB: [facility] Number: [id number] [id number] Repository [address]Qct: (330) Date:4414-51-61IY [phone] () [address]64[address]FLYWFYX, [place] [address]OL: 09/07/2018 Secondary NOT GIVENUNK [place] Insurance:SELF PAY [facility] Number: Effective Repository Date:2018-09-07 09/07/2018 Marty L Primary Marty L OHIP Practices KeplarDOB: Insurance:Lockridge KeplarDOB: Repository S /[facility] Number: [id number] [facility] [id number] [address] [place], [place] Date:4989-44-96KxxwJoppa, [place] [address]Mwc: 330) Name:[facility] [address] [address]Vof: [id number] [place] [address] [phone] ()Tel: [phone]: [phone] () () [phone] () 09/07/2018 Secondary Marty L OHIP Practices Insurance:Medical KeplarDOB: Repository [facility] [id number] Number: S Saroj [id number] [place], [place] Date: 1240-59-45Krdj [id number]: Name:[address] ~([address] [phone], [place] 30 (HP)Tel: [phone]: [phone] (WP) 04/14/2018 Critical access hospitalOB: Insurance:[facility] [id number] Repository [facility] Number: [place], [place] [id number] [place], [place] [address]Guu: (330) Date:2018-04-14 [address]Aau: (HP) [id number] Name:BPO BOX (HP)Tel: [phone], [place] [phone] (WP) [id number]: 03/31/2018 Critical access hospitalARDOB: Insurance:BING HERNANDEZARDOB: [facility] [id number] Repository [facility] Number: [place], [place] [id number] [place], [place] [address]Wcy: (330) Date:2018-03-15 99[address]Tfz: (HP) [id number] Name:BPO BOX (HP)Tel: [phone], [place] [phone] (WP) [phone]:
--- NOTE | 2018-12-01 09:28 | HP.PT.NRP ---
HP - Discharge Summary (1) - Patient Information MARTY LARA was seen in my office for initial evaluation on 09/13/18. The following Plan of Care was established for this patient: This patient was last seen in our office 09/13/18. Pertinent comments regarding their Physical therapy will appear below: DC PT. Was holding the chart for 3 weeks to see if pt needed any further instruction from HEP. She has not contacted me and will be discharge at this time. At this point I will be discontinuing this patient from physical therapy. I would be happy to see this patient again in the future if found appropriate by the physician. Thank you! Fatuma Walker, MPT
== END 2018-09-13 19:00 | disposition home or self-care (01) ==
LOC: PT 16:22
PROVIDERS: Family Provider Internal Medicine; PCP Internal Medicine; Referring Provider Nurse Practitioner Gerontology; Visit Provider Nurse Practitioner Gerontology
DX: M25.511 Pain in right shoulder (principal); M25.611 Stiffness of right shoulder, not elsewhere classified
CPT/HCPCS: 97161

== ENCOUNTER → 2018-09-14 16:45 | Outpatient (CLI) | payer BC, SELFPAY ==
--- NOTE | 2018-09-14 16:47 | CT_ITS ---
STUDY: CT CHEST WITH CONTRAST REASON FOR EXAM: Female, 62 years old. Lung mass RADIATION DOSAGE (If Supplied By Facility): CTDIvol = ( 11.74 ) mGy, DLP = ( 467.67 ) mGycm TECHNIQUE: Transaxial imaging was performed following intravenous administration of 75ML ml of Isovue 300 contrast material. Individualized dose optimization techniques were used for this CT. COMPARISON: May 31, 2012 FINDINGS: The lungs are expanded. There are groundglass and reticular opacities in the RIGHT upper lung and superior segment of the RIGHT lower lung. These suggest infiltrates. NO discrete nodule or mass is present. There is NO pleural effusion or pneumothorax. Normal heart and pericardium. Normal mediastinum. Normal hilar regions. Normal enhanced pulmonary arteries. Normal aorta arch and descending thoracic aorta. Normal osseous structures. Images of the upper abdomen demonstrate cholelithiasis. CT/Chest WITH Contrast IMPRESSION: RIGHT lung pneumonitis. Electronically Signed: Artemio Guerra MD at 6:15 EST , Service support ,
--- OUTSIDE RECORDS SUMMARY | 2018-11-19 12:07 | XMS RPT_ITS ---
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 / Repository C92.41(ICD-10) PROCEDURES PROCEDURES No Procedure Records FoundRESULTS RESULTS INITAL EVALUATION (1) Observed: 09/20/2018 Status: F Source: [place] - PT 6:51 PM [facility] REPOSITORY [facility] [address] [place] [address] [address] [place] [address] / REHABILITATION SERVICES INITIAL EVALUATION MR#: [id number] Acct: [id number] Name: MARTY LARA Rep #: [id number] : 1955 62 From: Walter LEDEZMA Referring Dr.: JERRELL Jones Status: REG [facility] Insurance: [employer] SELF PAY INSURANCE Patient's [...] her L shoulder especially flexion and IR. Lease Buyer strength: 60 on the R and 61 [...] to be FAXED BACK to us at [phone] for Medicare purposes. For Medicare only, by signing this I certify the plan of care. Please let me know if there are questions or concerns regarding this plan of care. Physician Signature: Date: <Electronically signed by Walter Walker MPT> 09/20/18 1851 CC: JERRELL Jones; Kalyn Forbes DO Signed GEETHA GALO Collected: 09/14/2018 Status: F Source: [place] 4:57 PM [facility] REPOSITORY TYPE CODE TESTS RESULT OUT OF RANGE REFERENCE UNITS LAB L9100.0210 0.55-1.02 mg/dL Normal CREATININE WB 1.0 LAB L9100.0220 >60 mL/min Low EGFR WB 57.0000 Performed By: #### L9100.0200 #### [facility] Care [address] [place] [address] CHEST WITH CONTRAST Observed: 09/14/2018 Status: F Source: [place] 4:47 PM [facility] REPOSITORY [facility] Imaging Services [address] [place] [address] Chest WITH Contrast MR#: [id number] Acct: [id number] Name: MARTY LARA Rep #: [id number] : 1955 F 62 From: Artemio Guerra PCP: Kalyn Forbes DO Status: REG CLI Study: Chest WITH Contrast Date of Exam: 09/14/18 Exam# [id number] Ordering Dr: Kalyn Forbes DO STUDY: CT [...] Service support , CC: Kalyn Forbes DO Emergency Dept Tech: Signed SHOULDER MIN 2 VIEWS Observed: 09/07/2018 Status: F Source: [place] 7:50 AM [facility] REPOSITORY [facility] Services [address] [place] [address] Shoulder min 2 Views MR#: [id number] Acct: [id number] Name: MARTY LARA Rep #: [id number] : 1955 F 62 From: Aleksandr Velasquez DO PCP: Kalyn Forbes DO Status: REG CLI Study: Shoulder min 2 Views Date of Exam: 09/07/18 Exam# [id number] Ordering Dr: Brenda Jones SOFTWARE ENGINEER KERNEL-C STUDY: X-RAY - RIGHT SHOULDER REASON FOR [...] Aleksandr Velasquez DO at 22:37 EST Tel [phone], Service support , CC: JERRELL Jones; Kalyn Forbes DO Emergency Dept Tech: Signed CERV SPINE 2 OR 3 Observed: 09/07/2018 Status: F Source: [place] VIEWS 7:50 AM [facility] REPOSITORY [facility] Imaging Services [address] [place] [address] Cerv Spine 2 or 3 Views MR#: [id number] Acct: [id number] Name: MARTY LARA Rep #: [id number] : 1955 F 62 From: Aleksandr Velasquez DO PCP: Kalyn Forbes DO Status: REG CLI Study: Cerv Spine 2 or 3 Views Date of Exam: 09/07/18 Exam# [id number] Ordering Dr: Brenda Jones STUDY: X-RAY - [...] Aleksandr Velasquez DO at 23:23 EST Tel [phone], Service support , CC: JERRELL Forbes DO Emergency Dept Tech: Signed US ROWE RIGHT Observed: 04/14/2018 Status: F Source: [facility] 1:09 PM FOUNDATION REPOSITORY ORIGINAL FROM: [address] [place] [address] PROCEDURE FOR: MARTY LARA [address] [place] [address] Home: PID#: [id number] Exam#: [id number] : 1955 Age: 62 TO: SCOTT VERNON MD [facility] [address] [place] [address] #[id number] ULTRASOUND OF RIGHT BREAST: 04/14/2018 CLINICAL: MAMMOGRAPHIC DENSITY RIGHT BREAST. Comparison is made to exam dated: 03/31/2018 mammogram - [facility]. Color flow and real-time ultrasound of [...] demonstrate stability. GARRICK QUINONEZ MD ab/:04/14/2018 13:47:31 Annual Giving Officer: FRITZ MIRANDA [facility], [facility] letter sent: Probably Benign BI-RADS 3 Ultrasound BI-RADS: 3 Probably benign PROGRESS Observed: 04/10/2018 Status: COMPLETED Source: [place] 10:59 AM [facility] REPOSITORY HNO ID: [id number] Author: Vannesa Baker Cma Service: (none) Author Type: (none) Type: Progress Notes Filed: 04/10/2018 11:00 AM Note Text: I spoke with Marty and she states she has a different PCP now. Dr. Marcio motta MA MAMMOGRAM SCREENING Observed: 03/31/2018 Status: F Source: [facility] W/TAYA 2:30 PM FOUNDATION REPOSITORY ORIGINAL FROM: [place] [address] PROCEDURE FOR: MARTY LARA [address] [place] [address] Home: PID#: [id number] Exam#: [id number] : 1955 Age: 62 TO: SCOTT VERNON MD [facility] [address] [place] [address] #[id number] DIGITAL SCREENING MAMMOGRAM 3D/2D WITH CAD WITH EXAGGERATED CC MEDIOLATERAL OBLIQUE CRANIOCAUDAL: 03/31/2018 Comparison is made to exams dated: 01/30/2016 mammogram, 04/18/2015 mammogram, and 10/11/2014 mammogram - [facility]. The tissue of both breasts is [...] recommended. Brendan Westbrook M.D., F.A.C.R. tbp/:04/04/2018 16:28:22 Annual Giving Officer: LOUISE BAHENA (Sam)(Melanie), [facility] letter sent: Abnormal-Needs W/U BI-RADS 0 Mammogram BI-RADS: 0 Indeterminate PROGRESS Observed: 03/30/2018 Status: COMPLETED Source: [place] 10:21 AM [facility] REPOSITORY HNO ID: [id number] Author: Vannesa Baker Cma Service: (none) Author Type: (none) Type: Progress Notes Filed: 04/10/2018 11:00 AM Note Text: MyChart message sent. PROGRESS Observed: 03/30/2018 Status: COMPLETED Source: [place] 10:18 AM [facility] REPOSITORY HNO ID: [id number] Author: Vannesa Baker Cma Service: (none) Author Type: (none) Type: Progress Notes Filed: 04/10/2018 11:00 AM Note Text: [facility] GAP REGISTRY DOCUMENTATION (OUTSIDE TEAMLET) [...] next available with PCP Or penny Baker Senior Boiler Operator CNPTOUTREACH Observed: 03/30/2018 Status: COMPLETED Source: [place] 12:00 AM [facility] REPOSITORY Patient Outreach (INTMWS) MARTY LARA ([id number]) 1955 F Date Time Provider Department 03/30/18 VANNESA BAKER (ADOLFO) INTMWS During your visit today, we recorded the following information about you: Vannesa Baker Cma 04/10/2018 11:00 AM Signed [facility] GAP REGISTRY DOCUMENTATION (OUTSIDE TEAMLET) [...] 04/10/18 PROGRESS Observed: 03/17/2018 Status: COMPLETED Source: [place] 2:55 PM [facility] REPOSITORY HNO ID: [id number] Author: Andrey Persaud Service: (none) Author Type: [...] cm in total aggregate size. ER and DC were both negative. 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 Oncotype DX: Recurrence [...] is due for mammogram next week in [place]. She's had no musculoskeletal pain and in [...] No jaundice or rash. No petechiae. NEUROLOGIC: clinical asst II-XII are grossly intact. LABS: Component Latest Ref Rng AND Units 03/07/2018 03/10/2018 WBC, [place] 3.70 - 11.00 k/uL 6.48 RBC, [place] 3.90 - 5.20 m/uL 3.94 Hemoglobin, [place] 11.5 - 15.5 g/dL 12.7 Hematocrit, [place] 36.0 - 46.0 % 37.8 MCV, [place] 80.0 - 100.0 fL 95.9 MCH, [place] 26.0 - 34.0 pg 32.2 MCHC, [place] 30.5 - 36.0 g/dL 33.6 RDW, [place] 11.5 - 15.0 % 12.9 Platelet Cnt, [place] 150 - 400 k/uL 165 MPV, [place] 9.0 - 12.7 fL 9.5 Absol Gran Count 1.45 - 7.50 k/uL 2.55 PML-DEV Translocation NOT DETECTED PML-DEV Translocation, Q 0.64479 CA27.29 <38.6 U/mL 27.3 Breast CA 15-3 [...] grade II; no AL invasion) N0 MX ER+/DC- HER2 nonamplified left sided breast cancer. Received RT. Tolerating tamoxifen well. Getting mammograms at [facility] in [place]. MRI in 11/2011 suspicious for mets. Follow [...] DO CNOVSP Observed: 03/17/2018 Status: COMPLETED Source: [place] 2:50 PM [facility] REPOSITORY Visit (SP) Office (DANIELA) MARTY LARA ([id number]) 1955 F Date Time Provider Department 03/17/18 [...] cm in total aggregate size. ER and DC were both negative. 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 Oncotype DX: Recurrence [...] MRI of the thoracic and lumbar spine 05/05/12--[facility]. Received 2 cycles daunorubicin. Cycle #1 complicated [...] is due for mammogram next week in [place]. She's had no musculoskeletal pain and in [...] No jaundice or rash. No petechiae. NEUROLOGIC: clinical asst II-XII are grossly intact. LABS: Component Latest Ref Rng AND Units 03/07/2018 03/10/2018 WBC, [place] 3.70 - 11.00 k/uL 6.48 RBC, [place] 3.90 - 5.20 m/uL 3.94 Hemoglobin, [place] 11.5 - 15.5 g/dL 12.7 Hematocrit, [place] 36.0 - 46.0 % 37.8 MCV, [place] 80.0 - 100.0 fL 95.9 MCH, [place] 26.0 - 34.0 pg 32.2 MCHC, [place] 30.5 - 36.0 g/dL 33.6 RDW, [place] 11.5 - 15.0 % 12.9 Platelet Cnt, [place] 150 - 400 k/uL 165 MPV, [place] 9.0 - 12.7 fL 9.5 Absol Gran Count 1.45 - 7.50 k/uL 2.55 PML-DEV Translocation NOT DETECTED PML-DEV Translocation, Q 0.84177 CA27.29 <38.6 U/mL 27.3 Breast CA 15-3 [...] grade II; no AL invasion) N0 MX ER+/DC- HER2 nonamplified left sided breast cancer. Received RT. Tolerating tamoxifen well. Getting mammograms at [facility] in [place]. MRI in 11/2011 suspicious for mets. Follow [...] Andrey Persaud DO Referring Provider: ANDREY PERSAUD [[id number]] Allergies As of Date: 03/17/2018 Noted Allergy [...] PML/DEV RTPCR Collected: 03/10/2018 Status: F Source: [place] 11:24 AM [facility] REPOSITORY TYPE CODE TESTS RESULT OUT OF [...] is performed pursuant to an agreement with [employer] Test developed and characteristics determined by [employer]. See Compliance Statement B: [facility]/ LAB PMLQT PML-DEV Trnsloc,Qnt 0.08543 Result Comment: (NOTE) Performed by [facility], [address] [place] [address],[place] [address] [email or web address], Ramesh Goodwin MD, Lab. Director Performed By: #### APLPCR #### [facility], [facility] [address] [place] [address] [phone] CA 15-3 Collected: 03/07/2018 Status: F Source: [place] 4:27 PM [facility] REPOSITORY TYPE CODE TESTS RESULT OUT OF RANGE REFERENCE UNITS LAB CA153 <26.0 U/mL CA 15-3 21.7 Result Comment: The CA 15-3 test methodology used is the Electrochemiluminescence Immunoassay by [employer]. Performed By: #### CA153, YO1003 #### [facility] [address] [place], [place] [id number] CA27.29 Collected: 03/07/2018 Status: F Source: [place] 4:27 PM [facility] REPOSITORY TYPE CODE TESTS RESULT OUT OF RANGE REFERENCE UNITS LAB CA272 <38.6 U/mL CA27.29 27.3 Result Comment: Test performed by [employer] (ICMA). Performed By: #### CA153, AN3623 #### [facility] [address] [place], [place] [address] [place] ABS GR + CBC Collected: 03/07/2018 Status: F Source: [place] 4:26 PM [facility] REPOSITORY TYPE CODE TESTS RESULT OUT OF [...] MPV 9.5 Result Comment: Test performed at: [facility], [address] [place], [place] [address] [place] [address]. LAB ABGRAN 1.45-7.50 k/uL Absol Gran 2.55 Count PML/DEV RTPCR Collected: 10/26/2017 Status: F Source: [place] 7:40 [facility] REPOSITORY TYPE CODE TESTS RESULT OUT OF [...] is performed pursuant to an agreement with [employer] Test developed and characteristics determined by [employer]. See Compliance Statement B: [employer]/ LAB PMLQT PML-DEV Trnsloc,Qnt 0.05800 Result Comment: (NOTE) Performed by [facility], [address] [place] [address] [email or web address], Ramesh Goodwin MD, Lab. Director Performed By: #### APLPCR #### [facility] [address] [place] [address] [phone] [place] CBC AND DIFF Collected: 10/24/2017 Status: F Source: [place] 4:25 PM [facility] REPOSITORY TYPE CODE TESTS RESULT OUT OF REFERENCE UNITS RANGE LAB WWBC 3.70-11.00 k/uL [place] WBC 7.58 LAB WRBC 3.90-5.20 m/uL [place] RBC 3.97 LAB WHGB 11.5-15.5 g/dL [place] Hemoglobin 12.6 LAB WHCT 36.0-46.0 % [place] Hematocrit 37.1 LAB WMCV 80.0-100.0 fL [place] MCV 93.5 LAB WMCH 26.0-34.0 pg [place] MCH 31.7 LAB WMCHC 30.5-36.0 g/dL [place] MCHC 34.0 LAB WRDW 11.5-15.0 % [place] RDW 13.1 LAB WPLT 150-400 k/uL [place] Platelet Cnt 167 LAB WMPV 9.0-12.7 fL [place] MPV 9.7 Result Comment: Test performed at: [facility], [address] [place] [address] Rd[address] [place] [address]. LAB WNEUT % [place] Neut% 50.6 LAB WLYMP % [place] Lymp% 38.5 LAB WMONOC % [place]% 8.0 LAB WEOS % [place] Eos% 2.5 LAB WBASO % [place] Baso% 0.4 LAB WANEUT 1.45-7.50 k/uL [place] Abs Neut 3.83 LAB WALYMP 1.00-4.00 k/uL [place] Abs Lymp 2.92 LAB WAMONO <0.87 k/uL [place] Abs [place] 0.61 LAB WAEOS <0.46 k/uL [place] Abs Eos 0.19 LAB WABASO <0.11 k/uL [place] Abs Baso 0.03 ALLERGIES ALLERGIES DATE TYPE / NAME / CODE REACTION SEVERITY SOURCE CODE 12/08/2011 DRUG PROCHLORPERAZINE OTHER: SEE C [address] Main [id number]([facility]) Repository 12/07/2011 DRUG CEFTAZIDIME RASH [facility] INGREDI/41 Clinic Main [id number]([facility] OMED CT) Repository 09/10/2005 Drug PENICILLINS [place] Class/4195 Clinic Main [address]([facility] ED CT) Repository ENCOUNTERS ENCOUNTERS ADMIT/DISCHARGE ACCOUNT NUMBER ADMITTING ENCOUNTER LOCATION SOURCE CLASS 09/14/2018 [id number] [facility] ding:CT Repository 09/13/2018 [id number] [facility] ding:PT Repository 09/07/2018 [id number] [facility] ding:HPRAD Repository 09/07/2018 [id number] Ambulatory Building:[facility] [place] Practices Repository 04/14/2018/04/14/20 [id number] Ambulatory [address] ding:[facility] Repository 03/31/2018/03/31/20 [id number] Ambulatory [address] ding:[facility] Repository 03/17/2018/03/23/20 [id number] Ambulatory [address] Repository 03/10/2018/03/10/20 [id number] Ambulatory [address] Repository 03/07/2018/03/08/20 [id number] Ambulatory [address] Repository 10/26/2017/10/26/19 [id number] Ambulatory [address] Repository 10/24/2017/10/24/19 [id number] Ambulatory [address] Repository PAYERS PAYERS ENCOUNTER GUARANTOR PAYER SUBSCRIBER SOURCE 09/14/2018 MARTY Vizcaino Primary MARTY [id number] Insurance:ANTHEMPolicy RICHOB: [facility] Number: [id number], [place] [id number] Repository [address]Ebt: 330) Date:4065-18-69NV [phone] ([facility] [id number], [place] [address]JG: 09/14/2018 Secondary NOT GIVENUNK [place] Insurance:SELF PAY [facility] Number: Effective Repository Date:2018-09-11 09/13/2018 MARTY Vizcaino Primary MARTY Graham [id number] Insurance:ANTHEMPolicy KEPLARDOB: [facility] Number: [id number], [place] [id number] Repository [address]Yvd: (330) Date:1448-58-61ND [phone] () [id number], [place] [address]TO: 09/13/2018 Secondary NOT GIVENUNK [place] Insurance:SELF PAY [facility] Number: Effective Repository Date:2018-09-07 09/07/2018 MARTY NINOSKA Primary MARTY NINOSKA [place] [id number] Insurance:ANTHEMPolicy KEPLARDOB: [facility] Number: [id number], [place] [id number] Repository [address]Lsc: (330) Date:9905-68-55AW [phone] () [id number], [place] [address]OW: 09/07/2018 Secondary NOT GIVENUNK [place] Insurance:SELF PAY [facility] Number: Effective Repository Date:2018-09-07 09/07/2018 Marty L Primary Marty L OHIP Practices KeplarDOB: Insurance:[place] KeplarDOB: Repository S /[facility] Number: [id number] [facility] [id number] [address] [place], [place] Date:7428-43-15ZzglUnalaska, [place] [address]Evy: 330) Name:[facility] [address] [address]Xrm: [id number] [place] [address] [phone] ()Tel: [phone]: [phone]) () () [phone] () 09/07/2018 Secondary Marty L OHIP Practices Insurance:Medical KeplarDOB: Repository [facility] [id number] Number: S Saroj [id number] [place], [place] Date: [id number] [address]Ipw: Name:[address] [address]Axhgprrml, [place] 30 (HP)Tel: [phone]: [phone] (WP) 04/14/2018 [facility] [place] [facility] [id number] Repository [facility] Number: [place], [place] [id number] [place], [place] [address]Rzd: (330) Date:2018-04-14 [address]Hro: (HP) [id number] Name:BPO BOX (HP)Tel: [phone], [place] [phone] (WP) [address]EK: 03/31/2018 [facility] Insurance:[facility] HERNANDEZARDOB: [facility] [id number] Repository [facility] Number: [place], [place] [id number] [place], [place] [address]Eqq: (330) Date:2018-03-15 [address]Ftt: (HP) [id number] [id number] Name:BPO BOX (HP)Tel: [phone], [place] [phone] (WP) [phone]:
== END ==
PROVIDERS: Family Provider Internal Medicine; PCP Internal Medicine; Referring Provider Internal Medicine; Visit Provider Internal Medicine
DX: R91.8 Other nonspecific abnormal finding of lung field (principal)
CPT/HCPCS: 71260; Q9967

== ENCOUNTER → 2018-11-11 09:08 | Outpatient (CLI) | payer BC, SELFPAY ==
[2018-11-11 10:04] LABS: Hematocrit 39.7 % (37-47); Hemoglobin 13.3 g/dl (12.0-15.0); Mean Corp Hgb Conc 33.5 g/gl (32-36); Mean Corpuscular Hgb 31.4 pg (27.0-32.0); Mean Corpuscular Volume 93.6 fL (81-99); Mean Platelet Vol. 9.3 fl (6.2-12.0); Platelet Count 165 K/mm3 (150-450); RBC Distribution Width CV 13.1 % (11.6-14.6); RBC Distribution Width SD 44.6 fl (35.1-43.9); Red Blood Count 4.24 M/mm3 (4.2-5.4)
[2018-11-11 10:06] LABS: Color, Urine Yellow (Yellow); Glucose, Dipstick Normal (Normal); Ketone-Dipstick Negative (Negative); Leukocyte Esterase-Dipstick Negative /ul (Negative); Nitrite-Dipstick Negative (Negative); Occult Blood-Urine Negative /ul (Negative); Protein-Dipstick Negative (Negative); Scan Indicated on CBC? Y/N NO; Urine Bilirubin Dipstick Negative (Negative); Urine Clarity Clear (Clear); Urine Urobilinogen Normal (Normal)
[2018-11-11 10:33] LABS: Microalbumin,Random Urine 5.7 mg/L (NO RANGE EST.); Microalbumin:Creatinine Ratio 5.2 mg/g CRE (<30 mg/g CRE)
[2018-11-11 10:46] LABS: ALB/GLOB Ratio 0.9 RATIO (0.9-2.4); AST(SGOT) 48 U/L (15-37); Alanine Aminotransfer ALT/SGPT 62 U/L (13-56); Albumin, Serum 3.4 g/dL (3.2-5.0); Alkaline Phosphatase 97 U/L (45-117); Anion Gap 8 (5-15); BUN 15 mg/dL (7-18); BUN/Creat Ratio 20.4 RATIO (10-20); Calcium,Total 8.4 mg/dL (8.5-10.1); Chloride 105 mmol/L (98-107); Creatinine, Serum 0.74 mg/dL (0.55-1.02); EST Glomerular Filtration Rate 84 mL/min (>60); Est Glom Filt Rate - Afr Amer 102 mL/min (>60); Globulin 3.6 g/dL (2.2-4.2); Glucose 162 mg/dL (74-106); Potassium 3.9 mmol/L (3.5-5.1); Sodium Level 142 mmol/L (136-145)
[2018-11-14 12:08] LABS: CHOLESTEROL TOTAL 172 mg/dL (100-199); HDL-C 48 mg/dL (>39); HDL-P TOTAL 32.5 umol/L (>=30.5); SMALL LDL-P 991 nmol/L (<=527); TRIGLYCERIDES 93 mg/dL (0-149)
[2018-11-14 14:34] LABS: INSULIN RESISTANCE SCORE 65 (<=45); LDL SIZE 20.6 nm (>20.5); LDL-C 105 mg/dL (0-99); LDL-P 1631 nmol/L (<1000)
[2018-11-14 14:48] LABS: Lipoprotein A <10 nmol/L (<75)
== END ==
PROVIDERS: Family Provider Internal Medicine; PCP Internal Medicine; Referring Provider Internal Medicine; Visit Provider Internal Medicine
DX: I10 Essential (primary) hypertension (principal); E78.2 Mixed hyperlipidemia; E55.9 Vitamin D deficiency, unspecified; R80.9 Proteinuria, unspecified
CPT/HCPCS: 36415; 80053; 80061; 81002; 82043; 82306; 82570; 83695; 83704; 84443; 85027

== ENCOUNTER → 2018-12-09 09:05 | Outpatient (CLI) | payer BC, SELFPAY ==
--- NOTE | 2018-12-09 07:47 | US_ITS ---
STUDY: ABDOMINAL ULTRASOUND REASON FOR EXAM: Female, 63 years old. Swelling. Assess for fluid TECHNIQUE: Transabdominal ultrasound was performed with real-time and static adler scale imaging. TECHNICAL QUALITY: Adequate. COMPARISON: None. FINDINGS: Liver: The liver measures 17.4 cm. There is increased echogenicity consistent with fatty infiltration. The bile ducts are within normal limits. There is hepatic color flow. The direction of portal flow is hepatopetal. There is no demonstrated mass lesion. Portal vein measurement: Gallbladder: Normal distended gallbladder. The gallbladder wall measures 2.8 mm. There is a negative sonographic Gonzalez's sign. There is no pericholecystic fluid. There are multiple echogenic structures within the gallbladder, consistent with multiple gallstones. Common Bile Duct (C.B.D.): The common bile duct measures 4.8 mm. Pancreas: Normal size of the head, body and tail of the pancreas. There is normal echogenicity of the pancreas. There is no demonstrated pancreatic mass or cyst. Spleen: Normal size of the spleen. The spleen measures 10.4 cm. Right Kidney: Normal size of the right kidney. The right kidney measures 11.9 cm in length. Normal renal cortex. There is no demonstrated renal mass or cyst. There is no right hydronephrosis. Left Kidney: Normal size of the left kidney. The left kidney measures 11.3 cm in length. Normal renal cortex.There is no demonstrated renal mass or cyst. There is no left hydronephrosis. Aorta: The visualized abdominal aorta is within normal limits I.V.C.: The IVC is patent. There is no ascites. Dedicated images of the right lower, left lower and left upper quadrants were obtained demonstrating no discrete masses. US/Abdomen Complete IMPRESSION: Fatty infiltration of the liver. Cholelithiasis with no associated gallbladder wall thickening, pericholecystic fluid nor sonographic Gonzalez's sign. No ascites identified. Electronically Signed: Mandy Hernadez MD at 16:44 EDT Tel , Service support ,
== END ==
PROVIDERS: Family Provider Internal Medicine; PCP Internal Medicine; Referring Provider Internal Medicine; Visit Provider Internal Medicine
DX: R19.8 Other specified symptoms and signs involving the digestive system and abdomen (principal)
CPT/HCPCS: 76700

== ENCOUNTER → 2019-06-16 10:26 | Outpatient (CLI) | payer BC, SELFPAY ==
[2019-06-16 10:43] LABS: Bacteria 0 SEEN /hpf (None Seen); Mucous, Urine 0 SEEN /hpf (<or=2+); Red Blood Cells-Urine 0 SEEN /hpf (0-5)
[2019-06-16 11:02] LABS: Absolute Lymphocyte Count 2.69 X10^3/uL (0.83-4.51); Absolute Neutrophil Count 3.1 X10^3/uL (2.0-7.7); Basophil# 0.05 X10^3/uL; Basophil% 0.8 % (0-1); Color, Urine Yellow (Yellow); Eosinophil# 0.34 X10^3/uL; Eosinophils% 5.2 % (0-5); Glucose, Dipstick Normal (Normal); Hemoglobin 14.4 g/dL (12.0-15.0); Ketone-Dipstick Negative (Negative); Leukocyte Esterase-Dipstick 500 /ul (Negative); Lymphocyte # 2.69 X10^3/ul (4.0); Lymphocyte % 40.8 % (19-41); Mean Corp Hgb Conc 34.3 g/dL (32-36); Mean Corpuscular Hgb 31.4 pg (27.0-32.0); Mean Corpuscular Volume 91.7 fL (81-99); Mean Platelet Vol. 9.6 fl (6.2-12.0); Monocyte% 6.1 % (0-10); NRBC Flagged by Analyzer 0 % (0-5); Neutrophil # 3.09 X10^3/uL (2.7-7.7); Neutrophil % 46.8 % (47-70); Nitrite-Dipstick Negative (Negative); Occult Blood-Urine 10 /ul (Negative); Platelet Count 204 K/mm3 (150-450); Protein-Dipstick 15 mg/dl (Negative); RBC Distribution Width CV 13.1 % (11.6-14.6); RBC Distribution Width SD 43.7 fl (35.1-43.9); Red Blood Count 4.58 M/mm3 (4.2-5.4); Urine Bilirubin Dipstick Negative (Negative); Urine Clarity Sl. Cloudy (Clear); Urine Urobilinogen Normal (Normal); White Blood Count 6.6 K/mm3 (4.4-11.0)
[2019-06-16 11:10] LABS: Squamous Epithelial Cells - UA 10-25 SEEN /hpf (5-10); White Blood Cells 10-25 SEEN /hpf (0-5)
[2019-06-16 11:35] LABS: AST(SGOT) 25 U/L (15-37); Alanine Aminotransfer ALT/SGPT 39 U/L (13-56); Albumin, Serum 3.6 g/dL (3.2-5.0); Alkaline Phosphatase 104 U/L (45-117); Anion Gap 7 (5-15); BUN 13 mg/dL (7-18); BUN/Creat Ratio 16.9 RATIO (10-20); Calcium,Total 8.9 mg/dL (8.5-10.1); Chloride 106 mmol/L (98-107); Creatinine, Serum 0.77 mg/dL (0.55-1.02); EST Glomerular Filtration Rate 80 mL/min (>60); Est Glom Filt Rate - Afr Amer 97 mL/min (>60); Globulin 3.7 g/dL (2.2-4.2); Glucose 119 mg/dL (74-106); Potassium 3.8 mmol/L (3.5-5.1); Protein, Total 7.3 g/dL (6.4-8.2); Sodium Level 139 mmol/L (136-145); Thyroid Stim Hormone (TSH) 0.88 uIU/mL (0.358-3.74)
[2019-06-16 11:47] LABS: Microalbumin,Random Urine 10.4 mg/L (NO RANGE EST.); Microalbumin:Creatinine Ratio 6.9 mg/g CRE (<30 mg/g CRE)
[2019-06-18 09:55] LABS: Vitamin D,25 Hydroxy 28.6 ng/mL (29.95-100.01)
[2019-06-19 15:04] LABS: CHOLESTEROL TOTAL 220 mg/dL (100-199); HDL-C 61 mg/dL (>39); HDL-P TOTAL 36.9 umol/L (>=30.5); SMALL LDL-P 1040 nmol/L (<=527); TRIGLYCERIDES 90 mg/dL (0-149)
[2019-06-19 15:09] LABS: INSULIN RESISTANCE SCORE 53 (<=45); LDL SIZE 20.9 nm (>20.5); LDL-C 141 mg/dL (0-99); LDL-P 1953 nmol/L (<1000)
== END ==
PROVIDERS: Family Provider Internal Medicine; PCP Internal Medicine; Referring Provider Internal Medicine; Visit Provider Internal Medicine
DX: E55.9 Vitamin D deficiency, unspecified (principal); E78.2 Mixed hyperlipidemia; E11.9 Type 2 diabetes mellitus without complications
CPT/HCPCS: 36415; 80053; 80061; 81001; 82043; 82306; 82570; 83704; 84443; 85025

== ENCOUNTER → 2019-11-21 06:53 | Outpatient (CLI) | payer BC, SELFPAY ==
--- NOTE | 2019-11-21 06:59 | ECHOCSONC_ITS ---
Reason For Study: DYSPNEA Procedure This was a 2D Doppler, Color Flow transthoracic echocardiogram. Unable to perform complete strain analysis due to suboptimal image quality. The study was technically difficult. Contrast injection was performed. Exam performed in department. Left Ventricle Normal LV size. Left ventricular systolic function is normal. The estimated ejection fraction is 55 %. No regional wall motion abnormalities noted. Right Ventricle Normal RV size. Normal systolic function. Atria Normal left atrium. Normal right atrium. Mitral Valve Normal mitral valve. Tricuspid Valve Normal tricuspid valve. Aortic Valve Normal aortic valve. Pulmonic Valve The pulmonic valve is not well visualized. Great Vessels Normal aortic root. The pulmonary artery is normal size. Normal inferior vena cava. Pericardium/Pleural No pericardial effusion. Medication Diluted definity 10.0ml given slow IV push to enhance endocardial definition. MMode/2D Measurements & Calculations LVIDd: 4.9 cm IVSd: 0.74 cm Ao root diam: 3.4 cm LVIDs: 3.9 cm LVPWd: 0.79 cm RVDd: 2.8 cm FS: 21.6 % LAV(MOD-bp): 33.8 ml EDV(MOD-sp4): 93.3 ml EDV(MOD-sp2): 53.6 ml LAV(MOD-bp) Indexed: 18.8 ml/m2 ESV(MOD-sp4): 50.7 ml EF(MOD-sp2): 51.5 % LAV(MOD-sp2): 37.8 ml EF(MOD-sp4): 45.6 % LAV(MOD-sp4): 26.7 ml SV(MOD-sp4): 42.6 ml SV(MOD-sp2): 27.6 ml LA A4 area: 11.6 cm2 LA dimension(2D): 3.6 cm RA A4 area: 8.4 cm2 Time Measurements MV dec time: 0.14 sec Doppler Measurements & Calculations MV E max bishop: 65.4 cm/sec Lat Peak E' Bishop: 9.6 cm/sec Med Peak E' Bishop: 7.0 cm/sec MV A max bishop: 49.5 cm/sec E/E' lat: 6.8 E/E' med: 9.4 MV E/A: 1.3 Ao V2 max: 113.5 cm/sec LV V1 max: 88.1 cm/sec PA V2 max: 87.2 cm/sec Ao max P.2 mmHg LV V1 max P.1 mmHg Interpretation Summary Normal LV size. Left ventricular systolic function is normal. The estimated ejection fraction is 55 %. Structurally normal valves. Contrast injection was performed. Ordering Physician: Andrey Persaud Referring Physician: TAMMY FORBES Performed By: Pamela Oliveira RDCS, RVT
--- NOTE | 2019-11-21 15:31 | STRESSREP ---
Stress Test Report Pharmacologic myocardial perfusion stress test. 64-year-old lady with a history of breast carcinoma. Resting EKG demonstrates normal sinus rhythm with a rate of 90 bpm normal intervals are noted resting blood pressure is 110/72 mmHg. 0.4 mg of regadenoson was infused per usual protocol followed by rapid intravenous saline flush injection continuous EKG monitoring was performed. The maximum heart rate attained was 116 bpm which was 75% of maximum predicted heart rate the maximum workload was 1 metabolic equivalent. At rest there were no ST or T wave changes noted to suggest ischemia at peak exercise nonspecific ST-T wave changes were noted. No clinical angina was noted. The resting blood pressure 110/72 with a final blood pressure 108/62. Myocardial perfusion protocol. 11.5 mCi of technetium 99m sestamibi was injected at rest. 0.5 mg of regadenoson was infused per usual protocol peak infusion 34.1 mCi of technetium 99m sestamibi was injected stress images were obtained stress and rest images were reconstructed and compared in the short axis vertical long horizontal long axis. Gated images were also obtained Perfusion SPECT analysis: Review of the stress images demonstrate normal uptake of tracer noted in all areas of the myocardium the resting images similar demonstrate normal uptake of tracer noted in all areas of the myocardium. No areas of reversibility are noted suggest ischemia no previous infarct is noted. Gated SPECT analysis: The gated ejection fraction is 49%. Conclusion: Normal pharmacologic myocardial perfusion stress test. Preserved ejection fraction.
== END ==
PROVIDERS: PCP Internal Medicine; Referring Provider Internal Medicine Hematology & Oncology; Visit Provider Internal Medicine Hematology & Oncology
DX: C50.211 Malignant neoplasm of upper-inner quadrant of right female breast (principal); E11.9 Type 2 diabetes mellitus without complications; R07.9 Chest pain, unspecified; R06.02 Shortness of breath; Z51.81 Encounter for therapeutic drug level monitoring; Z79.899 Other long term (current) drug therapy
CPT/HCPCS: 78452; 93017; 93306; 93356; A9500; Q9957; A4216; C8929; J2785

== ENCOUNTER → 2020-03-07 10:28 | Outpatient (CLI) | payer BC, SELFPAY ==
[2020-03-07 11:04] LABS: Absolute Lymphocyte Count 2.03 X10^3/uL (0.83-4.51); Absolute Neutrophil Count 3.7 X10^3/uL (2.0-7.7); Basophil# 0.03 X10^3/uL; Basophil% 0.5 % (0-1); Eosinophil# 0.23 X10^3/uL; Eosinophils% 3.5 % (0-5); Hematocrit 39.7 % (37-47); Hemoglobin 13.5 g/dL (12.0-15.0); Lymphocyte # 2.03 X10^3/ul (4.0); Lymphocyte % 31.1 % (19-41); Mean Corpuscular Hgb 31.3 pg (27.0-32.0); Mean Corpuscular Volume 91.9 fL (81-99); Mean Platelet Vol. 9.2 fl (6.2-12.0); Monocyte# 0.52 X10^3/uL; NRBC Flagged by Analyzer 0 % (0-5); Neutrophil # 3.69 X10^3/uL (2.7-7.7); Neutrophil % 56.6 % (47-70); Platelet Count 197 K/mm3 (150-450); RBC Distribution Width CV 13.7 % (11.6-14.6); RBC Distribution Width SD 45.6 fl (35.1-43.9); Red Blood Count 4.32 M/mm3 (4.2-5.4); White Blood Count 6.5 K/mm3 (4.4-11.0)
[2020-03-07 11:35] LABS: Vitamin D,25 Hydroxy 35.2 ng/mL
[2020-03-07 11:40] LABS: Microalbumin,Random Urine < 5.0 mg/L (NO RANGE EST.)
[2020-03-07 11:44] LABS: AST(SGOT) 20 U/L (15-37); Alanine Aminotransfer ALT/SGPT 29 U/L (13-56); Albumin, Serum 3.5 g/dL (3.2-5.0); Alkaline Phosphatase 88 U/L (45-117); Anion Gap 8 (5-15); BUN 12 mg/dL (7-18); BUN/Creat Ratio 19.3 RATIO (10-20); Calcium,Total 8.7 mg/dL (8.5-10.1); Chloride 105 mmol/L (98-107); Cholesterol 219 mg/dL (200); Creatinine, Serum 0.62 mg/dL (0.55-1.02); EST Glomerular Filtration Rate 102 mL/min (>60); Est Glom Filt Rate - Afr Amer 124 mL/min (>60); Globulin 3.5 g/dL (2.2-4.2); Glucose 156 mg/dL (74-106); High Density Lipoprotein 55 mg/dL; Potassium 3.8 mmol/L (3.5-5.1); Sodium Level 140 mmol/L (136-145); Thyroid Stim Hormone (TSH) 1.12 uIU/mL (0.358-3.74); Triglycerides 124 mg/dL; Very Low Density Lipoprotein 25 mg/dL (5-40)
== END ==
PROVIDERS: PCP Internal Medicine; Referring Provider Internal Medicine; Visit Provider Internal Medicine
DX: E11.9 Type 2 diabetes mellitus without complications (principal); E55.9 Vitamin D deficiency, unspecified; E78.2 Mixed hyperlipidemia
CPT/HCPCS: 36415; 80053; 80061; 82043; 82306; 82570; 84443; 85025

== ENCOUNTER → 2020-06-12 10:18 | Outpatient (CLI) | payer BC, SELFPAY ==
[2020-06-12 12:20] LABS: Cholesterol 209 mg/dL (200); High Density Lipoprotein 57 mg/dL; Triglycerides 102 mg/dL; Very Low Density Lipoprotein 20 mg/dL (5-40)
== END ==
PROVIDERS: PCP Internal Medicine; Referring Provider Internal Medicine; Visit Provider Internal Medicine
DX: E78.2 Mixed hyperlipidemia (principal)
CPT/HCPCS: 36415; 80061

== ENCOUNTER → 2020-09-13 09:51 | Outpatient (CLI) | payer MEDICARE, OTHER, SELFPAY ==
[2020-09-13 10:12] LABS: Absolute Lymphocyte Count 2.32 X10^3/uL (0.83-4.51); Absolute Neutrophil Count 3.4 X10^3/uL (2.0-7.7); Basophil# 0.05 X10^3/uL; Basophil% 0.8 % (0-1); Eosinophil# 0.23 X10^3/uL; Eosinophils% 3.6 % (0-5); Hematocrit 42.4 % (37-47); Hemoglobin 14.3 g/dL (12.0-15.0); Lymphocyte # 2.32 X10^3/ul (4.0); Mean Corp Hgb Conc 33.7 g/dL (32-36); Mean Corpuscular Volume 91.8 fL (81-99); Monocyte# 0.45 X10^3/uL; NRBC Flagged by Analyzer 0 % (0-5); Neutrophil # 3.37 X10^3/uL (2.7-7.7); Neutrophil % 52.3 % (47-70); Platelet Count 234 K/mm3 (150-450); RBC Distribution Width CV 13.4 % (11.6-14.6); Red Blood Count 4.62 M/mm3 (4.2-5.4); White Blood Count 6.4 K/mm3 (4.4-11.0)
[2020-09-13 10:56] LABS: AST(SGOT) 20 U/L (15-37); Alanine Aminotransfer ALT/SGPT 31 U/L (13-56); Albumin, Serum 3.7 g/dL (3.2-5.0); Alkaline Phosphatase 113 U/L (45-117); Anion Gap 6 (5-15); BUN 12 mg/dL (7-18); BUN/Creat Ratio 16.6 RATIO (10-20); Calcium,Total 8.9 mg/dL (8.5-10.1); Chloride 108 mmol/L (98-107); Cholesterol 214 mg/dL (200); Creatinine, Serum 0.72 mg/dL (0.55-1.02); EST Glomerular Filtration Rate 86 mL/min (>60); Est Glom Filt Rate - Afr Amer 103 mL/min (>60); Globulin 3.6 g/dL (2.2-4.2); Glucose 122 mg/dL (74-106); High Density Lipoprotein 62 mg/dL; Protein, Total 7.3 g/dL (6.4-8.2); Sodium Level 142 mmol/L (136-145); Thyroid Stim Hormone (TSH) 0.95 uIU/mL (0.358-3.74); Triglycerides 98 mg/dL; Very Low Density Lipoprotein 20 mg/dL (5-40)
[2020-09-13 11:18] LABS: Bacteria 0 SEEN /hpf (None Seen); Mucous, Urine 0 SEEN /hpf (<or=2+); Red Blood Cells-Urine 0 SEEN /hpf (0-5); Squamous Epithelial Cells - UA 0 SEEN /hpf (5-10); White Blood Cells 0 SEEN /hpf (0-5)
[2020-09-13 11:47] LABS: Color, Urine Yellow (Yellow); Glucose, Dipstick Normal (Normal); Ketone-Dipstick Negative (Negative); Leukocyte Esterase-Dipstick 25 /ul (Negative); Nitrite-Dipstick Negative (Negative); Occult Blood-Urine Negative /ul (Negative); Protein-Dipstick Negative (Negative); Urine Bilirubin Dipstick Negative (Negative); Urine Clarity Clear (Clear); Urine Urobilinogen Normal (Normal)
[2020-09-13 12:08] LABS: Microalbumin,Random Urine 11.1 mg/L (NO RANGE EST.); Microalbumin:Creatinine Ratio 7.4 mg/g CRE (<30 mg/g CRE)
== END ==
PROVIDERS: PCP Internal Medicine; Referring Provider Internal Medicine; Visit Provider Internal Medicine
DX: E11.9 Type 2 diabetes mellitus without complications (principal)
CPT/HCPCS: 36415; 80053; 80061; 81001; 82043; 82570; 84443; 85025

== ENCOUNTER → 2020-12-13 10:04 | Outpatient (CLI) | payer MEDICARE, OTHER, SELFPAY ==
[2020-12-13 11:01] LABS: Cholesterol 210 mg/dL (200); High Density Lipoprotein 59 mg/dL; Triglycerides 88 mg/dL; Very Low Density Lipoprotein 18 mg/dL (5-40)
[2020-12-15 08:26] LABS: Vitamin D,25 Hydroxy 39.4 ng/mL
== END ==
PROVIDERS: PCP Internal Medicine; Referring Provider Internal Medicine; Visit Provider Internal Medicine
DX: E55.9 Vitamin D deficiency, unspecified (principal); E78.2 Mixed hyperlipidemia
CPT/HCPCS: 36415; 80061; 82306

== ENCOUNTER → 2021-01-13 09:26 | Outpatient (CLI) | payer MEDICARE, OTHER, SELFPAY ==
--- NOTE | 2021-01-13 09:32 | BD_ITS ---
STUDY: DUAL ENERGY X-RAY ABSORPTIOMETRY / DXA REASON FOR EXAM: Female, 65 years old. Z780. Postmenopausal. History of breast cancer. TECHNIQUE: Bone Mineral Density (BMD) measurements of lumbar spine and bilateral hips were obtained. COMPARISON: None. FINDINGS: Lumbar Spine (L1-L4): g/cm2 (1.210) / T-score (0.3) / Z-score (2.0) Findings are suggestive of normal bone density with a low fracture risk. Left Femur Total: g/cm2 (0.899) / T-score (-0.9) / Z-score (0.5) Left Femoral Neck: g/cm2 (0.769) / T-score (-1.9) / Z-score (-0.4) Right Femur Total: g/cm2 (0.898) / T-score (-0.9) / Z-score (0.4) Right Femoral Neck: g/cm2 (0.823) / T-score (-1.5) / Z-score (0.0) BD/Dexa Bone Density Study IMPRESSION: The patient is considered osteopenic as outlined below according to World Shimon Organization (WHO) criteria with a moderate fracture risk. Reference Information: The T-score is the number of standard deviations above or below the standard which is normal for young adults at their peak bone mineral density. The World Health Organization (WHO) interprets the T-scores as follows: Above -1 Normal bone density Between -1 and -2.5 Osteopenia Equal to / or below -2.5 Osteoporosis As a practical clinical guideline, osteopenia may be graded as follows: Mild -1 through -1.5 Moderate -1.6 through -2.0 Severe -2.1 through -2.4 The Z-score is the number of standard deviations above or below age-matched controls. A Z-score of less than -1.5 would be considered abnormal. References: 1. NIH Osteoporosis and Related Bone Diseases www osteo.org 2. International Society for Clinical Densitometry www iscd.org 3. National Osteoporosis Foundation www nof.org Electronically Signed: Mitch Street MD at 12:36 EDT , Service support ,
== END ==
PROVIDERS: PCP Internal Medicine; Referring Provider Internal Medicine; Visit Provider Internal Medicine
DX: Z78.0 Asymptomatic menopausal state (principal)
CPT/HCPCS: 77080

== ENCOUNTER → 2021-03-12 10:06 | Outpatient (CLI) | payer MEDICARE, OTHER, SELFPAY ==
[2021-03-12 10:12] LABS: Mucous, Urine 0 SEEN /hpf (<or=2+); Red Blood Cells-Urine 0 SEEN /hpf (0-5)
[2021-03-12 11:00] LABS: Absolute Neutrophil Count 3.7 X10^3/uL (2.0-7.7); Basophil# 0.04 X10^3/uL; Basophil% 0.6 % (0-1); Eosinophil# 0.37 X10^3/uL; Eosinophils% 5.6 % (0-5); Hematocrit 41.6 % (37-47); Hemoglobin 14.1 g/dL (12.0-15.0); Lymphocyte % 28.6 % (19-41); Mean Corp Hgb Conc 33.9 g/dL (32-36); Mean Corpuscular Hgb 30.9 pg (27.0-32.0); Mean Platelet Vol. 9.8 fl (6.2-12.0); Monocyte# 0.59 X10^3/uL; Monocyte% 8.9 % (0-10); NRBC Flagged by Analyzer 0 % (0-5); Neutrophil # 3.73 X10^3/uL (2.7-7.7); Neutrophil % 56.1 % (47-70); Platelet Count 235 K/mm3 (150-450); RBC Distribution Width SD 43.2 fl (35.1-43.9); Red Blood Count 4.57 M/mm3 (4.2-5.4); White Blood Count 6.6 K/mm3 (4.4-11.0)
[2021-03-12 11:07] LABS: Color, Urine Yellow (Yellow); Glucose, Dipstick Normal (Normal); Ketone-Dipstick Negative (Negative); Leukocyte Esterase-Dipstick 25 /ul (Negative); Nitrite-Dipstick Negative (Negative); Occult Blood-Urine Negative /ul (Negative); Protein-Dipstick Negative (Negative); Urine Bilirubin Dipstick Negative (Negative); Urine Clarity Clear (Clear); Urine Urobilinogen Normal (Normal); Urine pH 6.5 (5.0 - 8.0)
[2021-03-12 11:13] LABS: Squamous Epithelial Cells - UA 0-5 SEEN /hpf (5-10); White Blood Cells 0-5 SEEN /hpf (0-5)
[2021-03-12 11:14] LABS: Bacteria 1+ /hpf (None Seen)
[2021-03-12 11:24] LABS: ALB/GLOB Ratio 0.9 RATIO (0.9-2.4); AST(SGOT) 28 U/L (15-37); Alanine Aminotransfer ALT/SGPT 34 U/L (13-56); Albumin, Serum 3.6 g/dL (3.2-5.0); Alkaline Phosphatase 111 U/L (45-117); Anion Gap 10 (5-15); BUN 10 mg/dL (7-18); BUN/Creat Ratio 14.5 RATIO (10-20); Calcium,Total 8.7 mg/dL (8.5-10.1); Chloride 106 mmol/L (98-107); Cholesterol 212 mg/dL (200); Creatinine, Serum 0.69 mg/dL (0.55-1.02); EST Glomerular Filtration Rate 90 mL/min (>60); Est Glom Filt Rate - Afr Amer 109 mL/min (>60); Globulin 3.8 g/dL (2.2-4.2); Glucose 119 mg/dL (74-106); High Density Lipoprotein 52 mg/dL; Potassium 3.7 mmol/L (3.5-5.1); Protein, Total 7.4 g/dL (6.4-8.2); Sodium Level 140 mmol/L (136-145); Triglycerides 115 mg/dL; Very Low Density Lipoprotein 23 mg/dL (5-40)
[2021-03-12 11:26] LABS: Vitamin D,25 Hydroxy 29.1 ng/mL
[2021-03-12 11:36] LABS: Microalbumin,Random Urine 5.7 mg/L (NO RANGE EST.); Microalbumin:Creatinine Ratio 6.8 mg/g CRE (<30 mg/g CRE)
== END ==
PROVIDERS: PCP Internal Medicine; Referring Provider Internal Medicine; Visit Provider Internal Medicine
DX: E55.9 Vitamin D deficiency, unspecified (principal); I10 Essential (primary) hypertension; E11.9 Type 2 diabetes mellitus without complications
CPT/HCPCS: 36415; 80053; 80061; 81001; 82043; 82306; 82570; 85025

== ENCOUNTER 2021-06-03 16:10 | Outpatient (CLI) | payer MEDICARE, OTHER, SELFPAY ==
[2021-06-03 16:42] VITALS: BP 110/51; PULSE 99; RESP 16; TEMP 37; O2SAT 98; BMI 26.6
[2021-06-03] MEDS: 0.9% Saline Lock 10 ML Syringe IV (16:42)
[2021-06-03 17:10] VITALS: BP 120/60; PULSE 90; RESP 16; TEMP 36.7; O2SAT 98
[2021-06-03 18:10] VITALS: BP 117/65; PULSE 92; RESP 16; TEMP 36.8; O2SAT 95
== END 2021-06-03 18:10 | disposition home or self-care (01) ==
LOC: MS3OUT 16:10 → MS3 16:12
PROVIDERS: PCP Internal Medicine; Referring Provider Nurse Practitioner Adult Health; Visit Provider Nurse Practitioner Adult Health
DX: Z23 Encounter for immunization (principal); U07.1 COVID-19
CPT/HCPCS: J7050; M0243; A4216; Q0244

== ENCOUNTER 2021-10-19 06:23 | Outpatient (CLI) | payer MEDICARE, OTHER, SELFPAY ==
--- NOTE | 2021-10-19 19:22 | STRESSREP_ITS ---
Stress Test Report 160/80Date: 10-19-2021 Procedure: Exercise tolerance test/imaging study Indications: Abnormal ECG Consent: Per the patient Procedure: The patient exercised on a Aguilar protocol for 5 minutes and 15 completing Stage I and 2 minutes and 15 seconds of Stage II achieving a peak heart rate of 148 bpm (97% predicted maximal heart rate) with a peak blood pressure 160/80 mmHg and a peak MET capacity of 7 METs. The baseline ECG demonstrated normal sinus rhythm. The peak exercise ECG demonstrated somatic/motion artifact with no obvious ECG changes. There was a isolated PVC during recovery. The functional capacity was considered average. There was no complaint of chest discomfort during exercise or recovery. The examination was discontinued secondary to dyspnea. Impression: 1. Technically adequate (percent predicted maximal heart rate greater than 85%) exercise tolerance test 2. Peak exercise ECG with somatic/motion artifact with no obvious ECG changes 3. There was an isolated PVC during recovery 4. Nuclear images pending Myocardial perfusion imaging study: Technique: The patient was injected with 11.0 mCi of technetium 99m Cardiolite and subsequently rest SPECT Cardiolite nuclear imaging was obtained in the horizontal long, vertical long, and short axis views. The patient exercised on a Aguilar protocol for 5 minutes and 15 completing Stage I and 2 minutes and 15 seconds of Stage II achieving a peak heart rate of 148 bpm (97% predicted maximal heart rate) with a peak blood pressure 160/80 mmHg and a peak MET ca pacity of 7 METs. The patient was injected with 33.6 mCi of technetium 99m Cardiolite and subsequently stress SPECT Cardiolite nuclear imaging was obtained in the horizontal long, vertical long, and short axis views. A gated Cardiolite study at peak stress was obtained. Interpretation: Rest and stress SPECT Cardiolite nuclear imaging status post realignment, normalization, and attenuation correction, demonstrates the appearance of relative uniform tracer uptake and myocardial perfusion appearing within normal limits. There is end systolic thickening and brightening. The gated Cardiolite study demonstrates myocardial thickening and inward wall motion. The reported LVEF is 53%. Impression: 1. Rest and stress SPECT Cardiolite nuclear imaging demonstrate relative uniform tracer uptake and myocardial perfusion appearing within normal limits. 2. The gated Cardiolite study reports an LVEF of 53%. This note was generated with [employer] software. It may contain incorrect words, spelling, and punctuation that were not noted in checking the note before signing.
== END 2021-10-19 23:59 | disposition home or self-care (01) ==
LOC: CVS 06:26
PROVIDERS: PCP Internal Medicine; Referring Provider Internal Medicine; Visit Provider Internal Medicine
DX: R94.31 Abnormal electrocardiogram [ECG] [EKG] (principal)
CPT/HCPCS: 78452; 93017; A9500; A4216

== ENCOUNTER 2021-10-26 12:34 | Outpatient (CLI) | payer MEDICARE, OTHER, SELFPAY ==
[2021-10-26 12:38] LABS: Mucous, Urine 0 SEEN /hpf (<or=2+); Red Blood Cells-Urine 0 SEEN /hpf (0-5)
[2021-10-26 13:14] LABS: Absolute Lymphocyte Count 2.16 X10^3/uL (0.83-4.51); Absolute Neutrophil Count 3.4 X10^3/uL (2.0-7.7); Basophil# 0.06 X10^3/uL; Basophil% 0.9 % (0-1); Eosinophil# 0.35 X10^3/uL; Eosinophils% 5.4 % (0-5); Hematocrit 41.9 % (37-47); Hemoglobin 14.6 g/dL (12.0-15.0); Lymphocyte # 2.16 X10^3/ul (0.83-4.51); Lymphocyte % 33.1 % (19-41); Mean Corp Hgb Conc 34.8 g/dL (32-36); Mean Corpuscular Volume 91.9 fL (81-99); Mean Platelet Vol. 9.4 fl (6.2-12.0); Monocyte# 0.49 X10^3/uL; Monocyte% 7.5 % (0-10); NRBC Flagged by Analyzer 0 % (0-5); Neutrophil # 3.42 X10^3/uL (2.7-7.7); Neutrophil % 52.3 % (47-70); Platelet Count 234 K/mm3 (150-450); RBC Distribution Width CV 13.3 % (11.6-14.6); RBC Distribution Width SD 44.5 fl (35.1-43.9); Red Blood Count 4.56 M/mm3 (4.2-5.4); White Blood Count 6.5 K/mm3 (4.4-11.0)
[2021-10-26 13:25] LABS: Color, Urine Yellow (Yellow); Glucose, Dipstick Normal (Normal); Ketone-Dipstick Negative (Negative); Leukocyte Esterase-Dipstick 25 /ul (Negative); Nitrite-Dipstick Negative (Negative); Occult Blood-Urine Negative /ul (Negative); Protein-Dipstick Negative (Negative); Urine Bilirubin Dipstick Negative (Negative); Urine Clarity Clear (Clear); Urine Urobilinogen Normal (Normal)
[2021-10-26 13:33] LABS: Bacteria RARE /hpf (None Seen); Squamous Epithelial Cells - UA 5-10 SEEN /hpf (5-10); White Blood Cells 5-10 SEEN /hpf (0-5)
[2021-10-26 13:35] LABS: Microalbumin,Random Urine 5.2 mg/L (NO RANGE EST.); Microalbumin:Creatinine Ratio 7.5 mg/g CRE (<30 mg/g CRE)
[2021-10-26 13:43] LABS: Vitamin D,25 Hydroxy 38.6 ng/mL
[2021-10-26 13:50] LABS: ALB/GLOB Ratio 0.9 RATIO (0.9-2.4); AST(SGOT) 16 U/L (15-37); Alanine Aminotransfer ALT/SGPT 22 U/L (13-56); Albumin, Serum 3.5 g/dL (3.2-5.0); Alkaline Phosphatase 107 U/L (45-117); Anion Gap 3 (5-15); BUN 15 mg/dL (7-18); BUN/Creat Ratio 20.5 RATIO (10-20); Calcium,Total 9.4 mg/dL (8.5-10.1); Chloride 106 mmol/L (98-107); Cholesterol 232 mg/dL (200); Creatinine, Serum 0.73 mg/dL (0.55-1.02); EST Glomerular Filtration Rate 84 mL/min (>60); Est Glom Filt Rate - Afr Amer 102 mL/min (>60); Globulin 3.9 g/dL (2.2-4.2); Glucose 133 mg/dL (74-106); High Density Lipoprotein 66 mg/dL; Potassium 3.9 mmol/L (3.5-5.1); Protein, Total 7.4 g/dL (6.4-8.2); Sodium Level 140 mmol/L (136-145); Thyroid Stim Hormone (TSH) 0.69 uIU/mL (0.358-3.74); Triglycerides 84 mg/dL; Very Low Density Lipoprotein 17 mg/dL (5-40)
== END 2021-10-26 23:59 | disposition home or self-care (01) ==
LOC: LAB 12:36
PROVIDERS: PCP Internal Medicine; Visit Provider Internal Medicine
DX: E55.9 Vitamin D deficiency, unspecified (principal); I10 Essential (primary) hypertension
CPT/HCPCS: 36415; 80053; 80061; 81001; 82043; 82306; 82570; 84443; 85025

== ENCOUNTER → 2022-05-06 | Outpatient (CLI) | payer MEDICARE, OTHER, SELFPAY ==
[2022-05-06 12:18] LABS: Mucous, Urine 0 SEEN /hpf (<or=2+); Red Blood Cells-Urine 0 SEEN /hpf (0-5)
[2022-05-06 12:29] LABS: Absolute Lymphocyte Count 2.04 X10^3/uL (0.83-4.51); Basophil# 0.06 X10^3/uL; Basophil% 0.9 % (0-1); Eosinophil# 0.27 X10^3/uL; Eosinophils% 3.9 % (0-5); Hemoglobin 14.1 g/dL (12.0-15.0); Lymphocyte # 2.04 X10^3/ul (0.83-4.51); Lymphocyte % 29.8 % (19-41); Mean Corp Hgb Conc 33.6 g/dL (32-36); Mean Corpuscular Hgb 31.1 pg (27.0-32.0); Mean Corpuscular Volume 92.7 fL (81-99); Mean Platelet Vol. 9.5 fl (6.2-12.0); Monocyte# 0.47 X10^3/uL; Monocyte% 6.9 % (0-10); NRBC Flagged by Analyzer 0 % (0-5); Neutrophil # 3.98 X10^3/uL (2.7-7.7); Neutrophil % 58.1 % (47-70); Platelet Count 227 K/mm3 (150-450); RBC Distribution Width CV 13.2 % (11.6-14.6); RBC Distribution Width SD 45.1 fl (35.1-43.9); Red Blood Count 4.53 M/mm3 (4.2-5.4); White Blood Count 6.9 K/mm3 (4.4-11.0)
[2022-05-06 12:56] LABS: Vitamin D,25 Hydroxy 26.4 ng/mL
[2022-05-06 13:01] LABS: Color, Urine Yellow (Yellow); Glucose, Dipstick Normal (Normal); Ketone-Dipstick 5 mg/dl (Negative); Leukocyte Esterase-Dipstick 25 /ul (Negative); Nitrite-Dipstick Negative (Negative); Occult Blood-Urine Negative /ul (Negative); Protein-Dipstick 15 mg/dl (Negative); Urine Bilirubin Dipstick Negative (Negative); Urine Clarity Sl. Cloudy (Clear); Urine Urobilinogen Normal (Normal)
[2022-05-06 13:04] LABS: ALB/GLOB Ratio 0.9 RATIO (0.9-2.4); AST(SGOT) 26 U/L (15-37); Alanine Aminotransfer ALT/SGPT 41 U/L (13-56); Albumin, Serum 3.6 g/dL (3.2-5.0); Alkaline Phosphatase 104 U/L (45-117); Anion Gap 8 (5-15); BUN 14 mg/dL (7-18); BUN/Creat Ratio 17.3 RATIO (10-20); Chloride 105 mmol/L (98-107); Cholesterol 210 mg/dL (200); Creatinine, Serum 0.81 mg/dL (0.55-1.02); EST Glomerular Filtration Rate 75 mL/min (>60); Est Glom Filt Rate - Afr Amer 91 mL/min (>60); Globulin 3.9 g/dL (2.2-4.2); Glucose 129 mg/dL (74-106); High Density Lipoprotein 57 mg/dL; Protein, Total 7.5 g/dL (6.4-8.2); Sodium Level 141 mmol/L (136-145); Thyroid Stim Hormone (TSH) 0.79 uIU/mL (0.358-3.74); Triglycerides 91 mg/dL; Very Low Density Lipoprotein 18 mg/dL (5-40)
[2022-05-06 13:08] LABS: Bacteria 1+ /hpf (None Seen); Squamous Epithelial Cells - UA 0-5 SEEN /hpf (5-10); White Blood Cells 0-5 SEEN /hpf (0-5)
[2022-05-07 00:10] LABS: Microalbumin,Random Urine 9.2 mg/L (NO RANGE EST.); Microalbumin:Creatinine Ratio 4.8 mg/g CRE (<30 mg/g CRE)
== END | disposition home or self-care (01) ==
LOC: LAB 12:14
PROVIDERS: PCP Internal Medicine; Referring Provider Internal Medicine; Visit Provider Internal Medicine
DX: R80.9 Proteinuria, unspecified (principal); E11.9 Type 2 diabetes mellitus without complications; E55.9 Vitamin D deficiency, unspecified; I10 Essential (primary) hypertension
CPT/HCPCS: 36415; 80053; 80061; 81001; 82043; 82306; 82570; 84443; 85025

== ENCOUNTER → 2022-11-23 | Outpatient (CLI) | payer MEDICARE, OTHER, SELFPAY ==
[2022-11-23 11:38] LABS: Bacteria 0 SEEN /hpf (None Seen); Mucous, Urine 0 SEEN /hpf (<or=2+); Red Blood Cells-Urine 0 SEEN /hpf (0-5); White Blood Cells 0 SEEN /hpf (0-5)
[2022-11-23 12:29] LABS: Absolute Lymphocyte Count 2.62 X10^3/uL (0.83-4.51); Basophil# 0.05 X10^3/uL; Basophil% 0.6 % (0-1); Eosinophil# 0.75 X10^3/uL; Eosinophils% 9.4 % (0-5); Hematocrit 44.8 % (37-47); Hemoglobin 14.9 g/dL (12.0-15.0); Lymphocyte # 2.62 X10^3/ul (0.83-4.51); Lymphocyte % 32.7 % (19-41); Mean Corp Hgb Conc 33.3 g/dL (32-36); Mean Corpuscular Volume 93.3 fL (81-99); Mean Platelet Vol. 9.8 fl (6.2-12.0); Monocyte# 0.55 X10^3/uL; Monocyte% 6.9 % (0-10); NRBC Flagged by Analyzer 0 % (0-5); Neutrophil % 49.9 % (47-70); Platelet Count 277 K/mm3 (150-450); RBC Distribution Width CV 13.7 % (11.6-14.6); RBC Distribution Width SD 46.5 fl (35.1-43.9)
[2022-11-23 12:34] LABS: Color, Urine Yellow (Yellow); Glucose, Dipstick 1000 mg/dl (Normal); Ketone-Dipstick 5 mg/dl (Negative); Leukocyte Esterase-Dipstick Negative /ul (Negative); Nitrite-Dipstick Negative (Negative); Occult Blood-Urine Negative /ul (Negative); Protein-Dipstick Negative (Negative); Urine Bilirubin Dipstick Negative (Negative); Urine Clarity Clear (Clear); Urine Urobilinogen Normal (Normal)
[2022-11-23 12:59] LABS: Squamous Epithelial Cells - UA 0-5 SEEN /hpf (5-10)
[2022-11-23 13:08] LABS: Vitamin D,25 Hydroxy 34.7 ng/mL
[2022-11-23 13:18] LABS: Microalbumin,Random Urine 14.7 mg/L (NO RANGE EST.); Microalbumin:Creatinine Ratio 13.9 mg/g CRE (<30 mg/g CRE)
[2022-11-23 13:27] LABS: AST(SGOT) 30 U/L (15-37); Alanine Aminotransfer ALT/SGPT 31 U/L (13-56); Albumin, Serum 3.6 g/dL (3.2-5.0); Alkaline Phosphatase 98 U/L (45-117); Anion Gap 7 (5-15); BUN 20 mg/dL (7-18); BUN/Creat Ratio 25.2 RATIO (10-20); Chloride 105 mmol/L (98-107); Cholesterol 229 mg/dL (200); Creatinine, Serum 0.79 mg/dL (0.55-1.02); EST Glomerular Filtration Rate 76 mL/min (>60); Est Glom Filt Rate - Afr Amer 92 mL/min (>60); Globulin 3.6 g/dL (2.2-4.2); Glucose 196 mg/dL (74-106); High Density Lipoprotein 49 mg/dL; Potassium 4.1 mmol/L (3.5-5.1); Protein, Total 7.2 g/dL (6.4-8.2); Sodium Level 138 mmol/L (136-145); Thyroid Stim Hormone (TSH) 0.79 uIU/mL (0.358-3.74); Triglycerides 129 mg/dL; Very Low Density Lipoprotein 26 mg/dL (5-40)
== END | disposition home or self-care (01) ==
LOC: LAB 11:34
PROVIDERS: PCP Internal Medicine; Referring Provider Internal Medicine; Visit Provider Internal Medicine
DX: E78.2 Mixed hyperlipidemia (principal); E11.9 Type 2 diabetes mellitus without complications; E55.9 Vitamin D deficiency, unspecified; I10 Essential (primary) hypertension
CPT/HCPCS: 36415; 80053; 80061; 81001; 82043; 82306; 82570; 84443; 85025

== ENCOUNTER → 2023-02-22 | Outpatient (CLI) | payer MEDICARE, OTHER, SELFPAY ==
[2023-02-22 12:13] LABS: AST(SGOT) 18 U/L (15-37); Alanine Aminotransfer ALT/SGPT 26 U/L (13-56); Albumin, Serum 3.5 g/dL (3.2-5.0); Alkaline Phosphatase 109 U/L (45-117); Bilirubin, Direct 0.16 mg/dL (0.00-0.30); Cholesterol 128 mg/dL (200); Globulin 3.9 g/dL (2.2-4.2); High Density Lipoprotein 60 mg/dL; Protein, Total 7.4 g/dL (6.4-8.2); Triglycerides 90 mg/dL; Very Low Density Lipoprotein 18 mg/dL (5-40)
== END | disposition home or self-care (01) ==
LOC: LAB 10:43
PROVIDERS: PCP Internal Medicine; Referring Provider Internal Medicine; Visit Provider Internal Medicine
DX: E78.2 Mixed hyperlipidemia (principal)
CPT/HCPCS: 36415; 80061; 80076

== ENCOUNTER → 2023-05-03 | Outpatient (CLI) | payer MEDICARE, OTHER, SELFPAY ==
--- NOTE | 2023-05-03 12:27 | BD_ITS ---
STUDY: DUAL ENERGY X-RAY ABSORPTIOMETRY / DXA REASON FOR EXAM: Female, 67 years old. 627.8Menopausal postmenopausal BONE DENSITY REASON FOR EXAM TECHNIQUE: Bone Mineral Density (BMD) measurements of lumbar spine and bilateral hips were obtained. COMPARISON: Comparison is made with prior study of January 13, 2021. FINDINGS: Lumbar Spine (L1-L4): g/cm2 (1.054) / T-score (0.1) / Z-score (2.1) Findings are suggestive of normal bone density with a low fracture risk. Left Femur Total: g/cm2 (0.841) / T-score (-0.8) / Z-score (0.6) Left Femoral Neck: g/cm2 (0.646) / T-score (-1.8) / Z-score (-0.1) Right Femur Total: g/cm2 (0.840) / T-score (-0.8) / Z-score (0.6) Right Femoral Neck: g/cm2 (0.698) / T-score (-1.4) / Z-score (0.4) The T-Scores on the most recent prior examination were: Lumbar Spine (L1-L4): There has been worsening of bone density since the previous examination. Left Femur Total: which represents an improvement of 0.5%. Right Femur Total: which represents an improvement of 0.6%. BD/Dexa Bone Density Study IMPRESSION: The patient is considered osteopenic as outlined below according to World Shimon Organization (WHO) criteria with a moderate fracture risk. There has been improvement of bone density since the previous examination. Reference Information: The T-score is the number of standard deviations above or below the standard which is normal for young adults at their peak bone mineral density. The World Health Organization (WHO) interprets the T-scores as follows: Above -1 Normal bone density Between -1 and -2.5 Osteopenia Equal to / or below -2.5 Osteoporosis As a practical clinical guideline, osteopenia may be graded as follows: Mild -1 through -1.5 Moderate -1.6 through -2.0 Severe -2.1 through -2.4 The Z-score is the number of standard deviations above or below age-matched controls. A Z-score of less than -1.5 would be considered abnormal. References: 1. NIH Osteoporosis and Related Bone Diseases www osteo.org 2. International Society for Clinical Densitometry www iscd.org 3. National Osteoporosis Foundation www nof.org Electronically Signed: Mitch Street MD at 14:40 EDT ,
== END | disposition home or self-care (01) ==
LOC: OPBD 12:25
PROVIDERS: PCP Internal Medicine; Referring Provider Internal Medicine; Visit Provider Internal Medicine
DX: Z78.0 Asymptomatic menopausal state (principal)
CPT/HCPCS: 77080

== ENCOUNTER 2023-06-09 05:33 | Day surgery (SDC) | payer MEDICARE, OTHER, SELFPAY ==
--- NOTE | 2023-05-30 12:14 | EKG12_ITS ---
Test Reason : PRE OP Blood Pressure : / mmHG Vent. Rate : 108 BPM Atrial Rate : 108 BPM P-R Int : 170 ms QRS Dur : 082 ms QT Int : 340 ms P-R-T Axes : 046 -33 087 degrees QTc Int : 455 ms Sinus tachycardia Left axis deviation Abnormal ECG Confirmed by MATTEO SIM, MARYLIN ([id number]), international editorial producer DUDLEY CEDENO ([id number]) on 05/31/2023 2:14:38 PM Referred By: Luis Veras Confirmed By:MARYLIN FELIPE MD
--- NOTE | 2023-05-30 12:40 | RAD_ITS ---
EXAM: XR CHEST, 2 VIEWS CLINICAL INDICATION: PREOP TECHNIQUE: Frontal and lateral views of the chest. COMPARISON: No relevant prior studies available. FINDINGS: LUNGS AND PLEURAL SPACES: Unremarkable. No consolidation or edema. No pneumothorax. No effusion. HEART: Unremarkable. Cardiac silhouette not enlarged. MEDIASTINUM: Central airways and mediastinal contour are unremarkable. BONES/JOINTS: Unremarkable. SOFT TISSUES: Right axillary clips. RAD/Chest PA and Lateral IMPRESSION: No acute findings in the chest. Electronically Signed: Mina Gallo MD at 4:37 EDT ,
[2023-05-30 13:19] LABS: Absolute Lymphocyte Count 1.99 X10^3/uL (0.83-4.51); Absolute Neutrophil Count 3.3 X10^3/uL (2.0-7.7); Basophil# 0.06 X10^3/uL; Eosinophil# 0.25 X10^3/uL; Eosinophils% 4.1 % (0-5); Hemoglobin 13.4 g/dL (12.0-15.0); Lymphocyte # 1.99 X10^3/ul (0.83-4.51); Lymphocyte % 32.8 % (19-41); Mean Corp Hgb Conc 34.4 g/dL (32-36); Mean Corpuscular Hgb 31.9 pg (27.0-32.0); Mean Corpuscular Volume 92.9 fL (81-99); Mean Platelet Vol. 9.1 fl (6.2-12.0); Monocyte# 0.44 X10^3/uL; Monocyte% 7.2 % (0-10); NRBC Flagged by Analyzer 0 % (0-5); Neutrophil % 54.4 % (47-70); Platelet Count 274 K/mm3 (150-450); RBC Distribution Width CV 13.9 % (11.6-14.6); White Blood Count 6.1 K/mm3 (4.4-11.0)
[2023-05-30 13:47] LABS: Magnesium 1.6 mg/dL (1.6-2.6)
[2023-05-30 13:58] LABS: Albumin, Serum 3.6 g/dL (3.2-5.0); Anion Gap 7 (5-15); BUN 14 mg/dL (7-18); BUN/Creat Ratio 17.8 RATIO (10-20); Calcium,Total 8.9 mg/dL (8.5-10.1); Chloride 105 mmol/L (98-107); Creatinine, Serum 0.78 mg/dL (0.55-1.02); EST Glomerular Filtration Rate 77 mL/min (>60); Est Glom Filt Rate - Afr Amer 93 mL/min (>60); Glucose 176 mg/dL (74-106); Potassium 3.8 mmol/L (3.5-5.1); Sodium Level 140 mmol/L (136-145)
[2023-06-09] VITALS (17 sets, daily range): BP systolic 128–160; BP diastolic 74–99; PULSE 85–102; RESP 14–94; TEMP 36.2–36.9; O2SAT 90–96; BMI 26.1
[2023-06-09] MEDS: Celecoxib 200 MG Capsule 400 MG PO ×2 (06:13→06:14)
[2023-06-09] MEDS: Gabapentin 600 MG Tablet PO (06:13)
[2023-06-09] MEDS: Magnesium 2 GM for ERAS IV (06:14)
[2023-06-09] MEDS: Lactated Ringers 1,000 ML 999 ML IV ×2 (06:15→10:00)
[2023-06-09] MEDS: Acetaminophen 500 MG Tablet 1000 MG PO (06:16)
--- NOTE | 2023-06-09 07:30 | BON_PTH ---
PATIENT: MARTY LARA [place] [facility] [place][id number] AGE/SX: 67/F ROOM: RE06/09/[address]: Dr. Luis Veras DO : 1955 BED: DIS: 06/09/2023 SPEC #: [id number] RECD: 06/09/23 11:09 STATUS: SHELLEY RECj #: [id number] MILAD: 06/09/23 07:[address]: Luis Veras DEPT: SURGICAL PATHOLOGY RECD BY: Elly Sylvester ENTERED: 06/09/23 11:36 SP TYPE: Bone OTHR DR: Dr. Kalyn Gordon DO Tissues: Shoulder, NOS Procedures: Decalcification bone/plaque Surgery Specimen Level IV HEADER OPERATION: ERAS, total shoulder replacement PRE-OP DIAGNOSIS: Severe left shoulder osteoarthritis TISSUE SUBMITTED: Left shoulder humeral head MICROSCOPIC DIAGNOSIS Bone and tissue of left shoulder, total shoulder replacement: Severe degenerative joint disease. AM:fernando 06/15/2023 MICROSCOPIC DESCRIPTION Slides are reviewed. GROSS DESCRIPTION Received is one container labeled with the patient's name and designated left shoulder humeral head. The specimen consists of a discoid fragment of bone measuring 5.0 x 4.7 x 2.5 cm. The articular surfaces display prominent osteophyte formation, eburnation and bone erosion. Administrative Job Titles sections are submitted in one cassette after decalcification. / AM:fernando 06/09/2023 TC:5 CPT: 70070, 55572
[2023-06-09] MEDS: Clindamycin 900 MG/50 ML BAG 75 MG IV (07:39)
[2023-06-09] MEDS: TXA 1000mg in NS100 100ml (IVPB at Incision) 660 MG IV (08:00)
[2023-06-09] MEDS: TXA 1000mg in NS100 100ml (IVPB at Closure) 660 MG IV (09:41)
--- NOTE | 2023-06-09 10:25 | RAD_ITS ---
HISTORY: post op -- AP and Lateral X-Ray of operative shoulder in PACU. TECHNIQUE: XR Shoulder Min 2 Views. COMPARISON: 10/11/2022. FINDINGS: BONES : No acute fracture or abnormal periprosthetic lucency identified. JOINTS: Reverse left shoulder arthroplasty in place without dislocation. Mild acromioclavicular degenerative change without subluxation. SOFT TISSUES: Surgical clips in the axilla. RAD/Shoulder min 2 Views IMPRESSION: Satisfactory postoperative alignment of left shoulder arthroplasty. Electronically Signed: La Nena Ahumada MD at 13:02 EDT ,
--- NOTE | 2023-06-09 10:46 | PCM.OPRPT ---
Report of Operation Date of Procedure: 06/09/23 Description of Surgical Findings:: Preoperative diagnosis: Left shoulder osteoarthritis with deficient rotator cuff Postoperative diagnosis: Left shoulder osteoarthritis with deficient rotator cuff Procedure: Left reverse total shoulder arthroplasty Surgeon: Luis Veras DO Field Coil Winder: Mey Gutierrez PA-C Anesthesia: General endotracheal Lock Tender Chief Operator: Vladimir Mena CRNA Complications: None apparent Drains: None Estimated blood loss: 150 cc Urinary output: None IV fluids: 1500 cc crystalloid Specimens: Left proximal humerus resection Surgical implants: Tornier Aequalis PerFORM+ reversed baseplate 29 mm diameter full wedge, standard glenosphere cobalt chrome 39 mm diameter, Tornier perform inlay plus stem size 2, + 0 mm retentive size number 3 39 mm diameter polyethylene insert, short central post and peripheral screws x4. Surgical indications: This is a 67-year-old female with persistent left shoulder pain. X-rays revealed suspected primary osteoarthritis of the left shoulder. Patient had significant restriction of motion and weakness with rotator cuff testing. She failed nonoperative management form of activity modification, NSAIDs, physical therapy, and intra-articular corticosteroid injections. We discussed surgical intervention in the form of left reverse shoulder arthroplasty versus anatomic arthroplasty. We obtained a preoperative CT scan for planning. Superior migration of the humeral head was noted on CT scan and I recommended we perform a left reverse shoulder arthroplasty. The risks, benefits, alternatives the procedure was reviewed with the patient and he agreed to proceed. Risks included but were not limited to bleeding, infection, instability, loss of life or limb, risk of anesthesia, neurovascular injury, persistent pain, stiffness, prolonged immobilization, need for additional surgery, loosening of orthopedic hardware. She expressed understanding and wished to proceed with surgery. Surgical details: Patient arrived to [facility] morning of the procedure and was greeted by the same day surgery staff. Prior to the procedure, I greeted the patient in the preoperative holding area I identified the patient by name, record number, and date of . Informed consent was confirmed. The operative extremity was marked. All questions were answered to patient satisfaction. An interscalene block was administered prior to procedure by anesthesia staff for postoperative and intraoperative analgesia. At time of her procedure, patient was brought to the operative suite and positioned supine on a standard table with a beachchair attachment. General anesthesia was induced after all bony prominences were well-padded. Endotracheal tube was placed. After adequate anesthesia and securing the tube, we prepared the patient to be positioned in the beachchair position. A well-padded head inspector and center marker was applied. The nonoperative extremity was placed in a well arm pozo. She was then brought into the beachchair position after we confirmed an appropriate blood pressure. We then spun the bed 45 degrees. The operative extremity was then prepared. Then the butterfly wing of the bed was removed and a well-padded torso strap was applied to secure the patient to the bed. The operative extremity was now free. We then prepped and draped the right upper extremity in normal, sterile orthopedic fashion. We then performed a timeout with all parties in attendance in agreement with the side, site, and operation be performed. 900 mg Cleocin IV was administered prior to incision by anesthesia staff, as well as 1 g TXA IV. No concerns were voiced and we elected to proceed. I first marked a standard deltopectoral incision just lateral to the coracoid process in line with the long axis of the humerus. Skin was sharply incised with 10 blade scalpel. I then dissected bluntly through the subcutaneous layers and found the fat stripe between the deltoid and pectoralis major. The cephalic vein was then identified and protected. It was retracted laterally with the deltoid. I then bluntly dissected underneath the deltoid with a Landaverde elevator. Sam retractor was placed. The upper 1 cm of the pectoralis major was released. I then identified the long head of the biceps tendon in the intertubercular groove. This was tenodesed in situ with #2 FiberWire. I then amputated the biceps proximal to the tenodesis site and followed the tendon to the supraglenoid tubercle where it was amputated. This identified the lesser and greater tuberosities. The supraspinatus was completely torn and retracted with an exposed greater tuberosity. I then performed a subscapularis peel while rotating the humerus externally. I tagged the subscapularis for possible repair later with a tagging suture. Humeral head was then dislocated anteriorly. Appropriate access to the humeral head was confirmed. I then subluxed the humeral head posteriorly with a Fukuda retractor placed around the posterior lip of the glenoid. Inferior capsule was tension. I was able to palpate the axillary nerve. Inferior capsule was then released to the 4 o'clock position of the glenoid face. 3 sided subscapularis release was performed with Bovie cautery. I then remove the Fukuda retractor and redislocated the shoulder anteriorly. I then made a anatomic neck cut of the cartilaginous surface of the humeral head. Periarticular osteophytes were removed especially along the inferior aspect the humeral head. Sizing plate for a size # 2 stem was utilized to determine appropriate reaming size. A central pin was placed engaging the lateral cortex of the humerus. A size # 2 reamer was used to ream the humeral metaphysis and prepare for the inlay stem. A canal finding reamer was utilized prior to sequential broaching to a size # 2 short stem with excellent rotational and axial purchase in the humerus. I remove the broach handle left the size # [address] I then subluxed the humerus posterior to the glenoid. I then placed retractors around the posterior and anterior glenoid to expose the glenoid. Glenoid labrum was removed with Bovie cautery protecting the axillary nerve. We then used the custom guide from [employer] to position our centering pin, exiting approximately 25 mm from the joint surface along the anterior scapula. Guide was removed and pin was analyzed and compared to preoperative planning. It appeared to be in appropriate position. The wedge shaped reamer was then placed over top of the centering pin. I reamed a flat surface of the glenoid using the wedge reamer. We then removed the reamer and used the cannulated drill for the short central post. Post and baseplate was assembled on the back table. We then inserted the baseplate and central post the assembled baseplate to an appropriate depth with good press-fit purchase. A Mccaulley was used to confirm depth. Peripheral screws then were placed in the peripheral holes with good purchase. The baseplate had excellent purchase and the entire scapula would rotate with rotation of the baseplate. We then impacted the 39 mm glenosphere with a standard eccentricity and tightened the locking screw mechanism. We then removed retractors and turned our attention back to the humerus. I placed a standard + 0 millimeters retentive polyethylene insert. I then reduced the shoulder. There was excellent range of motion and stability in all planes of motion. We selected this as our final size. We removed trials from the humerus after final dislocation. I copiously irrigated the canal. Given lackluster proximal humeral bone quality, elected to place a slightly longer stem utilizing a plus size. Humeral stem was placed on hand and then impacted to an appropriate depth. Final + 0 mm retentive polyethylene insert was placed. Final reduction was then performed. The subscapularis was then identified with a tagging suture. Repair would have been likely under undue tension and likely failed. I elected to not perform a subscapularis repair. We then copiously irrigated the wound with a 3-minute dilute sterile Betadine soak and normal saline solution. We reapproximated the interval with 0 Vicryl suture. Subcutaneous layers were reapproximated with 2 -0 Vicryl suture. Skin was finally running V-Loc 3-0 Monocryl suture and Dermabond. A sterile silver Mepilex dressing was applied. Patient was then placed in an ultra sling. Patient tolerated procedure well without complication. She was positioned back in the supine position extubated in the operative suite. She was transferred to the [facility] and subsequently to PACU in stable condition. Need for skilled therapy administrative assistant: Mey Gutierrez PA-C was critical to the outcome of the case. During the course of the procedure the physician therapy administrative assistant played a vital role. Her intimate knowledge of my steps in the procedure aided in safe and expedient completion of the procedure. The PA played a vital role in positioning particularly in obtaining the appropriate positioning. The PA was also vital in the retraction of soft tissues during the exposure and protecting vital structures. The PA was also vital and protecting soft tissues during times of bony cuts. She also played a vital role in closure with my direct supervision. The PA was also important during reduction and dislocation of the joint and trials intraoperatively. Intraoperative medications: 900 mg IV Cleocin, 1 g TXA IV x2 Post Operative Plan: After meeting same-day surgery criteria, we plan to discharge the patient home today. Weightbearing: Nonweightbearing left upper extremity, okay for pendulums. Range of motion of wrist elbow and hand as tolerated. Antibiotics: 900 mg Cleocin prior to incision, repeat dosing prior to discharge IV. Plan for 7 days oral clindamycin due to patient risk factors with diabetes and obesity. DVT Prophylaxis: Aspirin enteric-coated 81 mg twice daily starting tomorrow Dorsey: None Dressing: Maintain silver dressing x7 days. Okay to shower dressing on started on day 4 X-Rays: 2 weeks postop in the office Pain Medication: Oxycodone Rx upon discharge Follow-up: 2 weeks post-operatively with me in the office
[2023-06-09] MEDS: Lactated Ringers 1,000 ML 125 ML IV (11:04)
[2023-06-09 13:23] LABS: Bedside Glucose 164 mg/dL (74-106)
--- NOTE | 2023-06-09 13:56 | DCINST_ITS ---
Discharge Instructions Follow Up Care Test Results: Test results from this visit will be discussed in further detail at your follow- up appointment, if applicable. Discharge Plan Admission Primary Reason for Your Visit: Left reverse shoulder replacement Attending Provider: Luis Veras Primary Care Provider: Kalyn Gordon Instructions Additional Instructions / Restrictions: Follow preprinted instructions from your surgeon's office. Discharge Orders/Prescriptions Prescriptions: New clindamycin HCl 300 mg capsule 300 mg PO Q8H 7 Days Qty: 21 0RF Continued lisinopril-hydrochlorothiazide 20-12.5 mg tablet 1 tab PO DAILY Patient Comments: TAKE 1 TABLET BY MOUTH EVERY DAY metformin 500 mg tablet extended release 24 hr 1,000 mg PO BID Patient Comments: TAKE 2 TABLETS BY MOUTH TWICE A DAY rosuvastatin 10 mg tablet 10 mg PO QHS Patient Comments: TAKE 1 TABLET BY MOUTH AT BEDTIME Ozempic 1 mg/dose (4 mg/3 mL) pen injector 1 mg SUBCUT QWEEK Patient Comments: INJECT ONCE UNDER THE SKIN ONE TIME PER WEEK venlafaxine 150 mg capsule,extended release 24hr 150 mg PO QHS Patient Comments: TAKE 1 CAPSULE BY MOUTH EVERY DAY Referrals / Follow Up: Kalyn Gordon DO [Primary Care Provider] - Luis Veras DO [Med Staff - Active Staff] - Disposition Disposition (needs filled in before D/C Order can be placed): Home, Self Care
== END 2023-06-09 14:32 | disposition home or self-care (01) ==
LOC: SDC 05:34 → AC 05:51
PROVIDERS: Anesthesiology; PCP Internal Medicine; Referring Provider Student in an Organized Health Care Education/Training Program; Visit Provider Student in an Organized Health Care Education/Training Program
PROC: (CPT 23472; principal; 2023-06-09 07:00)
DX: M19.012 Primary osteoarthritis, left shoulder (principal); E11.9 Type 2 diabetes mellitus without complications; I10 Essential (primary) hypertension; F32.A Depression, unspecified; E78.00 Pure hypercholesterolemia, unspecified; F41.9 Anxiety disorder, unspecified; Z79.899 Other long term (current) drug therapy; Z79.84 Long term (current) use of oral hypoglycemic drugs
CPT/HCPCS: 23472; 64415; 01638; 36415; 71046; 73030; 80048; 82040; 82962; 83036; 83735; 85025; 87081; 88305; 88311; 93005; C1776; J7040; J7120; J2405

== ENCOUNTER 2023-07-12 12:52 | Outpatient (RCR) | payer MEDICARE, OTHER, SELFPAY ==
--- NOTE | 2023-07-12 15:10 | HP.OTEVAL_ITS ---
Patient's Visit Information Visit Information Visit Information: MARTY LARA is a 67 year old F, referred to Occupational Therapy by Dr. Luis Veras, , with a diagnosis of lymphedema. 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 pt states initially she had swelling around her elbow after her sx. pt states when cleared her to initiate PT for shoulder PROM and AROM the swelling resolved. pt has hx of cancer and right UE lymph node removal- Feels wanted to make sure she was OK and if she needed tx for lymphedema we were ahead of dx. Lymphedema (Circumferential Measure) MCP: right 19cm left 19cm Wrist: right 15.5cm left 15cm Lower forearm: right 18cm left 17.5cm Largest forearm: right 24cm left 23cm Elbow: right 24cm left 24.4cm Largest humerus: right 28cm left 26cm Axcillary: right 32cm left 30cm Upper Exremity Comments: pt demo with no increase in left Quick DASH-Disab of Arm,Shoulder& Hand Quick DASH Score: 15.9075 Rehabilitation General Assessment: s/p 4 weeks and 5 days from left shoulder sx. pt arrives with sling on left UE- fits well- pt only where when out of home- pt left UE dry and demo muscle atrophy from limited use- no noted swelling at this time in left UE. pt at this time does not demo need for skilled OT services. pt will cont with her PT to rehab her right shoulder.pt agrees pt was given contact info if she has questions she can call or email this therapist. pt was grateful for assessment and pleased by Dr. Veras's attention to her care. Visit Plan TEXT: Thank you for the opportunity to evaluate your patient. For Medicare and Medicare HMO plans, please review the plan of care and approve it. It will need to be FAXED BACK to us at [phone] for Medicare purposes. Please let me know if there are questions or concerns regarding this plan of care. Physician Signature: Date:
== END 2023-07-12 19:00 | disposition home or self-care (01) ==
LOC: OT 12:52
PROVIDERS: PCP Internal Medicine; Visit Provider Student in an Organized Health Care Education/Training Program
DX: Z96.612 Presence of left artificial shoulder joint (principal)
CPT/HCPCS: 97166

== ENCOUNTER → 2023-11-17 | Outpatient (CLI) | payer MEDICARE, OTHER, SELFPAY | END | disposition home or self-care (01) | PROVIDERS: PCP Internal Medicine; Visit Provider Podiatrist Foot & Ankle Surgery | DX: L02.611 Cutaneous abscess of right foot (principal) | CPT/HCPCS: 87070; 87075; 87077; 87101; 87186; 87205 ==

== ENCOUNTER 2023-11-18 13:47 | Inpatient (IN) | payer MEDICARE, OTHER, SELFPAY ==
[2023-11-18 13:55] VITALS: BP 143/79; PULSE 102; RESP 12; TEMP 36.4; O2SAT 93
[2023-11-18 13:59] VITALS: BMI 25.8
[2023-11-18] MEDS: Acetaminophen 325 MG Tablet 650 MG PO ×2 (14:01→20:48)
--- NOTE | 2023-11-18 14:03 | PCM.CONS.GEN ---
Assessment & Plan Assessment/Plan (1) Diabetic infection of right foot: PLAN: Plan Patient is a 68-year-old female who presented to [facility] on 11/18/2023 as a direct admit under podiatry for a worsening right toe wound. Medicine consulted for assistance with medical management. 1. Right toe wound ? Podiatry primary. Infectious disease and wound care consulted. ? Hemodynamically stable, afebrile, very mild leukocytosis, labs otherwise fairly benign, sepsis ruled out. ? S/p I&D with podiatry on 11/16, cultures pending. ? Treating with IV vancomycin, ceftriaxone and p.o. Flagyl per ID recs. ESR and CRP ordered. MRI right foot ordered per podiatry recommendations. Okay for diabetic diet for now, n.p.o. at midnight in case of need for procedure. 2. Type 2 diabetes mellitus ? Home regimen of metformin without milligrams twice daily, Ozempic 1 mg subcu weekly. Last A1c 7.0% on 05/30/2023. Blood glucose 246 on admit. Repeat A1c ordered. Will start sliding scale insulin with meals now, adjust as needed. Chronic medical conditions: ? Hyperlipidemia: Continue home statin. ? Anxiety/depression: Continue home venlafaxine. ? Hypertension: Will hold home lisinopril?hydrochlorothiazide for now, restart as needed. DVT prophylaxis: SCDs CODE STATUS: Full code, unverified Expected disposition: TBD Total clinical time spent by myself addressing the patient's medical issues, reviewing all the data, and collaborating with patient's care team: 35 minutes. HPI Consult Data Date of Consult: 11/18/23 HPI Narrative Reason for Consultation: Medical management HPI Narrative: MARTY LARA, is a 68 F who presented to [facility] on 11/18/2023 as a direct admit under podiatry for a worsening right third toe wound. Medicine consulted for assistance with medical management. Patient seen at bedside on the floor. Sitting up comfortably in bed, conversing normally, no acute distress. Patient's right foot was open to air and she had a significant right third toe wound with swelling and redness extending up to the medial ankle. Dr. Moran was in the room when I saw the patient and he attempted to palpate the toe, but patient had significant pain with any touching of the toe. Patient is a type II diabetic not on insulin and has no significant history of lower extremity wounds. Patient apparently had a small blister on the toe that she tried to manage at home and she began to have worsening pain and swelling of the toe after that. She saw Dr. Moran in the office yesterday and he performed an I&D on the toe, then started the patient on oral doxycycline and levofloxacin. She had redness down to the base of the toe only at that time, and the redness has spread considerably since yesterday. She saw Dr. Braswell in the office today for follow up and he sent her to the hospital for admission. Patient denies any fevers or chills. She denies any other symptoms aside from right toe pain and swelling. She has been taking Tylenol and ibuprofen every 4-6 hours as needed with moderate relief of the pain. She has no other acute concerns this time. [facility] Medical History Anemia Anxiety Arthritis Asthma Depression Diabetes Fatty liver High cholesterol History of echocardiogram History of stress test Hypertension Leg cramps Leukemia Non-smoker Post-menopausal Wears partial dentures Home Medications metformin 500 mg tablet,extended release 24 hr 1,000 mg PO BID blood sugar 06/03/21 [History Last Taken 11/17/23] lisinopril 20 mg-hydrochlorothiazide 12.5 mg tablet 1 tab PO DAILY bp 10/11/22 [History Last Taken 11/17/23] rosuvastatin 10 mg tablet 10 mg PO QHS cholesterol 05/25/23 [History Last Taken 11/17/23] semaglutide 1 mg/dose (4 mg/3 mL) subcutaneous pen injector (Ozempic) 1 mg subcut QWEEK diabetes 05/25/23 [History Last Taken 11/14/23] venlafaxine 150 mg capsule,extended release 24 hr 150 mg PO QHS anxiety/depression 05/25/23 [History Last Taken 11/17/23] clindamycin HCl 300 mg capsule 300 mg PO Q8H 7 days #21 caps 06/09/23 [Rx Last Taken Unknown] Allergy/AdvReac Type Severity Reaction Status Date / Time prochlorperazine Allergy Severe anxiety Verified 06/09/23 06:04 [From Compazine] and itching Penicillins Allergy unknown Verified 06/09/23 06:04 Surgical History History of esophagogastroduodenoscopy (EGD) Hx of bilateral mastectomy Hx of breast surgery Hx of colonoscopy Hx of hysterectomy Hx of left breast implant Hx of lumpectomy Social History Smoking Status: Never smoker ROS Constitutional Constitutional: Denies chills, fatigue, fever(s) or weakness Cardiovascular Cardiovascular: Denies chest pain Respiratory/Chest Respiratory/Chest: Denies shortness of breath at rest Gastrointestinal Gastrointestinal: Denies abdominal pain Musculoskeletal Musculoskeletal: Reports other Details: Right toe swelling and redness up to the ankle Neurologic Neurologic: Denies abnormal gait, numbness or paresthesias Physical Exam Const alert, oriented x3 and no apparent distress Constitutional Narrative: Pleasant elderly female, sitting up comfortably in bed, conversing normally, no acute distress. General Appearance: cooperative and comfortable HEENT normocephalic, head/scalp atraumatic, hearing grossly normal bilaterally, nasal mucous membranes and turbinates normal and moist oral mucous membranes Eyes PERRL, EOMs intact bilaterally and conjunctivae normal Neck full ROM Chest inspection of chest normal Resp normal respiratory effort, normal air movement, no use of accessory muscles and clear to auscultation bilaterally Cardio regular rate, regular rhythm, no murmurs and peripheral pulses 2+ throughout GI normal to inspection, nondistended, normoactive bowel sounds Extremity Extremity Narrative: Right third toe with significant swelling and tenderness to palpation, with erythema up to the medial ankle. Neuro moves all extremities and no focal motor deficits Speech: speech normal Psych mental status grossly normal Lab / Micro Data 11/18/23 14:30 11/18/23 14:30 Charges/Coding Visit Charges Inpatient E&M: 39943 Subs Hosp L2
--- NOTE | 2023-11-18 14:36 | PCM.HP.STD ---
HPI - General General Date of Admission: 11/18/23 Date of Service: 11/18/23 HPI Narrative MARTY LARA, is a 68 F who presented to clinic this morning due to issues with bandage right foot. She had I+D done right 2nd toe yesterday by Dr. Moran, was started on oral antibiotics Doxycycline and Levofloxacin. Culture has been obtained and results pending. She relates this is pain to the toe. She has been taking Tylenol. She relates she has been up on her foot a lot, she relates she lives alone and has been hobbling on it a lot. Upon removing the bandage she noted it was worsening, more red and more streaking today compared to yesterday. She relates otherwise she is doing ok. Due to worsening diabetic foot infection she was admitted for further management. [facility] Medical History (Updated 11/18/23 @ 14:[address] Hernán Braswell, JOHANNE) Anemia Anxiety Arthritis Asthma Depression Diabetes Fatty liver High cholesterol History of echocardiogram History of stress test Hypertension Leg cramps Leukemia Non-smoker Post-menopausal Wears partial dentures Home Medications metformin 500 mg tablet,extended release 24 hr 1,000 mg PO BID 06/03/21 [History Last Taken Unknown] lisinopril 20 mg-hydrochlorothiazide 12.5 mg tablet 1 tab PO DAILY 10/11/22 [History Last Taken Unknown] rosuvastatin 10 mg tablet 10 mg PO QHS 05/25/23 [History Last Taken Unknown] semaglutide 1 mg/dose (4 mg/3 mL) subcutaneous pen injector (Ozempic) 1 mg subcut QWEEK 05/25/23 [History Last Taken Unknown] venlafaxine 150 mg capsule,extended release 24 hr 150 mg PO QHS 05/25/23 [History Last Taken Unknown] clindamycin HCl 300 mg capsule 300 mg PO Q8H 7 days #21 caps 06/09/23 [Rx Last Taken Unknown] Allergy/AdvReac Type Severity Reaction Status Date / Time prochlorperazine Allergy Severe anxiety Verified 06/09/23 06:04 [From Compazine] and itching Penicillins Allergy unknown Verified 06/09/23 06:04 Surgical History History of esophagogastroduodenoscopy (EGD) Hx of bilateral mastectomy Hx of breast surgery Hx of colonoscopy Hx of hysterectomy Hx of left breast implant Hx of lumpectomy Social History Smoking Status: Never smoker Vital Signs Vital Signs Vital Signs: Weight Weight: 72.688 kg Body Mass Index (BMI) 25.8 Physical Exam Const alert, oriented x3 and no apparent distress Constitutional Narrative: There is wound to the lateral right 2nd toe with some serous drainage, there is erythema and edema to the toe with erythema traveling to dorsal foot with streaking, there is no necrosis, no maloder. No other open lesions to the right foot either, CFT< 2 seconds to all toes with no evidence of acute ischemia to the foot, there is POP to the 2nd toe, no other pain to the rest of the foot or ankle. Results Lab / Micro Data 11/18/23 14:30 11/18/23 14:30 Assessment & Plan Assessment/Plan (1) Cellulitis of right lower limb: (2) Type 2 diabetes mellitus with foot ulcer: PLAN: Plan Evaluation performed - she was admitted due to significant right 2nd toe infection with cellulitis and streaking to the dorsal foot which appears worse than yesterday Antibiotics - Started on IV antibiotics - Vancomycin and Levofloxacin - ID service consulted Will plan to order MRI for further evaluation to see if further deeper abscess or possible osteomyelitis - xrays right foot were obtained in office yesterday and were reviewed - no gas, no clear evidence of osteomyelitis Wound care for now right 2nd toe - betadine soln and gauze dressing changes daily. Keep right foot elevated, avoid weight on right forefoot Hospital medicine consulted DVT Prophylaxis SCDs Pain management - Tylenol and Ibuprofen
--- NOTE | 2023-11-18 14:44 | MRI_ITS ---
EXAM: MR RIGHT LOWER EXTREMITY WITHOUT INTRAVENOUS CONTRAST CLINICAL INDICATION: abscess TECHNIQUE: Multiplanar and multisequence MR images of the right lower extremity without intravenous contrast. COMPARISON: No relevant prior studies available. FINDINGS: Bones/joints: No marrow signal alterations. Soft tissues: Focal soft tissue thickening along the dorsal aspect of the third distal interphalangeal joint there is a focal edema or focal cellulitis. There is potentially an adjacent ulcer; correlate with physical exam findings. No definite phlegmon or abscess. Mild nonspecific dorsal subcutaneous edema involving the forefoot. Unremarkable tendons and plantar aponeurosis. MRI/Lower Ext/No Jt/w/o IMPRESSION: No osteomyelitis, phlegmon or abscess. Possible focal cellulitis along the dorsal aspect of the third digit distally. Electronically Signed: Hunter Holden MD at 20:54 EDT ,
[2023-11-18 14:49] LABS: Absolute Lymphocyte Count 1.98 X10^3/uL (0.83-4.51); Absolute Neutrophil Count 8.5 X10^3/uL (2.0-7.7); Basophil# 0.04 X10^3/uL; Basophil% 0.3 % (0-1); Eosinophil# 0.27 X10^3/uL; Eosinophils% 2.3 % (0-5); Hematocrit 39.7 % (37-47); Hemoglobin 13.2 g/dL (12.0-15.0); Lymphocyte # 1.98 X10^3/ul (0.83-4.51); Lymphocyte % 17.1 % (19-41); Mean Corp Hgb Conc 33.2 g/dL (32-36); Mean Corpuscular Hgb 30.2 pg (27.0-32.0); Mean Corpuscular Volume 90.8 fL (81-99); Mean Platelet Vol. 9.2 fl (6.2-12.0); Monocyte# 0.77 X10^3/uL; Monocyte% 6.6 % (0-10); NRBC Flagged by Analyzer 0 % (0-5); Neutrophil # 8.47 X10^3/uL (2.7-7.7); Neutrophil % 73.3 % (47-70); Platelet Count 329 K/mm3 (150-450); RBC Distribution Width CV 13.7 % (11.6-14.6); RBC Distribution Width SD 45.2 fl (35.1-43.9); Red Blood Count 4.37 M/mm3 (4.2-5.4); White Blood Count 11.6 K/mm3 (4.4-11.0)
[2023-11-18 14:57] LABS: Erythrocyte Sedimentation Rate 48 mm/hr (0-30)
--- NOTE | 2023-11-18 15:14 | CON.PCM.ID_ITS ---
Assessment & Plan Assessment/Plan (1) Diabetic infection of right foot: PLAN: MRI pending. Will cover with vanc/ceftriaxone/flagyl. Will follow, thank you HPI Consult Data Date of Consult: 11/18/23 HPI Narrative Reason for Consultation: infected toe HPI Narrative: MARTY LARA, is a 68 F with h/o DM, presented due to worsening R 3rd toe redness, swelling, pain. She tried to drain an old blister a week ago with a needle that had been cleaned with peroxide and a baseball glove stuffer. Squeezed her toe after but not much came out. Over past few days, worsening inflammation, saw podiatry, given doxy/levaquin, sx worsened, sent to hospital. Full ROS performed and neg except as noted above. [facility] Medical History Anemia Anxiety Arthritis Asthma Depression Diabetes Fatty liver High cholesterol History of echocardiogram History of stress test Hypertension Leg cramps Leukemia Non-smoker Post-menopausal Wears partial dentures Home Medications metformin 500 mg tablet,extended release 24 hr 1,000 mg PO BID blood sugar 06/03/21 [History Last Taken 11/17/23] lisinopril 20 mg-hydrochlorothiazide 12.5 mg tablet 1 tab PO DAILY bp 10/11/22 [History Last Taken 11/17/23] rosuvastatin 10 mg tablet 10 mg PO QHS cholesterol 05/25/23 [History Last Taken 11/17/23] semaglutide 1 mg/dose (4 mg/3 mL) subcutaneous pen injector (Ozempic) 1 mg subcut QWEEK diabetes 05/25/23 [History Last Taken 11/14/23] venlafaxine 150 mg capsule,extended release 24 hr 150 mg PO QHS anxiety/depression 05/25/23 [History Last Taken 11/17/23] clindamycin HCl 300 mg capsule 300 mg PO Q8H 7 days #21 caps 06/09/23 [Rx Last Taken Unknown] Allergy/AdvReac Type Severity Reaction Status Date / Time prochlorperazine Allergy Severe anxiety Verified 06/09/23 06:04 [From Compazine] and itching Penicillins Allergy unknown Verified 06/09/23 06:04 Surgical History History of esophagogastroduodenoscopy (EGD) Hx of bilateral mastectomy Hx of breast surgery Hx of colonoscopy Hx of hysterectomy Hx of left breast implant Hx of lumpectomy Social History Smoking Status: Never smoker Physical Exam Const alert, oriented x3 and no apparent distress General Appearance: cooperative HEENT normocephalic and head/scalp atraumatic Eyes PERRL and EOMs intact bilaterally Neck supple and No nodes Resp normal air movement and clear to auscultation bilaterally Cardio regular rate and regular rhythm GI soft to palpation, non-tender and non-distended Extremity General Extremity: Negative for edema Skin Skin Narrative: R 3rd toe redness, swelling, tender Lab / Micro Data Attestation: I reviewed the patient's lab results. 11/18/23 14:30 11/18/23 14:30 Labs: Laboratory Results - last 24 hr 11/18/23 14:30: WBC 11.6 H, RBC 4.37, Hgb 13.2, Hct 39.7, MCV 90.8, MCH 30.2, MCHC 33.2, RDW Std Deviation 45.2 H, RDW Coeff of Bran 13.7, Plt Count 329, MPV 9.2, Immature Gran % (Auto) 0.400, Neut % (Auto) 73.3 H, Lymph % (Auto) 17.1 L, [place] % (Auto) 6.6, Eos % (Auto) 2.3, Baso % (Auto) 0.3, Absolute Neuts (auto) 8.5 H, Absolute Lymphs (auto) 1.98, Nucleated RBC % 0, ESR 48 H
[2023-11-18 15:16] LABS: ALB/GLOB Ratio 0.7 RATIO (0.9-2.4); AST(SGOT) 19 U/L (15-37); Alanine Aminotransfer ALT/SGPT 25 U/L (13-56); Albumin, Serum 3.2 g/dL (3.2-5.0); Alkaline Phosphatase 117 U/L (45-117); Anion Gap 6 (5-15); BUN 18 mg/dL (7-18); BUN/Creat Ratio 23.7 RATIO (10-20); Calcium,Total 9.2 mg/dL (8.5-10.1); Chloride 104 mmol/L (98-107); Creatinine, Serum 0.76 mg/dL (0.55-1.02); EST Glomerular Filtration Rate 80 mL/min (>60); Est Glom Filt Rate - Afr Amer 97 mL/min (>60); Estimated Creatinine Clearance 66.79 ml/min; Globulin 4.7 g/dL (2.2-4.2); Glucose 246 mg/dL (74-106); Potassium 3.5 mmol/L (3.5-5.1); Protein, Total 7.9 g/dL (6.4-8.2); Sodium Level 137 mmol/L (136-145)
--- NOTE | 2023-11-18 15:32 | WOUNDNOTE ---
wound photo: right foot (right 3rd toe)
[2023-11-18] MEDS: Vancomycin IV 1,000 MG/200 ML BAG 200 MG IV (16:06)
[2023-11-18] MEDS: Ibuprofen 400 MG Tablet PO ×2 (16:07→20:48)
--- NOTE | 2023-11-18 16:32 | PCM.RX.CS ---
Consult Antibiotic Management Pharmacy has been consulted to manage selected antibiotic: Vancomycin Type of Intervention Type of Consult: New start Suspected Infection Suspected Infection: Skin/Soft tissue Prior Doses of Antibiotics Prior Doses of Antibiotics Received/Current Regimen: Vancomycin 1000 mg IV x 1 given 11/18/23 @ 1609 Labs Labs: Sodium 137 mmol/L (136-145) 11/18/23 14:30 Potassium 3.5 mmol/L (3.5-5.1) 11/18/23 14:30 Chloride 104 mmol/L (98-107) 11/18/23 14:30 Carbon Dioxide 27.0 mmol/L (21.0-32.0) 11/18/23 14:30 Anion Gap 6 (5-15) 11/18/23 14:30 BUN 18 mg/dL (7-18) 11/18/23 14:30 Creatinine 0.76 mg/dL (0.55-1.02) 11/18/23 14:30 Est GFR (MDRD) Af Amer 97 mL/min (>60) 11/18/23 14:30 Est GFR (MDRD) Non-Af 80 mL/min (>60) 11/18/23 14:30 BUN/Creatinine Ratio 23.7 RATIO (10-20) H 11/18/23 14:30 Glucose 246 mg/dL (74-106) H 11/18/23 14:30 Dosing Weight Weight used for dosin kg Estimated Creatinine Clearance Estimated Creatinine Clearance: ~67 Goal Trough Goal Trough: 10-15 mcg/mL Pharmacy Plan for Drug Dosing Pharmacy Plan for Drug Dosing: Vancomycin 1000 mg IV x 1, followed by 500 mg IV Q12H. Pharmacy Service will continue to monitor and adjust dosing as required. Follow-Up Labs Follow-Up Labs: Trough: Vancomycin Date/Time Labs Ordered Labs to be done on [date and time ordered]: 11/20/23 @ 7482
[2023-11-18 17:11] LABS: M R Staph aureus DNA By PCR Negative (Negative); Probe Check PASS; Specimen Processing Control PASS; Staph aureus DNA By PCR NEGATIVE (Negative)
[2023-11-18 17:40] VITALS: BP 114/78; PULSE 89; RESP 16; TEMP 36.6; O2SAT 98
[2023-11-18] MEDS: metroNIDAZOLE 500 MG Tablet PO ×2 (17:49→20:49)
[2023-11-18] MEDS: Juven (unflavored) Packet 1 PACKET PO (17:50)
[2023-11-18] MEDS: Ceftriaxone 2 GM in 0.9% Normal Saline (50mL MB+) 50 ML IV (18:02)
[2023-11-18 18:28] LABS: Bedside Glucose 211 mg/dL (74-106)
[2023-11-18] MEDS: Venlafaxine XR 150 MG Capsule PO (20:49)
[2023-11-18] MEDS: Atorvastatin Calcium 20 MG Tablet PO (20:50)
[2023-11-18] MEDS: Insulin Lispro 100 UNIT/ML INSULN.PEN SC (20:56)
[2023-11-18 20:59] VITALS: BP 131/70; PULSE 99; RESP 15; TEMP 36.3; O2SAT 98
[2023-11-19 00:04] LABS: Bedside Glucose 184 mg/dL (74-106)
[2023-11-19] MEDS: Vancomycin IV 500 MG/100 ML BAG 100 MG IV ×2 (02:59→16:42)
[2023-11-19] MEDS: Ibuprofen 400 MG Tablet PO ×4 (02:59→19:25)
[2023-11-19 03:00] VITALS: BP 126/64; PULSE 93; RESP 14; TEMP 36.9; O2SAT 96
[2023-11-19] MEDS: Acetaminophen 325 MG Tablet 650 MG PO ×4 (03:00→21:38)
[2023-11-19] MEDS: metroNIDAZOLE 500 MG Tablet PO ×2 (06:18→14:28)
[2023-11-19 06:42] LABS: Bedside Glucose 177 mg/dL (74-106)
[2023-11-19 09:33] VITALS: BP 111/79; PULSE 82; RESP 16; TEMP 36.6; O2SAT 98
[2023-11-19] MEDS: Ceftriaxone 2 GM in 0.9% Normal Saline (50mL MB+) 50 ML IV (09:39)
[2023-11-19] MEDS: 0.9% Saline Lock 10 ML Syringe IV ×4 (09:40→21:39)
--- NOTE | 2023-11-19 10:25 | PCM.PN.HOSP ---
Reason for Visit Reason for Visit: Diagnoses Type 2 diabetes mellitus with foot ulcer (11/18/23) Type 2 diabetes mellitus with other skin complications (11/18/23) Cellulitis of right lower limb (11/18/23) Local infection of the skin and subcutaneous tissue, unspecified (11/18/23) Non-pressure chronic ulcer of other part of unspecified foot with unspecified severity (11/18/23) Subjective Subjective Patient was seen and examined today, I talked with podiatry today by phone, patient's MRI of her right foot does not show any evidence of osteomyelitis or abscess formation. I have elected to feed the patient today because I do not feel she needs surgery and I went over this with podiatry. I also asked her questions concerning her penicillin allergy, she states that she had swelling and some difficulty breathing but it was when she was a child she does not remember very much about it. I have elected to give her an oral dose of amoxicillin to see if she tolerates this medication, cultures on the toe grew out strep-preferred drug would be penicillin. Objective Data Objective Data Vital Signs: Vital Signs Temp Pulse Resp BP Pulse Ox O2 Del Method 97.8 F 82 16 111/79 98 Room Air 11/19/23 09:33 11/19/23 09:33 11/19/23 09:33 11/19/23 09:33 11/19/23 09:33 11/19/23 09:51 Oxygen Delivery Method Room Air Weight: 72.688 kg Body Mass Index (BMI) 25.8 Intake & Output: Intake and Output for Last 24 Hours 11/17/23 11/18/23 11/19/23 23:59 23:59 23:59 Intake Total 670.00 / 670.00 100 / 100 Balance 670.00 / 670.00 100 / 100 Lab / Micro Data 11/18/23 14:30 11/18/23 14:30 Labs: Laboratory Results - last 24 hr 11/18/23 14:30: WBC 11.6 H, RBC 4.37, Hgb 13.2, Hct 39.7, MCV 90.8, MCH 30.2, MCHC 33.2, RDW Std Deviation 45.2 H, RDW Coeff of Bran 13.7, Plt Count 329, MPV 9.2, Immature Gran % (Auto) 0.400, Neut % (Auto) 73.3 H, Lymph % (Auto) 17.1 L, [place] % (Auto) 6.6, Eos % (Auto) 2.3, Baso % (Auto) 0.3, Absolute Neuts (auto) 8.5 H, Absolute Lymphs (auto) 1.98, Nucleated RBC % 0, ESR 48 H, Sodium 137, Potassium 3.5, Chloride 104, Carbon Dioxide 27.0, Anion Gap 6, BUN 18, Creatinine 0.76, Estim Creat Clear Calc 66.79, Est GFR (MDRD) Af Amer 97, Est GFR (MDRD) Non-Af 80, BUN/Creatinine Ratio 23.7 H, Glucose 246 H, Hemoglobin A1c 8.0 H, Calcium 9.2, Total Bilirubin 0.50, AST 19, ALT 25, Alkaline Phosphatase 117, C-React Prot Ext Range 85.00 H, Total Protein 7.9, Albumin 3.2, Globulin 4.7 H, Albumin/Globulin Ratio 0.7 L 11/18/23 15:15: S.aureus Protein A PCR NEGATIVE, MRSA (PCR) Negative 11/18/23 17:45: POC Glucose 211 H 11/18/23 20:52: POC Glucose 184 H 11/19/23 06:18: POC Glucose 177 H Radiography Diagnostic Testing: Radiology Impression Lower Extremity MRI 11/18/23 14:44 IMPRESSION: No osteomyelitis, phlegmon or abscess. Possible focal cellulitis along the dorsal aspect of the third digit distally. Electronically Signed: Hunter Holden MD at 20:54 EDT Reading Location ID and State: [facility][note 3] / [place] Tel , Service support , Physical Exam Const alert, oriented x3, no apparent distress and healthy appearing General Appearance: cooperative, well kempt and well developed Orientation / Consciousness: awake, oriented to person, oriented to place and oriented to time HEENT normocephalic, head/scalp atraumatic and moist oral mucous membranes Eyes PERRL, EOMs intact bilaterally and conjunctivae normal Neck supple, no JVD, thyroid normal and no carotid bruits General: trachea midline Resp normal respiratory effort, no retractions, no use of accessory muscles and clear to auscultation bilaterally Auscultation: Negative for rales, rhonchi or wheezes Cardio regular rate, regular rhythm, S1 normal heart sound, S2 normal heart sound, no murmurs, no rub and no gallops GI normal to inspection, nondistended, normoactive bowel sounds, soft to palpation, non-tender and non-distended Extremity Extremity Narrative: Patient's right third toe appears to be swollen and reddened, there is minimal redness on the dorsum of the patient's right foot, right third toe is tender. Skin no rashes or lesions noted General Skin Exam: no breakdown Neuro oriented x3, CN's II-XII intact bilaterally, moves all extremities, no focal motor deficits and no sensory deficits noted Sensorium / Orientation: awake, alert, oriented to person, oriented to place and oriented to time Speech: speech normal Psych affect normal Assessment & Plan Assessment/Plan (1) Type 2 diabetes mellitus with foot ulcer: PLAN: Plan 1. Right third toe cellulitis with strep-again I gave the patient oral penicillin today, if she tolerates this I will transition her over to Unasyn IV #2 type 2 diabetes-blood sugars will be monitored, sliding scale insulin will be given as needed #3 hyperlipidemia-patient is on a statin #4 chronic depression-patient is on Effexor Total clinical time spent by myself addressing the patient's medical issues, reviewing all her data, and collaborating with patient's care team: 35 minutes Charges/Coding Visit Charges Inpatient E&M: 27423 Subs Hosp L2
--- NOTE | 2023-11-19 10:27 | CASEMGMT ---
Addendum entered by Marilyn Hernandez 11/19/23 10:32: Pt reports that 5 family members have passed in the last 2 years, including her and daughter. Discussed with pt any need for grief support/resources. Pt declined stating she had everything already and has good support from her significant other, son, and granddaughter. Marilyn Hernandez MSN, RN, CCM Original Note: SABINE LAINEZ Assessment: Face to Face with pt for initial transition planning/care coordination assessment. RN FATOU introduced self and role at [facility], pt voices understanding and consents to assessment. Pt is A&O x4, sitting up in bed, and answers all questions appropriately at this time. Care providers, pharmacy, and demographics verified/updated. Admitting Dx: Diabetic foot infection & R foot abscess PCP: Evan Specialists: Dr. Gautam Preferred Pharmacy: [facility] Insurance: [facility] Prescription Benefit: yes LNOK: Sigother Kory, son Living Arrangements: Pt lives at home with significant other. 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 Home is 1 story. Pt is independent with IADLs and ADLs at baseline. Transportation: Pt drives self and denies concerns with transportation. DME: None HHC/SNF: None Briefly discussed with pt if she would be able to manage dressing changes and IV abx at home, if needed per the medical team. Pt reports that she would be able to manage both as long as she was taught what to do. Pt states no concerns with going home at time of dc. Pt states no further concerns/needs. CM to follow. Advised pt to ask CM if any further question/concerns/needs arise, voices understanding. Pt Goal: Home Plan: Home with no skilled needs. CONCHA Dasilva, RN, CCM
--- NOTE | 2023-11-19 10:39 | PN_ITS ---
Subjective Subjective 68F seen bedside today. Notes improvement in pain, redness and swelling today. patient notes wound to right 3rd toe started after she popped a cyst in her right foot with a needle, a week later she noticed increased pain, redness and swelling. She underwent an I&D in the outpatient setting by Dr. Moran and was pl aced on PO abx. Subsequently she developed worsening, redness, pain and swelling. Today she denies constitutional symptoms. Objective Data Objective Data Vital Signs: Vital Signs Temp Pulse Resp BP Pulse Ox O2 Del Method 97.8 F 82 16 111/79 98 Room Air 11/19/23 09:33 11/19/23 09:33 11/19/23 09:33 11/19/23 09:33 11/19/23 09:33 11/19/23 09:51 Oxygen Delivery Method Room Air Weight: 72.688 kg Body Mass Index (BMI) 25.8 Intake & Output: Intake and Output for Last 24 Hours 11/17/23 11/18/23 11/19/23 23:59 23:59 23:59 Intake Total 670.00 / 670.00 100 / 100 Balance 670.00 / 670.00 100 / 100 Lab / Micro Data 11/18/23 14:30 11/18/23 14:30 Labs: Laboratory Results - last 24 hr 11/18/23 14:30: WBC 11.6 H, RBC 4.37, Hgb 13.2, Hct 39.7, MCV 90.8, MCH 30.2, MCHC 33.2, RDW Std Deviation 45.2 H, RDW Coeff of Bran 13.7, Plt Count 329, MPV 9.2, Immature Gran % (Auto) 0.400, Neut % (Auto) 73.3 H, Lymph % (Auto) 17.1 L, Shackelford % (Auto) 6.6, Eos % (Auto) 2.3, Baso % (Auto) 0.3, Absolute Neuts (auto) 8.5 H, Absolute Lymphs (auto) 1.98, Nucleated RBC % 0, ESR 48 H, Sodium 137, Potassium 3.5, Chloride 104, Carbon Dioxide 27.0, Anion Gap 6, BUN 18, Creatinine 0.76, Estim Creat Clear Calc 66.79, Est GFR (MDRD) Af Amer 97, Est GFR (MDRD) Non-Af 80, BUN/Creatinine Ratio 23.7 H, Glucose 246 H, Hemoglobin A1c 8.0 H, Calcium 9.2, Total Bilirubin 0.50, AST 19, ALT 25, Alkaline Phosphatase 117, C-React Prot Ext Range 85.00 H, Total Protein 7.9, Albumin 3.2, Globulin 4.7 H, Albumin/Globulin Ratio 0.7 L 11/18/23 15:15: S.aureus Protein A PCR NEGATIVE, MRSA (PCR) Negative 11/18/23 17:45: POC Glucose 211 H 11/18/23 20:52: POC Glucose 184 H 11/19/23 06:18: POC Glucose 177 H Radiography Diagnostic Testing: Radiology Impression Lower Extremity MRI 11/18/23 14:44 IMPRESSION: No osteomyelitis, phlegmon or abscess. Possible focal cellulitis along the dorsal aspect of the third digit distally. Electronically Signed: Hunter Holden MD at 20:54 EDT , Physical Exam Narrative Neurovascular status unchanged today improved erythema/edema and warmth to right 3rd toe extending into forefoot. Assessment & Plan Assessment/Plan (1) Diabetic infection of right foot: PLAN: Exam performed improving cellulitis cx + for beta streptococcus - IM planning to decreased abx load and attempt treatment with penicillin base abx pending tolerance MRI + for cellulitis right 3rd toe - no evidence of deep abscess or osteomyelitis offload with heel weightbearing on right with surgical shoe will continune to observe cellulitis response to IV abx (2) Type 2 diabetes mellitus with foot ulcer: QUALIFIERS: Diabetes mellitus long lines operator insulin use: without long lines operator use Qualified Code(s): E11.621 - Type 2 diabetes mellitus with foot ulcer; L97.509 - Non-pressure chronic ulcer of other part of unspecified foot with unspecified severity (3) Cellulitis of right lower limb:
[2023-11-19] MEDS: Amoxicillin 250 MG Capsule PO (11:05)
[2023-11-19] MEDS: oxyCODONE 5 MG Tablet PO ×2 (15:48→21:39)
[2023-11-19 15:49] VITALS: BP 125/76; PULSE 89; RESP 16; TEMP 36.8; O2SAT 98
[2023-11-19 17:05] LABS: Bedside Glucose 113 mg/dL (74-106)
[2023-11-19] MEDS: Ampicillin/Sulbactam 3 GM in 0.9% Normal Saline (100mL MB+) 100 ML IV (18:15)
[2023-11-19] MEDS: Juven (unflavored) Packet 1 PACKET PO (18:17)
[2023-11-19] MEDS: Atorvastatin Calcium 20 MG Tablet PO (21:38)
[2023-11-19] MEDS: Venlafaxine XR 150 MG Capsule PO (21:38)
[2023-11-19] MEDS: Insulin Lispro 100 UNIT/ML INSULN.PEN SC (21:39)
[2023-11-19 21:45] VITALS: BP 136/71; PULSE 91; RESP 18; TEMP 37.1; O2SAT 98
[2023-11-19 22:02] LABS: Bedside Glucose 166 mg/dL (74-106)
[2023-11-20] MEDS: Ampicillin/Sulbactam 3 GM in 0.9% Normal Saline (100mL MB+) 100 ML IV ×5 (00:07→23:55)
[2023-11-20] MEDS: Ibuprofen 400 MG Tablet PO ×2 (01:24→12:59)
[2023-11-20] MEDS: oxyCODONE 5 MG Tablet PO ×5 (02:05→23:55)
[2023-11-20 03:45] VITALS: BP 103/76; PULSE 84; RESP 18; TEMP 36.6; O2SAT 98
[2023-11-20 04:20] LABS: Creatinine, Serum 0.63 mg/dL (0.55-1.02); EST Glomerular Filtration Rate 99 mL/min (>60); Est Glom Filt Rate - Afr Amer 119 mL/min (>60); Estimated Creatinine Clearance 66.79 ml/min
[2023-11-20 04:22] LABS: Vancomycin, Trough Level 4.2 ug/mL (5.0-15.0)
--- NOTE | 2023-11-20 04:35 | PCM.RX.CS ---
Consult Antibiotic Management Pharmacy has been consulted to manage selected antibiotic: Vancomycin Type of Intervention Type of Consult: Follow-up Labs Labs: Sodium 137 mmol/L (136-145) 11/18/23 14:30 Potassium 3.5 mmol/L (3.5-5.1) 11/18/23 14:30 Chloride 104 mmol/L (98-107) 11/18/23 14:30 Carbon Dioxide 27.0 mmol/L (21.0-32.0) 11/18/23 14:30 Anion Gap 6 (5-15) 11/18/23 14:30 BUN 18 mg/dL (7-18) 11/18/23 14:30 Creatinine 0.63 mg/dL (0.55-1.02) 11/20/23 03:24 Est GFR (MDRD) Af Amer 119 mL/min (>60) 11/20/23 03:24 Est GFR (MDRD) Non-Af 99 mL/min (>60) 11/20/23 03:24 BUN/Creatinine Ratio 23.7 RATIO (10-20) H 11/18/23 14:30 Glucose 246 mg/dL (74-106) H 11/18/23 14:30 Vancomycin Trough 4.2 ug/mL (5.0-15.0) L 11/20/23 03:24 Pharmacy Plan for Drug Dosing Pharmacy Plan for Drug Dosing: Pharmacy Service will continue to monitor and adjust dosing as required. TROUGH 4.2 @ 11 HOURS. SCr DECREASED FROM 0.76 TO 0.63. INCREASE TO 1GM Q12H AND FOLLOW UP TROUGH PRIOR TO 4TH DOSE Follow-Up Labs Follow-Up Labs: Trough: Vancomycin Date/Time Labs Ordered Labs to be done on [date and time ordered]: 11/20 @ 1600
[2023-11-20] MEDS: Vancomycin IV 1,000 MG/200 ML BAG 200 MG IV (04:43)
[2023-11-20] MEDS: Acetaminophen 325 MG Tablet 650 MG PO ×3 (06:49→19:51)
[2023-11-20] MEDS: Insulin Lispro 100 UNIT/ML INSULN.PEN SC ×3 (06:56→19:53)
[2023-11-20 07:25] LABS: Bedside Glucose 172 mg/dL (74-106)
--- NOTE | 2023-11-20 09:56 | PCM.PROGNOTE ---
Subjective Subjective 68-year-old female seen bedside. Notes improvement to pain and swelling right foot. Notes some continued pain with ambulation. No issues overnight. Objective Data Objective Data Vital Signs: Vital Signs Temp Pulse Resp BP Pulse Ox O2 Del Method 97.8 F 84 18 103/76 98 Room Air 11/20/23 03:45 11/20/23 03:45 11/20/23 03:45 11/20/23 03:45 11/20/23 03:45 11/20/23 03:45 Oxygen Delivery Method Room Air Weight: 72.688 kg Body Mass Index (BMI) 25.8 Intake & Output: Intake and Output for Last 24 Hours 11/18/23 11/19/23 11/20/23 23:59 23:59 23:59 Intake Total 670.00 / 670.00 862 / 1062 624 / 624 Balance 670.00 / 670.00 862 / 1062 624 / 624 Lab / Micro Data 11/18/23 14:30 11/20/23 03:24 Labs: Laboratory Results - last 24 hr 11/19/23 16:33: POC Glucose 113 H 11/19/23 21:36: POC Glucose 166 H 11/20/23 03:24: Creatinine 0.63, Estim Creat Clear Calc 66.79, Est GFR (MDRD) Af Amer 119, Est GFR (MDRD) Non-Af 99, Vancomycin Trough 4.2 L 11/20/23 06:55: POC Glucose 172 H Physical Exam Narrative Neurovascular status unchanged today improved erythema/edema and warmth to right 3rd toe extending into forefoot. Still some edema erythema to right third toe dorsal distal interphalangeal joint. There is an eschar to this area upon debridement of this area there is noted be 2 cc purulent abscess underlying the scab. Digital contracture to right third toe with a claw type toe. Const alert, oriented x3 and no apparent distress Constitutional Narrative: There is wound to the lateral right 2nd toe with some serous drainage, there is erythema and edema to the toe with erythema traveling to dorsal foot with streaking, there is no necrosis, no maloder. No other open lesions to the right foot either, CFT< 2 seconds to all toes with no evidence of acute ischemia to the foot, there is POP to the 2nd toe, no other pain to the rest of the foot or ankle. Assessment & Plan Assessment/Plan (1) Diabetic infection of right foot: PLAN: Exam performed improving cellulitis, present residual abscess to right third toe in setting of hammertoe and digital mucoid cyst. cx + for beta streptococcus - IM planning to decreased abx load and attempt treatment with penicillin base abx pending tolerance MRI + for cellulitis right 3rd toe - no evidence of deep abscess or osteomyelitis offload with heel weightbearing on right with surgical shoe Due to lack of significant clinical improvement and residual abscess to right third toe will plan for OR debridement tomorrow on 11/21/2023. At this time surgical plan will include incision and drainage of abscess to right third toe with digital arthroplasty and excision of digital mucoid cyst. Today a bedside I&D was performed after sterile prep and 2 cc of a purulent abscess was drained. This drainage was recultured. Site was flushed with copious saline and dressed with Betadine paint 4 x 4's Evon and an Peter bandage. (2) Type 2 diabetes mellitus with foot ulcer: QUALIFIERS: Diabetes mellitus chcf insulin use: without local intermodal truck driver use Qualified Code(s): E11.621 - Type 2 diabetes mellitus with foot ulcer; L97.509 - Non-pressure chronic ulcer of other part of unspecified foot with unspecified severity (3) Cellulitis of right lower limb:
[2023-11-20 10:40] VITALS: BP 127/68; PULSE 94; RESP 16; TEMP 36.6; O2SAT 98
--- NOTE | 2023-11-20 11:40 | PCM.PN.HOSP ---
Reason for Visit Reason for Visit: Diagnoses Type 2 diabetes mellitus with foot ulcer (11/18/23) Type 2 diabetes mellitus with other skin complications (11/18/23) Cellulitis of right lower limb (11/18/23) Local infection of the skin and subcutaneous tissue, unspecified (11/18/23) Non-pressure chronic ulcer of other part of unspecified foot with unspecified severity (11/18/23) Subjective Subjective Patient was seen and examined today, her right foot is bandaged at this time and I did not remove the bandage for examination of the wound. Patient tells me that podiatry told her this morning they would need to take her for debridement tomorrow, she is tolerating IV Unasyn without any difficulty, I stopped her other antibiotics yesterday except for vancomycin and the Unasyn. Today her culture organisms resulted and also showing Staphylococcus pseudo intermedius, this is sensitive to oxacillin so I am going to drop her vancomycin off today. Objective Data Objective Data Vital Signs: Vital Signs Temp Pulse Resp BP Pulse Ox O2 Del Method 97.8 F 94 16 127/68 H 98 Room Air 11/20/23 10:40 11/20/23 10:40 11/20/23 10:40 11/20/23 10:40 11/20/23 10:40 11/20/23 10:40 Oxygen Delivery Method Room Air Weight: 72.688 kg Body Mass Index (BMI) 25.8 Intake & Output: Intake and Output for Last 24 Hours 11/18/23 11/19/23 11/20/23 23:59 23:59 23:59 Intake Total 670.00 / 670.00 862 / 1062 624 / 624 Balance 670.00 / 670.00 862 / 1062 624 / 624 Lab / Micro Data 11/18/23 14:30 11/20/23 03:24 Labs: Laboratory Results - last 24 hr 11/19/23 16:33: POC Glucose 113 H 11/19/23 21:36: POC Glucose 166 H 11/20/23 03:24: Creatinine 0.63, Estim Creat Clear Calc 66.79, Est GFR (MDRD) Af Amer 119, Est GFR (MDRD) Non-Af 99, Vancomycin Trough 4.2 L 11/20/23 06:55: POC Glucose 172 H Physical Exam Narrative alert, oriented x3, no apparent distress and healthy appearing General Appearance: cooperative, well kempt and well developed Orientation / Consciousness: awake, oriented to person, oriented to place and oriented to time HEENT normocephalic, head/scalp atraumatic and moist oral mucous membranes Eyes PERRL, EOMs intact bilaterally and conjunctivae normal Neck supple, no JVD, thyroid normal and no carotid bruits General: trachea midline Resp normal respiratory effort, no retractions, no use of accessory muscles and clear to auscultation bilaterally Auscultation: Negative for rales, rhonchi or wheezes Cardio regular rate, regular rhythm, S1 normal heart sound, S2 normal heart sound, no murmurs, no rub and no gallops GI normal to inspection, nondistended, normoactive bowel sounds, soft to palpation, non-tender and non-distended Extremity Patient's right foot was not examined, she has bandages over the area and these were not removed Skin no rashes or lesions noted Neuro oriented x3, CN's II-XII intact bilaterally, moves all extremities, no focal motor deficits and no sensory deficits noted Sensorium / Orientation: awake, alert, oriented to person, oriented to place and oriented to time Speech: speech normal Psych affect normal Assessment & Plan Assessment/Plan (1) Diabetic infection of right foot: (2) Type 2 diabetes mellitus with foot ulcer: QUALIFIERS: Diabetes mellitus terminal superintendent insulin use: without terminal superintendent use Qualified Code(s): E11.621 - Type 2 diabetes mellitus with foot ulcer; L97.509 - Non-pressure chronic ulcer of other part of unspecified foot with unspecified severity PLAN: Plan 1. Right third toe cellulitis with strep an staph pseudintermedius-patient will remain on Unasyn and I have elected to stop her vancomycin as the staff species is sensitive to oxacillin #2 type 2 diabetes-blood sugars will be monitored, sliding scale insulin will be given as needed #3 hyperlipidemia-patient is on a statin #4 chronic depression-patient is on Effexor Total clinical time spent by myself addressing the patient's medical issues, reviewing all her data, and collaborating with patient's care team: 35 minutes Charges/Coding Visit Charges Inpatient E&M: 86989 Subs Hosp L2
[2023-11-20] MEDS: 0.9% Normal Saline (250mL Bag) 250 ML 15 ML IV (12:42)
[2023-11-20 16:38] VITALS: BP 121/69; PULSE 92; RESP 16; TEMP 36.6; O2SAT 98
[2023-11-20 17:04] LABS: Bedside Glucose 193 mg/dL (74-106)
[2023-11-20 19:40] VITALS: BMI 25.8
[2023-11-20] MEDS: Atorvastatin Calcium 20 MG Tablet PO (19:51)
[2023-11-20] MEDS: Venlafaxine XR 150 MG Capsule PO (19:51)
[2023-11-20 21:20] VITALS: BP 118/66; PULSE 93; RESP 18; TEMP 36.6; O2SAT 97
[2023-11-20 21:22] LABS: Bedside Glucose 206 mg/dL (74-106)
[2023-11-21] VITALS (13 sets, daily range): BP systolic 104–137; BP diastolic 65–87; PULSE 72–98; RESP 12–18; TEMP 36.1–36.9; O2SAT 95–99
[2023-11-21] MEDS: Acetaminophen 325 MG Tablet 650 MG PO ×2 (04:43→15:37)
[2023-11-21 05:28] LABS: Hematocrit 34.3 % (37-47); Hemoglobin 11.2 g/dL (12.0-15.0); Mean Corp Hgb Conc 32.7 g/dL (32-36); Mean Corpuscular Hgb 29.8 pg (27.0-32.0); Mean Corpuscular Volume 91.2 fL (81-99); Mean Platelet Vol. 9.7 fl (6.2-12.0); Platelet Count 313 K/mm3 (150-450); RBC Distribution Width CV 13.7 % (11.6-14.6); RBC Distribution Width SD 45.7 fl (35.1-43.9); Red Blood Count 3.76 M/mm3 (4.2-5.4); White Blood Count 8.6 K/mm3 (4.4-11.0)
[2023-11-21] MEDS: Ampicillin/Sulbactam 3 GM in 0.9% Normal Saline (100mL MB+) 100 ML IV ×2 (05:38→13:30)
[2023-11-21 06:19] LABS: Anion Gap 5 (5-15); BUN 12 mg/dL (7-18); BUN/Creat Ratio 23.3 RATIO (10-20); Calcium,Total 8.5 mg/dL (8.5-10.1); Chloride 109 mmol/L (98-107); Creatinine, Serum 0.51 mg/dL (0.55-1.02); EST Glomerular Filtration Rate 126 mL/min (>60); Est Glom Filt Rate - Afr Amer 152 mL/min (>60); Estimated Creatinine Clearance 66.79 ml/min; Glucose 182 mg/dL (74-106); Potassium 3.7 mmol/L (3.5-5.1); Sodium Level 141 mmol/L (136-145)
--- NOTE | 2023-11-21 11:00 | RAD_ITS ---
PROCEDURE: Possible resection of the middle phalanx of the third toe. DATE OF EXAMINATION: November 21, 2023. INDICATION: Female, 68 years old. Resection of the middle phalanx of the third toe. FLUOROSCOPY TIME (if supplied): (1 second.) minutes/seconds. 0.0048 mGy. One image was submitted. RAD/Foot min 3 Views IMPRESSION: Intraoperative fluoroscopic services provided for partial resection of the middle phalanx of the third toe. Electronically Signed: Mitch Street MD at 12:55 EDT ,
--- NOTE | 2023-11-21 11:30 | BON_PTH ---
PATIENT: MARTY LARA LOC: [facility] U#:[id number] AGE/SX: 68/F ROOM: [facility] RE11/18/[address]: Dr. Hernán Braswell DPM : 1955 BED: 1 DIS: 11/23/2023 SPEC #: [id number] RECD: 11/21/23 18:23 STATUS: SHELLEY RECj #: [id number] MILAD: 11/21/23 11:[address]: Hernán Braswell DEPT: SURGICAL PATHOLOGY RECD BY: Elly Sylvester ENTERED: 11/22/23 08:53 SP TYPE: Bone OTHR DR: MD Dr. Jose Braun, DO Dr. Forest Drummond, DO MD Dr. Kalyn Anguiano, DO MD Dr. Dash Coker, DO MD Chloe Martinez, MIGRANT LEADER-C Carli Lay, MIGRANT LEADER-C BLANCHE Seaman PA Rachael McGoron, PA Tissues: Toe, NOS Procedures: Decalcification bone/plaque Surgery Specimen Level IV HEADER OPERATION: Incision and drainage of abscess third toe PRE-OP DIAGNOSIS: Diabetic foot infection and right foot abscess TISSUE SUBMITTED: Right foot, third toe bone MICROSCOPIC DIAGNOSIS Right foot third toe bone, biopsy; A piece of bone with acute osteomyelitis. / 11/23/2023 MICROSCOPIC DESCRIPTION Slides are reviewed. GROSS DESCRIPTION Received in fixative is one container labeled with the patient's name and designated Right foot third toe bone. The specimen consists of a piece of bone measuring 0.7 x 0.3 x 0.3cm. The entire specimen is submitted in one cassette after decalcification. / 11/22/2023 TC:2 CPT: 44948,94576
[2023-11-21] MEDS: Bupivacaine Mpf 0.5% 30 ML VIAL (11:43)
--- NOTE | 2023-11-21 11:43 | PN.HOSP_ITS ---
Reason for Visit Reason for Visit: Diagnoses Type 2 diabetes mellitus with foot ulcer (11/18/23) Type 2 diabetes mellitus with other skin complications (11/18/23) Cellulitis of right lower limb (11/18/23) Local infection of the skin and subcutaneous tissue, unspecified (11/18/23) Non-pressure chronic ulcer of other part of unspecified foot with unspecified severity (11/18/23) Subjective Subjective Patient was directly admitted from the podiatry office on 11/17 for worsening right third toe wound with cellulitis. Podiatry, infectious disease and wound care following. Initially started on IV vancomycin, IV ceftriaxone and p.o. Flagyl per ID recs. Bedside wound cultures from 11/16 grew Strep pyogenes and Staph pseudintermedius and patient was de-escalated to only IV Unasyn. S/p wound debridement with podiatry on 11/20, wound cultures pending. Patient tolerated procedure without issue. Patient seen at bedside this afternoon after procedure, friend present. Patient was sitting up comfortably in bed, conversing normally, no acute distress. Her right foot was completely wrapped with Peter wrap. Patient denied any right foot or toe pain at this time, which she attributes to the nerve block podiatry used for the procedure. She denies any fevers or chills. No other acute concerns this time. Objective Data Objective Data Vital Signs: Vital Signs Temp Pulse Resp BP Pulse Ox O2 Del Method 98.4 F 92 14 129/65 H 99 Room Air 11/21/23 10:00 11/21/23 10:00 11/21/23 10:00 11/21/23 10:00 11/21/23 10:00 11/21/23 10:00 Oxygen Delivery Method Room Air Weight: 72.688 kg Body Mass Index (BMI) 25.8 Intake & Output: Intake and Output for Last 24 Hours 11/19/23 11/20/23 11/21/23 23:59 23:59 23:59 Intake Total 862 / 1062 942.25 / 942.25 209.5 / 209.5 Balance 862 / 1062 942.25 / 942.25 209.5 / 209.5 Lab / Micro Data 11/21/23 04:16 11/21/23 04:16 Labs: Laboratory Results - last 24 hr 11/20/23 16:42: POC Glucose 193 H 11/20/23 19:52: POC Glucose 206 H 11/21/23 04:16: WBC 8.6, RBC 3.76 L, Hgb 11.2 L, Hct 34.3 L, MCV 91.2, MCH 29.8, MCHC 32.7, RDW Std Deviation 45.7 H, RDW Coeff of Bran 13.7, Plt Count 313, MPV 9.7, Sodium 141, Potassium 3.7, Chloride 109 H, Carbon Dioxide 27.0, Anion Gap 5, BUN 12, Creatinine 0.51 L, Estim Creat Clear Calc 66.79, Est GFR (MDRD) Af Amer 152, Est GFR (MDRD) Non-Af 126, BUN/Creatinine Ratio 23.3 H, Glucose 182 H, Calcium 8.5 Micro: Microbiology 11/20/23 09:55 Wound Abcess - Toe Wound Culture - Preliminary Streptococcus group A Physical Exam Const alert, oriented x3, no apparent distress and average body habitus Constitutional Narrative: Pleasant elderly female, sitting uncomfortably in bed, conversing normally, no acute distress. General Appearance: cooperative and comfortable HEENT normocephalic, head/scalp atraumatic, hearing grossly normal bilaterally, nasal mucous membranes and turbinates normal and moist oral mucous membranes Eyes PERRL, EOMs intact bilaterally and conjunctivae normal Neck full ROM Chest inspection of chest normal Resp normal respiratory effort, normal air movement, no use of accessory muscles and clear to auscultation bilaterally Cardio regular rate, regular rhythm, no murmurs and peripheral pulses 2+ throughout GI normal to inspection, nondistended, normoactive bowel sounds, soft to palpation, non-tender and non-distended Back/Spine normal ROM Extremity no pedal edema Extremity Narrative: Right foot wrapped with Peter wrap down to the toes. Neuro moves all extremities and no focal motor deficits Speech: speech normal Psych mental status grossly normal Assessment & Plan Assessment/Plan (1) Diabetic infection of right foot: PLAN: Plan Patient is a 68-year-old female who presented to [facility] on 11[facility]18[facility]23 as a direct admit for worsening right third toe infection with cellulitis. 1. Right third toe diabetic foot wound with cellulitis ? Podiatry, infectious disease and wound care following. PT/OT and case man agement following. S/p wound debridement with podiatry on 11/20, wound cultures pending. Initial bedside wound cultures from 11/16 grew Strep pyogenes and Staph pseudintermedius. Per ID, will plan for 3-week course of p.o. Augmentin total on discharge, will switch to p.o. Augmentin at this time. Chronic medical conditions: ? Type 2 diabetes mellitus: Home regimen of metformin 1000 mg twice daily, Ozempic 1 mg weekly. A1c 8.0% on admit, increased from previous A1c of 7.2% in May 2023. Continue sliding scale insulin with meals as needed while inpatient. ? Hyperlipidemia: Continue home statin. ? Depression: Continue home venlafaxine. ? Hypertension: Holding home lisinopril?hydrochlorothiazide for now. DVT prophylaxis: Heparin subcu CODE STATUS: Full code, unverified Expected disposition: Home, 1 to 2 days Total clinical time spent by myself addressing the patient's medical issues, reviewing all the data, and collaborating with patient's care team: 35 minutes.
--- NOTE | 2023-11-21 12:17 | PCM.OPRPT ---
Problems Associated Problem List Diagnoses (1) Septic arthritis of interphalangeal joint of toe of right foot: (2) Diabetic infection of right foot: (3) Type 2 diabetes mellitus with foot ulcer: (4) Cellulitis of right lower limb: (5) Other hammer toe(s) (acquired), right foot: Report of Operation Date of Procedure: 11/21/23 Pre-Operative Diagnosis: 1) Septic Arthritis Right 3rd Toe 2) Hammertoe Right 3rd Toe 3) Full thickness wound Right third Toe 4) Diabetic Foot Infection Post-Operative Diagnosis: same Surgery/Procedure Performed:: 1) Incision and Drainage via Arthrotomy of distal interphalangeal joint, right 3rd toe 2) Arthroplasty distal interphalangeal joint, right 3rd toe 3) Delayed Primary Closure - wound, Right 3rd toe Description of Surgical Findings:: Patient was seen on of last week in the outpatient setting by Dr. Moran and underwent a bedside debridement at that time via incision and drainage under local anesthesia. The next day patient had increased swelling and redness streaking up her foot and was seen by Dr. Gonsales. Patient was then admitted for cellulitis and a right diabetic foot infection with an elevated white count at that time. MRI was obtained and read to be negative with regards to osteomyelitis or deep abscess. Upon personal review appear to be a small abscess dorsal to the distal interphalangeal joint communicating with the joint. This problem initiated 1 week prior to the patient seeing Dr. Moran in clinic when she attempted to pop what appeared to be described as a digital mucoid cyst to the distal interphalangeal joint with a needle. She subsequently developed a deep infection after this. Decision was made for repeat incision and drainage exploration of the wound site for decompression of any residual abscess and for digital arthroplasty due to hammertoe deformity and potential joint infection. Patient wished to proceed. Patient has been receiving IV antibiotics and is currently receiving IV Unasyn for a staph and strep infection. Surgeon: Jonah Alonso container packer operator: None Type of Anesthesia: MAC Special Medications: 20 cc half percent Marcaine plain Specimen's removed: Middle phalangeal head right third toe -pathology/microbiology Prelavage tissue culture right third toe Post lavage swab culture right third toe Drains: None Estimated Blood Loss (mL): Minimal Description of Procedure: Patient was brought back to the operating placed comfortably in supine position on the operating room table. Patient was induced under MAC anesthesia. Well-padded right ankle tourniquet was applied. Preoperatively 10 cc half percent Marcaine plain were used in a digital block technique to block the right third toe using standard aseptic technique. Right lower extremity was then scrubbed prepped and draped using typical aseptic fashion. Right lower extremity was elevated exsanguinated tourniquet was inflated 250 mmHg. Procedure #1 incision and drainage of abscess down to level of distal interphalangeal joint via arthrotomy: The full-thickness wound noted to the dorsal lateral distal interphalangeal joint where a incision and drainage had been performed was extended proximally distally approximately half a centimeter and all nonviable tissue was then debrided using pickups and 15 blade and passed the back table for prelavage tissue culture. An arthrotomy was performed into the distal interphalangeal joint transversely and there is noted to be purulent drainage extending from the distal interphalangeal joint. Procedure #2 arthroplasty distal interphalangeal joint right third digit: next, using a #15 blade the medial lateral dorsal and plantar capsular ligamentous structures were released from the distal interphalangeal joint and the middle phalangeal head was excised using bone cutting forceps and passed to the back table table and split for have to be sent to pathology and the other half percent to microbiology. No residual purulence noted at this time. All remaining tissue after tourniquet was let down noted to be healthy and bleeding. No residual nonviable tissue noted. Site was flushed with copious amounts of normal sterile saline. Post lavage swab cultures were taken. Procedure #3 delayed primary closure right third toe: Due to confidence and clearance of deep infection a delayed primary closure to the full-thickness wound that was created via initial incision and drainage by Dr. Moran on 11-17-2023 was performed. The medial lateral skin edges were mobilized and brought into gentle approximation under light tension and sutured using simple interrupted 4-0 nylon. 3 total stitches were applied. Site was then dressed with Betadine Adaptic 4 x 4's Kerlix and a gently wrapped Peter bandage. Prior to final application of the dressing additional 10 cc were applied in a digital block for pain control postoperatively. This totals 20 cc of half percent Marcaine plain. Patient was transported to PACU vital signs stable and vascular status intact all digits for further monitoring prior to transfer back to floor. Patient tolerated procedure and anesthesia well apparent satisfactory condition. No complications Adequate decomp compression of distal interphalangeal joint for infection Admit VTE Documentation VTE Present on Admission: Yes VTE Pharm Prophylaxis ordered?: Yes
--- NOTE | 2023-11-21 13:52 | WOUNDNOTE ---
Pt just back to unit from surgery. will leave dressing in place and assess in am.
[2023-11-21 14:02] LABS: Bedside Glucose 123 mg/dL (74-106)
--- NOTE | 2023-11-21 14:25 | CHAPLAIN ---
Type of Pastoral Visit ___ Initial Visit ___ Follow-up Visit ___ On-call Visit ___ General Patient Visit ___ Spiritual Assessment ___ Family Conference ___ Bereavement ___ Rapid Response ___ Code Blue ___ Other (describe below) Pastoral Care Referral From ___ Patient ___ Family ___ Nurse ___ Physician ___ Landscape Crew Leader ___ [employer]inct Police Sergeant ___ Other (describe below) Sacrament/Intervention ___ Active listening ___ Anointing ___ Restorationist ___ Bereavement ___ Communion ___ Imani exploration ___ ___ Life review ___ Prayer ___ Reconciliation ___ Sacrament of Sick ___ Supportive presence ___ Wedding ___ Other (describe below) Pastoral Comments patient and bed are out of the room; left a calling card
[2023-11-21] MEDS: oxyCODONE 5 MG Tablet PO (15:38)
--- NOTE | 2023-11-21 16:18 | PCM.PN.ID ---
Physical Exam Narrative Feeling better, no fever, had surgery today. Const alert and no apparent distress General Appearance: cooperative Resp normal air movement and clear to auscultation bilaterally Cardio regular rate and regular rhythm GI soft to palpation, non-tender and non-distended Skin no rashes or lesions noted Skin Narrative: foot wrapped ID ID: Route of nutrition/ use of supplements: [] Nutritional Intake: [] IV Site: [] Dorsey Catheter: [] Assessment & Plan Assessment/Plan (1) Diabetic infection of right foot: PLAN: MRI showed no osteo. Taken to OR 11/21/[address] Alonso for septic arthritis of R 3rd toe. Wound cx with GAS and MS-CoNS. Vanc stopped. On unasyn. Plan on discharge will be 3 week po augmentin 875mg bid, stop date 12/13/23. Will follow
[2023-11-21 16:45] LABS: Bedside Glucose 228 mg/dL (74-106)
[2023-11-21] MEDS: Ibuprofen 400 MG Tablet PO (17:13)
[2023-11-21] MEDS: Amox/Clavulanate 875 MG Tablet PO (17:15)
[2023-11-21] MEDS: Insulin Lispro 100 UNIT/ML INSULN.PEN SC ×2 (17:15→22:02)
[2023-11-21] MEDS: Heparin Injection (Vial) 5,000 UNIT/ML VIAL 5000 UNIT SC (22:01)
[2023-11-21] MEDS: Venlafaxine XR 150 MG Capsule PO (22:01)
[2023-11-21] MEDS: Atorvastatin Calcium 20 MG Tablet PO (22:02)
[2023-11-21 22:48] LABS: Bedside Glucose 159 mg/dL (74-106)
[2023-11-22 02:00] VITALS: BP 103/67; PULSE 86; RESP 16; TEMP 36.6; O2SAT 95
[2023-11-22] MEDS: Insulin Lispro 100 UNIT/ML INSULN.PEN SC ×4 (06:11→20:10)
[2023-11-22 06:34] LABS: Bedside Glucose 171 mg/dL (74-106)
[2023-11-22 07:05] LABS: Hematocrit 33.8 % (37-47); Hemoglobin 11.3 g/dL (12.0-15.0); Mean Corp Hgb Conc 33.4 g/dL (32-36); Mean Corpuscular Hgb 30.5 pg (27.0-32.0); Mean Corpuscular Volume 91.4 fL (81-99); Mean Platelet Vol. 9.2 fl (6.2-12.0); Platelet Count 285 K/mm3 (150-450); RBC Distribution Width CV 13.8 % (11.6-14.6); RBC Distribution Width SD 46.5 fl (35.1-43.9); White Blood Count 6.3 K/mm3 (4.4-11.0)
[2023-11-22] MEDS: Heparin Injection (Vial) 5,000 UNIT/ML VIAL 5000 UNIT SC ×2 (07:34→20:06)
[2023-11-22] MEDS: Amox/Clavulanate 875 MG Tablet PO (07:34)
[2023-11-22 07:52] LABS: Anion Gap 7 (5-15); BUN 10 mg/dL (7-18); BUN/Creat Ratio 18.3 RATIO (10-20); Calcium,Total 9.6 mg/dL (8.5-10.1); Chloride 107 mmol/L (98-107); Creatinine, Serum 0.54 mg/dL (0.55-1.02); EST Glomerular Filtration Rate 117 mL/min (>60); Est Glom Filt Rate - Afr Amer 142 mL/min (>60); Estimated Creatinine Clearance 66.79 ml/min; Glucose 191 mg/dL (74-106); Potassium 3.6 mmol/L (3.5-5.1); Sodium Level 140 mmol/L (136-145)
[2023-11-22 08:33] VITALS: BP 118/72; PULSE 85; RESP 16; TEMP 36.5; O2SAT 95
--- NOTE | 2023-11-22 10:01 | PCM.PROGNOTE ---
Subjective Subjective 68-year-old female 1 day postop. Denies constitutional's. Denies chest pain calf pain shortness of breath. Voiding urine passing gas. No new complaints overnight. Patient notes resolution of pain. Objective Data Objective Data Vital Signs: Vital Signs Temp Pulse Resp BP Pulse Ox O2 Del Method 97.7 F L 85 16 118/72 95 Room Air 11/22/23 08:33 11/22/23 08:33 11/22/23 08:33 11/22/23 08:33 11/22/23 08:33 11/22/23 08:33 Oxygen Delivery Method Room Air Weight: 72.688 kg Body Mass Index (BMI) 25.8 Intake & Output: Intake and Output for Last 24 Hours 11/20/23 11/21/23 11/22/23 23:59 23:59 23:59 Intake Total 942.25 / 942.25 801.5 / 801.5 Balance 942.25 / 942.25 801.5 / 801.5 Lab / Micro Data 11/22/23 06:30 11/22/23 06:30 Labs: Laboratory Results - last 24 hr 11/21/23 13:23: POC Glucose 123 H 11/21/23 16:22: POC Glucose 228 H 11/21/23 22:00: POC Glucose 159 H 11/22/23 06:10: POC Glucose 171 H 11/22/23 06:30: WBC 6.3, RBC 3.70 L, Hgb 11.3 L, Hct 33.8 L, MCV 91.4, MCH 30.5, MCHC 33.4, RDW Std Deviation 46.5 H, RDW Coeff of Bran 13.8, Plt Count 285, MPV 9.2, Sodium 140, Potassium 3.6, Chloride 107, Carbon Dioxide 26.0, Anion Gap 7, BUN 10, Creatinine 0.54 L, Estim Creat Clear Calc 66.79, Est GFR (MDRD) Af Amer 142, Est GFR (MDRD) Non-Af 117, BUN/Creatinine Ratio 18.3, Glucose 191 H, Calcium 9.6 Micro: Microbiology 11/20/23 09:55 Wound Abcess - Toe Gram Stain - Final 11/20/23 09:55 Wound Abcess - Toe Wound Culture - Final Streptococcus group A 11/20/23 09:55 Wound Abcess - Toe Anaerobic Culture - Final No anaerobic bacteria isolated. 11/21/23 12:22 Tissue - 3rd Toe Wound Culture - Preliminary Streptococcus group A 11/21/23 12:22 Bone - 3rd Toe Wound Culture - Preliminary Streptococcus group A 11/21/23 12:22 Tissue - 3rd Toe Wound Culture - Preliminary No growth-Final to follow Radiography Diagnostic Testing: Radiology Impression Foot X-Ray 11/21/23 11:00 IMPRESSION: Intraoperative fluoroscopic services provided for partial resection of the middle phalanx of the third toe. Electronically Signed: Mitch Street MD at 12:55 EDT , Physical Exam Narrative Neurovascular status unchanged. Improving erythema edema to right third digit and forefoot. Well-approximated incisional site to the dorsal third digit on the right foot with intact sutures. No residual purulent drainage at current. No gross deformity noted. Assessment & Plan Assessment/Plan (1) Diabetic infection of right foot: PLAN: Exam performed improving cellulitis Wound cultures, tissue cultures, bone cultures all positive for group A strep likely strep pyogenes. Patient receiving IV Unasyn ID recommending p.o. Augmentin for 3 weeks 875 twice daily upon discharge We will continue to observe patient for additional day for resolution of cellulitis. (2) Type 2 diabetes mellitus with foot ulcer: QUALIFIERS: Diabetes mellitus skilled nursing insulin use: without skilled nursing use Qualified Code(s): E11.621 - Type 2 diabetes mellitus with foot ulcer; L97.509 - Non-pressure chronic ulcer of other part of unspecified foot with unspecified severity (3) Cellulitis of right lower limb:
[2023-11-22] MEDS: Ibuprofen 400 MG Tablet PO (11:14)
[2023-11-22 11:28] VITALS: BP 106/74; PULSE 91; RESP 16; TEMP 36.8; O2SAT 95
--- NOTE | 2023-11-22 11:46 | PCM.PN.HOSP ---
Reason for Visit Reason for Visit: Diagnoses Type 2 diabetes mellitus with foot ulcer (11/18/23) Type 2 diabetes mellitus with other skin complications (11/18/23) Other acute postprocedural pain (11/18/23) Cellulitis of right lower limb (11/18/23) Local infection of the skin and subcutaneous tissue, unspecified (11/18/23) Non-pressure chronic ulcer of other part of unspecified foot with unspecified severity (11/18/23) Pyogenic arthritis, unspecified (11/18/23) Other hammer toe(s) (acquired), right foot (11/18/23) Subjective Subjective No acute events overnight. Patient seen at bedside this morning. Sitting comfortably in bedside chair, conversing normally, no acute distress. Patient feels well this morning, states that her right foot is not any pain at this time. She has been walking with a walker in the room and putting weight on her right heel and has been tolerating ambulation without issue. Podiatry saw patient earlier this morning and noted that she should remain hospitalized for at least 1 more day for further IV antibiotics and healing of wound. Patient has no other acute concerns this time. Objective Data Objective Data Vital Signs: Vital Signs Temp Pulse Resp BP Pulse Ox O2 Del Method 98.3 F 91 16 106/74 95 Room Air 11/22/23 11:28 11/22/23 11:28 11/22/23 11:28 11/22/23 11:28 11/22/23 11:28 11/22/23 11:28 Oxygen Delivery Method Room Air Weight: 72.688 kg Body Mass Index (BMI) 25.8 Intake & Output: Intake and Output for Last 24 Hours 11/20/23 11/21/23 11/22/23 23:59 23:59 23:59 Intake Total 942.25 / 942.25 801.5 / 801.5 400 / 400 Balance 942.25 / 942.25 801.5 / 801.5 400 / 400 Lab / Micro Data 11/22/23 06:30 11/22/23 06:30 Labs: Laboratory Results - last 24 hr 11/21/23 13:23: POC Glucose 123 H 11/21/23 16:22: POC Glucose 228 H 11/21/23 22:00: POC Glucose 159 H 11/22/23 06:10: POC Glucose 171 H 11/22/23 06:30: WBC 6.3, RBC 3.70 L, Hgb 11.3 L, Hct 33.8 L, MCV 91.4, MCH 30.5, MCHC 33.4, RDW Std Deviation 46.5 H, RDW Coeff of Bran 13.8, Plt Count 285, MPV 9.2, Sodium 140, Potassium 3.6, Chloride 107, Carbon Dioxide 26.0, Anion Gap 7, BUN 10, Creatinine 0.54 L, Estim Creat Clear Calc 66.79, Est GFR (MDRD) Af Amer 142, Est GFR (MDRD) Non-Af 117, BUN/Creatinine Ratio 18.3, Glucose 191 H, Calcium 9.6 Micro: Microbiology 11/20/23 09:55 Wound Abcess - Toe Gram Stain - Final 11/20/23 09:55 Wound Abcess - Toe Wound Culture - Final Streptococcus group A 11/20/23 09:55 Wound Abcess - Toe Anaerobic Culture - Final No anaerobic bacteria isolated. 11/21/23 12:22 Tissue - 3rd Toe Wound Culture - Preliminary Streptococcus group A 11/21/23 12:22 Bone - 3rd Toe Wound Culture - Preliminary Streptococcus group A 11/21/23 12:22 Tissue - 3rd Toe Wound Culture - Preliminary No growth-Final to follow Radiography Diagnostic Testing: Radiology Impression Foot X-Ray 11/21/23 11:00 IMPRESSION: Intraoperative fluoroscopic services provided for partial resection of the middle phalanx of the third toe. Electronically Signed: Mitch Street MD at 12:55 EDT , Physical Exam Const alert, oriented x3, no apparent distress and average body habitus Constitutional Narrative: Pleasant elderly female, sitting uncomfortably in bedside chair, conversing normally, no acute distress. General Appearance: cooperative and comfortable HEENT normocephalic, head/scalp atraumatic, hearing grossly normal bilaterally, nasal mucous membranes and turbinates normal and moist oral mucous membranes Eyes PERRL, EOMs intact bilaterally and conjunctivae normal Neck full ROM Chest inspection of chest normal Resp normal respiratory effort, normal air movement, no use of accessory muscles and clear to auscultation bilaterally Cardio regular rate, regular rhythm, no murmurs and peripheral pulses 2+ throughout GI normal to inspection, nondistended, normoactive bowel sounds, soft to palpation, non-tender and non-distended Back/Spine normal ROM Extremity no pedal edema Extremity Narrative: Right foot wrapped with Peter wrap down to the toes. Neuro moves all extremities and no focal motor deficits Speech: speech normal Psych mental status grossly normal Assessment & Plan Assessment/Plan (1) Diabetic infection of right foot: PLAN: Plan Patient is a 68-year-old female who presented to [facility] on 11/18/2023 as a direct admit for worsening right third toe infection with cellulitis. 1. Right third toe diabetic foot wound with cellulitis ? Podiatry, infectious disease and wound care following. PT/OT and case management following. S/p wound debridement with podiatry on 11/20, wound cultures preliminarily growing group A strep. Initial bedside wound cultures from 11/16 grew Strep pyogenes and Staph pseudintermedius. Can continue IV Unasyn while inpatient. Per ID, will plan for 3-week course of p.o. Augmentin total on discharge. Chronic medical conditions: ? Type 2 diabetes mellitus: Home regimen of metformin 1000 mg twice daily, Ozempic 1 mg weekly. A1c 8.0% on admit, increased from previous A1c of 7.2% in May 2023. Continue sliding scale insulin with meals as needed while inpatient. ? Hyperlipidemia: Continue home statin. ? Depression: Continue home venlafaxine. ? Hypertension: Holding home lisinopril?hydrochlorothiazide for now. DVT prophylaxis: Heparin subcu CODE STATUS: Full code, unverified Expected disposition: Home, 1 to 2 days Total clinical time spent by myself addressing the patient's medical issues, reviewing all the data, and collaborating with patient's care team: 35 minutes. Charges/Coding Visit Charges Inpatient E&M: 45129 Subs Hosp L2
--- NOTE | 2023-11-22 11:52 | WOUNDNOTE ---
wound photo: right foot
[2023-11-22 11:54] LABS: Bedside Glucose 156 mg/dL (74-106)
[2023-11-22] MEDS: Diphenoxylate/Atrop 1 Tablet PO ×2 (12:27→19:54)
[2023-11-22] MEDS: Ampicillin/Sulbactam 3 GM in 0.9% Normal Saline (100mL MB+) 100 ML IV ×3 (12:27→23:38)
[2023-11-22] MEDS: 0.9% Saline Lock 10 ML Syringe IV ×2 (12:28→17:50)
--- NOTE | 2023-11-22 14:43 | CHAPLAIN ---
Type of Pastoral Visit _x__ Initial Visit ___ Follow-up Visit ___ On-call Visit ___ General Patient Visit ___ Spiritual Assessment ___ Family Conference ___ Bereavement ___ Rapid Response ___ Code Blue ___ Other (describe below) Pastoral Care Referral From _x__ Patient ___ Family ___ Nurse ___ Physician ___ Grounds/Maintenance Specialist ___ Air Tool Operator ___ Other (describe below) Sacrament/Intervention _x__ Active listening ___ Anointing ___ Lutheran ___ Bereavement ___ Communion _x__ Imani exploration ___ _x__ Life review _x__ Prayer ___ Reconciliation ___ Sacrament of Sick _x__ Supportive presence ___ Wedding ___ Other (describe below) Pastoral Comments patient is welcoming and upbeat about her situation; pt also speaks of determination to be home before Tuesday so she can go to [facility] services; after reviewing some of her life she reveals that multiple family members have over the last couple of years; explored how this truth has impacted her outlook, coping, imani, and family; pt displays resilience and hope for the future but admits to concerns for her grandchildren; pt welcomes the presence and prayers of this outsole caser for support today
[2023-11-22 15:03] VITALS: BP 132/69; PULSE 95; RESP 16; TEMP 36.6; O2SAT 98
[2023-11-22 16:21] LABS: Bedside Glucose 159 mg/dL (74-106)
[2023-11-22] MEDS: Venlafaxine XR 150 MG Capsule PO (20:06)
[2023-11-22] MEDS: Atorvastatin Calcium 20 MG Tablet PO (20:06)
[2023-11-22 20:20] VITALS: BP 125/68; PULSE 86; RESP 16; TEMP 36.7; O2SAT 98
[2023-11-22 23:48] LABS: Bedside Glucose 211 mg/dL (74-106)
[2023-11-23 01:00] VITALS: BP 124/64; PULSE 90; RESP 18; TEMP 36.9; O2SAT 98
[2023-11-23] MEDS: Ampicillin/Sulbactam 3 GM in 0.9% Normal Saline (100mL MB+) 100 ML IV ×2 (05:32→11:11)
[2023-11-23 05:40] VITALS: BP 123/63; PULSE 84; RESP 18; TEMP 36.9; O2SAT 96
[2023-11-23 07:06] LABS: Bedside Glucose 146 mg/dL (74-106)
[2023-11-23 08:00] VITALS: BP 123/71; PULSE 85; RESP 14; TEMP 36.7; O2SAT 97
[2023-11-23] MEDS: Heparin Injection (Vial) 5,000 UNIT/ML VIAL 5000 UNIT SC (10:07)
[2023-11-23] MEDS: Diphenoxylate/Atrop 1 Tablet PO (10:13)
[2023-11-23] MEDS: 0.9% Saline Lock 10 ML Syringe IV (11:11)
[2023-11-23 11:14] LABS: Absolute Neutrophil Count 3.6 X10^3/uL (2.0-7.7); Basophil# 0.04 X10^3/uL; Basophil% 0.7 % (0-1); Eosinophil# 0.28 X10^3/uL; Eosinophils% 4.6 % (0-5); Hematocrit 35.3 % (37-47); Hemoglobin 11.7 g/dL (12.0-15.0); Lymphocyte % 27.7 % (19-41); Mean Corp Hgb Conc 33.1 g/dL (32-36); Mean Corpuscular Hgb 30.5 pg (27.0-32.0); Mean Corpuscular Volume 91.9 fL (81-99); Mean Platelet Vol. 9.2 fl (6.2-12.0); Monocyte# 0.48 X10^3/uL; Monocyte% 7.8 % (0-10); NRBC Flagged by Analyzer 0 % (0-5); Neutrophil # 3.59 X10^3/uL (2.7-7.7); Neutrophil % 58.5 % (47-70); Platelet Count 307 K/mm3 (150-450); RBC Distribution Width CV 13.8 % (11.6-14.6); RBC Distribution Width SD 46.1 fl (35.1-43.9); Red Blood Count 3.84 M/mm3 (4.2-5.4); White Blood Count 6.1 K/mm3 (4.4-11.0)
[2023-11-23] MEDS: Insulin Lispro 100 UNIT/ML INSULN.PEN SC (11:14)
--- NOTE | 2023-11-23 11:26 | PCM.PN.HOSP ---
Reason for Visit Reason for Visit: Diagnoses Type 2 diabetes mellitus with foot ulcer (11/18/23) Type 2 diabetes mellitus with other skin complications (11/18/23) Other acute postprocedural pain (11/18/23) Cellulitis of right lower limb (11/18/23) Local infection of the skin and subcutaneous tissue, unspecified (11/18/23) Non-pressure chronic ulcer of other part of unspecified foot with unspecified severity (11/18/23) Pyogenic arthritis, unspecified (11/18/23) Other hammer toe(s) (acquired), right foot (11/18/23) Subjective Subjective No acute events overnight. Patient seen at bedside this morning. Sitting comfortably in bedside chair, in no acute distress. Feels ready to be discharged in the hospital today if podiatry is fine with her leaving. She denies any right toe/foot pain at rest and has been ambulating well with walker. No other acute concerns this time. Objective Data Objective Data Vital Signs: Vital Signs Temp Pulse Resp BP Pulse Ox O2 Del Method 98.0 F 85 14 123/71 H 97 Room Air 11/23/23 08:00 11/23/23 08:00 11/23/23 08:00 11/23/23 08:00 11/23/23 08:00 11/23/23 08:00 Oxygen Delivery Method Room Air Weight: 72.688 kg Body Mass Index (BMI) 25.8 Intake & Output: Intake and Output for Last 24 Hours 11/21/23 11/22/23 11/23/23 23:59 23:59 23:59 Intake Total 801.5 / 801.5 984 / 984 344 / 344 Balance 801.5 / 801.5 984 / 984 344 / 344 Lab / Micro Data 11/23/23 10:56 11/23/23 10:56 Labs: Laboratory Results - last 24 hr 11/22/23 11:10: POC Glucose 156 H 11/22/23 15:58: POC Glucose 159 H 11/22/23 20:09: POC Glucose 211 H 11/23/23 06:31: POC Glucose 146 H 11/23/23 10:56: WBC 6.1, RBC 3.84 L, Hgb 11.7 L, Hct 35.3 L, MCV 91.9, MCH 30.5, MCHC 33.1, RDW Std Deviation 46.1 H, RDW Coeff of Bran 13.8, Plt Count 307, MPV 9.2, Immature Gran % (Auto) 0.700, Neut % (Auto) 58.5, Lymph % (Auto) 27.7, [place] % (Auto) 7.8, Eos % (Auto) 4.6, Baso % (Auto) 0.7, Absolute Neuts (auto) 3.6, Absolute Lymphs (auto) 1.70, Nucleated RBC % 0 Micro: Microbiology 11/21/23 12:22 Tissue - 3rd Toe Gram Stain - Final 11/21/23 12:22 Tissue - 3rd Toe Wound Culture - Final Streptococcus group A 11/21/23 12:22 Tissue - 3rd Toe Anaerobic Culture - Final No anaerobic bacteria isolated. 11/21/23 12:22 Bone - 3rd Toe Gram Stain - Final 11/21/23 12:22 Bone - 3rd Toe Wound Culture - Final Streptococcus group A 11/21/23 12:22 Bone - 3rd Toe Anaerobic Culture - Final No anaerobic bacteria isolated. 11/21/23 12:22 Tissue - 3rd Toe Gram Stain - Final 11/21/23 12:22 Tissue - 3rd Toe Wound Culture - Preliminary Beta streptococcus 11/21/23 12:22 Tissue - 3rd Toe Anaerobic Culture - Final No anaerobic bacteria isolated. 11/20/23 09:55 Wound Abcess - Toe Gram Stain - Final 11/20/23 09:55 Wound Abcess - Toe Wound Culture - Final Streptococcus group A 11/20/23 09:55 Wound Abcess - Toe Anaerobic Culture - Final No anaerobic bacteria isolated. Physical Exam Const alert, oriented x3, no apparent distress and average body habitus Constitutional Narrative: Pleasant elderly female, sitting uncomfortably in bedside chair, conversing normally, no acute distress. General Appearance: cooperative and comfortable HEENT normocephalic, head/scalp atraumatic, hearing grossly normal bilaterally, nasal mucous membranes and turbinates normal and moist oral mucous membranes Eyes PERRL, EOMs intact bilaterally and conjunctivae normal Neck full ROM Chest inspection of chest normal Resp normal respiratory effort, normal air movement, no use of accessory muscles and clear to auscultation bilaterally Cardio regular rate, regular rhythm, no murmurs and peripheral pulses 2+ throughout GI normal to inspection, nondistended, normoactive bowel sounds, soft to palpation, non-tender and non-distended Back/Spine normal ROM Extremity no pedal edema Extremity Narrative: Right foot wrapped with Peter wrap down to the toes. Neuro moves all extremities and no focal motor deficits Speech: speech normal Psych mental status grossly normal Assessment & Plan Assessment/Plan (1) Diabetic infection of right foot: PLAN: Plan Patient is a 68-year-old female who presented to [facility] on 11/18/2023 as a direct admit for worsening right third toe infection with cellulitis. 1. Right third toe diabetic foot wound with cellulitis ? Podiatry, infectious disease and wound care following. PT/OT and case management following. S/p wound debridement with podiatry on 11/20, wound cultures preliminarily growing group A strep. Initial bedside wound cultures from 11/16 grew Strep pyogenes and Staph pseudintermedius. Continue IV Unasyn while inpatient. Per ID, will plan for 3-week course of p.o. Augmentin total on discharge, prescription sent. Chronic medical conditions: ? Type 2 diabetes mellitus: Home regimen of metformin 1000 mg twice daily, Ozempic 1 mg weekly. A1c 8.0% on admit, increased from previous A1c of 7.2% in May 2023. Continue sliding scale insulin with meals as needed while inpatient. Okay to resume home regimen on discharge. ? Hyperlipidemia: Continue home statin. ? Depression: Continue home venlafaxine. ? Hypertension: Held home lisinopril?hydrochlorothiazide during admission, okay to resume on discharge. DVT prophylaxis: Heparin subcu CODE STATUS: Full code, unverified Expected disposition: Home, 1 to 2 days Total clinical time spent by myself addressing the patient's medical issues, reviewing all the data, and collaborating with patient's care team: 35 minutes. Charges/Coding Visit Charges Inpatient E&M: 90686 Subs Hosp L2
[2023-11-23 11:35] LABS: Bedside Glucose 159 mg/dL (74-106)
[2023-11-23 11:47] LABS: Anion Gap 3 (5-15); BUN 10 mg/dL (7-18); BUN/Creat Ratio 13.4 RATIO (10-20); Calcium,Total 8.9 mg/dL (8.5-10.1); Chloride 105 mmol/L (98-107); Creatinine, Serum 0.74 mg/dL (0.55-1.02); EST Glomerular Filtration Rate 82 mL/min (>60); Est Glom Filt Rate - Afr Amer 99 mL/min (>60); Estimated Creatinine Clearance 66.79 ml/min; Glucose 187 mg/dL (74-106); Potassium 3.7 mmol/L (3.5-5.1); Sodium Level 139 mmol/L (136-145)
[2023-11-23 12:06] VITALS: BP 130/64; PULSE 93; RESP 14; TEMP 36.8; O2SAT 97
--- NOTE | 2023-11-23 12:06 | PCM.PROGNOTE ---
Subjective Subjective Denies constitutional's. Pain controlled. No issues overnight. Objective Data Objective Data Vital Signs: Vital Signs Temp Pulse Resp BP Pulse Ox O2 Del Method 98.0 F 85 14 123/71 H 97 Room Air 11/23/23 08:00 11/23/23 08:00 11/23/23 08:00 11/23/23 08:00 11/23/23 08:00 11/23/23 08:00 Oxygen Delivery Method Room Air Weight: 72.688 kg Body Mass Index (BMI) 25.8 Intake & Output: Intake and Output for Last 24 Hours 11/21/23 11/22/23 11/23/23 23:59 23:59 23:59 Intake Total 801.5 / 801.5 984 / 984 344 / 344 Balance 801.5 / 801.5 984 / 984 344 / 344 Lab / Micro Data 11/23/23 10:56 11/23/23 10:56 Labs: Laboratory Results - last 24 hr 11/22/23 15:58: POC Glucose 159 H 11/22/23 20:09: POC Glucose 211 H 11/23/23 06:31: POC Glucose 146 H 11/23/23 10:56: WBC 6.1, RBC 3.84 L, Hgb 11.7 L, Hct 35.3 L, MCV 91.9, MCH 30.5, MCHC 33.1, RDW Std Deviation 46.1 H, RDW Coeff of Bran 13.8, Plt Count 307, MPV 9.2, Immature Gran % (Auto) 0.700, Neut % (Auto) 58.5, Lymph % (Auto) 27.7, [place] % (Auto) 7.8, Eos % (Auto) 4.6, Baso % (Auto) 0.7, Absolute Neuts (auto) 3.6, Absolute Lymphs (auto) 1.70, Nucleated RBC % 0, Sodium 139, Potassium 3.7, Chloride 105, Carbon Dioxide 31.0, Anion Gap 3 L, BUN 10, Creatinine 0.74, Estim Creat Clear Calc 66.79, Est GFR (MDRD) Af Amer 99, Est GFR (MDRD) Non-Af 82, BUN/Creatinine Ratio 13.4, Glucose 187 H, Calcium 8.9, C-React Prot Ext Range 31.00 H 11/23/23 11:10: POC Glucose 159 H Micro: Microbiology 11/21/23 12:22 Tissue - 3rd Toe Gram Stain - Final 11/21/23 12:22 Tissue - 3rd Toe Wound Culture - Final Streptococcus group A 11/21/23 12:22 Tissue - 3rd Toe Anaerobic Culture - Final No anaerobic bacteria isolated. 11/21/23 12:22 Bone - 3rd Toe Gram Stain - Final 11/21/23 12:22 Bone - 3rd Toe Wound Culture - Final Streptococcus group A 11/21/23 12:22 Bone - 3rd Toe Anaerobic Culture - Final No anaerobic bacteria isolated. 11/21/23 12:22 Tissue - 3rd Toe Gram Stain - Final 11/21/23 12:22 Tissue - 3rd Toe Wound Culture - Preliminary Beta streptococcus 11/21/23 12:22 Tissue - 3rd Toe Anaerobic Culture - Final No anaerobic bacteria isolated. 11/20/23 09:55 Wound Abcess - Toe Gram Stain - Final 11/20/23 09:55 Wound Abcess - Toe Wound Culture - Final Streptococcus group A 11/20/23 09:55 Wound Abcess - Toe Anaerobic Culture - Final No anaerobic bacteria isolated. Physical Exam Narrative Neurovascular status unchanged. Improving erythema edema to right third digit and forefoot. Well-approximated incisional site to the dorsal third digit on the right foot with intact sutures. No residual purulent drainage at current. No gross deformity noted. Const alert, oriented x3 and no apparent distress Constitutional Narrative: There is wound to the lateral right 2nd toe with some serous drainage, there is erythema and edema to the toe with erythema traveling to dorsal foot with streaking, there is no necrosis, no maloder. No other open lesions to the right foot either, CFT< 2 seconds to all toes with no evidence of acute ischemia to the foot, there is POP to the 2nd toe, no other pain to the rest of the foot or ankle. Assessment & Plan Assessment/Plan (1) Diabetic infection of right foot: PLAN: Exam performed improving cellulitis Wound cultures, tissue cultures, bone cultures all positive for group A strep likely strep pyogenes. Patient receiving IV Unasyn ID recommending p.o. Augmentin for 3 weeks 875 twice daily upon discharge We will continue to observe patient for additional day for resolution of cellulitis. Patient discharged today. (2) Type 2 diabetes mellitus with foot ulcer: QUALIFIERS: Diabetes mellitus supervisor intermediates insulin use: without supervisor intermediates use Qualified Code(s): E11.621 - Type 2 diabetes mellitus with foot ulcer; L97.509 - Non-pressure chronic ulcer of other part of unspecified foot with unspecified severity (3) Cellulitis of right lower limb:
--- NOTE | 2023-11-23 12:08 | PCM.DC.SUM ---
Providers Date of Admission: 11/18/23 Primary Care Physician: Dr. Kalyn Gordon, Consultations 11/18/23 13:52 Consult: Onc/Wound/band lining bander Routine Comment: Reason for Consult:: wound right 2nd toe 11/18/23 13:55 Consult: Hospitalist Routine Consulting Provider: [facility] Reason for Consult: diabetes, medical management EMERGENT Consult: No MD Notified: Yes Date Notified: 11/18/23 Time Notified: 13:58 Method of Notification: Text 11/18/23 14:03 Consult: Infectious Disease Routine Consulting Provider: Jose Elias Alaniz Reason for Consult: ulcer with infection right foot EMERGENT Consult: No MD Notified: Yes Date Notified: 11/18/23 Time Notified: 14:03 Method of Notification: Text Reason For Visit: DIABETIC FOOT INFECTION & RIGHT FOOT ABSCESS Diagnosis Discharge Diagnosis (1) Diabetic infection of right foot: Status: Acute Code(s): E11.628 - Type 2 diabetes mellitus with other skin complications; L08.9 - Local infection of the skin and subcutaneous tissue, unspecified Plan: Exam performed improving cellulitis Wound cultures, tissue cultures, bone cultures all positive for group A strep likely strep pyogenes. Patient receiving IV Unasyn ID recommending p.o. Augmentin for 3 weeks 875 twice daily upon discharge We will continue to observe patient for additional day for resolution of cellulitis. Patient discharged today. CRP downtrending from 81 on admission 11-18-2023 to 35 today. 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 Qualified Code(s): E11.621 - Type 2 diabetes mellitus with foot ulcer; L97.509 - Non-pressure chronic ulcer of other part of unspecified foot with unspecified severity (3) Cellulitis of right lower limb: Status: Acute Code(s): L03.115 - Cellulitis of right lower limb Medications at Discharge Home Medications metformin 500 mg tablet,extended release 24 hr 1,000 mg PO BID blood sugar 06/03/21 lisinopril 20 mg-hydrochlorothiazide 12.5 mg tablet 1 tab PO DAILY bp 10/11/22 rosuvastatin 10 mg tablet 10 mg PO QHS cholesterol 05/25/23 semaglutide 1 mg/dose (4 mg/3 mL) subcutaneous pen injector (Ozempic) 1 mg subcut QWEEK diabetes 05/25/23 venlafaxine 150 mg capsule,extended release 24 hr 150 mg PO QHS anxiety/depression 05/25/23 amoxicillin 875 mg-potassium clavulanate 125 mg tablet 1 tab PO BID #42 tabs 11/22/23 aspirin 81 mg capsule 162 mg (2 x 81 mg) PO DAILY 14 days #28 caps 11/22/23 oxycodone 5 mg tablet 5 mg PO Q6H PRN pain 7 days #28 tabs 11/22/23 Hospital Course Summary of Care Provided Hospital Course: Patient was admitted for infected right third toe not improving with outpatient I&D and p.o. antibiotics. Patient received IV antibiotics. Initially MRI did not yield any obvious abscess that was deep. Upon examination on 11/20/2023 there was noted to be increased purulence to the site extending down to the level of the distal interphalangeal joint. Decision was made for digital arthroplasty to that right third toe. Cultures positive for group A streptococcus including tissue cultures bone cultures and wound swab cultures. Patient's been receiving IV Unasyn. Improvement noted. Patient will be discharged on Augmentin. She will maintain heel weightbearing in surgical shoe. She will keep her dressing clean dry and intact till follow-up. She will follow-up tomorrow on 11/24/2023 in the outpatient setting. Physical Exam Narrative Neurovascular status unchanged. Improving erythema edema to right third digit and forefoot. Well-approximated incisional site to the dorsal third digit on the right foot with intact sutures. No residual purulent drainage at current. No gross deformity noted. Const alert, oriented x3 and no apparent distress Weight / BMI Weight Weight: 72.688 kg Body Mass Index (BMI) 25.8 ABG / Lab / Microbiology Data 11/23/23 10:56 11/23/23 10:56 Laboratory: Laboratory Results - last 24 hr 11/22/23 15:58: POC Glucose 159 H 11/22/23 20:09: POC Glucose 211 H 11/23/23 06:31: POC Glucose 146 H 11/23/23 10:56: WBC 6.1, RBC 3.84 L, Hgb 11.7 L, Hct 35.3 L, MCV 91.9, MCH 30.5, MCHC 33.1, RDW Std Deviation 46.1 H, RDW Coeff of Bran 13.8, Plt Count 307, MPV 9.2, Immature Gran % (Auto) 0.700, Neut % (Auto) 58.5, Lymph % (Auto) 27.7, [place] % (Auto) 7.8, Eos % (Auto) 4.6, Baso % (Auto) 0.7, Absolute Neuts (auto) 3.6, Absolute Lymphs (auto) 1.70, Nucleated RBC % 0, Sodium 139, Potassium 3.7, Chloride 105, Carbon Dioxide 31.0, Anion Gap 3 L, BUN 10, Creatinine 0.74, Estim Creat Clear Calc 66.79, Est GFR (MDRD) Af Amer 99, Est GFR (MDRD) Non-Af 82, BUN/Creatinine Ratio 13.4, Glucose 187 H, Calcium 8.9, C-React Prot Ext Range 31.00 H 11/23/23 11:10: POC Glucose 159 H Microbiology: Microbiology 11/21/23 12:22 Tissue - 3rd Toe Gram Stain - Final 11/21/23 12:22 Tissue - 3rd Toe Wound Culture - Final Streptococcus group A 11/21/23 12:22 Tissue - 3rd Toe Anaerobic Culture - Final No anaerobic bacteria isolated. 11/21/23 12:22 Bone - 3rd Toe Gram Stain - Final 11/21/23 12:22 Bone - 3rd Toe Wound Culture - Final Streptococcus group A 11/21/23 12:22 Bone - 3rd Toe Anaerobic Culture - Final No anaerobic bacteria isolated. 11/21/23 12:22 Tissue - 3rd Toe Gram Stain - Final 11/21/23 12:22 Tissue - 3rd Toe Wound Culture - Preliminary Beta streptococcus 11/21/23 12:22 Tissue - 3rd Toe Anaerobic Culture - Final No anaerobic bacteria isolated. 11/20/23 09:55 Wound Abcess - Toe Gram Stain - Final 11/20/23 09:55 Wound Abcess - Toe Wound Culture - Final Streptococcus group A 11/20/23 09:55 Wound Abcess - Toe Anaerobic Culture - Final No anaerobic bacteria isolated. Meaningful Use Info Meaningful Use Diagnoses (Choose all that apply): None applicable Discharge Plan Admission Admit Date/Time: 11/18/23 13:47 Attending Provider: Hernán Braswell Primary Care Provider: Kalyn Gordon Consulting Providers: Dash Vanessa; Jose Champion; Amira Norman; Forest Drummond; Deborah Kruse; Meghna Hines; Chloe Butler NP; Carli Lay; Ronnie Fish; Emilia Morales; Emilia Lucio; Jose Elias Alaniz Instructions Additional Instructions / Restrictions: Remain heel weightbearing to right foot protected by surgical shoe Keep dressing clean dry and intact till follow-up Ice behind knee 3 times a day Limit ambulation to within the house, elevate right lower extremity above the level of heart when at rest in supine position Take prescriptions as directed Discharge Orders/Prescriptions Prescriptions: New aspirin 81 mg capsule 162 mg PO DAILY 14 Days Qty: 28 0RF oxycodone 5 mg tablet 5 mg PO Q6H PRN (Reason: pain) 7 Days Qty: 28 0RF amoxicillin-pot clavulanate 875-125 mg tablet 1 tab PO BID Qty: 42 0RF Continued lisinopril-hydrochlorothiazide 20-12.5 mg tablet 1 tab PO DAILY Patient Comments: TAKE 1 TABLET BY MOUTH EVERY DAY metformin 500 mg tablet extended release 24 hr 1,000 mg PO BID Patient Comments: TAKE 2 TABLETS BY MOUTH TWICE A DAY rosuvastatin 10 mg tablet 10 mg PO QHS Patient Comments: TAKE 1 TABLET BY MOUTH AT BEDTIME Ozempic 1 mg/dose (4 mg/3 mL) pen injector 1 mg SUBCUT QWEEK Patient Comments: INJECT ONCE UNDER THE SKIN ONE TIME PER WEEK venlafaxine 150 mg capsule,extended release 24hr 150 mg PO QHS Patient Comments: TAKE 1 CAPSULE BY MOUTH EVERY DAY Referrals / Follow Up: Jonah Alonso DPM [Med Staff - Active Staff] - Kalyn Gordon DO [Primary Care Provider] - Disposition Disposition (needs filled in before D/C Order can be placed): Home, Self Care
--- NOTE | 2023-11-23 12:42 | PHA.DC.MC.R ---
Pharmacy [facility] has performed discharge medication reconciliation and counseling for this patient. 1. AUGMENTIN 875MG PO BID X 21 DAYS 2. ASPIRIN 162 MG PO DAILY X 14 DAYS 3. OXYCODONE 5MG PO Q6H PRN PAIN The patient's discharge medication list was reviewed for discrepancies and discrepancies were resolved. The patient was counseled on the following discharge medications and changes in medications for homegoing were reviewed. The Reason for Use, instructions for use, and potential side effects were reviewed for all new medications. The patient's questions regarding all of their medications were answered. The patient was able to verbally demonstrate an understanding of their discharge medications. Medications at Discharge Home Medications metformin 500 mg tablet,extended release 24 hr 1,000 mg PO BID blood sugar 06/03/21 lisinopril 20 mg-hydrochlorothiazide 12.5 mg tablet 1 tab PO DAILY bp 10/11/22 rosuvastatin 10 mg tablet 10 mg PO QHS cholesterol 05/25/23 semaglutide 1 mg/dose (4 mg/3 mL) subcutaneous pen injector (Ozempic) 1 mg subcut QWEEK diabetes 05/25/23 venlafaxine 150 mg capsule,extended release 24 hr 150 mg PO QHS anxiety/depression 05/25/23 amoxicillin 875 mg-potassium clavulanate 125 mg tablet 1 tab PO BID #42 tabs 11/22/23 aspirin 81 mg capsule 162 mg (2 x 81 mg) PO DAILY 14 days #28 caps 11/22/23 oxycodone 5 mg tablet 5 mg PO Q6H PRN pain 7 days #28 tabs 11/22/23
--- NOTE | 2023-11-23 13:15 | WOUNDNOTE ---
wound photo: right foot
== END 2023-11-23 14:00 | disposition home or self-care (01) | DRG 988 ==
PROVIDERS: Hospitalist; Internal Medicine Infectious Disease; Podiatrist; Admitting Provider Podiatrist; PCP Internal Medicine; Referring Provider Podiatrist; Visit Provider Podiatrist
PROC: 0S9P0ZZ Drainage of Right Toe Phalangeal Joint, Open Approach (ICD-10-PCS; principal; 2023-11-21 11:15)
DX: E11.621 Type 2 diabetes mellitus with foot ulcer (principal); M86.171 Other acute osteomyelitis, right ankle and foot; L03.115 Cellulitis of right lower limb; M00.271 Other streptococcal arthritis, right ankle and foot; L97.512 Non-pressure chronic ulcer of other part of right foot with fat layer exposed; B95.0 Streptococcus, group A, as the cause of diseases classified elsewhere; E11.628 Type 2 diabetes mellitus with other skin complications; E11.69 Type 2 diabetes mellitus with other specified complication; F32.A Depression, unspecified; I10 Essential (primary) hypertension; E78.00 Pure hypercholesterolemia, unspecified; F41.9 Anxiety disorder, unspecified; M20.41 Other hammer toe(s) (acquired), right foot; L03.031 Cellulitis of right toe; Z63.4 Disappearance and death of family member; Z79.82 Long term (current) use of aspirin; Z79.84 Long term (current) use of oral hypoglycemic drugs; Z79.85 Long-term (current) use of injectable non-insulin antidiabetic drugs; Z79.899 Other long term (current) drug therapy; Z86.16 Personal history of COVID-19
CPT/HCPCS: 36415; 73630; 73718; 76000; 80048; 80053; 80202; 82565; 82962; 83036; 85025; 85027; 85652; 86140; 87070; 87075; 87077; 87101; 87186; 87205; 87640; 88305; 88311; 97161; 97802; 97803; J7040; J7050; J7120; A4216; J0295; J0696; J2405

== ENCOUNTER → 2023-12-14 | Outpatient (CLI) | payer MEDICARE, OTHER, SELFPAY ==
[2023-12-14 11:35] LABS: Bacteria 0 SEEN /hpf (None Seen); Mucous, Urine 0 SEEN /hpf (<or=2+); Red Blood Cells-Urine 0 SEEN /hpf (0-5)
[2023-12-14 11:56] LABS: Absolute Lymphocyte Count 2.06 X10^3/uL (0.83-4.51); Absolute Neutrophil Count 3.3 X10^3/uL (2.0-7.7); Basophil# 0.05 X10^3/uL; Basophil% 0.8 % (0-1); Eosinophil# 0.33 X10^3/uL; Eosinophils% 5.3 % (0-5); Hematocrit 39.1 % (37-47); Hemoglobin 12.7 g/dL (12.0-15.0); Lymphocyte # 2.06 X10^3/ul (0.83-4.51); Lymphocyte % 32.9 % (19-41); Mean Corp Hgb Conc 32.5 g/dL (32-36); Mean Corpuscular Hgb 29.7 pg (27.0-32.0); Mean Corpuscular Volume 91.6 fL (81-99); Mean Platelet Vol. 9.4 fl (6.2-12.0); Monocyte# 0.54 X10^3/uL; Monocyte% 8.6 % (0-10); NRBC Flagged by Analyzer 0 % (0-5); Neutrophil # 3.26 X10^3/uL (2.7-7.7); Neutrophil % 51.9 % (47-70); Platelet Count 288 K/mm3 (150-450); RBC Distribution Width CV 13.8 % (11.6-14.6); RBC Distribution Width SD 46.2 fl (35.1-43.9); Red Blood Count 4.27 M/mm3 (4.2-5.4); White Blood Count 6.3 K/mm3 (4.4-11.0)
[2023-12-14 12:02] LABS: Color, Urine Yellow (Yellow); Glucose, Dipstick Normal (Normal); Ketone-Dipstick Negative (Negative); Leukocyte Esterase-Dipstick 25 /ul (Negative); Nitrite-Dipstick Negative (Negative); Occult Blood-Urine Negative /ul (Negative); Protein-Dipstick Negative (Negative); Specific Gravity, Urine 1.015 (1.002-1.030); Urine Bilirubin Dipstick Negative (Negative); Urine Clarity Sl. Cloudy (Clear); Urine Urobilinogen 1 mg/dl (Normal); Urine pH 6.5 (5.0 - 8.0)
[2023-12-14 12:10] LABS: Squamous Epithelial Cells - UA 0-5 SEEN /hpf (5-10); White Blood Cells 0-5 SEEN /hpf (0-5)
[2023-12-14 12:35] LABS: Microalbumin,Random Urine 6.9 mg/L (NO RANGE EST.)
[2023-12-14 12:37] LABS: ALB/GLOB Ratio 0.8 RATIO (0.9-2.4); AST(SGOT) 24 U/L (15-37); Alanine Aminotransfer ALT/SGPT 30 U/L (13-56); Albumin, Serum 3.3 g/dL (3.2-5.0); Alkaline Phosphatase 97 U/L (45-117); Anion Gap 4 (5-15); BUN 14 mg/dL (7-18); BUN/Creat Ratio 20.6 RATIO (10-20); Calcium,Total 8.7 mg/dL (8.5-10.1); Chloride 105 mmol/L (98-107); Cholesterol 133 mg/dL (200); Creatinine, Serum 0.68 mg/dL (0.55-1.02); EST Glomerular Filtration Rate 91 mL/min (>60); Est Glom Filt Rate - Afr Amer 110 mL/min (>60); Globulin 3.9 g/dL (2.2-4.2); Glucose 161 mg/dL (74-106); High Density Lipoprotein 53 mg/dL; Potassium 3.7 mmol/L (3.5-5.1); Protein, Total 7.2 g/dL (6.4-8.2); Sodium Level 138 mmol/L (136-145); Thyroid Stim Hormone (TSH) 0.56 uIU/mL (0.358-3.74); Triglycerides 92 mg/dL; Very Low Density Lipoprotein 18 mg/dL (5-40)
== END | disposition home or self-care (01) ==
LOC: LAB 11:25
PROVIDERS: PCP Internal Medicine; Referring Provider Internal Medicine; Visit Provider Internal Medicine
DX: E78.2 Mixed hyperlipidemia (principal); E11.65 Type 2 diabetes mellitus with hyperglycemia; R80.9 Proteinuria, unspecified; I10 Essential (primary) hypertension
CPT/HCPCS: 36415; 80053; 80061; 81001; 82043; 82570; 84443; 85025

== ENCOUNTER → 2024-06-19 | Outpatient (CLI) | payer MEDICARE, OTHER, SELFPAY ==
[2024-06-19 11:36] LABS: Bacteria 0 SEEN /hpf (None Seen); Mucous, Urine 0 SEEN /hpf (<or=2+); Red Blood Cells-Urine 0 SEEN /hpf (0-5)
[2024-06-19 12:05] LABS: Absolute Lymphocyte Count 1.79 X10^3/uL (0.83-4.51); Basophil# 0.04 X10^3/uL; Basophil% 0.6 % (0-1); Color, Urine Yellow (Yellow); Eosinophil# 0.27 X10^3/uL; Eosinophils% 4.1 % (0-5); Glucose, Dipstick 250 mg/dl (Normal); Hemoglobin 13.4 g/dL (12.0-15.0); Ketone-Dipstick Negative (Negative); Leukocyte Esterase-Dipstick 25 /ul (Negative); Lymphocyte # 1.79 X10^3/ul (0.83-4.51); Mean Corp Hgb Conc 33.5 g/dL (32-36); Mean Corpuscular Hgb 30.9 pg (27.0-32.0); Mean Corpuscular Volume 92.4 fL (81-99); Mean Platelet Vol. 9.3 fl (6.2-12.0); Monocyte# 0.57 X10^3/uL; Monocyte% 8.6 % (0-10); NRBC Flagged by Analyzer 0 % (0-5); Neutrophil # 3.96 X10^3/uL (2.7-7.7); Neutrophil % 59.5 % (47-70); Nitrite-Dipstick Negative (Negative); Occult Blood-Urine Negative /ul (Negative); Platelet Count 362 K/mm3 (150-450); Protein-Dipstick 15 mg/dl (Negative); RBC Distribution Width CV 13.4 % (11.6-14.6); RBC Distribution Width SD 45.9 fl (35.1-43.9); Red Blood Count 4.33 M/mm3 (4.2-5.4); Specific Gravity, Urine 1.025 (1.002-1.030); Urine Bilirubin Dipstick Negative (Negative); Urine Clarity Sl. Cloudy (Clear); Urine Urobilinogen Normal (Normal); White Blood Count 6.6 K/mm3 (4.4-11.0)
[2024-06-19 12:13] LABS: Squamous Epithelial Cells - UA 0-5 SEEN /hpf (5-10)
[2024-06-19 12:14] LABS: White Blood Cells 0-5 SEEN /hpf (0-5)
[2024-06-19 12:28] LABS: Microalbumin,Random Urine 7.1 mg/L (NO RANGE EST.); Microalbumin:Creatinine Ratio 5.2 mg/g CRE (<30 mg/g CRE)
[2024-06-19 12:48] LABS: ALB/GLOB Ratio 0.8 RATIO (0.9-2.4); AST(SGOT) 24 U/L (15-37); Alanine Aminotransfer ALT/SGPT 35 U/L (13-56); Albumin, Serum 3.3 g/dL (3.2-5.0); Alkaline Phosphatase 112 U/L (45-117); Anion Gap 8 (5-15); BUN 10 mg/dL (7-18); BUN/Creat Ratio 15.4 RATIO (10-20); Calcium,Total 8.9 mg/dL (8.5-10.1); Chloride 107 mmol/L (98-107); Cholesterol 127 mg/dL (200); Creatinine, Serum 0.65 mg/dL (0.55-1.02); EST Glomerular Filtration Rate 96 mL/min (>60); Est Glom Filt Rate - Afr Amer 116 mL/min (>60); Globulin 4.1 g/dL (2.2-4.2); Glucose 178 mg/dL (74-106); High Density Lipoprotein 61 mg/dL; Potassium 3.6 mmol/L (3.5-5.1); Protein, Total 7.4 g/dL (6.4-8.2); Sodium Level 139 mmol/L (136-145); Thyroid Stim Hormone (TSH) 0.576 uIU/mL (0.358-3.740); Triglycerides 83 mg/dL; Very Low Density Lipoprotein 17 mg/dL (5-40)
== END | disposition home or self-care (01) ==
LOC: LAB 11:30
PROVIDERS: PCP Internal Medicine; Referring Provider Internal Medicine; Visit Provider Internal Medicine
DX: E78.2 Mixed hyperlipidemia (principal); E11.65 Type 2 diabetes mellitus with hyperglycemia; R80.9 Proteinuria, unspecified
CPT/HCPCS: 36415; 80053; 80061; 81001; 82043; 82570; 84443; 85025

== ENCOUNTER → 2025-05-28 | Outpatient (CLI) | payer MEDICARE, OTHER, SELFPAY | END | disposition home or self-care (01) | LOC: OPBD 12:25 | PROVIDERS: PCP Internal Medicine; Referring Provider Internal Medicine; Visit Provider Internal Medicine | DX: Z78.0 Asymptomatic menopausal state (principal) | CPT/HCPCS: 77080 ==